=== PATIENT | female | born 1980 | race African-American/Black ===

== ENCOUNTER 2018-03-02 17:46 | Emergency (ER) | payer OTHER ==
[2018-03-02 18:33] VITALS: BMI 24.3
[2018-03-02] MEDS ORDERED: ALBUTEROL SO4 2.5/IPRATROPIUM 0.5 INH SOL 3 ML VIAL.NEB. NEB ONE (20:19)
--- NOTE | 2018-03-02 20:51 | PDOC ---
History of Present Illness <Rehana Rivera - Last Filed: 03/02/18 22:49> - General History Source: Care Provider Exam Limitations: Clinical Condition - History of Present Illness Initial Comments: Ms. Wise is a 37 yo F with a hx of microcephalus, epilepsy, quadriplegia, scoliosis, asthma, and intellectual disability presents to the emergency department from [facility] with wheezing and increased noisy breathing. Per the nursing staff, she began having the wheezes at approximately 5 pm. The patient is non verbal and thus unable to take history from the patient. [facility] Allergies: NKDA Social hx: Denies tobacco, alcohol, and substance abuse <Keshav Delarosa - Last Filed: 03/04/18 01:33> - General Chief Complaint: Respiratory Stated Complaint: WHEEZING Time Seen by Provider: 03/02/18 18:50 Past History <Rehana Rivera - Last Filed: 03/02/18 22:49> - Past Medical History Asthma: Yes Cardiac Disorders: Yes COPD: No GI Disorders: Yes (esophagitis) Seizures: Yes (epilepsy) - Immunization History Immunization Up to Date: Yes - Suicide/Smoking/Psychosocial Hx Smoking History: Never smoked Hx Alcohol Use: No Drug/Substance Use Hx: No Substance Use Type: None <Keshav Delarosa - Last Filed: 03/04/18 01:33> - Past Medical History Allergies/Adverse Reactions: Allergies Allergy/AdvReac Type Severity Reaction Status Date / Time No Known Allergies Allergy Verified 03/02/18 18:31 Home Medications: Ambulatory Orders Calcium Carbonate/Vitamin D3 [Oyster Shell+D 250 mg Tablet] 500 mg GT BID Phenobarbital 32.4 mg GT DAILY 11/18/14 Phenobarbital 64.8 mg GT HS 11/18/14 Baclofen [Lioresal -] 20 mg GT BID tablet 11/28/14 Albuterol 2.5/Ipratropium 0.5 [Duoneb -] 1 neb NEB BID 01/01/18 Montelukast Sodium [Singulair] 10 mg PO HS 01/01/18 Bacitracin - [Bacitracin Topical Ointment -] 1 applic TP BID 03/02/18 Budesonide/Formeterol Fumarate [SYMBICORT 80/4.5mcg -] 1 inh PO BID 03/02/18 Clotrimazole [Antifungal] 14 gm TP BID 03/02/18 Hydrocortisone 1% Cream [Hytone 1% Cream -] 1 applic TP BID 03/02/18 Magnesium Hydrox 2400MG/30Ml [Milk of Magnesia -] 30 ml PO DAILY 03/02/18 Multivit-Min/FA/Lycopen/Lutein [Vitrum 50+ Senior Tablet] 1 each PO DAILY Mupirocin Cream [Bactroban 2% Cream -] 1 applic TP PRN PRN 03/02/18 Salicylic Acid/Sulfur [Sebex Shampoo] 118 ml TP DAILY 03/02/18 Review of Systems - Review of Systems Able to Perform ROS?: No (Unable to communicate ) <Keshav Delarosa - Last Filed: 03/04/18 01:33> *Physical Exam - Vital Signs Last Vital Signs Temp Pulse Resp BP Pulse Ox 98.2 F 115 H 16 111/82 95 03/02/18 22:41 03/02/18 22:41 03/02/18 22:41 03/02/18 22:41 03/02/18 22:41 <Rehana Rivera - Last Filed: 03/02/18 22:49> - Vital Signs Last Vital Signs Temp Pulse Resp BP Pulse Ox 98.9 F 112 H 22 122/86 97 03/02/18 18:31 03/02/18 18:31 03/02/18 18:31 03/02/18 18:31 03/02/18 19:36 - Physical Exam Comments: 03/04/18 01:23 Exam was limited due to patient's condition General Appearance: Yes: Nourished, Appropriately Dressed, Other (wheelchair bound. Loud upper respiratory breathing) HEENT: positive: EOMI, HI, Other (large keloid masses around the neck - per the registered nursing professor this is unchanged throughout the years. ) Neck: positive: Trachea midline. negative: Lymphadenopathy (R), Lymphadenopathy (L) Respiratory/Chest: positive: Wheezing (wheezing present in the lung [place] bilaterally. ). negative: Chest Tender, Respiratory Distress, Accessory Muscle Use Cardiovascular: positive: Regular Rhythm, S1, S2, Tachycardia. negative: Systolic Murmur Gastrointestinal/Abdominal: positive: Normal Bowel Sounds, Other (g tube present ). negative: Tender Musculoskeletal: positive: Decreased Range of Motion (deformed extremities - chronic. ). negative: Normal Inspection Extremity: positive: Normal Capillary Refill, Other (contracted all four extremities. ) Neurologic: positive: Alert <Keshav Delarosa - Last Filed: 03/04/18 01:33> ED Treatment Course - Medications Given in the ED: ED Medications Discontinued Medications Generic Name Dose Route Start Last Admin Trade Name Freq PRN Reason Stop Dose Admin Albuterol/Ipratropium 3 amp 03/02/18 20:19 03/02/18 21:05 Duoneb - NEB 03/02/18 20:20 3 amp ONCE ONE Administration <MiguelRehana Vickers - Last Filed: 03/02/18 22:49> - RADIOLOGY Radiology Studies Ordered: Category Date Time Status CHEST X-RAY PORTABLE* [RAD] Stat Radiology 03/02/18 20:20 Taken <Keshav Delarosa - Last Filed: 03/04/18 01:33> Medical Decision Making - Medical Decision Making 03/04/18 01:23 37 yo F with multiple significant past medical history presents to the emergency department with wheezing. ddx: URI, PNA, asthma exacerbation, bronchiolitis Initial vitals: Initial Vital Signs Temp Pulse Resp BP Pulse Ox 98.9 F 112 H 22 122/86 97 03/02/18 18:31 03/02/18 18:31 03/02/18 18:31 03/02/18 18:31 03/02/18 18:31 Work up: CXR does not show acute pathologies. Given 3 amps of duoneb in the department. Her O2 sats improved and the wheezing ceased. Patient appeared more comfortable and was discharged back to [facility] after speaking to Dr. Hooks and Nurse Sue. Dispo: DC to home <Keshav Delarosa - Last Filed: 03/04/18 01:33> *DC/Admit/Observation/Transfer <Rehana Rivera - Last Filed: 03/02/18 22:49> - Discharge Dispostion Decision to Admit order: No <Keshav Delarosa - Last Filed: 03/04/18 01:33> Diagnosis at time of Disposition: Asthma exacerbation Qualifiers: Asthma severity: mild Asthma persistence: unspecified Qualified Code(s): J45.901 - Unspecified asthma with (acute) exacerbation - Discharge Dispostion Disposition: HOME Condition at time of disposition: Stable - Patient Instructions Printed Discharge Instructions: DI for Asthma -- Adult Additional Instructions: please followup with Dr Jessee Mak
--- NOTE | 2018-03-02 22:20 | PDOC ---
Attending Attestation - Resident Resident Name: Keshav Delarosa - ED Attending Attestation I have performed the following: I have examined & evaluated the patient, The case was reviewed & discussed with the resident, I agree w/resident's findings & plan, Exceptions are as noted <Rehana Rivera - Last Filed: 03/02/18 22:49> - HPI HPI: 03/02/18 22:37 The patient is a 37 year old female, with a significant past medical history of MR, scoliosis, microcephalus, quadriplegia, epilepsy, asthma (many admissions, previously bipap/intubated per records), who presents to the emergency department from [facility] with, wheezing. The patient is contracted, nonverbal, and nonambulatory at baseline. Allergies: NKA Past surgical history: g-tube insertion, intubation - Physicial Exam PE: 03/02/18 22:51 GENERAL: Well-appearing, well-nourished. No apparent distress. HEENT: Microcephalus. Large keloid around the the entire neck. atraumatic. PERRL, EOM intact. CARDIOVASCULAR: Normal S1, S2. Regular rate and rhythm. PULMONARY: Scattered wheezing bilaterally. ABDOMEN: Soft, non-distended, non-tender. EXTREMITIES: Contracted all 4 extremities. Functional quadriplegia. SKIN: Large keloid to the antecubital fossa. Warm, dry. No rash NEUROLOGICAL: Nonverbal and nonambulatory at baseline. - Medical Decision Making 03/02/18 22:[address] Hooks, case was discussed. Call placed to Nurse Rogers, Case was discussed. [phone] Chest x-ray showed no effusions or infiltrates. Patient is discharged on bronchodilators. <Adrianna Randhawa - Last Filed: 03/02/18 22:51> Attestations - Attestations 03/02/18 22:41 Documentation prepared by Adrianna Randhawa, acting as vice president medical affairs for Rehana Rivera MD. <Adrianna Randhawa - Last Filed: 03/02/18 22:51>
[2018-03-02 22:45] VITALS: BP 111/82; PULSE 115; TEMP 98.2
== END 2018-03-02 23:04 | disposition home or self-care (01) ==
LOC: JER 17:46
PROC: 3E0F7GC Introduction of Other Therapeutic Substance into Respiratory Tract, Via Natural or Artificial Opening (ICD-10-PCS; principal; 2018-03-02)
DX: J45.901 Unspecified asthma with (acute) exacerbation (principal)
CPT/HCPCS: 71045-TC-FY; 94640; 99282-25; J7620

== ENCOUNTER 2018-03-31 19:28 | Observation (INO) | payer OTHER ==
[2018-03-31 19:54] VITALS: BMI 23.8
[2018-03-31] MEDS ORDERED: prednisoLONE SODIUM PHOSPHATE 15 MG/5 ML ORAL SOLN BOTTLE PO ONE (19:57)
[2018-03-31] MEDS ORDERED: DEXAMETHASONE SOD PHOSPHATE 10 MG/1 ML VIAL IM ONE (20:00)
--- NOTE | 2018-03-31 20:00 | PDOC ---
History of Present Illness - General Chief Complaint: Respiratory Distress Stated Complaint: ASTHMA Time Seen by Provider: 03/31/18 19:50 History Source: [facility] Records ([facility] : Dr. Jessee Mak) - History of Present Illness Initial Comments: 03/31/18 20:49 37 year old female with history of profound MR, seizure disorder, microcephalus , Seborrheic dermatitis, keloids, asthma send by PCP for evaluation. as Per PCp patient is currently on prednisone, duonebs and Augmentin, noted to be sating 84 % on RA and 94% on 2l, Patient was send for the evaluation. Past History - Past Medical History Allergies/Adverse Reactions: Allergies Allergy/AdvReac Type Severity Reaction Status Date / Time No Known Allergies Allergy Verified 03/31/18 19:54 Home Medications: Ambulatory Orders Calcium Carbonate/Vitamin D3 [Oyster Shell+D 250 mg Tablet] 500 mg GT BID Phenobarbital 32.4 mg GT DAILY 11/18/14 Phenobarbital 64.8 mg GT HS 11/18/14 Baclofen [Lioresal -] 20 mg GT BID tablet 11/28/14 Albuterol 2.5/Ipratropium 0.5 [Duoneb -] 1 neb NEB BID 01/01/18 Montelukast Sodium [Singulair] 10 mg PO HS 01/01/18 Bacitracin - [Bacitracin Topical Ointment -] 1 applic TP BID 03/02/18 Budesonide/Formeterol Fumarate [SYMBICORT 80/4.5mcg -] 1 inh PO BID 03/02/18 Clotrimazole [Antifungal] 14 gm TP BID 03/02/18 Hydrocortisone 1% Cream [Hytone 1% Cream -] 1 applic TP BID 03/02/18 Magnesium Hydrox 2400MG/30Ml [Milk of Magnesia -] 30 ml PO DAILY 03/02/18 Multivit-Min/FA/Lycopen/Lutein [Vitrum 50+ Senior Tablet] 1 each PO DAILY Mupirocin Cream [Bactroban 2% Cream -] 1 applic TP PRN PRN 03/02/18 Salicylic Acid/Sulfur [Sebex Shampoo] 118 ml TP DAILY 03/02/18 Asthma: Yes Cardiac Disorders: Yes COPD: No GI Disorders: Yes (esophagitis) Seizures: Yes (epilepsy) - Immunization History Immunization Up to Date: Yes - Suicide/Smoking/Psychosocial Hx Smoking History: Never smoked Hx Alcohol Use: No Drug/Substance Use Hx: No Substance Use Type: None Review of Systems - Review of Systems Able to Perform ROS?: Yes Is the patient limited Upper Sorbian proficient: No Constitutional: No: Symptoms Reported, See HPI, Chills, Diaphoresis, Fever, Loss of Appetite, Malaise, Night Sweats, Weakness, Weight Stable, Unintentional Wgt. Loss, Unexplained wgt Loss, Other Respiratory: Yes: Shortness of Breath, Wheezing Cardiac (ROS): No: Symptoms Reported, See HPI, Chest Pain, Edema, Irregular Heart Rate, Lightheadedness, Palpitations, Syncope, Chest Tightness, Other ABD/GI: No: Symptoms Reported, See HPI, Abdominal Distended, Abd. Pain w/ defecation, Blood Streaked Bowels, Constipated, Diarrhea, Difficulty Swallowing , Nausea, Poor Appetite, Poor Fluid Intake, Rectal Bleeding, Vomiting, Indigestion, Abdominal cramping, Tarry Stools, Other : No: Symptoms Reported, See HPI, Burning, Dysuria, Discharge, Frequency, Flank Pain, Hematuria, Incontinence, Pain, Urgency, Testicular Mass, Testicular Swelling, Lesions, Testicular Pain, Other *Physical Exam - Vital Signs 03/31/18 20:53 Last Vital Signs Temp Pulse Resp BP Pulse Ox 97.4 F L 151 H 22 H 110/66 96 03/31/18 20:25 03/31/18 19:30 03/31/18 20:25 03/31/18 19:30 03/31/18 20:34 - Physical Exam General Appearance: Yes: Moderate Distress Respiratory/Chest: positive: Rales, Wheezing, Other (cough) Gastrointestinal/Abdominal: positive: Normal Bowel Sounds, Soft, Other (GTT in place). negative: Tender Musculoskeletal: positive: Other (has sevre scoliosis) Extremity: positive: Normal Capillary Refill Integumentary: positive: Normal Color, Dry, Warm ED Treatment Course - LABORATORY CBC & Chemistry Diagram: 03/31/18 21:18 03/31/18 21:18 Progress Note - Progress Note Progress Note: A: sepsis, respiratory distress Medical Decision Making - Medical Decision Making 03/31/18 21:05 HRT: 117 resp 19 o2 sat 94-96% on room air. O2 sat 96-97% on room air. improved aeration. 03/31/18 22:49 Lactic acid 3 . hydration in process i spoke to Dr. Ulises Mak. patient to be admitted for 03/31/18 22:53 I spoke to SUNNY Murphy at [facility]. patients respiratory status improved. 03/31/18 23:15 patient signed out to Dr. Avila/ Dr. krause *DC/Admit/Observation/Transfer Diagnosis at time of Disposition: Elevated lactic acid level, Hypoxia, Lactic acidosis Asthma exacerbation Qualifiers: Asthma severity: moderate Asthma persistence: persistent Qualified Code(s): J45.41 - Moderate persistent asthma with (acute) exacerbation Sepsis Qualifiers: Sepsis type: sepsis due to unspecified organism Qualified Code(s): A41.9 - Sepsis, unspecified organism Pneumonia Qualifiers: Pneumonia type: due to unspecified organism Laterality: unspecified laterality Lung location: unspecified part of lung Qualified Code(s): J18.9 - Pneumonia, unspecified organism - Discharge Dispostion Condition at time of disposition: Guarded Decision to Admit order: Yes - Referrals - Patient Instructions - Post Discharge Activity
[2018-03-31] MEDS ORDERED: ALBUTEROL SO4 0.083% IH SOL 2.5 MG/3 ML VIAL.NEB. NEB ONE (20:06)
[2018-03-31] MEDS ORDERED: DEXAMETHASONE SOD PHOSPHATE 10 MG/1 ML VIAL ONE (20:07)
[2018-03-31] MEDS: ALBUTEROL SO4 0.083% IH SOL 2.5 MG/3 ML VIAL.NEB. NEB PRN ×3 (20:15→21:00)
[2018-03-31 21:37] LABS: BASO % 0.3 % (0-2.0); EOS % 0.8 % (0-4.5); HEMATOCRIT 46.4 % (32.4-45.2); HEMOGLOBIN 14.9 GM/dL (10.7-15.3); LYMPH % 13.6 % (8-40); MCH 27.1 pg (25.7-33.7); MCHC 32.2 g/dl (32.0-36.0); MEAN CELL VOLUME 84.2 fl (80-96); MEAN PLT VOLUME 9.6 fl (7.5-11.1); MONO % 8.3 % (3.8-10.2); PLATELET COUNT 281 K/MM3 (134-434); RBC 5.52 M/mm3 (3.60-5.2); RDW 14.4 % (11.6-15.6); WHITE BLOOD COUNT 12.3 K/mm3 (4.0-10.0)
[2018-03-31] MEDS ORDERED: SODIUM CHLORIDE 0.9% 1000 ML INFUS.BAG IV STA (21:44)
[2018-03-31 22:00] LABS: ALBUMIN 3.6 g/dl (3.4-5.0); ALK PHOS 85 U/L (45-117); ANION GAP 7 MMOL/L (8-16); BILIRUBIN,TOTAL 0.2 mg/dL (0.2-1); BLOOD UREA NITROGEN 12 mg/dL (7-18); CALCIUM 9.4 mg/dL (8.5-10.1); CHLORIDE 110 mmol/L (98-107); CO2 20 mmol/L (21-32); CREATININE 0.4 mg/dL (0.55-1.3); GLUCOSE,RANDOM 78 mg/dL (74-106); POTASSIUM 3.5 mmol/L (3.5-5.1); SGOT/AST 25 U/L (15-37); SGPT/ALT 36 U/L (13-61); SODIUM 137 mmol/L (136-145); TOT PROT 7.6 g/dl (6.4-8.2)
[2018-03-31] MEDS ORDERED: SODIUM CHLORIDE 1,000 ML IV STA (22:48)
[2018-03-31] MEDS ORDERED: PIPERACILLIN/TAZOBACTAM 4.5 GM VIAL IVPB ONE (22:49)
[2018-03-31] MEDS ORDERED: VANCOMYCIN 1 GRAM (PRE-DOCKED) 1,000 MG/250 ML BAG IVPB ONE (22:50)
--- NOTE | 2018-03-31 22:55 | PDOC ---
*Physical Exam - Vital Signs Last Vital Signs Temp Pulse Resp BP Pulse Ox 97.4 F L 151 H 22 H 110/66 96 03/31/18 20:25 03/31/18 19:30 03/31/18 20:25 03/31/18 19:30 03/31/18 20:34 - Physical Exam Comments: 03/31/18 22:51 Alert, mild respiratory distress. nonverbal, contracted. MMM, nl conjunctiva, anicteric; neck supple. tachycardic, mild respiratory distress 2/2 tachypnea. expiratory rhonchi with poor effort. abdomen soft nontender. No peripheral edema. normal color for ethnicity, WWP. +skin lesions over neck and arms abdomen. ED Treatment Course - LABORATORY CBC & Chemistry Diagram: 03/31/18 21:18 03/31/18 21:18 - ADDITIONAL ORDERS Additional order review: Laboratory Results 03/31/18 03/31/18 21:56 21:18 Sodium 137 Potassium 3.5 Chloride 110 H Carbon Dioxide 20 L Anion Gap 7 L BUN 12 Creatinine 0.4 L Creat Clearance w eGFR > 60 Random Glucose 78 Lactic Acid 3.3 H* Calcium 9.4 Total Bilirubin 0.2 AST 25 ALT 36 Alkaline Phosphatase 85 Total Protein 7.6 Albumin 3.6 03/31/18 21:18 RBC 5.52 H MCV 84.2 MCHC 32.2 RDW 14.4 MPV 9.6 Neutrophils % 77.0 Lymphocytes % 13.6 D Monocytes % 8.3 Eosinophils % 0.8 Basophils % 0.3 - Medications Given in the ED: ED Medications Discontinued Medications Generic Name Dose Route Start Last Admin Trade Name Freq PRN Reason Stop Dose Admin Dexamethasone Sodium Phosphate 10 mg 03/31/18 20:00 03/31/18 20:15 Decadron Injection - IM 03/31/18 20:01 10 mg ONCE ONE Administration Medical Decision Making - Medical Decision Making 03/31/18 22:51 Elvin 37 year old female with history of profound MR, seizure disorder, microcephalus, Seborrheic dermatitis, keloids, asthma from [place] for respiratory distress and hypoxia. patient is currently on prednisone, duonebs and Augmentin, noted to be SpO2 84% on RA and 94% on 2l, Patient was send for the evaluation. Vitals with tachypnea, tachycardia and low sats 94% initially on RA. afebrile rectally. Labs and lytes with leukocytosis of >12K, meeting sepsis criteria. Lactic elevated >3, given hydration will repeat. CXR appears clear. However, respiratory sx and hypoxia may be suggestive of pneumonia, will treat as health care associated. Refractory to outpatient abx, will broaden to vanc/zosyn given risk factors, chronic lung disease and facility residence. Blood and sputum cultures pending. Placed on NC for comfort. Duonebs and dexamethasone additionally. On reeval, no acute respiratory distress, does desats down to ~94% on RA, unknown baseline. History is limited due to comorbidities and nonverbal status, warrants observation for continued treatment Admit for asthma exacerbation, acute respiratory failure, pneumonia with pulse ox and tele monitoring. Discussed results and management plan with pt and family member at bedside, agree with impression and plan 03/31/18 22:54 *DC/Admit/Observation/Transfer Diagnosis at time of Disposition: Pneumonia, Acute respiratory failure, Hypoxia, Lactic acidosis, Sepsis Asthma exacerbation Qualifiers: Asthma severity: moderate Asthma persistence: persistent Qualified Code(s): J45.41 - Moderate persistent asthma with (acute) exacerbation - Discharge Dispostion Condition at time of disposition: Guarded Decision to Admit order: Yes - Referrals - Patient Instructions - Post Discharge Activity
--- NOTE | 2018-03-31 23:23 | PN ---
Teaching Attending Note Name of Resident: Chau Sawyer ATTENDING PHYSICIAN STATEMENT I saw and evaluated the patient. I reviewed the resident's note and discussed the case with the resident. I agree with the resident's findings and plan as documented. SUBJECTIVE: Patient is a 37 year old woman with a PMH of profound MR, scoliosis, microcephalus, quadriplegia, epilepsy, asthma (many admissions, previously bipap /intubated per records), Seborrheic dermatitis and keloids who presents to the ER from [facility] for respiratory distress and hypoxia. Patient is currently on prednisone, duonebs and Augmentin. Noted to have SpO2 84% on RA and 94% on 2l. Noted to have tachycardia, tachypnea and lactic acidosis in the ER. The patient is contracted, nonverbal, and nonambulatory at baseline. No witnessed recent seizures. OBJECTIVE: Alert, nonverbal Vital Signs Period Temp Pulse Resp BP Sys/Holley Pulse Ox Last 24 Hr 97.4 F-99.4 F 151 22-30 110/66 94-97 HEENT: No Jaundice, eye redness or discharge, PERRLA, Normocephalic, atraumatic. Keloid right ear. No nasal discharge. Neck: Supple, nontender. No palpable adenopathy or thyromegaly. No JVD Chest: Good effort. Clear to auscultation and percussion. Heart: Regular. No S3, rub or murmur Abdomen: Not distended, soft, nontender and no HSM. PEG in place. Diapers in place. No rebound or guarding. Normoactive bowel sounds. Ext: Peripheral pulses intact. No leg edema. Skin: Warm and dry. No petechiae, rash or ecchymosis. Multiple keloids. Neuro: Alert. Nonverbal. Limb contractures. Current Medications Generic Name Dose Route Start Last Admin Trade Name Freq PRN Reason Stop Dose Admin Albuterol Sulfate 1 amp 03/31/18 19:57 03/31/18 20:30 Ventolin 0.083% Nebulizer Soln - NEB 1 amp Q15M PRN Administration Dyspnea Home Medications Medication Instructions Recorded Calcium Carbonate/Vitamin D3 500 mg GT BID 11/18/14 [Oyster Shell+D 250 mg Tablet] Phenobarbital 32.4 mg GT DAILY 11/18/14 Phenobarbital 64.8 mg GT HS 11/18/14 Baclofen [Lioresal -] 20 mg GT BID tablet 11/28/14 Albuterol 2.5/Ipratropium 0.5 1 neb NEB BID 01/01/18 [Duoneb -] Montelukast Sodium [Singulair] 10 mg PO HS 01/01/18 Bacitracin - [Bacitracin Topical 1 applic TP BID 03/02/18 Ointment -] Budesonide/Formeterol Fumarate 1 inh PO BID 03/02/18 [SYMBICORT 80/4.5mcg -] Clotrimazole [Antifungal] 14 gm TP BID 03/02/18 Hydrocortisone 1% Cream [Hytone 1% 1 applic TP BID 03/02/18 Cream -] Magnesium Hydrox 2400MG/30Ml [Milk 30 ml PO DAILY 03/02/18 of Magnesia -] Multivit-Min/FA/Lycopen/Lutein 1 each PO DAILY 03/02/18 [Vitrum 50+ Senior Tablet] Mupirocin Cream [Bactroban 2% 1 applic TP PRN PRN 03/02/18 Cream -] Salicylic Acid/Sulfur [Sebex 118 ml TP DAILY 03/02/18 Shampoo] Abnormal Lab Results 03/31/18 03/31/18 03/31/18 21:18 21:18 21:56 WBC 12.3 H RBC 5.52 H Hct 46.4 H D Absolute Neuts (auto) 9.4 H Chloride 110 H Carbon Dioxide 20 L Anion Gap 7 L Creatinine 0.4 L Lactic Acid 3.3 H* ASSESSMENT AND PLAN: 1. Sepsis - No acute infiltrate on CXR. May have alternative explanation for lactic acidosis, but pending blood culture report, will treat with IV vancomycin and zosyn and consult ID. Urine legionella antigen. Duoneb q 4 hours and solumedrol 40 mg q 8 hours. Continue IV NS and trend lactic acid level. 2. DVT prophylaxis - Lovenox 40 mg SQ q 24 hours. 3. Advance directives - Full code
--- NOTE | 2018-03-31 23:56 | HP ---
CHIEF COMPLAINT: Per [facility] staff: Oxygen desaturation PCP: Dr Watson- [facility] HISTORY OF PRESENT ILLNESS: Pt is a 37 y/o lady with a significant past medical history of MR, congenital scoliosis (insertion of lugue gavin), melissa fundoplication, microcephalus, otitis media, volvulus small bowel quadriplegia, epilepsy, GERD, Vancomycin Resistant Enterococcus, and asthma who presented to [facility] yesterday evening () due to decreased oxygen saturation and increased work of breathing. Per [facility] staff, pt's SpO2 was 84% on room air and 94% on 2L O2. Pt is currently receiving prednisone, duoneb treatments, and augmentin at [facility]. Pt is contracted, nonverbal, and nonambulatory. Upon admission, pt was observed to be tachycardic, tachypneic, and to have a lactic acid level of 3.3. No witnessed seizure activity since 09/28/2013 per [facility] records. Pt was last seen in our ED on 03/02 of this year for asthma exacerbation. ER course was notable for: (1) Lactic Acid 3.3 (2) WBC 12.3 (3) RR on admission 33, HR 151 Recent Travel: negative PAST MEDICAL HISTORY: per HPI PAST SURGICAL HISTORY: Lugue gavin gavin insertion, G-Tube placement, appendectomy , cholecystectomy. Social History: Smoking: negative Alcohol: negative Drugs: negative Family History: Allergies No Known Allergies Allergy (Verified 03/31/18 19:54) HOME MEDICATIONS: Home Medications Medication Instructions Recorded Calcium Carbonate/Vitamin D3 500 mg GT BID 11/18/14 [Oyster Shell+D 250 mg Tablet] Phenobarbital 32.4 mg GT DAILY 11/18/14 Phenobarbital 64.8 mg GT HS 11/18/14 Baclofen [Lioresal -] 20 mg GT BID tablet 11/28/14 Albuterol 2.5/Ipratropium 0.5 1 neb NEB BID 01/01/18 [Duoneb -] Montelukast Sodium [Singulair] 10 mg PO HS 01/01/18 Bacitracin - [Bacitracin Topical 1 applic TP BID 03/02/18 Ointment -] Budesonide/Formeterol Fumarate 1 inh PO BID 03/02/18 [SYMBICORT 80/4.5mcg -] Clotrimazole [Antifungal] 14 gm TP BID 03/02/18 Hydrocortisone 1% Cream [Hytone 1% 1 applic TP BID 03/02/18 Cream -] Magnesium Hydrox 2400MG/30Ml [Milk 30 ml PO DAILY 03/02/18 of Magnesia -] Multivit-Min/FA/Lycopen/Lutein 1 each PO DAILY 03/02/18 [Vitrum 50+ Senior Tablet] Mupirocin Cream [Bactroban 2% 1 applic TP PRN PRN 03/02/18 Cream -] Salicylic Acid/Sulfur [Sebex 118 ml TP DAILY 03/02/18 Shampoo] REVIEW OF SYSTEMS Unable to obtain-pt nonverbal PHYSICAL EXAMINATION Vital Signs - 24 hr 03/31/18 03/31/18 03/31/18 19:30 20:25 20:34 Temperature 99.4 F 97.4 F L Pulse Rate 151 H Respiratory 30 H 22 H Rate Blood Pressure 110/66 O2 Sat by Pulse 94 L 97 96 Oximetry (%) GENERAL: Awake and Alert. Nonverbal. Tracks movement with eyes. HEAD: Microcephalic. Atraumatic EYES: PERRLA, EOMI EARS, NOSE, THROAT: MMM, missing teeth NECK: Multiple large keloids LUNGS: expiratory rhonchi HEART: Tachycardic, No MRG ABDOMEN: PEG in place. ND, NT, No Guarding MSK: Severe Scoliosis UPPER EXTREMITIES: Contractures upper and lower contractures. LOWER EXTREMITIES: Contractures upper and lower contractures. SKIN: Moist. Keloids. Laboratory Results - last 24 hr 03/31/18 03/31/18 03/31/18 21:18 21:18 21:56 WBC 12.3 H RBC 5.52 H Hgb 14.9 Hct 46.4 H D MCV 84.2 MCH 27.1 MCHC 32.2 RDW 14.4 Plt Count 281 MPV 9.6 Absolute Neuts (auto) 9.4 H Neutrophils % 77.0 Lymphocytes % 13.6 D Monocytes % 8.3 Eosinophils % 0.8 Basophils % 0.3 Nucleated RBC % 0 Sodium 137 Potassium 3.5 Chloride 110 H Carbon Dioxide 20 L Anion Gap 7 L BUN 12 Creatinine 0.4 L Creat Clearance w eGFR > 60 Random Glucose 78 Lactic Acid 3.3 H* Calcium 9.4 Total Bilirubin 0.2 AST 25 ALT 36 Alkaline Phosphatase 85 Total Protein 7.6 Albumin 3.6 ASSESSMENT/PLAN: Pt is a 37 y/o lady with a significant past medical history of MR, scoliosis, microcephalus, quadriplegia, epilepsy, and asthma (many admissions, previously bipap/intubated per records) who presented to [facility] yesterday evening (04/01/18 ) due to decreased oxygen saturation and increased work of breathing. # Sepsis 2/2 URI? -Lactic Acid 3.3, continue to trend - HR 151, RR 30. 2 SIRS Criteria met, source may be respiratory -Vanc/Zosyn until blood cultures results -ID Consult -Received 1,197cc bolus NS in ED -Continue IV Fluids -Influenza A and B # Lactic acidosis 2/2 asthma exacerbation and hyperventilation? -May be due to increased work of diaphragm -Received 3 amps Ventolin, 10 mg Decadron in ED -Ventolin Q4H Cathryn -Solumedrol 40 mg q8h -Spiriva -f/u lactic repeat lactic acid FEN NS@100cc/hr Monitor Electrolytes NPO, G-Tube Feeds DVT ppx: Hep SQ TID Dispo: Obs Visit type - Emergency Visit Emergency Visit: Yes ED Registration Date: 03/31/18 Care time: The patient presented to the Emergency Department on the above date and was hospitalized for further evaluation of their emergent condition. - New Patient This patient is new to me today: Yes Date on this admission: 04/01/18 - Critical Care Critical Care patient: No
[2018-03-31] MEDS ORDERED: PIPERACILLIN/TAZOB 4.5 GM 4.5 GM/100 ML BAG IVPB ONE (23:58)
[2018-04-01] MEDS ORDERED: VANCOMYCIN 1 GRAM (PRE-DOCKED) 1,000 MG/250 ML BAG IVPB ONE (00:42)
[2018-04-01] MEDS ORDERED: ALBUTEROL SO4 2.5/IPRATROPIUM 0.5 INH SOL 3 ML VIAL.NEB. NEB SCH (01:30)
[2018-04-01] MEDS ORDERED: methylPREDNISolone NA SUCC 40 MG/1 ML VIAL ONE (01:46)
[2018-04-01] MEDS ORDERED: ALBUTEROL SO4 0.083% IH SOL 2.5 MG/3 ML VIAL.NEB. NEB ONE (01:46)
[2018-04-01] MEDS: methylPREDNISolone NA SUCC 40 MG/1 ML VIAL IVPB SCH ×2 (02:25→10:01)
[2018-04-01] MEDS: ALBUTEROL SO4 0.083% IH SOL 2.5 MG/3 ML VIAL.NEB. NEB SCH ×5 (02:25→17:10)
[2018-04-01] MEDS ORDERED: SODIUM CHLORIDE 1,000 ML IV SCH (02:30)
[2018-04-01 02:38] LABS: VENOUS PC02 34.4 mmHg (38-52); VENOUS PH 7.4 (7.32-7.42)
[2018-04-01 02:48] LABS: URINE APPEARANCE CLEAR; URINE BILIRUBIN NEGATIVE (<2.0 mg/dL); URINE COLOR YELLOW; URINE GLUCOSE (UA) NEGATIVE (NEGATIVE); URINE KETONE 1+ (NEGATIVE); URINE LEUK ESTERASE NEGATIVE (NEGATIVE); URINE NITRITE NEGATIVE (NEGATIVE); URINE PROTEIN NEGATIVE (NEGATIVE); URINE UROBILINOGEN NEGATIVE mg/dL (0.2-1.0)
[2018-04-01] MEDS: HEPARIN NA (PORCINE) 5,000 UNITS/ML 1ML VIAL SQ SCH ×2 (06:17→15:28)
[2018-04-01 07:53] LABS: BASO % 0.2 % (0-2.0); HEMATOCRIT 42.7 % (32.4-45.2); HEMOGLOBIN 13.6 GM/dL (10.7-15.3); LYMPH % 8.1 % (8-40); MCH 27.2 pg (25.7-33.7); MEAN CELL VOLUME 85.1 fl (80-96); MEAN PLT VOLUME 9.5 fl (7.5-11.1); MONO % 3.8 % (3.8-10.2); NEUT % 87.9 % (42.8-82.8); PLATELET COUNT 255 K/MM3 (134-434); RBC 5.01 M/mm3 (3.60-5.2); RDW 14.3 % (11.6-15.6); WHITE BLOOD COUNT 6.7 K/mm3 (4.0-10.0)
[2018-04-01 08:02] LABS: ANION GAP 7 MMOL/L (8-16); BLOOD UREA NITROGEN 10 mg/dL (7-18); CHLORIDE 110 mmol/L (98-107); CO2 20 mmol/L (21-32); CREATININE 0.3 mg/dL (0.55-1.3); GLUCOSE,RANDOM 109 mg/dL (74-106); MAGNESIUM 2.1 mg/dL (1.8-2.4); PHOSPHOROUS 3.1 mg/dL (2.5-4.9); POTASSIUM 3.9 mmol/L (3.5-5.1); SODIUM 137 mmol/L (136-145)
[2018-04-01 08:38] LABS: INR 1.12 (0.83-1.09); PROTHROMBIN TIME (PATIENT) 13.2 SEC (9.7-13.0)
[2018-04-01 08:40] LABS: ACTIVATED PTT 27.3 SECONDS (25.2-36.5)
--- NOTE | 2018-04-01 09:37 | CON.ID ---
Consult Consult Specialty:: infectious disease Referred by:: hospitalist service Reason for Consultation:: possible pneumonia - History of Present Illness Chief Complaint: cough, hypoxia History of Present Illness: 37 yo female resident [facility] admitted with cough and hypoxia- she has a history of asthma, treated with augmentin 03/26 for 7 days and duonebs and prednisone taper sent to ED yesterday for persistent symptoms-cough cxray no clear infiltrate RA pulse ox 94% received zosyn/vancomycin/steroids in ED cultures sent resting comfortably with occasional cough now no supplemental oxygen, RA sat is 96% elevated lactic acid 3.3 - History Source History Provided By: Medical Record Limitations to Obtaining History: Clinical Condition - Past Medical History 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 ex lap for intestinal obstruction, small bowel volvulus. spinal fusion for scoliosis - Alcohol/Substance Use Hx Alcohol Use: No - Smoking History Smoking history: Never smoked Have you smoked in the past 12 months: No Home Medications - Allergies Allergies/Adverse Reactions: Allergies Allergy/AdvReac Type Severity Reaction Status Date / Time No Known Allergies Allergy Verified 03/31/18 19:54 - Home Medications Home Medications: Ambulatory Orders Calcium Carbonate/Vitamin D3 [Oyster Shell+D 250 mg Tablet] 500 mg GT BID Phenobarbital 32.4 mg GT DAILY 11/18/14 Phenobarbital 64.8 mg GT HS 11/18/14 Baclofen [Lioresal -] 20 mg GT BID tablet 11/28/14 Albuterol 2.5/Ipratropium 0.5 [Duoneb -] 1 neb NEB BID 01/01/18 Montelukast Sodium [Singulair] 10 mg PO HS 01/01/18 Bacitracin - [Bacitracin Topical Ointment -] 1 applic TP BID 03/02/18 Budesonide/Formeterol Fumarate [SYMBICORT 80/4.5mcg -] 1 inh PO BID 03/02/18 Hydrocortisone 1% Cream [Hytone 1% Cream -] 1 applic TP BID 03/02/18 Multivit-Min/FA/Lycopen/Lutein [Vitrum 50+ Senior Tablet] 1 each PO DAILY Salicylic Acid/Sulfur [Sebex Shampoo] 118 ml TP DAILY 03/02/18 Amoxicillin/Potassium Clav [Augmentin 875-125 Tablet] 1 each PO BID 04/01/18 Magnesium Hydrox 2400MG/30Ml [Milk of Magnesia -] 30 ml PO HS 04/01/18 Prednisone [Deltasone] 20 mg PO DAILY 04/01/18 Family Disease History - Family Disease History Family History: Unable to Obtain Review of Systems Unable to obtain ROS, reason: unable to obtain - Review of Systems Respiratory: reports: Cough Physical Exam Vital Signs: Vital Signs Temperature 97.7 F 04/01/18 06:07 Pulse Rate 107 H 04/01/18 06:07 Respiratory Rate 18 04/01/18 06:07 Blood Pressure 126/64 04/01/18 06:07 O2 Sat by Pulse Oximetry (%) 94 L 04/01/18 05:32 Constitutional: Yes: No Distress, Calm Eyes: Yes: Conjunctiva Clear HENT: Yes: Atraumatic, Normocephalic Cardiovascular: Yes: Regular Rate and Rhythm Respiratory: Yes: Regular Gastrointestinal: Yes: Normal Bowel Sounds, Soft, Other (GT) Extremities: Yes: WNL Edema: No Integumentary: Yes: Other (multiple keloids around neck, axilla, abdomen well healed back incision no sacral ulcers) Neurological: Yes: Alert Labs: CBC, BMP 04/01/18 06:45 04/01/18 06:45 cultures pending Imaging - Results Chest X-ray: Report Reviewed, Image Reviewed Problem List - Problems (1) Asthma exacerbation Code(s): J45.901 - UNSPECIFIED ASTHMA WITH (ACUTE) EXACERBATION Qualifiers: Asthma severity: moderate Asthma persistence: persistent Qualified Code(s ): J45.41 - Moderate persistent asthma with (acute) exacerbation (2) Bronchitis Code(s): J40 - BRONCHITIS, NOT SPECIFIED ACUTE OR CHRONIC (3) Lactic acidosis Code(s): E87.2 - ACIDOSIS (4) Seizure disorder Code(s): G40.909 - EPILEPSY, UNSP, NOT INTRACTABLE, WITHOUT STATUS EPILEPTICUS (5) History of keloid of skin Code(s): Z87.2 - PERSONAL HISTORY OF DISEASES OF THE SKIN, SUBCU Assessment/Plan doubt pneumonia would check rsv antigen given cough and history of hypoxia can treat with zithromax no evidence pneumonia on cxray suspect lactic acidosis is due to asthma exacerbation doubt sepsis
[2018-04-01] MEDS ORDERED: PT OWN MED DRAWER 7, Y5N ONE (09:51)
[2018-04-01] MEDS ORDERED: HYDROCORTISONE 1% TOPICAL CREAM 30 GM TUBE TP SCH (10:00)
[2018-04-01] MEDS ORDERED: MULTIVITAMINS (DAILY MVI) TABLET (FP) NR SCH (10:00)
[2018-04-01] MEDS ORDERED: CALCIUM 250MG/VIT-D 125 UNITS 1 COMBO TABLET NR SCH (10:00)
[2018-04-01] MEDS ORDERED: BACLOFEN 10 MG TABLET (FP) GT SCH (10:00)
[2018-04-01] MEDS ORDERED: SULFUR TP SCH (10:00)
[2018-04-01] MEDS ORDERED: PHENobarbital 30 MG TABLET GT SCH ×2 (10:00→22:00)
[2018-04-01] MEDS ORDERED: BACITRACIN 15 GM TUBE TOPICAL OINTMENT TP SCH (10:00)
[2018-04-01] MEDS ORDERED: TIOTROPIUM BROMIDE 2.5 MCG (SPIRIVA) RESPIMAT INHALER IH SCH (10:00)
[2018-04-01] MEDS ORDERED: SALICYLIC ACID TP SCH (10:00)
[2018-04-01] MEDS ORDERED: AZITHROMYCIN IVPB 500 MG/250 ML BAG IVPB ONE (10:30)
[2018-04-01] MEDS ORDERED: predniSONE 20 MG TABLET (UD) PO SCH ×2 (10:45→10:46)
--- NOTE | 2018-04-01 10:47 | EKG ---
Test Reason : Blood Pressure : / mmHG Vent. Rate : 101 BPM Atrial Rate : 101 BPM P-R Int : 120 ms QRS Dur : 068 ms QT Int : 360 ms P-R-T Axes : 051 058 045 degrees QTc Int : 466 ms SINUS TACHYCARDIA NONSPECIFIC T WAVE ABNORMALITY ABNORMAL ECG WHEN COMPARED WITH ECG OF 01-JAN-2018 14:05, NO SIGNIFICANT CHANGE WAS FOUND Confirmed by CR REINA MD ([id number]) on 04/01/2018 10:46:54 AM Referred By: Confirmed By:CR REINA MD
[2018-04-01 14:15] VITALS: BP 110/72; PULSE 91; TEMP 97.7
--- NOTE | 2018-04-01 15:25 | PN ---
Teaching Attending Note Name of Resident: Ary Kim ATTENDING PHYSICIAN STATEMENT I saw and evaluated the patient. I reviewed the resident's note and discussed the case with the resident. I agree with the resident's findings and plan as documented with exceptions below. SUBJECTIVE: Patient seen and examined, non verbal, awake, comfortable. OBJECTIVE: Vital Signs Period Temp Pulse Resp BP Sys/[place]ley Pulse Ox Last 24 Hr 97.4 F-99.4 F 91-151 18-30 101-126/64-80 94-100 Intake & Output 03/29/18 03/30/18 03/31/18 04/01/18 23:59 23:59 23:59 23:59 Intake Total 200 Balance 200 Weight 88 lb 88 lb General: lying in bed in no acute distress Chest: good air entry, occasional rhonchi, no use of accessory muscles Abdomen;Soft, ND, positive bowel sounds Neck: right neck keloid Extremities: contractures Home Medications Medication Instructions Recorded Calcium Carbonate/Vitamin D3 500 mg GT BID 11/18/14 [Oyster Shell+D 250 mg Tablet] Phenobarbital 32.4 mg GT DAILY 11/18/14 Phenobarbital 64.8 mg GT HS 11/18/14 Baclofen [Lioresal -] 20 mg GT BID tablet 11/28/14 Albuterol 2.5/Ipratropium 0.5 1 neb NEB BID 01/01/18 [Duoneb -] Montelukast Sodium [Singulair] 10 mg PO HS 01/01/18 Budesonide/Formeterol Fumarate 2 inh PO BID 03/02/18 [SYMBICORT 80/4.5mcg -] Multivit-Min/FA/Lycopen/Lutein 1 each PO DAILY 03/02/18 [Vitrum 50+ Senior Tablet] Salicylic Acid/Sulfur [Sebex 118 ml TP Q2D 03/02/18 Shampoo] Azithromycin [Zithromax -] 250 mg PO DAILY #4 tablet 04/01/18 Magnesium Hydrox 2400MG/30Ml [Milk 30 ml PO HS 04/01/18 of Magnesia -] Mupirocin Ointment [Bactroban 2% 1 applic TP BID 04/01/18 Ointment -] predniSONE [Deltasone -] See Taper PO ASDIR #20 tab 04/01/18 Active Medications Al Hydroxide/Mg Hydroxide (Mylanta Oral Suspension -) 30 ml GT HS JAMIL Albuterol Sulfate (Ventolin 0.083% Nebulizer Soln -) 1 amp NEB Q4HWA [facility] Last Admin: 04/01/18 11:00 Dose: 1 amp Bacitracin (Bacitracin -) 1 applic TP BID [facility] Last Admin: 04/01/18 10:57 Dose: 1 applic Baclofen (Lioresal -) 20 mg GT BID [facility] Last Admin: 04/01/18 10:01 Dose: 20 mg Calcium/Vitamin D (Oscal 250 Mg+D -) 1 tab NR BID [facility] Last Admin: 04/01/18 10:02 Dose: 1 tab Heparin Sodium (Porcine) (Heparin -) 5,000 unit SQ TID [facility] Last Admin: 04/01/18 06:17 Dose: 5,000 unit Hydrocortisone (Hytone 1% Cream -) 1 applic TP BID JAMIL Sodium Chloride (Normal Saline -) 1,000 mls @ 100 mls/hr IV ASDIR [facility] Last Admin: 04/01/18 02:25 Dose: 100 mls/hr Azithromycin 250 mg/ Dextrose 250 mls @ 250 mls/hr IVPB DAILY [facility] Montelukast Sodium (Singulair -) 10 mg GT HS JAMIL Multivitamins/Minerals/Vitamin C (Tab-A-Vit -) 1 tab NR DAILY [facility] Last Admin: 04/01/18 10:01 Dose: 1 tab Phenobarbital (Phenobarbital -) 30 mg GT DAILY [facility] Last Admin: 04/01/18 10:02 Dose: 30 mg Phenobarbital (Phenobarbital -) 60 mg GT HS [facility] Prednisone (Deltasone -) 40 mg PO DAILY [facility] Tiotropium [place] (Spiriva Respimat) 2 puff IH DAILY [facility] Laboratory Results - last 24 hr 03/31/18 03/31/18 03/31/18 21:18 21:18 21:56 WBC 12.3 H RBC 5.52 H Hgb 14.9 Hct 46.4 H D MCV 84.2 MCH 27.1 MCHC 32.2 RDW 14.4 Plt Count 281 MPV 9.6 Absolute Neuts (auto) 9.4 H Neutrophils % 77.0 Lymphocytes % 13.6 D Monocytes % 8.3 Eosinophils % 0.8 Basophils % 0.3 Nucleated RBC % 0 PT with INR INR PTT (Actin FS) VBG pH POC VBG pCO2 POC VBG pO2 Mixed VBG HCO3 Sodium 137 Potassium 3.5 Chloride 110 H Carbon Dioxide 20 L Anion Gap 7 L BUN 12 Creatinine 0.4 L Creat Clearance w eGFR > 60 Random Glucose 78 Lactic Acid 3.3 H* Calcium 9.4 Phosphorus Magnesium Total Bilirubin 0.2 AST 25 ALT 36 Alkaline Phosphatase 85 Troponin I Total Protein 7.6 Albumin 3.6 Urine Color Urine Appearance Urine pH Ur Specific [place] Urine Protein Urine Glucose (UA) Urine Ketones Urine Blood Urine Nitrite Urine Bilirubin Urine Urobilinogen Ur Leukocyte Esterase 04/01/18 04/01/18 04/01/18 02:00 02:15 02:26 WBC RBC Hgb Hct MCV MCH MCHC RDW Plt Count MPV Absolute Neuts (auto) Neutrophils % Lymphocytes % Monocytes % Eosinophils % Basophils % Nucleated RBC % PT with INR INR PTT (Actin FS) VBG pH 7.40 POC VBG pCO2 34.4 L POC VBG pO2 106.0 H Mixed VBG HCO3 20.6 Sodium Potassium Chloride Carbon Dioxide Anion Gap BUN Creatinine Creat Clearance w eGFR Random Glucose Lactic Acid Calcium Phosphorus Magnesium Total Bilirubin AST ALT Alkaline Phosphatase Troponin I < 0.02 Total Protein Albumin Urine Color Yellow Urine Appearance Clear Urine pH 5.0 D Ur Specific [place] 1.032 Urine Protein Negative Urine Glucose (UA) Negative Urine Ketones 1+ H Urine Blood Negative Urine Nitrite Negative Urine Bilirubin Negative Urine Urobilinogen Negative Ur Leukocyte Esterase Negative 04/01/18 04/01/18 04/01/18 02:26 06:45 06:45 WBC 6.7 RBC 5.01 Hgb 13.6 Hct 42.7 MCV 85.1 MCH 27.2 MCHC 32.0 RDW 14.3 Plt Count 255 MPV 9.5 Absolute Neuts (auto) 5.9 Neutrophils % 87.9 H Lymphocytes % 8.1 D Monocytes % 3.8 Eosinophils % 0.0 D Basophils % 0.2 Nucleated RBC % 0 PT with INR 13.20 H INR 1.12 H PTT (Actin FS) 27.3 VBG pH POC VBG pCO2 POC VBG pO2 Mixed VBG HCO3 Sodium Potassium Chloride Carbon Dioxide Anion Gap BUN Creatinine Creat Clearance w eGFR Random Glucose Lactic Acid 3.4 H* Calcium Phosphorus Magnesium Total Bilirubin AST ALT Alkaline Phosphatase Troponin I Total Protein Albumin Urine Color Urine Appearance Urine pH Ur Specific [place] Urine Protein Urine Glucose (UA) Urine Ketones Urine Blood Urine Nitrite Urine Bilirubin Urine Urobilinogen Ur Leukocyte Esterase 04/01/18 06:45 WBC RBC Hgb Hct MCV MCH MCHC RDW Plt Count MPV Absolute Neuts (auto) Neutrophils % Lymphocytes % Monocytes % Eosinophils % Basophils % Nucleated RBC % PT with INR INR PTT (Actin FS) VBG pH POC VBG pCO2 POC VBG pO2 Mixed VBG HCO3 Sodium 137 Potassium 3.9 Chloride 110 H Carbon Dioxide 20 L Anion Gap 7 L BUN 10 Creatinine 0.3 L Creat Clearance w eGFR > 60 Random Glucose 109 H Lactic Acid Calcium 9.0 Phosphorus 3.1 Magnesium 2.1 Total Bilirubin AST ALT Alkaline Phosphatase Troponin I Total Protein Albumin Urine Color Urine Appearance Urine pH Ur Specific [place] Urine Protein Urine Glucose (UA) Urine Ketones Urine Blood Urine Nitrite Urine Bilirubin Urine Urobilinogen Ur Leukocyte Esterase ASSESSMENT AND PLAN: 37 yof from [facility] with MR, congenital scoliosis (insertion of lugue gavin) , melissa fundoplication, microcephalus, otitis media, volvulus small bowel quadriplegia, epilepsy, GERD, Vancomycin Resistant Enterococcus, and asthma admitted with transient hypoxia -transient hypoxia, ?Aspiration vs mild asthma exacerbation -MR Plan: oxygenating well on RA, breathing comfortably, ID input noted. Azithromycin for 4 days. Prednisone rapid taper. continue home meds. resume tube feeds Dc back to [place].
--- NOTE | 2018-04-01 15:26 | DS ---
Physical Exam: SUBJECTIVE: Patient seen and examined this morning at bedside. Patient non verbal at baseline. Not requiring supplemental O2 since arriving on the floors. No overnight events since arrival as per nursing. Unable to perform review of systems. OBJECTIVE: Vital Signs Period Temp Pulse Resp BP Sys/Holley Pulse Ox Last 24 Hr 97.4 F-99.4 F 91-151 18-30 101-126/64-80 94-100 PHYSICAL EXAM GENERAL: NAD, lying comfortably with head of bed elevated, Nonverbal HEAD: Microcephalic, Atraumatic EYES: PERRL NECK: Supple, No JVD, Multiple large keloids LUNGS: Limited exam, Poor inspiratory effort however no rhonchi or crackles noted HEART: RRR, S1 S2 without murmur ABDOMEN: Soft, nontender, nondistended, + bowel sounds, no guarding. G tube in place with clean, dry surrounding dressing, no surrounding erythema EXTREMITIES: 2+ pulses, No peripheral edema, Extremities contracted b/l NEUROLOGICAL: Unable to assess due to baseline mental status. SKIN: Warm, dry, multiple Keloids present LABS Laboratory Results - last 24 hr 03/31/18 03/31/18 03/31/18 21:18 21:18 21:56 WBC 12.3 H RBC 5.52 H Hgb 14.9 Hct 46.4 H D MCV 84.2 MCH 27.1 MCHC 32.2 RDW 14.4 Plt Count 281 MPV 9.6 Absolute Neuts (auto) 9.4 H Neutrophils % 77.0 Lymphocytes % 13.6 D Monocytes % 8.3 Eosinophils % 0.8 Basophils % 0.3 Nucleated RBC % 0 PT with INR INR PTT (Actin FS) VBG pH POC VBG pCO2 POC VBG pO2 Mixed VBG HCO3 Sodium 137 Potassium 3.5 Chloride 110 H Carbon Dioxide 20 L Anion Gap 7 L BUN 12 Creatinine 0.4 L Creat Clearance w eGFR > 60 Random Glucose 78 Lactic Acid 3.3 H* Calcium 9.4 Phosphorus Magnesium Total Bilirubin 0.2 AST 25 ALT 36 Alkaline Phosphatase 85 Troponin I Total Protein 7.6 Albumin 3.6 Urine Color Urine Appearance Urine pH Ur Specific Stovall Urine Protein Urine Glucose (UA) Urine Ketones Urine Blood Urine Nitrite Urine Bilirubin Urine Urobilinogen Ur Leukocyte Esterase 04/01/18 04/01/18 04/01/18 02:00 02:15 02:26 WBC RBC Hgb Hct MCV MCH MCHC RDW Plt Count MPV Absolute Neuts (auto) Neutrophils % Lymphocytes % Monocytes % Eosinophils % Basophils % Nucleated RBC % PT with INR INR PTT (Actin FS) VBG pH 7.40 POC VBG pCO2 34.4 L POC VBG pO2 106.0 H Mixed VBG HCO3 20.6 Sodium Potassium Chloride Carbon Dioxide Anion Gap BUN Creatinine Creat Clearance w eGFR Random Glucose Lactic Acid Calcium Phosphorus Magnesium Total Bilirubin AST ALT Alkaline Phosphatase Troponin I < 0.02 Total Protein Albumin Urine Color Yellow Urine Appearance Clear Urine pH 5.0 D Ur Specific Stovall 1.032 Urine Protein Negative Urine Glucose (UA) Negative Urine Ketones 1+ H Urine Blood Negative Urine Nitrite Negative Urine Bilirubin Negative Urine Urobilinogen Negative Ur Leukocyte Esterase Negative 04/01/18 04/01/18 04/01/18 02:26 06:45 06:45 WBC 6.7 RBC 5.01 Hgb 13.6 Hct 42.7 MCV 85.1 MCH 27.2 MCHC 32.0 RDW 14.3 Plt Count 255 MPV 9.5 Absolute Neuts (auto) 5.9 Neutrophils % 87.9 H Lymphocytes % 8.1 D Monocytes % 3.8 Eosinophils % 0.0 D Basophils % 0.2 Nucleated RBC % 0 PT with INR 13.20 H INR 1.12 H PTT (Actin FS) 27.3 VBG pH POC VBG pCO2 POC VBG pO2 Mixed VBG HCO3 Sodium Potassium Chloride Carbon Dioxide Anion Gap BUN Creatinine Creat Clearance w eGFR Random Glucose Lactic Acid 3.4 H* Calcium Phosphorus Magnesium Total Bilirubin AST ALT Alkaline Phosphatase Troponin I Total Protein Albumin Urine Color Urine Appearance Urine pH Ur Specific Stovall Urine Protein Urine Glucose (UA) Urine Ketones Urine Blood Urine Nitrite Urine Bilirubin Urine Urobilinogen Ur Leukocyte Esterase 04/01/18 06:45 WBC RBC Hgb Hct MCV MCH MCHC RDW Plt Count MPV Absolute Neuts (auto) Neutrophils % Lymphocytes % Monocytes % Eosinophils % Basophils % Nucleated RBC % PT with INR INR PTT (Actin FS) VBG pH POC VBG pCO2 POC VBG pO2 Mixed VBG HCO3 Sodium 137 Potassium 3.9 Chloride 110 H Carbon Dioxide 20 L Anion Gap 7 L BUN 10 Creatinine 0.3 L Creat Clearance w eGFR > 60 Random Glucose 109 H Lactic Acid Calcium 9.0 Phosphorus 3.1 Magnesium 2.1 Total Bilirubin AST ALT Alkaline Phosphatase Troponin I Total Protein Albumin Urine Color Urine Appearance Urine pH Ur Specific Stovall Urine Protein Urine Glucose (UA) Urine Ketones Urine Blood Urine Nitrite Urine Bilirubin Urine Urobilinogen Ur Leukocyte Esterase Microbiology 03/31/18 21:18 Blood - Peripheral Venous Blood Culture - Preliminary NO GROWTH OBTAINED AFTER 24 HOURS, INCUBATION TO CONTINUE FOR 4 DAYS. 03/31/18 21:18 Blood - Peripheral Venous Blood Culture - Preliminary NO GROWTH OBTAINED AFTER 24 HOURS, INCUBATION TO CONTINUE FOR 4 DAYS. 04/01/18 10:00 Nasopharyngeal Swab Respiratory Syncytial Virus Ag - Final 04/01/18 02:26 Urine For Antigen Detection Legionella Antigen - Final 04/01/18 02:26 Urine For Antigen Detection Streptococcus pneumoniae Antigen (M - Final IMAGING: -CXR: Limited study with no acute pathology. HOSPITAL COURSE: Date of Admission:03/31/18 Date of Discharge: 04/01/18 37 y/o F with PMHx of MR, scoliosis, microcephalus, quadriplegia, epilepsy, and asthma (multiple previous admissions, hx of bipap/intubated per records) who presented to [facility] with decreased oxygen saturation. CXR (noted above) did not show any acute pathology. Patient was given breathing treatments and 2 doses of IV Solumederol. Infectious disease was consulted and recommended a course of Zithromax. She was taken off of Supplemental O2 and oxygenated well on Room air breathing comfortably without any audible wheezes. Patient was discharged back to [facility] on a 5 day course of Zithromax 250mg daily, a prednisone taper, and instructions to resume home meds. Minutes to complete discharge: 40 Discharge Summary Reason For Visit: EXACERBATION OF ASTHMA,HYPOXIA,SEPSIS, Current Active Problems Asthma exacerbation (Acute) Elevated lactic acid level (Acute) History of keloid of skin (Acute) Hypoxia (Acute) Lactic acidosis (Acute) Condition: Improved - Instructions Diet, Activity, Other Instructions: You were admitted to the hospital because your oxygen saturation decreased to 84 %. You received breathing treatments and Steroids and your breathing improved. You are now saturating at >92%on room air. Imaging did not reveal any acute pathology. You are being discharged on a 5 day course of Zithromax 250mg. You are being discharged on a Steroid taper as follows: 40mg daily for 2 days 30mg daily for 2 days 20mg daily for 2 days 10mg daily for 2 days You are also being discharged on a nebulizer treatment to help with breathing. Please continue to implement aspiration percautions including keeping the head of the bed elevated. Please follow up with your primary care physician in one week. Continue all your other medications as prescribed Please return to the ER if you have any signs or symptoms of chest pain, shortness of breath, uncontrollable fever, chills, nausea, vomiting, numbness, tingling, or weakness in any part of your body, changes in vision, or slurred speech. Please return to the ER if symptoms persist, worsen, or new symptoms arise. Disposition: [facility]ACILITY - Home Medications Comprehensive Discharge Medication List: Ambulatory Orders Calcium Carbonate/Vitamin D3 [Oyster Shell+D 250 mg Tablet] 500 mg GT BID Phenobarbital 32.4 mg GT DAILY 11/18/14 Phenobarbital 64.8 mg GT HS 11/18/14 Baclofen [Lioresal -] 20 mg GT BID tablet 11/28/14 Albuterol 2.5/Ipratropium 0.5 [Duoneb -] 1 neb NEB BID 01/01/18 Montelukast Sodium [Singulair] 10 mg PO HS 01/01/18 Budesonide/Formeterol Fumarate [SYMBICORT 80/4.5mcg -] 2 inh PO BID 03/02/18 Multivit-Min/FA/Lycopen/Lutein [Vitrum 50+ Senior Tablet] 1 each PO DAILY Salicylic Acid/Sulfur [Sebex Shampoo] 118 ml TP Q2D 03/02/18 Azithromycin [Zithromax -] 250 mg PO DAILY #4 tablet 04/01/18 Magnesium Hydrox 2400MG/30Ml [Milk of Magnesia -] 30 ml PO HS 04/01/18 Mupirocin Ointment [Bactroban 2% Ointment -] 1 applic TP BID 04/01/18 predniSONE [Deltasone -] See Taper PO ASDIR #20 tab 04/01/18 This patient is new to me today: Yes Date on this admission: 03/31/18 Emergency Visit: Yes ED Registration Date: 03/31/18 Care time: The patient presented to the Emergency Department on the above date and was hospitalized for further evaluation of their emergent condition. Critical Care patient: No - Discharge Referral Referred to [facility] Med P.C.: No
[2018-04-01] MEDS ORDERED: MAG HYDROX/AL HYDROX/SIMETH 30 ML UNIT-DOSE CUP GT SCH (22:00)
[2018-04-01] MEDS ORDERED: MONTELUKAST NA 10 MG TABLET GT SCH (22:00)
[2018-04-02] MEDS ORDERED: AZITHROMYCIN IVPB 250 MG in DEXTROSE 5%-WATER - 250 ML IVPB SCH (10:00)
== END 2018-04-01 18:28 ==
LOC: JER 19:28 → INTOOBSV 22:57 → UNDOADMOB 22:57 → JERBED 22:57 → J7W 04-01 03:55
PROVIDERS: ADMIT Internal Medicine; ATTEND Hospitalist
PROC: 3E0333Z Introduction of Anti-inflammatory into Peripheral Vein, Percutaneous Approach (ICD-10-PCS; principal; 2018-03-31)
PROC: 3E03329 Introduction of Other Anti-infective into Peripheral Vein, Percutaneous Approach (ICD-10-PCS; 2018-03-31)
PROC: 3E0337Z Introduction of Electrolytic and Water Balance Substance into Peripheral Vein, Percutaneous Approach (ICD-10-PCS; 2018-03-31)
PROC: 3E023NZ Introduction of Analgesics, Hypnotics, Sedatives into Muscle, Percutaneous Approach (ICD-10-PCS; 2018-03-31)
PROC: 3E013GC Introduction of Other Therapeutic Substance into Subcutaneous Tissue, Percutaneous Approach (ICD-10-PCS; 2018-03-31)
PROC: 3E0F7GC Introduction of Other Therapeutic Substance into Respiratory Tract, Via Natural or Artificial Opening (ICD-10-PCS; 2018-03-31)
DX: J45.41 Moderate persistent asthma with (acute) exacerbation (principal); A41.9 Sepsis, unspecified organism; R74.0 Nonspecific elevation of levels of transaminase and lactic acid dehydrogenase [LDH]; R09.02 Hypoxemia; E87.2 Acidosis; F73 Profound intellectual disabilities; G40.909 Epilepsy, unspecified, not intractable, without status epilepticus; L21.9 Seborrheic dermatitis, unspecified; J40 Bronchitis, not specified as acute or chronic; Z87.2 Personal history of diseases of the skin and subcutaneous tissue
CPT/HCPCS: 36415; 71045-TC-FY; 80048; 80053; 81003; 82803; 83605; 83735; 84100; 84484; 85025; 85610; 85730; 87040; 87086; 87420; 87899; 93005; 93010; 94640; 96365; 96372; 96375; 99285-25; G0378; J0475; J1100; J1644; J7030

== ENCOUNTER 2018-07-24 20:15 | Emergency (ER) | payer OTHER ==
--- NOTE | 2018-07-24 20:24 | PDOC ---
Rapid Medical Evaluation Time Seen by Provider: 07/24/18 20:22 Medical Evaluation: Allergies Allergy/AdvReac Type Severity Reaction Status Date / Time No Known Allergies Allergy Verified 03/31/18 19:54 07/24/18 20:22 I have performed a brief in-person evaluation of this patient. The patient presents with a chief complaint of:R foot pain tenderness, no specific injury Pertinent physical exam findings:pt non verbal in wheelchair R foot swelling I have ordered the following:x-ray The patient will proceed to the ED for further evaluation. Discharge Disposition - Diagnosis Foot pain, right - Referrals - Patient Instructions - Post Discharge Activity
[2018-07-24 20:34] VITALS: BP 106/74; PULSE 107; TEMP 98; BMI 33.7
== END 2018-07-24 21:56 | disposition home or self-care (01) ==
LOC: JER 20:15 → JERFT 20:15
DX: M79.671 Pain in right foot (principal)
CPT/HCPCS: 99281-25

== ENCOUNTER → 2018-07-25 | Emergency (ER) | payer OTHER | LOC: JER 08:39 ==

== ENCOUNTER 2018-08-08 13:39 | Emergency (ER) | payer OTHER ==
[2018-08-08 13:46] VITALS: BMI 29.6
--- NOTE | 2018-08-08 14:49 | PDOC ---
History of Present Illness - General Chief Complaint: Shortness of Breath Stated Complaint: DIFFICULT BREATHING Time Seen by Provider: 08/08/18 14:47 - History of Present Illness Initial Comments: 38yo F sent from [facility] with history of microcephaly, epilepsy, quadriplegia, scoliosis, and asthma presenting with shortness of breath. Patient 's aide is at the bedside, but since care was recently transferred to her, she is not able to provide much collateral history regarding patient's recent history. She states patient is breathing more loudly than at her baseline. Unknown what treatments she had received so far, or if she has had any fever. Past History - Past Medical History Allergies/Adverse Reactions: Allergies Allergy/AdvReac Type Severity Reaction Status Date / Time No Known Allergies Allergy Verified 08/08/18 13:43 Home Medications: Ambulatory Orders Acetaminophen Oral Solution [Tylenol Oral Solution -] 650 mg GT Q6H PRN Baclofen 20 mg GT BID 08/08/18 Budesonide/Formeterol Fumarate [SYMBICORT 80/4.5mcg -] 1 inh IN BID 08/08/18 Budesonide/Formeterol Fumarate [SYMBICORT 80/4.5mcg -] 2 inh PO BID 08/08/18 Calcium Carbonate/Vitamin D3 [Oyster Shell 500-Vit D3 200 Pk] 1 each GT BID Clotrimazole 45 appful TD BID 08/08/18 Hydrocortisone 1% Cream [Hytone 1% Cream -] 1 applic TP BID 08/08/18 Ipratropium/Albuterol Sulfate [Iprat-Albut 0.5-3(2.5) mg/3 ml] 3 ml IH QID 08/08 Magnesium Hydrox 2400MG/30Ml [Milk of Magnesia -] 30 ml GT HS 08/08/18 Montelukast Na [Singulair -] 10 mg GT HS 08/08/18 Multivit-Min/FA/Lycopen/Lutein [Vitrum 50+ Senior Tablet] 1 each GT DAILY Phenobarbital 32.4 mg GT ASDIR 08/08/18 Phenobarbital 64.8 mg GT HS 08/08/18 Prednisone [Deltasone] 40 mg PO DAILY #10 tablet 08/08/18 Asthma: Yes Cardiac Disorders: Yes COPD: No GI Disorders: Yes (esophagitis) Seizures: Yes (epilepsy) - Surgical History Abdominal Surgery: No Appendectomy: No Cardiac Surgery: No Cholecystectomy: Yes Lung Surgery: No Neurologic Surgery: No Orthopedic Surgery: No - Immunization History Immunization Up to Date: Yes - Suicide/Smoking/Psychosocial Hx Smoking History: Never smoked Have you smoked in the past 12 months: No Information on smoking cessation initiated: No Hx Alcohol Use: No Drug/Substance Use Hx: No Substance Use Type: None Review of Systems - Review of Systems Able to Perform ROS?: No (pt nonverbal) *Physical Exam - Vital Signs Last Vital Signs Temp Pulse Resp BP Pulse Ox 98.6 F 114 H 20 136/88 95 08/08/18 14:25 08/08/18 13:43 08/08/18 13:43 08/08/18 13:43 08/08/18 13:43 - Physical Exam Comments: General: Awake, alert Head: No signs of trauma Eyes: EOMI, sclera anicteric ENT: Moist mucus membranes Neck: Supple, significant keloid present Lungs: Diffuse wheezing bilaterally; breathing audibly upon expiration Cardio: Regular rhythm, S1 and S2 present Abdomen: Soft, nontender. No facial grimacing upon palpation Extremities: Contracted, Distal pulses present SKIN: Warm, Dry, normal turgor Neurologic: Nonverbal, nonambulatory Moderate Sedation - Procedure Monitoring Vital Signs: Procedure Monitoring Vital Signs Temperature 98.6 F 08/08/18 14:25 Pulse Rate 114 H 08/08/18 13:43 Respiratory Rate 20 08/08/18 13:43 Blood Pressure 136/88 08/08/18 13:43 O2 Sat by Pulse Oximetry (%) 95 08/08/18 13:43 ED Treatment Course - LABORATORY CBC & Chemistry Diagram: 08/08/18 17:04 08/08/18 17:04 Medical Decision Making - Medical Decision Making 38yo F sent from [facility] with history of microcephaly, epilepsy, quadriplegia, scoliosis, and asthma presenting with shortness of breath. DDX including but not limited to asthma exacerbation, pneumonia, URI, bronchitis , COPD, allergic reaction [place] paperwork: "residents presents with increase work of breathing. wheezing noted. Vs T 98.5, P 117-123, O2 Sat 94-95% BP 111/62, RR 20/min" Upon calling [place], patient with increased work of breathing for the last three days. Received two breathing treatments today before being sent to the ED with minimal improvement. Leukocytosis noted with eosinophilia, consistent with asthma exacerbation No anemia, electrolytes WNL, Tpn negative, Flu negative CXR without acute pathology Patient with improved lung exam after 3 duonebs, 3 albuterol, 125 solu-medrol, and 2g magnesium 08/08/18 18:[address] Jessee Mak, physician at [facility] 08/08/18 18:44 Discussed case with Nursing Review Specialist and requested transportation for patient' s discharge 40mg prednisone x 5 days sent to pharmacy 08/08/18 19:11 *DC/Admit/Observation/Transfer Diagnosis at time of Disposition: Asthma exacerbation Qualifiers: Asthma severity: unspecified severity Asthma persistence: unspecified Qualified Code(s): J45.901 - Unspecified asthma with (acute) exacerbation - Discharge Dispostion Disposition: HOME Condition at time of disposition: Improved - Prescriptions Prescriptions: Prednisone [Deltasone] 40 mg PO DAILY #10 tablet - Referrals Referrals: Evonne England [Primary Care Provider] - - Patient Instructions Printed Discharge Instructions: DI for Asthma -- Adult Additional Instructions: This patient was seen in the emergency department for an asthma exacerbation. Breathing treatments, solu-medrol, and magnesium improved her symptoms. Follow-up with her surgical services coordinator in one week. We sent prescriptions to your pharmacy: Predisone: Take 40mg daily for the next five days Continue taking home medications as prescribed. Call for emergency medical services or go to the emergency room right away if any of the following occurs: Difficulty breathing, unrelieved by medications Tightness in chest, unrelieved by medications If you think there is an emergency, call for medical help right away. - Post Discharge Activity
[2018-08-08] MEDS ORDERED: ALBUTEROL SO4 2.5/IPRATROPIUM 0.5 INH SOL 3 ML VIAL.NEB. NEB ONE ×2 (14:59→15:15)
[2018-08-08] MEDS ORDERED: FAMOTIDINE 20 MG/50 ML IVPB 20 MG/50 ML MG IVPB ONE (15:56)
[2018-08-08] MEDS ORDERED: ONDANSETRON 4 MG/2 ML VIAL ONE (15:56)
[2018-08-08] MEDS ORDERED: methylPREDNISolone NA SUCC 125 MG/2 ML VIAL IVPB ONE (16:14)
--- NOTE | 2018-08-08 16:18 | PDOC ---
Attending Attestation - Resident Resident Name: CarlosMiguel cervantes - ED Attending Attestation I have performed the following: I have examined & evaluated the patient, The case was reviewed & discussed with the resident, I agree w/resident's findings & plan, Exceptions are as noted - HPI HPI: 08/08/18 16:33 The patient is a 38 year old female (from [facility]) with a significant past medical history of MR, scoliosis, seizure disorder, microcephalus, seborrheic dermatitis, keloids, quadriplegia and asthma (requiring intubation) who presents to the emergency department with shortness of breath. As per the patients aide at bedside, the patient has been experiencing some intermittent loud breathing. As per the patients facility , the patient received 2 neb treatments with no significant relief. No other significant history is provided. History is limited due to pt's clinical status. - Physicial Exam PE: 08/08/18 16:47 GENERAL: Awake, alert, in mild resp distress NECK: multiple keloids almost circumstantially HEAD: No signs of trauma, microcephalic EYES: PERRLA, EOMI, sclera anicteric LUNGS: Breath sounds equal, +diffuse wheezing and tachypnea to 26. Mild costal retractions HEART: tachy but regular to 109, normal S1 and S2, no murmurs, rubs or gallops ABDOMEN: distended, normal BS. GT in place with no surrounding erythema. Rectal temp 99.6 EXTREMITIES: contracted x4, warm NEUROLOGICAL: non verbal, tracks examiner SKIN: multiple keloids to neck, vagina - Medical Decision Making 08/08/18 14:52 38yo F with MMP including asthma presents to the ED with shortness of breath from [facility]. +wheezing and mild increased WOB on exam. Plan for nebs , steroids, XR, flu swab, reassess. 08/08/18 17:14 CXR clear Flu neg Labs pending Pt status post steroids and nebs Still wheezing Will reassess Case signed out to oncoming attending for further mgmt/dispo
[2018-08-08] MEDS ORDERED: methylPREDNISolone NA SUCC 125 MG/2 ML VIAL ONE (16:29)
[2018-08-08] MEDS ORDERED: methylPREDNISolone NA SUCC 40 MG/1 ML VIAL IVPB ONE (16:41)
[2018-08-08] MEDS ORDERED: ALBUTEROL SO4 0.083% IH SOL 2.5 MG/3 ML VIAL.NEB. NEB ONE ×2 (16:41→17:43)
[2018-08-08 17:12] LABS: BASO % 0.6 % (0-2.0); EOS % 12.6 % (0-4.5); HEMATOCRIT 44.3 % (32.4-45.2); HEMOGLOBIN 15.2 GM/dL (10.7-15.3); LYMPH % 11.4 % (8-40); MCHC 34.2 g/dl (32.0-36.0); MEAN CELL VOLUME 84.8 fl (80-96); MEAN PLT VOLUME 8.8 fl (7.5-11.1); MONO % 7.5 % (3.8-10.2); NEUT % 67.9 % (42.8-82.8); PLATELET COUNT 279 K/MM3 (134-434); RBC 5.23 M/mm3 (3.60-5.2); RDW 15.2 % (11.6-15.6); WHITE BLOOD COUNT 12.2 K/mm3 (4.0-10.0)
[2018-08-08] MEDS ORDERED: MAGNESIUM SULF 50% (8.12 MEQ/2 ML-1 GM VIAL) IVPB ONE (17:18)
[2018-08-08] MEDS ORDERED: MAGNESIUM SULF 50% (8.12 MEQ/2 ML-1 GM VIAL) ONE (17:43)
[2018-08-08 18:06] LABS: ALBUMIN 3.3 g/dl (3.4-5.0); ALK PHOS 113 U/L (45-117); ANION GAP 7 MMOL/L (8-16); BLOOD UREA NITROGEN 12 mg/dL (7-18); CHLORIDE 106 mmol/L (98-107); CO2 25 mmol/L (21-32); CREATININE 0.4 mg/dL (0.55-1.3); GLUCOSE,RANDOM 80 mg/dL (74-106); POTASSIUM 4.1 mmol/L (3.5-5.1); SGOT/AST 24 U/L (15-37); SGPT/ALT 30 U/L (13-61); SODIUM 138 mmol/L (136-145); TOT PROT 7.4 g/dl (6.4-8.2)
[2018-08-08 18:07] LABS: BILIRUBIN,TOTAL 0.1 mg/dL (0.2-1)
--- NOTE | 2018-08-08 18:44 | PDOC ---
*Physical Exam - Vital Signs Last Vital Signs Temp Pulse Resp BP Pulse Ox 98.6 F 114 H 20 136/88 95 08/08/18 14:25 08/08/18 13:43 08/08/18 13:43 08/08/18 13:43 08/08/18 13:43 ED Treatment Course - LABORATORY CBC & Chemistry Diagram: 08/08/18 17:04 08/08/18 17:04 - ADDITIONAL ORDERS Additional order review: Laboratory Results 08/08/18 17:04 Sodium 138 Potassium 4.1 Chloride 106 Carbon Dioxide 25 Anion Gap 7 L BUN 12 Creatinine 0.4 L Creat Clearance w eGFR > 60 Random Glucose 80 Calcium 9.0 Total Bilirubin 0.1 L AST 24 ALT 30 Alkaline Phosphatase 113 Troponin I < 0.02 Total Protein 7.4 Albumin 3.3 L 08/08/18 17:04 RBC 5.23 H MCV 84.8 MCHC 34.2 RDW 15.2 MPV 8.8 Neutrophils % 67.9 D Lymphocytes % 11.4 D Monocytes % 7.5 D Eosinophils % 12.6 H D Basophils % 0.6 - Medications Given in the ED: ED Medications Discontinued Medications Generic Name Dose Route Start Last Admin Trade Name Freq PRN Reason Stop Dose Admin Albuterol/Ipratropium 3 amp 08/08/18 14:59 08/08/18 15:21 Duoneb - NEB 08/08/18 15:00 3 amp ONCE ONE Administration Methylprednisolone Sodium Succinate 125 mg 08/08/18 16:14 08/08/18 16:50 Solu-Medrol - IVPB 08/08/18 16:15 125 mg ONCE ONE Administration Medical Decision Making - Medical Decision Making 08/08/18 18:41 Pt endorsed to me by Dr. Chandra at 5pm shift change- receiving nebs and steroids. Also received magnesium. Reexamined s/p treatment, she is much improved. Lungs are clear, and she is in no respiratory distress. Will DC back to [place]. *DC/Admit/Observation/Transfer Diagnosis at time of Disposition: Asthma exacerbation Qualifiers: Asthma severity: unspecified severity Asthma persistence: unspecified Qualified Code(s): J45.901 - Unspecified asthma with (acute) exacerbation - Discharge Dispostion Disposition: HOME Condition at time of disposition: Stable Decision to Admit order: No - Referrals Referrals: Evonne England [Primary Care Provider] - - Patient Instructions - Post Discharge Activity
[2018-08-08 20:03] VITALS: BP 126/77; PULSE 88; TEMP 98.5
== END 2018-08-08 20:57 | disposition home or self-care (01) ==
LOC: JER 13:39
PROC: 3E0F7GC Introduction of Other Therapeutic Substance into Respiratory Tract, Via Natural or Artificial Opening (ICD-10-PCS; principal; 2018-08-08)
PROC: 3E0F7GC Introduction of Other Therapeutic Substance into Respiratory Tract, Via Natural or Artificial Opening (ICD-10-PCS; 2018-08-08)
PROC: 3E033GC Introduction of Other Therapeutic Substance into Peripheral Vein, Percutaneous Approach (ICD-10-PCS; 2018-08-08)
PROC: 3E0333Z Introduction of Anti-inflammatory into Peripheral Vein, Percutaneous Approach (ICD-10-PCS; 2018-08-08)
DX: J45.901 Unspecified asthma with (acute) exacerbation (principal); G40.802 Other epilepsy, not intractable, without status epilepticus; F79 Unspecified intellectual disabilities; Q02 Microcephaly; G80.8 Other cerebral palsy; L21.9 Seborrheic dermatitis, unspecified; L91.0 Hypertrophic scar
CPT/HCPCS: 36415; 71045-TC-FY; 80053; 84484; 85025; 87804; 94640; 96374; 96375; 99282-25

== ENCOUNTER 2018-12-22 20:39 | Inpatient (IN) | payer OTHER ==
--- NOTE | 2018-12-22 21:37 | PDOC ---
History of Present Illness - General Stated Complaint: WHEEZING Time Seen by Provider: 12/22/18 21:26 - History of Present Illness Initial Comments: 12/23/18 00:03 The patient is a 38 year old female with a history of microcephaly, seizures, CAD, developmental delay, Asthma who presents for evaluation of tachycardia and wheezing. The patient is non-verbal at baseline. Per the patient's NH, the patient was noted to be tachycardic and wheezing at her NH today prompting her presentation to the ED for further evaluation. ROS is unobtainable due to the patient's baseline mental status. Past History - Past Medical History Allergies/Adverse Reactions: Allergies Allergy/AdvReac Type Severity Reaction Status Date / Time No Known Allergies Allergy Verified 08/08/18 13:43 Home Medications: Ambulatory Orders Acetaminophen Oral Solution [Tylenol Oral Solution -] 650 mg GT Q6H PRN Baclofen 20 mg GT BID 08/08/18 Budesonide/Formeterol Fumarate [SYMBICORT 80/4.5mcg -] 1 inh IN BID 08/08/18 Budesonide/Formeterol Fumarate [SYMBICORT 80/4.5mcg -] 2 inh PO BID 08/08/18 Calcium Carbonate/Vitamin D3 [Oyster Shell 500-Vit D3 200 Pk] 1 each GT BID Clotrimazole 45 appful TD BID 08/08/18 Hydrocortisone 1% Cream [Hytone 1% Cream -] 1 applic TP BID 08/08/18 Ipratropium/Albuterol Sulfate [Iprat-Albut 0.5-3(2.5) mg/3 ml] 3 ml IH QID 08/08 Magnesium Hydrox 2400MG/30Ml [Milk of Magnesia -] 30 ml GT HS 08/08/18 Montelukast Na [Singulair -] 10 mg GT HS 08/08/18 Multivit-Min/FA/Lycopen/Lutein [Vitrum 50+ Senior Tablet] 1 each GT DAILY Phenobarbital 32.4 mg GT ASDIR 08/08/18 Phenobarbital 64.8 mg GT HS 08/08/18 Prednisone [Deltasone] 40 mg PO DAILY #10 tablet 08/08/18 Asthma: Yes Cardiac Disorders: Yes COPD: No GI Disorders: Yes (esophagitis) Seizures: Yes (epilepsy) - Surgical History Abdominal Surgery: No Appendectomy: No Cardiac Surgery: No Cholecystectomy: Yes Lung Surgery: No Neurologic Surgery: No Orthopedic Surgery: No - Immunization History Immunization Up to Date: Yes - Suicide/Smoking/Psychosocial Hx Smoking History: Never smoked Have you smoked in the past 12 months: No Information on smoking cessation initiated: No Hx Alcohol Use: No Drug/Substance Use Hx: No Substance Use Type: None Review of Systems - Review of Systems Able to Perform ROS?: No (Non-verbal) *Physical Exam - Vital Signs Last Vital Signs Temp Pulse Resp BP Pulse Ox 98.2 F 116 H 23 H 106/68 92 L 12/22/18 21:03 12/22/18 21:03 12/22/18 21:03 12/22/18 21:03 12/22/18 21:03 - Physical Exam Comments: 12/23/18 00:13 General Appearance: Nourished. No Apparent Distress HEENT: No Pharyngeal Erythema, Tonsillar Exudate, Tonsillar Erythema Neck: No Cervical Lymphadenopathy Respiratory/Chest: Lungs Clear, Normal Breath Sounds. Scant wheezing noted on exam. No Crackles, Rales, Rhonchi, Cardiovascular: Regular Rhythm, Tachycardic Rate. No Murmur, Gallops, Rubs Gastrointestinal/Abdominal: Normal Bowel Sounds, Soft. No Guarding, Rebound, Tenderness Musculoskeletal: No CVA Tenderness Extremity: Normal Capillary Refill Integumentary: Normal Color, Dry, Warm Neurologic: Non-verbal at baseline Heart Score/ECG Review #1 ECG reviewed & interpreted by me at: 00:14 12/23/18 00:14 HR 112 [place] 130 QRS 64 QTc [address] No Acute ST Changes ED Treatment Course - LABORATORY CBC & Chemistry Diagram: 12/22/18 22:45 12/22/18 22:45 Medical Decision Making - Medical Decision Making 12/23/18 00:15 The patient is a 38 year old female with a history of microcephaly, seizures, CAD, developmental delay, Asthma who presents for evaluation of tachycardia and wheezing. Differential includes but is not limited to: Sepsis, Asthma Exacerbation, Infectious, Metabolic Derangement. Given the patient's history and physical exam, we will obtain a cbc, cmp, lactate, troponin, coags, vbg, ekg , Chest plain film, blood cultures, to evaluate further. We will treat with duonebs and continue to monitor and reassess while here in the ED. 12/23/18 03:42 CBC, cmp, lactate, troponin were unremarkable. Chest plain film was difficult to interpret due to the patient's rotation and chest CT was obtained which demonstrated a possible small focus of right upper lobe pneumonia as preliminarily read by our data warehouse consultant radiologist. Given the patient's new oxygen requirement and pneumonia on CT, she will require admission for further management. We will treat with vanc and zosyn and solumedrol here in the ED. We discussed the case with the admitting team who accepted the patient for admission *DC/Admit/Observation/Transfer Diagnosis at time of Disposition: Asthma exacerbation Qualifiers: Asthma severity: unspecified severity Asthma persistence: unspecified Qualified Code(s): J45.901 - Unspecified asthma with (acute) exacerbation Pneumonia Qualifiers: Pneumonia type: due to unspecified organism Laterality: unspecified laterality Lung location: unspecified part of lung Qualified Code(s): J18.9 - Pneumonia, unspecified organism - Discharge Dispostion Condition at time of disposition: Stable Decision to Admit order: Yes - Referrals - Patient Instructions - Post Discharge Activity
[2018-12-22] MEDS ORDERED: ALBUTEROL SO4 2.5/IPRATROPIUM 0.5 INH SOL 3 ML VIAL.NEB. NEB ONE ×2 (21:49→22:38)
[2018-12-22 23:13] LABS: VENOUS PC02 41.6 mmHg (41-51); VENOUS PH 7.37 (7.31-7.41)
[2018-12-22 23:14] LABS: VENOUS PO2 26.1 mmHg (30-40)
--- NOTE | 2018-12-22 23:21 | PDOC ---
Documentation entered by Kanwal Dang SCRIBE, acting as scribe for Tarah Knowles DO. Tarah Knowles DO: This documentation has been prepared by the [place] Brenda, SCRIBE, under my direction and personally reviewed by me in its entirety. I confirm that the documentation accurately reflects all work , treatment, procedures, and medical decision making performed by me. Attending Attestation - Resident Resident Name: ShahrzadIshmael - ED Attending Attestation I have performed the following: I have examined & evaluated the patient, The case was reviewed & discussed with the resident, I agree w/resident's findings & plan, Exceptions are as noted - HPI HPI: 12/22/18 23:16 The patient is a 38 year old female, with a significant PMH of microcephaly, epilepsy, quadriplegia, scoliosis, and asthma, who presents to the emergency department [facility] from [place] with wheezing heard by staff. Staff also reported that the heart rate was elevated. History was not obtained by patient due to her being nonverbal. Allergies: NKA Past surgical history: Cholecystectomy Social history: Not reported - Physicial Exam PE: 12/22/18 21:32 Agree with resident's exam. - Medical Decision Making 12/22/18 23:20 38-year-old female with history of severe cognitive deficit, nonambulatory from a shelter facility with an episode of wheezing and increased heart rate Labs, chest x-ray and duo nebs If workup reassuring patient will be discharged back to facility, she is currently not wheezing and has been resting comfortably
[2018-12-22 23:23] LABS: BASO % 0.5 % (0-2.0); EOS % 5.8 % (0-4.5); HEMATOCRIT 48.1 % (32.4-45.2); HEMOGLOBIN 16.1 GM/dL (10.7-15.3); MCH 27.9 pg (25.7-33.7); MCHC 33.4 g/dl (32.0-36.0); MEAN CELL VOLUME 83.7 fl (80-96); MONO % 6.9 % (3.8-10.2); NEUT % 74.8 % (42.8-82.8); PLATELET COUNT 272 K/MM3 (134-434); RBC 5.75 M/mm3 (3.60-5.2); RDW 14.3 % (11.6-15.6); WHITE BLOOD COUNT 7.5 K/mm3 (4.0-10.0)
[2018-12-22 23:38] LABS: ALBUMIN 3.7 g/dl (3.4-5.0); BILIRUBIN,TOTAL 0.4 mg/dL (0.2-1); BLOOD UREA NITROGEN 9.1 mg/dL (7-18); CALCIUM 9.6 mg/dL (8.5-10.1); CREATININE 0.4 mg/dL (0.55-1.3); POTASSIUM 4.2 mmol/L (3.5-5.1); TOT PROT 8.4 g/dl (6.4-8.2)
[2018-12-22 23:42] LABS: INR 1.1 (0.83-1.09)
[2018-12-22 23:45] LABS: ACTIVATED PTT 33.4 SECONDS (25.2-36.5)
[2018-12-23] MEDS ORDERED: ALBUTEROL SO4 0.042% IH SOL 1.25 MG/3 ML VIAL.NEB NEB ONE (01:44)
[2018-12-23] MEDS ORDERED: methylPREDNISolone NA SUCC 125 MG/2 ML VIAL IVPUSH ONE (01:44)
[2018-12-23] MEDS ORDERED: VANCOMYCIN 1 GM in D5W (PRE-DOCKED) 1,000 MG/250 ML IVPB ONE (02:50)
[2018-12-23] MEDS ORDERED: PIPERACILLIN/TAZOB 3.375 GM 3.375 GM in DEXTROSE 5%-WATER - 50 ML IVPB ONE (02:50)
--- NOTE | 2018-12-23 03:47 | PN ---
Teaching Attending Note Name of Resident: Vasile Kurtz ATTENDING PHYSICIAN STATEMENT I saw and evaluated the patient. I reviewed the resident's note and discussed the case with the resident. I agree with the resident's findings and plan as documented. SUBJECTIVE: Patient is a 38 year old woman with PMH of Microcephaly, Esophagitis, Seizures, CAD, Developmental delay and Asthma who presents for evaluation of tachycardia and wheezing. The patient is non-verbal at baseline. Per the patient's NH, the patient was noted to be tachycardic and wheezing at her NH today prompting her presentation to the ER for further evaluation. Review of systems is unobtainable due to the patient's baseline mental status. Has had multiple admissions for acute asthma exacerbation and has been previously intubated. OBJECTIVE: Alert Vital Signs Period Temp Pulse Resp BP Sys/Holley Pulse Ox Last 24 Hr 98.2 F 116 23 106/68 92 HEENT: No Jaundice, eye redness or discharge, PERRLA, EOMI. Normocephalic, atraumatic. Keloid on right ear. No nasal discharge. Neck: Supple, nontender. Keloid on right side of neck. No palpable adenopathy or thyromegaly. No JVD Chest: Good effort. Wheezing and prolonged expiration. Clear to percussion. Heart: Regular. No S3, rub or murmur Abdomen: Not distended, soft, nontender and no HSM. No rebound or guarding. Normal bowel sounds. Ext: Peripheral pulses intact. No leg edema. Contracted limbs. Skin: Warm and dry. No petechiae, rash or ecchymosis. Neuro: Alert. Nonverbal. Quadriplegia. Limited exam. Psych: Appropriate mood and affect. Home Medications Medication Instructions Recorded Acetaminophen Oral Solution 650 mg GT Q6H PRN 08/08/18 [Tylenol Oral Solution -] Baclofen 20 mg GT BID 08/08/18 Budesonide/Formeterol Fumarate 1 inh IN BID 08/08/18 [SYMBICORT 80/4.5mcg -] Budesonide/Formeterol Fumarate 2 inh PO BID 08/08/18 [SYMBICORT 80/4.5mcg -] Calcium Carbonate/Vitamin D3 1 each GT BID 08/08/18 [Oyster Shell 500-Vit D3 200 Pk] Clotrimazole 45 appful TD BID 08/08/18 Hydrocortisone 1% Cream [Hytone 1% 1 applic TP BID 08/08/18 Cream -] Ipratropium/Albuterol Sulfate 3 ml IH QID 08/08/18 [Iprat-Albut 0.5-3(2.5) mg/3 ml] Magnesium Hydrox 2400MG/30Ml [Milk 30 ml GT HS 08/08/18 of Magnesia -] Montelukast Na [Singulair -] 10 mg GT HS 08/08/18 Multivit-Min/FA/Lycopen/Lutein 1 each GT DAILY 08/08/18 [Vitrum 50+ Senior Tablet] Phenobarbital 32.4 mg GT ASDIR 08/08/18 Phenobarbital 64.8 mg GT HS 08/08/18 Prednisone [Deltasone] 40 mg PO DAILY #10 tablet 08/08/18 Abnormal Lab Results 12/22/18 12/22/18 12/22/18 22:45 22:45 22:45 RBC 5.75 H Hgb 16.1 H Hct 48.1 H Eosinophils % 5.8 H INR 1.10 H POC VBG pO2 26.1 L VBG O2 Sat (Liane) 38.4 L Anion Gap Creatinine Random Glucose Total Protein 12/22/18 22:45 RBC Hgb Hct Eosinophils % INR POC VBG pO2 VBG O2 Sat (Liane) Anion Gap 7 L Creatinine 0.4 L Random Glucose 58 L Total Protein 8.4 H ASSESSMENT AND PLAN: 1. Asthma exacerbation - No obvious precipitating factor, but he may be dehydrated as evidenced by hemoconcentration. CXR shows scoliosis, elevated left hemidiaphragm but no significant infiltrate. Chest CTA did not show pulmonary embolism but a preliminary report of RUL atelectasis vs infiltrate. Patient got IV vancomycin and zosyn in the ER. He is afebrile and does not have leukocytosis - will withhold antibiotics pending official report of chest CT. Consult Pulmonary. Continue Solumedrol 40 mg q 6 hours, Duoneb, Advair and Singulair. Will get urinalysis, send sputum for culture. Monitor blood glucose and ensure adequate caloric intake. EKG is pending. Will continue comprehensive care of all her comorbid conditions. 2. DVT prophylaxis - Lovenox 40 mg SQ q 24 hours. 3. Advance directives - Full code
--- NOTE | 2018-12-23 04:42 | HP ---
CHIEF COMPLAINT: Asthma Exacerbation PCP: From [facility] HISTORY OF PRESENT ILLNESS: 38 F with PMH significant for asthma, developmental delay, non-verbal, and microcephaly who presents today with an asthma exacerbation as per her nursing aids from [facility]. The aid was able to inform us that patient was observed to be wheezing earlier in the day and was then noticed to be tachycardic upon which the decision was made to bring her to the hospital. Aid also told us that patient was not ill recently, had no fevers, no vomiting or diarrhea. Remainder of ROS was unable to be obtained due to non-verbal status of patient. ER course was notable for: (1)Patient was given duonebs and placed on 2L NC of oxygen, and given vanc/ zoysn. (2)Patient received EKG which showed sinus tachycardia, but no acute changes compared to prior EKG. (3)Patient had an x-ray done which showed poor inspiratory effort and rotation, and possibly atelectasis in right upper lobe. Chest CT was done which showed possible atelectasis or pneumonia in the right upper lobe. Recent Travel: None PAST MEDICAL HISTORY: microcephaly, quadriplegia, seizures, CAD, developmental delay, asthma, esophagitis, scoliosis PAST SURGICAL HISTORY: cholestectomy, appendectomy, G-tube placement, laurie gavin insertion Social History: Unable to obtain Family History: Unable to obtain Allergies No Known Allergies Allergy (Verified 08/08/18 13:43) HOME MEDICATIONS: Home Medications Medication Instructions Recorded Acetaminophen Oral Solution 650 mg GT Q6H PRN 08/08/18 [Tylenol Oral Solution -] Baclofen 20 mg GT BID 08/08/18 Budesonide/Formeterol Fumarate 1 inh IN BID 08/08/18 [SYMBICORT 80/4.5mcg -] Budesonide/Formeterol Fumarate 2 inh PO BID 08/08/18 [SYMBICORT 80/4.5mcg -] Calcium Carbonate/Vitamin D3 1 each GT BID 08/08/18 [Oyster Shell 500-Vit D3 200 Pk] Clotrimazole 45 appful TD BID 08/08/18 Hydrocortisone 1% Cream [Hytone 1% 1 applic TP BID 08/08/18 Cream -] Ipratropium/Albuterol Sulfate 3 ml IH QID 08/08/18 [Iprat-Albut 0.5-3(2.5) mg/3 ml] Magnesium Hydrox 2400MG/30Ml [Milk 30 ml GT HS 08/08/18 of Magnesia -] Montelukast Na [Singulair -] 10 mg GT HS 08/08/18 Multivit-Min/FA/Lycopen/Lutein 1 each GT DAILY 08/08/18 [Vitrum 50+ Senior Tablet] Phenobarbital 32.4 mg GT ASDIR 08/08/18 Phenobarbital 64.8 mg GT HS 08/08/18 Prednisone [Deltasone] 40 mg PO DAILY #10 tablet 08/08/18 REVIEW OF SYSTEMS Unable to obtain full ROS due to patients non-verbal status. PHYSICAL EXAMINATION Vital Signs - 24 hr 12/22/18 21:03 Temperature 98.2 F Pulse Rate 116 H Respiratory 23 H Rate Blood Pressure 106/68 O2 Sat by Pulse 92 L Oximetry (%) GENERAL: Awake, alert, in no acute distress. HEAD: Microcephaly EYES: Extraocular movements intact, sclera anicteric, conjunctiva clear. EARS, NOSE, THROAT: Ears normal, nares patent, oropharynx clear without exudates. Moist mucous membranes. NECK: Keloids on both left and right sides of neck, wrapping around from front to back. LUNGS: Left lower lobe has mild expiratory wheeze. Right lung clear with good air movement. HEART: Tachycardic with regular rhythm, normal S1 and S2 without murmur, rub or gallop. ABDOMEN: Soft, nontender, not distended, normoactive bowel sounds, no guarding, no rebound, no masses. MUSCULOSKELETAL: Contracted in all extremities, and scoliosis back. UPPER EXTREMITIES: 2+ pulses, warm, well-perfused. No cyanosis. No clubbing. No peripheral edema. LOWER EXTREMITIES: 2+ pulses, warm, well-perfused. No calf tenderness. No peripheral edema. . Laboratory Results - last 24 hr 12/22/18 12/22/18 12/22/18 22:45 22:45 22:45 WBC 7.5 RBC 5.75 H Hgb 16.1 H Hct 48.1 H MCV 83.7 MCH 27.9 MCHC 33.4 RDW 14.3 Plt Count 272 MPV 9.0 Absolute Neuts (auto) 5.6 Neutrophils % 74.8 Lymphocytes % 12.0 Monocytes % 6.9 Eosinophils % 5.8 H Basophils % 0.5 Nucleated RBC % 0 PT with INR 13.00 INR 1.10 H PTT (Actin FS) 33.4 VBG pH 7.37 POC VBG pCO2 41.6 POC VBG pO2 26.1 L VBG HCO3 23.6 VBG O2 Sat (Liane) 38.4 L VBG Base Excess -1.1 Sodium Potassium Chloride Carbon Dioxide Anion Gap BUN Creatinine Est GFR (CKD-EPI)AfAm Est GFR (CKD-EPI)NonAf Random Glucose Lactic Acid Calcium Total Bilirubin AST ALT Alkaline Phosphatase Troponin I Total Protein Albumin Serum , Qual 12/22/18 12/22/18 12/22/18 22:45 22:45 22:45 WBC RBC Hgb Hct MCV MCH MCHC RDW Plt Count MPV Absolute Neuts (auto) Neutrophils % Lymphocytes % Monocytes % Eosinophils % Basophils % Nucleated RBC % PT with INR INR PTT (Actin FS) VBG pH POC VBG pCO2 POC VBG pO2 VBG HCO3 VBG O2 Sat (Liane) VBG Base Excess Sodium 137 Potassium 4.2 Chloride 105 Carbon Dioxide 25 Anion Gap 7 L BUN 9.1 Creatinine 0.4 L Est GFR (CKD-EPI)AfAm 153.14 Est GFR (CKD-EPI)NonAf 132.13 Random Glucose 58 L Lactic Acid 0.9 Calcium 9.6 Total Bilirubin 0.4 AST 22 ALT 32 Alkaline Phosphatase 100 Troponin I < 0.02 Total Protein 8.4 H Albumin 3.7 Serum , Qual 12/22/18 22:45 WBC RBC Hgb Hct MCV MCH MCHC RDW Plt Count MPV Absolute Neuts (auto) Neutrophils % Lymphocytes % Monocytes % Eosinophils % Basophils % Nucleated RBC % PT with INR INR PTT (Actin FS) VBG pH POC VBG pCO2 POC VBG pO2 VBG HCO3 VBG O2 Sat (Liane) VBG Base Excess Sodium Potassium Chloride Carbon Dioxide Anion Gap BUN Creatinine Est GFR (CKD-EPI)AfAm Est GFR (CKD-EPI)NonAf Random Glucose Lactic Acid Calcium Total Bilirubin AST ALT Alkaline Phosphatase Troponin I Total Protein Albumin Serum , Qual Negative ASSESSMENT/PLAN: 38 year old female with PMH of asthma, microcephaly, seizures, developmental delay, and quadriplegia who presents today with an asthma exacerbation. Asthma: Symbicort Advair Singulair IV methylprednisolone 40 mg Q6H IV NS @42 ml/hr pulm consult for atelectasis vs pneumonia DVT Prophylaxis: Lovenox 40 mg SQ QDaily F: NS @ 42 ml/hr E: Monitor BMP N: Feeds as per [facility] ([phone]) Problem List - Problem (1) Asthma exacerbation Code(s): J45.901 - UNSPECIFIED ASTHMA WITH (ACUTE) EXACERBATION Qualifiers: Asthma severity: unspecified severity Asthma persistence: unspecified Qualified Code(s): J45.901 - Unspecified asthma with (acute) exacerbation Visit type - Emergency Visit Emergency Visit: Yes ED Registration Date: 12/23/18 Care time: The patient presented to the Emergency Department on the above date and was hospitalized for further evaluation of their emergent condition. - New Patient This patient is new to me today: Yes Date on this admission: 12/23/18 - Critical Care Critical Care patient: No ATTENDING PHYSICIAN STATEMENT I saw and evaluated the patient. I reviewed the resident's note and discussed the case with the resident. I agree with the resident's findings and plan as documented. SUBJECTIVE: OBJECTIVE: ASSESSMENT AND PLAN:
[2018-12-23] MEDS ORDERED: ALBUTEROL SO4 0.083% IH SOL 2.5 MG/3 ML VIAL.NEB. NEB ONE (05:29)
[2018-12-23] MEDS ORDERED: methylPREDNISolone NA SUCC 125 MG/2 ML VIAL ONE (05:29)
[2018-12-23] MEDS ORDERED: VANCOMYCIN 1 GRAM (PRE-DOCKED) 1,000 MG/250 ML BAG IVPB ONE (05:29)
[2018-12-23] MEDS: SODIUM CHLORIDE 1,000 ML IV SCH (05:57)
--- NOTE | 2018-12-23 08:32 | EKG ---
Test Reason : Blood Pressure : / mmHG Vent. Rate : 112 BPM Atrial Rate : 112 BPM P-R Int : 130 ms QRS Dur : 064 ms QT Int : 324 ms P-R-T Axes : 062 072 058 degrees QTc Int : 442 ms SINUS TACHYCARDIA SEPTAL INFARCT , AGE UNDETERMINED ABNORMAL ECG WHEN COMPARED WITH ECG OF 01-APR-2018 00:28, SEPTAL INFARCT IS NOW PRESENT Confirmed by NUNO GOMES, CR ([id number]) on 12/23/2018 8:32:18 AM Referred By: Confirmed By:CR REINA MD
--- NOTE | 2018-12-23 09:02 | PN ---
Physical Exam: SUBJECTIVE: Patient seen and examined. On venturimask, appears comfortable. Per aide by bedside, pt desats when off mask. Uses mask in facility PRN only. Per aide pt recently received treatment. OBJECTIVE: Vital Signs Period Temp Pulse Resp BP Sys/Holley Pulse Ox Last 24 Hr 98.2 F-99.8 F 74-116 19-23 86-106/52-68 92-100 Vital Signs Temp 99.8 F H 12/23/18 06:03 Pulse 78 12/23/18 06:03 Resp 20 12/23/18 06:03 BP 92/52 L 12/23/18 06:03 Pulse Ox 100 12/23/18 06:03 Intake & Output 12/22/18 12/23/18 12/23/18 23:59 11:59 23:59 Intake Total 240 Balance 240 Weight 40.823 kg Intake: Oral 240 Other: Voiding Method Toilet Incontinent Height 0 cm Body Mass Index (BMI) 0.0 Weight Measurement Method Estimated by Staff GENERAL: The patient is awake, on venturi mask, in no obvious resp. distress HEAD/NECK: kelloids over neck, chest. EYES: PERRL, ENT: Venturi mask LUNGS: reduced breath sounds, no wheezes, no crackles, no accessory muscle use. HEART: S1, S2 ABDOMEN: GT in place EXTREMITIES: Contracted extremities. RLE>LLE NEUROLOGICAL: Pt with hx of MR, unable to engage CBC, BMP 12/23/18 09:13 12/23/18 09:13 Laboratory Results - last 24 hr 12/22/18 12/22/18 12/22/18 22:45 22:45 22:45 WBC 7.5 RBC 5.75 H Hgb 16.1 H Hct 48.1 H MCV 83.7 MCH 27.9 MCHC 33.4 RDW 14.3 Plt Count 272 MPV 9.0 Absolute Neuts (auto) 5.6 Neutrophils % 74.8 Lymphocytes % 12.0 Monocytes % 6.9 Eosinophils % 5.8 H Basophils % 0.5 Nucleated RBC % 0 PT with INR 13.00 INR 1.10 H PTT (Actin FS) 33.4 VBG pH 7.37 POC VBG pCO2 41.6 POC VBG pO2 26.1 L VBG HCO3 23.6 VBG O2 Sat (Liane) 38.4 L VBG Base Excess -1.1 Sodium Potassium Chloride Carbon Dioxide Anion Gap BUN Creatinine Est GFR (CKD-EPI)AfAm Est GFR (CKD-EPI)NonAf Random Glucose Lactic Acid Calcium Total Bilirubin AST ALT Alkaline Phosphatase Troponin I Total Protein Albumin Serum , Qual 12/22/18 12/22/18 12/22/18 22:45 22:45 22:45 WBC RBC Hgb Hct MCV MCH MCHC RDW Plt Count MPV Absolute Neuts (auto) Neutrophils % Lymphocytes % Monocytes % Eosinophils % Basophils % Nucleated RBC % PT with INR INR PTT (Actin FS) VBG pH POC VBG pCO2 POC VBG pO2 VBG HCO3 VBG O2 Sat (Liane) VBG Base Excess Sodium 137 Potassium 4.2 Chloride 105 Carbon Dioxide 25 Anion Gap 7 L BUN 9.1 Creatinine 0.4 L Est GFR (CKD-EPI)AfAm 153.14 Est GFR (CKD-EPI)NonAf 132.13 Random Glucose 58 L Lactic Acid 0.9 Calcium 9.6 Total Bilirubin 0.4 AST 22 ALT 32 Alkaline Phosphatase 100 Troponin I < 0.02 Total Protein 8.4 H Albumin 3.7 Serum , Qual 12/22/18 22:45 WBC RBC Hgb Hct MCV MCH MCHC RDW Plt Count MPV Absolute Neuts (auto) Neutrophils % Lymphocytes % Monocytes % Eosinophils % Basophils % Nucleated RBC % PT with INR INR PTT (Actin FS) VBG pH POC VBG pCO2 POC VBG pO2 VBG HCO3 VBG O2 Sat (Liane) VBG Base Excess Sodium Potassium Chloride Carbon Dioxide Anion Gap BUN Creatinine Est GFR (CKD-EPI)AfAm Est GFR (CKD-EPI)NonAf Random Glucose Lactic Acid Calcium Total Bilirubin AST ALT Alkaline Phosphatase Troponin I Total Protein Albumin Serum , Qual Negative Active Medications Generic Name Dose Route Start Last Admin Trade Name Freq PRN Reason Stop Dose Admin Budesonide/Formoterol Fumarate 2 puff 12/23/18 10:00 Symbicort 80/4.5mcg - IH BID JAMIL Enoxaparin Sodium 40 mg 12/23/18 10:00 Lovenox - SQ DAILY JAMIL Sodium Chloride 1,000 mls @ 42 mls/hr 12/23/18 05:45 12/23/18 05:57 Normal Saline - IV 42 mls/hr ASDIR JAMIL Administration Methylprednisolone Sodium Succinate 40 mg 12/23/18 04:45 Solu-Medrol - IVPUSH Q6H-IV JAMIL Montelukast Sodium 10 mg 12/23/18 22:00 Singulair - PO HS JAMIL Pantoprazole Sodium 40 mg 12/23/18 10:00 Protonix - PO DAILY JAMIL Fluticasone/Salmeterol 1 puff 12/23/18 10:00 Advair 100mcg/50mcg - IH BID JAMIL Ambulatory Orders Acetaminophen Oral Solution [Tylenol Oral Solution -] 650 mg GT Q6H PRN Baclofen 20 mg GT BID 08/08/18 Budesonide/Formeterol Fumarate [SYMBICORT 80/4.5mcg -] 2 inh PO BID 08/08/18 Calcium Carbonate/Vitamin D3 [Oyster Shell 500-Vit D3 200 Pk] 1 each GT BID Clotrimazole 45 appful TD BID 08/08/18 Hydrocortisone 1% Cream [Hytone 1% Cream -] 1 applic TP BID 08/08/18 Ipratropium/Albuterol Sulfate [Iprat-Albut 0.5-3(2.5) mg/3 ml] 3 ml IH QID 08/08 Magnesium Hydrox 2400MG/30Ml [Milk of Magnesia -] 30 ml GT HS 08/08/18 Montelukast Na [Singulair -] 10 mg GT HS 08/08/18 Multivit-Min/FA/Lycopen/Lutein [Vitrum 50+ Senior Tablet] 1 each GT DAILY Phenobarbital 32.4 mg GT ASDIR 08/08/18 Phenobarbital 64.8 mg GT HS 08/08/18 Current Medications Budesonide/Formoterol Fumarate (Symbicort 80/4.5mcg -) 2 puff IH BID JAMIL Enoxaparin Sodium (Lovenox -) 40 mg SQ DAILY JAMIL Sodium Chloride (Normal Saline -) 1,000 mls @ 42 mls/hr IV ASDIR JAMIL Last Admin: 12/23/18 05:57 Dose: 42 mls/hr Methylprednisolone Sodium Succinate (Solu-Medrol -) 40 mg IVPUSH Q6H-IV JAMIL Montelukast Sodium (Singulair -) 10 mg PO HS AJMIL Pantoprazole Sodium (Protonix -) 40 mg PO DAILY JAMIL Fluticasone/Salmeterol (Advair 100mcg/50mcg -) 1 puff IH BID JAMIL ASSESSMENT/PLAN: 38 year old female with PMH of asthma, microcephaly, seizures, developmental delay, CAD, esophagitis, scoliosis, and quadriplegia who presents today with an asthma exacerbation. Asthma: Pt reported to have wheezes at [place] Also had increased oxygen needs VBG in ED with hypoxia, abg stat Pt on venturimask Symbicort Advair Singulair IV methylprednisolone 40 mg Q6H IV changed to PO steroid NS @42 ml/hr hold iv fluids, restat GT feeds pulm consult for atelectasis vs pneumonia Pt recieved vanc/zosyn in ED- hold AB Kelloid on skin Continue topical creams DVT Prophylaxis: Lovenox 40 mg SQ QDaily Protonix PO F: Stop fluid, GT feeds E: Monitor BMP Visit type - Emergency Visit Emergency Visit: Yes ED Registration Date: 12/23/18 Care time: The patient presented to the Emergency Department on the above date and was hospitalized for further evaluation of their emergent condition. - New Patient This patient is new to me today: Yes Date on this admission: 12/23/18 - Critical Care Critical Care patient: No - Discharge Referral Referred to [facility] Med P.C[facility] No ATTENDING PHYSICIAN STATEMENT I saw and evaluated the patient. I reviewed the resident's note and discussed the case with the resident. I agree with the resident's findings and plan as documented. SUBJECTIVE: OBJECTIVE: ASSESSMENT AND PLAN:
[2018-12-23 09:48] LABS: BASO % 0.4 % (0-2.0); EOS % 0.5 % (0-4.5); HEMATOCRIT 44.2 % (32.4-45.2); HEMOGLOBIN 14.7 GM/dL (10.7-15.3); LYMPH % 6.3 % (8-40); MCHC 33.3 g/dl (32.0-36.0); MEAN CELL VOLUME 83.9 fl (80-96); MEAN PLT VOLUME 9.1 fl (7.5-11.1); MONO % 1.4 % (3.8-10.2); NEUT % 91.4 % (42.8-82.8); PLATELET COUNT 251 K/MM3 (134-434); RBC 5.26 M/mm3 (3.60-5.2); RDW 14.4 % (11.6-15.6); WHITE BLOOD COUNT 5.4 K/mm3 (4.0-10.0)
[2018-12-23] MEDS ORDERED: PANTOPRAZOLE 40 MG TABLET (FP) PO SCH (10:00)
[2018-12-23] MEDS ORDERED: FLUTICASONE/SALMETEROL 100 MCG/50 MCG DISKUS IH SCH (10:00)
[2018-12-23] MEDS ORDERED: BUDESONIDE/FORMETEROL FUMARATE 80/4.5 mcg INHALER IH SCH ×2 (10:00→22:00)
[2018-12-23 10:26] LABS: ALBUMIN 3.3 g/dl (3.4-5.0); BILIRUBIN,TOTAL 0.4 mg/dL (0.2-1); BLOOD UREA NITROGEN 10.4 mg/dL (7-18); CREATININE 0.3 mg/dL (0.55-1.3); MAGNESIUM 2.5 mg/dL (1.8-2.4); PHOSPHOROUS 3.4 mg/dL (2.5-4.9); POTASSIUM 4.3 mmol/L (3.5-5.1); TOT PROT 7.7 g/dl (6.4-8.2)
[2018-12-23] MEDS: methylPREDNISolone NA SUCC 40 MG/1 ML VIAL IVPUSH SCH (10:56)
[2018-12-23] MEDS: ENOXAPARIN NA (PORCINE) 40 MG/0.4 ML DISP.SYRIN SQ SCH (11:42)
[2018-12-23] MEDS: PANTOPRAZOLE 40 MG TABLET (FP) PO SCH (11:42)
--- NOTE | 2018-12-23 13:46 | CON.PULM ---
Consult Consult Specialty:: PULMONARY Referred by:: Dr Mariee Reason for Consultation:: asthma - History of Present Illness Chief Complaint: shortness of breath History of Present Illness: 38yo female with h/o profound mental retardation, microcephaly, functional quadriplegia, seizure disorder, asthma, scoliosis who was transferred from [place] for shortness of breath and wheezing. Pt unable to provide further history at this time. Noted to be tachycardic, CTA done without evidence of PE but with RUL atelectasis. No fevers recorded. - History Source History Provided By: Medical Record Limitations to Obtaining History: Clinical Condition - Past Medical History [employer]: Yes: Seizure, Other (microcephaly, congental quadraplegia ) Pulmonary: Yes: Asthma, Pneumonia (with chest tube insertion for right hydrothorax) Dermatology: Yes: Other (keloid-right neck with recurrent infections) - Past Surgical History Past Surgical History: Yes: Appendectomy, Cholecystectomy - Alcohol/Substance Use Hx Alcohol Use: No - Smoking History Smoking history: Never smoked Have you smoked in the past 12 months: No Home Medications - Allergies Allergies/Adverse Reactions: Allergies Allergy/AdvReac Type Severity Reaction Status Date / Time No Known Allergies Allergy Verified 12/23/18 05:54 - Home Medications Home Medications: Ambulatory Orders Acetaminophen Oral Solution [Tylenol Oral Solution -] 650 mg GT Q6H PRN Baclofen 20 mg GT BID 08/08/18 Budesonide/Formeterol Fumarate [SYMBICORT 80/4.5mcg -] 1 inh IN BID 08/08/18 Budesonide/Formeterol Fumarate [SYMBICORT 80/4.5mcg -] 2 inh PO BID 08/08/18 Calcium Carbonate/Vitamin D3 [Oyster Shell 500-Vit D3 200 Pk] 1 each GT BID Clotrimazole 45 appful TD BID 08/08/18 Hydrocortisone 1% Cream [Hytone 1% Cream -] 1 applic TP BID 08/08/18 Ipratropium/Albuterol Sulfate [Iprat-Albut 0.5-3(2.5) mg/3 ml] 3 ml IH QID 08/08 Magnesium Hydrox 2400MG/30Ml [Milk of Magnesia -] 30 ml GT HS 08/08/18 Montelukast Na [Singulair -] 10 mg GT HS 08/08/18 Multivit-Min/FA/Lycopen/Lutein [Vitrum 50+ Senior Tablet] 1 each GT DAILY Phenobarbital 32.4 mg GT ASDIR 08/08/18 Phenobarbital 64.8 mg GT HS 08/08/18 Prednisone [Deltasone] 40 mg PO DAILY #10 tablet 08/08/18 Review of Systems Unable to obtain ROS, reason: pt nonverbal Physical Exam Vital Sings: Vital Signs Temperature 99.8 F H 12/23/18 06:03 Pulse Rate 78 12/23/18 06:03 Respiratory Rate 20 12/23/18 06:03 Blood Pressure 92/52 L 12/23/18 06:03 O2 Sat by Pulse Oximetry (%) 100 12/23/18 06:03 Constitutional: Yes: Mild Distress (mildly tachypneic at rest) Eyes: Yes: Conjunctiva Clear, EOM Intact HENT: Yes: Atraumatic, Normocephalic Neck: Yes: Supple, Trachea Midline Cardiovascular: Yes: Regular Rate and Rhythm Respiratory: Yes: Rhonchi (scattered) ...Clubbing: No Gastrointestinal: Yes: Normal Bowel Sounds, Soft. No: Tenderness Edema: No Neurological: Yes: Alert Labs: CBC, BMP 12/23/18 09:13 12/23/18 09:13 Imaging - Results Chest X-ray: Report Reviewed, Image Reviewed Cat Scan: Report Reviewed, Image Reviewed (severe scoliosis, RUL atelectasis) Problem List - Problems (1) Asthma exacerbation Code(s): J45.901 - UNSPECIFIED ASTHMA WITH (ACUTE) EXACERBATION Qualifiers: Asthma severity: unspecified severity Asthma persistence: unspecified Qualified Code(s): J45.901 - Unspecified asthma with (acute) exacerbation (2) Seizure disorder Code(s): G40.909 - EPILEPSY, UNSP, NOT INTRACTABLE, WITHOUT STATUS EPILEPTICUS Assessment/Plan Acute Asthma Exacerbation Atelectasis Severe Scoliosis/Restrictive Lung Disease Mental Retardation Functional Quadriplegia Seizure Disorder - unable to obtain IV access per nursing, will give prednisone BID - inhaled bronchodilators standing and PRN - short course of antibiotics, can d/c if cultures negative - O2 to keep SpO2 >90% - singulair - aspiration precautions - DVT prophylaxis Thank you for this consult Red Campos MD
[2018-12-23] MEDS ORDERED: ALBUTEROL SO4 0.083% IH SOL 2.5 MG/3 ML VIAL.NEB. NEB PRN (13:50)
[2018-12-23 15:21] LABS: ARTERIAL BLD GAS O2 SATURATION 89.7 % (95-98); ARTERIAL BLOOD GAS PO2 58.7 mmHg (80-105); ARTERIAL BLOOD GAS pH 7.43 (7.35-7.45)
[2018-12-23 15:22] LABS: ALLENS TEST POSITIVE; ARTERIAL BLOOD GAS BASE EXCESS -3.7 meq/l (-2-2)
[2018-12-23] MEDS: ALBUTEROL SO4 2.5/IPRATROPIUM 0.5 INH SOL 3 ML VIAL.NEB. NEB SCH ×2 (16:03→20:53)
--- NOTE | 2018-12-23 19:17 | PN ---
Teaching Attending Note Name of Resident: Shira March ATTENDING PHYSICIAN STATEMENT I saw and evaluated the patient. I reviewed the resident's note and discussed the case with the resident. I agree with the resident's findings and plan as documented. SUBJECTIVE: unable to obtain OBJECTIVE: Last Vital Signs Temp Pulse Resp BP Pulse Ox 36.6 C 116 H 20 118/71 100 12/23/18 16:30 12/23/18 16:30 12/23/18 16:30 12/23/18 16:30 12/23/18 06:03 Gen: nad HEENT: keloids noted on neck Pulm: ctab w/o w/r/r CV: rrr w/o m/r/g Abd: +bs, s/nt/nd Ext: no c/c/e CBC, BMP 12/23/18 09:13 12/23/18 09:13 ASSESSMENT AND PLAN: Problem List - Problems (1) Asthma exacerbation Assessment/Plan: -appreciate pulmonary assistance -continue oxygen support -agree with prednisone bid -continue symbicort, duonebs, and singulair -monitor for improvement -low suspicion for pneumonia currently, monitor off antibiotics Code(s): J45.901 - UNSPECIFIED ASTHMA WITH (ACUTE) EXACERBATION Qualifiers: Asthma severity: moderate Asthma persistence: persistent Qualified Code(s ): J45.41 - Moderate persistent asthma with (acute) exacerbation (2) History of keloid of skin Assessment/Plan: -noted on exam Code(s): Z87.2 - PERSONAL HISTORY OF DISEASES OF THE SKIN, SUBCU (3) Hypoxia Assessment/Plan: -continue oxygen support Code(s): R09.02 - HYPOXEMIA (4) Seizure disorder Assessment/Plan: -restart phenobarbital and baclofen Code(s): G40.909 - EPILEPSY, UNSP, NOT INTRACTABLE, WITHOUT STATUS EPILEPTICUS
[2018-12-23 19:55] VITALS: BMI 24.3
[2018-12-23] MEDS ORDERED: BACLOFEN 10 MG TABLET (FP) GT SCH (22:00)
[2018-12-23] MEDS ORDERED: MONTELUKAST NA 10 MG TABLET PO SCH (22:00)
[2018-12-23] MEDS: BUDESONIDE/FORMETEROL FUMARATE 80/4.5 mcg INHALER IH SCH (22:40)
[2018-12-23] MEDS: predniSONE 20 MG TABLET (UD) PO SCH (22:46)
[2018-12-23] MEDS ORDERED: ACETAMINOPHEN 650 MG/20.3 ML ORAL SOLUTION (CUPS) GT PRN (23:07)
[2018-12-23] MEDS: BACLOFEN 10 MG TABLET (FP) GT SCH (23:15)
[2018-12-23] MEDS: PHENobarbital 30 MG TABLET GT SCH ×2 (23:16)
[2018-12-24] MEDS ORDERED: PT OWN MED DRAWER 7, Y5N ONE (07:33)
[2018-12-24] MEDS: ALBUTEROL SO4 2.5/IPRATROPIUM 0.5 INH SOL 3 ML VIAL.NEB. NEB SCH ×4 (07:55→20:10)
[2018-12-24 08:11] LABS: BASO % 0.4 % (0-2.0); EOS % 0.1 % (0-4.5); HEMATOCRIT 42.9 % (32.4-45.2); HEMOGLOBIN 14.3 GM/dL (10.7-15.3); LYMPH % 14.9 % (8-40); MCHC 33.3 g/dl (32.0-36.0); MEAN CELL VOLUME 83.9 fl (80-96); MEAN PLT VOLUME 9.1 fl (7.5-11.1); MONO % 6.5 % (3.8-10.2); NEUT % 78.1 % (42.8-82.8); PLATELET COUNT 262 K/MM3 (134-434); RBC 5.12 M/mm3 (3.60-5.2); RDW 14.8 % (11.6-15.6); WHITE BLOOD COUNT 8.2 K/mm3 (4.0-10.0)
[2018-12-24 08:30] LABS: ALBUMIN 3.3 g/dl (3.4-5.0); BILIRUBIN,TOTAL 0.3 mg/dL (0.2-1); BLOOD UREA NITROGEN 17.6 mg/dL (7-18); CALCIUM 9.1 mg/dL (8.5-10.1); CREATININE 0.4 mg/dL (0.55-1.3); MAGNESIUM 2.4 mg/dL (1.8-2.4); PHOSPHOROUS 4.2 mg/dL (2.5-4.9); TOT PROT 7.3 g/dl (6.4-8.2)
--- NOTE | 2018-12-24 09:24 | PN ---
Physical Exam: SUBJECTIVE: Patient seen and examined. Pt in no obvious distress, on nasal cannular. OBJECTIVE: Vital Signs Period Temp Pulse Resp BP Sys/Holley Pulse Ox Last 24 Hr 97.2 F-98.5 F 88-126 18-22 102-127/62-72 GENERAL: The patient is awake, alert, in no acute distress. NECK: Kelloids scattered LUNGS: Breath sounds equal, clear to auscultation bilaterally, no wheezes HEART: S1, S2 . ABDOMEN: Soft, L GT in place, kelloids, EXTREMITIES: deformed and contracted NEUROLOGICAL: Awake, CBC, BMP 12/24/18 07:20 12/24/18 07:20 ABG Results ABG pH 7.46 (7.35-7.45) H 12/24/18 12:05 ABG pCO2 at Pt Temp 29.2 mmHg (35-45) L 12/24/18 12:05 ABG pO2 at Pt Temp 86.1 mmHg (80-105) 12/24/18 12:05 ABG HCO3 20.5 mmol/L (22-27) L 12/24/18 12:05 ABG O2 Sat (Measured) 96.6 % (95-98) 12/24/18 12:05 ABG O2 Content 19.3 % vol (15-22) 12/24/18 12:05 ABG Base Excess -1.7 meq/l (-2-2) 12/24/18 12:05 Laboratory Results - last 24 hr 12/23/18 12/23/18 12/23/18 09:13 09:13 15:10 WBC 5.4 RBC 5.26 H Hgb 14.7 Hct 44.2 MCV 83.9 MCH 28.0 MCHC 33.3 RDW 14.4 Plt Count 251 MPV 9.1 Absolute Neuts (auto) 4.9 Total Counted 100 Neutrophils % 91.4 H D Neutrophils % (Manual) 90.0 H Band Neutrophils % 6.0 Lymphocytes % 6.3 L D Lymphocytes % (Manual) 3.0 L Monocytes % 1.4 L Monocytes % (Manual) 1 L Eosinophils % 0.5 D Basophils % 0.4 Nucleated RBC % 0 Anticoagulation Therapy No Result Required. Puncture Site Right radial ABG pH 7.43 ABG pCO2 at Pt Temp 28.0 L ABG pO2 at Pt Temp 58.7 L ABG HCO3 18.6 L ABG O2 Sat (Measured) 89.7 L ABG O2 Content 18.1 ABG Base Excess -3.7 L Don Test Positive O2 Delivery Device No Result Required. Oxygen Flow Rate Yes Vent Mode No Result Required. Vent Rate No Result Required. Mechanical Rate No Result Required. Pressure Support Vent No Result Required. Sodium 138 Potassium 4.3 Chloride 106 Carbon Dioxide 20 L Anion Gap 12 BUN 10.4 Creatinine 0.3 L Est GFR (CKD-EPI)AfAm 168.34 Est GFR (CKD-EPI)NonAf 145.24 Random Glucose 83 Calcium 9.0 Phosphorus 3.4 Magnesium 2.5 H Total Bilirubin 0.4 AST 18 ALT 29 Alkaline Phosphatase 91 Total Protein 7.7 Albumin 3.3 L 12/24/18 12/24/18 07:20 07:20 WBC 8.2 RBC 5.12 Hgb 14.3 Hct 42.9 MCV 83.9 MCH 28.0 MCHC 33.3 RDW 14.8 Plt Count 262 MPV 9.1 Absolute Neuts (auto) 6.4 Total Counted Neutrophils % 78.1 Neutrophils % (Manual) Band Neutrophils % Lymphocytes % 14.9 D Lymphocytes % (Manual) Monocytes % 6.5 D Monocytes % (Manual) Eosinophils % 0.1 Basophils % 0.4 Nucleated RBC % 0 Anticoagulation Therapy Puncture Site ABG pH ABG pCO2 at Pt Temp ABG pO2 at Pt Temp ABG HCO3 ABG O2 Sat (Measured) ABG O2 Content ABG Base Excess Don Test O2 Delivery Device Oxygen Flow Rate Vent Mode Vent Rate Mechanical Rate Pressure Support Vent Sodium 140 Potassium 4.0 Chloride 109 H Carbon Dioxide 19 L Anion Gap 12 BUN 17.6 Creatinine 0.4 L Est GFR (CKD-EPI)AfAm 153.14 Est GFR (CKD-EPI)NonAf 132.13 Random Glucose 89 Calcium 9.1 Phosphorus 4.2 Magnesium 2.4 Total Bilirubin 0.3 AST 20 ALT 29 Alkaline Phosphatase 85 Total Protein 7.3 Albumin 3.3 L Active Medications Generic Name Dose Route Start Last Admin Trade Name Freq PRN Reason Stop Dose Admin Acetaminophen 650 mg 12/23/18 23:07 Tylenol Oral Solution - GT Q6H PRN PAIN Albuterol Sulfate 1 amp 12/23/18 13:50 Ventolin 0.083% Nebulizer Soln - NEB Q4H PRN SHORT OF BREATH/WHEEZING Albuterol/Ipratropium 1 amp 12/23/18 16:00 12/24/18 07:55 Duoneb - NEB 1 amp RQID JAMIL Administration Baclofen 20 mg 12/23/18 23:00 12/23/18 23:15 Lioresal - GT 20 mg BID JAMIL Administration Budesonide/Formoterol Fumarate 2 puff 12/23/18 23:00 12/23/18 22:40 Symbicort 80/4.5mcg - IH 2 puff BID JAMIL Administration Calcium Carbonate/Cholecalciferol 1 tab 12/24/18 10:00 Os-Del 500+D - GT BID JAMIL Clotrimazole 1 applic 12/24/18 10:00 Gyne-Lotrimin - VG BID [facility] Enoxaparin Sodium 40 mg 12/23/18 10:00 12/23/18 11:42 Lovenox - SQ 40 mg DAILY JAMIL Administration Hydrocortisone 1 applic 12/24/18 10:00 Hytone 1% Cream - TP BID [facility] Sodium Chloride 1,000 mls @ 42 mls/hr 12/23/18 05:45 12/23/18 05:57 Normal Saline - IV 42 mls/hr ASDIR [facility] Administration Magnesium Hydroxide 30 ml 12/24/18 22:00 Milk Of Magnesia - PO HS JAMIL Montelukast Sodium 10 mg 12/24/18 22:00 Singulair - GT HS JAMIL Pantoprazole Sodium 40 mg 12/23/18 10:00 12/23/18 11:42 Protonix - PO Not Given DAILY [facility] Phenobarbital 30 mg 12/23/18 23:15 12/23/18 23:16 Phenobarbital - GT 30 mg DAILY@2000 JAMIL Administration Phenobarbital 60 mg 12/23/18 23:15 12/23/18 23:16 Phenobarbital - GT 60 mg HS JAMIL Administration Prednisone 40 mg 12/23/18 22:00 12/23/18 22:46 Deltasone - PO 40 mg BID JAMIL Administration Current Medications Acetaminophen (Tylenol Oral Solution -) 650 mg GT Q6H PRN PRN Reason: PAIN Albuterol Sulfate (Ventolin 0.083% Nebulizer Soln -) 1 amp NEB Q4H PRN PRN Reason: SHORT OF BREATH/WHEEZING Albuterol/Ipratropium (Duoneb -) 1 amp NEB RQID JAMIL Last Admin: 12/24/18 16:12 Dose: 1 amp Baclofen (Lioresal -) 20 mg GT BID [facility] Last Admin: 12/24/18 21:07 Dose: 20 mg Budesonide/Formoterol Fumarate (Symbicort 80/4.5mcg -) 2 puff IH BID [facility] Last Admin: 12/24/18 21:13 Dose: Not Given Calcium Carbonate/Cholecalciferol (Os-Del 500+D -) 1 tab GT BID [facility] Last Admin: 12/24/18 21:08 Dose: 1 tab Clotrimazole (Gyne-Lotrimin -) 1 applic VG BID [facility] Last Admin: 12/24/18 21:09 Dose: 1 applic Enoxaparin Sodium (Lovenox -) 40 mg SQ DAILY [facility] Last Admin: 12/24/18 10:20 Dose: 40 mg Hydrocortisone (Hytone 1% Cream -) 1 applic TP BID [facility] Last Admin: 12/24/18 21:09 Dose: 1 applic Sodium Chloride (Normal Saline -) 1,000 mls @ 42 mls/hr IV ASDIR [facility] Last Admin: 12/24/18 11:00 Dose: Not Given Magnesium Hydroxide (Milk Of Magnesia -) 30 ml PO HS [facility] Last Admin: 12/24/18 21:07 Dose: 30 ml Montelukast Sodium (Singulair -) 10 mg GT HS [facility] Last Admin: 12/24/18 21:07 Dose: 10 mg Pantoprazole Sodium (Protonix -) 40 mg PO DAILY [facility] Last Admin: 12/24/18 10:17 Dose: 40 mg Phenobarbital (Phenobarbital -) 30 mg GT DAILY@2000 [facility] Last Admin: 12/24/18 20:39 Dose: 30 mg Phenobarbital (Phenobarbital -) 60 mg GT HS [facility] Last Admin: 12/24/18 21:52 Dose: 60 mg Prednisone (Deltasone -) 40 mg PO BID [facility] Last Admin: 12/24/18 21:07 Dose: 40 mg Ambulatory Orders Acetaminophen Oral Solution [Tylenol Oral Solution -] 650 mg GT Q6H PRN Baclofen 20 mg GT BID 08/08/18 Budesonide/Formeterol Fumarate [SYMBICORT 80/4.5mcg -] 2 inh PO BID 08/08/18 Calcium Carbonate/Vitamin D3 [Oyster Shell 500-Vit D3 200 Pk] 1 each GT BID Clotrimazole 45 appful TD BID 08/08/18 Hydrocortisone 1% Cream [Hytone 1% Cream -] 1 applic TP BID 08/08/18 Ipratropium/Albuterol Sulfate [Iprat-Albut 0.5-3(2.5) mg/3 ml] 3 ml IH QID 08/08 Magnesium Hydrox 2400MG/30Ml [Milk of Magnesia -] 30 ml GT HS 08/08/18 Montelukast Na [Singulair -] 10 mg GT HS 08/08/18 Multivit-Min/FA/Lycopen/Lutein [Vitrum 50+ Senior Tablet] 1 each GT DAILY Phenobarbital 32.4 mg GT ASDIR 08/08/18 Phenobarbital 64.8 mg GT HS 08/08/18 ASSESSMENT/PLAN: 38 year old female with PMH of asthma, microcephaly, seizures, developmental delay, CAD, esophagitis, scoliosis, and quadriplegia who presents today with an asthma exacerbation. Asthma exacerbation: Not likely precipitated by infection Improved oxygenation, off venturimask on NC Started PO prednisone 12/23 Per Pulm start taper 12/25 Symbicort Advair Singulair Cont GT feeds Pt recieved vanc/zosyn in ED- hold AB Kelloid on skin Continue topical creams Atelectasis In setting of mental retardation and scoliosis Cont supplemental oxygenation Cont bronchodilators and steroid taper microcephaly, seizures, developmental delay, CAD, esophagitis, scoliosis, quadriplegia Cont antisizure meds Protonix DVT Prophylaxis: Lovenox 40 mg SQ QDaily Med surg Visit type - Emergency Visit Emergency Visit: Yes ED Registration Date: 12/23/18 Care time: The patient presented to the Emergency Department on the above date and was hospitalized for further evaluation of their emergent condition. - New Patient This patient is new to me today: No - Critical Care Critical Care patient: No - Discharge Referral Referred to [facility] Med P.C.: No ATTENDING PHYSICIAN STATEMENT I saw and evaluated the patient. I reviewed the resident's note and discussed the case with the resident. I agree with the resident's findings and plan as documented. SUBJECTIVE: OBJECTIVE: ASSESSMENT AND PLAN:
--- NOTE | 2018-12-24 10:09 | PN ---
Progress Note (short form) - Note Progress Note: NAD on 3 L NC O2. No documented acute events overnight. Afebrile. Intake & Output 12/21/18 12/22/18 12/23/18 12/24/18 23:59 23:59 23:59 23:59 Intake Total 490 Balance 490 Weight 90 lb 90 lb Last Vital Signs Temp Pulse Resp BP Pulse Ox 97.2 F L 100 H 18 115/72 100 12/24/18 06:00 12/24/18 06:00 12/24/18 06:00 12/24/18 06:00 12/23/18 06:03 Active Medications Acetaminophen (Tylenol Oral Solution -) 650 mg GT Q6H PRN PRN Reason: PAIN Albuterol Sulfate (Ventolin 0.083% Nebulizer Soln -) 1 amp NEB Q4H PRN PRN Reason: SHORT OF BREATH/WHEEZING Albuterol/Ipratropium (Duoneb -) 1 amp NEB RQID [facility] Last Admin: 12/24/18 07:55 Dose: 1 amp Baclofen (Lioresal -) 20 mg GT BID [facility] Last Admin: 12/23/18 23:15 Dose: 20 mg Budesonide/Formoterol Fumarate (Symbicort 80/4.5mcg -) 2 puff IH BID [facility] Last Admin: 12/23/18 22:40 Dose: 2 puff Calcium Carbonate/Cholecalciferol (Os-Del 500+D -) 1 tab GT BID JAMIL Clotrimazole (Gyne-Lotrimin -) 1 applic VG BID JAMIL Enoxaparin Sodium (Lovenox -) 40 mg SQ DAILY [facility] Last Admin: 12/23/18 11:42 Dose: 40 mg Hydrocortisone (Hytone 1% Cream -) 1 applic TP BID JAMIL Sodium Chloride (Normal Saline -) 1,000 mls @ 42 mls/hr IV ASDIR [facility] Last Admin: 12/23/18 05:57 Dose: 42 mls/hr Magnesium Hydroxide (Milk Of Magnesia -) 30 ml PO HS JAMIL Montelukast Sodium (Singulair -) 10 mg GT HS JAMIL Pantoprazole Sodium (Protonix -) 40 mg PO DAILY [facility] Last Admin: 12/23/18 11:42 Dose: Not Given Phenobarbital (Phenobarbital -) 30 mg GT DAILY@1999 [facility] Last Admin: 12/23/18 23:16 Dose: 30 mg Phenobarbital (Phenobarbital -) 60 mg GT HS [facility] Last Admin: 12/23/18 23:16 Dose: 60 mg Prednisone (Deltasone -) 40 mg PO BID [facility] Last Admin: 12/23/18 22:46 Dose: 40 mg Constitutional: Yes: NAD Eyes: Yes: Conjunctiva Clear, EOM Intact HENT: Yes: Atraumatic, Normocephalic Neck: Yes: Supple, Trachea Midline Cardiovascular: Yes: Regular Rate and Rhythm Respiratory: Yes: bilateral scattered Rhonchi: left > right, no wheeze ...Clubbing: No Gastrointestinal: Yes: Normal Bowel Sounds, Soft. No: Tenderness Edema: No Neurological: Yes: Alert Labs: Laboratory Results - last 24 hr 12/23/18 12/23/18 12/23/18 09:13 09:13 15:10 WBC RBC Hgb Hct MCV MCH MCHC RDW Plt Count MPV Absolute Neuts (auto) Total Counted 100 Neutrophils % Neutrophils % (Manual) 90.0 H Band Neutrophils % 6.0 Lymphocytes % Lymphocytes % (Manual) 3.0 L Monocytes % Monocytes % (Manual) 1 L Eosinophils % Basophils % Nucleated RBC % Anticoagulation Therapy No Result Required. Puncture Site Right radial ABG pH 7.43 ABG pCO2 at Pt Temp 28.0 L ABG pO2 at Pt Temp 58.7 L ABG HCO3 18.6 L ABG O2 Sat (Measured) 89.7 L ABG O2 Content 18.1 ABG Base Excess -3.7 L Don Test Positive O2 Delivery Device No Result Required. Oxygen Flow Rate Yes Vent Mode No Result Required. Vent Rate No Result Required. Mechanical Rate No Result Required. Pressure Support Vent No Result Required. Sodium 138 Potassium 4.3 Chloride 106 Carbon Dioxide 20 L Anion Gap 12 BUN 10.4 Creatinine 0.3 L Est GFR (CKD-EPI)AfAm 168.34 Est GFR (CKD-EPI)NonAf 145.24 Random Glucose 83 Calcium 9.0 Phosphorus 3.4 Magnesium 2.5 H Total Bilirubin 0.4 AST 18 ALT 29 Alkaline Phosphatase 91 Total Protein 7.7 Albumin 3.3 L 12/24/18 12/24/18 07:20 07:20 WBC 8.2 RBC 5.12 Hgb 14.3 Hct 42.9 MCV 83.9 MCH 28.0 MCHC 33.3 RDW 14.8 Plt Count 262 MPV 9.1 Absolute Neuts (auto) 6.4 Total Counted Neutrophils % 78.1 Neutrophils % (Manual) Band Neutrophils % Lymphocytes % 14.9 D Lymphocytes % (Manual) Monocytes % 6.5 D Monocytes % (Manual) Eosinophils % 0.1 Basophils % 0.4 Nucleated RBC % 0 Anticoagulation Therapy Puncture Site ABG pH ABG pCO2 at Pt Temp ABG pO2 at Pt Temp ABG HCO3 ABG O2 Sat (Measured) ABG O2 Content ABG Base Excess Don Test O2 Delivery Device Oxygen Flow Rate Vent Mode Vent Rate Mechanical Rate Pressure Support Vent Sodium 140 Potassium 4.0 Chloride 109 H Carbon Dioxide 19 L Anion Gap 12 BUN 17.6 Creatinine 0.4 L Est GFR (CKD-EPI)AfAm 153.14 Est GFR (CKD-EPI)NonAf 132.13 Random Glucose 89 Calcium 9.1 Phosphorus 4.2 Magnesium 2.4 Total Bilirubin 0.3 AST 20 ALT 29 Alkaline Phosphatase 85 Total Protein 7.3 Albumin 3.3 L Problem List - Problems (1) Asthma exacerbation Code(s): J45.901 - UNSPECIFIED ASTHMA WITH (ACUTE) EXACERBATION Qualifiers: Asthma severity: unspecified severity Asthma persistence: unspecified Qualified Code(s): J45.901 - Unspecified asthma with (acute) exacerbation (2) Seizure disorder Code(s): G40.909 - EPILEPSY, UNSP, NOT INTRACTABLE, WITHOUT STATUS EPILEPTICUS Assessment/Plan Acute Asthma Exacerbation Atelectasis Severe Scoliosis/Restrictive Lung Disease Mental Retardation Functional Quadriplegia Seizure Disorder - prednisone BID: can start taper by tomorrow - inhaled bronchodilators standing and PRN - Monitor off ABX - O2 to keep SpO2 >90% - singulair - aspiration precautions - DVT prophylaxis - D/C planning Dr Noriega
[2018-12-24] MEDS: BACLOFEN 10 MG TABLET (FP) GT SCH ×2 (10:17→21:07)
[2018-12-24] MEDS: PANTOPRAZOLE 40 MG TABLET (FP) PO SCH (10:17)
[2018-12-24] MEDS: CLOTRIMAZOLE 1% VAGINAL CREAM WITH APPLICATOR 45 GM TUBE VG SCH ×2 (10:18→21:09)
[2018-12-24] MEDS: predniSONE 20 MG TABLET (UD) PO SCH ×2 (10:18→21:07)
[2018-12-24] MEDS: MULTIVIT-MINERALS ORAL LIQUID PO SCH (10:19)
[2018-12-24] MEDS: HYDROCORTISONE 1% TOPICAL CREAM 30 GM TUBE TP SCH ×2 (10:19→21:09)
[2018-12-24] MEDS: ENOXAPARIN NA (PORCINE) 40 MG/0.4 ML DISP.SYRIN SQ SCH (10:20)
[2018-12-24] MEDS: CALCIUM 500MG/VIT-D 200 UNITS COMBO TABLET (FP) GT SCH ×2 (10:20→21:08)
[2018-12-24] MEDS: BUDESONIDE/FORMETEROL FUMARATE 80/4.5 mcg INHALER IH SCH ×2 (10:21→21:13)
[2018-12-24] MEDS: SODIUM CHLORIDE 1,000 ML IV SCH (11:00)
[2018-12-24 12:14] LABS: ARTERIAL BLD GAS O2 SATURATION 96.6 % (95-98); ARTERIAL BLOOD GAS BASE EXCESS -1.7 meq/l (-2-2); ARTERIAL BLOOD GAS PCO2 29.2 mmHg (35-45); ARTERIAL BLOOD GAS PO2 86.1 mmHg (80-105); ARTERIAL BLOOD GAS pH 7.46 (7.35-7.45)
[2018-12-24 12:17] LABS: ALLENS TEST POSITIVE
--- NOTE | 2018-12-24 13:26 | PN ---
Teaching Attending Note Name of Resident: Shira Meredith March ATTENDING PHYSICIAN STATEMENT I saw and evaluated the patient. I reviewed the resident's note and discussed the case with the resident. I agree with the resident's findings and plan as documented. SUBJECTIVE: unable to obtain OBJECTIVE: Last Vital Signs Temp Pulse Resp BP Pulse Ox 36.2 C L 100 H 18 115/72 100 12/24/18 06:00 12/24/18 06:00 12/24/18 06:00 12/24/18 06:00 12/23/18 06:03 Gen: nad Pulm: ctab w/o w/r/r, on NC CV: slightly tachy but no m/r/g Abd: +bs, s/nt/nd Ext: no c/c/e CBC, BMP 12/24/18 07:20 12/24/18 07:20 ASSESSMENT AND PLAN: (1) Asthma exacerbation Assessment/Plan: -appreciate pulmonary assistance -oxygen requirement significantly lessened -continue prednisone bid -begin taper tomorrow -possible discharge tomorrow Code(s): J45.901 - UNSPECIFIED ASTHMA WITH (ACUTE) EXACERBATION Qualifiers: Asthma severity: moderate Asthma persistence: persistent Qualified Code(s ): J45.41 - Moderate persistent asthma with (acute) exacerbation (2) History of keloid of skin Assessment/Plan: -noted on exam Code(s): Z87.2 - PERSONAL HISTORY OF DISEASES OF THE SKIN, SUBCU (3) Hypoxia Assessment/Plan: -continue oxygen support Code(s): R09.02 - HYPOXEMIA (4) Seizure disorder Assessment/Plan: -cont phenobarbital and baclofen Code(s): G40.909 - EPILEPSY, UNSP, NOT INTRACTABLE, WITHOUT STATUS EPILEPTICUS Problem List - Problems (1) Asthma exacerbation Code(s): J45.901 - UNSPECIFIED ASTHMA WITH (ACUTE) EXACERBATION Qualifiers: Asthma severity: moderate Asthma persistence: persistent Qualified Code(s ): J45.41 - Moderate persistent asthma with (acute) exacerbation (2) History of keloid of skin Code(s): Z87.2 - PERSONAL HISTORY OF DISEASES OF THE SKIN, SUBCU (3) Hypoxia Code(s): R09.02 - HYPOXEMIA (4) Seizure disorder Code(s): G40.909 - EPILEPSY, UNSP, NOT INTRACTABLE, WITHOUT STATUS EPILEPTICUS
[2018-12-24] MEDS: PHENobarbital 30 MG TABLET GT SCH ×2 (20:39→21:52)
[2018-12-24] MEDS: MONTELUKAST NA 10 MG TABLET GT SCH (21:07)
[2018-12-24] MEDS: MAGNESIUM HYDROX 2400MG/30ML ORAL SUSPENSION 30 ML CUP PO SCH (21:07)
[2018-12-25] MEDS: ALBUTEROL SO4 2.5/IPRATROPIUM 0.5 INH SOL 3 ML VIAL.NEB. NEB SCH ×4 (04:00→20:10)
--- NOTE | 2018-12-25 09:25 | PN ---
Physical Exam: SUBJECTIVE: Patient seen and examined. Resting comfortably, getting breathing treatment and on nasal cannular. OBJECTIVE: Vital Signs Period Temp Pulse Resp BP Sys/Holley Pulse Ox Last 24 Hr 97.3 F-98.1 F 85-104 18-20 99-106/57-64 96 GENERAL: The patient is awake, alert HEAD: Facies with kelloids EYES: PERRL, extraocular movements intact, ENT: NC kelloids LUNGS: Breath sounds equal, clear to auscultation bilaterally, no wheezes, no crackles HEART: Regular rate and rhythm, S1, S2 ABDOMEN: Soft, nondistended, normoactive bowel soundsL GT in place, kelloids EXTREMITIES: Deformed and contracted NEUROLOGICAL: Awake, nonverbal at baseline Laboratory Results - last 24 hr 12/24/18 12:05 Anticoagulation Therapy No Result Required. Puncture Site Right radial ABG pH 7.46 H ABG pCO2 at Pt Temp 29.2 L ABG pO2 at Pt Temp 86.1 ABG HCO3 20.5 L ABG O2 Sat (Measured) 96.6 ABG O2 Content 19.3 ABG Base Excess -1.7 Don Test Positive O2 Delivery Device No Result Required. Oxygen Flow Rate Yes Vent Mode No Result Required. Vent Rate No Result Required. Mechanical Rate No Result Required. Pressure Support Vent No Result Required. Active Medications Generic Name Dose Route Start Last Admin Trade Name Freq PRN Reason Stop Dose Admin Acetaminophen 650 mg 12/23/18 23:07 Tylenol Oral Solution - GT Q6H PRN PAIN Albuterol Sulfate 1 amp 12/23/18 13:50 Ventolin 0.083% Nebulizer Soln - NEB Q4H PRN SHORT OF BREATH/WHEEZING Albuterol/Ipratropium 1 amp 12/23/18 16:00 12/25/18 07:15 Duoneb - NEB 1 amp RQID JAMIL Administration Baclofen 20 mg 12/23/18 23:00 12/24/18 21:07 Lioresal - GT 20 mg BID JAMIL Administration Budesonide/Formoterol Fumarate 2 puff 12/23/18 23:00 12/24/18 21:13 Symbicort 80/4.5mcg - IH Not Given BID JAMIL Calcium Carbonate/Cholecalciferol 1 tab 12/24/18 10:00 12/24/18 21:08 Os-Del 500+D - GT 1 tab BID JAMIL Administration Clotrimazole 1 applic 12/24/18 10:00 12/24/18 21:09 Gyne-Lotrimin - VG 1 applic BID JAMIL Administration Enoxaparin Sodium 40 mg 12/23/18 10:00 12/24/18 10:20 Lovenox - SQ 40 mg DAILY JAMIL Administration Hydrocortisone 1 applic 12/24/18 10:00 12/24/18 21:09 Hytone 1% Cream - TP 1 applic BID JAMIL Administration Sodium Chloride 1,000 mls @ 42 mls/hr 12/23/18 05:45 12/24/18 11:00 Normal Saline - IV Not Given ASDIR JAMIL Magnesium Hydroxide 30 ml 12/24/18 22:00 12/24/18 21:07 Milk Of Magnesia - PO 30 ml HS JAMIL Administration Montelukast Sodium 10 mg 12/24/18 22:00 12/24/18 21:07 Singulair - GT 10 mg HS JAMIL Administration Pantoprazole Sodium 40 mg 12/23/18 10:00 12/24/18 10:17 Protonix - PO 40 mg DAILY JMAIL Administration Phenobarbital 30 mg 12/23/18 23:15 12/24/18 20:39 Phenobarbital - GT 30 mg DAILY@2000 JAMIL Administration Phenobarbital 60 mg 12/23/18 23:15 12/24/18 21:52 Phenobarbital - GT 60 mg HS JAMIL Administration Prednisone 40 mg 12/23/18 22:00 12/24/18 21:07 Deltasone - PO 40 mg BID JAMIL Administration Ambulatory Orders Acetaminophen Oral Solution [Tylenol 160mg/5mL Oral Solution -] 650 mg GT Q6H PRN 08/08/18 Baclofen 20 mg GT BID 08/08/18 Budesonide/Formeterol Fumarate [SYMBICORT 80/4.5mcg -] 2 inh PO BID 08/08/18 Calcium Carbonate/Vitamin D3 [Oyster Shell 500-Vit D3 200 Pk] 1 each GT BID Clotrimazole 45 appful TD BID 08/08/18 Hydrocortisone 1% Cream [Hytone 1% Cream -] 1 applic TP BID 08/08/18 Ipratropium/Albuterol Sulfate [Iprat-Albut 0.5-3(2.5) mg/3 ml] 3 ml IH QID 08/08 Magnesium Hydrox 2400MG/30Ml [Milk of Magnesia -] 30 ml GT HS 08/08/18 Montelukast Na [Singulair -] 10 mg GT HS 08/08/18 Multivit-Min/FA/Lycopen/Lutein [Vitrum 50 Plus Senior Tablet] 1 each GT DAILY Phenobarbital 32.4 mg GT ASDIR 08/08/18 Phenobarbital 64.8 mg GT HS 08/08/18 Albuterol 0.083% Nebulizer Kathleen [Ventolin 0.083% Nebulizer Soln -] 1 amp NEB Q4H PRN #7 vial 12/25/18 Prednisone See Taper PO ASDIR #30 tab.ds.pk 12/25/18 Current Medications Acetaminophen (Tylenol Oral Solution -) 650 mg GT Q6H PRN PRN Reason: PAIN Albuterol Sulfate (Ventolin 0.083% Nebulizer Soln -) 1 amp NEB Q4H PRN PRN Reason: SHORT OF BREATH/WHEEZING Albuterol/Ipratropium (Duoneb -) [address] [facility] Last Admin: 12/26/18 07:30 Dose: 1 amp Baclofen (Lioresal -) [address] [facility] Last Admin: 12/25/18 21:04 Dose: 20 mg Budesonide/Formoterol Fumarate (Symbicort 80/4.5mcg -) [address] [facility] Last Admin: 12/25/18 21:04 Dose: 2 puff Calcium Carbonate/Cholecalciferol (Os-Del 500+D -) [address] [facility] Last Admin: 12/25/18 21:05 Dose: 1 tab Clotrimazole (Gyne-Lotrimin -) [address] [facility] Last Admin: 12/25/18 21:04 Dose: 1 applic Enoxaparin Sodium (Lovenox -) [address] [facility] Last Admin: 12/25/18 09:55 Dose: 40 mg Hydrocortisone (Hytone 1% Cream -) [address] [facility] Last Admin: 12/25/18 21:06 Dose: 1 applic Magnesium Hydroxide (Milk Of Magnesia -) [address] [facility] Last Admin: 12/25/18 21:05 Dose: 30 ml Montelukast Sodium (Singulair -) [address] [facility] Last Admin: 12/25/18 21:05 Dose: 10 mg Pantoprazole Sodium (Protonix -) [address] [facility] Last Admin: 12/25/18 09:55 Dose: 40 mg Phenobarbital (Phenobarbital -) 30 mg GT DAILY@1999 [facility] Last Admin: 12/25/18 20:55 Dose: 30 mg Phenobarbital (Phenobarbital -) [address] [facility] Last Admin: 12/25/18 21:04 Dose: 60 mg Prednisone (Deltasone -) [address] [facility] Last Admin: 12/25/18 21:05 Dose: 40 mg ASSESSMENT/PLAN: 38 year old female with PMH of asthma, microcephaly, seizures, developmental delay, CAD, esophagitis, scoliosis, and quadriplegia who presents today with an asthma exacerbation. Asthma exacerbation: Not likely precipitated by infection Improved oxygenation, off venturimask on NC Started PO prednisone 12/23 Per Pulm start taper 12/25 Symbicort Advair Singulair Cont GT feeds Pt recieved vanc/zosyn in ED- hold AB Kelloid on skin Continue topical creams Atelectasis In setting of mental retardation and scoliosis Cont supplemental oxygenation Cont bronchodilators and steroid taper microcephaly, seizures, developmental delay, CAD, esophagitis, scoliosis, quadriplegia Cont antisizure meds Protonix DVT Prophylaxis: Lovenox 40 mg SQ QDaily Dispo: Pt was set up for dc, Spoke to Dr Bloom who requested pt be off oxygen for 24 hrs Pre and post done showed saturation 94% [employer] number at [phone] (Darci) Asked to be called and they may take the pt over the weekend Visit type - Emergency Visit Emergency Visit: Yes ED Registration Date: 12/23/18 Care time: The patient presented to the Emergency Department on the above date and was hospitalized for further evaluation of their emergent condition. - New Patient This patient is new to me today: No - Critical Care Critical Care patient: No - Discharge Referral Referred to [facility] Med [facility] No ATTENDING PHYSICIAN STATEMENT I saw and evaluated the patient. I reviewed the resident's note and discussed the case with the resident. I agree with the resident's findings and plan as documented. SUBJECTIVE: OBJECTIVE: ASSESSMENT AND PLAN:
[2018-12-25] MEDS: BACLOFEN 10 MG TABLET (FP) GT SCH ×2 (09:54→21:04)
[2018-12-25] MEDS: predniSONE 20 MG TABLET (UD) PO SCH ×2 (09:54→21:05)
[2018-12-25] MEDS: PANTOPRAZOLE 40 MG TABLET (FP) PO SCH (09:55)
[2018-12-25] MEDS: ENOXAPARIN NA (PORCINE) 40 MG/0.4 ML DISP.SYRIN SQ SCH (09:55)
[2018-12-25] MEDS: CALCIUM 500MG/VIT-D 200 UNITS COMBO TABLET (FP) GT SCH ×2 (09:55→21:05)
[2018-12-25] MEDS: BUDESONIDE/FORMETEROL FUMARATE 80/4.5 mcg INHALER IH SCH ×2 (09:56→21:04)
[2018-12-25] MEDS: SODIUM CHLORIDE 1,000 ML IV SCH (10:08)
--- NOTE | 2018-12-25 12:18 | PN ---
Progress Note, Physician History of Present Illness: pulmonary awake,no distress,less congested - Current Medication List Current Medications: Active Medications Acetaminophen (Tylenol Oral Solution -) 650 mg GT Q6H PRN PRN Reason: PAIN Albuterol Sulfate (Ventolin 0.083% Nebulizer Soln -) 1 amp NEB Q4H PRN PRN Reason: SHORT OF BREATH/WHEEZING Albuterol/Ipratropium (Duoneb -) 1 amp NEB RQID [facility] Last Admin: 12/25/18 11:05 Dose: 1 amp Baclofen (Lioresal -) 20 mg GT BID [facility] Last Admin: 12/25/18 09:54 Dose: 20 mg Budesonide/Formoterol Fumarate (Symbicort 80/4.5mcg -) 2 puff IH BID [facility] Last Admin: 12/25/18 09:56 Dose: 2 puff Calcium Carbonate/Cholecalciferol (Os-Del 500+D -) 1 tab GT BID [facility] Last Admin: 12/25/18 09:55 Dose: 1 tab Clotrimazole (Gyne-Lotrimin -) 1 applic VG BID [facility] Last Admin: 12/24/18 21:09 Dose: 1 applic Enoxaparin Sodium (Lovenox -) 40 mg SQ DAILY [facility] Last Admin: 12/25/18 09:55 Dose: 40 mg Hydrocortisone (Hytone 1% Cream -) 1 applic TP BID [facility] Last Admin: 12/24/18 21:09 Dose: 1 applic Magnesium Hydroxide (Milk Of Magnesia -) 30 ml PO HS [facility] Last Admin: 12/24/18 21:07 Dose: 30 ml Montelukast Sodium (Singulair -) 10 mg GT HS [facility] Last Admin: 12/24/18 21:07 Dose: 10 mg Pantoprazole Sodium (Protonix -) 40 mg PO DAILY [facility] Last Admin: 12/25/18 09:55 Dose: 40 mg Phenobarbital (Phenobarbital -) 30 mg GT DAILY@1999 [facility] Last Admin: 12/24/18 20:39 Dose: 30 mg Phenobarbital (Phenobarbital -) 60 mg GT HS [facility] Last Admin: 12/24/18 21:52 Dose: 60 mg Prednisone (Deltasone -) 40 mg PO BID [facility] Last Admin: 12/25/18 09:54 Dose: 40 mg - Objective Vital Signs: Vital Signs Temperature 97.4 F L 12/25/18 07:20 Pulse Rate 85 12/25/18 07:20 Respiratory Rate 18 12/25/18 07:20 Blood Pressure 106/57 L 12/25/18 07:20 O2 Sat by Pulse Oximetry (%) 96 12/24/18 21:00 Constitutional: Yes: Calm, Thin Eyes: Yes: WNL HENT: Yes: WNL Neck: Yes: WNL Cardiovascular: Yes: Regular Rate and Rhythm, S1, S2 Respiratory: Yes: Rhonchi, Wheezes (scattered zonia rhonchi and wheezes) Gastrointestinal: Yes: Normal Bowel Sounds, Soft Extremities: Yes: Other (contracted) Edema: No Labs: CBC, BMP 12/24/18 07:20 12/24/18 07:20 INR, PTT INR 1.10 (0.83-1.09) H 12/22/18 22:45 Assessment/Plan Problem List - Problems (1) Asthma exacerbation Code(s): J45.901 - UNSPECIFIED ASTHMA WITH (ACUTE) EXACERBATION Qualifiers: Asthma severity: unspecified severity Asthma persistence: unspecified Qualified Code(s): J45.901 - Unspecified asthma with (acute) exacerbation (2) Seizure disorder Code(s): G40.909 - EPILEPSY, UNSP, NOT INTRACTABLE, WITHOUT STATUS EPILEPTICUS Assessment/Plan Acute Asthma Exacerbation improving Atelectasis Severe Scoliosis/Restrictive Lung Disease Mental Retardation Functional Quadriplegia Seizure Disorder - prednisone BID - inhaled bronchodilators standing and PRN - O2 to keep SpO2 >90% - singulair - aspiration precautions - DVT prophylaxis DR ALVARADO
[2018-12-25] MEDS: MULTIVIT-MINERALS ORAL LIQUID PO SCH (12:48)
[2018-12-25] MEDS: HYDROCORTISONE 1% TOPICAL CREAM 30 GM TUBE TP SCH ×2 (12:49→21:06)
[2018-12-25] MEDS: CLOTRIMAZOLE 1% VAGINAL CREAM WITH APPLICATOR 45 GM TUBE VG SCH ×2 (12:50→21:04)
--- NOTE | 2018-12-25 19:19 | PN ---
Teaching Attending Note Name of Resident: Shira Harper Anca ATTENDING PHYSICIAN STATEMENT I saw and evaluated the patient. I reviewed the resident's note and discussed the case with the resident. I agree with the resident's findings and plan as documented. SUBJECTIVE: unable to obtain OBJECTIVE: Last Vital Signs Temp Pulse Resp BP Pulse Ox 36.5 C 109 H 20 96/59 L 97 12/25/18 18:00 12/25/18 18:00 12/25/18 18:00 12/25/18 18:00 12/25/18 14:08 Gen: nad Pulm: ctab CV: rrr w/o m/r/g Abd: +bs, s/nt/nd Ext: no c/c/e ASSESSMENT AND PLAN: (1) Asthma exacerbation Assessment/Plan: -resolved -pre and post negative -case d/w [place], will not accept unless off oxygen for 24 hours -stop oxygen today, if tolerates RA will discharge tomorrow Code(s): J45.901 - UNSPECIFIED ASTHMA WITH (ACUTE) EXACERBATION Qualifiers: Asthma severity: moderate Asthma persistence: persistent Qualified Code(s ): J45.41 - Moderate persistent asthma with (acute) exacerbation (2) History of keloid of skin Assessment/Plan: -noted on exam Code(s): Z87.2 - PERSONAL HISTORY OF DISEASES OF THE SKIN, SUBCU (3) Hypoxia Assessment/Plan: -resolved Code(s): R09.02 - HYPOXEMIA (4) Seizure disorder Assessment/Plan: -cont phenobarbital and baclofen Code(s): G40.909 - EPILEPSY, UNSP, NOT INTRACTABLE, WITHOUT STATUS EPILEPTICUS Problem List - Problems (1) Asthma exacerbation Code(s): J45.901 - UNSPECIFIED ASTHMA WITH (ACUTE) EXACERBATION Qualifiers: Asthma severity: moderate Asthma persistence: persistent Qualified Code(s ): J45.41 - Moderate persistent asthma with (acute) exacerbation (2) History of keloid of skin Code(s): Z87.2 - PERSONAL HISTORY OF DISEASES OF THE SKIN, SUBCU (3) Hypoxia Code(s): R09.02 - HYPOXEMIA (4) Seizure disorder Code(s): G40.909 - EPILEPSY, UNSP, NOT INTRACTABLE, WITHOUT STATUS EPILEPTICUS
[2018-12-25] MEDS: PHENobarbital 30 MG TABLET GT SCH ×2 (20:55→21:04)
[2018-12-25] MEDS: MAGNESIUM HYDROX 2400MG/30ML ORAL SUSPENSION 30 ML CUP PO SCH (21:05)
[2018-12-25] MEDS: MONTELUKAST NA 10 MG TABLET GT SCH (21:05)
[2018-12-26] MEDS: ALBUTEROL SO4 2.5/IPRATROPIUM 0.5 INH SOL 3 ML VIAL.NEB. NEB SCH ×3 (07:30→16:32)
[2018-12-26] MEDS ORDERED: PT OWN MED DRAWER 7, Y5N ONE (09:46)
[2018-12-26] MEDS: predniSONE 20 MG TABLET (UD) PO SCH (10:00)
[2018-12-26] MEDS: CALCIUM 500MG/VIT-D 200 UNITS COMBO TABLET (FP) GT SCH (10:00)
[2018-12-26] MEDS: MULTIVIT-MINERALS ORAL LIQUID PO SCH (10:01)
[2018-12-26] MEDS: ENOXAPARIN NA (PORCINE) 40 MG/0.4 ML DISP.SYRIN SQ SCH (10:01)
[2018-12-26] MEDS: BACLOFEN 10 MG TABLET (FP) GT SCH (10:01)
[2018-12-26] MEDS: PANTOPRAZOLE 40 MG TABLET (FP) PO SCH (10:01)
[2018-12-26] MEDS: BUDESONIDE/FORMETEROL FUMARATE 80/4.5 mcg INHALER IH SCH (10:02)
[2018-12-26] MEDS: HYDROCORTISONE 1% TOPICAL CREAM 30 GM TUBE TP SCH (10:03)
[2018-12-26] MEDS: CLOTRIMAZOLE 1% VAGINAL CREAM WITH APPLICATOR 45 GM TUBE VG SCH (10:03)
--- NOTE | 2018-12-26 12:06 | PN ---
Progress Note (short form) - Note Progress Note: PULMONARY awake,no distress,less congested VSS/AFEBRILE Constitutional: Yes: Calm, Thin Eyes: Yes: WNL HENT: Yes: WNL Neck: Yes: WNL Cardiovascular: Yes: Regular Rate and Rhythm, S1, S2 Respiratory: Yes: Rhonchi, Wheezes (scattered zonia rhonchi and wheezes) Gastrointestinal: Yes: Normal Bowel Sounds, Soft Extremities: Yes: Other (contracted) Edema: No Labs: NOTED (1) Asthma exacerbation Code(s): J45.901 - UNSPECIFIED ASTHMA WITH (ACUTE) EXACERBATION Qualifiers: Asthma severity: unspecified severity Asthma persistence: unspecified Qualified Code(s): J45.901 - Unspecified asthma with (acute) exacerbation (2) Seizure disorder Code(s): G40.909 - EPILEPSY, UNSP, NOT INTRACTABLE, WITHOUT STATUS EPILEPTICUS Assessment/Plan Acute Asthma Exacerbation improved Atelectasis Severe Scoliosis/Restrictive Lung Disease Mental Retardation Functional Quadriplegia Seizure Disorder - prednisone BID - inhaled bronchodilators standing and PRN - O2 to keep SpO2 >90% - singulair - aspiration precautions - DVT prophylaxis - agree with current plan. Breanna LARA MD
--- NOTE | 2018-12-26 15:53 | DS ---
Physical Examination Vital Signs: Vital Signs Temperature 36.4 C L 12/26/18 15:21 Pulse Rate 95 H 12/26/18 15:21 Respiratory Rate 20 12/26/18 15:21 Blood Pressure 159/66 12/26/18 15:21 O2 Sat by Pulse Oximetry (%) 100 12/26/18 09:00 Constitutional: Yes: Well Nourished, No Distress, Calm Cardiovascular: Yes: Regular Rate and Rhythm. No: Gallop, Murmur, Rub Respiratory: Yes: Regular, CTA Bilaterally. No: Rales, Rhonchi, Wheezes Gastrointestinal: Yes: Normal Bowel Sounds, Soft. No: Distention, Tenderness Extremities: Yes: WNL Edema: No Labs: CBC, BMP 12/24/18 07:20 12/24/18 07:20 Discharge Summary Reason For Visit: EXACERBATION OF ASTHMA, PNEUMONIA Current Active Problems Asthma exacerbation (Acute) Pneumonia (Acute) Hospital Course: (1) Asthma exacerbation Code(s): J45.901 - UNSPECIFIED ASTHMA WITH (ACUTE) EXACERBATION Qualifiers: Asthma severity: moderate Asthma persistence: persistent Qualified Code(s ): J45.41 - Moderate persistent asthma with (acute) exacerbation (2) History of keloid of skin Code(s): Z87.2 - PERSONAL HISTORY OF DISEASES OF THE SKIN, SUBCU (3) Hypoxia Code(s): R09.02 - HYPOXEMIA (4) Seizure disorder Code(s): G40.909 - EPILEPSY, UNSP, NOT INTRACTABLE, WITHOUT STATUS EPILEPTICUS Miss Oconnor is a 38 year old female from [place] that comes in with asthma exacerbation. She was admitted to med/surg and seen by pulmonary. She was placed on IV solumedrol and oxygen. She was continued on bronchodilators. She did not require antibiotics. She improved significantly and she was successfully weaned off of oxygen. She was seen by RT and a pre and post was done and her oxygen on room air was 97%. She was observed for 24 hours on room air and remained 97-100%. She is safe to discharge back to [place] today for further care. 31 minutes spent in preparation of this discharge Condition: Improved - Instructions Diet, Activity, Other Instructions: You came in with an asthma exacerbation. We gave you steroids and continued you on your nebulizer We added a ventolin nebulizer to use as needed We are sending you home on a short steroid taper Continue your other medications as directed If you think your symptoms are getting to worse with increased need for oxygen, persistent wheeze despite use of inhalers, please go to the nearest emergency room. Disposition: ALF FACILITY - Home Medications Comprehensive Discharge Medication List: Ambulatory Orders Acetaminophen Oral Solution [Tylenol 160mg/5mL Oral Solution -] 650 mg GT Q6H PRN 08/08/18 Baclofen 20 mg GT BID 08/08/18 Budesonide/Formeterol Fumarate [SYMBICORT 80/4.5mcg -] 2 inh PO BID 08/08/18 Calcium Carbonate/Vitamin D3 [Oyster Shell 500-Vit D3 200 Pk] 1 each GT BID Clotrimazole 45 appful TD BID 08/08/18 Hydrocortisone 1% Cream [Hytone 1% Cream -] 1 applic TP BID 08/08/18 Ipratropium/Albuterol Sulfate [Iprat-Albut 0.5-3(2.5) mg/3 ml] 3 ml IH QID 08/08 Magnesium Hydrox 2400MG/30Ml [Milk of Magnesia -] 30 ml GT HS 08/08/18 Montelukast Na [Singulair -] 10 mg GT HS 08/08/18 Multivit-Min/FA/Lycopen/Lutein [Vitrum 50 Plus Senior Tablet] 1 each GT DAILY Phenobarbital 32.4 mg GT ASDIR 08/08/18 Phenobarbital 64.8 mg GT HS 08/08/18 Albuterol 0.083% Nebulizer Kathleen [Ventolin 0.083% Nebulizer Soln -] 1 amp NEB Q4H PRN #7 vial 12/25/18 Prednisone See Taper PO ASDIR #30 tab.ds.pk 12/25/18
[2018-12-26 17:59] VITALS: BP 119/64; PULSE 104; TEMP 97.9
== END 2018-12-26 19:57 | DRG 141 ==
LOC: JER 20:39 → JERBED 12-23 03:26 → J8W 12-23 08:13
PROVIDERS: ADMIT Internal Medicine; ATTEND Internal Medicine
PROC: 3E0G76Z Introduction of Nutritional Substance into Upper GI, Via Natural or Artificial Opening (ICD-10-PCS; principal; 2018-12-23)
DX: J45.41 Moderate persistent asthma with (acute) exacerbation (principal); R53.2 Functional quadriplegia; M41.9 Scoliosis, unspecified; F73 Profound intellectual disabilities; Q02 Microcephaly; I25.10 Atherosclerotic heart disease of native coronary artery without angina pectoris; G40.909 Epilepsy, unspecified, not intractable, without status epilepticus; R62.50 Unspecified lack of expected normal physiological development in childhood; J98.11 Atelectasis; R00.0 Tachycardia, unspecified; Z93.1 Gastrostomy status
CPT/HCPCS: 36415; 36600; 71045-TC-FY; 71275-TC; 80053; 82803; 83605; 83735; 84100; 84484; 84703; 85025; 85610; 85730; 87040; 93005; 93010; 94640; 94761; 99283-25; J0475; J7030

== ENCOUNTER 2019-02-04 12:23 | Inpatient (IN) | payer OTHER ==
[2019-02-04] MEDS ORDERED: ALBUTEROL SO4 2.5/IPRATROPIUM 0.5 INH SOL 3 ML VIAL.NEB. NEB ONE ×5 (12:27→19:29)
[2019-02-04] MEDS ORDERED: methylPREDNISolone NA SUCC 125 MG/2 ML VIAL ONE (12:27)
[2019-02-04] MEDS ORDERED: methylPREDNISolone NA SUCC 125 MG/2 ML VIAL IVPB ONE (12:40)
[2019-02-04] MEDS ORDERED: MAGNESIUM SULF 50% (8.12 MEQ/2 ML-1 GM VIAL) ONE (12:51)
[2019-02-04] MEDS ORDERED: DEXAMETHASONE SOD PHOSPHATE 10 MG/1 ML VIAL ONE (12:52)
--- NOTE | 2019-02-04 13:01 | PDOC ---
History of Present Illness - General Chief Complaint: Respiratory Distress Stated Complaint: SOB Time Seen by Provider: 02/04/19 12:53 History Source: Care Provider, Retirement Records Exam Limitations: Language Barrier (non verbal ) - History of Present Illness Initial Comments: 02/04/19 13:00 Frandy Oconnor is a 38yF w PMHx asthma, scoliosis, G-tube, intellectual disabilities, esophagitis, keloids, epilepsy transferred from [facility] for respiratory distress This morning, facility endorsed audible wheezing, low O2 sat 90% on room air after given 2 duonebs, O2 sat not improved. Given 2 duonebs, solumedrol by EMT en route. Breathes room air at baseline. Pt non verbal at baseline, unable to provide history, exam Past History - Past Medical History Allergies/Adverse Reactions: Allergies Allergy/AdvReac Type Severity Reaction Status Date / Time No Known Allergies Allergy Verified 12/23/18 05:54 Home Medications: Ambulatory Orders Acetaminophen Oral Solution [Tylenol 160mg/5mL Oral Solution -] 650 mg GT Q6H PRN 08/08/18 Baclofen 20 mg GT BID 08/08/18 Budesonide/Formeterol Fumarate [SYMBICORT 80/4.5mcg -] 2 inh PO BID 08/08/18 Calcium Carbonate/Vitamin D3 [Oyster Shell 500-Vit D3 200 Pk] 1 each GT BID Clotrimazole 45 appful TD BID 08/08/18 Hydrocortisone 1% Cream [Hytone 1% Cream -] 1 applic TP BID 08/08/18 Ipratropium/Albuterol Sulfate [Iprat-Albut 0.5-3(2.5) mg/3 ml] 3 ml IH QID 08/08 Magnesium Hydrox 2400MG/30Ml [Milk of Magnesia -] 30 ml GT HS 08/08/18 Montelukast Na [Singulair -] 10 mg GT HS 08/08/18 Multivit-Min/FA/Lycopen/Lutein [Vitrum 50 Plus Senior Tablet] 1 each GT DAILY Phenobarbital 32.4 mg GT ASDIR 08/08/18 Phenobarbital 64.8 mg GT HS 08/08/18 Albuterol 0.083% Nebulizer Kathleen [Ventolin 0.083% Nebulizer Soln -] 1 amp NEB Q4H PRN #7 vial 12/25/18 Lactose-Reduced Food/Fiber [Jevity 1.5 Del Liquid] 1,000 ml GT ASDIR 02/04/19 Asthma: Yes Cardiac Disorders: Yes COPD: No GI Disorders: Yes (esophagitis) Seizures: Yes (epilepsy) - Surgical History Abdominal Surgery: No Appendectomy: No Cardiac Surgery: No Cholecystectomy: Yes Lung Surgery: No Neurologic Surgery: No Orthopedic Surgery: No - Immunization History Immunization Up to Date: Yes - Suicide/Smoking/Psychosocial Hx Smoking History: Never smoked Have you smoked in the past 12 months: No Hx Alcohol Use: No Drug/Substance Use Hx: No Substance Use Type: None Review of Systems - Review of Systems Able to Perform ROS?: No (pt cannot communicate) *Physical Exam - Physical Exam General Appearance: Yes: Nourished, Appropriately Dressed, Apparent Distress HEENT: positive: EOMI, HI, Other (keloids R jawline, neck). negative: Scleral Icterus (R), Scleral Icterus (L), Nasal Congestion, Rhinorrhea Neck: positive: Supple, Other (green purulent discharge underneath R keloid mass ). negative: Rigid Respiratory/Chest: positive: Respiratory Distress, Accessory Muscle Use, Labored Respiration, Rapid RR, Wheezing (expiratory wheezing bilaterally). negative: Chest Tender, Normal Breath Sounds (audible wheezing), Crackles, Rales , Rhonchi, Stridor, Hyperresonant Cardiovascular: positive: Regular Rhythm, S1, S2, Tachycardia. negative: Edema , Murmur Gastrointestinal/Abdominal: positive: Normal Bowel Sounds, Flat, Soft, Other ( keloid scarring entire AB, loose stool in diaper). negative: Tender, Organomegaly, Mass Rectal Exam: positive: other (rectal prolapse, rectal and vaginal keloids) Integumentary: positive: Normal Color. negative: Warm Neurologic: positive: Alert, Normal Response, Respond to painful stimul. negative: Fully Oriented (unable to assess ) ED Treatment Course - LABORATORY CBC & Chemistry Diagram: 02/04/19 12:57 02/04/19 12:57 Medical Decision Making - Medical Decision Making 02/04/19 13:01 put on nonrebreather, sating low 90s, then put on bipap Given 3xduonebs, 125 solumedrol, 2 Mg spesis order set CXR no acute pathology CBC, CMP, coags normal, trop neg ABG shows ph 7.32 acidosis, pCO2 40 bedside bladder scan performed by Dr. Tony Parker shows normal anatomy, 41cc Frandy Oconnor is a 38yF w PMHx asthma, scoliosis, G-tube, intellectual disabilities, microcephaly, quadriplegia, esophagitis, epilepsy transferred from [facility] for respiratory distress. Came in w fever 100.5, HR 130, RR 44, O2 sat 84. Respiratory distress may be d/t asthma exacerbation 2/2 wheezing, hx asthma. Consider distress 2/2 sepsis in setting of fever temp 100.5, tachy HR 132. Sepsis may be due to gastroenteritis (loose stools in diaper) or UTI. Unlikely lung infection with clear lungs on CXR. Received 2 dunoebs at [place], 2 dunoebs by EMT. Came in w fever 100.5, HR 130 , RR 44, O2 sat 84. Given 3xduonebs, 125 solumedrol, 2 Mg. Placed on bipap w improvement in breathing, RR down to 20, no accessory muscle use, O2sat high 90s. Started vanc, meropenem to cover for sepsis based on prior cultures Unable to find urethral opening for catheterization d/t keloids. Consulted Dr. Haji urology at 230p for trouble finding vaginal/urethral opening for catheterization given extensive keloids in perivaginal area. Advised bladder scan. Bedside bladder scan performed by Dr. Tony Parker shows normal anatomy, 41cc. Dr haji cathed pt w/o complications, urethral opening posterior, left of keloid clitoris. Sent UA, culture 5p Took out both PIVs, bipap mask unlodged, reinserted PIV L hand. Admitted to ICU Dr Del Real for acute respiratory failure on bipap, asthma exacerbation, sepsis *DC/Admit/Observation/Transfer Diagnosis at time of Disposition: Acute respiratory failure Qualifiers: Respiratory failure complication: hypoxia Qualified Code(s): J96.01 - Acute respiratory failure with hypoxia Asthma exacerbation Qualifiers: Asthma severity: moderate Asthma persistence: unspecified Qualified Code(s): J45.901 - Unspecified asthma with (acute) exacerbation - Discharge Dispostion Condition at time of disposition: Improved Decision to Admit order: Yes - Referrals - Patient Instructions - Post Discharge Activity
[2019-02-04 13:12] LABS: ARTERIAL BLD GAS O2 SATURATION 91.3 % (95-98); ARTERIAL BLOOD GAS BASE EXCESS -5.4 meq/l (-2-2); ARTERIAL BLOOD GAS PCO2 40.1 mmHg (35-45); ARTERIAL BLOOD GAS pH 7.32 (7.35-7.45)
[2019-02-04 13:14] LABS: ARTERIAL BLOOD GAS PO2 72.4 mmHg (80-100)
[2019-02-04 13:15] LABS: CARBOXYHEMOGLOBIN < 0.5 % (0-2)
[2019-02-04 13:16] LABS: ALLENS TEST POSITIVE
[2019-02-04] MEDS ORDERED: DEXAMETHASONE SOD PHOSPHATE 10 MG/1 ML VIAL IVPUSH ONE (13:31)
[2019-02-04] MEDS ORDERED: ACETAMINOPHEN 1000 MG/100 ML VIAL (NON FORMULARY) IVPB ONE (13:31)
[2019-02-04 13:32] LABS: BASO % 0.5 % (0-2.0); EOS % 7.7 % (0-4.5); HEMATOCRIT 47.1 % (32.4-45.2); HEMOGLOBIN 15.6 GM/dL (10.7-15.3); LYMPH % 14.4 % (8-40); MCH 28.1 pg (25.7-33.7); MCHC 33.1 g/dl (32.0-36.0); MEAN CELL VOLUME 84.9 fl (80-96); MEAN PLT VOLUME 9.1 fl (7.5-11.1); MONO % 7.1 % (3.8-10.2); NEUT % 70.3 % (42.8-82.8); PLATELET COUNT 362 K/MM3 (134-434); RBC 5.54 M/mm3 (3.60-5.2); RDW 15.2 % (11.6-15.6); WHITE BLOOD COUNT 8.6 K/mm3 (4.0-10.0)
[2019-02-04] MEDS ORDERED: MAGNESIUM SULF 50% (8.12 MEQ/2 ML-1 GM VIAL) IVPB ONE (13:32)
--- NOTE | 2019-02-04 13:32 | PDOC ---
Documentation entered by Anitra Dang SCRIBE, acting as scribe for Samir Chandra MD. Samir Chandra MD: This documentation has been prepared by the [place] Adrianna, SCRIBE, under my direction and personally reviewed by me in its entirety. I confirm that the documentation accurately reflects all work, treatment, procedures, and medical decision making performed by me. Attending Attestation - Resident Resident Name: Lacy,Terry - ED Attending Attestation I have performed the following: I have examined & evaluated the patient, The case was reviewed & discussed with the resident, I agree w/resident's findings & plan, Exceptions are as noted - HPI HPI: The patient is a 38 year old female, with a significant PMH of microcephaly, CAD , epilepsy, quadriplegia, scoliosis, developmental delay, and asthma, who presents to the ED [facility] from [place] for evaluation of respiratory distress. Patient was having difficulty breathing with audible wheezing, hypoxia, and cough. Patient was given 2 duonebs and solumedrol by EMS prior to arrival. In ED , history is limited as due to clinical status. Allergies: NKA, NKDA Surgical History: Cholecystectomy Social History: Developmental delay - Physicial Exam PE: 02/04/19 13:27 GENERAL: Awake, in respiratory distress EYES: PERRLA, sclera anicteric, conjunctiva clear ENT: bipap in place NECK: large hypertrophic scars over anterior neck LUNGS: Diminished BS L>R, no crackles or rales, minimal wheezing. +accessory muscle use HEART: Tachycardic but regular to 140s, normal S1 and S2, no murmurs, rubs or gallops ABDOMEN: Soft, nontender, distended : +rectal prolapse and perirectal and perivaginal hypertrophic scarring EXTREMITIES: contracted x4 NEUROLOGICAL: Nonverbal SKIN: noted above - Medical Decision Making 02/04/19 13:13 38 F with PMH significant for asthma, developmental delay, non-verbal, and microcephaly who presents today with an asthma exacerbation and respiratory distress. Pt also rectal temp 100.5, tachycardic to 140s. BP 140/100. On exam, diminished air movement diffusely L>R, +accessory muscle use and increased WOB Sepsis w/u initiated, pt placed on bipap, pre-bipap ABG pending WIll rpt in 1hr Anticipate ICU admission 02/04/19 15:58 WOB much improved on bipap Labs wnl Unable to place DERICK sales consulted Pt covered with vanc/daxa (previous Ucx with resistance to zosyn) empirically PT to be admitted to ICU Heart Score/ECG Review #1 02/04/19 13:30 Twelve-lead EKG was performed and reviewed by me. Sinus tachycardia, rate 135. Normal axis. No ST elevations. ED Treatment Course - LABORATORY CBC & Chemistry Diagram: 02/04/19 12:57 02/04/19 12:57 - ADDITIONAL ORDERS Additional order review: Laboratory Results 02/04/19 13:00 Anticoagulation Therapy No Result Required. Puncture Site No Result Required. ABG pH 7.32 L ABG pCO2 at Pt Temp 40.1 ABG pO2 at Pt Temp 72.4 L ABG HCO3 20.0 L ABG O2 Sat (Measured) 91.3 L ABG O2 Content No Result Required. ABG Base Excess -5.4 L Don Test Positive Carboxyhemoglobin < 0.5 Methemoglobin < 1.0 O2 Delivery Device No Result Required. Oxygen Flow Rate 6l Vent Mode No Result Required. Vent Rate No Result Required. Mechanical Rate No Result Required. Pressure Support Vent No Result Required. - RADIOLOGY Radiograph Interpretation: EXAM#: TYPE/EXAM: RESULT: [id number] RAD/CHEST X-RAY PORTABLE* Chest: Sepsis Impression: No acute chest pathology. Scoliosis with spinal support hardware. Reported By: Chuck Rodarte MD 02/04/19 13:07
[2019-02-04] MEDS ORDERED: ACETAMINOPHEN INJECTION 100 ML IVPB ONE (13:39)
[2019-02-04 13:49] LABS: ALBUMIN 3.8 g/dl (3.4-5.0); BILIRUBIN,TOTAL 0.2 mg/dL (0.2-1); BLOOD UREA NITROGEN 14.6 mg/dL (7-18); CALCIUM 9.8 mg/dL (8.5-10.1); CREATININE 0.5 mg/dL (0.55-1.3); POTASSIUM 4.4 mmol/L (3.5-5.1); TOT PROT 8.5 g/dl (6.4-8.2)
[2019-02-04 13:56] LABS: INR 1.05 (0.83-1.09); PROTHROMBIN TIME (PATIENT) 12.4 SEC (9.7-13.0)
[2019-02-04] MEDS ORDERED: SODIUM CHLORIDE 500 ML IV STA (14:17)
[2019-02-04 15:00] LABS: ARTERIAL BLD GAS O2 SATURATION 94.8 % (95-98); ARTERIAL BLOOD GAS BASE EXCESS -1.6 meq/l (-2-2); ARTERIAL BLOOD GAS PCO2 37.3 mmHg (35-45); ARTERIAL BLOOD GAS PO2 78.2 mmHg (80-100)
[2019-02-04 15:01] LABS: ALLENS TEST POSITIVE; CARBOXYHEMOGLOBIN 0.5 % (0-2)
[2019-02-04] MEDS ORDERED: VANCOMYCIN 1 GM in D5W (PRE-DOCKED) 1,000 MG/250 ML IVPB ONE (15:36)
[2019-02-04] MEDS ORDERED: MEROPENEM 1 GM in DEXTROSE 5%-WATER 100 ML IVPB ONE (15:37)
[2019-02-04] MEDS ORDERED: VANCOMYCIN 1 GRAM (PRE-DOCKED) 1,000 MG/250 ML BAG IVPB ONE (15:42)
--- NOTE | 2019-02-04 16:11 | CONSULT ---
Consultation: HISTORY OF PRESENT ILLNESS: The patient is a 38 year old female with a PMH of microcephaly, developmental delay, epilepsy, quadriplegia, scoliosis, and multiple admissions to our ED for asthma requiring BiPap who was BIBA to the ED earlier today for respiratory distress. As per aide @ bedside patient was noted to have audible wheezing, hypoxia and cough earlier today and 911 was called. S/p Duonebs x2 and Solumedrol by EMS in the field. While in the ED patient was tachycardic to the 140's, rectal temp 100.5 using accessory muscles and was noted to have increased work of breathing. Patient currently on BiLevel with pre-BiPap ABG showing hypoxic respiratory acidosis. CXR negative for acute pathology. EKG w/o acute ischemic changes. Catheter placed by urology 2/2 to patient vulvar keloids. REVIEW OF SYSTEMS: Unable to obtain 2/2 to patient's clinical condition. PHYSICAL EXAMINATION General: @ baseline MS Respiratory: on BiPAP, no accessory muscle use, non-labored respirations HEENT: multiple keloids along R jawline, neck, EOMI, PEERLA Abdomen: soft, (+) bowel sounds, G tube intact : Vulvar keloids Extremity: 2+ DP pulses, severely contracted upper extremities Vital Signs - 24 hr 02/04/19 02/04/19 02/04/19 13:00 13:27 13:55 Temperature 100.5 F H 100.5 F H 99.7 F H Pulse Rate 135 H 132 H Pulse Rate [ 130 H Apical] Respiratory 44 H 20 Rate Blood Pressure 140/100 Blood Pressure 134/85 [Right Arm] O2 Sat by Pulse 84 L 97 Oximetry (%) 02/04/19 02/04/19 15:30 16:01 Temperature Pulse Rate Pulse Rate [ 105 H Apical] Respiratory 16 Rate Blood Pressure Blood Pressure 124/78 [Right Arm] O2 Sat by Pulse 98 99 Oximetry (%) Laboratory Results - last 24 hr 02/04/19 02/04/19 02/04/19 12:57 12:57 12:57 WBC 8.6 RBC 5.54 H Hgb 15.6 H Hct 47.1 H MCV 84.9 MCH 28.1 MCHC 33.1 RDW 15.2 Plt Count 362 D MPV 9.1 Absolute Neuts (auto) 6.1 Neutrophils % 70.3 Lymphocytes % 14.4 Monocytes % 7.1 Eosinophils % 7.7 H D Basophils % 0.5 Nucleated RBC % 0 PT with INR INR PTT (Actin FS) 33.9 Anticoagulation Therapy Puncture Site Patient Temperature ABG pH ABG pCO2 at Pt Temp ABG pO2 at Pt Temp ABG HCO3 ABG O2 Sat (Measured) ABG O2 Content ABG Base Excess Don Test Carboxyhemoglobin Methemoglobin O2 Delivery Device Oxygen Flow Rate Vent Mode Vent Rate Mechanical Rate PEEP Pressure Support Vent Sodium Potassium Chloride Carbon Dioxide Anion Gap BUN Creatinine Est GFR (CKD-EPI)AfAm Est GFR (CKD-EPI)NonAf Random Glucose Lactic Acid Calcium Total Bilirubin AST ALT Alkaline Phosphatase Troponin I < 0.02 Total Protein Albumin 02/04/19 02/04/19 02/04/19 12:57 12:57 12:57 WBC RBC Hgb Hct MCV MCH MCHC RDW Plt Count MPV Absolute Neuts (auto) Neutrophils % Lymphocytes % Monocytes % Eosinophils % Basophils % Nucleated RBC % PT with INR 12.40 INR 1.05 PTT (Actin FS) Anticoagulation Therapy Puncture Site Patient Temperature ABG pH ABG pCO2 at Pt Temp ABG pO2 at Pt Temp ABG HCO3 ABG O2 Sat (Measured) ABG O2 Content ABG Base Excess Don Test Carboxyhemoglobin Methemoglobin O2 Delivery Device Oxygen Flow Rate Vent Mode Vent Rate Mechanical Rate PEEP Pressure Support Vent Sodium 138 Potassium 4.4 Chloride 103 Carbon Dioxide 25 Anion Gap 10 BUN 14.6 Creatinine 0.5 L Est GFR (CKD-EPI)AfAm 142.30 Est GFR (CKD-EPI)NonAf 122.78 Random Glucose 122 H Lactic Acid 1.4 Calcium 9.8 Total Bilirubin 0.2 AST 19 ALT 25 Alkaline Phosphatase 98 Troponin I Total Protein 8.5 H Albumin 3.8 02/04/19 02/04/19 02/04/19 13:00 14:18 14:20 WBC RBC Hgb Hct MCV MCH MCHC RDW Plt Count MPV Absolute Neuts (auto) Neutrophils % Lymphocytes % Monocytes % Eosinophils % Basophils % Nucleated RBC % PT with INR INR PTT (Actin FS) Anticoagulation Therapy No Result Required. No Result Required. Cancelled Puncture Site No Result Required. Right radial Cancelled Patient Temperature Cancelled ABG pH 7.32 L 7.30 L Cancelled ABG pCO2 at Pt Temp 40.1 37.3 Cancelled ABG pO2 at Pt Temp 72.4 L 78.2 L Cancelled ABG HCO3 20.0 L 22.3 Cancelled ABG O2 Sat (Measured) 91.3 L 94.8 L Cancelled ABG O2 Content No Result Required. 19.2 Cancelled ABG Base Excess -5.4 L -1.6 Cancelled Don Test Positive Positive Cancelled Carboxyhemoglobin < 0.5 0.5 Methemoglobin < 1.0 < 1.0 O2 Delivery Device No Result Required. No Result Required. Cancelled Oxygen Flow Rate 6l Yes Cancelled Vent Mode No Result Required. No Result Required. Cancelled Vent Rate No Result Required. No Result Required. Cancelled Mechanical Rate No Result Required. No Result Required. Cancelled PEEP Cancelled Pressure Support Vent No Result Required. No Result Required. Cancelled Sodium Potassium Chloride Carbon Dioxide Anion Gap BUN Creatinine Est GFR (CKD-EPI)AfAm Est GFR (CKD-EPI)NonAf Random Glucose Lactic Acid Calcium Total Bilirubin AST ALT Alkaline Phosphatase Troponin I Total Protein Albumin ASSESSMENT/PLAN: Sepsis Acute Hypoxic Respiratory Distress R/O Viral Infection, UTI NEURO - Patient @ baseline - Continue home Phenobarbital RESPIRATORY # Acute Hypoxic Respiratory Distress - Etiologies including Asthma exacerbation vs. Viral infection vs. RSV - RSV swab pending - Repeat ABG to monitor for worsening hypoxia and low threshold for intubation - DuoNebs QID - Albuterol Q6H PRN - Continue home Symbicort, Advair - Aspiration precautions including elevated HOB CARDIAC - Sinus Tachycardia (improving 130's - low 100's) - Etiology includings viral infection vs. increased WOB - EKG shows no CORTNEY/STD INFECTIOUS DISEASE - Febrile @ presentation 100.5 - Etiology includes viral infection vs. UTI vs. PNA (less likely) - S/p Tylenol - No leukocytosis - UA/Urine Cx pending - Continue to monitor F/E/N Gentle IV hydration w/NS @ 42 mL/hr Monitor electrolytes Nutrition: Resume tube feeds tomorrow DISPOSITION: Patient requires ICU level of care 2/2 to sepsis + acute hypoxic respiratory distress, close monitoring of respiratory status with low threshold for intubation Visit type - Emergency Visit Emergency Visit: Yes ED Registration Date: 02/04/19 Care time: The patient presented to the Emergency Department on the above date and was hospitalized for further evaluation of their emergent condition. - New Patient This patient is new to me today: Yes Date on this admission: 02/04/19 - Critical Care Critical Care patient: Yes Total Critical Care Time (in minutes): 20 ATTENDING PHYSICIAN STATEMENT I saw and evaluated the patient. I reviewed the resident's note and discussed the case with the resident. I agree with the resident's findings and plan as documented. SUBJECTIVE: OBJECTIVE: ASSESSMENT AND PLAN:
--- NOTE | 2019-02-04 16:54 | CON.GU ---
Consult Consult Specialty:: Reason for Consultation:: henrry - History of Present Illness Chief Complaint: SOB History of Present Illness: 38 year old female, with a significant PMH of microcephaly, CAD, epilepsy, quadriplegia, scoliosis, developmental delay, and asthma, who presents to the ED [facility] from [place] for evaluation of respiratory distress. Patient was having difficulty breathing with audible wheezing, hypoxia, and cough. Patient was given 2 duonebs and solumedrol by EMS prior to arrival. In ED, history is limited as due to clinical status. 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: Seizure, Other (microcephaly, congental quadraplegia ) Pulmonary: Yes: Asthma, Pneumonia (with chest tube insertion for right hydrothorax) Dermatology: Yes: Other (keloid-right neck with recurrent infections) - Past Surgical History Past Surgical History: Yes: Appendectomy, Cholecystectomy - Alcohol/Substance Use Hx Alcohol Use: No - Smoking History Smoking history: Never smoked Have you smoked in the past 12 months: No Home Medications - Allergies Allergies/Adverse Reactions: Allergies Allergy/AdvReac Type Severity Reaction Status Date / Time No Known Allergies Allergy Verified 12/23/18 05:54 - Home Medications Home Medications: Ambulatory Orders Acetaminophen Oral Solution [Tylenol 160mg/5mL Oral Solution -] 650 mg GT Q6H PRN 08/08/18 Baclofen 20 mg GT BID 08/08/18 Budesonide/Formeterol Fumarate [SYMBICORT 80/4.5mcg -] 2 inh PO BID 08/08/18 Calcium Carbonate/Vitamin D3 [Oyster Shell 500-Vit D3 200 Pk] 1 each GT BID Clotrimazole 45 appful TD BID 08/08/18 Hydrocortisone 1% Cream [Hytone 1% Cream -] 1 applic TP BID 08/08/18 Ipratropium/Albuterol Sulfate [Iprat-Albut 0.5-3(2.5) mg/3 ml] 3 ml IH QID 08/08 Magnesium Hydrox 2400MG/30Ml [Milk of Magnesia -] 30 ml GT HS 08/08/18 Montelukast Na [Singulair -] 10 mg GT HS 08/08/18 Multivit-Min/FA/Lycopen/Lutein [Vitrum 50 Plus Senior Tablet] 1 each GT DAILY Phenobarbital 32.4 mg GT ASDIR 08/08/18 Phenobarbital 64.8 mg GT HS 08/08/18 Albuterol 0.083% Nebulizer Kathleen [Ventolin 0.083% Nebulizer Soln -] 1 amp NEB Q4H PRN #7 vial 12/25/18 Lactose-Reduced Food/Fiber [Jevity 1.5 Del Liquid] 1,000 ml GT ASDIR 02/04/19 Physical Exam- Vital Signs: Vital Signs Temperature 99.7 F H 02/04/19 13:55 Pulse Rate 105 H 02/04/19 16:01 Respiratory Rate 16 02/04/19 16:01 Blood Pressure 124/78 02/04/19 16:01 O2 Sat by Pulse Oximetry (%) 99 02/04/19 16:01 Renal/: No: Bladder Distention Pelvis: Yes: Bladder Non Palpable External Genitalia: Yes: Lesion, Other (keloid formation labia majora) Labs: CBC, BMP 02/04/19 12:57 02/04/19 12:57 Problem List - Problems (1) Urinary retention with incomplete bladder emptying Assessment/Plan: 16 fr sales inserted w diff, Ur cx sent, cont iv abxs, consider renal u/s Code(s): R33.9 - RETENTION OF URINE, UNSPECIFIED (2) Acute respiratory failure Code(s): J96.00 - ACUTE RESPIRATORY FAILURE, UNSP W HYPOXIA OR HYPERCAPNIA Qualifiers: Respiratory failure complication: hypoxia Qualified Code(s): J96.01 - Acute respiratory failure with hypoxia (3) Elevated lactic acid level Code(s): E87.2 - ACIDOSIS
--- NOTE | 2019-02-04 16:59 | EKG ---
Test Reason : Blood Pressure : / mmHG Vent. Rate : 135 BPM Atrial Rate : 135 BPM P-R Int : 120 ms QRS Dur : 054 ms QT Int : 374 ms P-R-T Axes : 071 079 075 degrees QTc Int : 561 ms POOR DATA QUALITY, INTERPRETATION MAY BE ADVERSELY AFFECTED SINUS TACHYCARDIA NONSPECIFIC ST AND T WAVE ABNORMALITY ABNORMAL ECG WHEN COMPARED WITH ECG OF 22-DEC-2018 22:30, CRITERIA FOR SEPTAL INFARCT ARE NO LONGER PRESENT Confirmed by YARED ZALDIVAR MD ([id number]) on 02/04/2019 4:58:48 PM Referred By: Confirmed By:YARED ZALDIVAR MD
[2019-02-04] MEDS ORDERED: MEROPENEM 1 GM VIAL (RESTRICTED TO ID) IVPB ONE ×2 (17:04→17:35)
--- NOTE | 2019-02-04 18:07 | HP ---
CHIEF COMPLAINT:wheezing and hypoxia PCP:dr. katja asher ([place]) HISTORY OF PRESENT ILLNESS: 38 y/o female with PMH of asthma, severe intellectual disabilities, quadraplegia , seizure, scoliosis, microcephaly, GERD, keloids, was sent to the ED after being found to have audible wheezing and was saturating in the low 90's on room air, with no response to nebulizer treatment times two. as per [place] facility , she had not been having any fevers or nausea/vomittng or any other symptoms leading up to todays event- of note, she was here about a month ago for aspiration PNA and asthma exacerbation and was sent home with a predinisone taper. En rute to the ED, ems gave another two nebulizer treatments in addition to solumedrol ER course was notable for: (1)initial vitals: t 100.5, HR 130, RR 44, 84% RA- shortly after placed on BIPAP (2)ABG Ph 7.32, Co2 37; other labs wnl ; UA pending; lactic acid 1.4 (3)CXR negative for any acute chest pathology; catheter placed by dr. kim due to extensive keloids (4) given vanc and meropenem Recent Travel: PAST MEDICAL HISTORY: see above PAST SURGICAL HISTORY: Social History:UNABLE TO OBTAIN PATIENT IS NON-VERBAL Smoking: Alcohol: Drugs: Family History:UNABLE TO OBTAIN PATIENT IS NON-VERBAL Allergies No Known Allergies Allergy (Verified 12/23/18 05:54) HOME MEDICATIONS: Home Medications Medication Instructions Recorded Acetaminophen Oral Solution 650 mg GT Q6H PRN 08/08/18 [Tylenol 160mg/5mL Oral Solution -] Baclofen 20 mg GT BID 08/08/18 Budesonide/Formeterol Fumarate 2 inh PO BID 08/08/18 [SYMBICORT 80/4.5mcg -] Calcium Carbonate/Vitamin D3 1 each GT BID 08/08/18 [Oyster Shell 500-Vit D3 200 Pk] Clotrimazole 45 appful TD BID 08/08/18 Hydrocortisone 1% Cream [Hytone 1% 1 applic TP BID 08/08/18 Cream -] Ipratropium/Albuterol Sulfate 3 ml IH QID 08/08/18 [Iprat-Albut 0.5-3(2.5) mg/3 ml] Magnesium Hydrox 2400MG/30Ml [Milk 30 ml GT HS 08/08/18 of Magnesia -] Montelukast Na [Singulair -] 10 mg GT HS 08/08/18 Multivit-Min/FA/Lycopen/Lutein 1 each GT DAILY 08/08/18 [Vitrum 50 Plus Senior Tablet] Phenobarbital 32.4 mg GT ASDIR 08/08/18 Phenobarbital 64.8 mg GT HS 08/08/18 Albuterol 0.083% Nebulizer Kathleen 1 amp NEB Q4H PRN #7 vial 12/25/18 [Ventolin 0.083% Nebulizer Soln -] Lactose-Reduced Food/Fiber [Jevity 1,000 ml GT ASDIR 02/04/19 1.5 Del Liquid] REVIEW OF SYSTEMS (unable to obtain as patient is non-verbal) CONSTITUTIONAL: Absent: fever, chills, diaphoresis, generalized weakness, malaise, loss of appetite, weight change HEENT: Absent: rhinorrhea, nasal congestion, throat pain, throat swelling, difficulty swallowing, mouth swelling, ear pain, eye pain, visual changes CARDIOVASCULAR: Absent: chest pain, syncope, palpitations, irregular heart rate, lightheadedness , peripheral edema RESPIRATORY: Absent: cough, shortness of breath, dyspnea with exertion, orthopnea, wheezing, stridor, hemoptysis GASTROINTESTINAL: Absent: abdominal pain, abdominal distension, nausea, vomiting, diarrhea, constipation, melena, hematochezia GENITOURINARY: Absent: dysuria, frequency, urgency, hesitancy, hematuria, flank pain, genital pain MUSCULOSKELETAL: Absent: myalgia, arthralgia, joint swelling, back pain, neck pain SKIN: Absent: rash, itching, pallor HEMATOLOGIC/IMMUNOLOGIC: Absent: easy bleeding, easy bruising, lymphadenopathy, frequent infections ENDOCRINE: Absent: unexplained weight gain, unexplained weight loss, heat intolerance, cold intolerance NEUROLOGIC: Absent: headache, focal weakness or paresthesias, dizziness, unsteady gait, seizure, mental status changes, bladder or bowel incontinence PSYCHIATRIC: Absent: anxiety, depression, suicidal or homicidal ideation, hallucinations. PHYSICAL EXAMINATION Vital Signs - 24 hr 02/04/19 02/04/19 02/04/19 13:00 13:27 13:55 Temperature 100.5 F H 100.5 F H 99.7 F H Pulse Rate 135 H 132 H Pulse Rate [ 130 H Apical] Respiratory 44 H 20 Rate Blood Pressure 140/100 Blood Pressure 134/85 [Right Arm] O2 Sat by Pulse 84 L 97 Oximetry (%) 02/04/19 02/04/19 15:30 16:01 Temperature Pulse Rate Pulse Rate [ 105 H Apical] Respiratory 16 Rate Blood Pressure Blood Pressure 124/78 [Right Arm] O2 Sat by Pulse 98 99 Oximetry (%) GENERAL: Awake, alert, wearing BIPAP,no longer in respiratory distress. HEENT: extensive keloids on upper neck EYES: PEERLA; EOMI: no scleral icterus . NECK: no JVD; no lymphadenopathy LUNGS: diminshed breath sounds; however no audible rales/rhonchi or wheezing HEART: tachycardic; s1/s2; no murmurs rubs/gallops ABDOMEN: Soft, no wincing upon palpation; +BS in all 4 quadrants; G tube in place EXTREMITIES: warm; well-perfused no clubbing/cyanosis or edema both extremities contracted SKIN: Warm, dry, normal turgor, no rashes or lesions noted, normal capillary refill. Laboratory Results - last 24 hr 02/04/19 02/04/19 02/04/19 12:57 12:57 12:57 WBC 8.6 RBC 5.54 H Hgb 15.6 H Hct 47.1 H MCV 84.9 MCH 28.1 MCHC 33.1 RDW 15.2 Plt Count 362 D MPV 9.1 Absolute Neuts (auto) 6.1 Neutrophils % 70.3 Lymphocytes % 14.4 Monocytes % 7.1 Eosinophils % 7.7 H D Basophils % 0.5 Nucleated RBC % 0 PT with INR INR PTT (Actin FS) 33.9 Anticoagulation Therapy Puncture Site Patient Temperature ABG pH ABG pCO2 at Pt Temp ABG pO2 at Pt Temp ABG HCO3 ABG O2 Sat (Measured) ABG O2 Content ABG Base Excess Don Test Carboxyhemoglobin Methemoglobin O2 Delivery Device Oxygen Flow Rate Vent Mode Vent Rate Mechanical Rate PEEP Pressure Support Vent Sodium Potassium Chloride Carbon Dioxide Anion Gap BUN Creatinine Est GFR (CKD-EPI)AfAm Est GFR (CKD-EPI)NonAf Random Glucose Lactic Acid Calcium Total Bilirubin AST ALT Alkaline Phosphatase Troponin I < 0.02 Total Protein Albumin 02/04/19 02/04/19 02/04/19 12:57 12:57 12:57 WBC RBC Hgb Hct MCV MCH MCHC RDW Plt Count MPV Absolute Neuts (auto) Neutrophils % Lymphocytes % Monocytes % Eosinophils % Basophils % Nucleated RBC % PT with INR 12.40 INR 1.05 PTT (Actin FS) Anticoagulation Therapy Puncture Site Patient Temperature ABG pH ABG pCO2 at Pt Temp ABG pO2 at Pt Temp ABG HCO3 ABG O2 Sat (Measured) ABG O2 Content ABG Base Excess Don Test Carboxyhemoglobin Methemoglobin O2 Delivery Device Oxygen Flow Rate Vent Mode Vent Rate Mechanical Rate PEEP Pressure Support Vent Sodium 138 Potassium 4.4 Chloride 103 Carbon Dioxide 25 Anion Gap 10 BUN 14.6 Creatinine 0.5 L Est GFR (CKD-EPI)AfAm 142.30 Est GFR (CKD-EPI)NonAf 122.78 Random Glucose 122 H Lactic Acid 1.4 Calcium 9.8 Total Bilirubin 0.2 AST 19 ALT 25 Alkaline Phosphatase 98 Troponin I Total Protein 8.5 H Albumin 3.8 02/04/19 02/04/19 02/04/19 13:00 14:18 14:20 WBC RBC Hgb Hct MCV MCH MCHC RDW Plt Count MPV Absolute Neuts (auto) Neutrophils % Lymphocytes % Monocytes % Eosinophils % Basophils % Nucleated RBC % PT with INR INR PTT (Actin FS) Anticoagulation Therapy No Result Required. No Result Required. Cancelled Puncture Site No Result Required. Right radial Cancelled Patient Temperature Cancelled ABG pH 7.32 L 7.30 L Cancelled ABG pCO2 at Pt Temp 40.1 37.3 Cancelled ABG pO2 at Pt Temp 72.4 L 78.2 L Cancelled ABG HCO3 20.0 L 22.3 Cancelled ABG O2 Sat (Measured) 91.3 L 94.8 L Cancelled ABG O2 Content No Result Required. 19.2 Cancelled ABG Base Excess -5.4 L -1.6 Cancelled Don Test Positive Positive Cancelled Carboxyhemoglobin < 0.5 0.5 Methemoglobin < 1.0 < 1.0 O2 Delivery Device No Result Required. No Result Required. Cancelled Oxygen Flow Rate 6l Yes Cancelled Vent Mode No Result Required. No Result Required. Cancelled Vent Rate No Result Required. No Result Required. Cancelled Mechanical Rate No Result Required. No Result Required. Cancelled PEEP Cancelled Pressure Support Vent No Result Required. No Result Required. Cancelled Sodium Potassium Chloride Carbon Dioxide Anion Gap BUN Creatinine Est GFR (CKD-EPI)AfAm Est GFR (CKD-EPI)NonAf Random Glucose Lactic Acid Calcium Total Bilirubin AST ALT Alkaline Phosphatase Troponin I Total Protein Albumin ASSESSMENT/PLAN: 38 y/o female with PMH of asthma, severe intellectual disabilities, quadraplegia , seizure, scoliosis, microcephaly, GERD, keloids, was sent to the ED after being found to have audible wheezing and was saturating in the low 90's on room air, with no response to nebulizer treatment times two. #Acute Hypoxic Respiratory failure likely 2/2 an acute asthma exacerbation -already received solumedrol and duonebs X 5 -will c/w solumedrol 40q8H -duonebs PRN -albuterol PRN -c/w symbicort and singulair -BIPAP as needed -ICU monitoring -monitor o2 saturations -holding tube feeds at the moment -will hold off giving anymore abx at the moment #Seizure -will c/w phenobarbital #Keloids on skin c/w topical cream F/E/N NS @42mls/hr monitor electrolytes will resume tube feeds in AM dvt ppx: lovenox Problem List - Problem (1) Acute respiratory failure Code(s): J96.00 - ACUTE RESPIRATORY FAILURE, UNSP W HYPOXIA OR HYPERCAPNIA Qualifiers: Respiratory failure complication: hypoxia Qualified Code(s): J96.01 - Acute respiratory failure with hypoxia (2) Asthma exacerbation Code(s): J45.901 - UNSPECIFIED ASTHMA WITH (ACUTE) EXACERBATION Qualifiers: Asthma severity: moderate Asthma persistence: unspecified Qualified Code( s): J45.901 - Unspecified asthma with (acute) exacerbation Visit type - Emergency Visit Emergency Visit: Yes Care time: The patient presented to the Emergency Department on the above date and was hospitalized for further evaluation of their emergent condition. - New Patient This patient is new to me today: Yes Date on this admission: 02/04/19 - Critical Care Critical Care patient: Yes Total Critical Care Time (in minutes): 35 Critical Care Statement: The care of this patient involved high complexity decision making to prevent further life threatening deterioration of the patient 's condition and/or to evaluate & treat vital organ system(s) failure or risk of failure. ATTENDING PHYSICIAN STATEMENT I saw and evaluated the patient. I reviewed the resident's note and discussed the case with the resident. I agree with the resident's findings and plan as documented. SUBJECTIVE: OBJECTIVE: ASSESSMENT AND PLAN:
[2019-02-04] MEDS ORDERED: ALBUTEROL SO4 0.083% IH SOL 2.5 MG/3 ML VIAL.NEB. NEB PRN (18:11)
[2019-02-04 18:27] LABS: PH,URINE 5.5 (5.0-8.0); URINE APPEARANCE CLEAR; URINE BILIRUBIN NEGATIVE (NEGATIVE); URINE COLOR YELLOW; URINE GLUCOSE (UA) NEGATIVE (NEGATIVE); URINE KETONE NEGATIVE (NEGATIVE); URINE LEUK ESTERASE NEGATIVE (NEGATIVE); URINE NITRITE NEGATIVE (NEGATIVE); URINE PROTEIN NEGATIVE (NEGATIVE); URINE UROBILINOGEN 0.2 mg/dL (0.2-1.0)
[2019-02-04] MEDS ORDERED: SODIUM CHLORIDE 1,000 ML IV SCH (18:30)
[2019-02-04] MEDS: methylPREDNISolone NA SUCC 40 MG/1 ML VIAL IVPUSH SCH (19:23)
[2019-02-04] MEDS: ALBUTEROL SO4 2.5/IPRATROPIUM 0.5 INH SOL 3 ML VIAL.NEB. NEB SCH (19:23)
[2019-02-04] MEDS ORDERED: ALBUTEROL SO4 2.5/IPRATROPIUM 0.5 INH SOL 3 ML VIAL.NEB. NEB SCH (20:00)
--- NOTE | 2019-02-04 20:59 | PN ---
Teaching Attending Note Name of Resident: Geno Hedrick ATTENDING PHYSICIAN STATEMENT I saw and evaluated the patient. I reviewed the resident's note and discussed the case with the resident. I agree with the resident's findings and plan as documented. SUBJECTIVE: This is a 38 year old woman with a history of asthma, seizure disorder, scoliosis, microcephaly, developmental delay, quadriplegia, GERD, keloids who was sent to the ED from [facility] because of wheezing that did not respond to nebulizer treatments. No fever or vomiting was noted at the facility. OBJECTIVE: Vital Signs Period Temp Pulse Resp BP Sys/Holley Pulse Ox Last 24 Hr 99.7 F-100.5 F 102-135 16-44 120-140/78-100 84-100 HEART: S1S2, tachycardic LUNGS: Clear with decreased BS ABDOMEN: Soft, non-distended, normal BS, PEG site clean EXTREMITIES: Contracted, no edema Laboratory Tests 02/04/19 02/04/19 02/04/19 12:57 12:57 12:57 WBC 8.6 RBC 5.54 H Hgb 15.6 H Hct 47.1 H MCV 84.9 MCH 28.1 MCHC 33.1 RDW 15.2 Plt Count 362 D MPV 9.1 Absolute Neuts (auto) 6.1 Neutrophils % 70.3 Lymphocytes % 14.4 Monocytes % 7.1 Eosinophils % 7.7 H D Basophils % 0.5 Nucleated RBC % 0 PT with INR INR PTT (Actin FS) 33.9 Anticoagulation Therapy Puncture Site Patient Temperature ABG pH ABG pCO2 at Pt Temp ABG pO2 at Pt Temp ABG HCO3 ABG O2 Sat (Measured) ABG O2 Content ABG Base Excess Don Test Carboxyhemoglobin Methemoglobin O2 Delivery Device Oxygen Flow Rate Vent Mode Vent Rate Mechanical Rate PEEP Pressure Support Vent Sodium Potassium Chloride Carbon Dioxide Anion Gap BUN Creatinine Est GFR (CKD-EPI)AfAm Est GFR (CKD-EPI)NonAf Random Glucose Lactic Acid Calcium Total Bilirubin AST ALT Alkaline Phosphatase Troponin I < 0.02 Total Protein Albumin Urine Color Urine Appearance Urine pH Ur Specific [place] Urine Protein Urine Glucose (UA) Urine Ketones Urine Blood Urine Nitrite Urine Bilirubin Urine Urobilinogen Ur Leukocyte Esterase 02/04/19 02/04/19 02/04/19 12:57 12:57 12:57 WBC RBC Hgb Hct MCV MCH MCHC RDW Plt Count MPV Absolute Neuts (auto) Neutrophils % Lymphocytes % Monocytes % Eosinophils % Basophils % Nucleated RBC % PT with INR 12.40 INR 1.05 PTT (Actin FS) Anticoagulation Therapy Puncture Site Patient Temperature ABG pH ABG pCO2 at Pt Temp ABG pO2 at Pt Temp ABG HCO3 ABG O2 Sat (Measured) ABG O2 Content ABG Base Excess Don Test Carboxyhemoglobin Methemoglobin O2 Delivery Device Oxygen Flow Rate Vent Mode Vent Rate Mechanical Rate PEEP Pressure Support Vent Sodium 138 Potassium 4.4 Chloride 103 Carbon Dioxide 25 Anion Gap 10 BUN 14.6 Creatinine 0.5 L Est GFR (CKD-EPI)AfAm 142.30 Est GFR (CKD-EPI)NonAf 122.78 Random Glucose 122 H Lactic Acid 1.4 Calcium 9.8 Total Bilirubin 0.2 AST 19 ALT 25 Alkaline Phosphatase 98 Troponin I Total Protein 8.5 H Albumin 3.8 Urine Color Urine Appearance Urine pH Ur Specific [place] Urine Protein Urine Glucose (UA) Urine Ketones Urine Blood Urine Nitrite Urine Bilirubin Urine Urobilinogen Ur Leukocyte Esterase 02/04/19 02/04/19 02/04/19 13:00 14:18 14:20 WBC RBC Hgb Hct MCV MCH MCHC RDW Plt Count MPV Absolute Neuts (auto) Neutrophils % Lymphocytes % Monocytes % Eosinophils % Basophils % Nucleated RBC % PT with INR INR PTT (Actin FS) Anticoagulation Therapy No Result Required. No Result Required. Cancelled Puncture Site No Result Required. Right radial Cancelled Patient Temperature Cancelled ABG pH 7.32 L 7.30 L Cancelled ABG pCO2 at Pt Temp 40.1 37.3 Cancelled ABG pO2 at Pt Temp 72.4 L 78.2 L Cancelled ABG HCO3 20.0 L 22.3 Cancelled ABG O2 Sat (Measured) 91.3 L 94.8 L Cancelled ABG O2 Content No Result Required. 19.2 Cancelled ABG Base Excess -5.4 L -1.6 Cancelled Don Test Positive Positive Cancelled Carboxyhemoglobin < 0.5 0.5 Methemoglobin < 1.0 < 1.0 O2 Delivery Device No Result Required. No Result Required. Cancelled Oxygen Flow Rate 6l Yes Cancelled Vent Mode No Result Required. No Result Required. Cancelled Vent Rate No Result Required. No Result Required. Cancelled Mechanical Rate No Result Required. No Result Required. Cancelled PEEP Cancelled Pressure Support Vent No Result Required. No Result Required. Cancelled Sodium Potassium Chloride Carbon Dioxide Anion Gap BUN Creatinine Est GFR (CKD-EPI)AfAm Est GFR (CKD-EPI)NonAf Random Glucose Lactic Acid Calcium Total Bilirubin AST ALT Alkaline Phosphatase Troponin I Total Protein Albumin Urine Color Urine Appearance Urine pH Ur Specific [place] Urine Protein Urine Glucose (UA) Urine Ketones Urine Blood Urine Nitrite Urine Bilirubin Urine Urobilinogen Ur Leukocyte Esterase 02/04/19 02/04/19 18:00 18:01 WBC RBC Hgb Hct MCV MCH MCHC RDW Plt Count MPV Absolute Neuts (auto) Neutrophils % Lymphocytes % Monocytes % Eosinophils % Basophils % Nucleated RBC % PT with INR INR PTT (Actin FS) Anticoagulation Therapy Cancelled Puncture Site Cancelled Patient Temperature Cancelled ABG pH Cancelled ABG pCO2 at Pt Temp Cancelled ABG pO2 at Pt Temp Cancelled ABG HCO3 Cancelled ABG O2 Sat (Measured) Cancelled ABG O2 Content Cancelled ABG Base Excess Cancelled Don Test Cancelled Carboxyhemoglobin Methemoglobin O2 Delivery Device Cancelled Oxygen Flow Rate Cancelled Vent Mode Cancelled Vent Rate Cancelled Mechanical Rate Cancelled PEEP Cancelled Pressure Support Vent Cancelled Sodium Potassium Chloride Carbon Dioxide Anion Gap BUN Creatinine Est GFR (CKD-EPI)AfAm Est GFR (CKD-EPI)NonAf Random Glucose Lactic Acid Calcium Total Bilirubin AST ALT Alkaline Phosphatase Troponin I Total Protein Albumin Urine Color Yellow Urine Appearance Clear Urine pH 5.5 Ur Specific [place] 1.021 Urine Protein Negative Urine Glucose (UA) Negative Urine Ketones Negative Urine Blood Negative Urine Nitrite Negative Urine Bilirubin Negative Urine Urobilinogen 0.2 Ur Leukocyte Esterase Negative Home Medications Medication Instructions Recorded Acetaminophen Oral Solution 650 mg GT Q6H PRN 08/08/18 [Tylenol 160mg/5mL Oral Solution -] Baclofen 20 mg GT BID 08/08/18 Budesonide/Formeterol Fumarate 2 inh PO BID 08/08/18 [SYMBICORT 80/4.5mcg -] Calcium Carbonate/Vitamin D3 1 each GT BID 08/08/18 [Oyster Shell 500-Vit D3 200 Pk] Clotrimazole 45 appful TD BID 08/08/18 Hydrocortisone 1% Cream [Hytone 1% 1 applic TP BID 08/08/18 Cream -] Ipratropium/Albuterol Sulfate 3 ml IH QID 08/08/18 [Iprat-Albut 0.5-3(2.5) mg/3 ml] Magnesium Hydrox 2400MG/30Ml [Milk 30 ml GT HS 08/08/18 of Magnesia -] Montelukast Na [Singulair -] 10 mg GT HS 08/08/18 Multivit-Min/FA/Lycopen/Lutein 1 each GT DAILY 08/08/18 [Vitrum 50 Plus Senior Tablet] Phenobarbital 32.4 mg GT ASDIR 08/08/18 Phenobarbital 64.8 mg GT HS 08/08/18 Albuterol 0.083% Nebulizer Kathleen 1 amp NEB Q4H PRN #7 vial 12/25/18 [Ventolin 0.083% Nebulizer Soln -] Lactose-Reduced Food/Fiber [Jevity 1,000 ml GT ASDIR 02/04/19 1.5 Del Liquid] ASSESSMENT AND PLAN: This is a 38 year old woman with a history of asthma, seizure disorder, scoliosis, microcephaly, developmental delay, quadriplegia, GERD, keloids who presented to the ED from [facility] with wheezing. 1. Acute hypoxic respiratory failure secondary to asthma exacerbation - SoluMedrol, DuoNeb, Symbicort, Singulair, albuterol as needed - Oxygen to maintain saturation >90% 2. Microcephaly with developmental delay and quadriplegia 3. Seizure disorder - Continue Phenobarbital 4. Nutrition - Hold PEG feeds - will resume if no evidence of aspiration
[2019-02-04 21:24] LABS: VENOUS PH 7.38 (7.31-7.41)
[2019-02-04 21:26] LABS: VENOUS PO2 < 49 mmHg (28-48)
[2019-02-04] MEDS ORDERED: PHENobarbital 30 MG TABLET GT SCH (22:00)
[2019-02-04] MEDS ORDERED: BACLOFEN 10 MG TABLET (FP) ONE (22:24)
[2019-02-04] MEDS ORDERED: MONTELUKAST NA 10 MG TABLET ONE (22:25)
[2019-02-04] MEDS ORDERED: MAG HYDROX/AL HYDROX/SIMETH 30 ML UNIT-DOSE CUP ONE (22:25)
[2019-02-04] MEDS: MAGNESIUM HYDROX 2400MG/30ML ORAL SUSPENSION 30 ML CUP GT SCH (23:18)
[2019-02-04] MEDS: MONTELUKAST NA 10 MG TABLET GT SCH (23:18)
[2019-02-04] MEDS: CALCIUM 500MG/VIT-D 200 UNITS COMBO TABLET (FP) GT SCH (23:18)
[2019-02-04] MEDS: BUDESONIDE/FORMETEROL FUMARATE 80/4.5 mcg INHALER IH SCH (23:18)
[2019-02-04] MEDS: HYDROCORTISONE 1% TOPICAL CREAM 30 GM TUBE TP SCH (23:18)
[2019-02-04] MEDS: BACLOFEN 10 MG TABLET (FP) GT SCH (23:18)
[2019-02-05] MEDS ORDERED: PHENobarbital 30 MG TABLET GT SCH (01:00)
[2019-02-05] MEDS ORDERED: methylPREDNISolone NA SUCC 40 MG/1 ML VIAL ONE (02:12)
[2019-02-05] MEDS: methylPREDNISolone NA SUCC 40 MG/1 ML VIAL IVPUSH SCH ×3 (02:39→17:28)
[2019-02-05] MEDS: ALBUTEROL SO4 2.5/IPRATROPIUM 0.5 INH SOL 3 ML VIAL.NEB. NEB SCH ×3 (07:30→20:40)
[2019-02-05 07:56] LABS: BASO % 0.3 % (0-2.0); EOS % 0.1 % (0-4.5); HEMATOCRIT 43.6 % (32.4-45.2); HEMOGLOBIN 14.4 GM/dL (10.7-15.3); LYMPH % 7.1 % (8-40); MCH 28.2 pg (25.7-33.7); MEAN CELL VOLUME 85.6 fl (80-96); MEAN PLT VOLUME 9.7 fl (7.5-11.1); MONO % 3.2 % (3.8-10.2); NEUT % 89.3 % (42.8-82.8); PLATELET COUNT 266 K/MM3 (134-434); RDW 15.4 % (11.6-15.6); WHITE BLOOD COUNT 9.8 K/mm3 (4.0-10.0)
[2019-02-05 08:29] LABS: ALBUMIN 3.3 g/dl (3.4-5.0); BILIRUBIN,TOTAL 0.3 mg/dL (0.2-1); BLOOD UREA NITROGEN 12.4 mg/dL (7-18); CALCIUM 8.6 mg/dL (8.5-10.1); CREATININE 0.3 mg/dL (0.55-1.3); MAGNESIUM 2.6 mg/dL (1.8-2.4); POTASSIUM 4.6 mmol/L (3.5-5.1); TOT PROT 7.4 g/dl (6.4-8.2)
--- NOTE | 2019-02-05 11:04 | PN ---
Physical Exam: SUBJECTIVE: Patient seen and examined at bedside this morning. Patient comfortable on BiLevel ventilation, saturating well. No acute overnight events noted. Patient in no apparent distress. OBJECTIVE: Vital Signs Period Temp Pulse Resp BP Sys/Holley Pulse Ox Last 24 Hr 97.4 F-100.5 F 68-135 15-44 103-140/69-100 84-100 GENERAL: The patient is awake, minimally responsive, in no acute distress. HEAD: Microcephalic, atraumatic. EYES: PERRL, extraocular movements intact, sclera anicteric. ENT: Oropharynx clear without exudates, moist mucous membranes. NECK: Supple, without lymphadenopathy. LUNGS: Poor air entery bilaterally. Scattered rhonchi wit hexpiratory wheezing auscultated bilaterally. HEART: Regular rate and rhythm, S1, S2 without murmur, rub or gallop. ABDOMEN: Soft, nondistended, nontender to palpation. Normoactive bowel sounds. No hepatosplenomegaly appreciated. G tube in place, site clean, dry. EXTREMITIES: 2+ radial, dorsalis pedis pulses, warm, well-perfused. No lower extremity edema. NEUROLOGICAL: Patient is quadriplegic. SKIN: Warm, dry. Numerous keloids noted. Laboratory Results - last 24 hr 02/04/19 02/04/19 02/04/19 12:57 12:57 12:57 WBC 8.6 RBC 5.54 H Hgb 15.6 H Hct 47.1 H MCV 84.9 MCH 28.1 MCHC 33.1 RDW 15.2 Plt Count 362 D MPV 9.1 Absolute Neuts (auto) 6.1 Neutrophils % 70.3 Lymphocytes % 14.4 Monocytes % 7.1 Eosinophils % 7.7 H D Basophils % 0.5 Nucleated RBC % 0 PT with INR INR PTT (Actin FS) 33.9 Anticoagulation Therapy Puncture Site Patient Temperature ABG pH ABG pCO2 at Pt Temp ABG pO2 at Pt Temp ABG HCO3 ABG O2 Sat (Measured) ABG O2 Content ABG Base Excess Don Test VBG pH POC VBG pCO2 POC VBG pO2 VBG HCO3 VBG O2 Sat (Liane) VBG Base Excess Carboxyhemoglobin Methemoglobin O2 Delivery Device Oxygen Flow Rate Vent Mode Vent Rate Mechanical Rate PEEP Pressure Support Vent Sodium Potassium Chloride Carbon Dioxide Anion Gap BUN Creatinine Est GFR (CKD-EPI)AfAm Est GFR (CKD-EPI)NonAf Random Glucose Lactic Acid Calcium Magnesium Total Bilirubin AST ALT Alkaline Phosphatase Troponin I < 0.02 Total Protein Albumin Urine Color Urine Appearance Urine pH Ur Specific [place] Urine Protein Urine Glucose (UA) Urine Ketones Urine Blood Urine Nitrite Urine Bilirubin Urine Urobilinogen Ur Leukocyte Esterase 02/04/19 02/04/19 02/04/19 12:57 12:57 12:57 WBC RBC Hgb Hct MCV MCH MCHC RDW Plt Count MPV Absolute Neuts (auto) Neutrophils % Lymphocytes % Monocytes % Eosinophils % Basophils % Nucleated RBC % PT with INR 12.40 INR 1.05 PTT (Actin FS) Anticoagulation Therapy Puncture Site Patient Temperature ABG pH ABG pCO2 at Pt Temp ABG pO2 at Pt Temp ABG HCO3 ABG O2 Sat (Measured) ABG O2 Content ABG Base Excess Don Test VBG pH POC VBG pCO2 POC VBG pO2 VBG HCO3 VBG O2 Sat (Liane) VBG Base Excess Carboxyhemoglobin Methemoglobin O2 Delivery Device Oxygen Flow Rate Vent Mode Vent Rate Mechanical Rate PEEP Pressure Support Vent Sodium 138 Potassium 4.4 Chloride 103 Carbon Dioxide 25 Anion Gap 10 BUN 14.6 Creatinine 0.5 L Est GFR (CKD-EPI)AfAm 142.30 Est GFR (CKD-EPI)NonAf 122.78 Random Glucose 122 H Lactic Acid 1.4 Calcium 9.8 Magnesium Total Bilirubin 0.2 AST 19 ALT 25 Alkaline Phosphatase 98 Troponin I Total Protein 8.5 H Albumin 3.8 Urine Color Urine Appearance Urine pH Ur Specific [place] Urine Protein Urine Glucose (UA) Urine Ketones Urine Blood Urine Nitrite Urine Bilirubin Urine Urobilinogen Ur Leukocyte Esterase 02/04/19 02/04/19 02/04/19 13:00 14:18 14:20 WBC RBC Hgb Hct MCV MCH MCHC RDW Plt Count MPV Absolute Neuts (auto) Neutrophils % Lymphocytes % Monocytes % Eosinophils % Basophils % Nucleated RBC % PT with INR INR PTT (Actin FS) Anticoagulation Therapy No Result Required. No Result Required. Cancelled Puncture Site No Result Required. Right radial Cancelled Patient Temperature Cancelled ABG pH 7.32 L 7.30 L Cancelled ABG pCO2 at Pt Temp 40.1 37.3 Cancelled ABG pO2 at Pt Temp 72.4 L 78.2 L Cancelled ABG HCO3 20.0 L 22.3 Cancelled ABG O2 Sat (Measured) 91.3 L 94.8 L Cancelled ABG O2 Content No Result Required. 19.2 Cancelled ABG Base Excess -5.4 L -1.6 Cancelled Don Test Positive Positive Cancelled VBG pH POC VBG pCO2 POC VBG pO2 VBG HCO3 VBG O2 Sat (Liane) VBG Base Excess Carboxyhemoglobin < 0.5 0.5 Methemoglobin < 1.0 < 1.0 O2 Delivery Device No Result Required. No Result Required. Cancelled Oxygen Flow Rate 6l Yes Cancelled Vent Mode No Result Required. No Result Required. Cancelled Vent Rate No Result Required. No Result Required. Cancelled Mechanical Rate No Result Required. No Result Required. Cancelled PEEP Cancelled Pressure Support Vent No Result Required. No Result Required. Cancelled Sodium Potassium Chloride Carbon Dioxide Anion Gap BUN Creatinine Est GFR (CKD-EPI)AfAm Est GFR (CKD-EPI)NonAf Random Glucose Lactic Acid Calcium Magnesium Total Bilirubin AST ALT Alkaline Phosphatase Troponin I Total Protein Albumin Urine Color Urine Appearance Urine pH Ur Specific [place] Urine Protein Urine Glucose (UA) Urine Ketones Urine Blood Urine Nitrite Urine Bilirubin Urine Urobilinogen Ur Leukocyte Esterase 02/04/19 02/04/19 02/04/19 18:00 18:01 20:12 WBC RBC Hgb Hct MCV MCH MCHC RDW Plt Count MPV Absolute Neuts (auto) Neutrophils % Lymphocytes % Monocytes % Eosinophils % Basophils % Nucleated RBC % PT with INR INR PTT (Actin FS) Anticoagulation Therapy Cancelled Puncture Site Cancelled Patient Temperature Cancelled ABG pH Cancelled ABG pCO2 at Pt Temp Cancelled ABG pO2 at Pt Temp Cancelled ABG HCO3 Cancelled ABG O2 Sat (Measured) Cancelled ABG O2 Content Cancelled ABG Base Excess Cancelled Don Test Cancelled VBG pH POC VBG pCO2 POC VBG pO2 VBG HCO3 VBG O2 Sat (Liane) VBG Base Excess Carboxyhemoglobin Methemoglobin O2 Delivery Device Cancelled Oxygen Flow Rate Cancelled Vent Mode Cancelled Vent Rate Cancelled Mechanical Rate Cancelled PEEP Cancelled Pressure Support Vent Cancelled Sodium Potassium Chloride Carbon Dioxide Anion Gap BUN Creatinine Est GFR (CKD-EPI)AfAm Est GFR (CKD-EPI)NonAf Random Glucose Lactic Acid 1.4 Calcium Magnesium Total Bilirubin AST ALT Alkaline Phosphatase Troponin I Total Protein Albumin Urine Color Yellow Urine Appearance Clear Urine pH 5.5 Ur Specific [place] 1.021 Urine Protein Negative Urine Glucose (UA) Negative Urine Ketones Negative Urine Blood Negative Urine Nitrite Negative Urine Bilirubin Negative Urine Urobilinogen 0.2 Ur Leukocyte Esterase Negative 02/04/19 02/05/19 02/05/19 20:20 06:26 06:26 WBC 9.8 RBC 5.10 Hgb 14.4 Hct 43.6 MCV 85.6 MCH 28.2 MCHC 33.0 RDW 15.4 Plt Count 266 D MPV 9.7 Absolute Neuts (auto) 8.8 H Neutrophils % 89.3 H D Lymphocytes % 7.1 L D Monocytes % 3.2 L Eosinophils % 0.1 D Basophils % 0.3 Nucleated RBC % 0 PT with INR INR PTT (Actin FS) Anticoagulation Therapy Puncture Site Patient Temperature ABG pH ABG pCO2 at Pt Temp ABG pO2 at Pt Temp ABG HCO3 ABG O2 Sat (Measured) ABG O2 Content ABG Base Excess Don Test VBG pH 7.38 POC VBG pCO2 37.0 L POC VBG pO2 < 49 H VBG HCO3 21.5 L VBG O2 Sat (Liane) 78.4 VBG Base Excess -2.6 L Carboxyhemoglobin Methemoglobin O2 Delivery Device Oxygen Flow Rate Vent Mode Vent Rate Mechanical Rate PEEP Pressure Support Vent Sodium 141 Potassium 4.6 Chloride 112 H Carbon Dioxide 20 L Anion Gap 9 BUN 12.4 Creatinine 0.3 L Est GFR (CKD-EPI)AfAm 168.34 Est GFR (CKD-EPI)NonAf 145.24 Random Glucose 78 Lactic Acid Calcium 8.6 Magnesium 2.6 H Total Bilirubin 0.3 AST 31 ALT 26 Alkaline Phosphatase 85 Troponin I Total Protein 7.4 Albumin 3.3 L Urine Color Urine Appearance Urine pH Ur Specific [place] Urine Protein Urine Glucose (UA) Urine Ketones Urine Blood Urine Nitrite Urine Bilirubin Urine Urobilinogen Ur Leukocyte Esterase Active Medications Generic Name Dose Route Start Last Admin Trade Name Freq PRN Reason Stop Dose Admin Albuterol Sulfate 1 amp 02/04/19 18:11 Ventolin 0.083% Nebulizer Soln - NEB Q4H PRN SHORT OF BREATH/WHEEZING Albuterol/Ipratropium 1 amp 02/04/19 20:00 02/05/19 07:30 Duoneb - NEB 1 amp RTID JAMIL Administration Baclofen 20 mg 02/04/19 22:00 02/04/19 23:18 Lioresal - GT 20 mg BID JAMIL Administration Budesonide/Formoterol Fumarate 2 puff 02/04/19 22:00 02/04/19 23:18 Symbicort 80/4.5mcg - IH 2 puff BID JAMIL Administration Calcium Carbonate/Cholecalciferol 1 tab 02/04/19 22:00 02/04/19 23:18 Os-Del 500+D - GT 1 tab BID JAMIL Administration Chlorhexidine Gluconate 1 applic 02/04/19 22:00 Hibiclens For Decolonization - TP HS JAMIL Enoxaparin Sodium 40 mg 02/05/19 10:00 Lovenox - SQ DAILY JAMIL Hydrocortisone 1 applic 02/04/19 22:00 02/04/19 23:18 Hytone 1% Cream - TP 1 applic BID JAMIL Administration Sodium Chloride 1,000 mls @ 42 mls/hr 02/04/19 18:30 02/04/19 19:23 Normal Saline - IV 02/05/19 18:19 42 mls/hr ASDIR JAMIL Administration Magnesium Hydroxide 30 ml 02/04/19 22:00 02/04/19 23:18 Milk Of Magnesia - GT 30 ml HS JAMIL Administration Methylprednisolone Sodium Succinate 40 mg 02/04/19 19:30 02/05/19 02:39 Solu-Medrol - IVPUSH 40 mg Q8H-IV JAMIL Administration Montelukast Sodium 10 mg 02/04/19 22:00 02/04/19 23:18 Singulair - GT 10 mg HS JAMIL Administration Mupirocin 1 applic 02/04/19 22:00 Bactroban Ointment (For Decolonization) - NS 02/09/19 21:59 BID JAMIL Non-Formulary Medication 1 each 02/05/19 10:00 Multivit-Min/Fa/Lycopen/Lutein [Vitrum 50 Plus Senior Tablet] GT DAILY JAMIL Non-Formulary Medication 64.8 mg 02/04/19 22:00 Phenobarbital [Phenobarbital] GT HS JAMIL Phenobarbital 32.4 mg 02/05/19 20:00 Phenobarbital - GT ASDIR JAMIL ASSESSMENT/PLAN: Patient is a 38 year old female with history of asthma, developmental delay, microcephaly, epilepsy, quadriplegia, presents from [facility] for acute hypoxic respiratory failure. Neurologic History of epilepsy History of developmental delay Microcephaly -Reinstate Phenobarbital 32.4mg GT AM, 64.8mg GT HS Cardiovascular -Patient remains normotensive; currently not on any pressors. -Cardiac monitoring while in ICU Pulmonary History of Asthma Acute hypoxic respiratory failure secondary to asthma exacerbation. May be due to aspiration pneumonitis. Currently chest radiograph reveals atectasis without clear infiltrate. -Patient has been weaned off BiLevel ventilaiton, saturating well on 4L nasal canula. No respiratory distress. -Will attempt to wean off nasal canula as patient tolerates. -Patient received Methylprednisone 125mg IV in ED -Methylprednisone 40mg IV Q8 hours -Albuterol/ Ipratropium nebulizer TID -Albuterol nebulizer Q4 hours PRN -Symbicort 2 puffs IH BID -Singulair 10mg GT HS Gastrointestinal -Jevity 1.5 tube feeds reinstated ; titrate as tolerated. -Aspiration precautions; elevate head of bed 30-45 degrees. Infectious disease -Patient received Vancomycin, and Meropenem in ED. However given that patient remains afebrile, and without elevated WBC count, will monitor off antibiotics. -Chest radiograph without clear infiltrate. -Follow blood cultures -Follow urine cultures FEN -Fluids: IV normal saline at 42mL/ hour -Electrolytes: Within normal limits. Follow BMP, replete as necessary. -Nutrition: NPO. Tube feeds reinstated (Jevity 1.5) Prophylaxis -Lovenox 40mg subq daily Disposition -Patient is medically stable for transfer to medical surgical floor. Loya catheter placed 02/04/2019 Visit type - Emergency Visit Emergency Visit: Yes ED Registration Date: 02/04/19 Care time: The patient presented to the Emergency Department on the above date and was hospitalized for further evaluation of their emergent condition. - New Patient This patient is new to me today: Yes Date on this admission: 02/05/19 - Critical Care Critical Care patient: Yes Total Critical Care Time (in minutes): 35 Critical Care Statement: The care of this patient involved high complexity decision making to prevent further life threatening deterioration of the patient 's condition and/or to evaluate & treat vital organ system(s) failure or risk of failure. - Discharge Referral Referred to [facility] No ATTENDING PHYSICIAN STATEMENT I saw and evaluated the patient. I reviewed the resident's note and discussed the case with the resident. I agree with the resident's findings and plan as documented. SUBJECTIVE: OBJECTIVE: ASSESSMENT AND PLAN:
[2019-02-05] MEDS: MUPIROCIN 2% TOPICAL OINTMENT FOR DECOLONIZATION NS SCH ×2 (11:24→22:53)
[2019-02-05] MEDS: HYDROCORTISONE 1% TOPICAL CREAM 30 GM TUBE TP SCH ×2 (11:29→22:53)
[2019-02-05] MEDS: ENOXAPARIN NA (PORCINE) 40 MG/0.4 ML DISP.SYRIN SQ SCH (11:29)
[2019-02-05] MEDS: CALCIUM 500MG/VIT-D 200 UNITS COMBO TABLET (FP) GT SCH ×2 (11:31→22:53)
[2019-02-05] MEDS: BUDESONIDE/FORMETEROL FUMARATE 80/4.5 mcg INHALER IH SCH ×2 (11:32→22:52)
--- NOTE | 2019-02-05 11:37 | PN ---
Teaching Attending Note Name of Resident: Alex Gardner ATTENDING PHYSICIAN STATEMENT I saw and evaluated the patient. I reviewed the resident's note and discussed the case with the resident. I agree with the resident's findings and plan as documented. SUBJECTIVE: Pt seen and examined in the ICU. Received from ED on BiPAP saturating 100% on 40 % FiO2. Pt awake, nonverbal with nonlabored respiratory effort, transitioned to nasal cannula. OBJECTIVE: Vital Signs Period Temp Pulse Resp BP Sys/Holley Pulse Ox Last 24 Hr 97.4 F-100.5 F 68-135 15-44 103-140/69-100 84-100 Intake & Output 02/02/19 02/03/19 02/04/19 02/05/19 23:59 23:59 23:59 23:59 Output Total 350 Balance -350 Weight 44.452 kg Gen: NAD at rest Heart: RRR Lung: decreased breath sounds at the bases Abd: soft, nontender Ext: no edema CBC, BMP 02/05/19 06:26 02/05/19 06:26 Active Medications Albuterol Sulfate (Ventolin 0.083% Nebulizer Soln -) 1 amp NEB Q4H PRN PRN Reason: SHORT OF BREATH/WHEEZING Albuterol/Ipratropium (Duoneb -) 1 amp NEB RTID [facility] Last Admin: 02/05/19 07:30 Dose: 1 amp Baclofen (Lioresal -) 20 mg GT BID [facility] Last Admin: 02/04/19 23:18 Dose: 20 mg Budesonide/Formoterol Fumarate (Symbicort 80/4.5mcg -) 2 puff IH BID [facility] Last Admin: 02/05/19 11:32 Dose: Not Given Calcium Carbonate/Cholecalciferol (Os-Del 500+D -) 1 tab GT BID [facility] Last Admin: 02/05/19 11:31 Dose: 1 tab Chlorhexidine Gluconate (Hibiclens For Decolonization -) 1 applic TP HS [facility] Enoxaparin Sodium (Lovenox -) 40 mg SQ DAILY [facility] Last Admin: 02/05/19 11:29 Dose: 40 mg Hydrocortisone (Hytone 1% Cream -) 1 applic TP BID [facility] Last Admin: 02/05/19 11:29 Dose: 1 applic Sodium Chloride (Normal Saline -) 1,000 mls @ 42 mls/hr IV ASDIR JAMIL Stop: 02/05/19 18:19 Last Admin: 02/04/19 19:23 Dose: 42 mls/hr Magnesium Hydroxide (Milk Of Magnesia -) 30 ml GT HS JAMIL Last Admin: 02/04/19 23:18 Dose: 30 ml Methylprednisolone Sodium Succinate (Solu-Medrol -) 40 mg IVPUSH Q8H-IV JAMIL Last Admin: 02/05/19 11:32 Dose: 40 mg Montelukast Sodium (Singulair -) 10 mg GT HS [facility] Last Admin: 02/04/19 23:18 Dose: 10 mg Mupirocin (Bactroban Ointment (For Decolonization) -) 1 applic NS BID JAMIL Stop: 02/09/19 21:59 Last Admin: 02/05/19 11:24 Dose: 1 applic Non-Formulary Medication (Multivit-Min/Fa/Lycopen/Lutein [Vitrum 50 Plus Senior Tablet]) 1 each GT DAILY [facility] Non-Formulary Medication (Phenobarbital [Phenobarbital]) 64.8 mg GT HS JAMIL Phenobarbital (Phenobarbital -) 32.4 mg GT ASDIR JAMIL ASSESSMENT AND PLAN: Acute Hypoxic Respiratory Failure r/o Aspiration Pneumonitis vs Acute Bronchospasm Cerebral Palsy Mental Retardation Functional Quadriplegia Seizure Disorder - continue inhaled bronchodilators - can d/c medrol in AM if remains stable - O2 to keep SpO2 >90% - agree with monitoring off antibiotics - antiepileptics - enteral feeds - aspiration precautions - DVT prophylaxis - can monitor on floor
[2019-02-05] MEDS: BACLOFEN 10 MG TABLET (FP) GT SCH ×2 (13:00→22:52)
--- NOTE | 2019-02-05 15:29 | PN ---
Physical Exam: SUBJECTIVE: Patient seen and examined. She is awake and appears comfortable. OBJECTIVE: Vital Signs Period Temp Pulse Resp BP Sys/Holley Pulse Ox Last 24 Hr 97.4 F-98.9 F 68-105 14-21 100-135/69-94 97-100 GENERAL: The patient is awake, non-verbal, in no acute distress. LUNGS: Breath sounds equal, clear to auscultation bilaterally, no wheezes, no crackles, no accessory muscle use. HEART: Regular rate and rhythm, S1, S2 without murmur, rub or gallop. ABDOMEN: Soft, nondistended, normoactive bowel sounds, PEG site clean. EXTREMITIES: Contracted, 2+ pulses, warm, well-perfused, no edema. Laboratory Results - last 24 hr 02/04/19 02/04/19 02/04/19 18:00 18:01 20:12 WBC RBC Hgb Hct MCV MCH MCHC RDW Plt Count MPV Absolute Neuts (auto) Neutrophils % Lymphocytes % Monocytes % Eosinophils % Basophils % Nucleated RBC % Anticoagulation Therapy Cancelled Puncture Site Cancelled Patient Temperature Cancelled ABG pH Cancelled ABG pCO2 at Pt Temp Cancelled ABG pO2 at Pt Temp Cancelled ABG HCO3 Cancelled ABG O2 Sat (Measured) Cancelled ABG O2 Content Cancelled ABG Base Excess Cancelled Don Test Cancelled VBG pH POC VBG pCO2 POC VBG pO2 VBG HCO3 VBG O2 Sat (Liane) VBG Base Excess O2 Delivery Device Cancelled Oxygen Flow Rate Cancelled Vent Mode Cancelled Vent Rate Cancelled Mechanical Rate Cancelled PEEP Cancelled Pressure Support Vent Cancelled Sodium Potassium Chloride Carbon Dioxide Anion Gap BUN Creatinine Est GFR (CKD-EPI)AfAm Est GFR (CKD-EPI)NonAf Random Glucose Lactic Acid 1.4 Calcium Magnesium Total Bilirubin AST ALT Alkaline Phosphatase Total Protein Albumin Urine Color Yellow Urine Appearance Clear Urine pH 5.5 Ur Specific Cullen 1.021 Urine Protein Negative Urine Glucose (UA) Negative Urine Ketones Negative Urine Blood Negative Urine Nitrite Negative Urine Bilirubin Negative Urine Urobilinogen 0.2 Ur Leukocyte Esterase Negative 02/04/19 02/05/19 02/05/19 20:20 06:26 06:26 WBC 9.8 RBC 5.10 Hgb 14.4 Hct 43.6 MCV 85.6 MCH 28.2 MCHC 33.0 RDW 15.4 Plt Count 266 D MPV 9.7 Absolute Neuts (auto) 8.8 H Neutrophils % 89.3 H D Lymphocytes % 7.1 L D Monocytes % 3.2 L Eosinophils % 0.1 D Basophils % 0.3 Nucleated RBC % 0 Anticoagulation Therapy Puncture Site Patient Temperature ABG pH ABG pCO2 at Pt Temp ABG pO2 at Pt Temp ABG HCO3 ABG O2 Sat (Measured) ABG O2 Content ABG Base Excess Don Test VBG pH 7.38 POC VBG pCO2 37.0 L POC VBG pO2 < 49 H VBG HCO3 21.5 L VBG O2 Sat (Liane) 78.4 VBG Base Excess -2.6 L O2 Delivery Device Oxygen Flow Rate Vent Mode Vent Rate Mechanical Rate PEEP Pressure Support Vent Sodium 141 Potassium 4.6 Chloride 112 H Carbon Dioxide 20 L Anion Gap 9 BUN 12.4 Creatinine 0.3 L Est GFR (CKD-EPI)AfAm 168.34 Est GFR (CKD-EPI)NonAf 145.24 Random Glucose 78 Lactic Acid Calcium 8.6 Magnesium 2.6 H Total Bilirubin 0.3 AST 31 ALT 26 Alkaline Phosphatase 85 Total Protein 7.4 Albumin 3.3 L Urine Color Urine Appearance Urine pH Ur Specific Cullen Urine Protein Urine Glucose (UA) Urine Ketones Urine Blood Urine Nitrite Urine Bilirubin Urine Urobilinogen Ur Leukocyte Esterase Active Medications Generic Name Dose Route Start Last Admin Trade Name Lakesha PRN Reason Stop Dose Admin Albuterol Sulfate 1 amp 02/04/19 18:11 Ventolin 0.083% Nebulizer Soln - NEB Q4H PRN SHORT OF BREATH/WHEEZING Albuterol/Ipratropium 1 amp 02/04/19 20:00 02/05/19 07:30 Duoneb - NEB 1 amp RTID JAMIL Administration Baclofen 20 mg 02/04/19 22:00 02/05/19 13:00 Lioresal - GT 20 mg BID JAMIL Administration Budesonide/Formoterol Fumarate 2 puff 02/04/19 22:00 02/05/19 11:32 Symbicort 80/4.5mcg - IH Not Given BID [facility] Calcium Carbonate/Cholecalciferol 1 tab 02/04/19 22:00 02/05/19 11:31 Os-Del 500+D - GT 1 tab BID JAMIL Administration Chlorhexidine Gluconate 1 applic 02/04/19 22:00 Hibiclens For Decolonization - TP HS JAMIL Enoxaparin Sodium 40 mg 02/05/19 10:00 02/05/19 11:29 Lovenox - SQ 40 mg DAILY JAMIL Administration Hydrocortisone 1 applic 02/04/19 22:00 02/05/19 11:29 Hytone 1% Cream - TP 1 applic BID JAMIL Administration Sodium Chloride 1,000 mls @ 42 mls/hr 02/04/19 18:30 02/04/19 19:23 Normal Saline - IV 02/05/19 18:19 42 mls/hr ASDIR JAMIL Administration Magnesium Hydroxide 30 ml 02/04/19 22:00 02/04/19 23:18 Milk Of Magnesia - GT 30 ml HS JAMIL Administration Methylprednisolone Sodium Succinate 40 mg 02/05/19 18:00 Solu-Medrol - IVPUSH 02/06/19 02:01 Q8H-IV JAMIL Montelukast Sodium 10 mg 02/04/19 22:00 02/04/19 23:18 Singulair - GT 10 mg HS JAMIL Administration Multi-Ingredient Ointment 1 applic 02/05/19 22:00 Zinc Oxide TP BID JAMIL Mupirocin 1 applic 02/04/19 22:00 02/05/19 11:24 Bactroban Ointment (For Decolonization) - NS 02/09/19 21:59 1 applic BID JAMIL Administration Non-Formulary Medication 1 each 02/05/19 10:00 Multivit-Min/Fa/Lycopen/Lutein [Vitrum 50 Plus Senior Tablet] GT DAILY JAMIL Phenobarbital 32.4 mg 02/05/19 20:00 Phenobarbital - GT ASDIR JAMIL Phenobarbital 60 mg 02/05/19 22:00 Phenobarbital - GT HS [facility] ASSESSMENT/PLAN: This is a 38 year old woman with a history of asthma, seizure disorder, scoliosis, microcephaly, developmental delay, quadriplegia, GERD, keloids who presented to the ED from [facility] with wheezing. 1. Acute hypoxic respiratory failure secondary to asthma exacerbation - Continue SoluMedrol, DuoNeb, Symbicort, Singulair, albuterol as needed - Oxygen to maintain saturation >90% 2. Microcephaly with developmental delay and quadriplegia - Continue Baclofen 3. Seizure disorder - Continue Phenobarbital 4. Nutrition - PEG feedings restarted Visit type - Emergency Visit Emergency Visit: Yes ED Registration Date: 02/04/19 Care time: The patient presented to the Emergency Department on the above date and was hospitalized for further evaluation of their emergent condition. - New Patient This patient is new to me today: No - Critical Care Critical Care patient: No - Discharge Referral Referred to [facility] Med P.C.: No
[2019-02-05] MEDS: ZINC OXIDE 20% TOPICAL OINTMENT 30 GM TUBE TP SCH ×2 (15:59→22:54)
[2019-02-05] MEDS ORDERED: PNEUMOCOCCAL 23 VACCINE 0.5 ML VIAL IM ONE (17:29)
[2019-02-05] MEDS: CHLORHEXIDINE GLUCONATE 4% CLEANSER FOR DECOLONIZATION TP SCH (22:53)
[2019-02-05] MEDS: MAGNESIUM HYDROX 2400MG/30ML ORAL SUSPENSION 30 ML CUP GT SCH (22:53)
[2019-02-05] MEDS: PHENobarbital 30 MG TABLET GT SCH (22:53)
[2019-02-05] MEDS: MONTELUKAST NA 10 MG TABLET GT SCH (22:53)
[2019-02-06] MEDS: methylPREDNISolone NA SUCC 40 MG/1 ML VIAL IVPUSH SCH (02:51)
[2019-02-06 07:11] LABS: HEMATOCRIT 38.9 % (32.4-45.2); MCH 28.4 pg (25.7-33.7); MCHC 33.4 g/dl (32.0-36.0); MEAN PLT VOLUME 9.2 fl (7.5-11.1); PLATELET COUNT 301 K/MM3 (134-434); RBC 4.57 M/mm3 (3.60-5.2); WHITE BLOOD COUNT 9.1 K/mm3 (4.0-10.0)
[2019-02-06 07:20] LABS: BILIRUBIN,TOTAL 0.2 mg/dL (0.2-1); BLOOD UREA NITROGEN 15.7 mg/dL (7-18); CALCIUM 8.9 mg/dL (8.5-10.1); CREATININE 0.4 mg/dL (0.55-1.3); MAGNESIUM 2.3 mg/dL (1.8-2.4); PHOSPHOROUS 2.6 mg/dL (2.5-4.9); POTASSIUM 4.5 mmol/L (3.5-5.1); TOT PROT 6.6 g/dl (6.4-8.2)
[2019-02-06] MEDS: ALBUTEROL SO4 2.5/IPRATROPIUM 0.5 INH SOL 3 ML VIAL.NEB. NEB SCH ×3 (08:00→20:50)
[2019-02-06] MEDS: ENOXAPARIN NA (PORCINE) 40 MG/0.4 ML DISP.SYRIN SQ SCH (09:36)
[2019-02-06] MEDS: BACLOFEN 10 MG TABLET (FP) GT SCH ×2 (09:38→22:55)
[2019-02-06] MEDS: MUPIROCIN 2% TOPICAL OINTMENT FOR DECOLONIZATION NS SCH ×2 (09:38→23:46)
[2019-02-06] MEDS: HYDROCORTISONE 1% TOPICAL CREAM 30 GM TUBE TP SCH ×2 (09:40→22:58)
[2019-02-06] MEDS: CALCIUM 500MG/VIT-D 200 UNITS COMBO TABLET (FP) GT SCH ×2 (09:40→22:57)
[2019-02-06] MEDS: BUDESONIDE/FORMETEROL FUMARATE 80/4.5 mcg INHALER IH SCH ×2 (09:41→23:14)
[2019-02-06] MEDS: ZINC OXIDE 20% TOPICAL OINTMENT 30 GM TUBE TP SCH ×2 (09:41→22:58)
[2019-02-06] MEDS ORDERED: PHENobarbital 30 MG TABLET GT SCH ×2 (10:00→21:27)
--- NOTE | 2019-02-06 10:01 | PN ---
Progress Note (short form) - Note Progress Note: PULMONARY/CRITICAL CARE PROGRESS NOTE: SUBJECTIVE: Pt seen and examined in the ICU. Remains stable on NC - SpO2 100% OBJECTIVE: Current Medications Albuterol Sulfate (Ventolin 0.083% Nebulizer Soln -) 1 amp NEB Q4H PRN PRN Reason: SHORT OF BREATH/WHEEZING Albuterol/Ipratropium (Duoneb -) 1 amp NEB RTID [facility] Last Admin: 02/06/19 08:00 Dose: 1 amp Baclofen (Lioresal -) 20 mg GT BID [facility] Last Admin: 02/06/19 09:38 Dose: 20 mg Budesonide/Formoterol Fumarate (Symbicort 80/4.5mcg -) 2 puff IH BID [facility] Last Admin: 02/06/19 09:41 Dose: Not Given Calcium Carbonate/Cholecalciferol (Os-Del 500+D -) 1 tab GT BID [facility] Last Admin: 02/06/19 09:40 Dose: 1 tab Chlorhexidine Gluconate (Hibiclens For Decolonization -) 1 applic TP HS [facility] Last Admin: 02/05/19 22:53 Dose: 1 applic Enoxaparin Sodium (Lovenox -) 40 mg SQ DAILY [facility] Last Admin: 02/06/19 09:36 Dose: 40 mg Hydrocortisone (Hytone 1% Cream -) 1 applic TP BID [facility] Last Admin: 02/06/19 09:40 Dose: 1 applic Magnesium Hydroxide (Milk Of Magnesia -) 30 ml GT HS [facility] Last Admin: 02/05/19 22:53 Dose: 30 ml Montelukast Sodium (Singulair -) 10 mg GT HS [facility] Last Admin: 02/05/19 22:53 Dose: 10 mg Multi-Ingredient Ointment (Zinc Oxide) 1 applic TP BID [facility] Last Admin: 02/06/19 09:41 Dose: 1 applic Mupirocin (Bactroban Ointment (For Decolonization) -) 1 applic NS BID [facility] Stop: 02/09/19 21:59 Last Admin: 02/06/19 09:38 Dose: 1 applic Non-Formulary Medication (Multivit-Min/Fa/Lycopen/Lutein [Vitrum 50 Plus Senior Tablet]) 1 each GT DAILY [facility] Phenobarbital (Phenobarbital -) 30 mg GT DAILY [facility] Last Admin: 02/06/19 09:37 Dose: 30 mg Phenobarbital (Phenobarbital -) 60 mg GT HS JAMIL Last Admin: 02/05/19 22:53 Dose: 60 mg Vital Signs Temp 97.7 F 02/06/19 06:00 Pulse 68 02/06/19 07:57 Resp 16 02/06/19 07:57 BP 112/67 02/06/19 07:57 Pulse Ox 100 02/06/19 09:00 Intake & Output 02/05/19 02/06/19 02/06/19 18:59 06:59 18:59 Intake Total 260 702 Output Total 200 300 Balance 60 402 Weight 35.834 kg 35.108 kg Intake: Tube Feeding 120 459 Tube Irrigant 140 243 Output: Urine 200 300 Loya 200 300 Other: Voiding Method Indwelling Catheter Indwelling Catheter Indwelling Catheter Bowel Movement Yes # Bowel Movements 1 Height 4 ft 3 in Body Mass Index (BMI) 21.3 Weight Measurement Method Built in Bedscale Built in [facility] Gen: NAD at rest Heart: RRR Lung: clear, no wheezing Abd: soft, nontender Ext: no edema CBC, BMP 02/06/19 05:40 02/06/19 05:40 ASSESSMENT AND PLAN: Acute Hypoxic Respiratory Failure - resolved r/o Aspiration Pneumonitis vs Acute Bronchospasm Cerebral Palsy Mental Retardation Functional Quadriplegia Seizure Disorder - continue inhaled bronchodilators - O2 to keep SpO2 >90% - agree with monitoring off antibiotics - antiepileptics - enteral feeds - aspiration precautions - DVT prophylaxis - can monitor on floor [facility]ras Pulm/Critical Care [employer]
--- NOTE | 2019-02-06 12:03 | PN ---
Physical Exam: SUBJECTIVE: Patient seen and examined. She is awake and alert. She is non- verbal. She appears comfortable. OBJECTIVE: Vital Signs Period Temp Pulse Resp BP Sys/Holley Pulse Ox Last 24 Hr 97.6 F-99.7 F 62-101 12-19 76-115/46-69 98-100 GENERAL: The patient is awake, alert, in no acute distress. LUNGS: Breath sounds equal, clear to auscultation bilaterally, no wheezes, no crackles, no accessory muscle use. HEART: Regular rate and rhythm, S1, S2 without murmur, rub or gallop. ABDOMEN: Soft, nondistended, normoactive bowel sounds, PEG in place and site is clean. EXTREMITIES: Contracted, 2+ pulses, warm, well-perfused, no edema. Laboratory Results - last 24 hr 02/06/19 02/06/19 05:40 05:40 WBC 9.1 RBC 4.57 Hgb 13.0 Hct 38.9 MCV 85.0 MCH 28.4 MCHC 33.4 RDW 15.0 Plt Count 301 MPV 9.2 Sodium 142 Potassium 4.5 Chloride 112 H Carbon Dioxide 24 Anion Gap 6 L BUN 15.7 Creatinine 0.4 L Est GFR (CKD-EPI)AfAm 153.14 Est GFR (CKD-EPI)NonAf 132.13 Random Glucose 148 H Calcium 8.9 Phosphorus 2.6 Magnesium 2.3 Total Bilirubin 0.2 AST 18 ALT 22 Alkaline Phosphatase 73 Total Protein 6.6 Albumin 3.0 L Active Medications Generic Name Dose Route Start Last Admin Trade Name Freq PRN Reason Stop Dose Admin Albuterol Sulfate 1 amp 02/04/19 18:11 Ventolin 0.083% Nebulizer Soln - NEB Q4H PRN SHORT OF BREATH/WHEEZING Albuterol/Ipratropium 1 amp 02/04/19 20:00 02/06/19 08:00 Duoneb - NEB 1 amp RTID JAMIL Administration Baclofen 20 mg 02/04/19 22:00 02/06/19 09:38 Lioresal - GT 20 mg BID JAMIL Administration Budesonide/Formoterol Fumarate 2 puff 02/04/19 22:00 02/06/19 09:41 Symbicort 80/4.5mcg - IH Not Given BID JAMIL Calcium Carbonate/Cholecalciferol 1 tab 02/04/19 22:00 02/06/19 09:40 Os-Del 500+D - GT 1 tab BID JAMIL Administration Chlorhexidine Gluconate 1 applic 02/04/19 22:00 02/05/19 22:53 Hibiclens For Decolonization - TP 1 applic HS JAMIL Administration Enoxaparin Sodium 40 mg 02/05/19 10:00 02/06/19 09:36 Lovenox - SQ 40 mg DAILY JAMIL Administration Hydrocortisone 1 applic 02/04/19 22:00 02/06/19 09:40 Hytone 1% Cream - TP 1 applic BID JAMIL Administration Magnesium Hydroxide 30 ml 02/04/19 22:00 02/05/19 22:53 Milk Of Magnesia - GT 30 ml HS JAMIL Administration Montelukast Sodium 10 mg 02/04/19 22:00 02/05/19 22:53 Singulair - GT 10 mg HS JAMIL Administration Multi-Ingredient Ointment 1 applic 02/05/19 22:00 02/06/19 09:41 Zinc Oxide TP 1 applic BID JAMIL Administration Mupirocin 1 applic 02/04/19 22:00 02/06/19 09:38 Bactroban Ointment (For Decolonization) - NS 02/09/19 21:59 1 applic BID JAMIL Administration Non-Formulary Medication 1 each 02/05/19 10:00 Multivit-Min/Fa/Lycopen/Lutein [Vitrum 50 Plus Senior Tablet] GT DAILY JAMIL Phenobarbital 30 mg 02/06/19 10:00 02/06/19 09:37 Phenobarbital - GT 30 mg DAILY JAMIL Administration Phenobarbital 60 mg 02/05/19 22:00 02/05/19 22:53 Phenobarbital - GT 60 mg HS JAMIL Administration ASSESSMENT/PLAN: This is a 38 year old woman with a history of asthma, seizure disorder, scoliosis, microcephaly, developmental delay, quadriplegia, GERD, keloids who presented to the ED from [facility] with wheezing. 1. Acute hypoxic respiratory failure secondary to asthma exacerbation - Continue SoluMedrol, DuoNeb, Symbicort, Singulair, albuterol as needed - Oxygen to maintain saturation >90% 2. Microcephaly with developmental delay and quadriplegia - Continue Baclofen 3. Seizure disorder - Continue Phenobarbital 4. Nutrition - Continue Jevity PEG feeds [facility]. [facility] Emergency Visit: Yes ED Registration Date: 02/04/19 Care time: The patient presented to the Emergency Department on the above date and was hospitalized for further evaluation of their emergent condition. - New Patient This patient is new to me today: No - Critical Care Critical Care patient: No - Discharge Referral Referred to [facility] Med P.C.: No
[2019-02-06 16:46] VITALS: BMI 20.8
[2019-02-06] MEDS ORDERED: CHLORHEXIDINE GLUCONATE 4% CLEANSER FOR DECOLONIZATION TP SCH (22:00)
[2019-02-06] MEDS ORDERED: MUPIROCIN 2% TOPICAL OINTMENT FOR DECOLONIZATION NS SCH (22:00)
[2019-02-06] MEDS: PHENobarbital 30 MG TABLET GT SCH (22:57)
[2019-02-06] MEDS: MONTELUKAST NA 10 MG TABLET GT SCH (22:57)
[2019-02-06] MEDS: MAGNESIUM HYDROX 2400MG/30ML ORAL SUSPENSION 30 ML CUP GT SCH (22:58)
[2019-02-06] MEDS: ALBUTEROL SO4 0.083% IH SOL 2.5 MG/3 ML VIAL.NEB. NEB PRN (23:44)
[2019-02-06] MEDS: [UNRECOGNIZED DRUG - OTHER] GT SCH (23:45)
[2019-02-06] MEDS: CHLORHEXIDINE GLUCONATE 4% CLEANSER FOR DECOLONIZATION TP SCH (23:46)
[2019-02-07] MEDS: ALBUTEROL SO4 2.5/IPRATROPIUM 0.5 INH SOL 3 ML VIAL.NEB. NEB SCH ×3 (07:48→21:15)
[2019-02-07] MEDS: ZINC OXIDE 20% TOPICAL OINTMENT 30 GM TUBE TP SCH ×2 (09:17→22:53)
[2019-02-07] MEDS: BUDESONIDE/FORMETEROL FUMARATE 80/4.5 mcg INHALER IH SCH ×2 (09:17→22:53)
[2019-02-07] MEDS: BACLOFEN 10 MG TABLET (FP) GT SCH ×2 (09:19→22:53)
[2019-02-07] MEDS: CALCIUM 500MG/VIT-D 200 UNITS COMBO TABLET (FP) GT SCH ×2 (09:20→22:53)
[2019-02-07] MEDS: ENOXAPARIN NA (PORCINE) 40 MG/0.4 ML DISP.SYRIN SQ SCH (09:20)
[2019-02-07] MEDS: HYDROCORTISONE 1% TOPICAL CREAM 30 GM TUBE TP SCH ×2 (09:31→22:53)
--- NOTE | 2019-02-07 09:55 | PN ---
Physical Exam: SUBJECTIVE: Patient seen and examined. She appears comfortable. OBJECTIVE: Vital Signs Period Temp Pulse Resp BP Sys/Holley Pulse Ox Last 24 Hr 97.5 F-98.7 F 66-99 15-22 95-147/52-82 96-100 GENERAL: The patient is awake, alert, in no acute distress. LUNGS: Breath sounds equal, clear to auscultation bilaterally, no wheezes, no crackles, no accessory muscle use. HEART: Regular rate and rhythm, S1, S2 without murmur, rub or gallop. ABDOMEN: Soft, nondistended, normoactive bowel sounds, PEG in place and site is clean. EXTREMITIES: Contracted, 2+ pulses, warm, well-perfused, no edema. Active Medications Generic Name Dose Route Start Last Admin Trade Name Freq PRN Reason Stop Dose Admin Albuterol Sulfate 1 amp 02/06/19 21:27 02/06/19 23:44 Ventolin 0.083% Nebulizer Soln - NEB 1 amp Q4H PRN Administration SHORT OF BREATH/WHEEZING Albuterol/Ipratropium 1 amp 02/07/19 08:00 02/07/19 07:48 Duoneb - NEB 1 amp RTID JAMIL Administration Baclofen 20 mg 02/06/19 22:00 02/07/19 09:19 Lioresal - GT 20 mg BID JAMIL Administration Budesonide/Formoterol Fumarate 2 puff 02/06/19 22:00 02/07/19 09:17 Symbicort 80/4.5mcg - IH 2 puff BID JAMIL Administration Calcium Carbonate/Cholecalciferol 1 tab 02/06/19 22:00 02/07/19 09:20 Os-Del 500+D - GT 1 tab BID JAMIL Administration Enoxaparin Sodium 40 mg 02/07/19 10:00 02/07/19 09:20 Lovenox - SQ 40 mg DAILY JAMIL Administration Hydrocortisone 1 applic 02/06/19 22:00 02/07/19 09:31 Hytone 1% Cream - TP 1 applic BID JAMIL Administration Magnesium Hydroxide 30 ml 02/06/19 22:00 02/06/19 22:58 Milk Of Magnesia - GT 30 ml HS JAMIL Administration Montelukast Sodium 10 mg 02/06/19 22:00 02/06/19 22:57 Singulair - GT 10 mg HS JAMIL Administration Multi-Ingredient Ointment 1 applic 02/05/19 22:00 02/07/19 09:17 Zinc Oxide TP 1 applic BID JAMIL Administration Non-Formulary Medication 1 each 02/07/19 10:00 Multivit-Min/Fa/Lycopen/Lutein [Vitrum 50 Plus Senior Tablet] GT DAILY JAMIL Phenobarbital 60 mg 02/05/19 22:00 02/06/19 22:57 Phenobarbital - GT 60 mg HS JAMIL Administration Phenobarbital 32.4 mg 02/06/19 21:27 Phenobarbital - GT ASDIR JAMIL ASSESSMENT/PLAN: This is a 38 year old woman with a history of asthma, seizure disorder, scoliosis, microcephaly, developmental delay, quadriplegia, GERD, keloids who presented to the ED from [facility] with wheezing. 1. Acute hypoxic respiratory failure secondary to asthma exacerbation - Completed SoluMedrol - Continue Symbicort, Singulair, DuoNeb, albuterol as needed - Oxygen to maintain saturation >90% 2. Microcephaly with developmental delay and quadriplegia - Continue Baclofen 3. Seizure disorder - Continue Phenobarbital 4. Nutrition - Continue Jevity PEG feeds 5. Disposition - Possible discharge to [place] tomorrow Visit type - Emergency Visit Emergency Visit: Yes ED Registration Date: 02/04/19 Care time: The patient presented to the Emergency Department on the above date and was hospitalized for further evaluation of their emergent condition. - New Patient This patient is new to me today: No - Critical Care Critical Care patient: No - Discharge Referral Referred to [facility] Med P.C.: No
[2019-02-07] MEDS ORDERED: [UNRECOGNIZED DRUG - OTHER] GT SCH (10:00)
--- NOTE | 2019-02-07 11:54 | PN ---
Progress Note, Physician History of Present Illness: PULMONARY ALERT,NON-VERBAL,-RESP DISTRESS - Current Medication List Current Medications: Active Medications Albuterol Sulfate (Ventolin 0.083% Nebulizer Soln -) 1 amp NEB Q4H PRN PRN Reason: SHORT OF BREATH/WHEEZING Last Admin: 02/06/19 23:44 Dose: 1 amp Albuterol/Ipratropium (Duoneb -) 1 amp NEB RTID [facility] Last Admin: 02/07/19 07:48 Dose: 1 amp Baclofen (Lioresal -) 20 mg GT BID JAMIL Last Admin: 02/07/19 09:19 Dose: 20 mg Budesonide/Formoterol Fumarate (Symbicort 80/4.5mcg -) 2 puff IH BID [facility] Last Admin: 02/07/19 09:17 Dose: 2 puff Calcium Carbonate/Cholecalciferol (Os-Del 500+D -) 1 tab GT BID [facility] Last Admin: 02/07/19 09:20 Dose: 1 tab Enoxaparin Sodium (Lovenox -) 40 mg SQ DAILY [facility] Last Admin: 02/07/19 09:20 Dose: 40 mg Hydrocortisone (Hytone 1% Cream -) 1 applic TP BID [facility] Last Admin: 02/07/19 09:31 Dose: 1 applic Magnesium Hydroxide (Milk Of Magnesia -) 30 ml GT HS JAMIL Last Admin: 02/06/19 22:58 Dose: 30 ml Montelukast Sodium (Singulair -) 10 mg GT HS [facility] Last Admin: 02/06/19 22:57 Dose: 10 mg Multi-Ingredient Ointment (Zinc Oxide) 1 applic TP BID [facility] Last Admin: 02/07/19 09:17 Dose: 1 applic Non-Formulary Medication (Multivit-Min/Fa/Lycopen/Lutein [Vitrum 50 Plus Senior Tablet]) 1 each GT DAILY JAMIL Phenobarbital (Phenobarbital -) 60 mg GT HS JAMIL Last Admin: 02/06/19 22:57 Dose: 60 mg Phenobarbital (Phenobarbital -) 32.4 mg GT ASDIR JAMIL - Objective Vital Signs: Vital Signs Temperature 97.9 F 02/07/19 08:25 Pulse Rate 89 02/07/19 08:25 Respiratory Rate 20 02/07/19 09:00 Blood Pressure 101/61 02/07/19 08:25 O2 Sat by Pulse Oximetry (%) 98 08/25/19 10:00 Constitutional: Yes: Well Nourished, Calm Eyes: Yes: WNL HENT: Yes: WNL Neck: Yes: WNL Cardiovascular: Yes: Regular Rate and Rhythm, S1, S2 Respiratory: Yes: Rhonchi (FEW RHONCHI) Gastrointestinal: Yes: Normal Bowel Sounds, Soft Extremities: Yes: Shortened, Other (CONTRACTED) Labs: CBC, BMP Problem List - Problems (1) Acute respiratory failure Code(s): J96.00 - ACUTE RESPIRATORY FAILURE, UNSP W HYPOXIA OR HYPERCAPNIA Qualifiers: Respiratory failure complication: hypoxia Qualified Code(s): J96.01 - Acute respiratory failure with hypoxia (2) Hypoxia Code(s): R09.02 - HYPOXEMIA (3) Pneumonia Code(s): J18.9 - PNEUMONIA, UNSPECIFIED ORGANISM Qualifiers: Pneumonia type: due to unspecified organism Laterality: unspecified laterality Lung location: unspecified part of lung Qualified Code(s): J18.9 - Pneumonia, unspecified organism (4) Sepsis Code(s): A41.9 - SEPSIS, UNSPECIFIED ORGANISM Qualifiers: Sepsis type: sepsis due to unspecified organism Qualified Code(s): A41.9 - Sepsis, unspecified organism (5) Seizure disorder Code(s): G40.909 - EPILEPSY, UNSP, NOT INTRACTABLE, WITHOUT STATUS EPILEPTICUS Assessment/Plan ASSESSMENT AND PLAN: Acute Hypoxic Respiratory Failure Improved r/o Aspiration Pneumonitis vs Acute Bronchospasm Cerebral Palsy Mental Retardation Functional Quadriplegia Seizure Disorder - continue inhaled bronchodilators - O2 to keep SpO2 >90% - agree with monitoring off antibiotics - antiepileptics - enteral feeds - aspiration precautions - DVT prophylaxis DR ALVARADO
[2019-02-07] MEDS: MAGNESIUM HYDROX 2400MG/30ML ORAL SUSPENSION 30 ML CUP GT SCH (22:52)
[2019-02-07] MEDS: PHENobarbital 30 MG TABLET GT SCH (22:52)
[2019-02-07] MEDS: MONTELUKAST NA 10 MG TABLET GT SCH (22:53)
[2019-02-08] MEDS: ALBUTEROL SO4 2.5/IPRATROPIUM 0.5 INH SOL 3 ML VIAL.NEB. NEB SCH ×3 (07:20→21:21)
[2019-02-08] MEDS ORDERED: PT OWN MED DRAWER 7, Y5N ONE (09:49)
--- NOTE | 2019-02-08 10:00 | PN ---
Physical Exam: SUBJECTIVE: Patient seen and examined at bedside. Pt is nonverbal OBJECTIVE: Vital Signs Period Temp Pulse Resp BP Sys/Holley Pulse Ox Last 24 Hr 97.3 F-98.1 F 79-94 16-22 104-124/61-75 98-100 GEN: contracted with numerous keloids HEENT: looks around room spontaneously Neck: prominent keloids Cardio: rrr, normal s1s2, no mrg Lungs: cta Abd: soft, nondistended Extremities: contracted Active Medications Generic Name Dose Route Start Last Admin Trade Name Freq PRN Reason Stop Dose Admin Albuterol Sulfate 1 amp 02/06/19 21:27 02/06/19 23:44 Ventolin 0.083% Nebulizer Soln - NEB 1 amp Q4H PRN Administration SHORT OF BREATH/WHEEZING Albuterol/Ipratropium 1 amp 02/07/19 08:00 02/08/19 07:20 Duoneb - NEB 1 amp RTID JAMIL Administration Baclofen 20 mg 02/06/19 22:00 02/07/19 22:53 Lioresal - GT 20 mg BID JAMIL Administration Budesonide/Formoterol Fumarate 2 puff 02/06/19 22:00 02/07/19 22:53 Symbicort 80/4.5mcg - IH 2 puff BID JAMIL Administration Calcium Carbonate/Cholecalciferol 1 tab 02/06/19 22:00 02/07/19 22:53 Os-Del 500+D - GT 1 tab BID JAMIL Administration Enoxaparin Sodium 40 mg 02/07/19 10:00 02/07/19 09:20 Lovenox - SQ 40 mg DAILY JAMIL Administration Hydrocortisone 1 applic 02/06/19 22:00 02/07/19 22:53 Hytone 1% Cream - TP 1 applic BID JAMIL Administration Magnesium Hydroxide 30 ml 02/06/19 22:00 02/07/19 22:52 Milk Of Magnesia - GT 30 ml HS JAMIL Administration Montelukast Sodium 10 mg 02/06/19 22:00 02/07/19 22:53 Singulair - GT 10 mg HS JAMIL Administration Multi-Ingredient Ointment 1 applic 02/05/19 22:00 02/07/19 22:53 Zinc Oxide TP 1 applic BID JAMIL Administration Non-Formulary Medication 1 each 02/07/19 10:00 Multivit-Min/Fa/Lycopen/Lutein [Vitrum 50 Plus Senior Tablet] GT DAILY JAMIL Phenobarbital 60 mg 02/05/19 22:00 02/07/19 22:52 Phenobarbital - GT 60 mg HS JAMIL Administration Phenobarbital 32.4 mg 02/06/19 21:27 Phenobarbital - GT ASDIR JAMIL Active Medications Albuterol Sulfate (Ventolin 0.083% Nebulizer Soln -) 1 amp NEB Q4H PRN PRN Reason: SHORT OF BREATH/WHEEZING Last Admin: 02/06/19 23:44 Dose: 1 amp Albuterol/Ipratropium (Duoneb -) 1 amp NEB RTID JAMIL Last Admin: 02/08/19 07:20 Dose: 1 amp Baclofen (Lioresal -) 20 mg GT BID [facility] Last Admin: 02/07/19 22:53 Dose: 20 mg Budesonide/Formoterol Fumarate (Symbicort 80/4.5mcg -) 2 puff IH BID [facility] Last Admin: 02/07/19 22:53 Dose: 2 puff Calcium Carbonate/Cholecalciferol (Os-Del 500+D -) 1 tab GT BID [facility] Last Admin: 02/07/19 22:53 Dose: 1 tab Enoxaparin Sodium (Lovenox -) 40 mg SQ DAILY [facility] Last Admin: 02/07/19 09:20 Dose: 40 mg Hydrocortisone (Hytone 1% Cream -) 1 applic TP BID [facility] Last Admin: 02/07/19 22:53 Dose: 1 applic Magnesium Hydroxide (Milk Of Magnesia -) 30 ml GT HS [facility] Last Admin: 02/07/19 22:52 Dose: 30 ml Montelukast Sodium (Singulair -) 10 mg GT HS [facility] Last Admin: 02/07/19 22:53 Dose: 10 mg Multi-Ingredient Ointment (Zinc Oxide) 1 applic TP BID [facility] Last Admin: 02/07/19 22:53 Dose: 1 applic Non-Formulary Medication (Multivit-Min/Fa/Lycopen/Lutein [Vitrum 50 Plus Senior Tablet]) 1 each GT DAILY JAMIL Phenobarbital (Phenobarbital -) 60 mg GT HS [facility] Last Admin: 02/07/19 22:52 Dose: 60 mg Phenobarbital (Phenobarbital -) 32.4 mg GT ASDIR [facility] ASSESSMENT/PLAN: This is a 38 year old woman with a history of asthma, seizure disorder, scoliosis, microcephaly, developmental delay, quadriplegia, GERD, keloids who presented to the ED from [facility] with wheezing. # Acute hypoxic respiratory failure secondary to asthma exacerbation - Completed SoluMedrol -Symbicort, Singulair, DuoNeb, albuterol as needed - Oxygen to maintain saturation >90% #Urinary retention -Ongoing issue for this pt - ? secondary to keloids - Loya inserted by urology #Microcephaly with developmental delay and quadriplegia - Baclofen # Seizure disorder - Continue Phenobarbital # Nutrition - Continue Jevity PEG feeds #Disposition - Medically stable to return to [place] - voiding trial here prior to discharge -Following discussion with Dr. Bloom, voiding trial should be done at hospital as [place] would likely send pt back in the event of void failure -Pt noted to have voided today, though nurses were unable to quantify. Bladder scan was unsuccessful Will repeat Visit type - Emergency Visit Emergency Visit: No - New Patient This patient is new to me today: Yes Date on this admission: 02/08/19 - Critical Care Critical Care patient: No ATTENDING PHYSICIAN STATEMENT I saw and evaluated the patient. I reviewed the resident's note and discussed the case with the resident. I agree with the resident's findings and plan as documented. SUBJECTIVE: OBJECTIVE: ASSESSMENT AND PLAN:
[2019-02-08] MEDS: ENOXAPARIN NA (PORCINE) 40 MG/0.4 ML DISP.SYRIN SQ SCH (10:24)
[2019-02-08] MEDS: BACLOFEN 10 MG TABLET (FP) GT SCH ×2 (10:25→21:35)
[2019-02-08] MEDS: CALCIUM 500MG/VIT-D 200 UNITS COMBO TABLET (FP) GT SCH ×2 (10:25→21:35)
[2019-02-08] MEDS: ZINC OXIDE 20% TOPICAL OINTMENT 30 GM TUBE TP SCH ×2 (10:26→21:36)
[2019-02-08] MEDS: HYDROCORTISONE 1% TOPICAL CREAM 30 GM TUBE TP SCH ×2 (10:27→21:36)
[2019-02-08] MEDS: BUDESONIDE/FORMETEROL FUMARATE 80/4.5 mcg INHALER IH SCH ×2 (12:06→21:36)
--- NOTE | 2019-02-08 12:39 | PN ---
Progress Note, Physician History of Present Illness: pulmonary awake non-verbal,comfortable,-resp disress on nasal cannula - Current Medication List Current Medications: Active Medications Albuterol Sulfate (Ventolin 0.083% Nebulizer Soln -) 1 amp NEB Q4H PRN PRN Reason: SHORT OF BREATH/WHEEZING Last Admin: 02/06/19 23:44 Dose: 1 amp Albuterol/Ipratropium (Duoneb -) 1 amp NEB RTID [facility] Last Admin: 02/08/19 07:20 Dose: 1 amp Baclofen (Lioresal -) 20 mg GT BID [facility] Last Admin: 02/08/19 10:25 Dose: 20 mg Budesonide/Formoterol Fumarate (Symbicort 80/4.5mcg -) 2 puff IH BID [facility] Last Admin: 02/07/19 22:53 Dose: 2 puff Calcium Carbonate/Cholecalciferol (Os-Del 500+D -) 1 tab GT BID [facility] Last Admin: 02/08/19 10:25 Dose: 1 tab Enoxaparin Sodium (Lovenox -) 40 mg SQ DAILY [facility] Last Admin: 02/08/19 10:24 Dose: 40 mg Hydrocortisone (Hytone 1% Cream -) 1 applic TP BID [facility] Last Admin: 02/08/19 10:27 Dose: 1 applic Magnesium Hydroxide (Milk Of Magnesia -) 30 ml GT HS [facility] Last Admin: 02/07/19 22:52 Dose: 30 ml Montelukast Sodium (Singulair -) 10 mg GT HS [facility] Last Admin: 02/07/19 22:53 Dose: 10 mg Multi-Ingredient Ointment (Zinc Oxide) 1 applic TP BID [facility] Last Admin: 02/08/19 10:26 Dose: 1 applic Non-Formulary Medication (Multivit-Min/Fa/Lycopen/Lutein [Vitrum 50 Plus Senior Tablet]) 1 each GT DAILY J[facility]IL Phenobarbital (Phenobarbital -) 60 mg GT HS [facility] Last Admin: 02/07/19 22:52 Dose: 60 mg Phenobarbital (Phenobarbital -) 32.4 mg GT ASDIR JAMIL - Objective Vital Signs: Vital Signs Temperature 98.3 F 02/08/19 10:39 Pulse Rate 91 H 02/08/19 10:39 Respiratory Rate 20 02/08/19 10:39 Blood Pressure 108/71 02/08/19 10:39 O2 Sat by Pulse Oximetry (%) 98 02/08/19 09:00 Constitutional: Yes: Calm, Thin Eyes: Yes: WNL HENT: Yes: WNL Neck: Yes: WNL Cardiovascular: Yes: Regular Rate and Rhythm, S1, S2 Respiratory: Yes: Rhonchi (few scattered rhonch) Gastrointestinal: Yes: Normal Bowel Sounds, Soft Extremities: Yes: Shortened, Other (contracted) Labs: Problem List - Problems (1) Acute respiratory failure Code(s): J96.00 - ACUTE RESPIRATORY FAILURE, UNSP W HYPOXIA OR HYPERCAPNIA Qualifiers: Respiratory failure complication: hypoxia Qualified Code(s): J96.01 - Acute respiratory failure with hypoxia (2) Hypoxia Code(s): R09.02 - HYPOXEMIA (3) Pneumonia Code(s): J18.9 - PNEUMONIA, UNSPECIFIED ORGANISM Qualifiers: Pneumonia type: due to unspecified organism Laterality: unspecified laterality Lung location: unspecified part of lung Qualified Code(s): J18.9 - Pneumonia, unspecified organism (4) Sepsis Code(s): A41.9 - SEPSIS, UNSPECIFIED ORGANISM Qualifiers: Sepsis type: sepsis due to unspecified organism Qualified Code(s): A41.9 - Sepsis, unspecified organism (5) Seizure disorder Code(s): G40.909 - EPILEPSY, UNSP, NOT INTRACTABLE, WITHOUT STATUS EPILEPTICUS Assessment/Plan ASSESSMENT AND PLAN: Acute Hypoxic Respiratory Failure Improved r/o Aspiration Pneumonitis vs Acute Bronchospasm Cerebral Palsy Mental Retardation Functional Quadriplegia Seizure Disorder - continue inhaled bronchodilators - O2 to keep SpO2 >90% - antiepileptics - enteral feeds - aspiration precautions - DVT prophylaxis - chest x-ray stepan ALVARADO
--- NOTE | 2019-02-08 13:21 | PN ---
Teaching Attending Note Name of Resident: Chau Avila ATTENDING PHYSICIAN STATEMENT I saw and evaluated the patient. I reviewed the resident's note and discussed the case with the resident. I agree with the resident's findings and plan as documented. SUBJECTIVE: Patient appears comfortable. OBJECTIVE: Vital Signs Period Temp Pulse Resp BP Sys/Holley Pulse Ox Last 24 Hr 97.3 F-98.3 F 79-94 16-22 104-124/61-75 98 GENERAL: The patient is awake, alert, in no acute distress. LUNGS: Breath sounds equal, clear to auscultation bilaterally, no wheezes, no crackles, no accessory muscle use. HEART: Regular rate and rhythm, S1, S2 without murmur, rub or gallop. ABDOMEN: Soft, nondistended, normoactive bowel sounds, PEG in place and site is clean. EXTREMITIES: Contracted, 2+ pulses, warm, well-perfused, no edema. Current Medications Generic Name Dose Route Start Last Admin Trade Name Freq PRN Reason Stop Dose Admin Albuterol Sulfate 1 amp 02/06/19 21:27 02/06/19 23:44 Ventolin 0.083% Nebulizer Soln - NEB 1 amp Q4H PRN Administration SHORT OF BREATH/WHEEZING Albuterol/Ipratropium 1 amp 02/07/19 08:00 02/08/19 07:20 Duoneb - NEB 1 amp RTID JAMIL Administration Baclofen 20 mg 02/06/19 22:00 02/08/19 10:25 Lioresal - GT 20 mg BID JAMIL Administration Budesonide/Formoterol Fumarate 2 puff 02/06/19 22:00 02/07/19 22:53 Symbicort 80/4.5mcg - IH 2 puff BID JAMIL Administration Calcium Carbonate/Cholecalciferol 1 tab 02/06/19 22:00 02/08/19 10:25 Os-Del 500+D - GT 1 tab BID JAMIL Administration Enoxaparin Sodium 40 mg 02/07/19 10:00 02/08/19 10:24 Lovenox - SQ 40 mg DAILY JAMIL Administration Hydrocortisone 1 applic 02/06/19 22:00 02/08/19 10:27 Hytone 1% Cream - TP 1 applic BID JAMIL Administration Magnesium Hydroxide 30 ml 02/06/19 22:00 02/07/19 22:52 Milk Of Magnesia - GT 30 ml HS JAMIL Administration Montelukast Sodium 10 mg 02/06/19 22:00 02/07/19 22:53 Singulair - GT 10 mg HS JAMIL Administration Multi-Ingredient Ointment 1 applic 02/05/19 22:00 02/08/19 10:26 Zinc Oxide TP 1 applic BID JAMIL Administration Non-Formulary Medication 1 each 02/07/19 10:00 Multivit-Min/Fa/Lycopen/Lutein [Vitrum 50 Plus Senior Tablet] GT DAILY JAMIL Phenobarbital 60 mg 02/05/19 22:00 02/07/19 22:52 Phenobarbital - GT 60 mg HS JAMIL Administration Phenobarbital 32.4 mg 02/06/19 21:27 Phenobarbital - GT ASDIR JAMIL ASSESSMENT AND PLAN: This is a 38 year old woman with a history of asthma, seizure disorder, scoliosis, microcephaly, developmental delay, quadriplegia, GERD, keloids who presented to the ED from [facility] with wheezing. 1. Acute hypoxic respiratory failure secondary to asthma exacerbation - Completed SoluMedrol - Continue Symbicort, Singulair, DuoNeb, albuterol as needed - Oxygen to maintain saturation >90% 2. Urinary retention - ? secondary to keloids - Loya inserted by urology 3. Microcephaly with developmental delay and quadriplegia - Continue Baclofen 4. Seizure disorder - Continue Phenobarbital 5. Nutrition - Continue Jevity PEG feeds 6. Disposition - Medically stable to return to [place] - ? voiding trial here prior to discharge
[2019-02-08] MEDS: PHENobarbital 30 MG TABLET GT SCH (21:35)
[2019-02-08] MEDS: MAGNESIUM HYDROX 2400MG/30ML ORAL SUSPENSION 30 ML CUP GT SCH (21:35)
[2019-02-08] MEDS: MONTELUKAST NA 10 MG TABLET GT SCH (21:35)
[2019-02-09] MEDS: ALBUTEROL SO4 0.083% IH SOL 2.5 MG/3 ML VIAL.NEB. NEB PRN (04:39)
[2019-02-09 07:09] LABS: BASO % 0.4 % (0-2.0); EOS % 13.4 % (0-4.5); HEMATOCRIT 43.5 % (32.4-45.2); HEMOGLOBIN 14.5 GM/dL (10.7-15.3); LYMPH % 14.7 % (8-40); MCH 28.4 pg (25.7-33.7); MCHC 33.4 g/dl (32.0-36.0); MEAN CELL VOLUME 84.9 fl (80-96); MEAN PLT VOLUME 8.6 fl (7.5-11.1); MONO % 9.1 % (3.8-10.2); NEUT % 62.4 % (42.8-82.8); PLATELET COUNT 303 K/MM3 (134-434); RBC 5.12 M/mm3 (3.60-5.2); RDW 14.9 % (11.6-15.6)
[2019-02-09 07:33] LABS: ALBUMIN 3.2 g/dl (3.4-5.0); BILIRUBIN,TOTAL 0.2 mg/dL (0.2-1); BLOOD UREA NITROGEN 10.4 mg/dL (7-18); CALCIUM 9.4 mg/dL (8.5-10.1); CREATININE 0.4 mg/dL (0.55-1.3); POTASSIUM 4.3 mmol/L (3.5-5.1)
--- NOTE | 2019-02-09 07:39 | PN ---
Physical Exam: SUBJECTIVE: Patient seen and examined at bedside. Appears uncomfortable. OBJECTIVE: Vital Signs Period Temp Pulse Resp BP Sys/Holley Pulse Ox Last 24 Hr 97.9 F-98.3 F 78-110 20-20 108-133/71-87 98-98 GEN: contracted with numerous keloids HEENT: looks around room spontaneously Neck: prominent keloids Cardio: rrr, normal s1s2, no mrg Lungs: cta Abd: soft, nondistended Extremities: contracted Laboratory Results - last 24 hr 02/09/19 06:28 Sodium 139 Potassium 4.3 Chloride 106 Carbon Dioxide 27 Anion Gap 6 L BUN 10.4 Creatinine 0.4 L Est GFR (CKD-EPI)AfAm 153.14 Est GFR (CKD-EPI)NonAf 132.13 Random Glucose 120 H Calcium 9.4 Total Bilirubin 0.2 AST 17 ALT 25 Alkaline Phosphatase 75 Total Protein 7.0 Albumin 3.2 L Active Medications Generic Name Dose Route Start Last Admin Trade Name Freq PRN Reason Stop Dose Admin Albuterol Sulfate 1 amp 02/06/19 21:27 02/09/19 04:39 Ventolin 0.083% Nebulizer Soln - NEB 1 amp Q4H PRN Administration SHORT OF BREATH/WHEEZING Albuterol/Ipratropium 1 amp 02/07/19 08:00 02/08/19 21:21 Duoneb - NEB 1 amp RTID JAMIL Administration Baclofen 20 mg 02/06/19 22:00 02/08/19 21:35 Lioresal - GT 20 mg BID JAMIL Administration Budesonide/Formoterol Fumarate 2 puff 02/06/19 22:00 02/08/19 21:36 Symbicort 80/4.5mcg - IH 2 puff BID JAMIL Administration Calcium Carbonate/Cholecalciferol 1 tab 02/06/19 22:00 02/08/19 21:35 Os-Del 500+D - GT 1 tab BID JAMIL Administration Enoxaparin Sodium 40 mg 02/07/19 10:00 02/08/19 10:24 Lovenox - SQ 40 mg DAILY JAMIL Administration Hydrocortisone 1 applic 02/06/19 22:00 02/08/19 21:36 Hytone 1% Cream - TP 1 applic BID JAMIL Administration Magnesium Hydroxide 30 ml 02/06/19 22:00 02/08/19 21:35 Milk Of Magnesia - GT 30 ml HS JAMIL Administration Montelukast Sodium 10 mg 02/06/19 22:00 02/08/19 21:35 Singulair - GT 10 mg HS JAMIL Administration Multi-Ingredient Ointment 1 applic 02/05/19 22:00 02/08/19 21:36 Zinc Oxide TP 1 applic BID JAMIL Administration Non-Formulary Medication 1 each 02/07/19 10:00 Multivit-Min/Fa/Lycopen/Lutein [Vitrum 50 Plus Senior Tablet] GT DAILY JAMIL Phenobarbital 60 mg 02/05/19 22:00 02/08/19 21:35 Phenobarbital - GT 60 mg HS JAMIL Administration Phenobarbital 32.4 mg 02/06/19 21:27 Phenobarbital - GT ASDIR JAMIL Active Medications Albuterol Sulfate (Ventolin 0.083% Nebulizer Soln -) 1 amp NEB Q4H PRN PRN Reason: SHORT OF BREATH/WHEEZING Last Admin: 02/09/19 04:39 Dose: 1 amp Albuterol/Ipratropium (Duoneb -) 1 amp NEB RTID [facility] Last Admin: 02/08/19 21:21 Dose: 1 amp Baclofen (Lioresal -) 20 mg GT BID [facility] Last Admin: 02/08/19 21:35 Dose: 20 mg Budesonide/Formoterol Fumarate (Symbicort 80/4.5mcg -) 2 puff IH BID [facility] Last Admin: 02/08/19 21:36 Dose: 2 puff Calcium Carbonate/Cholecalciferol (Os-Del 500+D -) 1 tab GT BID [facility] Last Admin: 02/08/19 21:35 Dose: 1 tab Enoxaparin Sodium (Lovenox -) 40 mg SQ DAILY [facility] Last Admin: 02/08/19 10:24 Dose: 40 mg Hydrocortisone (Hytone 1% Cream -) 1 applic TP BID [facility] Last Admin: 02/08/19 21:36 Dose: 1 applic Magnesium Hydroxide (Milk Of Magnesia -) 30 ml GT HS [facility] Last Admin: 02/08/19 21:35 Dose: 30 ml Montelukast Sodium (Singulair -) 10 mg GT HS [facility] Last Admin: 02/08/19 21:35 Dose: 10 mg Multi-Ingredient Ointment (Zinc Oxide) 1 applic TP BID [facility] Last Admin: 02/08/19 21:36 Dose: 1 applic Non-Formulary Medication (Multivit-Min/Fa/Lycopen/Lutein [Vitrum 50 Plus Senior Tablet]) 1 each GT DAILY JAMIL Phenobarbital (Phenobarbital -) 60 mg GT HS [facility] Last Admin: 02/08/19 21:35 Dose: 60 mg Phenobarbital (Phenobarbital -) 32.4 mg GT ASDIR JAMIL ASSESSMENT/PLAN: This is a 38 year old woman with a history of asthma, seizure disorder, scoliosis, microcephaly, developmental delay, quadriplegia, GERD, keloids who presented to the ED from [facility] with wheezing. # Acute hypoxic respiratory failure secondary to asthma exacerbation - Completed SoluMedrol -Symbicort, Singulair, DuoNeb, albuterol as needed - Oxygen to maintain saturation >90% #Urinary retention -Ongoing issue for this pt - ? secondary to keloids - Loya inserted by urology #Microcephaly with developmental delay and quadriplegia - Baclofen # Seizure disorder - Continue Phenobarbital # Nutrition - Continue Jevity PEG feeds #Disposition - Medically stable to return to [place] - voiding trial here prior to discharge successful Visit type - Emergency Visit Emergency Visit: No - New Patient This patient is new to me today: No - Critical Care Critical Care patient: No ATTENDING PHYSICIAN STATEMENT I saw and evaluated the patient. I reviewed the resident's note and discussed the case with the resident. I agree with the resident's findings and plan as documented. SUBJECTIVE: OBJECTIVE: ASSESSMENT AND PLAN:
[2019-02-09] MEDS: ALBUTEROL SO4 2.5/IPRATROPIUM 0.5 INH SOL 3 ML VIAL.NEB. NEB SCH ×3 (09:27→20:36)
[2019-02-09] MEDS: CALCIUM 500MG/VIT-D 200 UNITS COMBO TABLET (FP) GT SCH ×2 (09:34→21:10)
[2019-02-09] MEDS: BUDESONIDE/FORMETEROL FUMARATE 80/4.5 mcg INHALER IH SCH ×2 (09:34→21:11)
[2019-02-09] MEDS: HYDROCORTISONE 1% TOPICAL CREAM 30 GM TUBE TP SCH ×2 (09:34→21:11)
[2019-02-09] MEDS: BACLOFEN 10 MG TABLET (FP) GT SCH ×2 (09:34→21:10)
[2019-02-09] MEDS: ENOXAPARIN NA (PORCINE) 40 MG/0.4 ML DISP.SYRIN SQ SCH (09:34)
[2019-02-09] MEDS: ZINC OXIDE 20% TOPICAL OINTMENT 30 GM TUBE TP SCH ×2 (09:34→21:11)
--- NOTE | 2019-02-09 12:11 | PN ---
Teaching Attending Note Name of Resident: Chau Avila ATTENDING PHYSICIAN STATEMENT I saw and evaluated the patient. I reviewed the resident's note and discussed the case with the resident. I agree with the resident's findings and plan as documented with exceptions below. SUBJECTIVE: patient seen and examined, non verbal, unable to assess for ROS. OBJECTIVE: Vital Signs Period Temp Pulse Resp BP Sys/Holley Pulse Ox Last 24 Hr 97.5 F-98.0 F 78-110 20-20 121-142/75-87 98-100 Intake & Output 02/06/19 02/07/19 02/08/19 02/09/19 23:59 23:59 23:59 23:59 Intake Total 1532 790 700 Output Total 320 1150 1150 Balance 1212 -360 -450 Weight 77 lb General: sitting in bed, mild tachypnea, non verbal Neck: keloid Chest: poor exam due to lack of co-operation, occasional wheezing. unable to appreciate rales Abdomen:Soft, NT Extremities: contractures Home Medications Medication Instructions Recorded Acetaminophen Oral Solution 650 mg GT Q6H PRN 08/08/18 [Tylenol 160mg/5mL Oral Solution -] Baclofen 20 mg GT BID 08/08/18 Budesonide/Formeterol Fumarate 2 inh PO BID 08/08/18 [SYMBICORT 80/4.5mcg -] Calcium Carbonate/Vitamin D3 1 each GT BID 08/08/18 [Oyster Shell 500-Vit D3 200 Pk] Clotrimazole 45 appful TD BID 08/08/18 Hydrocortisone 1% Cream [Hytone 1% 1 applic TP BID 08/08/18 Cream -] Ipratropium/Albuterol Sulfate 3 ml IH QID 08/08/18 [Iprat-Albut 0.5-3(2.5) mg/3 ml] Magnesium Hydrox 2400MG/30Ml [Milk 30 ml GT HS 08/08/18 of Magnesia -] Montelukast Na [Singulair -] 10 mg GT HS 08/08/18 Multivit-Min/FA/Lycopen/Lutein 1 each GT DAILY 08/08/18 [Vitrum 50 Plus Senior Tablet] Phenobarbital 32.4 mg GT ASDIR 08/08/18 Phenobarbital 64.8 mg GT HS 08/08/18 Albuterol 0.083% Nebulizer Kathleen 1 amp NEB Q4H PRN #7 vial 12/25/18 [Ventolin 0.083% Nebulizer Soln -] Lactose-Reduced Food/Fiber [Jevity 1,000 ml GT ASDIR 02/04/19 1.5 Del Liquid] Active Medications Albuterol Sulfate (Ventolin 0.083% Nebulizer Soln -) 1 amp NEB Q4H PRN PRN Reason: SHORT OF BREATH/WHEEZING Last Admin: 02/09/19 04:39 Dose: 1 amp Albuterol/Ipratropium (Duoneb -) 1 amp NEB RTID [facility] Last Admin: 02/09/19 09:27 Dose: 1 amp Baclofen (Lioresal -) 20 mg GT BID [facility] Last Admin: 02/09/19 09:34 Dose: 20 mg Budesonide/Formoterol Fumarate (Symbicort 80/4.5mcg -) 2 puff IH BID [facility] Last Admin: 02/09/19 09:34 Dose: Not Given Calcium Carbonate/Cholecalciferol (Os-Del 500+D -) 1 tab GT BID [facility] Last Admin: 02/09/19 09:34 Dose: 1 tab Enoxaparin Sodium (Lovenox -) 40 mg SQ DAILY [facility] Last Admin: 02/09/19 09:34 Dose: 40 mg Hydrocortisone (Hytone 1% Cream -) 1 applic TP BID [facility] Last Admin: 02/09/19 09:34 Dose: 1 applic Magnesium Hydroxide (Milk Of Magnesia -) 30 ml GT HS [facility] Last Admin: 02/08/19 21:35 Dose: 30 ml Montelukast Sodium (Singulair -) 10 mg GT HS [facility] Last Admin: 02/08/19 21:35 Dose: 10 mg Multi-Ingredient Ointment (Zinc Oxide) 1 applic TP BID [facility] Last Admin: 02/09/19 09:34 Dose: 1 applic Non-Formulary Medication (Multivit-Min/Fa/Lycopen/Lutein [Vitrum 50 Plus Senior Tablet]) 1 each GT DAILY [facility] Phenobarbital (Phenobarbital -) 60 mg GT HS [facility] Last Admin: 02/08/19 21:35 Dose: 60 mg Phenobarbital (Phenobarbital -) 32.4 mg GT ASDIR [facility] Laboratory Results - last 24 hr 02/09/19 02/09/19 06:28 06:28 WBC 10.0 RBC 5.12 Hgb 14.5 Hct 43.5 MCV 84.9 MCH 28.4 MCHC 33.4 RDW 14.9 Plt Count 303 MPV 8.6 Absolute Neuts (auto) 6.2 Neutrophils % 62.4 D Lymphocytes % 14.7 D Monocytes % 9.1 D Eosinophils % 13.4 H D Basophils % 0.4 Nucleated RBC % 0 Sodium 139 Potassium 4.3 Chloride 106 Carbon Dioxide 27 Anion Gap 6 L BUN 10.4 Creatinine 0.4 L Est GFR (CKD-EPI)AfAm 153.14 Est GFR (CKD-EPI)NonAf 132.13 Random Glucose 120 H Calcium 9.4 Total Bilirubin 0.2 AST 17 ALT 25 Alkaline Phosphatase 75 Total Protein 7.0 Albumin 3.2 L CXr from 02/06 results and images reviewed Microbiology 02/04/19 12:57 Blood - Peripheral Venous Blood Culture - Preliminary NO GROWTH OBTAINED AFTER 96 HOURS, INCUBATION TO CONTINUE FOR 1 DAYS. 02/04/19 12:57 Blood - Peripheral Venous Blood Culture - Preliminary NO GROWTH OBTAINED AFTER 96 HOURS, INCUBATION TO CONTINUE FOR 1 DAYS. 02/04/19 18:01 Urine - Urine - Catheterized Urine Culture - Final NO GROWTH OBTAINED ASSESSMENT AND PLAN: 38 year old woman with a history of asthma, seizure disorder, scoliosis, microcephaly, developmental delay, quadriplegia, GERD, keloids who presented to the ED from [facility] with wheezing. - Acute hypoxic respiratory failure secondary to asthma exacerbation - Urinary retention - Microcephaly with developmental delay and quadriplegia - Seizure disorder Plan: completed solumedrol. Loya d/kaitlynn 02/08, voiding freely. Outpatient urology follow up. Continue home meds and Jevity feeds D/c back to [place] today.
--- NOTE | 2019-02-09 12:59 | PN ---
Progress Note (short form) - Note Progress Note: PULMONARY Alert, nonverbal. No fevers recorded. Vital Signs Period Temp Pulse Resp BP Sys/Holley Pulse Ox Last 24 Hr 97.5 F-98.0 F 78-110 20-20 121-142/75-87 98-100 Gen: NAD at rest Heart: RRR Lung: decreased breath sounds at the bases Abd: soft, nontender Ext: no edema, contracted CBC, BMP 02/09/19 06:28 02/09/19 06:28 Active Medications Albuterol Sulfate (Ventolin 0.083% Nebulizer Soln -) 1 amp NEB Q4H PRN PRN Reason: SHORT OF BREATH/WHEEZING Last Admin: 02/09/19 04:39 Dose: 1 amp Albuterol/Ipratropium (Duoneb -) 1 amp NEB RTID [facility] Last Admin: 02/09/19 09:27 Dose: 1 amp Baclofen (Lioresal -) 20 mg GT BID [facility] Last Admin: 02/09/19 09:34 Dose: 20 mg Budesonide/Formoterol Fumarate (Symbicort 80/4.5mcg -) 2 puff IH BID [facility] Last Admin: 02/09/19 09:34 Dose: Not Given Calcium Carbonate/Cholecalciferol (Os-Del 500+D -) 1 tab GT BID [facility] Last Admin: 02/09/19 09:34 Dose: 1 tab Enoxaparin Sodium (Lovenox -) 40 mg SQ DAILY [facility] Last Admin: 02/09/19 09:34 Dose: 40 mg Hydrocortisone (Hytone 1% Cream -) 1 applic TP BID [facility] Last Admin: 02/09/19 09:34 Dose: 1 applic Magnesium Hydroxide (Milk Of Magnesia -) 30 ml GT HS [facility] Last Admin: 02/08/19 21:35 Dose: 30 ml Montelukast Sodium (Singulair -) 10 mg GT HS [facility] Last Admin: 02/08/19 21:35 Dose: 10 mg Multi-Ingredient Ointment (Zinc Oxide) 1 applic TP BID [facility] Last Admin: 02/09/19 09:34 Dose: 1 applic Non-Formulary Medication (Multivit-Min/Fa/Lycopen/Lutein [Vitrum 50 Plus Senior Tablet]) 1 each GT DAILY [facility]IL Phenobarbital (Phenobarbital -) 60 mg GT HS [facility] Last Admin: 02/08/19 21:35 Dose: 60 mg Phenobarbital (Phenobarbital -) 32.4 mg GT ASDIR JAMIL A/P Acute Hypoxic Respiratory Failure r/o Aspiration Pneumonitis vs Acute Bronchospasm Cerebral Palsy Mental Retardation Functional Quadriplegia Seizure Disorder - continue inhaled bronchodilators - monitoring off steroids, antibiotics - O2 to keep SpO2 >90% - antiepileptics - enteral feeds - aspiration precautions - DVT prophylaxis
[2019-02-09] MEDS: MAGNESIUM HYDROX 2400MG/30ML ORAL SUSPENSION 30 ML CUP GT SCH (21:10)
[2019-02-09] MEDS: PHENobarbital 30 MG TABLET GT SCH (21:11)
[2019-02-09] MEDS: MONTELUKAST NA 10 MG TABLET GT SCH (21:11)
[2019-02-10] MEDS: ALBUTEROL SO4 2.5/IPRATROPIUM 0.5 INH SOL 3 ML VIAL.NEB. NEB SCH ×3 (08:30→20:40)
[2019-02-10] MEDS: ENOXAPARIN NA (PORCINE) 40 MG/0.4 ML DISP.SYRIN SQ SCH (09:43)
[2019-02-10] MEDS: BACLOFEN 10 MG TABLET (FP) GT SCH ×2 (09:43→22:49)
[2019-02-10] MEDS: CALCIUM 500MG/VIT-D 200 UNITS COMBO TABLET (FP) GT SCH ×2 (09:44→22:49)
[2019-02-10] MEDS: HYDROCORTISONE 1% TOPICAL CREAM 30 GM TUBE TP SCH ×2 (09:46→22:51)
[2019-02-10] MEDS: ZINC OXIDE 20% TOPICAL OINTMENT 30 GM TUBE TP SCH ×2 (09:46→22:52)
[2019-02-10] MEDS: BUDESONIDE/FORMETEROL FUMARATE 80/4.5 mcg INHALER IH SCH ×2 (09:48→22:49)
[2019-02-10] MEDS: methylPREDNISolone NA SUCC 40 MG/1 ML VIAL IVPUSH SCH ×2 (10:35→22:50)
--- NOTE | 2019-02-10 11:28 | PN ---
Progress Note (short form) - Note Progress Note: PULMONARY Alert, nonverbal. No fevers recorded. Vital Signs Period Temp Pulse Resp BP Sys/Holley Pulse Ox Last 24 Hr 97.6 F-98.9 F 99-118 18-18 103-119/63-78 96-96 Gen: NAD at rest Heart: RRR Lung: decreased breath sounds at the bases Abd: soft, nontender Ext: no edema, contracted CBC, BMP 02/09/19 06:28 02/09/19 06:28 Active Medications Albuterol Sulfate (Ventolin 0.083% Nebulizer Soln -) 1 amp NEB Q4H PRN PRN Reason: SHORT OF BREATH/WHEEZING Last Admin: 02/09/19 04:39 Dose: 1 amp Albuterol/Ipratropium (Duoneb -) 1 amp NEB RTID [facility] Last Admin: 02/09/19 20:36 Dose: 1 amp Baclofen (Lioresal -) 20 mg GT BID [facility] Last Admin: 02/10/19 09:43 Dose: 20 mg Budesonide/Formoterol Fumarate (Symbicort 80/4.5mcg -) 2 puff IH BID [facility] Last Admin: 02/10/19 09:48 Dose: 2 puff Calcium Carbonate/Cholecalciferol (Os-Del 500+D -) 1 tab GT BID [facility] Last Admin: 02/10/19 09:44 Dose: 1 tab Enoxaparin Sodium (Lovenox -) 40 mg SQ DAILY [facility] Last Admin: 02/10/19 09:43 Dose: 40 mg Hydrocortisone (Hytone 1% Cream -) 1 applic TP BID [facility] Last Admin: 02/10/19 09:46 Dose: 1 applic Magnesium Hydroxide (Milk Of Magnesia -) 30 ml GT HS [facility] Last Admin: 02/09/19 21:10 Dose: 30 ml Methylprednisolone Sodium Succinate (Solu-Medrol -) 40 mg IVPUSH BID [facility] Last Admin: 02/10/19 10:35 Dose: 40 mg Montelukast Sodium (Singulair -) 10 mg GT HS [facility] Last Admin: 02/09/19 21:11 Dose: 10 mg Multi-Ingredient Ointment (Zinc Oxide) 1 applic TP BID [facility] Last Admin: 02/10/19 09:46 Dose: 1 applic Phenobarbital (Phenobarbital -) 60 mg GT HS [facility] Last Admin: 02/09/19 21:11 Dose: 60 mg Phenobarbital (Phenobarbital -) 32.4 mg GT ASDIR [facility] A/P Acute Hypoxic Respiratory Failure improved r/o Aspiration Pneumonitis vs Acute Bronchospasm Cerebral Palsy Mental Retardation Functional Quadriplegia Seizure Disorder - continue inhaled bronchodilators - monitoring off steroids, antibiotics - O2 to keep SpO2 >90% - antiepileptics - enteral feeds - aspiration precautions - DVT prophylaxis
--- NOTE | 2019-02-10 14:18 | PN ---
Teaching Attending Note Name of Resident: Chau Avila ATTENDING PHYSICIAN STATEMENT I saw and evaluated the patient. I reviewed the resident's note and discussed the case with the resident. I agree with the resident's findings and plan as documented with exceptions below. SUBJECTIVE: Patient seen and examined. non verbal, unable to assess for ROS. OBJECTIVE: Vital Signs Period Temp Pulse Resp BP Sys/Holley Pulse Ox Last 24 Hr 97.6 F-98.9 F 99-118 18-18 103-119/63-78 95-96 Intake & Output 02/07/19 02/08/19 02/09/19 02/10/19 23:59 23:59 23:59 23:59 Intake Total 790 700 0 Output Total 1150 1150 Balance -360 -450 0 General: lying in bed, tachypneic, use of accessory muscles of resapiration Chest: poor effort, scattered wheezing neck: keloid, Abdomen:Soft, pos bowel sounds Extremities: contractures Home Medications Medication Instructions Recorded Acetaminophen Oral Solution 650 mg GT Q6H PRN 08/08/18 [Tylenol 160mg/5mL Oral Solution -] Baclofen 20 mg GT BID 08/08/18 Budesonide/Formeterol Fumarate 2 inh PO BID 08/08/18 [SYMBICORT 80/4.5mcg -] Calcium Carbonate/Vitamin D3 1 each GT BID 08/08/18 [Oyster Shell 500-Vit D3 200 Pk] Clotrimazole 45 appful TD BID 08/08/18 Hydrocortisone 1% Cream [Hytone 1% 1 applic TP BID 08/08/18 Cream -] Ipratropium/Albuterol Sulfate 3 ml IH QID 08/08/18 [Iprat-Albut 0.5-3(2.5) mg/3 ml] Magnesium Hydrox 2400MG/30Ml [Milk 30 ml GT HS 08/08/18 of Magnesia -] Montelukast Na [Singulair -] 10 mg GT HS 08/08/18 Multivit-Min/FA/Lycopen/Lutein 1 each GT DAILY 08/08/18 [Vitrum 50 Plus Senior Tablet] Phenobarbital 32.4 mg GT ASDIR 08/08/18 Phenobarbital 64.8 mg GT HS 08/08/18 Albuterol 0.083% Nebulizer Kathleen 1 amp NEB Q4H PRN #7 vial 12/25/18 [Ventolin 0.083% Nebulizer Soln -] Lactose-Reduced Food/Fiber [Jevity 1,000 ml GT ASDIR 02/04/19 1.5 Del Liquid] Active Medications Albuterol Sulfate (Ventolin 0.083% Nebulizer Soln -) 1 amp NEB Q4H PRN PRN Reason: SHORT OF BREATH/WHEEZING Last Admin: 02/09/19 04:39 Dose: 1 amp Albuterol/Ipratropium (Duoneb -) 1 amp NEB RTID [facility] Last Admin: 02/10/19 08:30 Dose: 1 amp Baclofen (Lioresal -) 20 mg GT BID [facility] Last Admin: 02/10/19 09:43 Dose: 20 mg Budesonide/Formoterol Fumarate (Symbicort 80/4.5mcg -) 2 puff IH BID [facility] Last Admin: 02/10/19 09:48 Dose: 2 puff Calcium Carbonate/Cholecalciferol (Os-Del 500+D -) 1 tab GT BID [facility] Last Admin: 02/10/19 09:44 Dose: 1 tab Enoxaparin Sodium (Lovenox -) 40 mg SQ DAILY [facility] Last Admin: 02/10/19 09:43 Dose: 40 mg Hydrocortisone (Hytone 1% Cream -) 1 applic TP BID [facility] Last Admin: 02/10/19 09:46 Dose: 1 applic Magnesium Hydroxide (Milk Of Magnesia -) 30 ml GT HS [facility] Last Admin: 02/09/19 21:10 Dose: 30 ml Methylprednisolone Sodium Succinate (Solu-Medrol -) 40 mg IVPUSH BID [facility] Last Admin: 02/10/19 10:35 Dose: 40 mg Montelukast Sodium (Singulair -) 10 mg GT HS [facility] Last Admin: 02/09/19 21:11 Dose: 10 mg Multi-Ingredient Ointment (Zinc Oxide) 1 applic TP BID [facility] Last Admin: 02/10/19 09:46 Dose: 1 applic Phenobarbital (Phenobarbital -) 60 mg GT HS [facility] Last Admin: 02/09/19 21:11 Dose: 60 mg Phenobarbital (Phenobarbital -) 32.4 mg GT ASDIR [facility] CXR images and results reviewed ASSESSMENT AND PLAN: 38 year old woman with a history of asthma, seizure disorder, scoliosis, microcephaly, developmental delay, quadriplegia, GERD, keloids who presented to the ED from [facility] with wheezing. - Acute hypoxic respiratory failure secondary to asthma exacerbation - Urinary retention - Microcephaly with developmental delay and quadriplegia - Seizure disorder Plan: Wheezy today, will place on IV solumedrol x 24 hours. Transition to PO with taper in Am if improves. Oxygenating well on room air. CXR unchanged. Continue home meds and feeds Loya d/kaitlynn, no concerns for retention Plan for d/c back to [place] on po steroids if clinical improvement. Discussed with nursing.
--- NOTE | 2019-02-10 17:22 | PN ---
Physical Exam: SUBJECTIVE: Patient seen and examined at bedside. Comfortable this morning. Later this afternoon, pt was reportedly wheezing. OBJECTIVE: Vital Signs Period Temp Pulse Resp BP Sys/Holley Pulse Ox Last 24 Hr 97.6 F-98.9 F 99-104 18-18 103-119/63-71 95-96 GEN: contracted with numerous keloids HEENT: looks around room spontaneously Neck: prominent keloids Cardio: rrr, normal s1s2, no mrg Lungs: cta. No wheezing Abd: soft, nondistended Extremities: contracted Active Medications Generic Name Dose Route Start Last Admin Trade Name Freq PRN Reason Stop Dose Admin Albuterol Sulfate 1 amp 02/06/19 21:27 02/09/19 04:39 Ventolin 0.083% Nebulizer Soln - NEB 1 amp Q4H PRN Administration SHORT OF BREATH/WHEEZING Albuterol/Ipratropium 1 amp 02/07/19 08:00 02/10/19 14:52 Duoneb - NEB 1 amp RTID [facility] Administration Baclofen 20 mg 02/06/19 22:00 02/10/19 09:43 Lioresal - GT 20 mg BID [facility] Administration Budesonide/Formoterol Fumarate 2 puff 02/06/19 22:00 02/10/19 09:48 Symbicort 80/4.5mcg - IH 2 puff BID [facility] Administration Calcium Carbonate/Cholecalciferol 1 tab 02/06/19 22:00 02/10/19 09:44 Os-Del 500+D - GT 1 tab BID [facility] Administration Enoxaparin Sodium 40 mg 02/07/19 10:00 02/10/19 09:43 Lovenox - SQ 40 mg DAILY [facility] Administration Hydrocortisone 1 applic 02/06/19 22:00 02/10/19 09:46 Hytone 1% Cream - TP 1 applic BID [facility] Administration Magnesium Hydroxide 30 ml 02/06/19 22:00 02/09/19 21:10 Milk Of Magnesia - GT 30 ml HS [facility] Administration Methylprednisolone Sodium Succinate 40 mg 02/10/19 10:30 02/10/19 10:35 Solu-Medrol - IVPUSH 40 mg BID [facility] Administration Montelukast Sodium 10 mg 02/06/19 22:00 02/09/19 21:11 Singulair - GT 10 mg HS [facility] Administration Multi-Ingredient Ointment 1 applic 02/05/19 22:00 02/10/19 09:46 Zinc Oxide TP 1 applic BID [facility] Administration Phenobarbital 60 mg 02/05/19 22:00 02/09/19 21:11 Phenobarbital - GT 60 mg HS [facility] Administration Phenobarbital 32.4 mg 02/06/19 21:27 Phenobarbital - GT ASDIR [facility] ASSESSMENT/PLAN: This is a 38 year old woman with a history of asthma, seizure disorder, scoliosis, microcephaly, developmental delay, quadriplegia, GERD, keloids who presented to the ED from [facility] with wheezing. # Acute hypoxic respiratory failure secondary to asthma exacerbation - Completed SoluMedrol -Symbicort, Singulair, DuoNeb, albuterol as needed - Oxygen to maintain saturation >90% -pt was wheezing today. ? d/c tomorrow #Urinary retention: RESOLVED -Ongoing issue for this pt - ? secondary to keloids - Loya inserted by urology #Microcephaly with developmental delay and quadriplegia - Baclofen # Seizure disorder - Continue Phenobarbital # Nutrition - Continue Jevity PEG feeds Visit type - Emergency Visit Emergency Visit: No - New Patient This patient is new to me today: No - Critical Care Critical Care patient: No ATTENDING PHYSICIAN STATEMENT I saw and evaluated the patient. I reviewed the resident's note and discussed the case with the resident. I agree with the resident's findings and plan as documented. SUBJECTIVE: OBJECTIVE: ASSESSMENT AND PLAN:
[2019-02-10] MEDS: MONTELUKAST NA 10 MG TABLET GT SCH (22:49)
[2019-02-10] MEDS: MAGNESIUM HYDROX 2400MG/30ML ORAL SUSPENSION 30 ML CUP GT SCH (22:49)
[2019-02-10] MEDS: PHENobarbital 30 MG TABLET GT SCH (22:49)
--- NOTE | 2019-02-11 06:47 | PN ---
Physical Exam: SUBJECTIVE: Patient seen and examined OBJECTIVE: Vital Signs Period Temp Pulse Resp BP Sys/Holley Pulse Ox Last 24 Hr 97.6 F-98.5 F 93-106 18-20 97-117/63-69 95-95 GENERAL: The patient is awake, alert, and fully oriented, in no acute distress. HEAD: Normal with no signs of trauma. EYES: PERRL, extraocular movements intact, sclera anicteric, conjunctiva clear. No ptosis. ENT: Ears normal, nares patent, oropharynx clear without exudates, moist mucous membranes. NECK: Trachea midline, full range of motion, supple. LUNGS: Breath sounds equal, clear to auscultation bilaterally, no wheezes, no crackles, no accessory muscle use. HEART: Regular rate and rhythm, S1, S2 without murmur, rub or gallop. ABDOMEN: Soft, nontender, nondistended, normoactive bowel sounds, no guarding, no rebound, no hepatosplenomegaly, no masses. EXTREMITIES: 2+ pulses, warm, well-perfused, no edema. NEUROLOGICAL: Cranial nerves II through XII grossly intact. Normal speech, gait not observed. PSYCH: Normal mood, normal affect. SKIN: Warm, dry, normal turgor, no rashes or lesions noted Active Medications Generic Name Dose Route Start Last Admin Trade Name Freq PRN Reason Stop Dose Admin Albuterol Sulfate 1 amp 02/06/19 21:27 02/09/19 04:39 Ventolin 0.083% Nebulizer Soln - NEB 1 amp Q4H PRN Administration SHORT OF BREATH/WHEEZING Albuterol/Ipratropium 1 amp 02/07/19 08:00 02/10/19 20:40 Duoneb - NEB 1 amp RTID [facility] Administration Baclofen 20 mg 02/06/19 22:00 02/10/19 22:49 Lioresal - GT 20 mg BID [facility] Administration Budesonide/Formoterol Fumarate 2 puff 02/06/19 22:00 02/10/19 22:49 Symbicort 80/4.5mcg - IH 2 puff BID [facility] Administration Calcium Carbonate/Cholecalciferol 1 tab 02/06/19 22:00 02/10/19 22:49 Os-Del 500+D - GT 1 tab BID [facility] Administration Enoxaparin Sodium 40 mg 02/07/19 10:00 02/10/19 09:43 Lovenox - SQ 40 mg DAILY [facility] Administration Hydrocortisone 1 applic 02/06/19 22:00 02/10/19 22:51 Hytone 1% Cream - TP 1 applic BID [facility] Administration Magnesium Hydroxide 30 ml 02/06/19 22:00 02/10/19 22:49 Milk Of Magnesia - GT 30 ml HS [facility] Administration Methylprednisolone Sodium Succinate 40 mg 02/10/19 10:30 02/10/19 22:50 Solu-Medrol - IVPUSH 40 mg BID [facility] Administration Montelukast Sodium 10 mg 02/06/19 22:00 02/10/19 22:49 Singulair - GT 10 mg HS [facility] Administration Multi-Ingredient Ointment 1 applic 02/05/19 22:00 02/10/19 22:52 Zinc Oxide TP 1 applic BID [facility] Administration Phenobarbital 60 mg 02/05/19 22:00 02/10/19 22:49 Phenobarbital - GT 60 mg HS [facility] Administration Phenobarbital 32.4 mg 02/06/19 21:27 Phenobarbital - GT ASDIR [facility] Active Medications Albuterol Sulfate (Ventolin 0.083% Nebulizer Soln -) 1 amp NEB Q4H PRN PRN Reason: SHORT OF BREATH/WHEEZING Last Admin: 02/09/19 04:39 Dose: 1 amp Albuterol/Ipratropium (Duoneb -) 1 amp NEB RTID [facility] Last Admin: 02/10/19 20:40 Dose: 1 amp Baclofen (Lioresal -) 20 mg GT BID [facility] Last Admin: 02/10/19 22:49 Dose: 20 mg Budesonide/Formoterol Fumarate (Symbicort 80/4.5mcg -) 2 puff IH BID [facility] Last Admin: 02/10/19 22:49 Dose: 2 puff Calcium Carbonate/Cholecalciferol (Os-Del 500+D -) 1 tab GT BID [facility] Last Admin: 02/10/19 22:49 Dose: 1 tab Enoxaparin Sodium (Lovenox -) 40 mg SQ DAILY [facility] Last Admin: 02/10/19 09:43 Dose: 40 mg Hydrocortisone (Hytone 1% Cream -) 1 applic TP BID [facility] Last Admin: 02/10/19 22:51 Dose: 1 applic Magnesium Hydroxide (Milk Of Magnesia -) 30 ml GT HS [facility] Last Admin: 02/10/19 22:49 Dose: 30 ml Methylprednisolone Sodium Succinate (Solu-Medrol -) 40 mg IVPUSH BID [facility] Last Admin: 02/10/19 22:50 Dose: 40 mg Montelukast Sodium (Singulair -) 10 mg GT [facility] Last Admin: 02/10/19 22:49 Dose: 10 mg Multi-Ingredient Ointment (Zinc Oxide) 1 applic TP BID [facility] Last Admin: 02/10/19 22:52 Dose: 1 applic Phenobarbital (Phenobarbital -) 60 mg GT [facility] Last Admin: 02/10/19 22:49 Dose: 60 mg Phenobarbital (Phenobarbital -) 32.4 mg GT ASDIR [facility] ASSESSMENT/PLAN: ATTENDING PHYSICIAN STATEMENT I saw and evaluated the patient. I reviewed the resident's note and discussed the case with the resident. I agree with the resident's findings and plan as documented. SUBJECTIVE: OBJECTIVE: ASSESSMENT AND PLAN:
[2019-02-11] MEDS: ALBUTEROL SO4 2.5/IPRATROPIUM 0.5 INH SOL 3 ML VIAL.NEB. NEB SCH ×2 (07:31→14:02)
[2019-02-11] MEDS: BACLOFEN 10 MG TABLET (FP) GT SCH (09:44)
[2019-02-11] MEDS: ENOXAPARIN NA (PORCINE) 40 MG/0.4 ML DISP.SYRIN SQ SCH (09:44)
[2019-02-11] MEDS: HYDROCORTISONE 1% TOPICAL CREAM 30 GM TUBE TP SCH (09:44)
[2019-02-11] MEDS: CALCIUM 500MG/VIT-D 200 UNITS COMBO TABLET (FP) GT SCH (09:44)
[2019-02-11] MEDS: methylPREDNISolone NA SUCC 40 MG/1 ML VIAL IVPUSH SCH (09:45)
[2019-02-11] MEDS: ZINC OXIDE 20% TOPICAL OINTMENT 30 GM TUBE TP SCH (09:45)
[2019-02-11] MEDS: BUDESONIDE/FORMETEROL FUMARATE 80/4.5 mcg INHALER IH SCH (09:45)
--- NOTE | 2019-02-11 11:24 | PN ---
Teaching Attending Note Name of Resident: Chau Avila ATTENDING PHYSICIAN STATEMENT I saw and evaluated the patient. I reviewed the resident's note and discussed the case with the resident. I agree with the resident's findings and plan as documented with exceptions below. SUBJECTIVE: Patient seen and examined. comfortable, non verbal, unable to assess for ROS. OBJECTIVE: Vital Signs Period Temp Pulse Resp BP Sys/Holley Pulse Ox Last 24 Hr 97.8 F-98.5 F 93-106 18-20 97-113/63-68 95 Intake & Output 02/08/19 02/09/19 02/10/19 02/11/19 23:59 23:59 23:59 23:59 Intake Total 700 0 840 Output Total 1150 Balance -450 0 840 General: sitting in bed, no acute distress Chest: decreased effort, no wheezing today, improved air entry Neck: keloid Abdomen:Soft, NT Extremities: contractures Home Medications Medication Instructions Recorded Acetaminophen Oral Solution 650 mg GT Q6H PRN 08/08/18 [Tylenol 160mg/5mL Oral Solution -] Baclofen 20 mg GT BID 08/08/18 Budesonide/Formeterol Fumarate 2 inh PO BID 08/08/18 [SYMBICORT 80/4.5mcg -] Calcium Carbonate/Vitamin D3 1 each GT BID 08/08/18 [Oyster Shell 500-Vit D3 200 Pk] Clotrimazole 45 appful TD BID 08/08/18 Hydrocortisone 1% Cream [Hytone 1% 1 applic TP BID 08/08/18 Cream -] Ipratropium/Albuterol Sulfate 3 ml IH QID 08/08/18 [Iprat-Albut 0.5-3(2.5) mg/3 ml] Magnesium Hydrox 2400MG/30Ml [Milk 30 ml GT HS 08/08/18 of Magnesia -] Montelukast Na [Singulair -] 10 mg GT HS 08/08/18 Multivit-Min/FA/Lycopen/Lutein 1 each GT DAILY 08/08/18 [Vitrum 50 Plus Senior Tablet] Phenobarbital 32.4 mg GT ASDIR 08/08/18 Phenobarbital 64.8 mg GT HS 08/08/18 Albuterol 0.083% Nebulizer Kathleen 1 amp NEB Q4H PRN #7 vial 12/25/18 [Ventolin 0.083% Nebulizer Soln -] Lactose-Reduced Food/Fiber [Jevity 1,000 ml GT ASDIR 02/04/19 1.5 Del Liquid] predniSONE [Deltasone -] See Taper PO DAILY #7 tablet 02/11/19 ASSESSMENT AND PLAN: 38 year old woman with a history of asthma, seizure disorder, scoliosis, microcephaly, developmental delay, quadriplegia, GERD, keloids who presented to the ED from [facility] with wheezing. - Acute hypoxic respiratory failure secondary to asthma exacerbation - Urinary retention - Microcephaly with developmental delay and quadriplegia - Seizure disorder Plan: Clinically improved Oxygenating well on room air. Short prednisone taper. d/c back to [place] today Discussed with nursing.
--- NOTE | 2019-02-11 12:42 | PN ---
Progress Note (short form) - Note Progress Note: PULMONARY Alert, nonverbal. No fevers recorded. Vital Signs Period Temp Pulse Resp BP Sys/Holley Pulse Ox Last 24 Hr 97.8 F-98.5 F 93-108 18-20 97-129/63-93 95-95 Gen: NAD at rest Heart: RRR Lung: decreased breath sounds at the bases Abd: soft, nontender Ext: no edema, contracted CBC, BMP 02/09/19 06:28 02/09/19 06:28 Active Medications Albuterol Sulfate (Ventolin 0.083% Nebulizer Soln -) 1 amp NEB Q4H PRN PRN Reason: SHORT OF BREATH/WHEEZING Last Admin: 02/09/19 04:39 Dose: 1 amp Albuterol/Ipratropium (Duoneb -) 1 amp NEB RTID [facility] Last Admin: 02/11/19 07:31 Dose: 1 amp Baclofen (Lioresal -) 20 mg GT BID [facility] Last Admin: 02/11/19 09:44 Dose: 20 mg Budesonide/Formoterol Fumarate (Symbicort 80/4.5mcg -) 2 puff IH BID [facility] Last Admin: 02/11/19 09:45 Dose: 2 puff Calcium Carbonate/Cholecalciferol (Os-Del 500+D -) 1 tab GT BID [facility] Last Admin: 02/11/19 09:44 Dose: 1 tab Enoxaparin Sodium (Lovenox -) 40 mg SQ DAILY [facility] Last Admin: 02/11/19 09:44 Dose: 40 mg Hydrocortisone (Hytone 1% Cream -) 1 applic TP BID [facility] Last Admin: 02/11/19 09:44 Dose: 1 applic Magnesium Hydroxide (Milk Of Magnesia -) 30 ml GT HS [facility] Last Admin: 02/10/19 22:49 Dose: 30 ml Montelukast Sodium (Singulair -) 10 mg GT HS [facility] Last Admin: 02/10/19 22:49 Dose: 10 mg Multi-Ingredient Ointment (Zinc Oxide) 1 applic TP BID [facility] Last Admin: 02/11/19 09:45 Dose: 1 applic Phenobarbital (Phenobarbital -) 60 mg GT HS [facility] Last Admin: 02/10/19 22:49 Dose: 60 mg Phenobarbital (Phenobarbital -) 32.4 mg GT ASDIR [facility] Prednisone (Deltasone -) 40 mg PO DAILY [facility] A/P Acute Hypoxic Respiratory Failure improved r/o Aspiration Pneumonitis vs Acute Bronchospasm Cerebral Palsy Mental Retardation Functional Quadriplegia Seizure Disorder - continue inhaled bronchodilators - can monitor off steroids, antibiotics - O2 to keep SpO2 >90% - antiepileptics - enteral feeds - aspiration precautions - DVT prophylaxis
[2019-02-11 13:40] VITALS: BP 121/79; PULSE 105; TEMP 98
--- NOTE | 2019-02-11 13:44 | DS ---
Physical Exam: SUBJECTIVE: Patient seen and examined at bedside. Comfortable this morning. No wheezing OBJECTIVE: Vital Signs Period Temp Pulse Resp BP Sys/Holley Pulse Ox Last 24 Hr 97.8 F-98.5 F 93-108 18-20 97-129/63-93 95-95 PHYSICAL EXAM GEN: contracted with numerous keloids HEENT: looks around room spontaneously Neck: prominent keloids Cardio: rrr, normal s1s2, no mrg Lungs: cta. No wheezing Abd: soft, nondistended Extremities: contracted LABS HOSPITAL COURSE: Date of Admission:02/04/19 Date of Discharge: 02/11/19 This is a 38 year old woman with a history of asthma, seizure disorder, scoliosis, microcephaly, developmental delay, quadriplegia, GERD, keloids who presented to the ED from [facility] with wheezing. Pt was found to have acute hypoxic respirator failure, which responded to Symbicort, Singulair, DuoNeb, albuterol, as well as oxygen. Pt developed urinary retention, which she has had previously. On this occasion, a sales was placed by urology. Sales was ultimately removed and pt was able to void independently. Her chronic conditions were treated with home meds. Pt is stable for discharge back to [facility]. Minutes to complete discharge: 30 Discharge Summary Reason For Visit: EXACERBATION OF ASTHMA; ARF; SEPSIS Current Active Problems Acute respiratory failure (Acute) Asthma exacerbation (Acute) Urinary retention with incomplete bladder emptying (Acute) Condition: Stable - Instructions Diet, Activity, Other Instructions: You were in the hospital because of your breathing. You should follow up with your primary doctor in 1 week. You will need to follow up with your urologist, Dr. Haji as well as the pulmonary doctor, Dr. Campos. You will need to take Prednisone by mouth as follows: 40 mg for 2 days then 30 mg for 2 days then 20 mg for 2 days then 10 mg for 2 days, then off Continue taking your other medications as before. If your symptoms get worse, return to the ED. Referrals: Stiven Haji MD [Staff Physician] - Red Campos MD, MD [Staff Physician] - Disposition: CARE HOME FACILITY - Home Medications Comprehensive Discharge Medication List: Ambulatory Orders Acetaminophen Oral Solution [Tylenol 160mg/5mL Oral Solution -] 650 mg GT Q6H PRN 08/08/18 Baclofen 20 mg GT BID 08/08/18 Budesonide/Formeterol Fumarate [SYMBICORT 80/4.5mcg -] 2 inh PO BID 08/08/18 Calcium Carbonate/Vitamin D3 [Oyster Shell 500-Vit D3 200 Pk] 1 each GT BID Clotrimazole 45 appful TD BID 08/08/18 Hydrocortisone 1% Cream [Hytone 1% Cream -] 1 applic TP BID 08/08/18 Ipratropium/Albuterol Sulfate [Iprat-Albut 0.5-3(2.5) mg/3 ml] 3 ml IH QID 08/08 Magnesium Hydrox 2400MG/30Ml [Milk of Magnesia -] 30 ml GT HS 08/08/18 Montelukast Na [Singulair -] 10 mg GT HS 08/08/18 Multivit-Min/FA/Lycopen/Lutein [Vitrum 50 Plus Senior Tablet] 1 each GT DAILY Phenobarbital 32.4 mg GT ASDIR 08/08/18 Phenobarbital 64.8 mg GT HS 08/08/18 Albuterol 0.083% Nebulizer Kathleen [Ventolin 0.083% Nebulizer Soln -] 1 amp NEB Q4H PRN #7 vial 12/25/18 Lactose-Reduced Food/Fiber [Jevity 1.5 Del Liquid] 1,000 ml GT ASDIR 02/04/19 predniSONE [Deltasone -] See Taper PO DAILY #7 tablet 02/11/19 This patient is new to me today: No Emergency Visit: No Critical Care patient: No - Discharge Referral Referred to [facility] Med P.C.: No ATTENDING PHYSICIAN STATEMENT I saw and evaluated the patient. I reviewed the resident's note and discussed the case with the resident. I agree with the resident's findings and plan as documented. SUBJECTIVE: OBJECTIVE: ASSESSMENT AND PLAN:
[2019-02-12] MEDS ORDERED: predniSONE 20 MG TABLET (UD) PO SCH (10:00)
== END 2019-02-11 17:17 | DRG 133 ==
LOC: JER 12:23 → JERBED 14:32 → JICU 02-05 09:26 → J7W 02-06 21:14
PROVIDERS: ADMIT Internal Medicine; ATTEND Hospitalist
PROC: 3E0F7GC Introduction of Other Therapeutic Substance into Respiratory Tract, Via Natural or Artificial Opening (ICD-10-PCS; principal; 2019-02-04)
PROC: 5A09357 Assistance with Respiratory Ventilation, Less than 24 Consecutive Hours, Continuous Positive Airway Pressure (ICD-10-PCS; 2019-02-04)
PROC: 0T9B70Z Drainage of Bladder with Drainage Device, Via Natural or Artificial Opening (ICD-10-PCS; 2019-02-04)
DX: J96.01 Acute respiratory failure with hypoxia (principal); F72 Severe intellectual disabilities; E87.2 Acidosis; M41.9 Scoliosis, unspecified; J45.41 Moderate persistent asthma with (acute) exacerbation; Z93.1 Gastrostomy status; Q02 Microcephaly; K62.3 Rectal prolapse; G80.8 Other cerebral palsy; R62.50 Unspecified lack of expected normal physiological development in childhood; K20.9 Esophagitis, unspecified; L91.0 Hypertrophic scar; G40.909 Epilepsy, unspecified, not intractable, without status epilepticus; I25.10 Atherosclerotic heart disease of native coronary artery without angina pectoris; R00.0 Tachycardia, unspecified; R33.8 Other retention of urine
CPT/HCPCS: 36415; 36600; 71045-TC-FY; 80053; 81003; 82375; 82803; 83050; 83605; 83735; 84100; 84484; 85025; 85027; 85610; 85730; 87040; 87086; 90732; 93005; 93010; 94640; 94660; 94761; 99285-25; G0009; J0131; J0475; J7030

== ENCOUNTER 2019-03-06 05:41 | Emergency (ER) | payer OTHER ==
[2019-03-06 05:48] VITALS: BMI 20.2
--- NOTE | 2019-03-06 05:49 | PDOC ---
Attending Attestation - Resident Resident Name: Amarilys Arguello - ED Attending Attestation I have performed the following: I have examined & evaluated the patient, The case was reviewed & discussed with the resident, I agree w/resident's findings & plan - HPI HPI: 03/06/19 07:03 Pt comes with increased work of breathing at [facility]. Pt has wheeze and stridor. - Physicial Exam PE: 03/06/19 07:04 Afebrile by rectal temp. Agree with resident exam - Medical Decision Making 03/06/19 07:04 Pt will get solumedrol, nebs, EKG, CXR, labs. Day team will follow patient and dispo her once results are back.
--- NOTE | 2019-03-06 05:54 | PDOC ---
History of Present Illness - General Chief Complaint: Shortness of Breath Stated Complaint: DIFFICULTY BREATHING Time Seen by Provider: 03/06/19 05:48 Past History - Past Medical History Allergies/Adverse Reactions: Allergies Allergy/AdvReac Type Severity Reaction Status Date / Time No Known Allergies Allergy Verified 03/06/19 05:44 Home Medications: Ambulatory Orders Acetaminophen Oral Solution [Tylenol 160mg/5mL Oral Solution -] 650 mg GT Q6H PRN 08/08/18 Baclofen 20 mg GT BID 08/08/18 Budesonide/Formeterol Fumarate [SYMBICORT 80/4.5mcg -] 2 inh PO BID 08/08/18 Calcium Carbonate/Vitamin D3 [Oyster Shell 500-Vit D3 200 Pk] 1 each GT BID Clotrimazole 45 appful TD BID 08/08/18 Hydrocortisone 1% Cream [Hytone 1% Cream -] 1 applic TP BID 08/08/18 Ipratropium/Albuterol Sulfate [Iprat-Albut 0.5-3(2.5) mg/3 ml] 3 ml IH QID 08/08 Magnesium Hydrox 2400MG/30Ml [Milk of Magnesia -] 30 ml GT HS 08/08/18 Montelukast Na [Singulair -] 10 mg GT HS 08/08/18 Multivit-Min/FA/Lycopen/Lutein [Vitrum 50 Plus Senior Tablet] 1 each GT DAILY Phenobarbital 32.4 mg GT ASDIR 08/08/18 Phenobarbital 64.8 mg GT HS 08/08/18 Albuterol 0.083% Nebulizer Kathleen [Ventolin 0.083% Nebulizer Soln -] 1 amp NEB Q4H PRN #7 vial 12/25/18 Lactose-Reduced Food/Fiber [Jevity 1.5 Del Liquid] 1,000 ml GT ASDIR 02/04/19 predniSONE [Deltasone -] See Taper PO DAILY #7 tablet 02/11/19 Albuterol 0.083% Nebulizer Kathleen [Ventolin 0.083% Nebulizer Soln -] 1 neb NEB Q4H PRN #30 vial 03/06/19 predniSONE [Deltasone -] 40 mg PO DAILY #8 tablet 03/06/19 Asthma: Yes Cardiac Disorders: Yes COPD: No GI Disorders: Yes (esophagitis) Seizures: Yes (epilepsy) - Surgical History Abdominal Surgery: No Appendectomy: No Cardiac Surgery: No Cholecystectomy: Yes Lung Surgery: No Neurologic Surgery: No Orthopedic Surgery: No - Immunization History Immunization Up to Date: Yes - Suicide/Smoking/Psychosocial Hx Smoking History: Never smoked Have you smoked in the past 12 months: No Information on smoking cessation initiated: No Hx Alcohol Use: No Drug/Substance Use Hx: No Substance Use Type: None Hx Substance Use Treatment: No *Physical Exam - Vital Signs Last Vital Signs Temp Pulse Resp BP Pulse Ox 114 H 28 H 124/86 100 03/06/19 05:46 03/06/19 05:46 03/06/19 05:46 03/06/19 05:46 ED Treatment Course - LABORATORY CBC & Chemistry Diagram: 03/06/19 06:43 03/06/19 06:43 Medical Decision Making - Medical Decision Making HPI: 38yo F with PMH of asthma, seizure disorder, scoliosis, microcephaly, developmental delay, quadriplegia, GERD, keloids sent from [facility] for evaluation of shortness of breath. At 2:30am it was noted that patient was diaphoretic and stridorous. She was given tylenol, duonebs, and nebulized saline. EMS arrived and noted her to be stridorous and she was given more duonebs. Patient was satting 94% on room air. Patient was recently admitted to this hospital for acute hypoxic respiratory failure and was discharged on 02/11/19. History is limited as patient is nonverbal at baseline. ROS: unable to complete (patient nonverbal) PE: General: Awake, alert Head: Microcephaly Eyes: EOMI, sclera anicteric ENT: Moist mucus membranes Neck: Normal ROM, supple Lungs: Diffuse wheezes and stridor appreciated, accessory muscle use Cardio: Tachycardic, regular rhythm, S1 and S2 present Abdomen: Soft, nontender to palpation, nondistended. G tube in place. Extremities: Upper extremities contracted SKIN: Warm, Dry, normal turgor Neurologic: Nonverbal ED Course/MDM: DDX including but not limited to asthma exacerbation, COPD, respiratory failure , PNA, foreign body, PE, ACS Albuterol Solu-medrol Labs, EKG, CXR 03/06/19 06:41 Difficult access; Ultrasound-guided IV placed by Dr. Markham at the R. brachial Patient appears more comfortable; less stridorous and tachypneic 03/06/19 06:58 Patient signed out to day team 03/06/19 14:28 *DC/Admit/Observation/Transfer Diagnosis at time of Disposition: Asthma exacerbation - Discharge Dispostion Disposition: ASSISTED FACILITY Condition at time of disposition: Improved - Prescriptions Prescriptions: Albuterol 0.083% Nebulizer Kathleen [Ventolin 0.083% Nebulizer Soln -] 1 neb NEB Q4H PRN #30 vial PRN Reason: Asthma predniSONE [Deltasone -] 40 mg PO DAILY #8 tablet - Referrals Referrals: Dain Garcia MD [Primary Care Provider] - - Patient Instructions Printed Discharge Instructions: DI for Asthma -- Adult Additional Instructions: I have sent a prescription for Prednisone to be given via G-Tube daily. I have sent a prescription for albuterol nebulizer solution, to be given as needed every 4 hours for wheezing/shortness of breath. Follow up with her primary care doctor within 3 days. Her care is not complete until she follows up. Return to the Emergency Department for shortness of breath not relieved by albuterol treatment, fever>103F, fever>5 days, vomiting, chest pain, altered mental status or any other new, worsening or concerning symptoms. - Post Discharge Activity
[2019-03-06] MEDS ORDERED: methylPREDNISolone NA SUCC 125 MG/2 ML VIAL IVPUSH ONE (05:56)
[2019-03-06] MEDS ORDERED: ALBUTEROL SO4 0.083% IH SOL 2.5 MG/3 ML VIAL.NEB. NEB ONE ×2 (05:56→07:09)
[2019-03-06] MEDS ORDERED: methylPREDNISolone NA SUCC 125 MG/2 ML VIAL ONE (07:10)
[2019-03-06] MEDS ORDERED: MAGNESIUM SULF 50% (8.12 MEQ/2 ML-1 GM VIAL) IVPB ONE (07:35)
--- NOTE | 2019-03-06 07:35 | PDOC ---
ED Treatment Course - LABORATORY CBC & Chemistry Diagram: 03/06/19 06:43 03/06/19 06:43 - RADIOLOGY Chest X-Ray Result: Other (CXR report: Name: [facility] DEPARTMENT OF RADIOLOGY Phys: Amarilys Arguello RESIDENT : 1980 Age: 38 Sex: F [facility] Acct: [id number] Loc: [facility] Exam Date: Status: DAHIANA [place] [address] Unit Number: [id number] EXAM#: TYPE/EXAM: RESULT: RAD/CHEST X-RAY PORTABLE* Portable chest: Respiratory distress Single AP view of the chest reveals scoliosis with clear lungs, elevated left hemidiaphragm, spinal support hardware but no sign of an acute chest process. Correlation recommended. Reported By: Chuck Rodarte MD 03/06/19 0803) - Medications Given in the ED: ED Medications Discontinued Medications Generic Name Dose Route Start Last Admin Trade Name Frekarla PRN Reason Stop Dose Admin Albuterol Sulfate 3 amp 03/06/19 05:56 03/06/19 07:05 Ventolin 0.083% Nebulizer Soln - NEB 03/06/19 05:57 3 amp ONCE ONE Administration Methylprednisolone Sodium Succinate 125 mg 03/06/19 05:56 03/06/19 07:16 Solu-Medrol - IVPUSH 03/06/19 05:57 125 mg ONCE ONE Administration Medical Decision Making - Medical Decision Making Pt signed out to me by Dr. Arguello, see prior note. 38 year old female with PMH MR, quadraplegia, asthma, seizure disorder, GERD sent to ED from [place] for acute SOB at around 0230 today. Pt arrived to ED audbly wheezing, with stridor. 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 EKG performed at 0705: rate 82, regular rhythm, normal axis, normal intervals, no acute ST changes. Initial Vital Signs Pulse Resp BP Pulse Ox 114 H 28 H 124/86 100 03/06/19 05:46 03/06/19 05:46 03/06/19 05:46 03/06/19 05:46 Tachycardic. Tachypneic. No hypotension. No hypoxia on room air. Medications below were given: ED Medications Discontinued Medications Generic Name Dose Route Start Last Admin Trade Name Lakesha PRN Reason Stop Dose Admin Albuterol Sulfate 3 amp 03/06/19 05:56 03/06/19 07:05 Ventolin 0.083% Nebulizer Soln - NEB 03/06/19 05:57 3 amp ONCE ONE Administration Methylprednisolone Sodium Succinate 125 mg 03/06/19 05:56 03/06/19 07:16 Solu-Medrol - IVPUSH 03/06/19 05:57 125 mg ONCE ONE Administration Morning team reported improvement in work of breathing with medication administration. Pending labs, CXR. 03/06/19 08:09 CMP Sodium 138 mmol/L (136-145) 03/06/19 06:43 Potassium 4.2 mmol/L (3.5-5.1) 03/06/19 06:43 Chloride 107 mmol/L (98-107) 03/06/19 06:43 Carbon Dioxide 25 mmol/L (21-32) 03/06/19 06:43 Anion Gap 7 MMOL/L (8-16) L 03/06/19 06:43 BUN 18.7 mg/dL (7-18) H 03/06/19 06:43 Creatinine 0.4 mg/dL (0.55-1.3) L 03/06/19 06:43 Est GFR (CKD-EPI)AfAm 153.14 03/06/19 06:43 Est GFR (CKD-EPI)NonAf 132.13 03/06/19 06:43 Random Glucose 65 mg/dL (74-106) L 03/06/19 06:43 Calcium 9.5 mg/dL (8.5-10.1) 03/06/19 06:43 Magnesium 2.4 mg/dL (1.8-2.4) 03/06/19 06:43 Total Bilirubin 0.2 mg/dL (0.2-1) 03/06/19 06:43 AST 23 U/L (15-37) 03/06/19 06:43 ALT 34 U/L (13-61) 03/06/19 06:43 Alkaline Phosphatase 88 U/L (45-117) 03/06/19 06:43 Creatine Kinase 133 U/L (26-192) 03/06/19 06:43 Troponin I < 0.02 ng/ml (0.00-0.05) 03/06/19 06:43 Total Protein 7.4 g/dl (6.4-8.2) 03/06/19 06:43 Albumin 3.5 g/dl (3.4-5.0) 03/06/19 06:43 No electrolyte abnormalities. No KESHAWN. No transamintiis. Troponin wnl. Hypoglycemia - 1 amp D50 ordered. CXR report: Name: [facility] DEPARTMENT OF RADIOLOGY Phys: Amarilys Arguello RESIDENT : 1980 Age: 38 Sex: F [facility] Acct: [id number] Loc: [address] Exam Date: 03/06/19 Status: DAHIANA [place] [address] Unit Number: [id number] EXAM#: TYPE/EXAM: RESULT: [id number] RAD/CHEST X-RAY PORTABLE* Portable chest: Respiratory distress Single AP view of the chest reveals scoliosis with clear lungs, elevated left hemidiaphragm, spinal support hardware but no sign of an acute chest process. Correlation recommended. Reported By: Chuck Rodarte MD [id number] 03/06/19 08:21 CBC WBC 8.5 K/mm3 (4.0-10.0) 03/06/19 06:43 RBC 4.87 M/mm3 (3.60-5.2) 03/06/19 06:43 Hgb 13.6 GM/dL (10.7-15.3) 03/06/19 06:43 Hct 41.0 % (32.4-45.2) 03/06/19 06:43 MCV 84.2 fl (80-96) 03/06/19 06:43 MCH 28.0 pg (25.7-33.7) 03/06/19 06:43 MCHC 33.3 g/dl (32.0-36.0) 03/06/19 06:43 RDW 14.7 % (11.6-15.6) 03/06/19 06:43 Plt Count 310 K/MM3 (134-434) 03/06/19 06:43 MPV 9.4 fl (7.5-11.1) 03/06/19 06:43 Absolute Neuts (auto) 7.0 K/mm3 (1.5-8.0) 03/06/19 06:43 Neutrophils % 82.5 % (42.8-82.8) D 03/06/19 06:43 Lymphocytes % 7.6 % (8-40) L D 03/06/19 06:43 Monocytes % 7.4 % (3.8-10.2) 03/06/19 06:43 Eosinophils % 2.0 % (0-4.5) D 03/06/19 06:43 Basophils % 0.5 % (0-2.0) 03/06/19 06:43 Nucleated RBC % 0 % (0-0) 03/06/19 06:43 No leukocytosis. No anemia. 03/06/19 08:25 Pt reassessed, bilateral wheezing, no retractions. Will give additional albuterol neb, magenesium. Plan for care discussed with NH aid at bedside, plan to DC to NH with PO steroids, albuterol nebs with prompt return to ED for worsening of symptoms. 03/06/19 08:58 Vital Signs Temperature 97.6 F 03/06/19 07:04 Pulse Rate 86 03/06/19 08:10 Respiratory Rate 28 H 03/06/19 05:46 Blood Pressure 107/68 03/06/19 08:10 O2 Sat by Pulse Oximetry (%) 100 03/06/19 08:10 *DC/Admit/Observation/Transfer Diagnosis at time of Disposition: Asthma exacerbation - Discharge Dispostion Disposition: [facility] Condition at time of disposition: Improved Decision to Admit order: No - Prescriptions Prescriptions: Albuterol 0.083% Nebulizer Kathleen [Ventolin 0.083% Nebulizer Soln -] 1 neb NEB Q4H PRN #30 vial PRN Reason: Asthma predniSONE [Deltasone -] 40 mg PO DAILY #8 tablet - Referrals Referrals: Dain Garcia MD [Primary Care Provider] - - Patient Instructions Printed Discharge Instructions: DI for Asthma -- Adult Additional Instructions: I have sent a prescription for Prednisone to be given via G-Tube daily. I have sent a prescription for albuterol nebulizer solution, to be given as needed every 4 hours for wheezing/shortness of breath. Follow up with her primary care doctor within 3 days. Her care is not complete until she follows up. Return to the Emergency Department for shortness of breath not relieved by albuterol treatment, fever>103F, fever>5 days, vomiting, chest pain, altered mental status or any other new, worsening or concerning symptoms. - Post Discharge Activity
[2019-03-06 07:37] LABS: BASO % 0.5 % (0-2.0); HEMOGLOBIN 13.6 GM/dL (10.7-15.3); LYMPH % 7.6 % (8-40); MCHC 33.3 g/dl (32.0-36.0); MEAN CELL VOLUME 84.2 fl (80-96); MEAN PLT VOLUME 9.4 fl (7.5-11.1); MONO % 7.4 % (3.8-10.2); NEUT % 82.5 % (42.8-82.8); PLATELET COUNT 310 K/MM3 (134-434); RBC 4.87 M/mm3 (3.60-5.2); RDW 14.7 % (11.6-15.6); WHITE BLOOD COUNT 8.5 K/mm3 (4.0-10.0)
[2019-03-06 07:51] LABS: INR 1.07 (0.83-1.09); PROTHROMBIN TIME (PATIENT) 12.6 SEC (9.7-13.0)
[2019-03-06 08:05] LABS: ALBUMIN 3.5 g/dl (3.4-5.0); BILIRUBIN,TOTAL 0.2 mg/dL (0.2-1); BLOOD UREA NITROGEN 18.7 mg/dL (7-18); CALCIUM 9.5 mg/dL (8.5-10.1); CREATININE 0.4 mg/dL (0.55-1.3); POTASSIUM 4.2 mmol/L (3.5-5.1); TOT PROT 7.4 g/dl (6.4-8.2)
[2019-03-06 08:08] VITALS: TEMP 97.6
[2019-03-06] MEDS ORDERED: DEXTROSE 50%-WATER - 25 GM/50 ML VIAL IVPUSH ONE (08:08)
[2019-03-06] MEDS ORDERED: MAGNESIUM SULF 50% (8.12 MEQ/2 ML-1 GM VIAL) ONE (08:13)
[2019-03-06 08:50] VITALS: BP 107/68; PULSE 86
[2019-03-06] MEDS ORDERED: DEXTROSE 50%-WATER 25 GM/50 ML DISP.SYRIN ONE (09:08)
--- NOTE | 2019-03-06 23:43 | EKG ---
Test Reason : Blood Pressure : / mmHG Vent. Rate : 082 BPM Atrial Rate : 082 BPM P-R Int : 144 ms QRS Dur : 064 ms QT Int : 356 ms P-R-T Axes : 061 067 061 degrees QTc Int : 415 ms NORMAL SINUS RHYTHM NORMAL ECG WHEN COMPARED WITH ECG OF 04-FEB-2019 13:15, VENT. RATE HAS DECREASED BY [address] NO LONGER DEPRESSED IN ANTERIOR LEADS Confirmed by GUERA GOMES, GERRI ([id number]) on 03/06/2019 11:42:27 PM Referred By: Confirmed By:GERRI LYNNE MD
== END 2019-03-06 10:41 ==
LOC: JER 05:41
PROC: 3E0337Z Introduction of Electrolytic and Water Balance Substance into Peripheral Vein, Percutaneous Approach (ICD-10-PCS; principal; 2019-03-06)
PROC: 3E033GC Introduction of Other Therapeutic Substance into Peripheral Vein, Percutaneous Approach (ICD-10-PCS; 2019-03-06)
PROC: B54MZZA Ultrasonography of Right Upper Extremity Veins, Guidance (ICD-10-PCS; 2019-03-06)
DX: J45.901 Unspecified asthma with (acute) exacerbation (principal); E16.2 Hypoglycemia, unspecified; G82.50 Quadriplegia, unspecified; F79 Unspecified intellectual disabilities; K21.9 Gastro-esophageal reflux disease without esophagitis; G40.909 Epilepsy, unspecified, not intractable, without status epilepticus
CPT/HCPCS: 36415; 71045-TC-FY; 76882-TC-LT-FY; 80053; 82550; 83735; 84484; 85025; 85610; 93005; 93010; 96374; 96375; 99283-25

== ENCOUNTER 2019-04-10 12:28 | Inpatient (IN) | payer OTHER ==
[2019-04-10] MEDS ORDERED: DEXAMETHASONE SOD PHOSPHATE 10 MG/1 ML VIAL ONE (12:42)
[2019-04-10] MEDS ORDERED: ALBUTEROL SO4 2.5/IPRATROPIUM 0.5 INH SOL 3 ML VIAL.NEB. NEB ONE ×3 (12:42→13:30)
--- NOTE | 2019-04-10 13:04 | PDOC ---
History of Present Illness - General Chief Complaint: Asthma Stated Complaint: ASTHMA Time Seen by Provider: 04/10/19 12:54 History Source: Care Provider Exam Limitations: Clinical Condition, Other (patient nonverbal) - History of Present Illness Initial Comments: 04/10/19 13:04 Source: Aid from [place] HPI: 38yo F with PMH asthma, seizure disorder, scoliosis, microcephaly, developmental delay, quadriplegia, GERD, keloids sent from [facility] for evaluation of shortness of breath. Patient began to have difficulty breathing around 10AM after she got out of the shower. Continued to worsen, EMS was called. Patient received 2 Duonebs en route and 10mg IM decadron with some improvement of O2 SAT and symptoms. Patient was recently admitted to this hospital for acute hypoxic respiratory failure and was discharged on 02/11/19. Patient again seen and evaluated on 03/06/19 with shortness of breath with good response to nebulizer, steroids, Mg and was discharged home with close followup. No fevers, nausea, vomiting, productive cough, or sick contacts. History is limited as patient is nonverbal at baseline. All: NKDA Meds: Per chart PMH: As above PSH: As above SHx: Resident of [facility] Past History - Travel Traveled outside of the country in the last 30 days: No Close contact w/someone who was outside of country & ill: No - Past Medical History Allergies/Adverse Reactions: Allergies Allergy/AdvReac Type Severity Reaction Status Date / Time No Known Allergies Allergy Verified 03/06/19 05:44 Home Medications: Ambulatory Orders Acetaminophen Oral Solution [Tylenol 160mg/5mL Oral Solution -] 650 mg GT Q6H PRN 08/08/18 Baclofen 20 mg GT BID 08/08/18 Calcium Carbonate/Vitamin D3 [Oyster Shell 500-Vit D3 200 Pk] 1 each GT BID Clotrimazole 1 applic TD BID 08/08/18 Hydrocortisone 1% Cream [Hytone 1% Cream -] 1 applic TP BID 08/08/18 Ipratropium/Albuterol Sulfate [Iprat-Albut 0.5-3(2.5) mg/3 ml] 3 ml IH QID 08/08 Magnesium Hydrox 2400MG/30Ml [Milk of Magnesia -] 30 ml GT HS 08/08/18 Montelukast Na [Singulair -] 10 mg GT HS 08/08/18 Phenobarbital 32.4 mg GT HS 08/08/18 Phenobarbital 64.8 mg GT HS 08/08/18 Lactose-Reduced Food/Fiber [Jevity 1.5 Del Liquid] 1,000 ml GT ASDIR 02/04/19 Albuterol 0.083% Nebulizer Kathleen [Ventolin 0.083% Nebulizer Soln -] 1 neb NEB Q4H PRN #30 vial 03/06/19 Ammonium Lactate Cream [Lac-Hydrin 12% Cream -] 1 applic TD BID 04/10/19 Bacitracin - [Bacitracin Topical Ointment -] 1 applic TP BID 04/10/19 Budesonide/Formeterol Fumarate [SYMBICORT 80/4.5mcg -] 2 puff IH BID 04/10/19 Mupirocin Ointment [Bactroban 2% Ointment -] 1 applic TD BID 04/10/19 Mupirocin Ointment [Bactroban 2% Ointment -] 1 applic TD TID 04/10/19 Asthma: Yes Cardiac Disorders: Yes COPD: No GI Disorders: Yes (esophagitis) Seizures: Yes (epilepsy) - Surgical History Abdominal Surgery: No Appendectomy: No Cardiac Surgery: No Cholecystectomy: Yes Lung Surgery: No Neurologic Surgery: No Orthopedic Surgery: No - Immunization History Immunization Up to Date: Yes - Psycho Social/Smoking Cessation Hx Smoking History: Never smoked Have you smoked in the past 12 months: No Hx Alcohol Use: No Drug/Substance Use Hx: No Substance Use Type: None Hx Substance Use Treatment: No Review of Systems - Review of Systems Able to Perform ROS?: No (Patient nonverbal) Is the patient limited Wolof proficient: No *Physical Exam - Physical Exam Comments: 04/10/19 13:13 Vitals reviewed, notable for tachycardia to 111, patient satting well without tachypnea on duonebs - mild tachpnea (21) when duonebs finished Nonverbal, quadriplegic, awake and alert, no acute distress at time of exam Microcephaly, EOMI, sclera anicteric, MMM Diffuse wheezes and stridor with rhonchorous breath sounds appreciated throughout, accessory muscle use with retractions around the clavicle Tachycardic, regular rhythm, S1 and S2 present Soft, nontender to palpation, nondistended. G tube in place. Upper extremities contracted, WWP, no clubbing / cyanosis / edema Alert, Nonverbal, quadriplegic, unable to cooperate with exam ED Treatment Course - LABORATORY CBC & Chemistry Diagram: 04/10/19 14:00 04/10/19 14:00 Medical Decision Making - Medical Decision Making 04/10/19 13:10 38yo F with PMH asthma, seizure disorder, scoliosis, microcephaly, developmental delay, quadriplegia, GERD, keloids sent from [facility] for evaluation of shortness of breath. Exam notable for tachpnea, good saturation, accessory muscle use, diffuse stridor and wheezing with air movement throughout. DDX: asthma exacerbation, COPD, respiratory failure, PNA, foreign body, PE, ACS. -CBC, CMP, Cardiac Profile, PT/INR -EKG, CXR -2x Duonebs and Decadron 10mg IM given en route -Ordered for additional Duonebs -Solu-medrol 125 -IV Mg 2g over 10 minutes -POCUS IV placed by myself with Dr. Mitchell 04/10/19 16:15 -Now s/p Solumedrol, third duoneb, 2g Mg -Patient tried off O2, saturation at 97% with a good waveform, rate of 17 -Labs unremarkable, no leukocytosis or anemia, normal electrolytes, LFTs, Coags , troponin -CXR repeated due to poor quality film: no infiltrates, effusions, or acute bony pathology Dispo: Admit, Inpatient Sign out given to inpatient team Discharge - Discharge Information Problems reviewed: Yes Clinical Impression/Diagnosis: Asthma exacerbation Qualifiers: Asthma severity: unspecified severity Asthma persistence: intermittent Qualified Code(s): J45.21 - Mild intermittent asthma with (acute) exacerbation Condition: Guarded - Admission Yes - Follow up/Referral Referrals: Dain Garcia MD [Primary Care Provider] - - Patient Discharge Instructions - Post Discharge Activity
[2019-04-10] MEDS ORDERED: MAGNESIUM SULF 50% (8.12 MEQ/2 ML-1 GM VIAL) IVPB ONE (13:25)
[2019-04-10] MEDS ORDERED: methylPREDNISolone NA SUCC 125 MG/2 ML VIAL IVPB ONE (13:26)
--- NOTE | 2019-04-10 13:42 | PDOC ---
Attending Attestation - Resident Resident Name: Ross Anderson - ED Attending Attestation I have performed the following: I have examined & evaluated the patient, The case was reviewed & discussed with the resident, I agree w/resident's findings & plan, Exceptions are as noted - HPI HPI: 04/10/19 13:20 Frandy is a 38 yo F h/o asthma, seizure disorder, scoliosis, microcephaly, developmental delay, quadriplegia, GERD, keloids sent from [facility] for evaluation of shortness of breath. Patient was recently admitted to this hospital for acute hypoxic respiratory failure and was discharged on 02/11/19. Patient was again seen and evaluated on 03/06/19, treated with Nebs, steroids, Magnesium with good response and was discharged home with close followup. Per aid at her bedside, Ms Oconnor was at her baseline this morning She was taken for a shower and after that was noted to be wheezing Pt was given a nebulizer treatment and EMS was called Per aid, pt has not had fevers or chills Pt has not had a cough - Physicial Exam PE: 04/10/19 13:43 GENERAL: Nonverbal, quadriplegic, awake and alert, no acute distress at time of exam HEAD: Microcephaly, EOMI, sclera anicteric, MMM PULM: Diffuse wheezes and stridor appreciated, accessory muscle use CARD: Tachycardic, regular rhythm, S1 and S2 present ABD: Soft, nontender to palpation, nondistended. G tube in place. EXT: Upper extremities contracted, WWP, no clubbing / cyanosis / edema NEURO: Alert, Nonverbal, quadriplegic, unable to cooperate with exam - Medical Decision Making 04/10/19 13:43 38 yo F h/o asthma presenting with wheezing DD includes Asthma exacerbation, unlikely cardiac in origin, foreign body (possible but pt was observed in the shower), pneumonia, pneumothorax Will do: Labs CXR Continue nebs Solumedrol gentle hydration Consider Magnesium Re assess Low threshold to admit 04/10/19 15:11 Laboratory Tests 04/10/19 04/10/19 04/10/19 14:00 14:00 14:15 WBC 8.3 Hgb 14.4 Hct 43.1 Plt Count 356 INR 1.03 BUN 12.6 Creatinine 0.4 L Creatine Kinase 146 Troponin I < 0.02 will admit clinical impression: Severe asthma exacerbation, initial presentation
[2019-04-10 14:31] LABS: EOS % 1.6 % (0-4.5); HEMATOCRIT 43.1 % (32.4-45.2); HEMOGLOBIN 14.4 GM/dL (10.7-15.3); LYMPH % 6.9 % (8-40); MCHC 33.4 g/dl (32.0-36.0); MEAN CELL VOLUME 83.7 fl (80-96); MEAN PLT VOLUME 9.6 fl (7.5-11.1); MONO % 2.1 % (3.8-10.2); NEUT % 88.4 % (42.8-82.8); PLATELET COUNT 356 K/MM3 (134-434); RBC 5.15 M/mm3 (3.60-5.2); RDW 14.2 % (11.6-15.6); WHITE BLOOD COUNT 8.3 K/mm3 (4.0-10.0)
[2019-04-10] MEDS ORDERED: methylPREDNISolone NA SUCC 125 MG/2 ML VIAL ONE ×2 (14:33→18:04)
[2019-04-10] MEDS ORDERED: MAGNESIUM 1GM/D5W - 2 GM/200 ML IVPB IVPB ONE (14:34)
[2019-04-10 15:01] LABS: INR 1.03 (0.83-1.09); PROTHROMBIN TIME (PATIENT) 12.1 SEC (9.7-13.0)
[2019-04-10 15:03] LABS: ALBUMIN 3.7 g/dl (3.4-5.0); ALK PHOS 87 U/L (45-117); ANION GAP 9 MMOL/L (8-16); BILIRUBIN,TOTAL 0.2 mg/dL (0.2-1); BLOOD UREA NITROGEN 12.6 mg/dL (7-18); CALCIUM 9.1 mg/dL (8.5-10.1); CHLORIDE 105 mmol/L (98-107); CO2 23 mmol/L (21-32); CREATININE 0.4 mg/dL (0.55-1.3); GLUCOSE,RANDOM 94 mg/dL (74-106); MAGNESIUM 2.3 mg/dL (1.8-2.4); PHOSPHOROUS 3.6 mg/dL (2.5-4.9); POTASSIUM 3.9 mmol/L (3.5-5.1); SGOT/AST 28 U/L (15-37); SGPT/ALT 32 U/L (13-61); SODIUM 137 mmol/L (136-145); TOT PROT 7.6 g/dl (6.4-8.2)
[2019-04-10] MEDS ORDERED: ACETAMINOPHEN 650 MG/20.3 ML ORAL SOLUTION (CUPS) GT PRN (16:40)
[2019-04-10] MEDS ORDERED: ALBUTEROL SO4 0.083% IH SOL 2.5 MG/3 ML VIAL.NEB. NEB PRN (16:40)
[2019-04-10] MEDS ORDERED: PATIENT'S OWN MEDICATION (NON-FORMULARY) (Lactose-Reduced Food/Fiber [Jevity 1.5 Cal Liqui GT SCH (16:45)
--- NOTE | 2019-04-10 16:50 | HP ---
Admitting History and Physical - Admission Chief Complaint: Shortness of breath History of Present Illness: 38 yrs old F mentally challenged from [place] [facility] bed bound, functional quadriplegia, Seizures disorders, extensive keloid Scoliosis, moderate persistent asthma, today developed SOB and wheezing after given a bath patient was transferred to Ed received Nebs X3, MagSo4 IV and IV dexamethadsone remained symptomatic with audible wheezing so being admitted for further management, no documented fever, patient doesn't offer much information due to learning disabilities. 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, Other (microcephaly, congental quadraplegia ) Pulmonary: Yes: Asthma, Pneumonia (with chest tube insertion for right hydrothorax) Dermatology: Yes: Other (keloid-right neck with recurrent infections) - Past Surgical History Past Surgical History: Yes: Appendectomy, Cholecystectomy - Smoking History Smoking history: Never smoked Have you smoked in the past 12 months: No - Alcohol/Substance Use Hx Alcohol Use: No Home Medications - Allergies Allergies/Adverse Reactions: Allergies Allergy/AdvReac Type Severity Reaction Status Date / Time No Known Allergies Allergy Verified 03/06/19 05:44 - Home Medications Home Medications: Ambulatory Orders Acetaminophen Oral Solution [Tylenol 160mg/5mL Oral Solution -] 650 mg GT Q6H PRN 08/08/18 Baclofen 20 mg GT BID 08/08/18 Calcium Carbonate/Vitamin D3 [Oyster Shell 500-Vit D3 200 Pk] 1 each GT BID Clotrimazole 1 applic TD BID 08/08/18 Hydrocortisone 1% Cream [Hytone 1% Cream -] 1 applic TP BID 08/08/18 Ipratropium/Albuterol Sulfate [Iprat-Albut 0.5-3(2.5) mg/3 ml] 3 ml IH QID 08/08 Magnesium Hydrox 2400MG/30Ml [Milk of Magnesia -] 30 ml GT HS 08/08/18 Montelukast Na [Singulair -] 10 mg GT HS 08/08/18 Phenobarbital 32.4 mg GT HS 08/08/18 Phenobarbital 64.8 mg GT HS 08/08/18 Lactose-Reduced Food/Fiber [Jevity 1.5 Del Liquid] 1,000 ml GT ASDIR 02/04/19 Albuterol 0.083% Nebulizer Kathleen [Ventolin 0.083% Nebulizer Soln -] 1 neb NEB Q4H PRN #30 vial 03/06/19 Ammonium Lactate Cream [Lac-Hydrin 12% Cream -] 1 applic TD BID 04/10/19 Bacitracin - [Bacitracin Topical Ointment -] 1 applic TP BID 04/10/19 Budesonide/Formeterol Fumarate [SYMBICORT 80/4.5mcg -] 2 puff IH BID 04/10/19 Mupirocin Ointment [Bactroban 2% Ointment -] 1 applic TD BID 04/10/19 Mupirocin Ointment [Bactroban 2% Ointment -] 1 applic TD TID 04/10/19 Family Medical History Family History: Unable to Obtain (Due to mental status) Review of Systems Unable to obtain ROS, reason: due to mental status Physical Examination Vital Signs: Vital Signs Temperature 98.9 F 04/10/19 12:54 Pulse Rate 106 H 04/10/19 15:25 Respiratory Rate 24 H 04/10/19 15:25 Blood Pressure 119/85 04/10/19 15:25 O2 Sat by Pulse Oximetry (%) 100 04/10/19 15:25 Findings/Remarks: Young F bed bound sick looking not in acute respiratory distress HEENT: on Nebs, mm moist NECK: extensive keloid around neck with on indurated area CHEST: Minimal wheezes CVS: S1S2 R ABD: S/P PEG EXT: contracture and scoliosis [employer] DES[employer]ER: Alert oriented to self, functional qudriplegia Labs: CBC, BMP 04/10/19 14:00 04/10/19 14:00 Imaging - Results X-ray: Report Reviewed (Scoliosis no infilatrates) Problem List - Problems (1) Asthma exacerbation Assessment/Plan: IV steroids Solumedrol 60 mg TID, Duo neb q 6 hrly PRN albuterol, Pulmonary consult, no indication of abx at resent observe Code(s): J45.901 - UNSPECIFIED ASTHMA WITH (ACUTE) EXACERBATION Qualifiers: Asthma severity: unspecified severity Asthma persistence: intermittent Qualified Code(s): J45.21 - Mild intermittent asthma with (acute) exacerbation (2) Seizure disorder Assessment/Plan: Resume all home meds Code(s): G40.909 - EPILEPSY, UNSP, NOT INTRACTABLE, WITHOUT STATUS EPILEPTICUS (3) On enteral nutrition Assessment/Plan: Cont at same rate Code(s): Z78.9 - OTHER SPECIFIED HEALTH STATUS
[2019-04-10] MEDS ORDERED: methylPREDNISolone NA SUCC 40 MG/1 ML VIAL ONE (18:07)
[2019-04-10] MEDS: methylPREDNISolone NA SUCC 40 MG/1 ML VIAL IVPUSH SCH (18:23)
[2019-04-10] MEDS: ALBUTEROL SO4 2.5/IPRATROPIUM 0.5 INH SOL 3 ML VIAL.NEB. NEB SCH (20:10)
[2019-04-10] MEDS: PHENobarbital 30 MG TABLET GT SCH (21:40)
[2019-04-10] MEDS: MONTELUKAST NA 10 MG TABLET GT SCH (21:42)
[2019-04-10] MEDS: MAGNESIUM HYDROX 2400MG/30ML ORAL SUSPENSION 30 ML CUP GT SCH (21:42)
[2019-04-10] MEDS ORDERED: AMMONIUM LACTATE 12% CREAM 140 GM TUBE TP SCH (22:00)
[2019-04-10] MEDS ORDERED: MUPIROCIN 2% TOPICAL OINTMENT 22 GM TUBE TP SCH (22:00)
[2019-04-10] MEDS: MUPIROCIN 2% TOPICAL OINTMENT 22 GM TUBE TP SCH (22:43)
[2019-04-10] MEDS: BACITRACIN 15 GM TUBE TOPICAL OINTMENT TP SCH (22:43)
[2019-04-10] MEDS: CLOTRIMAZOLE 1% VAGINAL CREAM WITH APPLICATOR 45 GM TUBE VG SCH (22:44)
[2019-04-10] MEDS: AMMONIUM LACTATE 12% LOTION 225 GM BOTTLE TP SCH (22:45)
[2019-04-10] MEDS: HYDROCORTISONE 1% TOPICAL CREAM 30 GM TUBE TP SCH (22:45)
[2019-04-10] MEDS: CALCIUM 500MG/VIT-D 200 UNITS COMBO TABLET (FP) GT SCH (22:48)
[2019-04-10] MEDS: BUDESONIDE/FORMETEROL FUMARATE 80/4.5 mcg INHALER IH SCH (22:48)
[2019-04-10 23:41] VITALS: BMI 17.2
[2019-04-11] MEDS: methylPREDNISolone NA SUCC 40 MG/1 ML VIAL IVPUSH SCH ×3 (02:50→18:02)
[2019-04-11] MEDS: MUPIROCIN 2% TOPICAL OINTMENT 22 GM TUBE TP SCH ×3 (05:58→21:50)
[2019-04-11 08:02] LABS: BLOOD UREA NITROGEN 13.4 mg/dL (7-18); CALCIUM 9.2 mg/dL (8.5-10.1); CREATININE 0.4 mg/dL (0.55-1.3); MAGNESIUM 2.7 mg/dL (1.8-2.4); POTASSIUM 4.4 mmol/L (3.5-5.1)
[2019-04-11 08:12] LABS: BASO % 0.2 % (0-2.0); HEMOGLOBIN 13.8 GM/dL (10.7-15.3); LYMPH % 10.6 % (8-40); MCH 27.8 pg (25.7-33.7); MCHC 32.8 g/dl (32.0-36.0); MEAN CELL VOLUME 84.7 fl (80-96); MEAN PLT VOLUME 9.7 fl (7.5-11.1); MONO % 2.8 % (3.8-10.2); NEUT % 86.4 % (42.8-82.8); PLATELET COUNT 283 K/MM3 (134-434); RBC 4.96 M/mm3 (3.60-5.2); RDW 14.5 % (11.6-15.6); WHITE BLOOD COUNT 6.1 K/mm3 (4.0-10.0)
--- NOTE | 2019-04-11 08:13 | PN ---
Progress Note, Physician Chief Complaint: non verbal, no grimacing History of Present Illness: 38yo F mentally challenged from [facility] bed bound, functional quadriplegia, Seizures disorders, extensive keloid Scoliosis, moderate persistent asthma, presented to ED with and wheezing after given a bath. Patient was given Nebs X3, MgSO4 IV and IV dexamethadsone remained symptomatic with audible wheezing so being admitted for further management, no documented fever. Hx given by [facility] staff - Current Medication List Current Medications: Active Medications Acetaminophen (Tylenol Oral Solution -) 650 mg GT Q6H PRN PRN Reason: PAIN LEVEL 1-5 Albuterol Sulfate (Ventolin 0.083% Nebulizer Soln -) 1 amp NEB Q4H PRN PRN Reason: ASTHMA Albuterol/Ipratropium (Duoneb -) 1 amp NEB RQID [facility] Last Admin: 04/10/19 20:10 Dose: 1 amp Bacitracin (Bacitracin -) 1 applic TP BID [facility] Last Admin: 04/10/19 22:43 Dose: 1 applic Budesonide/Formoterol Fumarate (Symbicort 80/4.5mcg -) 2 puff IH BID [facility] Last Admin: 04/10/19 22:48 Dose: 2 puff Calcium Carbonate/Cholecalciferol (Os-Del 500+D -) 1 tab GT BID [facility] Last Admin: 04/10/19 22:48 Dose: 1 tab Clotrimazole (Gyne-Lotrimin -) 1 applic VG BID [facility] Last Admin: 04/10/19 22:44 Dose: 1 applic Hydrocortisone (Hytone 1% Cream -) 1 applic TP BID [facility] Last Admin: 04/10/19 22:45 Dose: 1 applic Influenza Virus Vaccine Quadrival (Flulaval Quad [id number]) 60 mcg IM .ONCE ONE Stop: 04/11/19 05:20 Lactic Acid (Lac-Hydrin 12) 1 applic TP BID [facility] Last Admin: 04/10/19 22:45 Dose: 1 applic Magnesium Hydroxide (Milk Of Magnesia -) 30 ml GT HS [facility] Last Admin: 04/10/19 21:42 Dose: 30 ml Methylprednisolone Sodium Succinate (Solu-Medrol -) 60 mg IVPUSH Q8H-IV [facility] Last Admin: 04/11/19 02:50 Dose: 60 mg Montelukast Sodium (Singulair -) 10 mg GT HS [facility] Last Admin: 04/10/19 21:42 Dose: 10 mg Mupirocin (Bactroban 2% Ointment -) 1 applic TP TID [facility] Last Admin: 04/11/19 05:58 Dose: 1 applic Non-Formulary Medication (Lactose-Reduced Food/Fiber [Jevity 1.5 Del Liquid]) 1 ,000 ml GT ASDIR [facility] Phenobarbital (Phenobarbital -) 30 mg GT DAILY [facility] Phenobarbital (Phenobarbital -) 60 mg GT HS [facility] Last Admin: 04/10/19 21:40 Dose: 60 mg - Objective Vital Signs: Vital Signs Temperature 97.4 F L 04/11/19 01:00 Pulse Rate 95 H 04/11/19 01:00 Respiratory Rate 22 H 04/11/19 01:00 Blood Pressure 109/69 04/11/19 01:00 O2 Sat by Pulse Oximetry (%) 97 04/10/19 21:00 Constitutional: Yes: No Distress, Thin Eyes: Yes: WNL, Conjunctiva Clear HENT: Yes: Other (extensive keloids around neck with indurated areas) Cardiovascular: Yes: WNL, Regular Rate and Rhythm Respiratory: Yes: WNL, Diminished (at bases) Gastrointestinal: Yes: WNL, Normal Bowel Sounds, Other (GT in place) ...Rectal Exam: Yes: Deferred Genitourinary: Yes: Incontinence Breast(s): Yes: WNL Musculoskeletal: Yes: Joint Stiffness Extremities: Yes: Other (contractures) Edema: No Peripheral Pulses WNL: Yes Peripheral Pulses: Left Radial: 2+, Right Radial: 2+, Left Doralis Pedis: 2+, Right Dorsalis Pedis: 2+, Left Femoral: 2+, Right Femoral: 2+ Integumentary: Yes: Other (keloids) Neurological: Yes: Other (non verbal) Psychiatric: Yes: Alert (tracks with eyes) Labs: CBC, BMP 04/11/19 07:05 INR, PTT INR 1.03 (0.83-1.09) 04/10/19 14:15 - ....Imaging Chest X-ray: Image Reviewed ( elevated right hemidiaphragm, no effsuions or infiltrates) Problem List - Problems (1) Functional quadriplegia Assessment/Plan: severe contracture to all extremities turn and reposition q2h skin care PT fall precautions Code(s): R53.2 - FUNCTIONAL QUADRIPLEGIA (2) PEG (percutaneous endoscopic gastrostomy) status Code(s): Z93.1 - GASTROSTOMY STATUS (3) Asthma exacerbation Assessment/Plan: appreciate pulmonary consultation c/w medrol if improved can likely change to PO prednisone 40mg tomorrow and complete 5 day course c/w inhaled bronchodilators maintain O2 to keep SpO2 >90% aspiration precautions Code(s): J45.901 - UNSPECIFIED ASTHMA WITH (ACUTE) EXACERBATION Qualifiers: Asthma severity: unspecified severity Asthma persistence: intermittent Qualified Code(s): J45.21 - Mild intermittent asthma with (acute) exacerbation (4) Acute respiratory failure Assessment/Plan: continue medrol - can likely change to PO prednisone 40mg daily and complete 5 day course - inhaled bronchodilators - O2 to keep SpO2 >90% - aspiration precautions - DVT prophylaxis Code(s): J96.00 - ACUTE RESPIRATORY FAILURE, UNSP W HYPOXIA OR HYPERCAPNIA Qualifiers: Respiratory failure complication: hypoxia Qualified Code(s): J96.01 - Acute respiratory failure with hypoxia (5) History of keloid of skin Assessment/Plan: skin care Code(s): Z87.2 - PERSONAL HISTORY OF DISEASES OF THE SKIN, SUBCU (6) On enteral nutrition Assessment/Plan: start Jevity 1.5 @ 20cc and increase every 4 hrs for goal of 45 health information internship consultation requested Code(s): Z78.9 - OTHER SPECIFIED HEALTH STATUS (7) Seizure disorder Assessment/Plan: c/w phenobarbital Code(s): G40.909 - EPILEPSY, UNSP, NOT INTRACTABLE, WITHOUT STATUS EPILEPTICUS (8) Prophylactic measure Assessment/Plan: FEN additional fluids in GT c/w Jevity monitor electrolytes DVT heparin Dispo mainatin as in patient full code discharge planning back to [facility] [place] Code(s): Z29.9 - ENCOUNTER FOR PROPHYLACTIC MEASURES, UNSPECIFIED Visit type - Emergency Visit Emergency Visit: Yes ED Registration Date: 04/10/19 Care time: The patient presented to the Emergency Department on the above date and was hospitalized for further evaluation of their emergent condition. - New Patient This patient is new to me today: Yes Date on this admission: 04/11/19 - Critical Care Critical Care patient: No - Discharge Referral Referred to [facility] Med P.C.: No
[2019-04-11] MEDS: ALBUTEROL SO4 2.5/IPRATROPIUM 0.5 INH SOL 3 ML VIAL.NEB. NEB SCH ×4 (08:17→20:25)
[2019-04-11] MEDS ORDERED: FLU VACCINE QUAD 60 MCG/0.5 ML (MDV 19-20) IM ONE (10:00)
--- NOTE | 2019-04-11 11:57 | CON.PULM ---
Consult Consult Specialty:: PULMONARY Referred by:: ERIN Harris Reason for Consultation:: shortness of breath - History of Present Illness Chief Complaint: shortness of breath History of Present Illness: 38yo female with h/o cerebral palsy, mental retardation, seizure disorder, asthma who was transferred from [place] for shortness of breath and wheezing. Pt nonverbal, unable to provide further history at this time. Per aide at bedside, pt appears improved, cough is back to her chronic baseline cough. No significant wheezing. No fevers recorded. Her CXR is unchanged. 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: Yes: Seizure, Other (microcephaly, congental quadraplegia ) Pulmonary: Yes: Asthma, Pneumonia (with chest tube insertion for right hydrothorax) ...: No Dermatology: Yes: Other (keloid-right neck with recurrent infections) - Past Surgical History Past Surgical History: Yes: Appendectomy, Cholecystectomy - Alcohol/Substance Use Hx Alcohol Use: No - Smoking History Smoking history: Never smoked Have you smoked in the past 12 months: No Home Medications - Allergies Allergies/Adverse Reactions: Allergies Allergy/AdvReac Type Severity Reaction Status Date / Time No Known Allergies Allergy Verified 03/06/19 05:44 - Home Medications Home Medications: Ambulatory Orders Acetaminophen Oral Solution [Tylenol 160mg/5mL Oral Solution -] 650 mg GT Q6H PRN 08/08/18 Baclofen 20 mg GT BID 08/08/18 Calcium Carbonate/Vitamin D3 [Oyster Shell 500-Vit D3 200 Pk] 1 each GT BID Clotrimazole 1 applic TD BID 08/08/18 Hydrocortisone 1% Cream [Hytone 1% Cream -] 1 applic TP BID 08/08/18 Ipratropium/Albuterol Sulfate [Iprat-Albut 0.5-3(2.5) mg/3 ml] 3 ml IH QID 08/08 Magnesium Hydrox 2400MG/30Ml [Milk of Magnesia -] 30 ml GT HS 08/08/18 Montelukast Na [Singulair -] 10 mg GT HS 08/08/18 Phenobarbital 32.4 mg GT HS 08/08/18 Phenobarbital 64.8 mg GT HS 08/08/18 Lactose-Reduced Food/Fiber [Jevity 1.5 Del Liquid] 1,000 ml GT ASDIR 02/04/19 Albuterol 0.083% Nebulizer Kathleen [Ventolin 0.083% Nebulizer Soln -] 1 neb NEB Q4H PRN #30 vial 03/06/19 Ammonium Lactate Cream [Lac-Hydrin 12% Cream -] 1 applic TD BID 04/10/19 Bacitracin - [Bacitracin Topical Ointment -] 1 applic TP BID 04/10/19 Budesonide/Formeterol Fumarate [SYMBICORT 80/4.5mcg -] 2 puff IH BID 04/10/19 Mupirocin Ointment [Bactroban 2% Ointment -] 1 applic TD BID 04/10/19 Mupirocin Ointment [Bactroban 2% Ointment -] 1 applic TD TID 04/10/19 Review of Systems Unable to obtain ROS, reason: pt nonverbal Physical Exam Vital Sings: Vital Signs Temperature 97.6 F 04/11/19 05:00 Pulse Rate 87 04/11/19 05:00 Respiratory Rate 22 H 04/11/19 09:00 Blood Pressure 112/85 04/11/19 05:00 O2 Sat by Pulse Oximetry (%) 97 04/11/19 09:00 Constitutional: Yes: Calm Eyes: Yes: Conjunctiva Clear, EOM Intact HENT: Yes: Atraumatic, Normocephalic Neck: Yes: Supple, Trachea Midline Cardiovascular: Yes: Regular Rate and Rhythm Respiratory: Yes: Diminished (decreased breath sounds at the bases) ...Clubbing: No Gastrointestinal: Yes: Normal Bowel Sounds, Soft. No: Tenderness Edema: No Neurological: Yes: Alert Labs: CBC, BMP 04/11/19 07:05 04/11/19 07:05 Imaging - Results Chest X-ray: Report Reviewed, Image Reviewed (no infiltrates) Problem List - Problems (1) Asthma exacerbation Code(s): J45.901 - UNSPECIFIED ASTHMA WITH (ACUTE) EXACERBATION Qualifiers: Asthma severity: unspecified severity Asthma persistence: intermittent Qualified Code(s): J45.21 - Mild intermittent asthma with (acute) exacerbation Assessment/Plan Acute Asthma Exacerbation Cerebral Palsy Mental Retardation Functional Quadriplegia Seizure Disorder - continue medrol - can likely change to PO prednisone 40mg daily and complete 5 day course - inhaled bronchodilators - O2 to keep SpO2 >90% - aspiration precautions - DVT prophylaxis Thank you for this consult Red Campos MD
[2019-04-11] MEDS: BUDESONIDE/FORMETEROL FUMARATE 80/4.5 mcg INHALER IH SCH ×2 (13:10→21:50)
[2019-04-11] MEDS: BACITRACIN 15 GM TUBE TOPICAL OINTMENT TP SCH ×2 (13:11→21:50)
[2019-04-11] MEDS: AMMONIUM LACTATE 12% LOTION 225 GM BOTTLE TP SCH ×2 (13:12→21:49)
[2019-04-11] MEDS: PHENobarbital 30 MG TABLET GT SCH ×2 (13:12→21:49)
[2019-04-11] MEDS: CALCIUM 500MG/VIT-D 200 UNITS COMBO TABLET (FP) GT SCH ×2 (13:13→22:03)
[2019-04-11] MEDS: HYDROCORTISONE 1% TOPICAL CREAM 30 GM TUBE TP SCH ×2 (13:13→21:49)
[2019-04-11] MEDS: CLOTRIMAZOLE 1% VAGINAL CREAM WITH APPLICATOR 45 GM TUBE VG SCH ×2 (13:14→21:49)
[2019-04-11] MEDS: MONTELUKAST NA 10 MG TABLET GT SCH (21:49)
[2019-04-11] MEDS: BACLOFEN 10 MG TABLET (FP) GT SCH (21:49)
[2019-04-11] MEDS: MAGNESIUM HYDROX 2400MG/30ML ORAL SUSPENSION 30 ML CUP GT SCH (21:49)
[2019-04-12] MEDS: methylPREDNISolone NA SUCC 40 MG/1 ML VIAL IVPUSH SCH ×2 (02:00→11:05)
[2019-04-12] MEDS: MUPIROCIN 2% TOPICAL OINTMENT 22 GM TUBE TP SCH ×3 (06:06→22:09)
--- NOTE | 2019-04-12 07:33 | PN ---
Progress Note, Physician History of Present Illness: 38yo F mentally challenged from [facility] bed bound, functional quadriplegia, Seizures disorders, extensive keloid Scoliosis, moderate persistent asthma, presented to ED with and wheezing after given a bath. Patient was given Nebs X3, MgSO4 IV and IV dexamethadsone remained symptomatic with audible wheezing so being admitted for further management, no documented fever. Hx given by [facility] staff - Current Medication List Current Medications: Active Medications Acetaminophen (Tylenol Oral Solution -) 650 mg GT Q6H PRN PRN Reason: PAIN LEVEL 1-5 Albuterol Sulfate (Ventolin 0.083% Nebulizer Soln -) 1 amp NEB Q4H PRN PRN Reason: ASTHMA Albuterol/Ipratropium (Duoneb -) 1 amp NEB RQID [facility] Last Admin: 04/11/19 20:25 Dose: 1 amp Bacitracin (Bacitracin -) 1 applic TP BID [facility] Last Admin: 04/11/19 21:50 Dose: 1 applic Baclofen (Lioresal -) 20 mg GT BID [facility] Last Admin: 04/11/19 21:49 Dose: 20 mg Budesonide/Formoterol Fumarate (Symbicort 80/4.5mcg -) 2 puff IH BID [facility] Last Admin: 04/11/19 21:50 Dose: 2 puff Calcium Carbonate/Cholecalciferol (Os-Del 500+D -) 1 tab GT BID [facility] Last Admin: 04/11/19 22:03 Dose: 1 tab Clotrimazole (Gyne-Lotrimin -) 1 applic VG BID [facility] Last Admin: 04/11/19 21:49 Dose: 1 applic Hydrocortisone (Hytone 1% Cream -) 1 applic TP BID [facility] Last Admin: 04/11/19 21:49 Dose: 1 applic Lactic Acid (Lac-Hydrin 12) 1 applic TP BID [facility] Last Admin: 04/11/19 21:49 Dose: 1 applic Magnesium Hydroxide (Milk Of Magnesia -) 30 ml GT HS [facility] Last Admin: 04/11/19 21:49 Dose: 30 ml Methylprednisolone Sodium Succinate (Solu-Medrol -) 60 mg IVPUSH Q8H-IV [facility] Last Admin: 04/12/19 02:00 Dose: 60 mg Montelukast Sodium (Singulair -) 10 mg GT HS [facility] Last Admin: 04/11/19 21:49 Dose: 10 mg Mupirocin (Bactroban 2% Ointment -) 1 applic TP TID [facility] Last Admin: 04/12/19 06:06 Dose: 1 applic Phenobarbital (Phenobarbital -) 30 mg GT DAILY [facility] Last Admin: 04/11/19 13:12 Dose: 30 mg Phenobarbital (Phenobarbital -) 60 mg GT HS [facility] Last Admin: 04/11/19 21:49 Dose: 60 mg - Objective Vital Signs: Vital Signs Temperature 97.5 F L 04/12/19 02:00 Pulse Rate 86 04/12/19 02:00 Respiratory Rate 20 04/12/19 02:00 Blood Pressure 107/71 04/12/19 02:00 O2 Sat by Pulse Oximetry (%) 97 04/11/19 21:00 Labs: INR, PTT INR 1.03 (0.83-1.09) 04/10/19 14:15 Problem List - Problems (1) Functional quadriplegia Code(s): R53.2 - FUNCTIONAL QUADRIPLEGIA (2) PEG (percutaneous endoscopic gastrostomy) status Code(s): Z93.1 - GASTROSTOMY STATUS (3) Asthma exacerbation Code(s): J45.901 - UNSPECIFIED ASTHMA WITH (ACUTE) EXACERBATION Qualifiers: Asthma severity: unspecified severity Asthma persistence: intermittent Qualified Code(s): J45.21 - Mild intermittent asthma with (acute) exacerbation (4) Acute respiratory failure Code(s): J96.00 - ACUTE RESPIRATORY FAILURE, UNSP W HYPOXIA OR HYPERCAPNIA Qualifiers: Respiratory failure complication: hypoxia Qualified Code(s): J96.01 - Acute respiratory failure with hypoxia (5) History of keloid of skin Code(s): Z87.2 - PERSONAL HISTORY OF DISEASES OF THE SKIN, SUBCU (6) On enteral nutrition Code(s): Z78.9 - OTHER SPECIFIED HEALTH STATUS (7) Seizure disorder Code(s): G40.909 - EPILEPSY, UNSP, NOT INTRACTABLE, WITHOUT STATUS EPILEPTICUS (8) Prophylactic measure Code(s): Z29.9 - ENCOUNTER FOR PROPHYLACTIC MEASURES, UNSPECIFIED
[2019-04-12 07:42] LABS: BASO % 0.2 % (0-2.0); HEMOGLOBIN 14.4 GM/dL (10.7-15.3); MCH 27.5 pg (25.7-33.7); MCHC 31.9 g/dl (32.0-36.0); MONO % 4.4 % (3.8-10.2); NEUT % 87.4 % (42.8-82.8); RBC 5.23 M/mm3 (3.60-5.2); RDW 14.4 % (11.6-15.6); WHITE BLOOD COUNT 10.7 K/mm3 (4.0-10.0)
[2019-04-12] MEDS: ALBUTEROL SO4 2.5/IPRATROPIUM 0.5 INH SOL 3 ML VIAL.NEB. NEB SCH ×4 (08:00→20:15)
[2019-04-12 08:11] LABS: ALBUMIN 3.2 g/dl (3.4-5.0); BILIRUBIN,TOTAL 0.2 mg/dL (0.2-1); CREATININE 0.5 mg/dL (0.55-1.3); MAGNESIUM 2.5 mg/dL (1.8-2.4); POTASSIUM 4.2 mmol/L (3.5-5.1); TOT PROT 7.1 g/dl (6.4-8.2)
[2019-04-12] MEDS ORDERED: predniSONE 5 MG/5 ML ORAL SOLN- UNIT-DOSE CUP PO SCH (10:15)
[2019-04-12] MEDS ORDERED: predniSONE 5 MG/5 ML ORAL SOLN- UNIT-DOSE CUP GT SCH (10:18)
[2019-04-12] MEDS: BACLOFEN 10 MG TABLET (FP) GT SCH ×2 (11:06→22:10)
[2019-04-12] MEDS: BACITRACIN 15 GM TUBE TOPICAL OINTMENT TP SCH ×2 (11:06→22:08)
[2019-04-12] MEDS: HYDROCORTISONE 1% TOPICAL CREAM 30 GM TUBE TP SCH ×2 (11:08→22:08)
[2019-04-12] MEDS: CLOTRIMAZOLE 1% VAGINAL CREAM WITH APPLICATOR 45 GM TUBE VG SCH ×2 (11:09→22:06)
[2019-04-12] MEDS: AMMONIUM LACTATE 12% LOTION 225 GM BOTTLE TP SCH ×2 (11:10→22:09)
[2019-04-12] MEDS: BUDESONIDE/FORMETEROL FUMARATE 80/4.5 mcg INHALER IH SCH ×2 (11:11→22:11)
[2019-04-12] MEDS: PHENobarbital 30 MG TABLET GT SCH ×2 (11:12→22:10)
[2019-04-12] MEDS: CALCIUM 500MG/VIT-D 200 UNITS COMBO TABLET (FP) GT SCH ×2 (11:13→22:13)
[2019-04-12] MEDS ORDERED: PT OWN MED DRAWER 7, Y5N ONE (11:22)
--- NOTE | 2019-04-12 11:23 | PN ---
Progress Note (short form) - Note Progress Note: Non-verbal. NAD. No acute events documented overnight. Intake & Output 04/09/19 04/10/19 04/11/19 04/12/19 23:59 23:59 23:59 23:59 Intake Total 0 450 1015 Balance 0 450 1015 Weight 85 lb 85 lb Last Vital Signs Temp Pulse Resp BP Pulse Ox 97.5 F L 85 20 109/73 99 04/12/19 06:00 04/12/19 06:00 04/12/19 06:00 04/12/19 06:00 04/12/19 09:00 Active Medications Acetaminophen (Tylenol Oral Solution -) 650 mg GT Q6H PRN PRN Reason: PAIN LEVEL 1-5 Albuterol Sulfate (Ventolin 0.083% Nebulizer Soln -) 1 amp NEB Q4H PRN PRN Reason: ASTHMA Albuterol/Ipratropium (Duoneb -) 1 amp NEB RQID [facility] Last Admin: 04/12/19 08:00 Dose: 1 amp Bacitracin (Bacitracin -) 1 applic TP BID [facility] Last Admin: 04/12/19 11:06 Dose: 1 applic Baclofen (Lioresal -) 20 mg GT BID [facility] Last Admin: 04/12/19 11:06 Dose: 20 mg Budesonide/Formoterol Fumarate (Symbicort 80/4.5mcg -) 2 puff IH BID [facility] Last Admin: 04/12/19 11:11 Dose: 2 puff Calcium Carbonate/Cholecalciferol (Os-Del 500+D -) 1 tab GT BID [facility] Last Admin: 04/12/19 11:13 Dose: 1 tab Clotrimazole (Gyne-Lotrimin -) 1 applic VG BID [facility] Last Admin: 04/12/19 11:09 Dose: 1 applic Hydrocortisone (Hytone 1% Cream -) 1 applic TP BID [facility] Last Admin: 04/12/19 11:08 Dose: 1 applic Lactic Acid (Lac-Hydrin 12) 1 applic TP BID [facility] Last Admin: 04/12/19 11:10 Dose: 1 applic Magnesium Hydroxide (Milk Of Magnesia -) 30 ml GT HS [facility] Last Admin: 04/11/19 21:49 Dose: 30 ml Montelukast Sodium (Singulair -) 10 mg GT HS [facility] Last Admin: 04/11/19 21:49 Dose: 10 mg Mupirocin (Bactroban 2% Ointment -) 1 applic TP TID [facility] Last Admin: 04/12/19 06:06 Dose: 1 applic Phenobarbital (Phenobarbital -) 30 mg GT DAILY [facility] Last Admin: 04/12/19 11:12 Dose: 30 mg Phenobarbital (Phenobarbital -) 60 mg GT [facility] Last Admin: 04/11/19 21:49 Dose: 60 mg Prednisone (Deltasone -) 10 mg GT DAILY [facility] Stop: 04/16/19 10:01 Constitutional: Yes: NAD Eyes: Yes: Conjunctiva Clear, EOM Intact HENT: Yes: Atraumatic, Normocephalic Neck: Yes: Supple, Trachea Midline Cardiovascular: Yes: Regular Rate and Rhythm Respiratory: Yes: Diminished (decreased breath sounds at the bases) ...Clubbing: No Gastrointestinal: Yes: Normal Bowel Sounds, Soft. No: Tenderness Edema: No Neurological: Yes: Alert Labs: Laboratory Results - last 24 hr 04/12/19 04/12/19 06:14 06:14 WBC 10.7 H RBC 5.23 H Hgb 14.4 Hct 45.0 MCV 86.0 MCH 27.5 MCHC 31.9 L RDW 14.4 Absolute Neuts (auto) 9.4 H Neutrophils % 87.4 H Lymphocytes % 8.0 D Monocytes % 4.4 Eosinophils % 0.0 Basophils % 0.2 Nucleated RBC % 0 Sodium 139 Potassium 4.2 Chloride 108 H Carbon Dioxide 21 Anion Gap 9 BUN 15.0 Creatinine 0.5 L Est GFR (CKD-EPI)AfAm 142.30 Est GFR (CKD-EPI)NonAf 122.78 Random Glucose 125 H Calcium 9.0 Magnesium 2.5 H Total Bilirubin 0.2 AST 14 L ALT 27 Alkaline Phosphatase 80 Total Protein 7.1 Albumin 3.2 L Problem List - Problems (1) Asthma exacerbation Code(s): J45.901 - UNSPECIFIED ASTHMA WITH (ACUTE) EXACERBATION Qualifiers: Asthma severity: unspecified severity Asthma persistence: intermittent Qualified Code(s): J45.21 - Mild intermittent asthma with (acute) exacerbation Assessment/Plan Acute Asthma Exacerbation Cerebral Palsy Mental Retardation Functional Quadriplegia Seizure Disorder - Prednisone 40mg for 5 day course - inhaled bronchodilators - O2 to keep SpO2 >90% - aspiration precautions - DVT prophylaxis - No Pulmonary contraindication for DC Dr Noriega
[2019-04-12 13:30] LABS: PLATELET ESTIMATE NO CLOTTING DETECTED
--- NOTE | 2019-04-12 15:52 | DS ---
Physical Exam: SUBJECTIVE: Patient seen and examined 38yo F mentally challenged from [facility] assisted living bed bound, functional quadriplegia, Seizures disorders, extensive keloid Scoliosis, moderate persistent asthma, presented to ED with and wheezing after given a bath. Patient was given Nebs X3, MgSO4 IV and IV dexamethadsone remained symptomatic with audible wheezing so being admitted for further management, no documented fever. OBJECTIVE: Vital Signs Period Temp Pulse Resp BP Sys/Holley Pulse Ox Last 24 Hr 97.1 F-98.6 F 74-99 20-20 99-146/53-73 97-99 PHYSICAL EXAM GENERAL: The patient is awake, alert, and fully oriented, in no acute distress. HEAD: Normal with no signs of trauma. EYES: PERRL, extraocular movements intact, sclera anicteric, conjunctiva clear. ENT: Ears normal, nares patent, oropharynx clear without exudates, moist mucous membranes. NECK: Trachea midline, full range of motion, supple. LUNGS: Breath sounds equal, clear to auscultation bilaterally, no wheezes, no crackles, no accessory muscle use. HEART: Regular rate and rhythm, S1, S2 without murmur, rub or gallop. ABDOMEN: Soft, nontender, nondistended, normoactive bowel sounds, no guarding, no rebound, no hepatosplenomegaly, no masses. EXTREMITIES: 2+ pulses, warm, well-perfused, no edema. NEUROLOGICAL: Cranial nerves II through XII grossly intact. Normal speech, gait not observed. PSYCH: Normal mood, normal affect. SKIN: Warm, dry, normal turgor, no rashes or lesions noted. LABS Laboratory Results - last 24 hr 04/12/19 04/12/19 06:14 06:14 WBC 10.7 H RBC 5.23 H Hgb 14.4 Hct 45.0 MCV 86.0 MCH 27.5 MCHC 31.9 L RDW 14.4 Plt Count Absolute Neuts (auto) 9.4 H Neutrophils % 87.4 H Lymphocytes % 8.0 D Monocytes % 4.4 Eosinophils % 0.0 Basophils % 0.2 Nucleated RBC % 0 Platelet Estimate No clotting detected Platelet Comment Slt plt clumping Sodium 139 Potassium 4.2 Chloride 108 H Carbon Dioxide 21 Anion Gap 9 BUN 15.0 Creatinine 0.5 L Est GFR (CKD-EPI)AfAm 142.30 Est GFR (CKD-EPI)NonAf 122.78 Random Glucose 125 H Calcium 9.0 Magnesium 2.5 H Total Bilirubin 0.2 AST 14 L ALT 27 Alkaline Phosphatase 80 Total Protein 7.1 Albumin 3.2 L HOSPITAL COURSE: Date of Admission:04/10/19 Date of Discharge: 04/12/19 Minutes to complete discharge: 55 Discharge Summary Problems reviewed: Yes Reason For Visit: EXACERBATION OF ASTHMA Current Active Problems Asthma exacerbation (Acute) Functional quadriplegia (Acute) PEG (percutaneous endoscopic gastrostomy) status (Acute) Prophylactic measure (Acute) Condition: Improved - Instructions Referrals: Dain Garcia MD [Primary Care Provider] - - Home Medications Comprehensive Discharge Medication List: Ambulatory Orders Acetaminophen Oral Solution [Tylenol 160mg/5mL Oral Solution -] 650 mg GT Q6H PRN 08/08/18 Baclofen 20 mg GT BID 08/08/18 Calcium Carbonate/Vitamin D3 [Oyster Shell 500-Vit D3 200 Pk] 1 each GT BID Clotrimazole 1 applic TD BID 08/08/18 Hydrocortisone 1% Cream [Hytone 1% Cream -] 1 applic TP BID 08/08/18 Ipratropium/Albuterol Sulfate [Iprat-Albut 0.5-3(2.5) mg/3 ml] 3 ml IH QID 08/08 Magnesium Hydrox 2400MG/30Ml [Milk of Magnesia -] 30 ml GT HS 08/08/18 Montelukast Na [Singulair -] 10 mg GT HS 08/08/18 Phenobarbital 32.4 mg GT HS 08/08/18 Phenobarbital 64.8 mg GT HS 08/08/18 Lactose-Reduced Food/Fiber [Jevity 1.5 Del Liquid] 1,000 ml GT ASDIR 02/04/19 Albuterol 0.083% Nebulizer Kathleen [Ventolin 0.083% Nebulizer Soln -] 1 neb NEB Q4H PRN #30 vial 03/06/19 Ammonium Lactate Cream [Lac-Hydrin 12% Cream -] 1 applic TD BID 04/10/19 Bacitracin - [Bacitracin Topical Ointment -] 1 applic TP BID 04/10/19 Budesonide/Formeterol Fumarate [SYMBICORT 80/4.5mcg -] 2 puff IH BID 04/10/19 Mupirocin Ointment [Bactroban 2% Ointment -] 1 applic TD BID 04/10/19 Mupirocin Ointment [Bactroban 2% Ointment -] 1 applic TD TID 04/10/19 predniSONE ORAL SOLUTION [Deltasone Oral Solution 5 MG/5 ML -] 10 mg GT DAILY # 1 cup 04/12/19 Problem List - Problems (1) Functional quadriplegia Code(s): R53.2 - FUNCTIONAL QUADRIPLEGIA (2) PEG (percutaneous endoscopic gastrostomy) status Code(s): Z93.1 - GASTROSTOMY STATUS (3) Asthma exacerbation Code(s): J45.901 - UNSPECIFIED ASTHMA WITH (ACUTE) EXACERBATION Qualifiers: Asthma severity: unspecified severity Asthma persistence: intermittent Qualified Code(s): J45.21 - Mild intermittent asthma with (acute) exacerbation (4) Acute respiratory failure Code(s): J96.00 - ACUTE RESPIRATORY FAILURE, UNSP W HYPOXIA OR HYPERCAPNIA Qualifiers: Respiratory failure complication: hypoxia Qualified Code(s): J96.01 - Acute respiratory failure with hypoxia (5) History of keloid of skin Code(s): Z87.2 - PERSONAL HISTORY OF DISEASES OF THE SKIN, SUBCU (6) On enteral nutrition Code(s): Z78.9 - OTHER SPECIFIED HEALTH STATUS (7) Seizure disorder Code(s): G40.909 - EPILEPSY, UNSP, NOT INTRACTABLE, WITHOUT STATUS EPILEPTICUS (8) Prophylactic measure Code(s): Z29.9 - ENCOUNTER FOR PROPHYLACTIC MEASURES, UNSPECIFIED - Discharge Referral Referred to [facility] Med P.C.: No
[2019-04-12] MEDS: MAGNESIUM HYDROX 2400MG/30ML ORAL SUSPENSION 30 ML CUP GT SCH (22:10)
[2019-04-12] MEDS: MONTELUKAST NA 10 MG TABLET GT SCH (22:10)
[2019-04-13] MEDS: MUPIROCIN 2% TOPICAL OINTMENT 22 GM TUBE TP SCH ×2 (05:42→14:20)
[2019-04-13] MEDS: ALBUTEROL SO4 2.5/IPRATROPIUM 0.5 INH SOL 3 ML VIAL.NEB. NEB SCH ×3 (08:17→15:56)
[2019-04-13 08:30] LABS: BASO % 0.4 % (0-2.0); EOS % 8.3 % (0-4.5); HEMATOCRIT 44.7 % (32.4-45.2); HEMOGLOBIN 14.3 GM/dL (10.7-15.3); LYMPH % 30.8 % (8-40); MCH 27.4 pg (25.7-33.7); MEAN CELL VOLUME 85.6 fl (80-96); MEAN PLT VOLUME 9.4 fl (7.5-11.1); MONO % 11.5 % (3.8-10.2); PLATELET COUNT 277 K/MM3 (134-434); RBC 5.22 M/mm3 (3.60-5.2); RDW 14.6 % (11.6-15.6); WHITE BLOOD COUNT 7.2 K/mm3 (4.0-10.0)
[2019-04-13 09:06] LABS: BILIRUBIN,TOTAL 0.2 mg/dL (0.2-1); BLOOD UREA NITROGEN 17.5 mg/dL (7-18); CALCIUM 8.9 mg/dL (8.5-10.1); CREATININE 0.4 mg/dL (0.55-1.3); MAGNESIUM 2.4 mg/dL (1.8-2.4); POTASSIUM 4.9 mmol/L (3.5-5.1); TOT PROT 6.6 g/dl (6.4-8.2)
[2019-04-13] MEDS: PHENobarbital 30 MG TABLET GT SCH (10:23)
[2019-04-13] MEDS: AMMONIUM LACTATE 12% LOTION 225 GM BOTTLE TP SCH (10:24)
[2019-04-13] MEDS: CALCIUM 500MG/VIT-D 200 UNITS COMBO TABLET (FP) GT SCH (10:24)
[2019-04-13] MEDS: BACLOFEN 10 MG TABLET (FP) GT SCH (10:24)
[2019-04-13] MEDS: CLOTRIMAZOLE 1% VAGINAL CREAM WITH APPLICATOR 45 GM TUBE VG SCH (10:25)
[2019-04-13] MEDS: BACITRACIN 15 GM TUBE TOPICAL OINTMENT TP SCH (10:25)
[2019-04-13] MEDS: HYDROCORTISONE 1% TOPICAL CREAM 30 GM TUBE TP SCH (10:25)
[2019-04-13] MEDS: BUDESONIDE/FORMETEROL FUMARATE 80/4.5 mcg INHALER IH SCH ×2 (10:26→11:54)
--- NOTE | 2019-04-13 11:25 | PN ---
Progress Note (short form) - Note Progress Note: Non-verbal. NAD. No acute events documented overnight. Intake & Output 04/10/19 04/11/19 04/12/19 04/13/19 23:59 23:59 23:59 23:59 Intake Total 0 450 1755 800 Balance 0 450 1755 800 Weight 85 lb 85 lb Last Vital Signs Temp Pulse Resp BP Pulse Ox 98.0 F 89 20 112/71 96 04/13/19 09:16 04/13/19 09:16 04/13/19 09:16 04/13/19 09:16 04/12/19 21:00 Active Medications Acetaminophen (Tylenol Oral Solution -) 650 mg GT Q6H PRN PRN Reason: PAIN LEVEL 1-5 Albuterol Sulfate (Ventolin 0.083% Nebulizer Soln -) 1 amp NEB Q4H PRN PRN Reason: ASTHMA Albuterol/Ipratropium (Duoneb -) 1 amp NEB RQID [facility] Last Admin: 04/13/19 08:17 Dose: 1 amp Bacitracin (Bacitracin -) 1 applic TP BID [facility] Last Admin: 04/13/19 10:25 Dose: 1 applic Baclofen (Lioresal -) 20 mg GT BID [facility] Last Admin: 04/13/19 10:24 Dose: 20 mg Budesonide/Formoterol Fumarate (Symbicort 80/4.5mcg -) 2 puff IH BID [facility] Last Admin: 04/13/19 10:26 Dose: Not Given Calcium Carbonate/Cholecalciferol (Os-Del 500+D -) 1 tab GT BID [facility] Last Admin: 04/13/19 10:24 Dose: 1 tab Clotrimazole (Gyne-Lotrimin -) 1 applic VG BID [facility] Last Admin: 04/13/19 10:25 Dose: 1 applic Hydrocortisone (Hytone 1% Cream -) 1 applic TP BID [facility] Last Admin: 04/13/19 10:25 Dose: 1 applic Lactic Acid (Lac-Hydrin 12) 1 applic TP BID [facility] Last Admin: 04/13/19 10:24 Dose: 1 applic Magnesium Hydroxide (Milk Of Magnesia -) 30 ml GT HS [facility] Last Admin: 04/12/19 22:10 Dose: 30 ml Montelukast Sodium (Singulair -) 10 mg GT HS [facility] Last Admin: 04/12/19 22:10 Dose: 10 mg Mupirocin (Bactroban 2% Ointment -) 1 applic TP TID [facility] Last Admin: 04/13/19 05:42 Dose: 1 applic Phenobarbital (Phenobarbital -) 30 mg GT DAILY [facility] Last Admin: 04/13/19 10:23 Dose: 30 mg Phenobarbital (Phenobarbital -) 60 mg [address] [facility] Last Admin: 04/12/19 22:10 Dose: 60 mg Prednisone (Deltasone -) 10 mg GT DAILY [facility] Stop: 04/16/19 10:01 Last Admin: 04/13/19 10:24 Dose: 10 mg Constitutional: Yes: NAD Eyes: Yes: Conjunctiva Clear, EOM Intact HENT: Yes: Atraumatic, Normocephalic Neck: Yes: Supple, Trachea Midline Cardiovascular: Yes: Regular Rate and Rhythm Respiratory: Yes: Diminished (decreased breath sounds at the bases) ...Clubbing: No Gastrointestinal: Yes: Normal Bowel Sounds, Soft. No: Tenderness Edema: No Neurological: Yes: Alert Labs: Laboratory Results - last 24 hr 04/12/19 04/13/19 04/13/19 06:14 08:00 08:00 WBC 7.2 RBC 5.22 H Hgb 14.3 Hct 44.7 MCV 85.6 MCH 27.4 MCHC 32.0 RDW 14.6 Plt Count 277 MPV 9.4 Absolute Neuts (auto) 3.5 Neutrophils % 49.0 D Lymphocytes % 30.8 D Monocytes % 11.5 H D Eosinophils % 8.3 H D Basophils % 0.4 Nucleated RBC % 0 Platelet Estimate No clotting detected Platelet Comment Slt plt clumping Sodium 140 Potassium 4.9 Chloride 108 H Carbon Dioxide 27 Anion Gap 5 L BUN 17.5 Creatinine 0.4 L Est GFR (CKD-EPI)AfAm 153.14 Est GFR (CKD-EPI)NonAf 132.13 Random Glucose 93 Calcium 8.9 Magnesium 2.4 Total Bilirubin 0.2 AST 20 ALT 25 Alkaline Phosphatase 79 Total Protein 6.6 Albumin 3.0 L Problem List - Problems (1) Asthma exacerbation Code(s): J45.901 - UNSPECIFIED ASTHMA WITH (ACUTE) EXACERBATION Qualifiers: Asthma severity: unspecified severity Asthma persistence: intermittent Qualified Code(s): J45.21 - Mild intermittent asthma with (acute) exacerbation Assessment/Plan Acute Asthma Exacerbation Cerebral Palsy Mental Retardation Functional Quadriplegia Seizure Disorder - Noted Prednisone 10mg OD - inhaled bronchodilators PRN - aspiration precautions - DVT prophylaxis - No Pulmonary contraindication for DC Dr Noriega
[2019-04-13 18:38] VITALS: BP 100/63; PULSE 92; TEMP 98.5
== END 2019-04-13 19:19 | disposition home or self-care (01) | DRG 141 ==
LOC: JER 12:28 → JERBED 16:23 → J5S 19:50
PROVIDERS: ADMIT Internal Medicine; ATTEND Nurse Practitioner Family
DX: J45.21 Mild intermittent asthma with (acute) exacerbation (principal); G40.909 Epilepsy, unspecified, not intractable, without status epilepticus; G80.9 Cerebral palsy, unspecified; F78 Other intellectual disabilities; M41.9 Scoliosis, unspecified; R53.2 Functional quadriplegia; K21.9 Gastro-esophageal reflux disease without esophagitis; L91.0 Hypertrophic scar; J96.01 Acute respiratory failure with hypoxia; Z78.9 Other specified health status; Z87.2 Personal history of diseases of the skin and subcutaneous tissue; Z93.1 Gastrostomy status
CPT/HCPCS: 36415; 71045-TC-FY; 80048; 80053; 82550; 83735; 84100; 84484; 84703; 85025; 85610; 94640; 97161-GP; 99283-25; J0475; Q2036

== ENCOUNTER 2019-04-23 10:04 | Emergency (ER) | payer OTHER ==
[2019-04-23] MEDS ORDERED: ALBUTEROL SO4 2.5/IPRATROPIUM 0.5 INH SOL 3 ML VIAL.NEB. NEB ONE (10:22)
[2019-04-23] MEDS ORDERED: DEXAMETHASONE SOD PHOSPHATE 10 MG/1 ML VIAL ONE (10:22)
[2019-04-23 10:35] VITALS: TEMP 99.4; BMI 25.7
--- NOTE | 2019-04-23 10:57 | PDOC ---
History of Present Illness - General Chief Complaint: Shortness of Breath Stated Complaint: WEEZING Time Seen by Provider: 04/23/19 10:40 - History of Present Illness Initial Comments: 04/23/19 10:57 Pt is a 38 y/o F with a significant past medical history of MR, congenital scoliosis (insertion of lugue gavin), melissa fundoplication, microcephalus, otitis media, volvulus small bowel quadriplegia, epilepsy, GERD, VRE, and asthma who presents to our Emergency Department due to respiratory distress. Per Nikolay Lujane at bedside, pt woke this morning and was being prepped to take a shower. Pt suddenly developed respiratory distress; pulse Ox was 90 per aide. Pt given 3 nebulizer treatments as well as 10 mg dexamethasone en route. Past History - Past Medical History Allergies/Adverse Reactions: Allergies Allergy/AdvReac Type Severity Reaction Status Date / Time No Known Allergies Allergy Verified 04/23/19 10:47 Home Medications: Ambulatory Orders Acetaminophen Oral Solution [Tylenol 160mg/5mL Oral Solution -] 650 mg GT Q6H PRN 08/08/18 Baclofen 20 mg GT BID 08/08/18 Clotrimazole 1 applic TD BID 08/08/18 Hydrocortisone 1% Cream [Hytone 1% Cream -] 1 applic TP BID 08/08/18 Ipratropium/Albuterol Sulfate [Iprat-Albut 0.5-3(2.5) mg/3 ml] 3 ml IH QID 08/08 Magnesium Hydrox 2400MG/30Ml [Milk of Magnesia -] 30 ml GT HS 08/08/18 Montelukast Na [Singulair -] 10 mg GT HS 08/08/18 Phenobarbital 32.4 mg GT HS 08/08/18 Phenobarbital 64.8 mg GT HS 08/08/18 Lactose-Reduced Food/Fiber [Jevity 1.5 Del Liquid] 1,000 ml GT ASDIR 02/04/19 Albuterol 0.083% Nebulizer Kathleen [Ventolin 0.083% Nebulizer Soln -] 1 neb NEB Q4H PRN #30 vial 03/06/19 Ammonium Lactate Cream [Lac-Hydrin 12% Cream -] 1 applic TD BID 04/10/19 Bacitracin - [Bacitracin Topical Ointment -] 1 applic TP BID 04/10/19 Budesonide/Formeterol Fumarate [SYMBICORT 80/4.5mcg -] 2 puff IH BID 04/10/19 Mupirocin Ointment [Bactroban 2% Ointment -] 1 applic TD TID 04/10/19 predniSONE ORAL SOLUTION [Deltasone Oral Solution 5 MG/5 ML -] 10 mg GT DAILY # 1 cup 04/12/19 Asthma: Yes Cardiac Disorders: Yes COPD: No GI Disorders: Yes (esophagitis) Seizures: Yes (epilepsy) - Surgical History Abdominal Surgery: No Appendectomy: No Cardiac Surgery: No Cholecystectomy: Yes Lung Surgery: No Neurologic Surgery: No Orthopedic Surgery: No - Immunization History Immunization Up to Date: Yes - Psycho Social/Smoking Cessation Hx Smoking History: Never smoked Have you smoked in the past 12 months: No Hx Alcohol Use: No Drug/Substance Use Hx: No Substance Use Type: None Hx Substance Use Treatment: No *Physical Exam - Vital Signs Last Vital Signs Temp Pulse Resp BP Pulse Ox 99.4 F 103 H 24 H 127/78 100 04/23/19 10:23 04/23/19 10:23 04/23/19 10:23 04/23/19 10:23 04/23/19 10:23 Heart Score/ECG Review - ECG Impressions Comment:: 04/23/19 19:01 Sinus Tachy at 102 bpm, nl intervals, no ST-T wave elevations/depressions. ED Treatment Course - LABORATORY CBC & Chemistry Diagram: 04/23/19 11:09 04/23/19 11:09 Medical Decision Making - Medical Decision Making 04/23/19 11:00 cbc w/ diff, cmp, ekg, cxr Pt received 3 nebulizer treatments as well as dexamethasone en route to Hospital. Rectal temp 99.4 04/23/19 12:35 CXR No acute pathology. No WBC elevation. pt in no acute respiratory distress. Will d/c patient back to [facility]. 04/23/19 12:37 Pt signed out to Dieter KHAN at [facility]. Discharge - Discharge Information Problems reviewed: Yes Condition: Improved Disposition: HALF-WAY FACILITY - Admission No - Follow up/Referral Referrals: Braydon Bloom Jr [Non Staff, Medical] - - Patient Discharge Instructions Patient Printed Discharge Instructions: DI for Asthma -- Adult Additional Instructions: You were treated in our Emergency Department due to respiratory distress. Please return to the Emergency Department immediately if you become short of breath, develop chest pain, or have any worsening or abnormal symptoms. Please see your primary Care physician this week. - Post Discharge Activity
[2019-04-23 11:31] LABS: BASO % 0.6 % (0-2.0); HEMATOCRIT 46.2 % (32.4-45.2); HEMOGLOBIN 15.2 GM/dL (10.7-15.3); LYMPH % 14.5 % (8-40); MEAN CELL VOLUME 84.8 fl (80-96); MEAN PLT VOLUME 8.8 fl (7.5-11.1); MONO % 5.5 % (3.8-10.2); NEUT % 73.4 % (42.8-82.8); PLATELET COUNT 266 K/MM3 (134-434); RBC 5.45 M/mm3 (3.60-5.2); RDW 14.6 % (11.6-15.6)
[2019-04-23 11:43] LABS: BILIRUBIN,TOTAL 0.2 mg/dL (0.2-1); BLOOD UREA NITROGEN 17.4 mg/dL (7-18); CALCIUM 9.3 mg/dL (8.5-10.1); CREATININE 0.5 mg/dL (0.55-1.3); POTASSIUM 4.3 mmol/L (3.5-5.1)
--- NOTE | 2019-04-23 12:43 | PDOC ---
Documentation entered by Adrianna Randhawa SCRIBE, acting as scribe for Luna Ascencio MD. Luna Ascencio MD: This documentation has been prepared by the E[employer] Nirvannie, SCRIBE, under my direction and personally reviewed by me in its entirety. I confirm that the documentation accurately reflects all work, treatment, procedures, and medical decision making performed by me. Attending Attestation - Resident Resident Name: Chau Sawyer - ED Attending Attestation I have performed the following: I have examined & evaluated the patient, The case was reviewed & discussed with the resident, I agree w/resident's findings & plan - HPI HPI: 04/23/19 11:42 The patient is a 38 year old male, with a significant past medical history of MR , congenital scoliosis (insertion of lugue gavin), melissa fundoplication, microcephalus, otitis media, volvulus, epilepsy, GERD, and asthma, who presents to the emergency department via EMS from [facility] with shortness of breath. As per aid at bedside, her O2 saturation was noted to be 90% prompting her arrival to the ED. As per EMS, patient was given 3 nebulizer treatments and 10 mg dexamethasone en route. Allergies: NKDA - Physicial Exam PE: 04/23/19 11:46 GENERAL: Nonverbal, quadriplegic, awake and alert, no acute distress at time of exam HEAD: Microcephaly, EOMI, sclera anicteric, MMM PULM: Diffuse wheezes and stridor appreciated, accessory muscle use CARD: Tachycardic, regular rhythm, S1 and S2 present ABD: Soft, nontender to palpation, nondistended. G tube in place. EXT: Upper extremities contracted, WWP, no clubbing / cyanosis / edema NEURO: Alert, Nonverbal, quadriplegic, unable to cooperate with exam - Medical Decision Making 04/23/19 11:50 38 yo F h/o asthma presenting with wheezing DD includes Asthma exacerbation, unlikely cardiac in origin, foreign body (possible but pt was observed in the shower), pneumonia, pneumothorax Will do: Labs CXR Continue nebs Re assess EKG: Normal sinus rhythm, rate of 102 bpm, axis nml, inervals nml, no st elevation or depression, t waves flattened 04/23/19 11:50 Laboratory Tests 04/23/19 04/23/19 11:09 11:09 BUN 17.4 Creatinine 0.5 L Serum , Qual Negative 04/23/19 11:51 04/23/19 12:42 CXR - nml 04/23/19 12:42 Laboratory Tests 04/23/19 11:09 WBC 7.0 Hgb 15.2 Hct 46.2 H Plt Count 266 Repeat O2 = 99% No wheezing on examination Will plan to discharge to home Clinical impression: Asthma exacerbation
[2019-04-23 13:39] VITALS: BP 112/66; PULSE 89
--- NOTE | 2019-04-24 11:30 | EKG ---
Test Reason : Blood Pressure : / mmHG Vent. Rate : 102 BPM Atrial Rate : 102 BPM P-R Int : 130 ms QRS Dur : 060 ms QT Int : 344 ms P-R-T Axes : 054 063 048 degrees QTc Int : 448 ms POOR DATA QUALITY, INTERPRETATION MAY BE ADVERSELY AFFECTED SINUS TACHYCARDIA OTHERWISE NORMAL ECG WHEN COMPARED WITH ECG OF 06-MAR-2019 07:05, NO SIGNIFICANT CHANGE WAS FOUND Confirmed by ZEN GOMES, YARED ([id number]) on 04/24/2019 11:30:40 AM Referred By: Confirmed By:YARED ZALDIVAR MD
== END 2019-04-23 13:41 ==
LOC: JER 10:04
DX: J45.901 Unspecified asthma with (acute) exacerbation (principal); F78 Other intellectual disabilities; G40.802 Other epilepsy, not intractable, without status epilepticus; Q67.5 Congenital deformity of spine; K21.9 Gastro-esophageal reflux disease without esophagitis; K56.2 Volvulus; Q02 Microcephaly; G80.8 Other cerebral palsy
CPT/HCPCS: 36415; 71045-TC-FY; 80053; 84703; 85025; 93005; 93010; 99282-25

== ENCOUNTER 2019-04-24 09:51 | Inpatient (IN) | payer OTHER ==
[2019-04-24] MEDS ORDERED: MAGNESIUM SULF 50% (8.12 MEQ/2 ML-1 GM VIAL) IVPB ONE (10:29)
[2019-04-24] MEDS ORDERED: ALBUTEROL SO4 0.083% IH SOL 2.5 MG/3 ML VIAL.NEB. NEB ONE ×2 (10:31→10:50)
[2019-04-24] MEDS ORDERED: methylPREDNISolone NA SUCC 125 MG/2 ML VIAL IVPUSH ONE (10:31)
--- NOTE | 2019-04-24 10:45 | PDOC ---
History of Present Illness - General Chief Complaint: Shortness of Breath Stated Complaint: SOB Time Seen by Provider: 04/24/19 10:04 History Source: Care Provider, Group Home Records Exam Limitations: Clinical Condition, Physical Impairment - History of Present Illness Initial Comments: 04/24/19 10:33 HPI 38 YOF with significant past medical history of MR, congenital scoliosis ( insertion of lugue gavin), melissa fundoplication, microcephalus, otitis media, volvulus, epilepsy, GERD, and asthma, who presents to the emergency department via EMS from [place] with shortness of breath. As per aid at bedside and [place] records, she started re-experiencing respiratory distress and wheezing, +accessory muscle use; facility administered duonebs x 2 without effect, vital signs remarkable for tachycardia 127, SpO2 94% , normotensive and low grade temperature 99. Seen yesterday here for similar sx, hypoxia down to 90% and respiratory distress/wheezing, SOB and asthma exacerbation. Her O2 saturation was noted to be 90% prompting her arrival to the ED. As per EMS, patient was given 3 nebulizer treatments and 10 mg dexamethasone en route. Treated with nebs and dexamethasone yesterday, seen in the ED and evaluated, Cxr unremarkable. Sats had improved, wheezing improved, discharged back with asthma flare. history limited 2/2 patient's baseline MR, nonverbal status - collaterals from [place] documents and health aid at bedside. Allergies: None Past Medical History/PSH: as above Social history: Lives with family. No tobacco, ETOH or drug use. Meds: as documented in EMR Family history: noncontributory Review of systems limited 2/2 clinical condition Physical exam GENERAL: Nonverbal, quadriplegic, awake and alert, no acute distress at time of exam HEAD: Microcephaly, EOMI, sclera anicteric, MMM PULM: Diffuse wheezes, +bilateral rhonchi (upper respiratory transmissions), accessory muscle use CARD: Tachycardic, regular rhythm, S1 and S2 present ABD: Soft, nontender to palpation. G tube in place in LUQ. protuberant, nontender NEURO: Alert, Nonverbal, quadriplegic, unable to cooperate with exam Skin: warm and well perfused, cap refill <2 sec, normal color, no rash or skin discoloration. MSK: no edema, BRO x4, ROM intact. contracted extremities. Extremities: contracted in all extremities Past History - Past Medical History Allergies/Adverse Reactions: Allergies Allergy/AdvReac Type Severity Reaction Status Date / Time No Known Allergies Allergy Verified 04/24/19 10:22 Home Medications: Ambulatory Orders Acetaminophen Oral Solution [Tylenol 160mg/5mL Oral Solution -] 650 mg GT Q6H PRN 08/08/18 Clotrimazole 1 applic TD BID 08/08/18 Hydrocortisone 1% Cream [Hytone 1% Cream -] 1 applic TP BID 08/08/18 Ipratropium/Albuterol Sulfate [Iprat-Albut 0.5-3(2.5) mg/3 ml] 3 ml IH QID 08/08 Magnesium Hydrox 2400MG/30Ml [Milk of Magnesia -] 30 ml GT HS 08/08/18 Montelukast Na [Singulair -] 10 mg GT HS 08/08/18 Phenobarbital 32.4 mg GT HS 08/08/18 Phenobarbital 64.8 mg GT HS 08/08/18 Lactose-Reduced Food/Fiber [Jevity 1.5 Del Liquid] 1,000 ml GT ASDIR 02/04/19 Albuterol 0.083% Nebulizer Kathleen [Ventolin 0.083% Nebulizer Soln -] 1 neb NEB Q4H PRN #30 vial 03/06/19 Ammonium Lactate Cream [Lac-Hydrin 12% Cream -] 1 applic TD BID 04/10/19 Bacitracin - [Bacitracin Topical Ointment -] 1 applic TP BID 04/10/19 Budesonide/Formeterol Fumarate [SYMBICORT 80/4.5mcg -] 2 puff IH BID 04/10/19 Mupirocin Ointment [Bactroban 2% Ointment -] 1 applic TD TID 04/10/19 predniSONE ORAL SOLUTION [Deltasone Oral Solution 5 MG/5 ML -] 10 mg GT DAILY # 1 cup 04/12/19 Asthma: Yes Cardiac Disorders: Yes COPD: No GI Disorders: Yes (esophagitis) Seizures: Yes (epilepsy) Other medical history: microcephalus, Congenital Quadriplegia,Profound Mental Retardation - Surgical History Abdominal Surgery: No Appendectomy: No Cardiac Surgery: No Cholecystectomy: Yes Lung Surgery: No Neurologic Surgery: Yes (Spine) Orthopedic Surgery: No - Immunization History Immunization Up to Date: Yes - Psycho Social/Smoking Cessation Hx Smoking History: Never smoked Have you smoked in the past 12 months: No Information on smoking cessation initiated: No Hx Alcohol Use: No Drug/Substance Use Hx: No Substance Use Type: None Hx Substance Use Treatment: No Review of Systems - Review of Systems Able to Perform ROS?: No (clinical condition, NV) *Physical Exam - Vital Signs Last Vital Signs Temp Pulse Resp BP Pulse Ox 99.7 F H 103 H 24 H 111/71 100 04/24/19 09:51 04/24/19 09:51 04/24/19 09:51 04/24/19 09:51 04/24/19 09:51 ED Treatment Course - LABORATORY CBC & Chemistry Diagram: 04/24/19 10:45 04/24/19 10:45 - RADIOLOGY Radiology Studies Ordered: Category Date Time Status CHEST X-RAY PORTABLE* [RAD] Stat Radiology 04/24/19 10:04 Ordered Medical Decision Making - Medical Decision Making 04/24/19 10:49 Vital Signs Temp Pulse Resp BP Pulse Ox 99.7 F H 103 H 24 H 111/71 100 04/24/19 09:51 04/24/19 09:51 04/24/19 09:51 04/24/19 09:51 04/24/19 09:51 DDx SOB: ACS, PE, PTX, CHF, COPD exac, pulmonary edema, pleurisy, pneumonia, viral syndrome. effusion. anemia, electrolyte/metabolic derangements. Vitals are notable for low-grade temperature but no fever, tachycardia likely due to the albuterol treatments, mild tachypnea and respiratory accessory muscle use, hemodynamically appropriate and saturations have been 100% while getting nebulizer treatments. Records from yesterday also reviewed, patient is having asthma exacerbation and will treat with IV Solu-Medrol, additional albuterol nebulizers as warranted as she is getting the full 3 dose already since prior to presentation with EMS and [place], magnesium, supplemental oxygen as necessary. We will also obtain RSV/flu swab as possible precipitants. Chest x-ray. Basic labs and EKG. 04/24/19 12:21 Laboratory results are unremarkable, normal WBC count. Lactic is also normal, which is reassuring. Cultures are pending, RSV and flu swab are negative. Chest x-ray appears clear, no free air in the diaphragm, she has a history of volvulus, dilated transverse colon seen under the diaphragm. abdomen is soft, no grimacing/tenderness elicited. Imaging is limited as patient is rotated and scoliotic. Defer any antibiotics at this time as no fevers. Will treat as acute asthma exacerbation, refractory to outpatient therapy and will admit to medical service for further management. admit to hospitalist service, dr urbano , s/o to [facility] Cook. 04/24/19 12:23 04/24/19 12:30 Discharge - Discharge Information Problems reviewed: Yes Clinical Impression/Diagnosis: Asthma exacerbation Qualifiers: Asthma severity: moderate Asthma persistence: unspecified Qualified Code(s): J45.901 - Unspecified asthma with (acute) exacerbation Condition: Guarded - Admission Yes - Follow up/Referral Referrals: Braydon Bloom Jr [Primary Care Provider] - - Patient Discharge Instructions - Post Discharge Activity
[2019-04-24] MEDS ORDERED: methylPREDNISolone NA SUCC 125 MG/2 ML VIAL ONE (10:50)
[2019-04-24] MEDS ORDERED: MAGNESIUM SULF 50% (8.12 MEQ/2 ML-1 GM VIAL) ONE (10:50)
[2019-04-24 11:15] LABS: BASO % 0.5 % (0-2.0); EOS % 1.2 % (0-4.5); HEMATOCRIT 40.7 % (32.4-45.2); HEMOGLOBIN 13.5 GM/dL (10.7-15.3); LYMPH % 17.6 % (8-40); MCH 27.7 pg (25.7-33.7); MCHC 33.2 g/dl (32.0-36.0); MEAN CELL VOLUME 83.2 fl (80-96); MEAN PLT VOLUME 8.8 fl (7.5-11.1); MONO % 6.5 % (3.8-10.2); NEUT % 74.2 % (42.8-82.8); PLATELET COUNT 252 K/MM3 (134-434); RBC 4.89 M/mm3 (3.60-5.2); RDW 14.6 % (11.6-15.6); WHITE BLOOD COUNT 9.5 K/mm3 (4.0-10.0)
[2019-04-24 11:34] LABS: ALBUMIN 3.4 g/dl (3.4-5.0); BILIRUBIN,TOTAL 0.2 mg/dL (0.2-1); BLOOD UREA NITROGEN 15.1 mg/dL (7-18); CALCIUM 9.1 mg/dL (8.5-10.1); CREATININE 0.4 mg/dL (0.55-1.3); POTASSIUM 3.6 mmol/L (3.5-5.1); TOT PROT 7.1 g/dl (6.4-8.2)
--- NOTE | 2019-04-24 12:41 | HP ---
CHIEF COMPLAINT: PCP: HISTORY OF PRESENT ILLNESS: ER course was notable for: (1) Solumedrol 125mg IV (2) DUo nebs x 3 (3)RSV and flu swab are negative Recent Travel: None. [facility] resident PAST MEDICAL HISTORY: Asthma: Yes Cardiac Disorders: Yes COPD: No GI Disorders: Yes (esophagitis) Seizures: Yes (epilepsy) Other medical history: microcephalus, Congenital Quadriplegia,Profound Mental Retardation - Surgical History Abdominal Surgery: No Appendectomy: No Cardiac Surgery: No Cholecystectomy: Yes Lung Surgery: No Neurologic Surgery: Yes (Spine) Orthopedic Surgery: No - Immunization History Immunization Up to Date: Yes - Psycho Social/Smoking Cessation Hx Smoking History: Never smoked Have you smoked in the past 12 months: No Information on smoking cessation initiated: No Hx Alcohol Use: No Drug/Substance Use Hx: No Substance Use Type: None Hx Substance Use Treatment: N PAST SURGICAL HISTORY: Allergies No Known Allergies Allergy (Verified 04/24/19 10:22) HOME MEDICATIONS: Home Medications Medication Instructions Recorded Acetaminophen Oral Solution 650 mg GT Q6H PRN 08/08/18 [Tylenol 160mg/5mL Oral Solution -] Clotrimazole 1 applic TD BID 08/08/18 Hydrocortisone 1% Cream [Hytone 1% 1 applic TP BID 08/08/18 Cream -] Ipratropium/Albuterol Sulfate 3 ml IH QID 08/08/18 [Iprat-Albut 0.5-3(2.5) mg/3 ml] Magnesium Hydrox 2400MG/30Ml [Milk 30 ml GT HS 08/08/18 of Magnesia -] Montelukast Na [Singulair -] 10 mg GT HS 08/08/18 Phenobarbital 32.4 mg GT HS 08/08/18 Phenobarbital 64.8 mg GT HS 08/08/18 Lactose-Reduced Food/Fiber [Jevity 1,000 ml GT ASDIR 02/04/19 1.5 Del Liquid] Albuterol 0.083% Nebulizer Kathleen 1 neb NEB Q4H PRN #30 vial 03/06/19 [Ventolin 0.083% Nebulizer Soln -] Ammonium Lactate Cream [Lac-Hydrin 1 applic TD BID 04/10/19 12% Cream -] Bacitracin - [Bacitracin Topical 1 applic TP BID 04/10/19 Ointment -] Budesonide/Formeterol Fumarate 2 puff IH BID 04/10/19 [SYMBICORT 80/4.5mcg -] Mupirocin Ointment [Bactroban 2% 1 applic TD TID 04/10/19 Ointment -] predniSONE ORAL SOLUTION 10 mg GT DAILY #1 cup 04/12/19 [Deltasone Oral Solution 5 MG/5 ML -] REVIEW OF SYSTEMS unable to obtain duo to physical condition PHYSICAL EXAMINATION Vital Signs - 24 hr 04/24/19 04/24/19 09:51 11:44 Temperature 99.7 F H Pulse Rate 103 H Pulse Rate [ 117 H Apical] Respiratory 24 H 20 Rate Blood Pressure 111/71 Blood Pressure 113/71 [Left Arm] O2 Sat by Pulse 100 98 Oximetry (%) Constitutional: Yes: No Distress, Thin Eyes: Yes: WNL, Conjunctiva Clear HENT: Yes: Other (extensive keloids around neck with indurated areas). Green/ yellow secretions to both nares Cardiovascular: Yes: WNL, Regular Rate and Rhythm Respiratory: Yes: WNL, Diminished (at bases) Gastrointestinal: Yes: WNL, Normal Bowel Sounds, Other (GT in place) ...Rectal Exam: Yes: Deferred Genitourinary: Yes: Incontinence Breast(s): Yes: WNL Musculoskeletal: Yes: Joint Stiffness Extremities: Yes: Other (contractures) Edema: No Peripheral Pulses WNL: Yes Peripheral Pulses: Left Radial: 2+, Right Radial: 2+, Left Doralis Pedis: 2+, Right Dorsalis Pedis: 2+, Left Femoral: 2+, Right Femoral: 2+ Integumentary: Yes: Other (keloids) Neurological: Yes: Other (non verbal) Psychiatric: Yes: Alert (tracks with eyes) Labs: Laboratory Results - last 24 hr 04/24/19 04/24/19 04/24/19 10:27 10:45 10:45 WBC 9.5 RBC 4.89 Hgb 13.5 Hct 40.7 MCV 83.2 MCH 27.7 MCHC 33.2 RDW 14.6 Plt Count 252 MPV 8.8 Absolute Neuts (auto) 7.0 Neutrophils % 74.2 Lymphocytes % 17.6 D Monocytes % 6.5 Eosinophils % 1.2 Basophils % 0.5 Nucleated RBC % 0 Sodium 136 Potassium 3.6 Chloride 104 Carbon Dioxide 25 Anion Gap 7 L BUN 15.1 Creatinine 0.4 L Est GFR (CKD-EPI)AfAm 153.14 Est GFR (CKD-EPI)NonAf 132.13 Random Glucose 97 Lactic Acid Calcium 9.1 Total Bilirubin 0.2 AST 19 ALT 36 Alkaline Phosphatase 79 Total Protein 7.1 Albumin 3.4 Influenza A (Rapid) Negative Influenza B (Rapid) Negative RSV Rapid 04/24/19 04/24/19 11:20 11:20 WBC RBC Hgb Hct MCV MCH MCHC RDW Plt Count MPV Absolute Neuts (auto) Neutrophils % Lymphocytes % Monocytes % Eosinophils % Basophils % Nucleated RBC % Sodium Potassium Chloride Carbon Dioxide Anion Gap BUN Creatinine Est GFR (CKD-EPI)AfAm Est GFR (CKD-EPI)NonAf Random Glucose Lactic Acid 1.0 Calcium Total Bilirubin AST ALT Alkaline Phosphatase Total Protein Albumin Influenza A (Rapid) Influenza B (Rapid) RSV Rapid Negative ASSESSMENT/PLAN: - ....Imaging Chest X-ray: Image Reviewed ( elevated right hemidiaphragm, no effsuions or infiltrates) Problem List - Problems (1) Functional quadriplegia Assessment/Plan: severe contracture to all extremities turn and reposition q2h skin care PT fall precautions Code(s): R53.2 - FUNCTIONAL QUADRIPLEGIA (2) PEG (percutaneous endoscopic gastrostomy) status Code(s): Z93.1 - GASTROSTOMY STATUS (3) Asthma exacerbation Assessment/Plan: Steroids given in ED with much improvement hypoxia reported, in ED SPO2 98% low grade temp 99.7 monitor temperature curve c/w solumedrol 40mg IV q6H c/w inhaled bronchodilators restart home singular maintain O2 to keep SpO2 >90% aspiration precautions Code(s): J45.901 - UNSPECIFIED ASTHMA WITH (ACUTE) EXACERBATION Qualifiers: Asthma severity: unspecified severity Asthma persistence: intermittent Qualified Code(s): J45.21 - Mild intermittent asthma with (acute) exacerbation (4) Acute respiratory failure Assessment/Plan: see above Code(s): J96.00 - ACUTE RESPIRATORY FAILURE, UNSP W HYPOXIA OR HYPERCAPNIA Qualifiers: Respiratory failure complication: hypoxia Qualified Code(s): J96.01 - Acute respiratory failure with hypoxia (5) History of keloid of skin Assessment/Plan: skin care Code(s): Z87.2 - PERSONAL HISTORY OF DISEASES OF THE SKIN, SUBCU (6) On enteral nutrition Assessment/Plan: re-start Jevity 1.5 @ 20cc and increase every 4 hrs for goal of 45 Code(s): Z78.9 - OTHER SPECIFIED HEALTH STATUS (7) Seizure disorder Assessment/Plan: c/w phenobarbital via GT Code(s): G40.909 - EPILEPSY, UNSP, NOT INTRACTABLE, WITHOUT STATUS EPILEPTICUS (8) Prophylactic measure Assessment/Plan: FEN additional fluids in GT c/w Jevity monitor electrolytes DVT heparin sq Dispo admit to med surg floor full code discharge planning back to [facility] when medically improved Code(s): Z29.9 - ENCOUNTER FOR PROPHYLACTIC MEASURES, UNSPECIFIED Family Medical History Family History: Unable to Obtain Problem List - Problem (1) Acute respiratory failure Code(s): J96.00 - ACUTE RESPIRATORY FAILURE, UNSP W HYPOXIA OR HYPERCAPNIA Qualifiers: Respiratory failure complication: hypoxia Qualified Code(s): J96.01 - Acute respiratory failure with hypoxia (2) Asthma exacerbation Code(s): J45.901 - UNSPECIFIED ASTHMA WITH (ACUTE) EXACERBATION Qualifiers: Asthma severity: moderate Asthma persistence: unspecified Qualified Code( s): J45.901 - Unspecified asthma with (acute) exacerbation (3) Functional quadriplegia Code(s): R53.2 - FUNCTIONAL QUADRIPLEGIA (4) History of keloid of skin Code(s): Z87.2 - PERSONAL HISTORY OF DISEASES OF THE SKIN, SUBCU (5) Hypoxia Code(s): R09.02 - HYPOXEMIA (6) PEG (percutaneous endoscopic gastrostomy) status Code(s): Z93.1 - GASTROSTOMY STATUS (7) Prophylactic measure Code(s): Z29.9 - ENCOUNTER FOR PROPHYLACTIC MEASURES, UNSPECIFIED (8) On enteral nutrition Code(s): Z78.9 - OTHER SPECIFIED HEALTH STATUS (9) Seizure disorder Code(s): G40.909 - EPILEPSY, UNSP, NOT INTRACTABLE, WITHOUT STATUS EPILEPTICUS Visit type - Emergency Visit Emergency Visit: Yes Care time: The patient presented to the Emergency Department on the above date and was hospitalized for further evaluation of their emergent condition. - New Patient This patient is new to me today: Yes Date on this admission: 04/24/19 - Critical Care Critical Care patient: No
[2019-04-24] MEDS ORDERED: ACETAMINOPHEN 650 MG/20.3 ML ORAL SOLUTION (CUPS) GT PRN (13:23)
[2019-04-24] MEDS: MUPIROCIN 2% TOPICAL OINTMENT 22 GM TUBE TP SCH ×3 (14:09→23:26)
[2019-04-24 15:12] VITALS: BMI 20.8
[2019-04-24] MEDS: methylPREDNISolone NA SUCC 40 MG/1 ML VIAL IVPUSH SCH ×2 (17:43→23:55)
[2019-04-24] MEDS ORDERED: INSULIN SLIDING SCALE (NOVOLOG) 1 VIAL SQ SCH (18:00)
[2019-04-24] MEDS ORDERED: PT OWN MED DRAWER 7, Y5N ONE (21:41)
[2019-04-24] MEDS: CLOTRIMAZOLE 1% VAGINAL CREAM WITH APPLICATOR 45 GM TUBE VG SCH (21:49)
[2019-04-24] MEDS: BACITRACIN 15 GM TUBE TOPICAL OINTMENT TP SCH (21:49)
[2019-04-24] MEDS: PHENobarbital 20 MG/5 ML UNIT-DOSE CUP GT SCH (21:49)
[2019-04-24] MEDS: MAGNESIUM HYDROX 2400MG/30ML ORAL SUSPENSION 30 ML CUP GT SCH (21:49)
[2019-04-24] MEDS: MONTELUKAST NA 10 MG TABLET GT SCH (21:49)
[2019-04-24] MEDS: HYDROCORTISONE 1% TOPICAL CREAM 30 GM TUBE TP SCH ×3 (21:50→23:27)
[2019-04-24] MEDS ORDERED: MAGNESIUM HYDROX 2400MG/30ML ORAL SUSPENSION 30 ML CUP PO SCH (22:00)
[2019-04-25] MEDS: MUPIROCIN 2% TOPICAL OINTMENT 22 GM TUBE TP SCH ×3 (05:52→22:51)
[2019-04-25] MEDS: methylPREDNISolone NA SUCC 40 MG/1 ML VIAL IVPUSH SCH ×3 (05:52→17:25)
[2019-04-25] MEDS: INSULIN SLIDING SCALE (NOVOLOG) 1 VIAL SQ SCH ×4 (06:21→17:24)
[2019-04-25] MEDS: ALBUTEROL SO4 0.083% IH SOL 2.5 MG/3 ML VIAL.NEB. NEB PRN ×3 (07:12→21:15)
--- NOTE | 2019-04-25 07:49 | PN ---
Progress Note, Physician Chief Complaint: Pt nonverbal. Caregiver from [place] at bedside and states she sounded "congested" last night but otherwise had a good night History of Present Illness: HPI 38 YOF with significant past medical history of MR, congenital scoliosis ( insertion of lugue gavin), melissa fundoplication, microcephalus, otitis media, volvulus, epilepsy, GERD, and asthma, who presents to the emergency department via EMS from [place] with shortness of breath. As per aid at bedside and [place] records, she started re-experiencing respiratory distress and wheezing, +accessory muscle use; facility administered duonebs x 2 without effect, vital signs remarkable for tachycardia 127, SpO2 94% , normotensive and low grade temperature 99. Seen yesterday here for similar sx, hypoxia down to 90% and respiratory distress/wheezing, SOB and asthma exacerbation. Her O2 saturation was noted to be 90% prompting her arrival to the ED. As per EMS, patient was given 3 nebulizer treatments and 10 mg dexamethasone en route. Treated with nebs and dexamethasone yesterday, seen in the ED and evaluated, Cxr unremarkable. Sats had improved, wheezing improved, discharged back with asthma flare. history limited 2/2 patient's baseline MR, nonverbal status - collaterals from [place] documents and health aid at bedside. - Current Medication List Current Medications: Active Medications Acetaminophen (Tylenol Oral Solution -) 650 mg GT Q6H PRN PRN Reason: FEVER Albuterol Sulfate (Ventolin 0.083% Nebulizer Soln -) 1 amp NEB RQID PRN PRN Reason: SHORT OF BREATH/WHEEZING Last Admin: 04/25/19 07:12 Dose: 1 amp Bacitracin (Bacitracin -) 1 applic TP BID [facility] Last Admin: 04/24/19 21:49 Dose: 1 applic Clotrimazole (Gyne-Lotrimin -) 1 applic VG BID [facility] Last Admin: 04/24/19 21:49 Dose: 1 applic Hydrocortisone (Hytone 1% Cream -) 1 applic TP BID [facility] Last Admin: 04/24/19 23:27 Dose: 1 applic Insulin Aspart (Novolog Vial Sliding Scale -) 1 vial SQ Q6HPO [facility]; Protocol Last Admin: 04/25/19 06:21 Dose: Not Given Lactulose (Cephulac (Oral Use)) 20 gm GT DAILY [facility] Magnesium Hydroxide (Milk Of Magnesia -) 30 ml GT DAILY@2200 [facility] Last Admin: 04/24/19 21:49 Dose: 30 ml Methylprednisolone Sodium Succinate (Solu-Medrol -) 40 mg IVPUSH Q6H [facility] Last Admin: 04/25/19 05:52 Dose: 40 mg Montelukast Sodium (Singulair -) 10 mg GT HS [facility] Last Admin: 04/24/19 21:49 Dose: 10 mg Mupirocin (Bactroban 2% Ointment -) 1 applic TP TID [facility] Last Admin: 04/25/19 05:52 Dose: 1 applic Phenobarbital (Phenobarbital Liquid -) 30 mg GT DAILY [facility] Phenobarbital (Phenobarbital Liquid -) 60 mg GT HS [facility] Last Admin: 04/24/19 21:49 Dose: 60 mg - Objective Vital Signs: Vital Signs Temperature 98.0 F 04/25/19 05:00 Pulse Rate 90 04/25/19 05:00 Respiratory Rate 18 04/25/19 05:00 Blood Pressure 110/60 04/25/19 05:00 O2 Sat by Pulse Oximetry (%) 96 04/24/19 21:00 Additional Findings/Remarks: Constitutional: Yes: No Distress, Thin Eyes: Yes: WNL, Conjunctiva Clear HENT: Yes: Other (extensive keloids around neck with indurated areas). Green/ yellow secretions to both nares Cardiovascular: Yes: WNL, Regular Rate and Rhythm Respiratory: Yes: WNL, Diminished (at bases) Gastrointestinal: Yes: WNL, Normal Bowel Sounds, Other (GT in place) ...Rectal Exam: Yes: Deferred Genitourinary: Yes: Incontinence Breast(s): Yes: WNL Musculoskeletal: Yes: Joint Stiffness Extremities: Yes: Other (contractures) Edema: No Peripheral Pulses WNL: Yes Peripheral Pulses: Left Radial: 2+, Right Radial: 2+, Left Doralis Pedis: 2+, Right Dorsalis Pedis: 2+, Left Femoral: 2+, Right Femoral: 2+ Integumentary: Yes: Other (keloids) Neurological: Yes: Other (non verbal) Psychiatric: Yes: Alert (tracks with eyes) Labs: CBC, BMP 04/24/19 10:45 04/24/19 10:45 Problem List - Problems (1) Acute respiratory failure Assessment/Plan: No hypoxia overnight supplemental o2 TO MAINTAIN spo2 >90% c/w steroids/ nebs will decrease steroids to twice daily tomorrow if continues to improve Code(s): J96.00 - ACUTE RESPIRATORY FAILURE, UNSP W HYPOXIA OR HYPERCAPNIA Qualifiers: Respiratory failure complication: hypoxia Qualified Code(s): J96.01 - Acute respiratory failure with hypoxia (2) Asthma exacerbation Assessment/Plan: Steroids given in ED with much improvement hypoxia reported, in ED SPO2 98% low grade temp 99.7, afbrile overnight monitor temperature curve c/w solumedrol 40mg IV q6H c/w inhaled bronchodilators restart home singular maintain O2 to keep SpO2 >90% aspiration precautions Code(s): J45.901 - UNSPECIFIED ASTHMA WITH (ACUTE) EXACERBATION Qualifiers: Asthma severity: moderate Asthma persistence: unspecified Qualified Code( s): J45.901 - Unspecified asthma with (acute) exacerbation (3) Functional quadriplegia Assessment/Plan: severe contracture to all extremities turn and reposition q2h skin care PT fall precautions Code(s): R53.2 - FUNCTIONAL QUADRIPLEGIA (4) History of keloid of skin Assessment/Plan: c/w hydrocortisone and mupirocin creams Code(s): Z87.2 - PERSONAL HISTORY OF DISEASES OF THE SKIN, SUBCU (5) Hypoxia Code(s): R09.02 - HYPOXEMIA (6) PEG (percutaneous endoscopic gastrostomy) status Assessment/Plan: tolerating Jevity Code(s): Z93.1 - GASTROSTOMY STATUS (7) Prophylactic measure Code(s): Z29.9 - ENCOUNTER FOR PROPHYLACTIC MEASURES, UNSPECIFIED (8) On enteral nutrition Assessment/Plan: Jevity 1.5 @ 45 cc/he goal rate Code(s): Z78.9 - OTHER SPECIFIED HEALTH STATUS (9) Seizure disorder Assessment/Plan: c/w phenobarb via GT Code(s): G40.909 - EPILEPSY, UNSP, NOT INTRACTABLE, WITHOUT STATUS EPILEPTICUS (10) Severe malnutrition Assessment/Plan: BMI 20.8 ks Alb 3.4 severely contracted muscle and temperol wasting with exposed bony prominences c/w jevity at goal rate [employer]oultry [employer] to see Code(s): E43 - UNSPECIFIED SEVERE PROTEIN-CALORIE MALNUTRITION (11) Ileus Assessment/Plan: persistent ilues pattern on AXR no significant progression from prior AXR c/w aggressive bowel regimine Code(s): K56.7 - ILEUS, UNSPECIFIED (12) assisted resident Code(s): Z59.3 - PROBLEMS RELATED TO LIVING IN RESIDENTIAL INSTITUTION (13) Lives in long-term care facility Assessment/Plan: [place] resident Code(s): Z59.3 - PROBLEMS RELATED TO LIVING IN RESIDENTIAL INSTITUTION Visit type - Emergency Visit Emergency Visit: Yes ED Registration Date: 04/24/19 Care time: The patient presented to the Emergency Department on the above date and was hospitalized for further evaluation of their emergent condition. - New Patient This patient is new to me today: No - Critical Care Critical Care patient: No - Discharge Referral Referred to [facility] No
[2019-04-25] MEDS: BACITRACIN 15 GM TUBE TOPICAL OINTMENT TP SCH ×2 (09:45→22:52)
[2019-04-25] MEDS: PHENobarbital 20 MG/5 ML UNIT-DOSE CUP GT SCH ×2 (09:47→22:52)
[2019-04-25] MEDS: HYDROCORTISONE 1% TOPICAL CREAM 30 GM TUBE TP SCH ×2 (09:47→22:52)
[2019-04-25] MEDS: CLOTRIMAZOLE 1% VAGINAL CREAM WITH APPLICATOR 45 GM TUBE VG SCH ×2 (09:47→22:52)
[2019-04-25] MEDS ORDERED: PHENOBARBITAL 20 MG/5 ML LIQUID GT SCH (10:00)
[2019-04-25] MEDS ORDERED: LACTULOSE 20 GM/30 ML UDC (FOR ORAL USE ONLY) GT SCH (10:00)
[2019-04-25] MEDS ORDERED: LACTULOSE 20 GM/30 ML UDC (FOR ORAL USE ONLY) PO SCH (10:00)
[2019-04-25] MEDS ORDERED: PHENobarbital 20 MG/5 ML UNIT-DOSE CUP GT SCH (10:00)
--- NOTE | 2019-04-25 10:53 | EKG ---
Test Reason : Blood Pressure : / mmHG Vent. Rate : 108 BPM Atrial Rate : 108 BPM P-R Int : 130 ms QRS Dur : 062 ms QT Int : 314 ms P-R-T Axes : 074 070 055 degrees QTc Int : 420 ms POOR DATA QUALITY, INTERPRETATION MAY BE ADVERSELY AFFECTED SINUS TACHYCARDIA LOW VOLTAGE QRS BORDERLINE ECG WHEN COMPARED WITH ECG OF 23-APR-2019 11:13, NO SIGNIFICANT CHANGE WAS FOUND Confirmed by ZEN GOMES, YARED ([id number]) on 04/25/2019 10:53:11 AM Referred By: Confirmed By:YARED ZALDIVAR MD
[2019-04-25] MEDS ORDERED: INSULIN (NOVOLOG) ASPART 100 UNITS/ML 10ML VIAL ONE (11:26)
[2019-04-25] MEDS ORDERED: SODIUM CHLORIDE FOR INHALATION 3 ML VIAL.NEB IH PRN (13:22)
[2019-04-25] MEDS: MAGNESIUM HYDROX 2400MG/30ML ORAL SUSPENSION 30 ML CUP GT SCH (22:51)
[2019-04-25] MEDS: LACTULOSE 20 GM/30 ML UDC (FOR ORAL USE ONLY) GT SCH (22:51)
[2019-04-25] MEDS: MONTELUKAST NA 10 MG TABLET GT SCH (22:52)
[2019-04-26] MEDS: methylPREDNISolone NA SUCC 40 MG/1 ML VIAL IVPUSH SCH ×3 (00:10→21:43)
[2019-04-26] MEDS: INSULIN SLIDING SCALE (NOVOLOG) 1 VIAL SQ SCH ×5 (00:11→23:56)
[2019-04-26] MEDS: ALBUTEROL SO4 0.083% IH SOL 2.5 MG/3 ML VIAL.NEB. NEB PRN ×2 (03:15→16:14)
[2019-04-26] MEDS ORDERED: INSULIN (NOVOLOG) ASPART 100 UNITS/ML 10ML VIAL ONE (05:47)
[2019-04-26] MEDS: MUPIROCIN 2% TOPICAL OINTMENT 22 GM TUBE TP SCH ×3 (06:17→21:42)
[2019-04-26] MEDS: PHENobarbital 20 MG/5 ML UNIT-DOSE CUP GT SCH ×2 (09:21→21:42)
[2019-04-26] MEDS: LACTULOSE 20 GM/30 ML UDC (FOR ORAL USE ONLY) GT SCH ×2 (09:21→21:42)
[2019-04-26] MEDS: BACITRACIN 15 GM TUBE TOPICAL OINTMENT TP SCH ×2 (09:21→21:42)
[2019-04-26] MEDS: CLOTRIMAZOLE 1% VAGINAL CREAM WITH APPLICATOR 45 GM TUBE VG SCH ×2 (09:23→21:42)
[2019-04-26] MEDS: HYDROCORTISONE 1% TOPICAL CREAM 30 GM TUBE TP SCH ×2 (09:23→21:42)
--- NOTE | 2019-04-26 14:40 | PN ---
Progress Note, Physician Chief Complaint: Pt nonverbal. Caregiver from [place] at bedside stated she had a peaceful night History of Present Illness: HPI 38 YOF with significant past medical history of MR, congenital scoliosis ( insertion of lugue gavin), melissa fundoplication, microcephalus, otitis media, volvulus, epilepsy, GERD, and asthma, who presents to the emergency department via EMS from [place] with shortness of breath. As per aid at bedside and [place] records, she started re-experiencing respiratory distress and wheezing, +accessory muscle use; facility administered duonebs x 2 without effect, vital signs remarkable for tachycardia 127, SpO2 94% , normotensive and low grade temperature 99. Seen yesterday here for similar sx, hypoxia down to 90% and respiratory distress/wheezing, SOB and asthma exacerbation. Her O2 saturation was noted to be 90% prompting her arrival to the ED. As per EMS, patient was given 3 nebulizer treatments and 10 mg dexamethasone en route. Treated with nebs and dexamethasone yesterday, seen in the ED and evaluated, Cxr unremarkable. Sats had improved, wheezing improved, discharged back with asthma flare. history limited 2/2 patient's baseline MR, nonverbal status - collaterals from [place] documents and health aid at bedside. - Current Medication List Current Medications: Active Medications Acetaminophen (Tylenol Oral Solution -) 650 mg GT Q6H PRN PRN Reason: FEVER Albuterol Sulfate (Ventolin 0.083% Nebulizer Soln -) 1 amp NEB RQID PRN PRN Reason: SHORT OF BREATH/WHEEZING Last Admin: 04/26/19 03:15 Dose: 1 amp Bacitracin (Bacitracin -) 1 applic TP BID [facility] Last Admin: 04/26/19 09:21 Dose: 1 applic Clotrimazole (Gyne-Lotrimin -) 1 applic VG BID [facility] Last Admin: 04/26/19 09:23 Dose: 1 applic Hydrocortisone (Hytone 1% Cream -) 1 applic TP BID [facility] Last Admin: 04/26/19 09:23 Dose: 1 applic Insulin Aspart (Novolog Vial Sliding Scale -) 1 vial SQ Q6HPO [facility]; Protocol Last Admin: 04/26/19 11:58 Dose: Not Given Lactulose (Cephulac (Oral Use)) 20 gm GT BID [facility] Last Admin: 04/26/19 09:21 Dose: 20 gm Magnesium Hydroxide (Milk Of Magnesia -) 30 ml GT DAILY@2200 [facility] Last Admin: 04/25/19 22:51 Dose: 30 ml Methylprednisolone Sodium Succinate (Solu-Medrol -) 40 mg IVPUSH BID [facility] Montelukast Sodium (Singulair -) 10 mg GT HS [facility] Last Admin: 04/25/19 22:52 Dose: 10 mg Mupirocin (Bactroban 2% Ointment -) 1 applic TP TID [facility] Last Admin: 04/26/19 06:17 Dose: 1 applic Phenobarbital (Phenobarbital Liquid -) 60 mg GT HS [facility] Last Admin: 04/25/19 22:52 Dose: 60 mg Phenobarbital (Phenobarbital Liquid -) 30 mg GT DAILY [facility] Last Admin: 04/26/19 09:21 Dose: 30 mg Sodium Chloride (Normal Saline For Inhalation -) 3 ml IH Q6H PRN PRN Reason: SHORTNESS OF BREATH - Objective Vital Signs: Vital Signs Temperature 99.2 F 04/26/19 13:33 Pulse Rate 102 H 04/26/19 13:33 Respiratory Rate 22 H 04/26/19 13:33 Blood Pressure 130/79 04/26/19 13:33 O2 Sat by Pulse Oximetry (%) 97 04/26/19 09:00 Additional Findings/Remarks: Constitutional: Yes: No Distress, Thin Eyes: Yes: WNL, Conjunctiva Clear HENT: Yes: Other (extensive keloids around neck with indurated areas). Green/ yellow secretions to both nares Cardiovascular: Yes: WNL, Regular Rate and Rhythm Respiratory: Yes: WNL, Diminished (at bases)No wheezing Gastrointestinal: Yes: WNL, Normal Bowel Sounds, Other (GT in place) ...Rectal Exam: Yes: Deferred Genitourinary: Yes: Incontinence Breast(s): Yes: WNL Musculoskeletal: Yes: Joint Stiffness Extremities: Yes: Other (contractures) Edema: No Peripheral Pulses WNL: Yes Peripheral Pulses: Left Radial: 2+, Right Radial: 2+, Left Doralis Pedis: 2+, Right Dorsalis Pedis: 2+, Left Femoral: 2+, Right Femoral: 2+ Integumentary: Yes: Other (keloids) Neurological: Yes: Other (non verbal) Psychiatric: Yes: Alert (tracks with eyes) Labs: CBC, BMP 04/24/19 10:45 04/24/19 10:45 Problem List - Problems (1) Acute respiratory failure Assessment/Plan: No hypoxia overnight assess SPO2 off O2 no wheezing will decrease steroids to twice daily and change to PO tomorrow with contuining for 5 days after c/w steroids/ nebs Code(s): J96.00 - ACUTE RESPIRATORY FAILURE, UNSP W HYPOXIA OR HYPERCAPNIA Qualifiers: Respiratory failure complication: hypoxia Qualified Code(s): J96.01 - Acute respiratory failure with hypoxia (2) Asthma exacerbation Assessment/Plan: Steroids given in ED with much improvement hypoxia reported, in ED SPO2 98% low grade temp 99.7, afbrile overnight monitor temperature curve c/w solumedrol 40mg IV q6H c/w inhaled bronchodilators restart home singular maintain O2 to keep SpO2 >90% aspiration precautions Code(s): J45.901 - UNSPECIFIED ASTHMA WITH (ACUTE) EXACERBATION Qualifiers: Asthma severity: moderate Asthma persistence: unspecified Qualified Code( s): J45.901 - Unspecified asthma with (acute) exacerbation (3) Functional quadriplegia Assessment/Plan: severe contracture to all extremities turn and reposition q2h skin care PT fall precautions Code(s): R53.2 - FUNCTIONAL QUADRIPLEGIA (4) History of keloid of skin Assessment/Plan: c/w hydrocortisone and mupirocin creams Code(s): Z87.2 - PERSONAL HISTORY OF DISEASES OF THE SKIN, SUBCU (5) Hypoxia Assessment/Plan: resolved will monitor off O2 Code(s): R09.02 - HYPOXEMIA (6) PEG (percutaneous endoscopic gastrostomy) status Assessment/Plan: tolerating Jevity Code(s): Z93.1 - GASTROSTOMY STATUS (7) Prophylactic measure Assessment/Plan: FEN additional fluids in GT c/w Jevity monitor electrolytes DVT heparin sq Dispo admit to med surg floor full code discharge planning back to [facility] when medically improved Code(s): Z29.9 - ENCOUNTER FOR PROPHYLACTIC MEASURES, UNSPECIFIED (8) On enteral nutrition Assessment/Plan: Jevity 1.5 @ 45 cc/he goal rate tolerating well Code(s): Z78.9 - OTHER SPECIFIED HEALTH STATUS (9) Seizure disorder Assessment/Plan: c/w phenobarb via GT Code(s): G40.909 - EPILEPSY, UNSP, NOT INTRACTABLE, WITHOUT STATUS EPILEPTICUS (10) Severe malnutrition Assessment/Plan: BMI 20.8 ks Alb 3.4 severely contracted muscle and temperol wasting with exposed bony prominences c/w jevity at goal rate Cfo Controller to see Code(s): E43 - UNSPECIFIED SEVERE PROTEIN-CALORIE MALNUTRITION (11) Ileus Assessment/Plan: persistent ilues pattern on AXR no significant progression from prior AXR c/w aggressive bowel regimine-having Bms Code(s): K56.7 - ILEUS, UNSPECIFIED (12) assisted resident Code(s): Z59.3 - PROBLEMS RELATED TO LIVING IN RESIDENTIAL INSTITUTION (13) Lives in long-term care facility Assessment/Plan: [place] resident Code(s): Z59.3 - PROBLEMS RELATED TO LIVING IN RESIDENTIAL INSTITUTION Visit type - Emergency Visit Emergency Visit: Yes ED Registration Date: 04/24/19 Care time: The patient presented to the Emergency Department on the above date and was hospitalized for further evaluation of their emergent condition. - New Patient This patient is new to me today: No - Critical Care Critical Care patient: No - Discharge Referral Referred to [facility] No
[2019-04-26 15:42] LABS: BASO % 0.5 % (0-2.0); EOS % 0.1 % (0-4.5); HEMATOCRIT 44.5 % (32.4-45.2); HEMOGLOBIN 14.6 GM/dL (10.7-15.3); LYMPH % 21.7 % (8-40); MCH 27.7 pg (25.7-33.7); MCHC 32.7 g/dl (32.0-36.0); MEAN CELL VOLUME 84.7 fl (80-96); MEAN PLT VOLUME 9.4 fl (7.5-11.1); MONO % 11.7 % (3.8-10.2); PLATELET COUNT 289 K/MM3 (134-434); RBC 5.25 M/mm3 (3.60-5.2); RDW 15.1 % (11.6-15.6); WHITE BLOOD COUNT 12.8 K/mm3 (4.0-10.0)
[2019-04-26 16:14] LABS: ALBUMIN 3.5 g/dl (3.4-5.0); BILIRUBIN,TOTAL 0.2 mg/dL (0.2-1); BLOOD UREA NITROGEN 16.7 mg/dL (7-18); CALCIUM 9.4 mg/dL (8.5-10.1); CREATININE 0.4 mg/dL (0.55-1.3); MAGNESIUM 2.5 mg/dL (1.8-2.4); POTASSIUM 4.3 mmol/L (3.5-5.1); TOT PROT 7.6 g/dl (6.4-8.2)
[2019-04-26] MEDS: MAGNESIUM HYDROX 2400MG/30ML ORAL SUSPENSION 30 ML CUP GT SCH (21:42)
[2019-04-26] MEDS: MONTELUKAST NA 10 MG TABLET GT SCH (21:43)
[2019-04-27] MEDS: INSULIN SLIDING SCALE (NOVOLOG) 1 VIAL SQ SCH ×3 (06:29→17:06)
[2019-04-27] MEDS: MUPIROCIN 2% TOPICAL OINTMENT 22 GM TUBE TP SCH ×3 (06:29→22:02)
[2019-04-27] MEDS: LACTULOSE 20 GM/30 ML UDC (FOR ORAL USE ONLY) GT SCH ×2 (09:23→22:01)
[2019-04-27] MEDS: methylPREDNISolone NA SUCC 40 MG/1 ML VIAL IVPUSH SCH ×2 (09:23→22:01)
[2019-04-27] MEDS: CLOTRIMAZOLE 1% VAGINAL CREAM WITH APPLICATOR 45 GM TUBE VG SCH ×2 (09:24→22:02)
[2019-04-27] MEDS: HYDROCORTISONE 1% TOPICAL CREAM 30 GM TUBE TP SCH ×2 (09:24→22:02)
[2019-04-27] MEDS: BACITRACIN 15 GM TUBE TOPICAL OINTMENT TP SCH ×2 (09:24→22:02)
[2019-04-27] MEDS: PHENobarbital 20 MG/5 ML UNIT-DOSE CUP GT SCH ×2 (09:24→22:04)
--- NOTE | 2019-04-27 10:20 | CON.PULM ---
Consult Consult Specialty:: PULM/CCM Referred by:: Hospitalist Reason for Consultation:: SOB - History of Present Illness Chief Complaint: Wheezing History of Present Illness: 38 F, MR, congenital scoliosis, Samuel fundoplication, microcephaly, otitis media, volvulus, epilepsy, GERD, and supposed asthma. Admitted via the ER due to shortness of breath. The patient is not able provide any information. Apparently she was noted by her aide to have respiratory distress and wheezing with accessory muscle use. She was given duonebs x 2 without effect. Saturation was noted to drop to 90%. 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: Seizure, Other (microcephaly, congental quadraplegia ) Pulmonary: Yes: Asthma, Pneumonia (with chest tube insertion for right hydrothorax) Dermatology: Yes: Other (keloid-right neck with recurrent infections) - Past Surgical History Past Surgical History: Yes: Appendectomy, Cholecystectomy - Alcohol/Substance Use Hx Alcohol Use: No - Smoking History Smoking history: Never smoked Have you smoked in the past 12 months: No Home Medications - Allergies Allergies/Adverse Reactions: Allergies Allergy/AdvReac Type Severity Reaction Status Date / Time No Known Allergies Allergy Verified 04/24/19 10:22 - Home Medications Home Medications: Ambulatory Orders Acetaminophen Oral Solution [Tylenol 160mg/5mL Oral Solution -] 650 mg GT Q6H PRN 08/08/18 Clotrimazole 1 applic TD BID 08/08/18 Hydrocortisone 1% Cream [Hytone 1% Cream -] 1 applic TP BID 08/08/18 Ipratropium/Albuterol Sulfate [Iprat-Albut 0.5-3(2.5) mg/3 ml] 3 ml IH QID 08/08 Magnesium Hydrox 2400MG/30Ml [Milk of Magnesia -] 30 ml GT HS 08/08/18 Montelukast Na [Singulair -] 10 mg GT HS 08/08/18 Phenobarbital 32.4 mg GT HS 08/08/18 Phenobarbital 64.8 mg GT HS 08/08/18 Lactose-Reduced Food/Fiber [Jevity 1.5 Del Liquid] 1,000 ml GT ASDIR 02/04/19 Albuterol 0.083% Nebulizer Kathleen [Ventolin 0.083% Nebulizer Soln -] 1 neb NEB Q4H PRN #30 vial 03/06/19 Ammonium Lactate Cream [Lac-Hydrin 12% Cream -] 1 applic TD BID 04/10/19 Bacitracin - [Bacitracin Topical Ointment -] 1 applic TP BID 04/10/19 Budesonide/Formeterol Fumarate [SYMBICORT 80/4.5mcg -] 2 puff IH BID 04/10/19 Mupirocin Ointment [Bactroban 2% Ointment -] 1 applic TD TID 04/10/19 predniSONE ORAL SOLUTION [Deltasone Oral Solution 5 MG/5 ML -] 10 mg GT DAILY # 1 cup 04/12/19 Review of Systems Unable to obtain ROS, reason: not able to provide Physical Exam Vital Sings: Vital Signs Temperature 98.0 F 04/27/19 09:00 Pulse Rate 96 H 04/27/19 09:00 Respiratory Rate 20 04/27/19 09:00 Blood Pressure 136/83 04/27/19 09:00 O2 Sat by Pulse Oximetry (%) 98 04/26/19 21:00 Constitutional: Yes: No Distress Eyes: Yes: Conjunctiva Clear HENT: Yes: Atraumatic. No: Drooling Neck: Yes: Supple, Other (large keloids ) Cardiovascular: Yes: Regular Rate and Rhythm Respiratory: Yes: Diminished, On Nasal O2, Wheezes. No: Accessory Muscle Use, Rales, Rhonchi, SOB, Stridor, Tachypnea ...Inspection: Yes: Surgical Scar. No: Use of Accessory Muscles ...Clubbing: No Gastrointestinal: Yes: Normal Bowel Sounds, Soft, Other (PEG) Musculoskeletal: Yes: Joint Stiffness Extremities: Yes: Shortened Edema: No Peripheral Pulses WNL: Yes Integumentary: Yes: Other (keloids ) Neurological: Yes: Pre-Existing Deficit Labs: CBC, BMP 04/26/19 14:45 04/26/19 14:45 Imaging - Results Chest X-ray: Report Reviewed, Image Reviewed Problem List - Problems (1) Acute bronchitis Code(s): J20.9 - ACUTE BRONCHITIS, UNSPECIFIED (2) Microcephaly Code(s): Q02 - MICROCEPHALY (3) Lives in long-term care facility Code(s): Z59.3 - PROBLEMS RELATED TO LIVING IN RESIDENTIAL INSTITUTION (4) Asthma exacerbation Code(s): J45.901 - UNSPECIFIED ASTHMA WITH (ACUTE) EXACERBATION Qualifiers: Asthma severity: moderate Asthma persistence: unspecified Qualified Code( s): J45.901 - Unspecified asthma with (acute) exacerbation (5) Functional quadriplegia Code(s): R53.2 - FUNCTIONAL QUADRIPLEGIA (6) PEG (percutaneous endoscopic gastrostomy) status Code(s): Z93.1 - GASTROSTOMY STATUS (7) Seizure disorder Code(s): G40.909 - EPILEPSY, UNSP, NOT INTRACTABLE, WITHOUT STATUS EPILEPTICUS Assessment/Plan Medrol BD TX standing and PRN O2 as needed Would continue to monitor off ABX Aspiration precautions VTE prophylaxis Singulair OD Will follow Thank you. Dr Noriega
--- NOTE | 2019-04-27 11:02 | PN ---
Physical Exam: SUBJECTIVE: Patient seen and examined at the bedside. non verbal at baseline. OBJECTIVE: Patient is a 38 year old female with a significant past medical history of MR, congenital scoliosis (insertion of lugue gavin), melissa fundoplication, microcephalus, otitis media, volvulus, epilepsy, GERD, and asthma, who presents to the emergency department via EMS from [place] with shortness of breath and found to have acute bronchitis. Period Temp Pulse Resp BP Sys/Holley Pulse Ox Last 24 Hr 98.0 F-99.2 F 84-105 20-23 99-136/42-83 98 GENERAL: The patient is awake, alert, non verbal HEAD: Normal with no signs of trauma. EYES: PERRL, extraocular movements intact, sclera anicteric, conjunctiva clear. No ptosis. ENT: Ears normal, nares patent, oropharynx clear without exudates, moist mucous membranes. NECK: Trachea midline, full range of motion, supple. LUNGS: mild wheezing on anterior lungs, diminished bilaterally HEART: Regular rate and rhythm ABDOMEN: Soft, nontender, nondistended, normoactive bowel sounds, no guarding, no rebound, no hepatosplenomegaly, no masses. EXTREMITIES: no edema. NEUROLOGICAL: non verbal PSYCH: Normal mood, normal affect. SKIN: Warm, dry, normal turgor, no rashes or lesions noted Laboratory Results - last 24 hr 04/26/19 04/26/19 04/26/19 11:42 14:45 14:45 WBC 12.8 H RBC 5.25 H Hgb 14.6 Hct 44.5 MCV 84.7 MCH 27.7 MCHC 32.7 RDW 15.1 Plt Count 289 MPV 9.4 Absolute Neuts (auto) 8.5 H Neutrophils % 66.0 Lymphocytes % 21.7 D Monocytes % 11.7 H Eosinophils % 0.1 D Basophils % 0.5 Nucleated RBC % 0 Sodium 142 Potassium 4.3 Chloride 111 H Carbon Dioxide 23 Anion Gap 7 L BUN 16.7 Creatinine 0.4 L Est GFR (CKD-EPI)AfAm 152.06 Est GFR (CKD-EPI)NonAf 131.20 POC Glucometer 146 Random Glucose 86 Calcium 9.4 Magnesium 2.5 H Total Bilirubin 0.2 AST 20 ALT 35 Alkaline Phosphatase 82 Total Protein 7.6 Albumin 3.5 04/26/19 04/26/1904/27/19 17:14 23:55 06:27 WBC RBC Hgb Hct MCV MCH MCHC RDW Plt Count MPV Absolute Neuts (auto) Neutrophils % Lymphocytes % Monocytes % Eosinophils % Basophils % Nucleated RBC % Sodium Potassium Chloride Carbon Dioxide Anion Gap BUN Creatinine Est GFR (CKD-EPI)AfAm Est GFR (CKD-EPI)NonAf POC Glucometer 94 101 88 Random Glucose Calcium Magnesium Total Bilirubin AST ALT Alkaline Phosphatase Total Protein Albumin Active Medications Generic Name Dose Route Start Last Admin Trade Name Freq PRN Reason Stop Dose Admin Acetaminophen 650 mg 04/24/19 13:23 Tylenol Oral Solution - GT Q6H PRN FEVER Albuterol Sulfate 1 amp 04/25/19 06:47 04/26/19 16:14 Ventolin 0.083% Nebulizer Soln - NEB 1 amp RQID PRN Administration SHORT OF BREATH/WHEEZING Bacitracin 1 applic 04/24/19 22:00 04/27/19 09:24 Bacitracin - TP 1 applic BID JAMIL Administration Clotrimazole 1 applic 04/24/19 22:00 04/27/19 09:24 Gyne-Lotrimin - VG 1 applic BID JAMIL Administration Hydrocortisone 1 applic 04/24/19 22:00 04/27/19 09:24 Hytone 1% Cream - TP 1 applic BID JAMIL Administration Insulin Aspart 1 vial 04/25/19 00:00 04/27/19 06:29 Novolog Vial Sliding Scale - SQ Not Given Q6HPO [facility] Protocol Lactulose 20 gm 04/25/19 22:00 04/27/19 09:23 Cephulac (Oral Use) GT 20 gm BID JAMIL Administration Magnesium Hydroxide 30 ml 04/24/19 22:00 04/26/19 21:42 Milk Of Magnesia - GT 30 ml DAILY@2200 JAMIL Administration Methylprednisolone Sodium Succinate 40 mg 04/26/19 22:00 04/27/19 09:23 Solu-Medrol - IVPUSH 40 mg BID JAMIL Administration Montelukast Sodium 10 mg 04/24/19 22:00 04/26/19 21:43 Singulair - GT 10 mg HS JAMIL Administration Mupirocin 1 applic 04/24/19 14:00 04/27/19 06:29 Bactroban 2% Ointment - TP 1 applic TID JAMIL Administration Phenobarbital 60 mg 04/24/19 22:00 04/26/19 21:42 Phenobarbital Liquid - GT 60 mg HS JAMIL Administration Phenobarbital 30 mg 04/25/19 10:00 04/27/19 09:24 Phenobarbital Liquid - GT 30 mg DAILY JAMIL Administration Sodium Chloride 3 ml 04/25/19 13:22 Normal Saline For Inhalation - IH Q6H PRN SHORTNESS OF BREATH ASSESSMENT/PLAN: Problem List - Problems (1) Acute respiratory failure Assessment/Plan: No hypoxia overnight assess SPO2 off O2 no wheezing c/w steroids/ nebs Code(s): J96.00 - ACUTE RESPIRATORY FAILURE, UNSP W HYPOXIA OR HYPERCAPNIA Qualifiers: Respiratory failure complication: hypoxia Qualified Code(s): J96.01 - Acute respiratory failure with hypoxia (2) Asthma exacerbation Assessment/Plan: c/w solumedrol 40mg bid c/w inhaled bronchodilators restarted home singular maintain O2 to keep SpO2 >90% aspiration precautions pulmonary following and recommendations appreciated. Code(s): J45.901 - UNSPECIFIED ASTHMA WITH (ACUTE) EXACERBATION Qualifiers: Asthma severity: moderate Asthma persistence: unspecified Qualified Code( s): J45.901 - Unspecified asthma with (acute) exacerbation (3) Functional quadriplegia Code(s): R53.2 - FUNCTIONAL QUADRIPLEGIA (4) PEG (percutaneous endoscopic gastrostomy) status Code(s): Z93.1 - GASTROSTOMY STATUS (5) Seizure disorder Assessment/Plan: on phenobarbital Code(s): G40.909 - EPILEPSY, UNSP, NOT INTRACTABLE, WITHOUT STATUS EPILEPTICUS (6) Prophylactic measure Assessment/Plan: protonix heparin full code Code(s): Z29.9 - ENCOUNTER FOR PROPHYLACTIC MEASURES, UNSPECIFIED Visit type - Emergency Visit Emergency Visit: Yes ED Registration Date: 04/24/19 Care time: The patient presented to the Emergency Department on the above date and was hospitalized for further evaluation of their emergent condition. - New Patient This patient is new to me today: Yes Date on this admission: 04/28/19 - Critical Care Critical Care patient: No - Discharge Referral Referred to [facility] Med P.C.: No
[2019-04-27] MEDS ORDERED: PANTOPRAZOLE SOD 40 MG SUSPENSION PACKET NGT SCH (11:15)
[2019-04-27] MEDS: ALBUTEROL SO4 0.083% IH SOL 2.5 MG/3 ML VIAL.NEB. NEB SCH ×3 (12:00→20:40)
[2019-04-27] MEDS ORDERED: PT OWN MED DRAWER 7, Y5N ONE ×2 (13:38→21:59)
[2019-04-27] MEDS: FAMOTIDINE 40 MG/5 ML ORAL SUSPENSION NGT SCH ×2 (13:40→22:02)
[2019-04-27] MEDS: MONTELUKAST NA 10 MG TABLET GT SCH (22:02)
[2019-04-27] MEDS: HEPARIN NA (PORCINE) 5,000 UNITS/ML 1ML VIAL SQ SCH (22:03)
[2019-04-27] MEDS: MAGNESIUM HYDROX 2400MG/30ML ORAL SUSPENSION 30 ML CUP GT SCH (22:04)
[2019-04-28] MEDS: INSULIN SLIDING SCALE (NOVOLOG) 1 VIAL SQ SCH ×4 (00:08→17:24)
[2019-04-28] MEDS: MUPIROCIN 2% TOPICAL OINTMENT 22 GM TUBE TP SCH ×3 (06:12→22:24)
[2019-04-28] MEDS: ALBUTEROL SO4 0.083% IH SOL 2.5 MG/3 ML VIAL.NEB. NEB SCH ×4 (08:00→21:00)
[2019-04-28] MEDS: LACTULOSE 20 GM/30 ML UDC (FOR ORAL USE ONLY) GT SCH ×2 (09:42→22:22)
[2019-04-28] MEDS: HEPARIN NA (PORCINE) 5,000 UNITS/ML 1ML VIAL SQ SCH ×2 (09:42→22:23)
[2019-04-28] MEDS: methylPREDNISolone NA SUCC 40 MG/1 ML VIAL IVPUSH SCH ×2 (09:43→22:23)
[2019-04-28] MEDS: BACITRACIN 15 GM TUBE TOPICAL OINTMENT TP SCH ×2 (09:43→22:24)
[2019-04-28] MEDS: FAMOTIDINE 40 MG/5 ML ORAL SUSPENSION NGT SCH ×2 (09:43→22:23)
[2019-04-28] MEDS: PHENobarbital 20 MG/5 ML UNIT-DOSE CUP GT SCH ×2 (09:43→22:24)
[2019-04-28] MEDS: HYDROCORTISONE 1% TOPICAL CREAM 30 GM TUBE TP SCH ×2 (09:44→22:23)
[2019-04-28] MEDS: CLOTRIMAZOLE 1% VAGINAL CREAM WITH APPLICATOR 45 GM TUBE VG SCH ×2 (09:44→22:24)
--- NOTE | 2019-04-28 15:22 | PN ---
Progress Note, Physician History of Present Illness: pulmonary awake,non-verbal,less congested,-resp distress - Current Medication List Current Medications: Active Medications Acetaminophen (Tylenol Oral Solution -) 650 mg GT Q6H PRN PRN Reason: FEVER Albuterol Sulfate (Ventolin 0.083% Nebulizer Soln -) 1 amp NEB RQID [facility] Last Admin: 04/28/19 12:00 Dose: 1 amp Bacitracin (Bacitracin -) 1 applic TP BID [facility] Last Admin: 04/28/19 09:43 Dose: 1 applic Clotrimazole (Gyne-Lotrimin -) 1 applic VG BID [facility] Last Admin: 04/28/19 09:44 Dose: 1 applic Famotidine (Famotidine) 20 mg NGT BID [facility] Last Admin: 04/28/19 09:43 Dose: 20 mg Heparin Sodium (Porcine) (Heparin -) 5,000 unit SQ BID [facility] Last Admin: 04/28/19 09:42 Dose: 5,000 unit Hydrocortisone (Hytone 1% Cream -) 1 applic TP BID [facility] Last Admin: 04/28/19 09:44 Dose: 1 applic Insulin Aspart (Novolog Vial Sliding Scale -) 1 vial SQ Q6HPO [facility]; Protocol Last Admin: 04/28/19 11:44 Dose: Not Given Lactulose (Cephulac (Oral Use)) 20 gm GT BID [facility] Last Admin: 04/28/19 09:42 Dose: 20 gm Magnesium Hydroxide (Milk Of Magnesia -) 30 ml GT DAILY@2200 [facility] Last Admin: 04/27/19 22:04 Dose: 30 ml Methylprednisolone Sodium Succinate (Solu-Medrol -) 40 mg IVPUSH BID [facility] Last Admin: 04/28/19 09:43 Dose: 40 mg Montelukast Sodium (Singulair -) 10 mg GT HS [facility] Last Admin: 04/27/19 22:02 Dose: 10 mg Mupirocin (Bactroban 2% Ointment -) 1 applic TP TID [facility] Last Admin: 04/28/19 14:45 Dose: 1 applic Phenobarbital (Phenobarbital Liquid -) 60 mg GT HS [facility] Last Admin: 04/27/19 22:04 Dose: 60 mg Phenobarbital (Phenobarbital Liquid -) 30 mg GT DAILY [facility] Last Admin: 04/28/19 09:43 Dose: 30 mg Sodium Chloride (Normal Saline For Inhalation -) 3 ml IH Q6H PRN PRN Reason: SHORTNESS OF BREATH - Objective Vital Signs: Vital Signs Temperature 99.3 F 04/28/19 14:00 Pulse Rate 91 H 04/28/19 14:00 Respiratory Rate 20 04/28/19 14:00 Blood Pressure 135/89 04/28/19 14:00 O2 Sat by Pulse Oximetry (%) 98 04/28/19 09:00 Constitutional: Yes: Calm, Thin Eyes: Yes: WNL HENT: Yes: WNL Neck: Yes: WNL Cardiovascular: Yes: Regular Rate and Rhythm, S1, S2 Respiratory: Yes: Rhonchi, Wheezes (scattered rhonchi and wheeezes) Gastrointestinal: Yes: Normal Bowel Sounds, Soft Extremities: Yes: Other (contracted) Edema: No Labs: CBC, BMP 04/26/19 14:45 04/26/19 14:45 Assessment/Plan Problem List - Problems (1) Acute bronchitis Code(s): J20.9 - ACUTE BRONCHITIS, UNSPECIFIED (2) Microcephaly Code(s): Q02 - MICROCEPHALY (3) Lives in long-term care facility Code(s): Z59.3 - PROBLEMS RELATED TO LIVING IN RESIDENTIAL INSTITUTION (4) Asthma exacerbation Code(s): J45.901 - UNSPECIFIED ASTHMA WITH (ACUTE) EXACERBATION Qualifiers: Asthma severity: moderate Asthma persistence: unspecified Qualified Code( s): J45.901 - Unspecified asthma with (acute) exacerbation (5) Functional quadriplegia Code(s): R53.2 - FUNCTIONAL QUADRIPLEGIA (6) PEG (percutaneous endoscopic gastrostomy) status Code(s): Z93.1 - GASTROSTOMY STATUS (7) Seizure disorder Code(s): G40.909 - EPILEPSY, UNSP, NOT INTRACTABLE, WITHOUT STATUS EPILEPTICUS Assessment/Plan Medrol BD TX standing and PRN O2 as needed Would continue to monitor off ABX Aspiration precautions VTE prophylaxis Singulayaakov ALVARADO
--- NOTE | 2019-04-28 18:31 | PN ---
Physical Exam: SUBJECTIVE: Patient seen and examined. non verbal at baseline. tolerating room air. OBJECTIVE: Patient is a 38 year old female with a significant past medical history of MR, congenital scoliosis (insertion of lugue gavin), melissa fundoplication, microcephalus, otitis media, volvulus, epilepsy, GERD, and asthma, who presents to the emergency department via EMS from [place] with shortness of breath and found to have acute bronchitis. Vital Signs Period Temp Pulse Resp BP Sys/Holley Pulse Ox Last 24 Hr 97.2 F-99.3 F 73-105 20-20 108-157/71-89 98-98 GENERAL: The patient is awake, alert, non verbal HEAD: Normal with no signs of trauma. EYES: PERRL, extraocular movements intact, sclera anicteric, conjunctiva clear. No ptosis. ENT: Ears normal, nares patent, oropharynx clear without exudates, moist mucous membranes. NECK: Trachea midline, full range of motion, supple. large keloid that extends on right neck LUNGS: diminished on anterior lungs, diminished bilaterally - tolerating room air HEART: Regular rate and rhythm ABDOMEN: Soft, nontender, nondistended, normoactive bowel sounds, no guarding, no rebound, no hepatosplenomegaly, no masses. EXTREMITIES: no edema. NEUROLOGICAL: non verbal PSYCH: Normal mood, normal affect. SKIN: Warm, dry, normal turgor, no rashes or lesions noted Laboratory Results - last 24 hr 04/27/19 04/28/19 04/28/19 21:13 11:40 16:30 POC Glucometer 110 119 128 Active Medications Generic Name Dose Route Start Last Admin Trade Name Freq PRN Reason Stop Dose Admin Acetaminophen 650 mg 04/24/19 13:23 Tylenol Oral Solution - GT Q6H PRN FEVER Albuterol Sulfate 1 amp 04/27/19 12:00 04/28/19 16:00 Ventolin 0.083% Nebulizer Soln - NEB 1 amp RQID JAMIL Administration Bacitracin 1 applic 04/24/19 22:00 04/28/19 09:43 Bacitracin - TP 1 applic BID JAMIL Administration Clotrimazole 1 applic 04/24/19 22:00 04/28/19 09:44 Gyne-Lotrimin - VG 1 applic BID JAMIL Administration Famotidine 20 mg 04/27/19 13:00 04/28/19 09:43 Famotidine NGT 20 mg BID JAMIL Administration Heparin Sodium (Porcine) 5,000 unit 04/27/19 22:00 04/28/19 09:42 Heparin - SQ 5,000 unit BID JAMIL Administration Hydrocortisone 1 applic 04/24/19 22:00 04/28/19 09:44 Hytone 1% Cream - TP 1 applic BID JAMIL Administration Insulin Aspart 1 vial 04/25/19 00:00 04/28/19 17:24 Novolog Vial Sliding Scale - SQ Not Given Q6HPO [facility] Protocol Lactulose 20 gm 04/25/19 22:00 04/28/19 09:42 Cephulac (Oral Use) GT 20 gm BID JAMIL Administration Magnesium Hydroxide 30 ml 04/24/19 22:00 04/27/19 22:04 Milk Of Magnesia - GT 30 ml DAILY@2200 JAMIL Administration Methylprednisolone Sodium Succinate 40 mg 04/26/19 22:00 04/28/19 09:43 Solu-Medrol - IVPUSH 40 mg BID JAMIL Administration Montelukast Sodium 10 mg 04/24/19 22:00 04/27/19 22:02 Singulair - GT 10 mg HS JAMIL Administration Mupirocin 1 applic 04/24/19 14:00 04/28/19 14:45 Bactroban 2% Ointment - TP 1 applic TID JAMIL Administration Phenobarbital 60 mg 04/24/19 22:00 04/27/19 22:04 Phenobarbital Liquid - GT 60 mg HS JAMIL Administration Phenobarbital 30 mg 04/25/19 10:00 04/28/19 09:43 Phenobarbital Liquid - GT 30 mg DAILY JAMIL Administration Sodium Chloride 3 ml 04/25/19 13:22 Normal Saline For Inhalation - IH Q6H PRN SHORTNESS OF BREATH ASSESSMENT/PLAN: Problem List - Problems (1) Acute respiratory failure Assessment/Plan: No hypoxia overnight assess SPO2 off O2 no wheezing c/w steroids/ nebs Code(s): J96.00 - ACUTE RESPIRATORY FAILURE, UNSP W HYPOXIA OR HYPERCAPNIA Qualifiers: Respiratory failure complication: hypoxia Qualified Code(s): J96.01 - Acute respiratory failure with hypoxia (2) Asthma exacerbation Assessment/Plan: c/w solumedrol 40mg bid c/w inhaled bronchodilators restarted home singular maintain O2 to keep SpO2 >90% aspiration precautions pulmonary following and recommendations appreciated. Code(s): J45.901 - UNSPECIFIED ASTHMA WITH (ACUTE) EXACERBATION Qualifiers: Asthma severity: moderate Asthma persistence: unspecified Qualified Code( s): J45.901 - Unspecified asthma with (acute) exacerbation (3) Functional quadriplegia Code(s): R53.2 - FUNCTIONAL QUADRIPLEGIA (4) PEG (percutaneous endoscopic gastrostomy) status Code(s): Z93.1 - GASTROSTOMY STATUS (5) Seizure disorder Assessment/Plan: on phenobarbital Code(s): G40.909 - EPILEPSY, UNSP, NOT INTRACTABLE, WITHOUT STATUS EPILEPTICUS (6) Prophylactic measure Assessment/Plan: protonix heparin full code Code(s): Z29.9 - ENCOUNTER FOR PROPHYLACTIC MEASURES, UNSPECIFIED Visit type - Emergency Visit Emergency Visit: Yes ED Registration Date: 04/24/19 Care time: The patient presented to the Emergency Department on the above date and was hospitalized for further evaluation of their emergent condition. - New Patient This patient is new to me today: No - Critical Care Critical Care patient: No - Discharge Referral Referred to [facility] Med P.C.: No
[2019-04-28] MEDS: MAGNESIUM HYDROX 2400MG/30ML ORAL SUSPENSION 30 ML CUP GT SCH (22:22)
[2019-04-28] MEDS: MONTELUKAST NA 10 MG TABLET GT SCH (22:23)
[2019-04-29] MEDS: INSULIN SLIDING SCALE (NOVOLOG) 1 VIAL SQ SCH ×5 (00:12→23:50)
[2019-04-29] MEDS: MUPIROCIN 2% TOPICAL OINTMENT 22 GM TUBE TP SCH ×3 (06:48→21:58)
[2019-04-29] MEDS: ALBUTEROL SO4 0.083% IH SOL 2.5 MG/3 ML VIAL.NEB. NEB SCH ×4 (08:00→20:41)
[2019-04-29] MEDS ORDERED: predniSONE 20 MG TABLET (UD) PO ONE ×2 (08:15→12:30)
[2019-04-29] MEDS ORDERED: PT OWN MED DRAWER 7, Y5N ONE ×2 (08:50→21:40)
[2019-04-29] MEDS: LACTULOSE 20 GM/30 ML UDC (FOR ORAL USE ONLY) GT SCH ×2 (08:59→21:56)
[2019-04-29] MEDS: PHENobarbital 20 MG/5 ML UNIT-DOSE CUP GT SCH ×2 (09:02→21:58)
[2019-04-29] MEDS: BACITRACIN 15 GM TUBE TOPICAL OINTMENT TP SCH ×2 (09:02→21:59)
[2019-04-29] MEDS: HYDROCORTISONE 1% TOPICAL CREAM 30 GM TUBE TP SCH ×2 (09:03→22:09)
[2019-04-29] MEDS: CLOTRIMAZOLE 1% VAGINAL CREAM WITH APPLICATOR 45 GM TUBE VG SCH ×3 (09:03→22:09)
[2019-04-29] MEDS: FAMOTIDINE 40 MG/5 ML ORAL SUSPENSION NGT SCH ×2 (09:03→21:57)
[2019-04-29] MEDS: HEPARIN NA (PORCINE) 5,000 UNITS/ML 1ML VIAL SQ SCH ×2 (09:03→21:57)
[2019-04-29 09:19] LABS: BASO % 0.4 % (0-2.0); EOS % 3.7 % (0-4.5); HEMATOCRIT 46.2 % (32.4-45.2); HEMOGLOBIN 15.1 GM/dL (10.7-15.3); LYMPH % 18.3 % (8-40); MCH 27.8 pg (25.7-33.7); MCHC 32.6 g/dl (32.0-36.0); MEAN CELL VOLUME 85.2 fl (80-96); MEAN PLT VOLUME 9.1 fl (7.5-11.1); MONO % 6.8 % (3.8-10.2); NEUT % 70.8 % (42.8-82.8); PLATELET COUNT 261 K/MM3 (134-434); RBC 5.42 M/mm3 (3.60-5.2); RDW 14.7 % (11.6-15.6)
[2019-04-29 10:13] LABS: ALBUMIN 3.5 g/dl (3.4-5.0); BILIRUBIN,TOTAL 0.3 mg/dL (0.2-1); BLOOD UREA NITROGEN 17.9 mg/dL (7-18); CALCIUM 9.4 mg/dL (8.5-10.1); CREATININE 0.4 mg/dL (0.55-1.3); POTASSIUM 4.6 mmol/L (3.5-5.1); TOT PROT 7.7 g/dl (6.4-8.2)
[2019-04-29] MEDS: methylPREDNISolone NA SUCC 40 MG/1 ML VIAL IVPUSH SCH (11:05)
--- NOTE | 2019-04-29 12:13 | PN ---
Physical Exam: SUBJECTIVE: Patient seen and examined OBJECTIVE: lost iv access, spoke to dr. hicks and ok to give prednisone 60 x 1 dose. will monitor respt status and likely d/c tomorrow to [place] if continues to do well Patient is a 39 year old female with a significant past medical history of MR, congenital scoliosis (insertion of lugue gavin), melissa fundoplication, microcephalus, otitis media, volvulus, epilepsy, GERD, and asthma, who presents to the emergency department via EMS from [place] with shortness of breath and found to have acute bronchitis. Vital Signs Period Temp Pulse Resp BP Sys/Holley Pulse Ox Last 24 Hr 97.6 F-99.3 F 91-104 16-20 114-147/53-89 98-98 GENERAL: The patient is awake, alert, non verbal HEAD: Normal with no signs of trauma. EYES: PERRL, extraocular movements intact, sclera anicteric, conjunctiva clear. No ptosis. ENT: Ears normal, nares patent, oropharynx clear without exudates, moist mucous membranes. NECK: Trachea midline, full range of motion, supple. large keloid that extends on right neck LUNGS: diminished on anterior lungs, diminished bilaterally - tolerating room air HEART: Regular rate and rhythm ABDOMEN: Soft, nontender, nondistended, normoactive bowel sounds, no guarding, no rebound, no hepatosplenomegaly, no masses. EXTREMITIES: no edema. NEUROLOGICAL: non verbal PSYCH: Normal mood, normal affect. SKIN: Warm, dry, normal turgor, no rashes or lesions noted Laboratory Results - last 24 hr 04/28/19 04/28/19 04/29/19 16:30 20:58 05:59 WBC RBC Hgb Hct MCV MCH MCHC RDW Plt Count MPV Absolute Neuts (auto) Neutrophils % Lymphocytes % Monocytes % Eosinophils % Basophils % Nucleated RBC % Sodium Potassium Chloride Carbon Dioxide Anion Gap BUN Creatinine Est GFR (CKD-EPI)AfAm Est GFR (CKD-EPI)NonAf POC Glucometer 128 93 149 Random Glucose Calcium Total Bilirubin AST ALT Alkaline Phosphatase Total Protein Albumin 04/29/19 04/29/19 04/29/19 08:50 08:50 11:11 WBC 12.0 H RBC 5.42 H Hgb 15.1 Hct 46.2 H MCV 85.2 MCH 27.8 MCHC 32.6 RDW 14.7 Plt Count 261 MPV 9.1 Absolute Neuts (auto) 8.5 H Neutrophils % 70.8 Lymphocytes % 18.3 Monocytes % 6.8 Eosinophils % 3.7 D Basophils % 0.4 Nucleated RBC % 0 Sodium 140 Potassium 4.6 Chloride 108 H Carbon Dioxide 24 Anion Gap 7 L BUN 17.9 Creatinine 0.4 L Est GFR (CKD-EPI)AfAm 152.06 Est GFR (CKD-EPI)NonAf 131.20 POC Glucometer 102 Random Glucose 94 Calcium 9.4 Total Bilirubin 0.3 AST 130 H ALT 83 H Alkaline Phosphatase 90 Total Protein 7.7 Albumin 3.5 Active Medications Generic Name Dose Route Start Last Admin Trade Name Freq PRN Reason Stop Dose Admin Acetaminophen 650 mg 04/24/19 13:23 Tylenol Oral Solution - GT Q6H PRN FEVER Albuterol Sulfate 1 amp 04/27/19 12:00 04/29/19 08:00 Ventolin 0.083% Nebulizer Soln - NEB Not Given RQID JAMIL Bacitracin 1 applic 04/24/19 22:00 04/29/19 09:02 Bacitracin - TP 1 applic BID JAMIL Administration Clotrimazole 1 applic 04/24/19 22:00 04/28/19 22:24 Gyne-Lotrimin - VG 1 applic BID JAMIL Administration Famotidine 20 mg 04/27/19 13:00 04/29/19 09:03 Famotidine NGT 20 mg BID JAMIL Administration Heparin Sodium (Porcine) 5,000 unit 04/27/19 22:00 04/29/19 09:03 Heparin - SQ 5,000 unit BID JAMIL Administration Hydrocortisone 1 applic 04/24/19 22:00 04/29/19 09:03 Hytone 1% Cream - TP 1 applic BID JAMIL Administration Insulin Aspart 1 vial 04/25/19 00:00 04/29/19 11:23 Novolog Vial Sliding Scale - SQ Not Given Q6HPO [facility] Protocol Lactulose 20 gm 04/25/19 22:00 04/29/19 08:59 Cephulac (Oral Use) GT 20 gm BID JAMIL Administration Magnesium Hydroxide 30 ml 04/24/19 22:00 04/28/19 22:22 Milk Of Magnesia - GT 30 ml DAILY@2200 JAMIL Administration Montelukast Sodium 10 mg 04/24/19 22:00 11/13/19 22:23 Singulair - GT 10 mg HS JAMIL Administration Mupirocin 1 applic 04/24/19 14:00 04/29/19 06:48 Bactroban 2% Ointment - TP 1 applic TID JAMIL Administration Phenobarbital 60 mg 04/24/19 22:00 04/28/19 22:24 Phenobarbital Liquid - GT 60 mg HS JAMIL Administration Phenobarbital 30 mg 04/25/19 10:00 04/29/19 09:02 Phenobarbital Liquid - GT 30 mg DAILY JAMIL Administration Prednisone 20 mg 04/29/19 12:11 Deltasone - PO 04/29/19 12:12 ONCE ONE Sodium Chloride 3 ml 04/25/19 13:22 Normal Saline For Inhalation - IH Q6H PRN SHORTNESS OF BREATH ASSESSMENT/PLAN: Problem List - Problems (1) Acute respiratory failure Assessment/Plan: No hypoxia overnight assess SPO2 off O2, but will need pre and post prior to d/c no wheezing c/w steroids/ nebs lost iv access, will transition to oral prednisone, discussed with pulmonary Code(s): J96.00 - ACUTE RESPIRATORY FAILURE, UNSP W HYPOXIA OR HYPERCAPNIA Qualifiers: Respiratory failure complication: hypoxia Qualified Code(s): J96.01 - Acute respiratory failure with hypoxia (2) Asthma exacerbation Assessment/Plan: given prednisone 60mg x 1 today and will taper down restarted home singular maintain O2 to keep SpO2 >90% aspiration precautions pulmonary following and recommendations appreciated. Code(s): J45.901 - UNSPECIFIED ASTHMA WITH (ACUTE) EXACERBATION Qualifiers: Asthma severity: moderate Asthma persistence: unspecified Qualified Code( s): J45.901 - Unspecified asthma with (acute) exacerbation (3) Functional quadriplegia Code(s): R53.2 - FUNCTIONAL QUADRIPLEGIA (4) PEG (percutaneous endoscopic gastrostomy) status Code(s): Z93.1 - GASTROSTOMY STATUS (5) Seizure disorder Assessment/Plan: on phenobarbital Code(s): G40.909 - EPILEPSY, UNSP, NOT INTRACTABLE, WITHOUT STATUS EPILEPTICUS (6) Prophylactic measure Assessment/Plan: protonix heparin full code Code(s): Z29.9 - ENCOUNTER FOR PROPHYLACTIC MEASURES, UNSPECIFIED Visit type - Emergency Visit Emergency Visit: Yes ED Registration Date: 04/24/19 Care time: The patient presented to the Emergency Department on the above date and was hospitalized for further evaluation of their emergent condition. - New Patient This patient is new to me today: No - Critical Care Critical Care patient: No - Discharge Referral Referred to [facility] No
--- NOTE | 2019-04-29 14:52 | PN ---
Progress Note (short form) - Note Progress Note: PULMONARY Pt nonverbal. No fevers recorded. Vital Signs Period Temp Pulse Resp BP Sys/Holley Pulse Ox Last 24 Hr 97.6 F-98.6 F 96-104 16-20 114-147/53-87 98-98 Gen: breathing nonlabored Heart: RRR Lung: scattered rhonchi Abd: soft, nontender Ext: no edema CBC, BMP 04/29/19 08:50 04/29/19 08:50 Active Medications Acetaminophen (Tylenol Oral Solution -) 650 mg GT Q6H PRN PRN Reason: FEVER Albuterol Sulfate (Ventolin 0.083% Nebulizer Soln -) 1 amp NEB RQID [facility] Last Admin: 04/29/19 12:00 Dose: 1 amp Bacitracin (Bacitracin -) 1 applic TP BID [facility] Last Admin: 04/29/19 09:02 Dose: 1 applic Clotrimazole (Gyne-Lotrimin -) 1 applic VG BID [facility] Last Admin: 04/29/19 12:53 Dose: 1 applic Famotidine (Famotidine) 20 mg NGT BID [facility] Last Admin: 04/29/19 09:03 Dose: 20 mg Heparin Sodium (Porcine) (Heparin -) 5,000 unit SQ BID [facility] Last Admin: 04/29/19 09:03 Dose: 5,000 unit Hydrocortisone (Hytone 1% Cream -) 1 applic TP BID [facility] Last Admin: 04/29/19 09:03 Dose: 1 applic Insulin Aspart (Novolog Vial Sliding Scale -) 1 vial SQ Q6HPO [facility]; Protocol Last Admin: 04/29/19 11:23 Dose: Not Given Lactulose (Cephulac (Oral Use)) 20 gm GT BID [facility] Last Admin: 04/29/19 08:59 Dose: 20 gm Magnesium Hydroxide (Milk Of Magnesia -) 30 ml GT DAILY@2200 [facility] Last Admin: 04/28/19 22:22 Dose: 30 ml Montelukast Sodium (Singulair -) 10 mg GT HS [facility] Last Admin: 04/28/19 22:23 Dose: 10 mg Mupirocin (Bactroban 2% Ointment -) 1 applic TP TID [facility] Last Admin: 04/29/19 13:25 Dose: 1 applic Phenobarbital (Phenobarbital Liquid -) 60 mg GT HS [facility] Last Admin: 04/28/19 22:24 Dose: 60 mg Phenobarbital (Phenobarbital Liquid -) 30 mg GT DAILY [facility] Last Admin: 04/29/19 09:02 Dose: 30 mg Sodium Chloride (Normal Saline For Inhalation -) 3 ml IH Q6H PRN PRN Reason: SHORTNESS OF BREATH A/P Acute Asthma Exacerbation Mental Retardation Functional Quadriplegia Seizure Disorder - inhaled bronchodilators - O2 to keep SpO2 >90% - aspiration precautions - DVT prophylaxis
[2019-04-29] MEDS: MAGNESIUM HYDROX 2400MG/30ML ORAL SUSPENSION 30 ML CUP GT SCH (21:56)
[2019-04-29] MEDS: MONTELUKAST NA 10 MG TABLET GT SCH (21:57)
[2019-04-30] MEDS: MUPIROCIN 2% TOPICAL OINTMENT 22 GM TUBE TP SCH ×2 (06:21→14:16)
[2019-04-30] MEDS: INSULIN SLIDING SCALE (NOVOLOG) 1 VIAL SQ SCH ×3 (06:22→17:59)
[2019-04-30] MEDS: ALBUTEROL SO4 0.083% IH SOL 2.5 MG/3 ML VIAL.NEB. NEB SCH ×3 (08:41→15:54)
[2019-04-30] MEDS: LACTULOSE 20 GM/30 ML UDC (FOR ORAL USE ONLY) GT SCH (09:15)
[2019-04-30] MEDS: BACITRACIN 15 GM TUBE TOPICAL OINTMENT TP SCH (09:15)
[2019-04-30] MEDS: HEPARIN NA (PORCINE) 5,000 UNITS/ML 1ML VIAL SQ SCH (09:15)
[2019-04-30] MEDS: PHENobarbital 20 MG/5 ML UNIT-DOSE CUP GT SCH (09:16)
[2019-04-30] MEDS: CLOTRIMAZOLE 1% VAGINAL CREAM WITH APPLICATOR 45 GM TUBE VG SCH (09:16)
[2019-04-30] MEDS: FAMOTIDINE 40 MG/5 ML ORAL SUSPENSION NGT SCH (09:16)
[2019-04-30] MEDS: HYDROCORTISONE 1% TOPICAL CREAM 30 GM TUBE TP SCH (09:16)
[2019-04-30 09:53] VITALS: BP 117/79; PULSE 102; TEMP 97.2
[2019-04-30] MEDS ORDERED: predniSONE 20 MG TABLET (UD) PO SCH (10:00)
[2019-04-30 13:16] LABS: BASO % 0.1 % (0-2.0); HEMATOCRIT 45.7 % (32.4-45.2); HEMOGLOBIN 14.7 GM/dL (10.7-15.3); LYMPH % 3.4 % (8-40); MCH 27.6 pg (25.7-33.7); MCHC 32.1 g/dl (32.0-36.0); MEAN CELL VOLUME 85.8 fl (80-96); MEAN PLT VOLUME 9.2 fl (7.5-11.1); MONO % 0.9 % (3.8-10.2); NEUT % 95.6 % (42.8-82.8); PLATELET COUNT 250 K/MM3 (134-434); RBC 5.33 M/mm3 (3.60-5.2); RDW 15.1 % (11.6-15.6); WHITE BLOOD COUNT 12.4 K/mm3 (4.0-10.0)
[2019-04-30 13:43] LABS: ALBUMIN 3.5 g/dl (3.4-5.0); BILIRUBIN,TOTAL 0.2 mg/dL (0.2-1); BLOOD UREA NITROGEN 19.7 mg/dL (7-18); CALCIUM 9.4 mg/dL (8.5-10.1); CREATININE 0.4 mg/dL (0.55-1.3); POTASSIUM 4.3 mmol/L (3.5-5.1); TOT PROT 7.6 g/dl (6.4-8.2)
[2019-04-30 14:03] LABS: ANISOCYTOSIS 1+; MACROCYTOSIS 0; PLATELET ESTIMATE NORMAL
--- NOTE | 2019-04-30 14:20 | PN ---
Progress Note, Physician History of Present Illness: PULMONARY ALERT,NON-VERBAL,COMFORTABLE,-RESP DISTRESS - Current Medication List Current Medications: Active Medications Acetaminophen (Tylenol Oral Solution -) 650 mg GT Q6H PRN PRN Reason: FEVER Albuterol Sulfate (Ventolin 0.083% Nebulizer Soln -) 1 amp NEB RQID [facility] Last Admin: 04/30/19 11:35 Dose: 1 amp Bacitracin (Bacitracin -) 1 applic TP BID [facility] Last Admin: 04/30/19 09:15 Dose: 1 applic Clotrimazole (Gyne-Lotrimin -) 1 applic VG BID [facility] Last Admin: 04/30/19 09:16 Dose: 1 applic Famotidine (Famotidine) 20 mg NGT BID [facility] Last Admin: 04/30/19 09:16 Dose: 20 mg Heparin Sodium (Porcine) (Heparin -) 5,000 unit SQ BID [facility] Last Admin: 04/30/19 09:15 Dose: 5,000 unit Hydrocortisone (Hytone 1% Cream -) 1 applic TP BID [facility] Last Admin: 04/30/19 09:16 Dose: 1 applic Insulin Aspart (Novolog Vial Sliding Scale -) 1 vial SQ Q6HPO [facility]; Protocol Last Admin: 04/30/19 12:03 Dose: Not Given Lactulose (Cephulac (Oral Use)) 20 gm GT BID [facility] Last Admin: 04/30/19 09:15 Dose: 20 gm Magnesium Hydroxide (Milk Of Magnesia -) 30 ml GT DAILY@2200 [facility] Last Admin: 04/29/19 21:56 Dose: 30 ml Montelukast Sodium (Singulair -) 10 mg GT HS [facility] Last Admin: 04/29/19 21:57 Dose: 10 mg Mupirocin (Bactroban 2% Ointment -) 1 applic TP TID [facility] Last Admin: 04/30/19 06:21 Dose: 1 applic Phenobarbital (Phenobarbital Liquid -) 60 mg GT HS [facility] Last Admin: 04/29/19 21:58 Dose: 60 mg Phenobarbital (Phenobarbital Liquid -) 30 mg GT DAILY [facility] Last Admin: 04/30/19 09:16 Dose: 30 mg Prednisone (Deltasone -) 40 mg PO DAILY [facility] Last Admin: 04/30/19 09:15 Dose: 40 mg Sodium Chloride (Normal Saline For Inhalation -) 3 ml IH Q6H PRN PRN Reason: SHORTNESS OF BREATH - Objective Vital Signs: Vital Signs Temperature 97.2 F L 04/30/19 09:50 Pulse Rate 102 H 04/30/19 09:50 Respiratory Rate 20 04/30/19 09:50 Blood Pressure 117/79 04/30/19 09:50 O2 Sat by Pulse Oximetry (%) 96 04/30/19 09:00 Constitutional: Yes: Calm, Thin Eyes: Yes: WNL HENT: Yes: WNL Neck: Yes: WNL Cardiovascular: Yes: Regular Rate and Rhythm, S1, S2 Respiratory: Yes: Diminished Gastrointestinal: Yes: Normal Bowel Sounds, Soft Extremities: Yes: Other (CONTRACTED) Edema: No Labs: CBC, BMP 04/30/19 13:03 04/30/19 13:03 Assessment/Plan Problem List - Problems (1) Acute bronchitis Code(s): J20.9 - ACUTE BRONCHITIS, UNSPECIFIED (2) Microcephaly Code(s): Q02 - MICROCEPHALY (3) Lives in long-term care facility Code(s): Z59.3 - PROBLEMS RELATED TO LIVING IN RESIDENTIAL INSTITUTION (4) Asthma exacerbation Code(s): J45.901 - UNSPECIFIED ASTHMA WITH (ACUTE) EXACERBATION Qualifiers: Asthma severity: moderate Asthma persistence: unspecified Qualified Code( s): J45.901 - Unspecified asthma with (acute) exacerbation (5) Functional quadriplegia Code(s): R53.2 - FUNCTIONAL QUADRIPLEGIA (6) PEG (percutaneous endoscopic gastrostomy) status Code(s): Z93.1 - GASTROSTOMY STATUS (7) Seizure disorder Code(s): G40.909 - EPILEPSY, UNSP, NOT INTRACTABLE, WITHOUT STATUS EPILEPTICUS Assessment/Plan Prednisone BD TX standing and PRN O2 as needed Would continue to monitor off ABX Aspiration precautions VTE prophylaxis Singulair OD clinically stable DR ALVARADO
--- NOTE | 2019-04-30 14:27 | DS ---
Physical Exam: SUBJECTIVE: Patient seen and examined at the bedside. tolerating room air, does not qualify for home oxygen. mentation at baseline. tracks provider in the room. OBJECTIVE: Patient is a 39 year old female with a significant past medical history of MR, congenital scoliosis (insertion of lugue gavin), melissa fundoplication, microcephalus, otitis media, volvulus, epilepsy, GERD, and asthma, who presents to the emergency department via EMS from [place] with shortness of breath and found to have acute asthma exacerbation. During hospital stay, patient was treated with Solumedrol taper and oxygen at 2 liters. She was followed by pulmonary during hospital stay and has been cleared by pulmonary for discharge back to [place] on a Prednisone taper. Patient accepted back by Dr. Bloom. Vital Signs Period Temp Pulse Resp BP Sys/Holley Pulse Ox Last 24 Hr 97.2 F-98.1 F 88-104 19-30 101-120/66-79 96-99 PHYSICAL EXAM GENERAL: The patient is awake, alert, non verbal - tracks provider in room during exam. HEAD: Normal with no signs of trauma. EYES: PERRL, extraocular movements intact, sclera anicteric, conjunctiva clear. No ptosis. ENT: Ears normal, nares patent, oropharynx clear without exudates, moist mucous membranes. NECK: Trachea midline, full range of motion, supple. large keloid that extends on right neck LUNGS: diminished on anterior lungs but clear, no wheezing, diminished bilaterally - tolerating room air with stable oxygen sats. does not qualify for home oxygen. HEART: Regular rate and rhythm ABDOMEN: Soft, nontender, nondistended, normoactive bowel sounds, no guarding, no rebound, no hepatosplenomegaly, no masses. - has peg tube with 24 hour feeds at goal rate. EXTREMITIES: no edema. contracted. NEUROLOGICAL: non verbal PSYCH: Normal mood, normal affect. SKIN: Warm, dry, normal turgor, no rashes or lesions noted LABS Laboratory Results - last 24 hr 04/29/19 04/29/19 04/30/19 16:15 23:10 06:19 WBC RBC Hgb Hct MCV MCH MCHC RDW Plt Count MPV Absolute Neuts (auto) Neutrophils % Neutrophils % (Manual) Band Neutrophils % Lymphocytes % Lymphocytes % (Manual) Monocytes % Monocytes % (Manual) Eosinophils % Eosinophils % (Manual) Basophils % Basophils % (Manual) Myelocytes % (Man) Promyelocytes % (Man) Blast Cells % (Manual) Nucleated RBC % Metamyelocytes Hypochromia Platelet Estimate Polychromasia Poikilocytosis Anisocytosis Microcytosis Macrocytosis Sodium Potassium Chloride Carbon Dioxide Anion Gap BUN Creatinine Est GFR (CKD-EPI)AfAm Est GFR (CKD-EPI)NonAf POC Glucometer 101 105 134 Random Glucose Calcium Total Bilirubin AST ALT Alkaline Phosphatase Total Protein Albumin 04/30/19 04/30/19 13:03 13:03 WBC 12.4 H RBC 5.33 H Hgb 14.7 Hct 45.7 H MCV 85.8 MCH 27.6 MCHC 32.1 RDW 15.1 Plt Count 250 MPV 9.2 Absolute Neuts (auto) 11.9 H Neutrophils % 95.6 H D Neutrophils % (Manual) 91.9 H Band Neutrophils % 0.0 Lymphocytes % 3.4 L D Lymphocytes % (Manual) 3.1 L Monocytes % 0.9 L D Monocytes % (Manual) 2 L D Eosinophils % 0.0 D Eosinophils % (Manual) 0.0 Basophils % 0.1 Basophils % (Manual) 0.0 Myelocytes % (Man) 0 Promyelocytes % (Man) 0 Blast Cells % (Manual) 0 Nucleated RBC % 0 Metamyelocytes 0 Hypochromia 0 Platelet Estimate Normal Polychromasia 1+ Poikilocytosis 0 Anisocytosis 1+ Microcytosis 1+ Macrocytosis 0 Sodium 140 Potassium 4.3 Chloride 109 H Carbon Dioxide 23 Anion Gap 8 BUN 19.7 H Creatinine 0.4 L Est GFR (CKD-EPI)AfAm 152.06 Est GFR (CKD-EPI)NonAf 131.20 POC Glucometer Random Glucose 150 H Calcium 9.4 Total Bilirubin 0.2 AST 67 H ALT 80 H Alkaline Phosphatase 88 Total Protein 7.6 Albumin 3.5 HOSPITAL COURSE: Date of Admission:04/24/19 Date of Discharge: 04/30/19 Minutes to complete discharge: 45 Discharge Summary Problems reviewed: Yes Reason For Visit: EXACERBATION OF ASTHMA Current Active Problems Acute bronchitis (Acute) Ileus (Acute) Lives in long-term care facility (Acute) Microcephaly (Acute) long term resident (Acute) Severe malnutrition (Acute) Condition: Improved - Instructions Diet, Activity, Other Instructions: Mrs Oconnor: You were admitted for acute asthma exacerbation. You were treated with solumedrol and oxygen on 2 liters. A respiratory pre and post shows that you do not qualify for home oxygen. Next steps: Continue to take the Prednisone as follows: Prednisone 60mg given on 04/29/2019 at [facility] during hospital stay Prednisone 40mg given on 04/30/2019 at [facility] during hospital stay Prednisone 40mg (ONCE PER DAY) TO BE GIVEN ON 05/01/2019 Prednisone 40mg (ONCE PER DAY) TO BE GIVEN ON 05/02/2019 Prednisone 30mg (ONCE PER DAY) TO BE GIVEN ON 05/03/2019 Prednisone 30mg (ONCE PER DAY) TO BE GIVEN ON 05/04/2019 Prednisone 30mg (ONCE PER DAY) TO BE GIVEN ON 05/05/2019 Prednisone 20mg (ONCE PER DAY) TO BE GIVEN ON 05/06/2019 Prednisone 20mg (ONCE PER DAY) TO BE GIVEN ON 05/07/2019 Prednisone 20mg (ONCE PER DAY) TO BE GIVEN ON 05/08/2019 Prednisone 10mg (ONCE PER DAY) TO BE GIVEN ON 05/09/2019 Prednisone 10mg (ONCE PER DAY) TO BE GIVEN ON 05/10/2019 Prednisone 10mg (ONCE PER DAY) TO BE GIVEN ON 05/11/2019 LAST DOSE. NO FURTHER STERIODS NEEDED. Pulmonary consultation recommended, referral in discharge paperwork. Thank you Referrals: Braydon Bloom Jr [Primary Care Provider] - Edmundo Kidd MD [Staff Physician] - Disposition: [facility] - Home Medications Comprehensive Discharge Medication List: Ambulatory Orders Acetaminophen Oral Solution [Tylenol 160mg/5mL Oral Solution -] 650 mg GT Q6H PRN 08/08/18 Clotrimazole 1 applic TD BID 08/08/18 Hydrocortisone 1% Cream [Hytone 1% Cream -] 1 applic TP BID 08/08/18 Ipratropium/Albuterol Sulfate [Iprat-Albut 0.5-3(2.5) mg/3 ml] 3 ml IH QID 08/08 Magnesium Hydrox 2400MG/30Ml [Milk of Magnesia -] 30 ml GT HS 08/08/18 Montelukast Na [Singulair -] 10 mg GT 08/08/18 Phenobarbital 32.4 mg GT 08/08/18 Phenobarbital 64.8 mg GT 08/08/18 Lactose-Reduced Food/Fiber [Jevity 1.5 Del Liquid] 1,000 ml GT ASDIR 02/04/19 Albuterol 0.083% Nebulizer Kathleen [Ventolin 0.083% Nebulizer Soln -] 1 neb NEB Q4H PRN #30 vial 03/06/19 Ammonium Lactate Cream [Lac-Hydrin 12% Cream -] 1 applic TD BID 04/10/19 Bacitracin - [Bacitracin Topical Ointment -] 1 applic TP BID 04/10/19 Budesonide/Formeterol Fumarate [SYMBICORT 80/4.5mcg -] 2 puff IH BID 04/10/19 Mupirocin Ointment [Bactroban 2% Ointment -] 1 applic TD TID 04/10/19 predniSONE [Deltasone -] 20 mg PO DAILY #60 tablet 04/30/19 Problem List - Problems (1) Acute respiratory failure Assessment/Plan: resolved. tolerating room air. does not qualify for home oxygen per pre and post performed on 04/29/2019. No wheezing, lungs clear to auscultation. cleared by pulmonary for discharge back to [place] on prednisone taper. Code(s): J96.00 - ACUTE RESPIRATORY FAILURE, UNSP W HYPOXIA OR HYPERCAPNIA Qualifiers: Respiratory failure complication: hypoxia Qualified Code(s): J96.01 - Acute respiratory failure with hypoxia (2) Asthma exacerbation Assessment/Plan: resolved. see above. Code(s): J45.901 - UNSPECIFIED ASTHMA WITH (ACUTE) EXACERBATION Qualifiers: Asthma severity: moderate Asthma persistence: unspecified Qualified Code( s): J45.901 - Unspecified asthma with (acute) exacerbation (3) Functional quadriplegia Assessment/Plan: turn and position to protect bony prominences. patient is bed bound Code(s): R53.2 - FUNCTIONAL QUADRIPLEGIA (4) PEG (percutaneous endoscopic gastrostomy) status Assessment/Plan: tolerating feeds Code(s): Z93.1 - GASTROSTOMY STATUS (5) Seizure disorder Assessment/Plan: on phenobarbital, no seizures during hospital stay. Code(s): G40.909 - EPILEPSY, UNSP, NOT INTRACTABLE, WITHOUT STATUS EPILEPTICUS (6) Prophylactic measure Assessment/Plan: discharge back to [place]. Would benefit from outpatient pulmonary follow up to prevent asthma exacerbations. full code Code(s): Z29.9 - ENCOUNTER FOR PROPHYLACTIC MEASURES, UNSPECIFIED This patient is new to me today: No Emergency Visit: Yes ED Registration Date: 04/24/19 Care time: The patient presented to the Emergency Department on the above date and was hospitalized for further evaluation of their emergent condition. Critical Care patient: No - Discharge Referral Referred to [facility] Med [facility] No
== END 2019-04-30 18:11 | DRG 141 ==
LOC: JER 09:51 → JERBED 12:29 → J6S 14:41
PROVIDERS: ADMIT Hospitalist; ATTEND Nurse Practitioner Family
DX: J45.901 Unspecified asthma with (acute) exacerbation (principal); F73 Profound intellectual disabilities; K21.9 Gastro-esophageal reflux disease without esophagitis; E43 Unspecified severe protein-calorie malnutrition; J96.01 Acute respiratory failure with hypoxia; G80.8 Other cerebral palsy; Q02 Microcephaly; G40.909 Epilepsy, unspecified, not intractable, without status epilepticus; R53.2 Functional quadriplegia; J20.9 Acute bronchitis, unspecified; R00.0 Tachycardia, unspecified; Q67.5 Congenital deformity of spine; H66.90 Otitis media, unspecified, unspecified ear; K56.7 Ileus, unspecified; K20.9 Esophagitis, unspecified; Z87.2 Personal history of diseases of the skin and subcutaneous tissue; Z78.9 Other specified health status; Z68.20 Body mass index [BMI] 20.0-20.9, adult; Z93.1 Gastrostomy status
CPT/HCPCS: 36415; 71045-TC-FY; 74019-TC-FY; 80053; 82962; 83605; 83735; 84703; 85025; 87040; 87804; 87807; 93005; 93010; 94640; 94761; 99282-25; 99284-25; J1644

== ENCOUNTER 2021-05-14 06:24 | Inpatient (IN) | payer OTHER ==
[2021-05-14 06:47] VITALS: BMI 16.2
[2021-05-14] MEDS ORDERED: methylPREDNISolone NA SUCC 40 MG/1 ML VIAL IVPUSH ONE (07:24)
[2021-05-14] MEDS ORDERED: SODIUM CHLORIDE IV ONE (07:25)
[2021-05-14] MEDS: ALBUTEROL SO4 2.5/IPRATROPIUM 0.5 INH SOL 3 ML VIAL.NEB. NEB SCH ×10 (07:31→21:21)
[2021-05-14] MEDS ORDERED: ACETAMINOPHEN INJECTION 100 ML IVPB ONE (07:41)
[2021-05-14] MEDS ORDERED: ALBUTEROL SO4 2.5/IPRATROPIUM 0.5 INH SOL 3 ML VIAL.NEB. NEB ONE ×3 (07:41→21:18)
[2021-05-14] MEDS ORDERED: methylPREDNISolone NA SUCC 40 MG/1 ML VIAL ONE ×3 (07:41→22:27)
[2021-05-14] MEDS ORDERED: ACETAMINOPHEN 1000 MG/100 ML VIAL IVPB ONE (07:47)
[2021-05-14 07:58] LABS: BASO % 0.4 % (0-2.0); EOS % 1.5 % (0-4.5); HEMATOCRIT 41.7 % (32.4-45.2); HEMOGLOBIN 13.9 GM/dL (10.7-15.3); LYMPH % 5.9 % (8-40); MCH 28.3 pg (25.7-33.7); MCHC 33.4 g/dl (32.0-36.0); MEAN CELL VOLUME 84.7 fl (80-96); MEAN PLT VOLUME 9.6 fl (7.5-11.1); MONO % 5.1 % (3.8-10.2); NEUT % 87.1 % (42.8-82.8); PLATELET COUNT 337 10^3/uL (134-434); RBC 4.92 M/mm3 (3.60-5.2); RDW 14.8 % (11.6-15.6); WHITE BLOOD COUNT 16.7 K/mm3 (4.0-10.0)
[2021-05-14 08:33] LABS: ALBUMIN 3.1 g/dl (3.4-5.0); BLOOD UREA NITROGEN 21.4 mg/dL (7-18)
[2021-05-14 08:36] LABS: CREATININE 0.4 mg/dL (0.55-1.3)
[2021-05-14 08:37] LABS: BILIRUBIN,TOTAL 0.3 mg/dL (0.2-1); TOT PROT 7.6 g/dl (6.4-8.2)
[2021-05-14] MEDS ORDERED: AZITHROMYCIN IVPB 500 MG in DEXTROSE 5%-WATER - 250 ML IVPB ONE (10:30)
[2021-05-14] MEDS ORDERED: ACETAMINOPHEN 650 MG/20.3 ML ORAL SOLUTION (CUPS) GT PRN (11:03)
[2021-05-14] MEDS ORDERED: SCOPOLAMINE HYDROBROMIDE 1 PATCH PATCH.TD72 TD SCH (11:15)
[2021-05-14] MEDS: CEFTRIAXONE 1 GM in DEXTROSE 5%-WATER - 50 ML IVPB SCH (11:22)
[2021-05-14] MEDS ORDERED: CEFTRIAXONE 1 GM/50 ML BAG ONE (11:35)
[2021-05-14] MEDS ORDERED: AZITHROMYCIN IVPB 500 MG/250 ML BAG IVPB ONE (11:36)
[2021-05-14] MEDS ORDERED: ALBUTEROL SO4 0.083% IH SOL 2.5 MG/3 ML VIAL.NEB. NEB SCH (12:00)
[2021-05-14 14:09] LABS: CALCIUM 8.7 mg/dL (8.5-10.1)
[2021-05-14 14:10] LABS: BLOOD UREA NITROGEN 17.2 mg/dL (7-18)
[2021-05-14 14:13] LABS: CREATININE 0.4 mg/dL (0.55-1.3)
[2021-05-14] MEDS ORDERED: ALBUTEROL SO4 0.083% IH SOL 2.5 MG/3 ML VIAL.NEB. NEB ONE (15:43)
[2021-05-14] MEDS: methylPREDNISolone NA SUCC 40 MG/1 ML VIAL IVPUSH SCH (19:10)
[2021-05-14] MEDS ORDERED: PHENobarbital 20 MG/5 ML UNIT-DOSE CUP GT SCH (22:00)
[2021-05-14] MEDS ORDERED: MONTELUKAST NA 10 MG TABLET ONE (22:27)
[2021-05-14] MEDS ORDERED: BACLOFEN 10 MG TABLET (FP) ONE (22:27)
[2021-05-14] MEDS: MONTELUKAST NA 10 MG TABLET GT SCH (22:40)
[2021-05-14] MEDS: BACLOFEN 10 MG TABLET (FP) GT SCH (22:40)
[2021-05-15] MEDS: methylPREDNISolone NA SUCC 40 MG/1 ML VIAL IVPUSH SCH ×3 (02:30→18:35)
[2021-05-15] MEDS: ALBUTEROL SO4 2.5/IPRATROPIUM 0.5 INH SOL 3 ML VIAL.NEB. NEB SCH ×3 (09:44→20:44)
[2021-05-15] MEDS: ENOXAPARIN NA (PORCINE) 40 MG/0.4 ML DISP.SYRIN SQ SCH (10:00)
[2021-05-15] MEDS: BACLOFEN 10 MG TABLET (FP) GT SCH ×2 (10:00→21:38)
[2021-05-15] MEDS: AZITHROMYCIN IVPB 500 MG/250 ML BAG IVPB SCH (10:00)
[2021-05-15] MEDS: CEFTRIAXONE 1 GM in DEXTROSE 5%-WATER - 50 ML IVPB SCH (10:00)
[2021-05-15] MEDS ORDERED: AZITHROMYCIN IVPB 500 MG/250 ML BAG IVPB ONE (10:27)
[2021-05-15] MEDS ORDERED: CEFTRIAXONE 1 GM/50 ML BAG ONE (10:27)
[2021-05-15] MEDS ORDERED: methylPREDNISolone NA SUCC 40 MG/1 ML VIAL ONE ×2 (10:27)
[2021-05-15] MEDS ORDERED: ALBUTEROL SO4 0.083% IH SOL 2.5 MG/3 ML VIAL.NEB. NEB ONE (10:39)
[2021-05-15 14:36] LABS: HEMOGLOBIN 14.1 GM/dL (10.7-15.3); MCH 27.7 pg (25.7-33.7); MCHC 32.9 g/dl (32.0-36.0); MEAN CELL VOLUME 84.2 fl (80-96); MEAN PLT VOLUME 9.6 fl (7.5-11.1); PLATELET COUNT 312 10^3/uL (134-434); RDW 14.9 % (11.6-15.6); WHITE BLOOD COUNT 8.4 K/mm3 (4.0-10.0)
[2021-05-15] MEDS ORDERED: BACLOFEN 10 MG TABLET (FP) ONE (15:17)
[2021-05-15 15:27] LABS: CALCIUM 8.9 mg/dL (8.5-10.1)
[2021-05-15 15:28] LABS: ALBUMIN 2.9 g/dl (3.4-5.0); BLOOD UREA NITROGEN 10.9 mg/dL (7-18)
[2021-05-15 15:30] LABS: ANISOCYTOSIS 0; MACROCYTOSIS 0; PHOSPHOROUS 2.7 mg/dL (2.5-4.9); PLATELET ESTIMATE NORMAL
[2021-05-15 15:31] LABS: CREATININE 0.3 mg/dL (0.55-1.3); MAGNESIUM 2.4 mg/dL (1.8-2.4)
[2021-05-15 15:32] LABS: BILIRUBIN,TOTAL 0.3 mg/dL (0.2-1); TOT PROT 7.6 g/dl (6.4-8.2)
[2021-05-15] MEDS: MONTELUKAST NA 10 MG TABLET GT SCH (21:38)
[2021-05-15] MEDS: PHENobarbital 20 MG/5 ML UNIT-DOSE CUP GT SCH (21:38)
[2021-05-15] MEDS ORDERED: PHENobarbital 20 MG/5 ML UNIT-DOSE CUP GT SCH (22:00)
[2021-05-16] MEDS: methylPREDNISolone NA SUCC 40 MG/1 ML VIAL IVPUSH SCH ×3 (01:27→17:13)
[2021-05-16] MEDS: ALBUTEROL SO4 2.5/IPRATROPIUM 0.5 INH SOL 3 ML VIAL.NEB. NEB SCH ×4 (07:50→20:04)
[2021-05-16 09:46] LABS: BASO % 0.2 % (0-2.0); HEMATOCRIT 43.2 % (32.4-45.2); HEMOGLOBIN 14.2 GM/dL (10.7-15.3); LYMPH % 8.4 % (8-40); MCH 28.2 pg (25.7-33.7); MEAN CELL VOLUME 85.4 fl (80-96); MEAN PLT VOLUME 9.7 fl (7.5-11.1); MONO % 3.8 % (3.8-10.2); NEUT % 87.6 % (42.8-82.8); PLATELET COUNT 328 10^3/uL (134-434); RBC 5.06 M/mm3 (3.60-5.2); RDW 14.6 % (11.6-15.6); WHITE BLOOD COUNT 10.3 K/mm3 (4.0-10.0)
[2021-05-16] MEDS ORDERED: cefTRIAXone SODIUM 1 GM VIAL ONE (09:54)
[2021-05-16] MEDS: CEFTRIAXONE 1 GM in DEXTROSE 5%-WATER - 50 ML IVPB SCH (09:56)
[2021-05-16] MEDS ORDERED: DEXTROSE 5%-WATER - 50 ML IVPB ONE (09:56)
[2021-05-16] MEDS: AZITHROMYCIN IVPB 500 MG/250 ML BAG IVPB SCH (10:00)
[2021-05-16] MEDS: BACLOFEN 10 MG TABLET (FP) GT SCH (10:00)
[2021-05-16] MEDS: ENOXAPARIN NA (PORCINE) 40 MG/0.4 ML DISP.SYRIN SQ SCH (10:01)
[2021-05-16 10:27] LABS: CALCIUM 9.3 mg/dL (8.5-10.1)
[2021-05-16 10:28] LABS: BILIRUBIN,TOTAL 0.4 mg/dL (0.2-1); BLOOD UREA NITROGEN 16.6 mg/dL (7-18); CREATININE 0.4 mg/dL (0.55-1.3)
[2021-05-16 10:39] LABS: ALBUMIN 3.4 g/dl (3.4-5.0)
[2021-05-17] MEDS: methylPREDNISolone NA SUCC 40 MG/1 ML VIAL IVPUSH SCH ×2 (01:26→10:03)
[2021-05-17] MEDS: MONTELUKAST NA 10 MG TABLET GT SCH (01:26)
[2021-05-17] MEDS: BACLOFEN 10 MG TABLET (FP) GT SCH ×2 (01:26→10:02)
[2021-05-17] MEDS: PHENobarbital 20 MG/5 ML UNIT-DOSE CUP GT SCH (01:27)
[2021-05-17] MEDS: ALBUTEROL SO4 2.5/IPRATROPIUM 0.5 INH SOL 3 ML VIAL.NEB. NEB SCH ×3 (08:55→17:00)
[2021-05-17 09:08] LABS: BASO % 0.3 % (0-2.0); EOS % 0.1 % (0-4.5); HEMATOCRIT 41.4 % (32.4-45.2); HEMOGLOBIN 13.7 GM/dL (10.7-15.3); MEAN CELL VOLUME 84.7 fl (80-96); MEAN PLT VOLUME 9.1 fl (7.5-11.1); MONO % 8.2 % (3.8-10.2); NEUT % 72.4 % (42.8-82.8); PLATELET COUNT 302 10^3/uL (134-434); RBC 4.89 M/mm3 (3.60-5.2); RDW 14.8 % (11.6-15.6); WHITE BLOOD COUNT 7.8 K/mm3 (4.0-10.0)
[2021-05-17] MEDS: ENOXAPARIN NA (PORCINE) 40 MG/0.4 ML DISP.SYRIN SQ SCH (10:02)
[2021-05-17 10:32] LABS: CREATININE 0.3 mg/dL (0.55-1.3)
[2021-05-17 10:34] LABS: BILIRUBIN,TOTAL 0.3 mg/dL (0.2-1); TOT PROT 6.9 g/dl (6.4-8.2)
[2021-05-17 10:38] LABS: BLOOD UREA NITROGEN 12.7 mg/dL (7-18); CALCIUM 9.1 mg/dL (8.5-10.1)
[2021-05-17 14:23] VITALS: BP 133/63; PULSE 86; TEMP 97.3
== END 2021-05-17 17:20 | DRG 141 ==
LOC: JER 06:24 → JERBED 09:15 → J6S 05-15 17:47
PROVIDERS: ADMIT Internal Medicine
DX: J45.901 Unspecified asthma with (acute) exacerbation (principal); J69.0 Pneumonitis due to inhalation of food and vomit; J96.01 Acute respiratory failure with hypoxia; F72 Severe intellectual disabilities; Q02 Microcephaly; G40.909 Epilepsy, unspecified, not intractable, without status epilepticus; G80.9 Cerebral palsy, unspecified; K21.9 Gastro-esophageal reflux disease without esophagitis; L91.0 Hypertrophic scar; R53.2 Functional quadriplegia; D72.829 Elevated white blood cell count, unspecified; Q67.5 Congenital deformity of spine; R50.9 Fever, unspecified; H66.90 Otitis media, unspecified, unspecified ear
CPT/HCPCS: 36415; 71045-TC-FY; 80048; 80053; 83605; 83735; 84100; 84484; 85025; 87040; 87804; 87807; 93005; 93010; 94640; 99285-25; C9803; J0131; J0475; U0003; U0005

== ENCOUNTER 2021-08-03 21:09 | Inpatient (IN) | payer OTHER ==
[2021-08-03] MEDS ORDERED: ALBUTEROL SO4 0.083% IH SOL 2.5 MG/3 ML VIAL.NEB. NEB ONE ×2 (21:20→23:23)
[2021-08-03] MEDS ORDERED: DEXAMETHASONE SOD PHOSPHATE 10 MG/1 ML VIAL ONE (21:20)
[2021-08-03] MEDS ORDERED: MAGNESIUM 1GM/D5W - 1 GM/100 ML IVPB IVPB ONE (21:59)
[2021-08-03] MEDS ORDERED: ALBUTEROL SO4 0.083% IH SOL 2.5 MG/3 ML VIAL.NEB. NEB SCH (22:00)
[2021-08-03] MEDS: ALBUTEROL SO4 0.083% IH SOL 2.5 MG/3 ML VIAL.NEB. NEB SCH ×3 (22:08→23:33)
[2021-08-03 22:49] LABS: HEMATOCRIT 39.1 % (32.4-45.2); HEMOGLOBIN 12.8 GM/dL (10.7-15.3); MCH 27.1 pg (25.7-33.7); MCHC 32.8 g/dl (32.0-36.0); MEAN CELL VOLUME 82.5 fl (80-96); MEAN PLT VOLUME 8.8 fl (7.5-11.1); PLATELET COUNT 320 10^3/uL (134-434); RBC 4.74 M/mm3 (3.60-5.2); WHITE BLOOD COUNT 13.9 K/mm3 (4.0-10.0)
[2021-08-03 22:58] LABS: INR 1.17 (0.83-1.09); PROTHROMBIN TIME (PATIENT) 13.5 SEC (9.7-13.0)
[2021-08-03 23:01] LABS: ACTIVATED PTT 30.1 SECONDS (25.2-36.5)
[2021-08-03 23:17] LABS: PH,URINE 5.5 (5.0-8.0); URINE APPEARANCE CLEAR; URINE BILIRUBIN NEGATIVE (NEGATIVE); URINE COLOR YELLOW; URINE GLUCOSE (UA) NEGATIVE (NEGATIVE); URINE KETONE NEGATIVE (NEGATIVE); URINE LEUK ESTERASE NEGATIVE (NEGATIVE); URINE NITRITE NEGATIVE (NEGATIVE); URINE PROTEIN NEGATIVE (NEGATIVE); URINE UROBILINOGEN 0.2 mg/dL (0.2-1.0)
[2021-08-03 23:36] LABS: ANISOCYTOSIS 0; MACROCYTOSIS 0; PLATELET ESTIMATE NORMAL; TOXIC GRANULATION 2+
[2021-08-04 02:06] LABS: ALBUMIN 3.4 g/dl (3.4-5.0)
[2021-08-04 02:07] LABS: BLOOD UREA NITROGEN 9.8 mg/dL (7-18)
[2021-08-04 02:09] LABS: CREATININE 0.4 mg/dL (0.55-1.3)
[2021-08-04 02:11] LABS: BILIRUBIN,TOTAL 0.2 mg/dL (0.2-1); TOT PROT 7.4 g/dl (6.4-8.2)
[2021-08-04 06:34] VITALS: BMI 15.6
[2021-08-04] MEDS: ALBUTEROL SO4 0.083% IH SOL 2.5 MG/3 ML VIAL.NEB. NEB SCH ×4 (08:50→20:05)
[2021-08-04] MEDS ORDERED: CEFTRIAXONE 1,000 GM in DEXTROSE 5%-WATER - 50 ML IVPB SCH ×2 (10:00→11:15)
[2021-08-04] MEDS ORDERED: AZITHROMYCIN IVPB 500 MG in DEXTROSE 5%-WATER - 250 ML IVPB SCH (10:00)
[2021-08-04] MEDS ORDERED: ENOXAPARIN NA (PORCINE) 40 MG/0.4 ML DISP.SYRIN SQ SCH (10:00)
[2021-08-04] MEDS: BUDESONIDE/FORMETEROL FUMARATE 80/4.5 mcg INHALER IH SCH ×2 (10:07→21:33)
[2021-08-04] MEDS: DEXAMETHASONE SOD PHOSPHATE 10 MG/1 ML VIAL IVPUSH SCH (10:42)
[2021-08-04] MEDS: BACLOFEN 10 MG TABLET (FP) GT SCH ×2 (10:42→21:33)
[2021-08-04 12:21] LABS: HEMATOCRIT 37.5 % (32.4-45.2); HEMOGLOBIN 12.5 GM/dL (10.7-15.3); MCH 27.2 pg (25.7-33.7); MCHC 33.2 g/dl (32.0-36.0); MEAN CELL VOLUME 81.9 fl (80-96); MEAN PLT VOLUME 8.7 fl (7.5-11.1); PLATELET COUNT 302 10^3/uL (134-434); RBC 4.58 M/mm3 (3.60-5.2); RDW 14.7 % (11.6-15.6); WHITE BLOOD COUNT 9.3 K/mm3 (4.0-10.0)
[2021-08-04 12:33] LABS: INR 1.14 (0.83-1.09); PROTHROMBIN TIME (PATIENT) 13.1 SEC (9.7-13.0)
[2021-08-04 12:36] LABS: CALCIUM 8.7 mg/dL (8.5-10.1)
[2021-08-04 12:37] LABS: ALBUMIN 2.9 g/dl (3.4-5.0); BLOOD UREA NITROGEN 7.1 mg/dL (7-18); MAGNESIUM 2.3 mg/dL (1.8-2.4)
[2021-08-04 12:40] LABS: CREATININE 0.3 mg/dL (0.55-1.3); PHOSPHOROUS 3.5 mg/dL (2.5-4.9)
[2021-08-04 12:41] LABS: TOT PROT 6.7 g/dl (6.4-8.2)
[2021-08-04 12:42] LABS: BILIRUBIN,TOTAL 0.2 mg/dL (0.2-1)
[2021-08-04 13:57] LABS: ERYTHROCYTE SEDIMENTATION RATE 22 mm/hr (0-20)
[2021-08-04] MEDS ORDERED: REMDESIVIR 200 MG in SODIUM CHLORIDE 250 ML IVPB ONE (15:00)
[2021-08-04] MEDS: FAMOTIDINE 40 MG/5 ML ORAL SUSPENSION NGT SCH ×2 (15:50→21:33)
[2021-08-04] MEDS: ENOXAPARIN NA (PORCINE) 40 MG/0.4 ML DISP.SYRIN SQ SCH (15:50)
[2021-08-04] MEDS: MONTELUKAST NA 10 MG TABLET GT SCH (21:31)
[2021-08-04] MEDS: PHENobarbital 30 MG TABLET GT SCH (21:32)
[2021-08-04] MEDS ORDERED: PATIENT'S OWN MEDICATION (NON-FORMULARY) (Phenobarbital [Phenobarbital] 64.8 MG Tablet) GT SCH (22:00)
[2021-08-05 08:32] LABS: HEMATOCRIT 38.8 % (32.4-45.2); HEMOGLOBIN 12.6 GM/dL (10.7-15.3); MCHC 32.4 g/dl (32.0-36.0); MEAN CELL VOLUME 83.5 fl (80-96); MEAN PLT VOLUME 9.1 fl (7.5-11.1); PLATELET COUNT 322 10^3/uL (134-434); RBC 4.64 M/mm3 (3.60-5.2); RDW 15.1 % (11.6-15.6); WHITE BLOOD COUNT 10.4 K/mm3 (4.0-10.0)
[2021-08-05 08:51] LABS: BLOOD UREA NITROGEN 11.1 mg/dL (7-18); CALCIUM 8.5 mg/dL (8.5-10.1); MAGNESIUM 2.2 mg/dL (1.8-2.4)
[2021-08-05 08:54] LABS: CREATININE 0.3 mg/dL (0.55-1.3)
[2021-08-05 08:56] LABS: BILIRUBIN,TOTAL 0.3 mg/dL (0.2-1); TOT PROT 6.7 g/dl (6.4-8.2)
[2021-08-05] MEDS: DEXAMETHASONE SOD PHOSPHATE 10 MG/1 ML VIAL IVPUSH SCH (10:25)
[2021-08-05] MEDS: BACLOFEN 10 MG TABLET (FP) GT SCH ×2 (10:27→21:38)
[2021-08-05] MEDS: ENOXAPARIN NA (PORCINE) 40 MG/0.4 ML DISP.SYRIN SQ SCH (10:27)
[2021-08-05] MEDS: FAMOTIDINE 40 MG/5 ML ORAL SUSPENSION NGT SCH ×2 (10:28→21:39)
[2021-08-05] MEDS: BUDESONIDE/FORMETEROL FUMARATE 80/4.5 mcg INHALER IH SCH ×2 (10:37→21:38)
[2021-08-05 10:41] LABS: ANISOCYTOSIS 0; HELMET CELLS 0; HOWELL-JOLLY BODIES 0; MACROCYTOSIS 0; OVALOCYTE 0; ROULEAU 0; SICKELED CELLS 0; TARGET CELLS 0; TEAR DROP CELLS 0; TOXIC GRANULATION 0
[2021-08-05] MEDS: SODIUM CHLORIDE IVPB SCH (15:50)
[2021-08-05] MEDS: REMDESIVIR IVPB SCH (15:50)
[2021-08-05] MEDS: MONTELUKAST NA 10 MG TABLET GT SCH (21:38)
[2021-08-05] MEDS: PHENobarbital 30 MG TABLET GT SCH (21:38)
[2021-08-06 06:59] LABS: ARTERIAL BLD GAS O2 SATURATION 97.6 % (95-98); ARTERIAL BLOOD GAS BASE EXCESS 0.9 mmol/L (-2-2); ARTERIAL BLOOD GAS PO2 105.1 mmHg (80-100); ARTERIAL BLOOD GAS pH 7.369 (7.350-7.450)
[2021-08-06] MEDS: ALBUTEROL SO4 HFA INHALER IH SCH ×4 (08:39→21:07)
[2021-08-06 10:12] LABS: BASO % 0.4 % (0-2.0); EOS % 2.8 % (0-4.5); HEMATOCRIT 40.7 % (32.4-45.2); HEMOGLOBIN 13.1 GM/dL (10.7-15.3); LYMPH % 12.6 % (8-40); MCH 26.9 pg (25.7-33.7); MCHC 32.1 g/dl (32.0-36.0); MEAN PLT VOLUME 8.9 fl (7.5-11.1); MONO % 11.1 % (3.8-10.2); NEUT % 73.1 % (42.8-82.8); PLATELET COUNT 333 10^3/uL (134-434); RBC 4.85 M/mm3 (3.60-5.2); RDW 14.8 % (11.6-15.6); WHITE BLOOD COUNT 12.8 K/mm3 (4.0-10.0)
[2021-08-06 10:28] LABS: CALCIUM 8.8 mg/dL (8.5-10.1)
[2021-08-06 10:29] LABS: ALBUMIN 3.1 g/dl (3.4-5.0); BLOOD UREA NITROGEN 13.8 mg/dL (7-18); MAGNESIUM 2.3 mg/dL (1.8-2.4)
[2021-08-06 10:32] LABS: CREATININE 0.3 mg/dL (0.55-1.3); PHOSPHOROUS 3.2 mg/dL (2.5-4.9)
[2021-08-06 10:33] LABS: TOT PROT 7.2 g/dl (6.4-8.2)
[2021-08-06 10:34] LABS: BILIRUBIN,TOTAL 0.3 mg/dL (0.2-1)
[2021-08-06] MEDS: BACLOFEN 10 MG TABLET (FP) GT SCH ×2 (10:35→21:07)
[2021-08-06] MEDS: ENOXAPARIN NA (PORCINE) 30 MG/0.3 ML DISP.SYRIN SQ SCH (10:35)
[2021-08-06] MEDS: FAMOTIDINE 40 MG/5 ML ORAL SUSPENSION NGT SCH ×2 (10:36→22:54)
[2021-08-06] MEDS: BUDESONIDE/FORMETEROL FUMARATE 80/4.5 mcg INHALER IH SCH ×2 (10:37→22:55)
[2021-08-06] MEDS: methylPREDNISolone NA SUCC 40 MG/1 ML VIAL IVPUSH SCH ×2 (10:44→17:50)
[2021-08-06] MEDS: DEXAMETHASONE SOD PHOSPHATE 10 MG/1 ML VIAL IVPUSH SCH (11:03)
[2021-08-06] MEDS: REMDESIVIR IVPB SCH (14:29)
[2021-08-06] MEDS: SODIUM CHLORIDE IVPB SCH (14:29)
[2021-08-06] MEDS: PHENobarbital 30 MG TABLET GT SCH (21:07)
[2021-08-06] MEDS: MONTELUKAST NA 10 MG TABLET GT SCH (21:07)
[2021-08-07] MEDS: methylPREDNISolone NA SUCC 40 MG/1 ML VIAL IVPUSH SCH ×3 (02:30→18:39)
[2021-08-07] MEDS: ALBUTEROL SO4 HFA INHALER IH SCH ×4 (09:16→21:00)
[2021-08-07 10:19] LABS: CALCIUM 8.5 mg/dL (8.5-10.1)
[2021-08-07 10:20] LABS: ALBUMIN 2.8 g/dl (3.4-5.0); BLOOD UREA NITROGEN 13.5 mg/dL (7-18); MAGNESIUM 2.2 mg/dL (1.8-2.4)
[2021-08-07 10:23] LABS: CREATININE 0.3 mg/dL (0.55-1.3); PHOSPHOROUS 3.1 mg/dL (2.5-4.9)
[2021-08-07 10:24] LABS: BILIRUBIN,TOTAL 0.3 mg/dL (0.2-1); TOT PROT 6.5 g/dl (6.4-8.2)
[2021-08-07 10:25] LABS: BASO % 0.2 % (0-2.0); EOS % 0.1 % (0-4.5); HEMATOCRIT 38.5 % (32.4-45.2); HEMOGLOBIN 12.5 GM/dL (10.7-15.3); LYMPH % 7.3 % (8-40); MCHC 32.5 g/dl (32.0-36.0); MEAN CELL VOLUME 83.2 fl (80-96); MONO % 6.4 % (3.8-10.2); PLATELET COUNT 301 10^3/uL (134-434); RBC 4.63 M/mm3 (3.60-5.2); WHITE BLOOD COUNT 11.3 K/mm3 (4.0-10.0)
[2021-08-07] MEDS: ENOXAPARIN NA (PORCINE) 30 MG/0.3 ML DISP.SYRIN SQ SCH (11:15)
[2021-08-07] MEDS: MULTIVIT-MINERALS ORAL LIQUID GT SCH (11:16)
[2021-08-07] MEDS: BUDESONIDE/FORMETEROL FUMARATE 80/4.5 mcg INHALER IH SCH ×2 (11:16→23:06)
[2021-08-07] MEDS: FAMOTIDINE 40 MG/5 ML ORAL SUSPENSION NGT SCH ×2 (11:16→23:05)
[2021-08-07] MEDS: ASCORBIC ACID 250 MG TABLET (FP) PO SCH (11:16)
[2021-08-07] MEDS: BACLOFEN 10 MG TABLET (FP) GT SCH ×2 (11:16→23:05)
[2021-08-07] MEDS: SODIUM CHLORIDE IVPB SCH (16:36)
[2021-08-07] MEDS: REMDESIVIR IVPB SCH (16:36)
[2021-08-07] MEDS: PHENobarbital 30 MG TABLET GT SCH (23:05)
[2021-08-07] MEDS: MONTELUKAST NA 10 MG TABLET GT SCH (23:05)
[2021-08-08] MEDS: methylPREDNISolone NA SUCC 40 MG/1 ML VIAL IVPUSH SCH ×4 (01:29→21:20)
[2021-08-08] MEDS: ALBUTEROL SO4 HFA INHALER IH SCH ×6 (07:48→21:20)
[2021-08-08 08:43] LABS: HEMATOCRIT 40.1 % (32.4-45.2); HEMOGLOBIN 12.4 GM/dL (10.7-15.3); MCH 26.2 pg (25.7-33.7); MCHC 30.9 g/dl (32.0-36.0); MEAN CELL VOLUME 84.6 fl (80-96); MEAN PLT VOLUME 9.4 fl (7.5-11.1); PLATELET COUNT 307 10^3/uL (134-434); RBC 4.74 M/mm3 (3.60-5.2); RDW 14.9 % (11.6-15.6); WHITE BLOOD COUNT 14.3 K/mm3 (4.0-10.0)
[2021-08-08 09:06] LABS: CALCIUM 8.6 mg/dL (8.5-10.1)
[2021-08-08 09:07] LABS: ALBUMIN 2.9 g/dl (3.4-5.0); BLOOD UREA NITROGEN 14.9 mg/dL (7-18); MAGNESIUM 2.2 mg/dL (1.8-2.4)
[2021-08-08 09:10] LABS: CREATININE 0.3 mg/dL (0.55-1.3); PHOSPHOROUS 3.3 mg/dL (2.5-4.9)
[2021-08-08 09:11] LABS: BILIRUBIN,TOTAL 0.2 mg/dL (0.2-1); TOT PROT 6.5 g/dl (6.4-8.2)
[2021-08-08] MEDS: FAMOTIDINE 40 MG/5 ML ORAL SUSPENSION NGT SCH ×2 (09:53→21:21)
[2021-08-08] MEDS: MULTIVIT-MINERALS ORAL LIQUID GT SCH (09:53)
[2021-08-08] MEDS: ENOXAPARIN NA (PORCINE) 30 MG/0.3 ML DISP.SYRIN SQ SCH (09:54)
[2021-08-08] MEDS: BACLOFEN 10 MG TABLET (FP) GT SCH ×2 (09:54→21:20)
[2021-08-08] MEDS: ASCORBIC ACID 250 MG TABLET (FP) PO SCH (09:54)
[2021-08-08] MEDS: BUDESONIDE/FORMETEROL FUMARATE 80/4.5 mcg INHALER IH SCH ×2 (09:54→21:21)
[2021-08-08 13:25] LABS: N-TERMINAL BNP 22.4 pg/ml (5-125)
[2021-08-08] MEDS: REMDESIVIR IVPB SCH (15:50)
[2021-08-08] MEDS: SODIUM CHLORIDE IVPB SCH (15:50)
[2021-08-08] MEDS: PHENobarbital 30 MG TABLET GT SCH (21:20)
[2021-08-08] MEDS: MONTELUKAST NA 10 MG TABLET GT SCH (21:20)
[2021-08-09] MEDS: methylPREDNISolone NA SUCC 40 MG/1 ML VIAL IVPUSH SCH ×4 (02:28→21:16)
[2021-08-09] MEDS: ALBUTEROL SO4 HFA INHALER IH SCH ×4 (08:24→21:16)
[2021-08-09 08:44] LABS: HEMATOCRIT 40.4 % (32.4-45.2); HEMOGLOBIN 13.2 GM/dL (10.7-15.3); MCH 27.2 pg (25.7-33.7); MCHC 32.5 g/dl (32.0-36.0); MEAN CELL VOLUME 83.7 fl (80-96); MEAN PLT VOLUME 9.1 fl (7.5-11.1); PLATELET COUNT 271 10^3/uL (134-434); RBC 4.83 M/mm3 (3.60-5.2); RDW 14.7 % (11.6-15.6); WHITE BLOOD COUNT 18.4 K/mm3 (4.0-10.0)
[2021-08-09 08:54] LABS: CALCIUM 8.9 mg/dL (8.5-10.1)
[2021-08-09 08:55] LABS: BLOOD UREA NITROGEN 12.7 mg/dL (7-18)
[2021-08-09 08:58] LABS: CREATININE 0.3 mg/dL (0.55-1.3)
[2021-08-09] MEDS: MULTIVIT-MINERALS ORAL LIQUID GT SCH (10:20)
[2021-08-09] MEDS: ENOXAPARIN NA (PORCINE) 30 MG/0.3 ML DISP.SYRIN SQ SCH (10:21)
[2021-08-09] MEDS: FAMOTIDINE 40 MG/5 ML ORAL SUSPENSION NGT SCH ×2 (10:21→21:17)
[2021-08-09] MEDS: BACLOFEN 10 MG TABLET (FP) GT SCH ×2 (10:22→21:17)
[2021-08-09] MEDS: ASCORBIC ACID 250 MG TABLET (FP) PO SCH (10:22)
[2021-08-09] MEDS: BUDESONIDE/FORMETEROL FUMARATE 80/4.5 mcg INHALER IH SCH ×2 (10:37→21:35)
[2021-08-09] MEDS: PHENobarbital 30 MG TABLET GT SCH (21:17)
[2021-08-09] MEDS: MONTELUKAST NA 10 MG TABLET GT SCH (21:34)
[2021-08-10] MEDS: methylPREDNISolone NA SUCC 40 MG/1 ML VIAL IVPUSH SCH ×3 (03:02→18:34)
[2021-08-10] MEDS: ALBUTEROL SO4 HFA INHALER IH SCH ×4 (09:04→21:36)
[2021-08-10 09:58] LABS: HEMATOCRIT 40.2 % (32.4-45.2); HEMOGLOBIN 12.9 GM/dL (10.7-15.3); MCH 26.7 pg (25.7-33.7); MCHC 32.1 g/dl (32.0-36.0); MEAN CELL VOLUME 83.2 fl (80-96); MEAN PLT VOLUME 9.6 fl (7.5-11.1); PLATELET COUNT 269 10^3/uL (134-434); RBC 4.82 M/mm3 (3.60-5.2); RDW 14.7 % (11.6-15.6); WHITE BLOOD COUNT 14.8 K/mm3 (4.0-10.0)
[2021-08-10 10:18] LABS: CALCIUM 8.9 mg/dL (8.5-10.1)
[2021-08-10 10:19] LABS: BLOOD UREA NITROGEN 15.2 mg/dL (7-18)
[2021-08-10 10:21] LABS: CREATININE 0.3 mg/dL (0.55-1.3)
[2021-08-10] MEDS: MULTIVIT-MINERALS ORAL LIQUID GT SCH (11:04)
[2021-08-10] MEDS: BACLOFEN 10 MG TABLET (FP) GT SCH ×2 (11:04→21:39)
[2021-08-10] MEDS: ENOXAPARIN NA (PORCINE) 30 MG/0.3 ML DISP.SYRIN SQ SCH (11:05)
[2021-08-10] MEDS: FAMOTIDINE 40 MG/5 ML ORAL SUSPENSION NGT SCH ×2 (11:05→21:38)
[2021-08-10] MEDS: BUDESONIDE/FORMETEROL FUMARATE 80/4.5 mcg INHALER IH SCH ×2 (11:05→21:36)
[2021-08-10] MEDS: ASCORBIC ACID 250 MG TABLET (FP) PO SCH (11:05)
[2021-08-10] MEDS: MONTELUKAST NA 10 MG TABLET GT SCH (21:39)
[2021-08-10] MEDS: PHENobarbital 30 MG TABLET GT SCH (21:39)
[2021-08-11] MEDS: methylPREDNISolone NA SUCC 40 MG/1 ML VIAL IVPUSH SCH ×3 (01:18→21:58)
[2021-08-11 09:11] LABS: HEMATOCRIT 38.4 % (32.4-45.2); HEMOGLOBIN 12.7 GM/dL (10.7-15.3); MCH 27.5 pg (25.7-33.7); MCHC 33.1 g/dl (32.0-36.0); MEAN PLT VOLUME 9.2 fl (7.5-11.1); PLATELET COUNT 258 10^3/uL (134-434); RBC 4.63 M/mm3 (3.60-5.2); RDW 14.6 % (11.6-15.6)
[2021-08-11 09:26] LABS: ALBUMIN 2.7 g/dl (3.4-5.0); BLOOD UREA NITROGEN 16.5 mg/dL (7-18)
[2021-08-11 09:29] LABS: CREATININE 0.3 mg/dL (0.55-1.3)
[2021-08-11 09:31] LABS: BILIRUBIN,TOTAL 0.2 mg/dL (0.2-1); TOT PROT 6.4 g/dl (6.4-8.2)
[2021-08-11] MEDS: ALBUTEROL SO4 HFA INHALER IH SCH ×4 (10:29→20:08)
[2021-08-11] MEDS: MULTIVIT-MINERALS ORAL LIQUID GT SCH (10:30)
[2021-08-11] MEDS: BACLOFEN 10 MG TABLET (FP) GT SCH ×2 (10:30→21:21)
[2021-08-11] MEDS: ASCORBIC ACID 250 MG TABLET (FP) PO SCH (10:30)
[2021-08-11] MEDS: BUDESONIDE/FORMETEROL FUMARATE 80/4.5 mcg INHALER IH SCH ×2 (10:30→21:19)
[2021-08-11] MEDS: FAMOTIDINE 40 MG/5 ML ORAL SUSPENSION NGT SCH ×2 (10:30→21:21)
[2021-08-11] MEDS: ENOXAPARIN NA (PORCINE) 30 MG/0.3 ML DISP.SYRIN SQ SCH (10:30)
[2021-08-11] MEDS ORDERED: AMPICILLIN NA/SULBACTAM NA 1.5 GM VIAL ONE (17:48)
[2021-08-11] MEDS ORDERED: SODIUM CHLORIDE 100 ML IVPB ONE (17:49)
[2021-08-11] MEDS: AMPICILLIN NA/SULBACTAM NA 1.5 GM in SODIUM CHLORIDE 100 ML IVPB SCH (17:52)
[2021-08-11] MEDS: BACITRACIN/POLYMYXIN B SULFATE 15 GM TUBE TP SCH (18:56)
[2021-08-11] MEDS: MONTELUKAST NA 10 MG TABLET GT SCH (21:21)
[2021-08-11] MEDS: PHENobarbital 30 MG TABLET GT SCH (21:21)
[2021-08-12] MEDS ORDERED: SODIUM CHLORIDE 100 ML IVPB ONE ×3 (00:54→18:19)
[2021-08-12] MEDS ORDERED: AMPICILLIN NA/SULBACTAM NA 1.5 GM VIAL ONE ×3 (00:54→18:19)
[2021-08-12] MEDS: AMPICILLIN NA/SULBACTAM NA 1.5 GM in SODIUM CHLORIDE 100 ML IVPB SCH ×3 (01:05→18:22)
[2021-08-12] MEDS: ALBUTEROL SO4 HFA INHALER IH SCH ×4 (10:56→21:40)
[2021-08-12] MEDS: MULTIVIT-MINERALS ORAL LIQUID GT SCH (10:56)
[2021-08-12] MEDS: BACLOFEN 10 MG TABLET (FP) GT SCH ×2 (10:56→21:39)
[2021-08-12] MEDS: ENOXAPARIN NA (PORCINE) 30 MG/0.3 ML DISP.SYRIN SQ SCH (10:57)
[2021-08-12] MEDS: BACITRACIN/POLYMYXIN B SULFATE 15 GM TUBE TP SCH (10:57)
[2021-08-12] MEDS: BUDESONIDE/FORMETEROL FUMARATE 80/4.5 mcg INHALER IH SCH ×2 (10:57→22:15)
[2021-08-12] MEDS: FAMOTIDINE 40 MG/5 ML ORAL SUSPENSION NGT SCH ×2 (10:57→22:15)
[2021-08-12] MEDS: ASCORBIC ACID 250 MG TABLET (FP) PO SCH (11:03)
[2021-08-12] MEDS: methylPREDNISolone NA SUCC 40 MG/1 ML VIAL IVPUSH SCH ×2 (11:03→21:39)
[2021-08-12] MEDS: PHENobarbital 30 MG TABLET GT SCH (21:39)
[2021-08-12] MEDS: MONTELUKAST NA 10 MG TABLET GT SCH (21:39)
[2021-08-13] MEDS ORDERED: AMPICILLIN NA/SULBACTAM NA 1.5 GM VIAL ONE ×2 (03:37→09:39)
[2021-08-13] MEDS ORDERED: SODIUM CHLORIDE 100 ML IVPB ONE ×2 (03:37→09:39)
[2021-08-13] MEDS: AMPICILLIN NA/SULBACTAM NA 1.5 GM in SODIUM CHLORIDE 100 ML IVPB SCH ×2 (03:47→09:54)
[2021-08-13] MEDS: methylPREDNISolone NA SUCC 40 MG/1 ML VIAL IVPUSH SCH (09:54)
[2021-08-13] MEDS: ENOXAPARIN NA (PORCINE) 30 MG/0.3 ML DISP.SYRIN SQ SCH (09:56)
[2021-08-13] MEDS: BACLOFEN 10 MG TABLET (FP) GT SCH ×2 (09:57→21:47)
[2021-08-13] MEDS: ASCORBIC ACID 250 MG TABLET (FP) PO SCH (09:57)
[2021-08-13] MEDS: FAMOTIDINE 40 MG/5 ML ORAL SUSPENSION NGT SCH ×2 (09:59→21:47)
[2021-08-13] MEDS: MULTIVIT-MINERALS ORAL LIQUID GT SCH (09:59)
[2021-08-13] MEDS: BACITRACIN/POLYMYXIN B SULFATE 15 GM TUBE TP SCH (10:05)
[2021-08-13] MEDS: ALBUTEROL SO4 HFA INHALER IH SCH ×4 (10:05→20:47)
[2021-08-13] MEDS: BUDESONIDE/FORMETEROL FUMARATE 80/4.5 mcg INHALER IH SCH ×2 (10:06→21:47)
[2021-08-13 11:27] LABS: HEMATOCRIT 40.9 % (32.4-45.2); HEMOGLOBIN 12.9 GM/dL (10.7-15.3); MCH 26.3 pg (25.7-33.7); MCHC 31.5 g/dl (32.0-36.0); MEAN CELL VOLUME 83.6 fl (80-96); RBC 4.89 M/mm3 (3.60-5.2); WHITE BLOOD COUNT 13.4 K/mm3 (4.0-10.0)
[2021-08-13 11:28] LABS: MEAN PLT VOLUME 9.4 fl (7.5-11.1); PLATELET COUNT 272 10^3/uL (134-434)
[2021-08-13 11:46] LABS: CALCIUM 8.7 mg/dL (8.5-10.1)
[2021-08-13 11:47] LABS: BLOOD UREA NITROGEN 13.3 mg/dL (7-18); MAGNESIUM 2.2 mg/dL (1.8-2.4)
[2021-08-13 11:50] LABS: CREATININE 0.4 mg/dL (0.55-1.3); PHOSPHOROUS 3.6 mg/dL (2.5-4.9)
[2021-08-13] MEDS ORDERED: DEXTROSE 5%-WATER - 50 ML IVPB ONE (17:35)
[2021-08-13] MEDS ORDERED: PIPERACILLIN/TAZOBACTAM 3.375 GM VIAL IVPB ONE (17:35)
[2021-08-13] MEDS: PIPERACILLIN/TAZOB 3.375 GM 3.375 GM in DEXTROSE 5%-WATER - 50 ML IVPB SCH (17:58)
[2021-08-13] MEDS ORDERED: PIPERACILLIN/TAZOB 3.375 GM 3.375 GM in DEXTROSE 5%-WATER - 50 ML IVPB SCH (18:00)
[2021-08-13] MEDS: PHENobarbital 30 MG TABLET GT SCH (21:47)
[2021-08-13] MEDS: MONTELUKAST NA 10 MG TABLET GT SCH (21:47)
[2021-08-14] MEDS ORDERED: PIPERACILLIN/TAZOBACTAM 3.375 GM VIAL IVPB ONE ×2 (01:13→09:25)
[2021-08-14] MEDS ORDERED: DEXTROSE 5%-WATER - 50 ML IVPB ONE ×2 (01:13→09:25)
[2021-08-14] MEDS: PIPERACILLIN/TAZOB 3.375 GM 3.375 GM in DEXTROSE 5%-WATER - 50 ML IVPB SCH ×2 (01:17→09:57)
[2021-08-14] MEDS: ALBUTEROL SO4 HFA INHALER IH SCH ×4 (08:55→22:04)
[2021-08-14] MEDS: ENOXAPARIN NA (PORCINE) 30 MG/0.3 ML DISP.SYRIN SQ SCH (09:52)
[2021-08-14] MEDS: MULTIVIT-MINERALS ORAL LIQUID GT SCH (09:53)
[2021-08-14] MEDS: FAMOTIDINE 40 MG/5 ML ORAL SUSPENSION NGT SCH ×2 (09:53→22:03)
[2021-08-14] MEDS: ASCORBIC ACID 250 MG TABLET (FP) PO SCH (09:54)
[2021-08-14] MEDS: BACLOFEN 10 MG TABLET (FP) GT SCH ×2 (09:54→22:03)
[2021-08-14] MEDS: predniSONE 20 MG TABLET (UD) PO SCH (09:55)
[2021-08-14] MEDS: BACITRACIN/POLYMYXIN B SULFATE 15 GM TUBE TP SCH (09:55)
[2021-08-14] MEDS: BUDESONIDE/FORMETEROL FUMARATE 80/4.5 mcg INHALER IH SCH ×2 (09:56→22:04)
[2021-08-14 12:42] LABS: BASO % 0.7 % (0-2.0); EOS % 3.2 % (0-4.5); HEMATOCRIT 39.8 % (32.4-45.2); HEMOGLOBIN 12.8 GM/dL (10.7-15.3); LYMPH % 27.8 % (8-40); MCHC 32.1 g/dl (32.0-36.0); MEAN CELL VOLUME 83.9 fl (80-96); MEAN PLT VOLUME 9.9 fl (7.5-11.1); MONO % 9.9 % (3.8-10.2); NEUT % 58.4 % (42.8-82.8); PLATELET COUNT 246 10^3/uL (134-434); RBC 4.75 M/mm3 (3.60-5.2); RDW 14.7 % (11.6-15.6); WHITE BLOOD COUNT 9.3 K/mm3 (4.0-10.0)
[2021-08-14 12:55] LABS: BLOOD UREA NITROGEN 15.8 mg/dL (7-18); CALCIUM 8.9 mg/dL (8.5-10.1)
[2021-08-14 12:59] LABS: CREATININE 0.3 mg/dL (0.55-1.3)
[2021-08-14] MEDS: PHENobarbital 30 MG TABLET GT SCH (22:03)
[2021-08-14] MEDS: MONTELUKAST NA 10 MG TABLET GT SCH (22:03)
[2021-08-15 09:24] LABS: HEMATOCRIT 39.1 % (32.4-45.2); HEMOGLOBIN 13.1 GM/dL (10.7-15.3); MCH 27.5 pg (25.7-33.7); MCHC 33.5 g/dl (32.0-36.0); MEAN CELL VOLUME 82.1 fl (80-96); MEAN PLT VOLUME 9.4 fl (7.5-11.1); PLATELET COUNT 251 10^3/uL (134-434); RBC 4.76 M/mm3 (3.60-5.2); RDW 14.4 % (11.6-15.6); WHITE BLOOD COUNT 16.7 K/mm3 (4.0-10.0)
[2021-08-15] MEDS ORDERED: SULFAMETHOXAZOLE/TMP 200MG-40MG/5ML GT SCH (10:00)
[2021-08-15 10:06] LABS: BLOOD UREA NITROGEN 16.2 mg/dL (7-18); CALCIUM 9.1 mg/dL (8.5-10.1)
[2021-08-15 10:13] LABS: CREATININE 0.3 mg/dL (0.55-1.3)
[2021-08-15] MEDS: FAMOTIDINE 40 MG/5 ML ORAL SUSPENSION NGT SCH (10:38)
[2021-08-15] MEDS: ALBUTEROL SO4 HFA INHALER IH SCH ×2 (10:38→13:36)
[2021-08-15] MEDS: ENOXAPARIN NA (PORCINE) 30 MG/0.3 ML DISP.SYRIN SQ SCH (10:41)
[2021-08-15] MEDS: MULTIVIT-MINERALS ORAL LIQUID GT SCH (10:41)
[2021-08-15] MEDS: BACLOFEN 10 MG TABLET (FP) GT SCH (10:41)
[2021-08-15] MEDS: predniSONE 20 MG TABLET (UD) PO SCH (10:41)
[2021-08-15] MEDS: BUDESONIDE/FORMETEROL FUMARATE 80/4.5 mcg INHALER IH SCH (10:42)
[2021-08-15] MEDS: ASCORBIC ACID 250 MG TABLET (FP) PO SCH (10:42)
[2021-08-15] MEDS: BACITRACIN/POLYMYXIN B SULFATE 15 GM TUBE TP SCH (10:42)
[2021-08-15 11:07] LABS: SARS-CoV-2 NAA Not Detected (Not Detected)
[2021-08-15 14:56] VITALS: BP 125/75; PULSE 74; TEMP 97.8
== END 2021-08-15 18:34 | DRG 137 ==
LOC: JER 21:09 → JERBED 08-04 00:07 → J6S 08-04 05:55
PROVIDERS: ADMIT Hospitalist; ATTEND Internal Medicine
PROC: XW033E5 Introduction of Remdesivir Anti-infective into Peripheral Vein, Percutaneous Approach, New Technology Group 5 (ICD-10-PCS; principal; 2021-08-04)
PROC: 3E0G76Z Introduction of Nutritional Substance into Upper GI, Via Natural or Artificial Opening (ICD-10-PCS; 2021-08-04)
DX: U07.1 COVID-19 (principal); J12.82 Pneumonia due to coronavirus disease 2019; J96.01 Acute respiratory failure with hypoxia; K92.0 Hematemesis; R53.2 Functional quadriplegia; F72 Severe intellectual disabilities; J45.901 Unspecified asthma with (acute) exacerbation; Q02 Microcephaly; Z93.1 Gastrostomy status; D72.829 Elevated white blood cell count, unspecified; G40.909 Epilepsy, unspecified, not intractable, without status epilepticus; J98.11 Atelectasis; K21.9 Gastro-esophageal reflux disease without esophagitis; L03.90 Cellulitis, unspecified; Z74.01 Bed confinement status; R64 Cachexia; G80.9 Cerebral palsy, unspecified; Z68.1 Body mass index [BMI] 19.9 or less, adult
CPT/HCPCS: 36415; 36600; 71045-TC-FY; 71260-TC; 74177-TC; 80048; 80053; 81003; 82553; 82728; 82803; 83605; 83615; 83735; 83880; 84100; 85025; 85027; 85610; 85651; 85730; 86140; 87040; 87070; 87077; 87086; 87186; 87205; 87804; 87807; 93005; 93010; 94640; 99285-25; C9399; C9803; J0475; J1100; Q9967; U0003; U0005

== ENCOUNTER 2021-09-07 18:54 | Inpatient (IN) | payer OTHER ==
[2021-09-07] MEDS ORDERED: VANCOMYCIN 1 GM in D5W (PRE-DOCKED) 1,000 MG/250 ML IVPB ONE (22:15)
[2021-09-07] MEDS ORDERED: SODIUM CHLORIDE 0.9% 500 ML INFUS.BAG IV ONE (22:15)
[2021-09-07] MEDS ORDERED: PIPERACILLIN/TAZOB 3.375 GM 3.375 GM in DEXTROSE 5%-WATER - 50 ML IVPB ONE (22:15)
[2021-09-07 22:24] LABS: BASO % 0.1 % (0-2.0); HEMATOCRIT 46.8 % (32.4-45.2); HEMOGLOBIN 15.6 GM/dL (10.7-15.3); LYMPH % 3.6 % (8-40); MCHC 33.4 g/dl (32.0-36.0); MEAN PLT VOLUME 9.6 fl (7.5-11.1); MONO % 9.3 % (3.8-10.2); PLATELET COUNT 342 10^3/uL (134-434); RBC 5.78 M/mm3 (3.60-5.2); RDW 16.1 % (11.6-15.6); WHITE BLOOD COUNT 13.5 K/mm3 (4.0-10.0)
[2021-09-07] MEDS ORDERED: ACETAMINOPHEN 1000 MG/100 ML BAG IVPB ONE (22:24)
[2021-09-07 23:10] LABS: ALBUMIN 3.1 g/dl (3.4-5.0); ALK PHOS 105 U/L (45-117); ANION GAP 9 MMOL/L (8-16); BILIRUBIN,TOTAL 0.6 mg/dL (0.2-1); BLOOD UREA NITROGEN 26.9 mg/dL (7-18); CALCIUM 9.4 mg/dL (8.5-10.1); CHLORIDE 94 mmol/L (98-107); CO2 22 mmol/L (21-32); CREATININE 0.7 mg/dL (0.55-1.3); GLUCOSE,RANDOM 85 mg/dL (74-106); SGOT/AST 158 U/L (15-37); SGPT/ALT 33 U/L (13-61); SODIUM 125 mmol/L (136-145); TOT PROT 9.1 g/dl (6.4-8.2)
[2021-09-07] MEDS ORDERED: VANCOMYCIN 1 GRAM (PRE-DOCKED) 1,000 MG/250 ML BAG IVPB ONE (23:13)
[2021-09-07] MEDS ORDERED: PIPERACILLIN/TAZOB 3.375 GM 3.375 GM/50 ML BAG IVPB ONE (23:13)
[2021-09-08 00:02] LABS: ACTIVATED PTT 39.4 SECONDS (25.2-36.5); INR 1.22 (0.83-1.09); PROTHROMBIN TIME (PATIENT) 14.1 SEC (9.7-13.0)
[2021-09-08] MEDS ORDERED: ALBUTEROL SO4 2.5/IPRATROPIUM 0.5 INH SOL 3 ML VIAL.NEB. NEB ONE ×2 (00:02→17:09)
[2021-09-08] MEDS ORDERED: LACTATED RINGERS SOLUTION 1000 ML INFUS.BAG IV ONE (00:02)
[2021-09-08 00:09] LABS: CALCIUM 8.7 mg/dL (8.5-10.1)
[2021-09-08 00:10] LABS: ALBUMIN 2.9 g/dl (3.4-5.0); BLOOD UREA NITROGEN 26.2 mg/dL (7-18)
[2021-09-08 00:13] LABS: CREATININE 0.6 mg/dL (0.55-1.3)
[2021-09-08 00:15] LABS: BILIRUBIN,TOTAL 0.3 mg/dL (0.2-1)
[2021-09-08] MEDS: ALBUTEROL SO4 2.5/IPRATROPIUM 0.5 INH SOL 3 ML VIAL.NEB. NEB SCH ×4 (00:15→21:12)
[2021-09-08 00:26] LABS: TOT PROT 6.7 g/dl (6.4-8.2)
[2021-09-08] MEDS ORDERED: ONDANSETRON 4 MG/2 ML VIAL IVPUSH PRN (00:48)
[2021-09-08] MEDS ORDERED: BISACODYL 10 MG SUPP.RECT RC PRN (00:53)
[2021-09-08] MEDS ORDERED: LACTATED RINGERS SOLUTION 1,000 ML IV SCH ×2 (01:00→15:11)
[2021-09-08] MEDS ORDERED: MAGNESIUM HYDROX 2400MG/30ML ORAL SUSPENSION 30 ML CUP PO SCH (01:00)
[2021-09-08] MEDS ORDERED: MEROPENEM 1 GM in DEXTROSE 5%-WATER 100 ML IVPB ONE (01:04)
[2021-09-08] MEDS ORDERED: SODIUM CHLORIDE 1,000 ML IV SCH (01:30)
[2021-09-08] MEDS ORDERED: VANCOMYCIN 1 GRAM (PRE-DOCKED) 1,000 MG/250 ML BAG IVPB ONE (01:33)
[2021-09-08 02:32] LABS: EPI CELLS >36 /uL (0-25.1); HYALINE CASTS 22 /uL (0-3.1); URINE APPEARANCE CLOUDY; URINE BACTERIA 92 /uL (0-1359); URINE BILIRUBIN NEGATIVE (NEGATIVE); URINE COLOR YELLOW; URINE GLUCOSE (UA) NEGATIVE (NEGATIVE); URINE KETONE 1+ (NEGATIVE); URINE LEUK ESTERASE NEGATIVE (NEGATIVE); URINE NITRITE NEGATIVE (NEGATIVE); URINE PROTEIN 1+ (NEGATIVE)
[2021-09-08] MEDS ORDERED: MEROPENEM 1 GM VIAL (RESTRICTED TO ID) IVPB ONE ×3 (04:11→17:25)
[2021-09-08] MEDS ORDERED: PIPERACILLIN/TAZOB 3.375 GM 3.375 GM in DEXTROSE 5%-WATER - 50 ML IVPB SCH (05:00)
[2021-09-08] MEDS ORDERED: BACLOFEN 10 MG TABLET (FP) ONE (08:09)
[2021-09-08] MEDS ORDERED: ENOXAPARIN NA (PORCINE) 40 MG/0.4 ML DISP.SYRIN SQ ONE ×2 (08:09→08:16)
[2021-09-08] MEDS ORDERED: ACETAMINOPHEN 1000 MG/100 ML BAG IVPB PRN ×3 (08:40→09:15)
[2021-09-08 09:05] LABS: BASO % 0.3 % (0-2.0); EOS % 0.4 % (0-4.5); HEMOGLOBIN 13.7 GM/dL (10.7-15.3); MCHC 32.7 g/dl (32.0-36.0); MEAN CELL VOLUME 82.4 fl (80-96); MEAN PLT VOLUME 8.9 fl (7.5-11.1); MONO % 11.5 % (3.8-10.2); NEUT % 75.8 % (42.8-82.8); PLATELET COUNT 284 10^3/uL (134-434); RBC 5.09 M/mm3 (3.60-5.2); WHITE BLOOD COUNT 11.8 K/mm3 (4.0-10.0)
[2021-09-08 09:29] LABS: ALBUMIN 3.3 g/dl (3.4-5.0); BLOOD UREA NITROGEN 22.5 mg/dL (7-18); CALCIUM 9.2 mg/dL (8.5-10.1); MAGNESIUM 2.5 mg/dL (1.8-2.4)
[2021-09-08 09:32] LABS: CREATININE 0.7 mg/dL (0.55-1.3); PHOSPHOROUS 3.3 mg/dL (2.5-4.9)
[2021-09-08 09:34] LABS: BILIRUBIN,TOTAL 0.4 mg/dL (0.2-1); TOT PROT 7.2 g/dl (6.4-8.2)
[2021-09-08] MEDS ORDERED: VITAMIN D2 GT SCH (10:00)
[2021-09-08] MEDS ORDERED: VANCOMYCIN 1 GM in D5W (PRE-DOCKED) 1,000 MG/250 ML IVPB SCH (10:00)
[2021-09-08] MEDS ORDERED: MEROPENEM 1 GM in DEXTROSE 5%-WATER 100 ML IVPB SCH (10:00)
[2021-09-08] MEDS ORDERED: CALCIUM CITRATE GT SCH (10:00)
[2021-09-08] MEDS ORDERED: [UNRECOGNIZED DRUG - OTHER] GT SCH (10:00)
[2021-09-08] MEDS: BACLOFEN 10 MG TABLET (FP) GT SCH (11:00)
[2021-09-08] MEDS: ENOXAPARIN NA (PORCINE) 40 MG/0.4 ML DISP.SYRIN SQ SCH (11:30)
[2021-09-08] MEDS: FAMOTIDINE 40 MG/5 ML ORAL SUSPENSION NGT SCH (11:30)
[2021-09-08 13:30] LABS: URINE RBC 369.7 /uL (0-23.9); URINE WBC 75.6 /uL (0-25.8)
[2021-09-08] MEDS ORDERED: ALBUTEROL SO4 HFA INHALER IH ONE (16:06)
[2021-09-08] MEDS: BUDESONIDE/FORMETEROL FUMARATE 80/4.5 mcg INHALER IH SCH (16:24)
[2021-09-08] MEDS ORDERED: ALBUTEROL SO4 0.083% IH SOL 2.5 MG/3 ML VIAL.NEB. NEB ONE ×2 (17:09→17:15)
[2021-09-08] MEDS ORDERED: DEXTROSE 5%-WATER 100 ML IVPB ONE (17:26)
[2021-09-08] MEDS: MEROPENEM 1 GM in DEXTROSE 5%-WATER 100 ML IVPB SCH (17:34)
[2021-09-08] MEDS: methylPREDNISolone NA SUCC 40 MG/1 ML VIAL IVPUSH SCH (17:34)
[2021-09-08] MEDS ORDERED: ALBUTEROL SO4 0.083% IH SOL 2.5 MG/3 ML VIAL.NEB. NEB PRN (19:38)
[2021-09-08] MEDS ORDERED: PATIENT'S OWN MEDICATION (NON-FORMULARY) (Phenobarbital [Phenobarbital] 64.8 MG Tablet) GT SCH (22:00)
[2021-09-08] MEDS: MONTELUKAST NA 10 MG TABLET GT SCH (22:15)
[2021-09-08] MEDS: CHLORHEXIDINE GLUCONATE 4% CLEANSER FOR DECOLONIZATION TP SCH (22:20)
[2021-09-08] MEDS: MUPIROCIN 2% TOPICAL OINTMENT FOR DECOLONIZATION NS SCH (22:20)
[2021-09-08] MEDS: PHENobarbital 30 MG TABLET GT SCH (22:20)
[2021-09-09] MEDS: BUDESONIDE/FORMETEROL FUMARATE 80/4.5 mcg INHALER IH SCH ×3 (00:12→22:44)
[2021-09-09] MEDS ORDERED: DEXTROSE 50%-WATER - 25 GM/50 ML VIAL IVPUSH PRN (00:27)
[2021-09-09] MEDS: DEXTROSE 5%-NORMAL SALINE 1,000 ML IV SCH (00:44)
[2021-09-09] MEDS ORDERED: DEXTROSE 10%-WATER 500 ML INFUS.BAG IV ONE (01:03)
[2021-09-09] MEDS ORDERED: DEXTROSE 5%-WATER 100 ML IVPB ONE ×3 (01:22→16:57)
[2021-09-09] MEDS ORDERED: MEROPENEM 1 GM VIAL (RESTRICTED TO ID) IVPB ONE ×3 (01:22→16:57)
[2021-09-09] MEDS: MEROPENEM 1 GM in DEXTROSE 5%-WATER 100 ML IVPB SCH ×3 (01:25→17:01)
[2021-09-09] MEDS: methylPREDNISolone NA SUCC 40 MG/1 ML VIAL IVPUSH SCH ×3 (01:25→17:01)
[2021-09-09] MEDS: FAMOTIDINE 40 MG/5 ML ORAL SUSPENSION NGT SCH ×4 (02:52→22:43)
[2021-09-09] MEDS: BACLOFEN 10 MG TABLET (FP) GT SCH ×4 (02:52→22:43)
[2021-09-09] MEDS: VANCOMYCIN/WATER FOR INJ (PEG) 750 MG/150 ML BAG IVPB SCH ×3 (03:35→14:35)
[2021-09-09 06:54] LABS: BASO % 0.4 % (0-2.0); EOS % 0.1 % (0-4.5); HEMATOCRIT 34.4 % (32.4-45.2); HEMOGLOBIN 11.4 GM/dL (10.7-15.3); LYMPH % 5.8 % (8-40); MCH 27.4 pg (25.7-33.7); MCHC 33.2 g/dl (32.0-36.0); MEAN CELL VOLUME 82.5 fl (80-96); MEAN PLT VOLUME 9.1 fl (7.5-11.1); MONO % 4.5 % (3.8-10.2); NEUT % 89.2 % (42.8-82.8); PLATELET COUNT 222 10^3/uL (134-434); RBC 4.17 M/mm3 (3.60-5.2); RDW 15.6 % (11.6-15.6); WHITE BLOOD COUNT 8.5 K/mm3 (4.0-10.0)
[2021-09-09 07:09] LABS: BLOOD UREA NITROGEN 10.5 mg/dL (7-18); MAGNESIUM 1.9 mg/dL (1.8-2.4)
[2021-09-09 07:12] LABS: CREATININE 0.3 mg/dL (0.55-1.3); PHOSPHOROUS 1.5 mg/dL (2.5-4.9)
[2021-09-09 07:13] LABS: BILIRUBIN,TOTAL 0.2 mg/dL (0.2-1); TOT PROT 5.5 g/dl (6.4-8.2)
[2021-09-09 07:26] LABS: ALBUMIN 2.4 g/dl (3.4-5.0); CALCIUM 7.3 mg/dL (8.5-10.1)
[2021-09-09] MEDS: ALBUTEROL SO4 2.5/IPRATROPIUM 0.5 INH SOL 3 ML VIAL.NEB. NEB SCH ×4 (08:25→20:11)
[2021-09-09] MEDS: ENOXAPARIN NA (PORCINE) 40 MG/0.4 ML DISP.SYRIN SQ SCH (09:03)
[2021-09-09] MEDS: MUPIROCIN 2% TOPICAL OINTMENT FOR DECOLONIZATION NS SCH ×2 (10:45→22:42)
[2021-09-09] MEDS ORDERED: MAGNESIUM SULF 50% (8.12 MEQ/2 ML-1 GM VIAL) IVPB ONE (10:52)
[2021-09-09] MEDS ORDERED: MAGNESIUM CITRATE 300 ML BOTTLE GT ONE (10:52)
[2021-09-09] MEDS ORDERED: POTASSIUM PHOSPHATE 30 MM in DEXTROSE 5%-WATER - 250 ML IVPB ONE (12:00)
[2021-09-09] MEDS: POLYETHYLENE GLYCOL (HEALTHYLAX) 3350 17 GM PACKET GT SCH ×2 (13:29→22:42)
[2021-09-09 13:36] VITALS: BMI 25.4
[2021-09-09 21:06] LABS: SARS-CoV-2 NAA Not Detected (Not Detected)
[2021-09-09] MEDS: CHLORHEXIDINE GLUCONATE 4% CLEANSER FOR DECOLONIZATION TP SCH (22:42)
[2021-09-09] MEDS: PHENobarbital 30 MG TABLET GT SCH (22:43)
[2021-09-09] MEDS: MONTELUKAST NA 10 MG TABLET GT SCH (22:44)
[2021-09-10] MEDS: DEXTROSE 5%-NORMAL SALINE 1,000 ML IV SCH (00:30)
[2021-09-10] MEDS ORDERED: MEROPENEM 1 GM VIAL (RESTRICTED TO ID) IVPB ONE ×2 (01:39→09:29)
[2021-09-10] MEDS ORDERED: DEXTROSE 5%-WATER 100 ML IVPB ONE ×2 (01:40→09:30)
[2021-09-10] MEDS: MEROPENEM 1 GM in DEXTROSE 5%-WATER 100 ML IVPB SCH ×2 (01:56→09:04)
[2021-09-10] MEDS: methylPREDNISolone NA SUCC 40 MG/1 ML VIAL IVPUSH SCH (02:18)
[2021-09-10] MEDS: VANCOMYCIN/WATER FOR INJ (PEG) 750 MG/150 ML BAG IVPB SCH (03:09)
[2021-09-10] MEDS: POLYETHYLENE GLYCOL (HEALTHYLAX) 3350 17 GM PACKET GT SCH ×3 (06:42→22:54)
[2021-09-10] MEDS: ALBUTEROL SO4 2.5/IPRATROPIUM 0.5 INH SOL 3 ML VIAL.NEB. NEB SCH ×4 (07:40→20:24)
[2021-09-10 08:04] LABS: BASO % 0.1 % (0-2.0); EOS % 0.3 % (0-4.5); HEMATOCRIT 37.5 % (32.4-45.2); HEMOGLOBIN 12.4 GM/dL (10.7-15.3); LYMPH % 7.4 % (8-40); MCH 27.4 pg (25.7-33.7); MONO % 3.3 % (3.8-10.2); NEUT % 88.9 % (42.8-82.8); PLATELET COUNT 257 10^3/uL (134-434); RBC 4.52 M/mm3 (3.60-5.2); RDW 15.7 % (11.6-15.6); WHITE BLOOD COUNT 8.4 K/mm3 (4.0-10.0)
[2021-09-10 08:59] LABS: CALCIUM 7.9 mg/dL (8.5-10.1)
[2021-09-10 09:00] LABS: ALBUMIN 2.8 g/dl (3.4-5.0); BLOOD UREA NITROGEN 3.6 mg/dL (7-18); MAGNESIUM 2.8 mg/dL (1.8-2.4)
[2021-09-10 09:02] LABS: CREATININE 0.2 mg/dL (0.55-1.3)
[2021-09-10 09:03] LABS: PHOSPHOROUS 1.8 mg/dL (2.5-4.9)
[2021-09-10 09:04] LABS: BILIRUBIN,TOTAL 0.2 mg/dL (0.2-1); TOT PROT 6.4 g/dl (6.4-8.2)
[2021-09-10] MEDS: MUPIROCIN 2% TOPICAL OINTMENT FOR DECOLONIZATION NS SCH (09:07)
[2021-09-10] MEDS: BACLOFEN 10 MG TABLET (FP) GT SCH ×2 (09:09→22:53)
[2021-09-10] MEDS ORDERED: POTASSIUM PHOSPHATE 30 MM in DEXTROSE 5%-WATER - 250 ML IVPB ONE (09:10)
[2021-09-10] MEDS: FAMOTIDINE 40 MG/5 ML ORAL SUSPENSION NGT SCH ×2 (10:10→22:54)
[2021-09-10] MEDS: ENOXAPARIN NA (PORCINE) 40 MG/0.4 ML DISP.SYRIN SQ SCH (11:10)
[2021-09-10] MEDS: BUDESONIDE/FORMETEROL FUMARATE 80/4.5 mcg INHALER IH SCH ×2 (11:11→22:54)
[2021-09-10] MEDS ORDERED: MAGNESIUM HYDROX 2400MG/30ML ORAL SUSPENSION 30 ML CUP PO SCH (13:18)
[2021-09-10] MEDS ORDERED: BISACODYL 10 MG SUPP.RECT RC PRN (13:18)
[2021-09-10] MEDS ORDERED: MAGNESIUM HYDROX 2400MG/30ML ORAL SUSPENSION 30 ML CUP PO PRN (15:17)
[2021-09-10] MEDS ORDERED: PIPERACILLIN/TAZOBACTAM 3.375 GM VIAL IVPB ONE (17:57)
[2021-09-10] MEDS ORDERED: DEXTROSE 5%-WATER - 50 ML IVPB ONE (17:58)
[2021-09-10] MEDS ORDERED: PIPERACILLIN/TAZOB 3.375 GM 3.375 GM in DEXTROSE 5%-WATER - 50 ML IVPB SCH (18:00)
[2021-09-10] MEDS ORDERED: PIPERACILLIN/TAZOB 2.25 GM 2.25 GM in DEXTROSE 5%-WATER - 50 ML IVPB SCH (18:00)
[2021-09-10] MEDS: PIPERACILLIN/TAZOB 3.375 GM 3.375 GM in DEXTROSE 5%-WATER - 50 ML IVPB SCH (18:28)
[2021-09-10] MEDS: MINERAL OIL/PET HY-PHL TOPICAL OINTMENT 454 GM JAR TP SCH (18:28)
[2021-09-10] MEDS: PHENobarbital 30 MG TABLET GT SCH (22:53)
[2021-09-10] MEDS: MONTELUKAST NA 10 MG TABLET GT SCH (22:53)
[2021-09-11] MEDS ORDERED: PIPERACILLIN/TAZOBACTAM 3.375 GM VIAL IVPB ONE ×3 (02:41→18:28)
[2021-09-11] MEDS ORDERED: DEXTROSE 5%-WATER - 50 ML IVPB ONE ×3 (02:41→18:28)
[2021-09-11] MEDS: PIPERACILLIN/TAZOB 3.375 GM 3.375 GM in DEXTROSE 5%-WATER - 50 ML IVPB SCH ×3 (02:55→18:38)
[2021-09-11] MEDS: POLYETHYLENE GLYCOL (HEALTHYLAX) 3350 17 GM PACKET GT SCH ×2 (05:25→13:07)
[2021-09-11 08:39] LABS: BASO % 0.3 % (0-2.0); HEMATOCRIT 40.1 % (32.4-45.2); LYMPH % 14.2 % (8-40); MCH 27.2 pg (25.7-33.7); MCHC 32.3 g/dl (32.0-36.0); MEAN CELL VOLUME 84.2 fl (80-96); MEAN PLT VOLUME 9.1 fl (7.5-11.1); MONO % 11.5 % (3.8-10.2); PLATELET COUNT 286 10^3/uL (134-434); RBC 4.76 M/mm3 (3.60-5.2); WHITE BLOOD COUNT 8.8 K/mm3 (4.0-10.0)
[2021-09-11 09:12] LABS: ALBUMIN 2.9 g/dl (3.4-5.0); BLOOD UREA NITROGEN 6.5 mg/dL (7-18); CALCIUM 8.9 mg/dL (8.5-10.1); MAGNESIUM 2.6 mg/dL (1.8-2.4)
[2021-09-11 09:15] LABS: CREATININE 0.4 mg/dL (0.55-1.3); PHOSPHOROUS 2.2 mg/dL (2.5-4.9)
[2021-09-11 09:16] LABS: TOT PROT 6.5 g/dl (6.4-8.2)
[2021-09-11 09:17] LABS: BILIRUBIN,TOTAL 0.2 mg/dL (0.2-1)
[2021-09-11] MEDS: BACLOFEN 10 MG TABLET (FP) GT SCH ×2 (09:32→21:24)
[2021-09-11] MEDS: FAMOTIDINE 40 MG/5 ML ORAL SUSPENSION NGT SCH ×2 (09:32→21:25)
[2021-09-11] MEDS: MINERAL OIL/PET HY-PHL TOPICAL OINTMENT 454 GM JAR TP SCH (09:33)
[2021-09-11] MEDS: ENOXAPARIN NA (PORCINE) 40 MG/0.4 ML DISP.SYRIN SQ SCH (09:33)
[2021-09-11] MEDS: BUDESONIDE/FORMETEROL FUMARATE 80/4.5 mcg INHALER IH SCH (10:30)
[2021-09-11] MEDS: ALBUTEROL SO4 2.5/IPRATROPIUM 0.5 INH SOL 3 ML VIAL.NEB. NEB PRN ×2 (15:51→20:10)
[2021-09-11] MEDS: PHENobarbital 30 MG TABLET GT SCH (21:24)
[2021-09-11] MEDS: MONTELUKAST NA 10 MG TABLET GT SCH (21:25)
[2021-09-12] MEDS ORDERED: DEXTROSE 5%-WATER - 50 ML IVPB ONE ×3 (01:10→16:43)
[2021-09-12] MEDS ORDERED: PIPERACILLIN/TAZOBACTAM 3.375 GM VIAL IVPB ONE ×3 (01:10→16:43)
[2021-09-12] MEDS: PIPERACILLIN/TAZOB 3.375 GM 3.375 GM in DEXTROSE 5%-WATER - 50 ML IVPB SCH ×3 (01:32→17:42)
[2021-09-12 07:33] LABS: BASO % 0.4 % (0-2.0); EOS % 6.8 % (0-4.5); HEMATOCRIT 39.6 % (32.4-45.2); HEMOGLOBIN 13.1 GM/dL (10.7-15.3); LYMPH % 24.4 % (8-40); MCH 27.3 pg (25.7-33.7); MCHC 33.1 g/dl (32.0-36.0); MEAN CELL VOLUME 82.4 fl (80-96); MEAN PLT VOLUME 8.7 fl (7.5-11.1); MONO % 12.2 % (3.8-10.2); NEUT % 56.2 % (42.8-82.8); PLATELET COUNT 289 10^3/uL (134-434); RDW 15.8 % (11.6-15.6); WHITE BLOOD COUNT 7.2 K/mm3 (4.0-10.0)
[2021-09-12 07:51] LABS: BLOOD UREA NITROGEN 5.5 mg/dL (7-18); CALCIUM 8.7 mg/dL (8.5-10.1); MAGNESIUM 2.1 mg/dL (1.8-2.4)
[2021-09-12 07:52] LABS: ALBUMIN 2.8 g/dl (3.4-5.0)
[2021-09-12 07:55] LABS: CREATININE 0.3 mg/dL (0.55-1.3); PHOSPHOROUS 3.3 mg/dL (2.5-4.9)
[2021-09-12 07:56] LABS: BILIRUBIN,TOTAL 0.3 mg/dL (0.2-1); TOT PROT 6.4 g/dl (6.4-8.2)
[2021-09-12] MEDS: ALBUTEROL SO4 2.5/IPRATROPIUM 0.5 INH SOL 3 ML VIAL.NEB. NEB PRN (08:15)
[2021-09-12] MEDS: ENOXAPARIN NA (PORCINE) 40 MG/0.4 ML DISP.SYRIN SQ SCH (10:25)
[2021-09-12] MEDS ORDERED: COD LIVER OIL/ZINC OXIDE PASTE 56 GM TUBE TP PRN (10:36)
[2021-09-12] MEDS: BACLOFEN 10 MG TABLET (FP) GT SCH ×2 (11:35→22:00)
[2021-09-12] MEDS: MAGNESIUM HYDROX 2400MG/30ML ORAL SUSPENSION 30 ML CUP PO SCH ×2 (11:35→22:00)
[2021-09-12] MEDS: MINERAL OIL/PET HY-PHL TOPICAL OINTMENT 454 GM JAR TP SCH (11:36)
[2021-09-12] MEDS: POLYETHYLENE GLYCOL (HEALTHYLAX) 3350 17 GM PACKET GT SCH (11:36)
[2021-09-12] MEDS: FAMOTIDINE 40 MG/5 ML ORAL SUSPENSION NGT SCH ×2 (11:53→22:01)
[2021-09-12] MEDS: BISACODYL 10 MG SUPP.RECT RC SCH (11:54)
[2021-09-12] MEDS: PHENobarbital 30 MG TABLET GT SCH (22:00)
[2021-09-12] MEDS: MONTELUKAST NA 10 MG TABLET GT SCH (22:00)
[2021-09-13] MEDS ORDERED: PIPERACILLIN/TAZOBACTAM 3.375 GM VIAL IVPB ONE ×3 (01:12→17:16)
[2021-09-13] MEDS ORDERED: DEXTROSE 5%-WATER - 50 ML IVPB ONE ×3 (01:12→17:16)
[2021-09-13] MEDS: PIPERACILLIN/TAZOB 3.375 GM 3.375 GM in DEXTROSE 5%-WATER - 50 ML IVPB SCH ×3 (01:38→17:19)
[2021-09-13 08:47] LABS: BASO % 0.6 % (0-2.0); EOS % 8.9 % (0-4.5); HEMATOCRIT 39.8 % (32.4-45.2); HEMOGLOBIN 12.8 GM/dL (10.7-15.3); LYMPH % 20.6 % (8-40); MCH 26.7 pg (25.7-33.7); MCHC 32.2 g/dl (32.0-36.0); MEAN PLT VOLUME 8.8 fl (7.5-11.1); MONO % 11.2 % (3.8-10.2); NEUT % 58.7 % (42.8-82.8); PLATELET COUNT 302 10^3/uL (134-434); RBC 4.79 M/mm3 (3.60-5.2); RDW 15.6 % (11.6-15.6); WHITE BLOOD COUNT 6.8 K/mm3 (4.0-10.0)
[2021-09-13 09:03] LABS: BLOOD UREA NITROGEN 10.4 mg/dL (7-18)
[2021-09-13 09:05] LABS: CALCIUM 9.2 mg/dL (8.5-10.1)
[2021-09-13 09:06] LABS: CREATININE 0.3 mg/dL (0.55-1.3); MAGNESIUM 2.3 mg/dL (1.8-2.4); PHOSPHOROUS 3.2 mg/dL (2.5-4.9)
[2021-09-13] MEDS: MINERAL OIL/PET HY-PHL TOPICAL OINTMENT 454 GM JAR TP SCH (10:16)
[2021-09-13] MEDS: POLYETHYLENE GLYCOL (HEALTHYLAX) 3350 17 GM PACKET GT SCH (10:17)
[2021-09-13] MEDS: ENOXAPARIN NA (PORCINE) 40 MG/0.4 ML DISP.SYRIN SQ SCH (10:17)
[2021-09-13] MEDS: MAGNESIUM HYDROX 2400MG/30ML ORAL SUSPENSION 30 ML CUP PO SCH ×2 (10:17→23:17)
[2021-09-13] MEDS: BACLOFEN 10 MG TABLET (FP) GT SCH ×2 (10:17→23:15)
[2021-09-13] MEDS: FAMOTIDINE 40 MG/5 ML ORAL SUSPENSION NGT SCH ×2 (10:18→23:18)
[2021-09-13] MEDS: BISACODYL 10 MG SUPP.RECT RC SCH (10:18)
[2021-09-13] MEDS: BACITRACIN 15 GM TUBE TOPICAL OINTMENT TP SCH ×2 (11:20→23:15)
[2021-09-13] MEDS: ALBUTEROL SO4 2.5/IPRATROPIUM 0.5 INH SOL 3 ML VIAL.NEB. NEB SCH ×3 (11:50→19:30)
[2021-09-13] MEDS: PHENobarbital 30 MG TABLET GT SCH (23:14)
[2021-09-13] MEDS: MONTELUKAST NA 10 MG TABLET GT SCH (23:15)
[2021-09-14] MEDS ORDERED: DEXTROSE 5%-WATER - 50 ML IVPB ONE (01:05)
[2021-09-14] MEDS ORDERED: PIPERACILLIN/TAZOBACTAM 3.375 GM VIAL IVPB ONE (01:05)
[2021-09-14] MEDS: PIPERACILLIN/TAZOB 3.375 GM 3.375 GM in DEXTROSE 5%-WATER - 50 ML IVPB SCH (01:58)
[2021-09-14] MEDS: ALBUTEROL SO4 2.5/IPRATROPIUM 0.5 INH SOL 3 ML VIAL.NEB. NEB SCH ×3 (08:31→15:19)
[2021-09-14 09:16] LABS: BASO % 0.5 % (0-2.0); EOS % 6.5 % (0-4.5); HEMATOCRIT 39.7 % (32.4-45.2); LYMPH % 16.1 % (8-40); MCHC 32.8 g/dl (32.0-36.0); MEAN CELL VOLUME 82.3 fl (80-96); MEAN PLT VOLUME 8.6 fl (7.5-11.1); MONO % 6.6 % (3.8-10.2); NEUT % 70.3 % (42.8-82.8); PLATELET COUNT 320 10^3/uL (134-434); RBC 4.82 M/mm3 (3.60-5.2); RDW 15.6 % (11.6-15.6); WHITE BLOOD COUNT 8.5 K/mm3 (4.0-10.0)
[2021-09-14 09:52] LABS: CALCIUM 8.8 mg/dL (8.5-10.1)
[2021-09-14 09:53] LABS: BLOOD UREA NITROGEN 10.9 mg/dL (7-18)
[2021-09-14 09:56] LABS: CREATININE 0.3 mg/dL (0.55-1.3)
[2021-09-14] MEDS: FAMOTIDINE 40 MG/5 ML ORAL SUSPENSION NGT SCH (10:13)
[2021-09-14] MEDS: POLYETHYLENE GLYCOL (HEALTHYLAX) 3350 17 GM PACKET GT SCH (10:13)
[2021-09-14] MEDS: ENOXAPARIN NA (PORCINE) 40 MG/0.4 ML DISP.SYRIN SQ SCH (10:14)
[2021-09-14] MEDS: BISACODYL 10 MG SUPP.RECT RC SCH (10:15)
[2021-09-14] MEDS: MAGNESIUM HYDROX 2400MG/30ML ORAL SUSPENSION 30 ML CUP PO SCH (10:15)
[2021-09-14] MEDS: BACLOFEN 10 MG TABLET (FP) GT SCH (10:15)
[2021-09-14 10:24] VITALS: BP 99/60; PULSE 78; TEMP 97.9
[2021-09-14] MEDS: MINERAL OIL/PET HY-PHL TOPICAL OINTMENT 454 GM JAR TP SCH (10:34)
[2021-09-14] MEDS: BACITRACIN 15 GM TUBE TOPICAL OINTMENT TP SCH (10:34)
== END 2021-09-14 15:46 | DRG 720 ==
LOC: JER 18:54 → JERBED 09-08 00:06 → J7W 09-08 12:23 → JICU 09-08 18:29 → J8W 09-10 13:14
PROVIDERS: ADMIT Internal Medicine; ATTEND Internal Medicine
DX: A41.89 Other specified sepsis (principal); Q02 Microcephaly; F73 Profound intellectual disabilities; Q67.5 Congenital deformity of spine; J45.909 Unspecified asthma, uncomplicated; L03.221 Cellulitis of neck; L02.11 Cutaneous abscess of neck; G40.909 Epilepsy, unspecified, not intractable, without status epilepticus; I25.10 Atherosclerotic heart disease of native coronary artery without angina pectoris; K20.90 Esophagitis, unspecified without bleeding; K56.41 Fecal impaction; N39.0 Urinary tract infection, site not specified; E86.0 Dehydration; R53.2 Functional quadriplegia; D75.1 Secondary polycythemia; K56.7 Ileus, unspecified; L98.499 Non-pressure chronic ulcer of skin of other sites with unspecified severity; L91.0 Hypertrophic scar; L90.5 Scar conditions and fibrosis of skin; K94.23 Gastrostomy malfunction; R00.0 Tachycardia, unspecified; Z74.01 Bed confinement status; Z93.1 Gastrostomy status
CPT/HCPCS: 36415; 71045-TC-FY; 74176-TC; 74177-TC; 80048; 80053; 81003; 82553; 82962; 83605; 83735; 84100; 84484; 85025; 85610; 85730; 86850; 86900; 86901; 87040; 87070; 87077; 87086; 87186; 87205; 93005; 93010; 94640; 99285-25; C9803-CS; G0480; J0475; Q9967; U0003; U0005

== ENCOUNTER 2021-12-26 10:59 | Inpatient (IN) | payer OTHER ==
[2021-12-26] MEDS ORDERED: ALBUTEROL SO4 2.5/IPRATROPIUM 0.5 INH SOL 3 ML VIAL.NEB. NEB ONE ×2 (11:16→11:20)
[2021-12-26] MEDS ORDERED: methylPREDNISolone NA SUCC 125 MG/2 ML VIAL IVPUSH ONE ×2 (11:17→11:45)
[2021-12-26] MEDS ORDERED: MAGNESIUM SULF 50% (8.12 MEQ/2 ML-1 GM VIAL) IVPB ONE (11:19)
[2021-12-26] MEDS ORDERED: methylPREDNISolone NA SUCC 125 MG/2 ML VIAL ONE (11:20)
[2021-12-26] MEDS ORDERED: MAGNESIUM 1GM/D5W - 1 GM/100 ML IVPB IVPB ONE (11:53)
[2021-12-26 12:51] LABS: BASO % 0.3 % (0-2.0); EOS % 1.5 % (0-4.5); HEMATOCRIT 42.4 % (32.4-45.2); HEMOGLOBIN 13.8 GM/dL (10.7-15.3); LYMPH % 6.7 % (8-40); MCH 26.9 pg (25.7-33.7); MCHC 32.4 g/dl (32.0-36.0); MEAN CELL VOLUME 82.9 fl (80-96); MEAN PLT VOLUME 9.2 fl (7.5-11.1); MONO % 6.1 % (3.8-10.2); NEUT % 85.4 % (42.8-82.8); PLATELET COUNT 340 10^3/uL (134-434); RBC 5.12 M/mm3 (3.60-5.2); RDW 14.7 % (11.6-15.6); WHITE BLOOD COUNT 16.3 K/mm3 (4.0-10.0)
[2021-12-26 13:12] LABS: BLOOD UREA NITROGEN 17.2 mg/dL (7-18); CALCIUM 9.2 mg/dL (8.5-10.1)
[2021-12-26 13:13] LABS: ALBUMIN 3.5 g/dl (3.4-5.0)
[2021-12-26 13:16] LABS: CREATININE 0.4 mg/dL (0.55-1.3)
[2021-12-26 13:18] LABS: BILIRUBIN,TOTAL 0.2 mg/dL (0.2-1); TOT PROT 8.1 g/dl (6.4-8.2)
[2021-12-26 13:21] LABS: N-TERMINAL BNP 22.1 pg/ml (5-125)
[2021-12-26] MEDS ORDERED: ALBUTEROL SO4 2.5/IPRATROPIUM 0.5 INH SOL 3 ML VIAL.NEB. NEB PRN (15:29)
[2021-12-26] MEDS ORDERED: BACLOFEN 10 MG TABLET (FP) ONE (21:07)
[2021-12-26] MEDS ORDERED: PHENobarbital 30 MG TABLET ONE (21:07)
[2021-12-26] MEDS ORDERED: MONTELUKAST NA 10 MG TABLET ONE (21:07)
[2021-12-26] MEDS: PHENobarbital 30 MG TABLET GT SCH (21:34)
[2021-12-26] MEDS: BUDESONIDE/FORMETEROL FUMARATE 80/4.5 mcg INHALER IH SCH (21:34)
[2021-12-26] MEDS: BACLOFEN 10 MG TABLET (FP) GT SCH (21:34)
[2021-12-26] MEDS: MONTELUKAST NA 10 MG TABLET GT SCH (21:34)
[2021-12-26] MEDS: CALCIUM 500MG/VIT-D 200 UNITS COMBO TABLET (FP) GT SCH (21:34)
[2021-12-26] MEDS ORDERED: guaiFENesin 600 MG TABLET.ER (FP) PO SCH (22:00)
[2021-12-27 01:03] VITALS: BMI 17.5
[2021-12-27 04:47] LABS: VENOUS BASE EXCESS -1.7 mmol/L (-2-2); VENOUS O2 SATURATION 91.3 % (70-80); VENOUS PH 7.387 (7.310-7.410)
[2021-12-27] MEDS ORDERED: ALBUTEROL SO4 2.5/IPRATROPIUM 0.5 INH SOL 3 ML VIAL.NEB. NEB SCH ×2 (08:00→11:30)
[2021-12-27 09:32] LABS: HEMATOCRIT 41.4 % (32.4-45.2); HEMOGLOBIN 13.2 GM/dL (10.7-15.3); MCH 26.6 pg (25.7-33.7); PLATELET COUNT 297 10^3/uL (134-434); RBC 4.98 M/mm3 (3.60-5.2); RDW 14.8 % (11.6-15.6); WHITE BLOOD COUNT 15.3 K/mm3 (4.0-10.0)
[2021-12-27] MEDS ORDERED: ENOXAPARIN NA (PORCINE) 40 MG/0.4 ML DISP.SYRIN SQ SCH (10:00)
[2021-12-27] MEDS ORDERED: predniSONE 1 MG TABLET (FP) GT SCH (10:00)
[2021-12-27 10:08] LABS: CALCIUM 9.1 mg/dL (8.5-10.1)
[2021-12-27 10:10] LABS: BLOOD UREA NITROGEN 18.4 mg/dL (7-18); MAGNESIUM 2.3 mg/dL (1.8-2.4)
[2021-12-27 10:12] LABS: CREATININE 0.4 mg/dL (0.55-1.3); PHOSPHOROUS 3.8 mg/dL (2.5-4.9)
[2021-12-27] MEDS: BACLOFEN 10 MG TABLET (FP) GT SCH ×2 (12:29→21:50)
[2021-12-27] MEDS: CALCIUM 500MG/VIT-D 200 UNITS COMBO TABLET (FP) GT SCH ×2 (12:29→21:54)
[2021-12-27] MEDS: BUDESONIDE/FORMETEROL FUMARATE 80/4.5 mcg INHALER IH SCH ×2 (12:30→22:40)
[2021-12-27] MEDS: methylPREDNISolone NA SUCC 40 MG/1 ML VIAL IVPUSH SCH ×2 (12:52→18:30)
[2021-12-27] MEDS ORDERED: ALBUTEROL SO4 0.083% IH SOL 2.5 MG/3 ML VIAL.NEB. NEB PRN (13:37)
[2021-12-27] MEDS: ALBUTEROL SO4 2.5/IPRATROPIUM 0.5 INH SOL 3 ML VIAL.NEB. NEB SCH ×2 (15:50→20:20)
[2021-12-27] MEDS: MONTELUKAST NA 10 MG TABLET GT SCH (21:53)
[2021-12-27] MEDS: PHENobarbital 30 MG TABLET GT SCH (21:55)
[2021-12-28] MEDS: methylPREDNISolone NA SUCC 40 MG/1 ML VIAL IVPUSH SCH ×4 (02:37→22:02)
[2021-12-28] MEDS: ALBUTEROL SO4 2.5/IPRATROPIUM 0.5 INH SOL 3 ML VIAL.NEB. NEB SCH ×4 (07:18→20:37)
[2021-12-28] MEDS: CALCIUM 500MG/VIT-D 200 UNITS COMBO TABLET (FP) GT SCH ×2 (10:08→22:02)
[2021-12-28] MEDS: BUDESONIDE/FORMETEROL FUMARATE 80/4.5 mcg INHALER IH SCH ×2 (10:08→23:33)
[2021-12-28] MEDS: BACLOFEN 10 MG TABLET (FP) GT SCH ×2 (10:08→22:01)
[2021-12-28] MEDS: ENOXAPARIN NA (PORCINE) 30 MG/0.3 ML DISP.SYRIN SQ SCH (10:08)
[2021-12-28 10:13] LABS: BASO % 0.3 % (0-2.0); EOS % 0.1 % (0-4.5); HEMATOCRIT 39.2 % (32.4-45.2); HEMOGLOBIN 12.9 GM/dL (10.7-15.3); LYMPH % 8.9 % (8-40); MCH 27.3 pg (25.7-33.7); MCHC 32.9 g/dl (32.0-36.0); MEAN PLT VOLUME 8.8 fl (7.5-11.1); MONO % 6.5 % (3.8-10.2); NEUT % 84.2 % (42.8-82.8); PLATELET COUNT 285 10^3/uL (134-434); RBC 4.73 M/mm3 (3.60-5.2); RDW 14.6 % (11.6-15.6); WHITE BLOOD COUNT 10.2 K/mm3 (4.0-10.0)
[2021-12-28 10:50] LABS: CALCIUM 9.2 mg/dL (8.5-10.1)
[2021-12-28 10:51] LABS: ALBUMIN 3.1 g/dl (3.4-5.0); BLOOD UREA NITROGEN 22.4 mg/dL (7-18); MAGNESIUM 2.2 mg/dL (1.8-2.4)
[2021-12-28 10:53] LABS: BILIRUBIN,TOTAL 0.2 mg/dL (0.2-1); TOT PROT 7.4 g/dl (6.4-8.2)
[2021-12-28 10:54] LABS: CREATININE 0.4 mg/dL (0.55-1.3); PHOSPHOROUS 3.2 mg/dL (2.5-4.9)
[2021-12-28 12:32] LABS: URINE APPEARANCE CLEAR; URINE BILIRUBIN NEGATIVE (NEGATIVE); URINE COLOR YELLOW; URINE GLUCOSE (UA) NEGATIVE (NEGATIVE); URINE KETONE NEGATIVE (NEGATIVE); URINE LEUK ESTERASE NEGATIVE (NEGATIVE); URINE NITRITE NEGATIVE (NEGATIVE); URINE PROTEIN TRACE (NEGATIVE); URINE UROBILINOGEN 0.2 mg/dL (0.2-1.0)
[2021-12-28] MEDS: MONTELUKAST NA 10 MG TABLET GT SCH (22:01)
[2021-12-28] MEDS: PHENobarbital 30 MG TABLET GT SCH (22:02)
[2021-12-29] MEDS: methylPREDNISolone NA SUCC 40 MG/1 ML VIAL IVPUSH SCH ×4 (03:24→21:48)
[2021-12-29] MEDS: ALBUTEROL SO4 2.5/IPRATROPIUM 0.5 INH SOL 3 ML VIAL.NEB. NEB SCH ×4 (07:35→20:54)
[2021-12-29 10:38] LABS: BASO % 0.1 % (0-2.0); EOS % 0.1 % (0-4.5); HEMOGLOBIN 12.6 GM/dL (10.7-15.3); LYMPH % 14.8 % (8-40); MCH 26.8 pg (25.7-33.7); MCHC 32.3 g/dl (32.0-36.0); MEAN PLT VOLUME 8.7 fl (7.5-11.1); PLATELET COUNT 285 10^3/uL (134-434); RDW 14.6 % (11.6-15.6); WHITE BLOOD COUNT 8.8 K/mm3 (4.0-10.0)
[2021-12-29] MEDS: CALCIUM 500MG/VIT-D 200 UNITS COMBO TABLET (FP) GT SCH ×2 (10:59→21:48)
[2021-12-29] MEDS: BACLOFEN 10 MG TABLET (FP) GT SCH ×2 (10:59→21:48)
[2021-12-29] MEDS: ENOXAPARIN NA (PORCINE) 30 MG/0.3 ML DISP.SYRIN SQ SCH (10:59)
[2021-12-29 11:18] LABS: ALBUMIN 2.9 g/dl (3.4-5.0); BLOOD UREA NITROGEN 18.8 mg/dL (7-18); MAGNESIUM 2.2 mg/dL (1.8-2.4)
[2021-12-29 11:21] LABS: CREATININE 0.3 mg/dL (0.55-1.3); PHOSPHOROUS 2.8 mg/dL (2.5-4.9)
[2021-12-29 11:23] LABS: BILIRUBIN,TOTAL 0.2 mg/dL (0.2-1)
[2021-12-29] MEDS: BACITRACIN 15 GM TUBE TOPICAL OINTMENT TP SCH (14:57)
[2021-12-29] MEDS: PHENobarbital 30 MG TABLET GT SCH (21:48)
[2021-12-29] MEDS: MONTELUKAST NA 10 MG TABLET GT SCH (21:48)
[2021-12-30] MEDS: methylPREDNISolone NA SUCC 40 MG/1 ML VIAL IVPUSH SCH (02:02)
[2021-12-30] MEDS: ALBUTEROL SO4 2.5/IPRATROPIUM 0.5 INH SOL 3 ML VIAL.NEB. NEB SCH ×3 (07:30→15:24)
[2021-12-30] MEDS: CALCIUM 500MG/VIT-D 200 UNITS COMBO TABLET (FP) GT SCH ×2 (10:44→22:10)
[2021-12-30] MEDS: ENOXAPARIN NA (PORCINE) 30 MG/0.3 ML DISP.SYRIN SQ SCH (10:44)
[2021-12-30] MEDS: BACLOFEN 10 MG TABLET (FP) GT SCH ×2 (10:44→22:10)
[2021-12-30] MEDS: predniSONE 20 MG TABLET (UD) GT SCH (10:44)
[2021-12-30] MEDS: BACITRACIN 15 GM TUBE TOPICAL OINTMENT TP SCH (10:48)
[2021-12-30] MEDS: PHENobarbital 30 MG TABLET GT SCH (22:10)
[2021-12-30] MEDS: MONTELUKAST NA 10 MG TABLET GT SCH (22:11)
[2021-12-31] MEDS: ALBUTEROL SO4 2.5/IPRATROPIUM 0.5 INH SOL 3 ML VIAL.NEB. NEB SCH ×4 (08:20→15:15)
[2021-12-31 09:35] LABS: BASO % 0.2 % (0-2.0); EOS % 0.5 % (0-4.5); HEMATOCRIT 40.4 % (32.4-45.2); HEMOGLOBIN 13.1 GM/dL (10.7-15.3); LYMPH % 16.1 % (8-40); MCHC 32.4 g/dl (32.0-36.0); MEAN CELL VOLUME 83.2 fl (80-96); MEAN PLT VOLUME 9.1 fl (7.5-11.1); MONO % 10.3 % (3.8-10.2); NEUT % 72.9 % (42.8-82.8); PLATELET COUNT 289 10^3/uL (134-434); RBC 4.85 M/mm3 (3.60-5.2); RDW 14.8 % (11.6-15.6); WHITE BLOOD COUNT 14.4 K/mm3 (4.0-10.0)
[2021-12-31 10:09] LABS: ALBUMIN 3.1 g/dl (3.4-5.0); BLOOD UREA NITROGEN 17.2 mg/dL (7-18)
[2021-12-31 10:12] LABS: CREATININE 0.2 mg/dL (0.55-1.3); PHOSPHOROUS 3.8 mg/dL (2.5-4.9)
[2021-12-31 10:13] LABS: CALCIUM 9.5 mg/dL (8.5-10.1); TOT PROT 7.2 g/dl (6.4-8.2)
[2021-12-31 10:14] LABS: BILIRUBIN,TOTAL 0.2 mg/dL (0.2-1)
[2021-12-31] MEDS ORDERED: DEXTROSE 50%-WATER 25 GM/50 ML DISP.SYRIN IVPUSH ONE (10:30)
[2021-12-31] MEDS ORDERED: DEXTROSE 50%-WATER 25 GM/50 ML DISP.SYRIN ONE (10:53)
[2021-12-31] MEDS: ENOXAPARIN NA (PORCINE) 30 MG/0.3 ML DISP.SYRIN SQ SCH (10:57)
[2021-12-31] MEDS: BACLOFEN 10 MG TABLET (FP) GT SCH (10:58)
[2021-12-31] MEDS: CALCIUM 500MG/VIT-D 200 UNITS COMBO TABLET (FP) GT SCH (10:58)
[2021-12-31] MEDS: predniSONE 20 MG TABLET (UD) GT SCH (10:58)
[2021-12-31] MEDS: BACITRACIN 15 GM TUBE TOPICAL OINTMENT TP SCH (11:40)
[2021-12-31 13:46] VITALS: BP 106/65; PULSE 91; TEMP 98.2
== END 2021-12-31 17:57 | disposition home or self-care (01) | DRG 141 ==
LOC: JER 10:59 → INTOOBSV 12:26 → UNDOADMOB 12:26 → JERBED 12:26 → J8W 12-27 03:41 → OBSVTOIN 12-27 11:27
PROVIDERS: ADMIT Internal Medicine; ATTEND Internal Medicine
PROC: 3E0G76Z Introduction of Nutritional Substance into Upper GI, Via Natural or Artificial Opening (ICD-10-PCS; principal; 2021-12-27)
DX: J45.901 Unspecified asthma with (acute) exacerbation (principal); Q02 Microcephaly; R53.2 Functional quadriplegia; G40.909 Epilepsy, unspecified, not intractable, without status epilepticus; Z74.01 Bed confinement status; R62.59 Other lack of expected normal physiological development in childhood; Z93.1 Gastrostomy status; I25.10 Atherosclerotic heart disease of native coronary artery without angina pectoris; G80.9 Cerebral palsy, unspecified; L91.0 Hypertrophic scar
CPT/HCPCS: 0241U-QW; 36415; 71045-TC-FY; 76705-TC; 80048; 80053; 81003; 82803; 83605; 83735; 83880; 84100; 85025; 85027; 87040; 87086; 87804; 93005; 93010; 94640; 99285-25; C9803-CS; G0378; J0475; U0003; U0005

== ENCOUNTER 2022-02-05 22:27 | Inpatient (IN) | payer OTHER ==
[2022-02-05] MEDS ORDERED: ALBUTEROL SO4 2.5/IPRATROPIUM 0.5 INH SOL 3 ML VIAL.NEB. NEB ONE (22:32)
[2022-02-05] MEDS ORDERED: VANCOMYCIN 1,000 MG in DEXTROSE 5%-WATER - 250 ML IVPB ONE (22:49)
[2022-02-05] MEDS ORDERED: SODIUM CHLORIDE IV ONE (22:49)
[2022-02-05] MEDS ORDERED: PIPERACILLIN/TAZOB 4.5 GM 4.5 GM in DEXTROSE 5%-WATER 100 ML IVPB ONE (22:50)
[2022-02-05] MEDS ORDERED: ALBUTEROL SO4 0.083% IH SOL 2.5 MG/3 ML VIAL.NEB. NEB ONE (23:13)
[2022-02-05] MEDS ORDERED: PIPERACILLIN/TAZOB 4.5 GM 4.5 GM/100 ML BAG IVPB ONE (23:26)
[2022-02-05 23:27] LABS: VENOUS BASE EXCESS 0.3 mmol/L (-2-2); VENOUS O2 SATURATION 92.6 % (70-80); VENOUS PCO2 38.2 mmHg (38-52); VENOUS PH 7.424 (7.310-7.410)
[2022-02-05 23:28] LABS: BASO % 0.3 % (0-2.0); EOS % 0.1 % (0-4.5); HEMATOCRIT 48.9 % (32.4-45.2); HEMOGLOBIN 16.3 GM/dL (10.7-15.3); LYMPH % 4.9 % (8-40); MCH 27.6 pg (25.7-33.7); MCHC 33.3 g/dl (32.0-36.0); MEAN CELL VOLUME 82.8 fl (80-96); MEAN PLT VOLUME 8.7 fl (7.5-11.1); NEUT % 90.7 % (42.8-82.8); PLATELET COUNT 379 10^3/uL (134-434); RDW 15.6 % (11.6-15.6); WHITE BLOOD COUNT 14.3 K/mm3 (4.0-10.0)
[2022-02-05 23:36] LABS: INR 1.13 (0.83-1.09)
[2022-02-05 23:39] LABS: ACTIVATED PTT 33.3 SECONDS (25.2-36.5)
[2022-02-05 23:49] LABS: CALCIUM 9.8 mg/dL (8.5-10.1)
[2022-02-05 23:50] LABS: ALBUMIN 3.6 g/dl (3.4-5.0); BLOOD UREA NITROGEN 29.7 mg/dL (7-18)
[2022-02-05 23:53] LABS: CREATININE 0.5 mg/dL (0.55-1.3)
[2022-02-05 23:54] LABS: TOT PROT 8.6 g/dl (6.4-8.2)
[2022-02-05 23:55] LABS: BILIRUBIN,TOTAL 0.2 mg/dL (0.2-1)
[2022-02-05 23:58] LABS: N-TERMINAL BNP 49.9 pg/ml (5-125)
[2022-02-06] MEDS ORDERED: ACETAMINOPHEN 1000 MG/100 ML BAG IVPB ONE (00:19)
[2022-02-06] MEDS ORDERED: KETOROLAC TROMETHAMINE 15 MG/ML VIAL IVPUSH ONE (00:19)
[2022-02-06] MEDS ORDERED: KETOROLAC TROMETHAMINE 15 MG/ML VIAL ONE (00:41)
[2022-02-06] MEDS ORDERED: ACETAMINOPHEN INJECTION 100 ML IVPB ONE (00:41)
[2022-02-06] MEDS: ALBUTEROL SO4 2.5/IPRATROPIUM 0.5 INH SOL 3 ML VIAL.NEB. NEB SCH ×7 (01:05→19:43)
[2022-02-06] MEDS: DEXAMETHASONE SOD PHOSPHATE 10 MG/1 ML VIAL IVPUSH ONE ×2 (01:20→02:10)
[2022-02-06] MEDS ORDERED: ALBUTEROL SO4 2.5/IPRATROPIUM 0.5 INH SOL 3 ML VIAL.NEB. NEB ONE (01:42)
[2022-02-06] MEDS ORDERED: DEXAMETHASONE SOD PHOSPHATE 10 MG/1 ML VIAL ONE (01:42)
[2022-02-06] MEDS ORDERED: RACEPINEPHRINE IH SOL 2.25% 11.25 MG/0.5 ML VIAL NEB ONE (01:56)
[2022-02-06] MEDS ORDERED: RAPID SEQUENCE INTUBATION KIT NR ONE (01:56)
[2022-02-06] MEDS ORDERED: MAGNESIUM SULFATE IN WATER 2 GM/50 ML IVPB IVPB ONE (01:58)
[2022-02-06] MEDS ORDERED: KETAMINE HCL 200 MG/20 ML VIAL ONE (02:12)
[2022-02-06] MEDS ORDERED: MIDAZOLAM IN 0.9 % SOD.CHLORID 1 MG/1 ML PLAST..BAG ONE (02:24)
[2022-02-06 03:56] LABS: EPI CELLS >36 /uL (0-25.1); HYALINE CASTS 15 /uL (0-3.1); PH,URINE 5.5 (5.0-8.0); URINE APPEARANCE CLOUDY; URINE BACTERIA 157 /uL (0-1359); URINE BILIRUBIN NEGATIVE (NEGATIVE); URINE COLOR DK YELLOW; URINE GLUCOSE (UA) NEGATIVE (NEGATIVE); URINE KETONE NEGATIVE (NEGATIVE); URINE LEUK ESTERASE NEGATIVE (NEGATIVE); URINE NITRITE NEGATIVE (NEGATIVE); URINE PROTEIN 1+ (NEGATIVE); URINE RBC 38 /uL (0-23.9); URINE UROBILINOGEN 0.2 mg/dL (0.2-1.0); URINE WBC 31 /uL (0-25.8)
[2022-02-06] MEDS ORDERED: ALBUTEROL SO4 2.5/IPRATROPIUM 0.5 INH SOL 3 ML VIAL.NEB. NEB PRN (04:03)
[2022-02-06] MEDS: LACTATED RINGERS SOLUTION 1,000 ML/1,000 ML INFUS.BAG IV SCH (04:30)
[2022-02-06] MEDS: methylPREDNISolone NA SUCC 40 MG/1 ML VIAL IVPUSH SCH ×2 (04:33→09:35)
[2022-02-06] MEDS ORDERED: VANCOMYCIN 1 GM in D5W (PRE-DOCKED) 1,000 MG/250 ML IVPB ONE (04:52)
[2022-02-06] MEDS ORDERED: VANCOMYCIN/WATER FOR INJ (PEG) 1,000 MG/200 ML BAG IVPB ONE (05:15)
[2022-02-06] MEDS ORDERED: ACETAMINOPHEN 1000 MG/100 ML BAG IVPB PRN ×2 (06:00→08:07)
[2022-02-06] MEDS ORDERED: ROCURONIUM BROMIDE 50 MG/5 ML VIAL IVPUSH ONE (06:44)
[2022-02-06] MEDS ORDERED: KETAMINE HCL 200 MG/20 ML VIAL IVPUSH ONE (06:44)
[2022-02-06] MEDS ORDERED: MIDAZOLAM 100 MG in SODIUM CHLORIDE 100 ML IVPB SCH (06:45)
[2022-02-06] MEDS ORDERED: MIDAZOLAM IN 0.9 % SOD.CHLORID 100 MG/100 ML PLAST..BAG IVPB SCH (06:55)
[2022-02-06 07:26] LABS: ARTERIAL BLD GAS O2 SATURATION 98.1 % (95-98); ARTERIAL BLOOD GAS BASE EXCESS -0.1 mmol/L (-2-2); ARTERIAL BLOOD GAS PO2 108.3 mmHg (80-100)
[2022-02-06 07:28] LABS: ALLENS TEST POSITIVE
[2022-02-06 07:29] LABS: VENT MODE A/C
[2022-02-06 07:57] LABS: HEMATOCRIT 45.4 % (32.4-45.2); HEMOGLOBIN 14.7 GM/dL (10.7-15.3); MCH 27.5 pg (25.7-33.7); MCHC 32.5 g/dl (32.0-36.0); MEAN CELL VOLUME 84.6 fl (80-96); MEAN PLT VOLUME 8.7 fl (7.5-11.1); PLATELET COUNT 274 10^3/uL (134-434); RBC 5.36 M/mm3 (3.60-5.2); RDW 15.3 % (11.6-15.6); WHITE BLOOD COUNT 20.3 K/mm3 (4.0-10.0)
[2022-02-06 08:09] LABS: CALCIUM 8.6 mg/dL (8.5-10.1)
[2022-02-06 08:10] LABS: ALBUMIN 3.2 g/dl (3.4-5.0); BLOOD UREA NITROGEN 27.5 mg/dL (7-18)
[2022-02-06 08:13] LABS: CREATININE 0.4 mg/dL (0.55-1.3); PHOSPHOROUS 4.5 mg/dL (2.5-4.9)
[2022-02-06 08:14] LABS: TOT PROT 7.4 g/dl (6.4-8.2)
[2022-02-06 08:15] LABS: BILIRUBIN,TOTAL 0.4 mg/dL (0.2-1)
[2022-02-06 09:27] LABS: ANISOCYTOSIS 0; HELMET CELLS 0; HOWELL-JOLLY BODIES 0; MACROCYTOSIS 0; OVALOCYTE 0; ROULEAU 0; SICKELED CELLS 0; TARGET CELLS 0; TEAR DROP CELLS 0; TOXIC GRANULATION 0
[2022-02-06] MEDS: PANTOPRAZOLE SODIUM 40 MG VIAL IVPUSH SCH (09:35)
[2022-02-06] MEDS: MUPIROCIN 2% TOPICAL OINTMENT FOR DECOLONIZATION NS SCH ×2 (09:36→21:36)
[2022-02-06] MEDS: ENOXAPARIN NA (PORCINE) 40 MG/0.4 ML DISP.SYRIN SQ SCH (09:36)
[2022-02-06] MEDS: PIPERACILLIN/TAZOB 3.375 GM 3.375 GM in DEXTROSE 5%-WATER - 50 ML IVPB SCH ×2 (09:36→17:26)
[2022-02-06] MEDS: BACLOFEN 10 MG TABLET (FP) GT SCH ×2 (10:47→22:57)
[2022-02-06] MEDS ORDERED: BISACODYL 10 MG SUPP.RECT RC PRN (11:41)
[2022-02-06] MEDS ORDERED: VANCOMYCIN 500 MG in DEXTROSE 5%-WATER - 100 ML IVPB SCH (12:00)
[2022-02-06] MEDS ORDERED: VANCOMYCIN 500 MG in DEXTROSE 5%-WATER 100 ML IVPB SCH (12:00)
[2022-02-06] MEDS: DOXYCYCLINE INJECTION 100 MG in DEXTROSE 5%-WATER 100 ML IVPB SCH (21:35)
[2022-02-06] MEDS: CHLORHEXIDINE GLUCONATE 4% CLEANSER FOR DECOLONIZATION TP SCH (21:36)
[2022-02-06] MEDS: BACITRACIN 15 GM TUBE TOPICAL OINTMENT TP SCH (21:36)
[2022-02-06] MEDS: CALCIUM 500MG/VIT-D 200 UNITS COMBO TABLET (FP) GT SCH ×2 (21:36→22:57)
[2022-02-06] MEDS: MONTELUKAST NA 10 MG TABLET GT SCH ×2 (21:37→22:59)
[2022-02-06] MEDS: PHENobarbital 20 MG/5 ML UNIT-DOSE CUP GT SCH ×2 (21:37→22:56)
[2022-02-06] MEDS ORDERED: PHENobarbital SODIUM 65 MG/1 ML VIAL IVPUSH ONE (22:19)
[2022-02-07] MEDS: TUBE FEED DECLOGGING SOLUTION 12,000 UNITS GT SCH ×4 (00:11→18:09)
[2022-02-07] MEDS: PIPERACILLIN/TAZOB 3.375 GM 3.375 GM in DEXTROSE 5%-WATER - 50 ML IVPB SCH ×3 (02:00→18:10)
[2022-02-07] MEDS: LACTATED RINGERS SOLUTION 1,000 ML/1,000 ML INFUS.BAG IV SCH (04:11)
[2022-02-07] MEDS: ALBUTEROL SO4 2.5/IPRATROPIUM 0.5 INH SOL 3 ML VIAL.NEB. NEB SCH ×4 (08:00→20:55)
[2022-02-07] MEDS: MUPIROCIN 2% TOPICAL OINTMENT FOR DECOLONIZATION NS SCH ×2 (09:30→21:05)
[2022-02-07] MEDS: PANTOPRAZOLE SODIUM 40 MG VIAL IVPUSH SCH (09:33)
[2022-02-07] MEDS: DOXYCYCLINE INJECTION 100 MG in DEXTROSE 5%-WATER 100 ML IVPB SCH ×2 (09:35→21:06)
[2022-02-07] MEDS: ENOXAPARIN NA (PORCINE) 40 MG/0.4 ML DISP.SYRIN SQ SCH (09:36)
[2022-02-07] MEDS: methylPREDNISolone NA SUCC 40 MG/1 ML VIAL IVPUSH SCH (09:36)
[2022-02-07] MEDS: BACLOFEN 10 MG TABLET (FP) GT SCH ×2 (09:37→21:05)
[2022-02-07] MEDS: CALCIUM 500MG/VIT-D 200 UNITS COMBO TABLET (FP) GT SCH ×2 (09:37→21:06)
[2022-02-07] MEDS: BACITRACIN 15 GM TUBE TOPICAL OINTMENT TP SCH ×2 (09:41→21:06)
[2022-02-07 16:22] VITALS: BMI 19.7
[2022-02-07 17:38] LABS: BASO % 0.2 % (0-2.0); EOS % 0.1 % (0-4.5); HEMATOCRIT 41.3 % (32.4-45.2); HEMOGLOBIN 13.2 GM/dL (10.7-15.3); LYMPH % 10.7 % (8-40); MCH 26.6 pg (25.7-33.7); MEAN CELL VOLUME 83.1 fl (80-96); MEAN PLT VOLUME 8.9 fl (7.5-11.1); MONO % 8.5 % (3.8-10.2); NEUT % 80.5 % (42.8-82.8); PLATELET COUNT 330 10^3/uL (134-434); RBC 4.97 M/mm3 (3.60-5.2); RDW 14.9 % (11.6-15.6); WHITE BLOOD COUNT 6.9 K/mm3 (4.0-10.0)
[2022-02-07] MEDS: PHENobarbital 20 MG/5 ML UNIT-DOSE CUP GT SCH (21:05)
[2022-02-07] MEDS: MONTELUKAST NA 10 MG TABLET GT SCH (21:05)
[2022-02-07] MEDS: CHLORHEXIDINE GLUCONATE 4% CLEANSER FOR DECOLONIZATION TP SCH (21:06)
[2022-02-08] MEDS: PIPERACILLIN/TAZOB 3.375 GM 3.375 GM in DEXTROSE 5%-WATER - 50 ML IVPB SCH ×3 (01:04→18:00)
[2022-02-08] MEDS: LACTATED RINGERS SOLUTION 1,000 ML/1,000 ML INFUS.BAG IV SCH (02:00)
[2022-02-08 06:50] LABS: BASO % 0.2 % (0-2.0); EOS % 3.5 % (0-4.5); HEMATOCRIT 37.1 % (32.4-45.2); HEMOGLOBIN 11.9 GM/dL (10.7-15.3); LYMPH % 21.5 % (8-40); MCH 26.7 pg (25.7-33.7); MCHC 32.2 g/dl (32.0-36.0); MEAN PLT VOLUME 8.9 fl (7.5-11.1); MONO % 12.1 % (3.8-10.2); NEUT % 62.7 % (42.8-82.8); PLATELET COUNT 285 10^3/uL (134-434); RBC 4.47 M/mm3 (3.60-5.2); RDW 15.2 % (11.6-15.6); WHITE BLOOD COUNT 6.8 K/mm3 (4.0-10.0)
[2022-02-08 07:26] LABS: CALCIUM 7.8 mg/dL (8.5-10.1)
[2022-02-08 07:30] LABS: CREATININE 0.2 mg/dL (0.55-1.3)
[2022-02-08 07:32] LABS: BILIRUBIN,TOTAL 0.3 mg/dL (0.2-1); TOT PROT 5.6 g/dl (6.4-8.2)
[2022-02-08 07:41] LABS: ALBUMIN 2.4 g/dl (3.4-5.0)
[2022-02-08] MEDS: ALBUTEROL SO4 2.5/IPRATROPIUM 0.5 INH SOL 3 ML VIAL.NEB. NEB SCH ×4 (08:09→19:42)
[2022-02-08] MEDS: DOXYCYCLINE INJECTION 100 MG in DEXTROSE 5%-WATER 100 ML IVPB SCH ×3 (09:06→21:42)
[2022-02-08] MEDS: ENOXAPARIN NA (PORCINE) 40 MG/0.4 ML DISP.SYRIN SQ SCH (09:34)
[2022-02-08] MEDS: methylPREDNISolone NA SUCC 40 MG/1 ML VIAL IVPUSH SCH (09:36)
[2022-02-08] MEDS: TUBE FEED DECLOGGING SOLUTION 12,000 UNITS GT SCH ×3 (09:37→18:50)
[2022-02-08] MEDS: MUPIROCIN 2% TOPICAL OINTMENT FOR DECOLONIZATION NS SCH ×2 (09:38→21:43)
[2022-02-08] MEDS: PANTOPRAZOLE SODIUM 40 MG VIAL IVPUSH SCH (09:39)
[2022-02-08] MEDS: BACITRACIN 15 GM TUBE TOPICAL OINTMENT TP SCH ×2 (10:30→21:43)
[2022-02-08] MEDS: CALCIUM 500MG/VIT-D 200 UNITS COMBO TABLET (FP) GT SCH ×2 (12:00→21:44)
[2022-02-08] MEDS: BACLOFEN 10 MG TABLET (FP) GT SCH ×2 (12:00→21:44)
[2022-02-08] MEDS: FAMOTIDINE 40 MG/5 ML ORAL SUSPENSION GT SCH (12:00)
[2022-02-08] MEDS: KCL 10 MEQ IVPB 10 MEQ/100 ML INFUS.BAG IVPB SCH ×3 (14:00→18:49)
[2022-02-08] MEDS: FLUCONAZOLE 40 MG/ML SUSPENSION GT SCH (21:43)
[2022-02-08] MEDS: CHLORHEXIDINE GLUCONATE 4% CLEANSER FOR DECOLONIZATION TP SCH (21:43)
[2022-02-08] MEDS: MONTELUKAST NA 10 MG TABLET GT SCH (21:44)
[2022-02-08] MEDS: PHENobarbital 20 MG/5 ML UNIT-DOSE CUP GT SCH (21:44)
[2022-02-08] MEDS: NYSTATIN POWDER 100,000 UNITS/GM - 15 GM TOPICAL POWDER TP SCH (21:46)
[2022-02-09] MEDS: LACTATED RINGERS SOLUTION 1,000 ML/1,000 ML INFUS.BAG IV SCH ×2 (00:30→16:56)
[2022-02-09] MEDS: PIPERACILLIN/TAZOB 3.375 GM 3.375 GM in DEXTROSE 5%-WATER - 50 ML IVPB SCH ×3 (01:43→16:59)
[2022-02-09 07:10] LABS: BASO % 0.4 % (0-2.0); EOS % 2.1 % (0-4.5); HEMATOCRIT 42.7 % (32.4-45.2); HEMOGLOBIN 14.1 GM/dL (10.7-15.3); LYMPH % 18.4 % (8-40); MCH 27.4 pg (25.7-33.7); MEAN PLT VOLUME 8.3 fl (7.5-11.1); MONO % 10.4 % (3.8-10.2); NEUT % 68.7 % (42.8-82.8); PLATELET COUNT 332 10^3/uL (134-434); RBC 5.14 M/mm3 (3.60-5.2); RDW 15.2 % (11.6-15.6); WHITE BLOOD COUNT 9.2 K/mm3 (4.0-10.0)
[2022-02-09 07:29] LABS: CHLORIDE 105 mmol/L (98-107); SODIUM 137 mmol/L (136-145)
[2022-02-09 07:35] LABS: BLOOD UREA NITROGEN 11.3 mg/dL (7-18); CALCIUM 8.4 mg/dL (8.5-10.1)
[2022-02-09 07:36] LABS: ALBUMIN 2.8 g/dl (3.4-5.0); ANION GAP 11 MMOL/L (8-16); CO2 21 mmol/L (21-32); MAGNESIUM 1.8 mg/dL (1.8-2.4)
[2022-02-09 07:37] LABS: SGPT/ALT 39 U/L (13-61)
[2022-02-09 07:38] LABS: BILIRUBIN,TOTAL 0.4 mg/dL (0.2-1)
[2022-02-09 07:39] LABS: ALK PHOS 87 U/L (45-117); CREATININE 0.2 mg/dL (0.55-1.3); SGOT/AST 29 U/L (15-37); TOT PROT 6.7 g/dl (6.4-8.2)
[2022-02-09 07:42] LABS: GLUCOSE,RANDOM 37 mg/dL (74-106)
[2022-02-09] MEDS: ALBUTEROL SO4 2.5/IPRATROPIUM 0.5 INH SOL 3 ML VIAL.NEB. NEB SCH ×4 (08:20→20:56)
[2022-02-09] MEDS ORDERED: DEXTROSE 50%-WATER - 25 GM/50 ML VIAL IVPUSH STA (08:26)
[2022-02-09] MEDS ORDERED: DEXTROSE 50%-WATER 25 GM/50 ML DISP.SYRIN ONE (08:26)
[2022-02-09] MEDS: TUBE FEED DECLOGGING SOLUTION 12,000 UNITS GT SCH ×3 (10:29→16:56)
[2022-02-09] MEDS: BACITRACIN 15 GM TUBE TOPICAL OINTMENT TP SCH ×2 (10:30→23:27)
[2022-02-09] MEDS: DOXYCYCLINE INJECTION 100 MG in DEXTROSE 5%-WATER 100 ML IVPB SCH ×2 (10:31→23:29)
[2022-02-09] MEDS: MUPIROCIN 2% TOPICAL OINTMENT FOR DECOLONIZATION NS SCH ×2 (10:31→23:28)
[2022-02-09] MEDS: PANTOPRAZOLE SODIUM 40 MG VIAL IVPUSH SCH (10:48)
[2022-02-09] MEDS: BACLOFEN 10 MG TABLET (FP) GT SCH ×2 (10:48→23:28)
[2022-02-09] MEDS: methylPREDNISolone NA SUCC 40 MG/1 ML VIAL IVPUSH SCH (10:48)
[2022-02-09] MEDS: NYSTATIN POWDER 100,000 UNITS/GM - 15 GM TOPICAL POWDER TP SCH ×2 (10:48→23:31)
[2022-02-09] MEDS: ENOXAPARIN NA (PORCINE) 40 MG/0.4 ML DISP.SYRIN SQ SCH (10:48)
[2022-02-09] MEDS: FAMOTIDINE 40 MG/5 ML ORAL SUSPENSION GT SCH (10:56)
[2022-02-09] MEDS: FLUCONAZOLE 40 MG/ML SUSPENSION GT SCH (10:57)
[2022-02-09] MEDS: CALCIUM 500MG/VIT-D 200 UNITS COMBO TABLET (FP) GT SCH ×2 (11:04→23:29)
[2022-02-09] MEDS ORDERED: MAGNESIUM SULF 50% (8.12 MEQ/2 ML-1 GM VIAL) IVPB ONE (12:26)
[2022-02-09] MEDS ORDERED: MAGNESIUM SULF 50% (8.12 MEQ/2 ML-1 GM VIAL) ONE (13:27)
[2022-02-09] MEDS: MONTELUKAST NA 10 MG TABLET GT SCH (23:28)
[2022-02-09] MEDS: CHLORHEXIDINE GLUCONATE 4% CLEANSER FOR DECOLONIZATION TP SCH (23:28)
[2022-02-09] MEDS: PHENobarbital 20 MG/5 ML UNIT-DOSE CUP GT SCH (23:29)
[2022-02-10] MEDS: PIPERACILLIN/TAZOB 3.375 GM 3.375 GM in DEXTROSE 5%-WATER - 50 ML IVPB SCH ×5 (01:42→19:24)
[2022-02-10] MEDS: ALBUTEROL SO4 2.5/IPRATROPIUM 0.5 INH SOL 3 ML VIAL.NEB. NEB SCH ×4 (07:52→19:39)
[2022-02-10] MEDS: TUBE FEED DECLOGGING SOLUTION 12,000 UNITS GT SCH ×3 (07:57→16:31)
[2022-02-10] MEDS: LACTATED RINGERS SOLUTION 1,000 ML/1,000 ML INFUS.BAG IV SCH ×2 (07:58→07:59)
[2022-02-10] MEDS: ENOXAPARIN NA (PORCINE) 40 MG/0.4 ML DISP.SYRIN SQ SCH (09:14)
[2022-02-10] MEDS: BACITRACIN 15 GM TUBE TOPICAL OINTMENT TP SCH ×2 (09:14→22:02)
[2022-02-10] MEDS: FAMOTIDINE 40 MG/5 ML ORAL SUSPENSION GT SCH (09:14)
[2022-02-10] MEDS: FLUCONAZOLE 40 MG/ML SUSPENSION GT SCH (09:14)
[2022-02-10] MEDS: PANTOPRAZOLE SODIUM 40 MG VIAL IVPUSH SCH (09:15)
[2022-02-10] MEDS: methylPREDNISolone NA SUCC 40 MG/1 ML VIAL IVPUSH SCH (09:15)
[2022-02-10] MEDS: BACLOFEN 10 MG TABLET (FP) GT SCH ×2 (09:15→22:02)
[2022-02-10] MEDS: CALCIUM 500MG/VIT-D 200 UNITS COMBO TABLET (FP) GT SCH ×2 (09:16→22:02)
[2022-02-10] MEDS: DOXYCYCLINE INJECTION 100 MG in DEXTROSE 5%-WATER 100 ML IVPB SCH ×2 (09:16→22:02)
[2022-02-10] MEDS: NYSTATIN POWDER 100,000 UNITS/GM - 15 GM TOPICAL POWDER TP SCH ×2 (09:34→22:02)
[2022-02-10 11:52] LABS: BASO % 0.3 % (0-2.0); EOS % 0.5 % (0-4.5); HEMATOCRIT 40.9 % (32.4-45.2); HEMOGLOBIN 13.3 GM/dL (10.7-15.3); LYMPH % 9.8 % (8-40); MCHC 32.5 g/dl (32.0-36.0); MEAN PLT VOLUME 8.6 fl (7.5-11.1); MONO % 5.3 % (3.8-10.2); NEUT % 84.1 % (42.8-82.8); PLATELET COUNT 337 10^3/uL (134-434); RBC 4.93 M/mm3 (3.60-5.2); RDW 14.6 % (11.6-15.6); WHITE BLOOD COUNT 9.2 K/mm3 (4.0-10.0)
[2022-02-10 12:16] LABS: CALCIUM 8.4 mg/dL (8.5-10.1)
[2022-02-10 12:17] LABS: ALBUMIN 2.5 g/dl (3.4-5.0); BLOOD UREA NITROGEN 8.6 mg/dL (7-18)
[2022-02-10 12:20] LABS: CREATININE 0.3 mg/dL (0.55-1.3); PHOSPHOROUS 2.8 mg/dL (2.5-4.9)
[2022-02-10 12:21] LABS: BILIRUBIN,TOTAL 0.4 mg/dL (0.2-1)
[2022-02-10] MEDS: MONTELUKAST NA 10 MG TABLET GT SCH (22:02)
[2022-02-10] MEDS: PHENobarbital 20 MG/5 ML UNIT-DOSE CUP GT SCH (22:02)
[2022-02-11] MEDS: PIPERACILLIN/TAZOB 3.375 GM 3.375 GM in DEXTROSE 5%-WATER - 50 ML IVPB SCH ×4 (01:37→20:32)
[2022-02-11] MEDS ORDERED: BISACODYL 10 MG SUPP.RECT RC PRN (01:38)
[2022-02-11] MEDS: LACTATED RINGERS SOLUTION 1,000 ML/1,000 ML INFUS.BAG IV SCH ×2 (04:51)
[2022-02-11] MEDS ORDERED: VANCOMYCIN/WATER FOR INJ (PEG) 1,000 MG/200 ML BAG IVPB ONE (08:00)
[2022-02-11 08:11] LABS: BASO % 0.4 % (0-2.0); HEMATOCRIT 41.1 % (32.4-45.2); HEMOGLOBIN 13.2 GM/dL (10.7-15.3); LYMPH % 30.7 % (8-40); MCH 26.6 pg (25.7-33.7); MCHC 32.1 g/dl (32.0-36.0); MEAN CELL VOLUME 82.8 fl (80-96); MEAN PLT VOLUME 8.6 fl (7.5-11.1); MONO % 11.7 % (3.8-10.2); NEUT % 55.2 % (42.8-82.8); PLATELET COUNT 339 10^3/uL (134-434); RBC 4.97 M/mm3 (3.60-5.2); RDW 15.1 % (11.6-15.6); WHITE BLOOD COUNT 8.6 K/mm3 (4.0-10.0)
[2022-02-11 08:35] LABS: ALBUMIN 2.6 g/dl (3.4-5.0); BLOOD UREA NITROGEN 10.3 mg/dL (7-18); CALCIUM 8.7 mg/dL (8.5-10.1); MAGNESIUM 1.8 mg/dL (1.8-2.4)
[2022-02-11 08:37] LABS: CREATININE 0.3 mg/dL (0.55-1.3); PHOSPHOROUS 3.6 mg/dL (2.5-4.9)
[2022-02-11 08:39] LABS: BILIRUBIN,TOTAL 0.4 mg/dL (0.2-1)
[2022-02-11] MEDS: ALBUTEROL SO4 2.5/IPRATROPIUM 0.5 INH SOL 3 ML VIAL.NEB. NEB SCH ×4 (08:58→20:14)
[2022-02-11] MEDS ORDERED: PANTOPRAZOLE SOD 40 MG SUSPENSION PACKET PO SCH (10:00)
[2022-02-11] MEDS: PANTOPRAZOLE SODIUM 40 MG VIAL IVPUSH SCH (10:56)
[2022-02-11] MEDS: methylPREDNISolone NA SUCC 40 MG/1 ML VIAL IVPUSH SCH (10:57)
[2022-02-11] MEDS: CALCIUM 500MG/VIT-D 200 UNITS COMBO TABLET (FP) GT SCH ×2 (10:57→23:13)
[2022-02-11] MEDS: ENOXAPARIN NA (PORCINE) 40 MG/0.4 ML DISP.SYRIN SQ SCH (10:57)
[2022-02-11] MEDS: FLUCONAZOLE 40 MG/ML SUSPENSION GT SCH (10:58)
[2022-02-11] MEDS: NYSTATIN POWDER 100,000 UNITS/GM - 15 GM TOPICAL POWDER TP SCH ×2 (10:59→23:21)
[2022-02-11] MEDS: BACITRACIN 15 GM TUBE TOPICAL OINTMENT TP SCH ×2 (10:59→23:12)
[2022-02-11] MEDS: BACLOFEN 10 MG TABLET (FP) GT SCH ×2 (11:03→23:13)
[2022-02-11] MEDS: TUBE FEED DECLOGGING SOLUTION 12,000 UNITS GT SCH ×3 (12:27→18:32)
[2022-02-11] MEDS: PHENobarbital 20 MG/5 ML UNIT-DOSE CUP GT SCH (23:13)
[2022-02-11] MEDS: MONTELUKAST NA 10 MG TABLET GT SCH (23:14)
[2022-02-12] MEDS: PIPERACILLIN/TAZOB 3.375 GM 3.375 GM in DEXTROSE 5%-WATER - 50 ML IVPB SCH ×4 (02:06→17:59)
[2022-02-12] MEDS: LACTATED RINGERS SOLUTION 1,000 ML/1,000 ML INFUS.BAG IV SCH ×2 (02:06→06:04)
[2022-02-12] MEDS: ALBUTEROL SO4 2.5/IPRATROPIUM 0.5 INH SOL 3 ML VIAL.NEB. NEB SCH ×4 (08:43→19:25)
[2022-02-12 09:19] LABS: BASO % 0.6 % (0-2.0); EOS % 4.3 % (0-4.5); HEMATOCRIT 43.5 % (32.4-45.2); HEMOGLOBIN 13.9 GM/dL (10.7-15.3); LYMPH % 29.4 % (8-40); MCH 26.5 pg (25.7-33.7); MCHC 31.8 g/dl (32.0-36.0); MEAN CELL VOLUME 83.3 fl (80-96); MEAN PLT VOLUME 9.1 fl (7.5-11.1); MONO % 9.6 % (3.8-10.2); NEUT % 56.1 % (42.8-82.8); PLATELET COUNT 329 10^3/uL (134-434); RBC 5.22 M/mm3 (3.60-5.2); RDW 15.1 % (11.6-15.6); WHITE BLOOD COUNT 8.2 K/mm3 (4.0-10.0)
[2022-02-12 09:52] LABS: ALBUMIN 2.7 g/dl (3.4-5.0); BILIRUBIN,TOTAL 0.3 mg/dL (0.2-1); BLOOD UREA NITROGEN 9.3 mg/dL (7-18); PHOSPHOROUS 3.7 mg/dL (2.5-4.9); TOT PROT 6.5 g/dl (6.4-8.2)
[2022-02-12 09:54] LABS: CALCIUM 8.8 mg/dL (8.5-10.1); CREATININE 0.2 mg/dL (0.55-1.3); MAGNESIUM 1.8 mg/dL (1.8-2.4)
[2022-02-12] MEDS: BACITRACIN 15 GM TUBE TOPICAL OINTMENT TP SCH ×2 (10:34→22:51)
[2022-02-12] MEDS: NYSTATIN POWDER 100,000 UNITS/GM - 15 GM TOPICAL POWDER TP SCH ×2 (10:35→22:52)
[2022-02-12] MEDS: ENOXAPARIN NA (PORCINE) 40 MG/0.4 ML DISP.SYRIN SQ SCH (10:36)
[2022-02-12] MEDS: PANTOPRAZOLE SODIUM 40 MG VIAL IVPUSH SCH (10:36)
[2022-02-12] MEDS: methylPREDNISolone NA SUCC 40 MG/1 ML VIAL IVPUSH SCH (10:36)
[2022-02-12] MEDS: CALCIUM 500MG/VIT-D 200 UNITS COMBO TABLET (FP) GT SCH ×2 (10:54→22:51)
[2022-02-12] MEDS: BACLOFEN 10 MG TABLET (FP) GT SCH ×2 (10:54→22:51)
[2022-02-12] MEDS: FLUCONAZOLE 40 MG/ML SUSPENSION GT SCH (11:02)
[2022-02-12] MEDS: MONTELUKAST NA 10 MG TABLET GT SCH (22:51)
[2022-02-12] MEDS: PHENobarbital 20 MG/5 ML UNIT-DOSE CUP GT SCH (22:52)
[2022-02-13] MEDS: PIPERACILLIN/TAZOB 3.375 GM 3.375 GM in DEXTROSE 5%-WATER - 50 ML IVPB SCH ×3 (02:17→18:51)
[2022-02-13] MEDS: LACTATED RINGERS SOLUTION 1,000 ML/1,000 ML INFUS.BAG IV SCH ×2 (04:52→18:50)
[2022-02-13] MEDS: ALBUTEROL SO4 2.5/IPRATROPIUM 0.5 INH SOL 3 ML VIAL.NEB. NEB SCH ×4 (07:51→20:15)
[2022-02-13] MEDS: PANTOPRAZOLE SODIUM 40 MG VIAL IVPUSH SCH (10:47)
[2022-02-13] MEDS: FLUCONAZOLE 40 MG/ML SUSPENSION GT SCH (10:48)
[2022-02-13] MEDS: CALCIUM 500MG/VIT-D 200 UNITS COMBO TABLET (FP) GT SCH ×2 (10:48→21:48)
[2022-02-13] MEDS: BACLOFEN 10 MG TABLET (FP) GT SCH ×2 (10:49→21:48)
[2022-02-13] MEDS: BACITRACIN 15 GM TUBE TOPICAL OINTMENT TP SCH ×2 (10:49→21:48)
[2022-02-13] MEDS: ENOXAPARIN NA (PORCINE) 40 MG/0.4 ML DISP.SYRIN SQ SCH (10:49)
[2022-02-13] MEDS: methylPREDNISolone NA SUCC 40 MG/1 ML VIAL IVPUSH SCH (10:49)
[2022-02-13] MEDS: NYSTATIN POWDER 100,000 UNITS/GM - 15 GM TOPICAL POWDER TP SCH ×2 (10:50→21:48)
[2022-02-13 12:36] LABS: BASO % 0.4 % (0-2.0); EOS % 1.7 % (0-4.5); HEMATOCRIT 38.1 % (32.4-45.2); HEMOGLOBIN 12.7 GM/dL (10.7-15.3); LYMPH % 26.1 % (8-40); MCH 27.4 pg (25.7-33.7); MCHC 33.2 g/dl (32.0-36.0); MEAN CELL VOLUME 82.3 fl (80-96); MEAN PLT VOLUME 8.6 fl (7.5-11.1); MONO % 10.6 % (3.8-10.2); NEUT % 61.2 % (42.8-82.8); PLATELET COUNT 322 10^3/uL (134-434); RBC 4.63 M/mm3 (3.60-5.2); WHITE BLOOD COUNT 7.8 K/mm3 (4.0-10.0)
[2022-02-13 14:40] LABS: PHOSPHOROUS 3.2 mg/dL (2.5-4.9)
[2022-02-13 14:41] LABS: TOT PROT 5.6 g/dl (6.4-8.2)
[2022-02-13 14:42] LABS: BILIRUBIN,TOTAL 0.2 mg/dL (0.2-1)
[2022-02-13 14:43] LABS: ALBUMIN 2.4 g/dl (3.4-5.0)
[2022-02-13 14:44] LABS: BLOOD UREA NITROGEN 6.4 mg/dL (7-18); CALCIUM 8.6 mg/dL (8.5-10.1); MAGNESIUM 1.8 mg/dL (1.8-2.4)
[2022-02-13 14:46] LABS: CREATININE 0.3 mg/dL (0.55-1.3)
[2022-02-13] MEDS: PHENobarbital 20 MG/5 ML UNIT-DOSE CUP GT SCH (21:47)
[2022-02-13] MEDS: MONTELUKAST NA 10 MG TABLET GT SCH (21:48)
[2022-02-14] MEDS: PIPERACILLIN/TAZOB 3.375 GM 3.375 GM in DEXTROSE 5%-WATER - 50 ML IVPB SCH ×3 (01:42→17:41)
[2022-02-14] MEDS: ALBUTEROL SO4 2.5/IPRATROPIUM 0.5 INH SOL 3 ML VIAL.NEB. NEB SCH ×4 (07:20→19:58)
[2022-02-14] MEDS: BACITRACIN 15 GM TUBE TOPICAL OINTMENT TP SCH ×2 (09:42→21:59)
[2022-02-14] MEDS: LACTATED RINGERS SOLUTION 1,000 ML/1,000 ML INFUS.BAG IV SCH (09:42)
[2022-02-14] MEDS: predniSONE 20 MG TABLET (UD) GT SCH (09:43)
[2022-02-14] MEDS: ENOXAPARIN NA (PORCINE) 40 MG/0.4 ML DISP.SYRIN SQ SCH (09:43)
[2022-02-14] MEDS: NYSTATIN POWDER 100,000 UNITS/GM - 15 GM TOPICAL POWDER TP SCH ×2 (09:44→21:59)
[2022-02-14] MEDS: CALCIUM 500MG/VIT-D 200 UNITS COMBO TABLET (FP) GT SCH ×2 (09:44→22:00)
[2022-02-14] MEDS: BACLOFEN 10 MG TABLET (FP) GT SCH ×2 (09:44→21:59)
[2022-02-14] MEDS: PANTOPRAZOLE SODIUM 40 MG VIAL IVPUSH SCH (09:45)
[2022-02-14] MEDS: FLUCONAZOLE 40 MG/ML SUSPENSION GT SCH (17:41)
[2022-02-14] MEDS: MONTELUKAST NA 10 MG TABLET GT SCH (22:00)
[2022-02-14] MEDS: PHENobarbital 20 MG/5 ML UNIT-DOSE CUP GT SCH (22:00)
[2022-02-15] MEDS: LACTATED RINGERS SOLUTION 1,000 ML/1,000 ML INFUS.BAG IV SCH (02:46)
[2022-02-15 07:15] VITALS: BP 111/64; PULSE 66; RESP 18; TEMP 98.1
[2022-02-15] MEDS: ALBUTEROL SO4 2.5/IPRATROPIUM 0.5 INH SOL 3 ML VIAL.NEB. NEB SCH ×3 (07:20→15:02)
[2022-02-15 08:19] LABS: BASO % 0.5 % (0-2.0); EOS % 3.2 % (0-4.5); HEMATOCRIT 40.9 % (32.4-45.2); HEMOGLOBIN 13.4 GM/dL (10.7-15.3); LYMPH % 35.8 % (8-40); MCH 27.5 pg (25.7-33.7); MCHC 32.8 g/dl (32.0-36.0); MEAN CELL VOLUME 83.7 fl (80-96); MEAN PLT VOLUME 8.5 fl (7.5-11.1); MONO % 11.1 % (3.8-10.2); NEUT % 49.4 % (42.8-82.8); PLATELET COUNT 318 10^3/uL (134-434); RBC 4.89 M/mm3 (3.60-5.2); RDW 15.3 % (11.6-15.6); WHITE BLOOD COUNT 6.5 K/mm3 (4.0-10.0)
[2022-02-15 08:44] LABS: ALBUMIN 2.6 g/dl (3.4-5.0); BLOOD UREA NITROGEN 6.8 mg/dL (7-18); CALCIUM 8.7 mg/dL (8.5-10.1); MAGNESIUM 1.8 mg/dL (1.8-2.4)
[2022-02-15 08:47] LABS: CREATININE 0.3 mg/dL (0.55-1.3); PHOSPHOROUS 3.2 mg/dL (2.5-4.9)
[2022-02-15 08:48] LABS: BILIRUBIN,TOTAL 0.2 mg/dL (0.2-1); TOT PROT 6.1 g/dl (6.4-8.2)
[2022-02-15] MEDS: NYSTATIN POWDER 100,000 UNITS/GM - 15 GM TOPICAL POWDER TP SCH (09:43)
[2022-02-15] MEDS: BACITRACIN 15 GM TUBE TOPICAL OINTMENT TP SCH (09:44)
[2022-02-15] MEDS: CALCIUM 500MG/VIT-D 200 UNITS COMBO TABLET (FP) GT SCH (09:44)
[2022-02-15] MEDS: BACLOFEN 10 MG TABLET (FP) GT SCH (09:44)
[2022-02-15] MEDS: ENOXAPARIN NA (PORCINE) 40 MG/0.4 ML DISP.SYRIN SQ SCH (09:44)
[2022-02-15] MEDS: predniSONE 20 MG TABLET (UD) GT SCH (09:44)
[2022-02-15] MEDS: PANTOPRAZOLE SODIUM 40 MG VIAL IVPUSH SCH (09:44)
== END 2022-02-15 15:02 | disposition home or self-care (01) | DRG 720 ==
LOC: JER 22:27 → JERBED 22:50 → JICU 02-06 03:25 → J7W 02-09 15:41
PROVIDERS: ADMIT Hospitalist; ATTEND Internal Medicine
PROC: 5A1935Z Respiratory Ventilation, Less than 24 Consecutive Hours (ICD-10-PCS; principal; 2022-02-05)
PROC: 0BH17EZ Insertion of Endotracheal Airway into Trachea, Via Natural or Artificial Opening (ICD-10-PCS; 2022-02-05)
PROC: 3E0G76Z Introduction of Nutritional Substance into Upper GI, Via Natural or Artificial Opening (ICD-10-PCS; 2022-02-05)
DX: A41.9 Sepsis, unspecified organism (principal); G40.909 Epilepsy, unspecified, not intractable, without status epilepticus; Q02 Microcephaly; G82.50 Quadriplegia, unspecified; J45.909 Unspecified asthma, uncomplicated; L91.0 Hypertrophic scar; R62.50 Unspecified lack of expected normal physiological development in childhood; I45.81 Long QT syndrome; J96.01 Acute respiratory failure with hypoxia; J45.901 Unspecified asthma with (acute) exacerbation; J69.0 Pneumonitis due to inhalation of food and vomit; I25.10 Atherosclerotic heart disease of native coronary artery without angina pectoris; E16.2 Hypoglycemia, unspecified; K94.29 Other complications of gastrostomy; Y83.8 Other surgical procedures as the cause of abnormal reaction of the patient, or of later complication, without mention of misadventure at the time of the procedure
CPT/HCPCS: 0241U-QW; 36415; 36600; 71045-TC-FY; 74018-TC-FY; 74150-TC; 80053; 81003; 82553; 82803; 82962; 83605; 83735; 83880; 84100; 84484; 85025; 85610; 85730; 87040; 87086; 87633; 93005; 93010; 94002; 94640; 99291; 99292; C9803-CS; G0480; J0475; J1100; U0003; U0005

== ENCOUNTER 2022-04-11 19:13 | Inpatient (IN) | payer OTHER ==
[2022-04-11] MEDS ORDERED: ALBUTEROL SO4 0.083% IH SOL 2.5 MG/3 ML VIAL.NEB. NEB ONE ×2 (19:30→20:57)
[2022-04-11] MEDS ORDERED: MAGNESIUM SULFATE IN WATER 2 GM/50 ML IVPB IVPB ONE (19:35)
[2022-04-11] MEDS ORDERED: SODIUM CHLORIDE IV ONE (19:55)
[2022-04-11] MEDS ORDERED: PIPERACILLIN/TAZOB 4.5 GM 4.5 GM in DEXTROSE 5%-WATER 100 ML IVPB ONE (19:57)
[2022-04-11] MEDS ORDERED: VANCOMYCIN 1 GM in D5W (PRE-DOCKED) 1,000 MG/250 ML IVPB ONE (19:57)
[2022-04-11] MEDS ORDERED: ACETAMINOPHEN 1000 MG/100 ML BAG IVPB ONE (19:57)
[2022-04-11 20:28] LABS: BASO % 0.5 % (0-2.0); EOS % 3.6 % (0-4.5); HEMATOCRIT 44.8 % (32.4-45.2); HEMOGLOBIN 14.3 GM/dL (10.7-15.3); MCH 26.9 pg (25.7-33.7); MCHC 31.9 g/dl (32.0-36.0); MEAN CELL VOLUME 84.3 fl (80-96); MEAN PLT VOLUME 8.9 fl (7.5-11.1); MONO % 3.6 % (3.8-10.2); NEUT % 84.3 % (42.8-82.8); PLATELET COUNT 346 10^3/uL (134-434); RBC 5.31 M/mm3 (3.60-5.2); RDW 14.6 % (11.6-15.6); WHITE BLOOD COUNT 16.9 K/mm3 (4.0-10.0)
[2022-04-11 20:43] LABS: INR 1.13 (0.83-1.09)
[2022-04-11 20:45] LABS: ACTIVATED PTT 31.4 SECONDS (25.2-36.5)
[2022-04-11] MEDS ORDERED: ACETAMINOPHEN INJECTION 100 ML IVPB ONE (20:48)
[2022-04-11] MEDS ORDERED: PIPERACILLIN/TAZOB 4.5 GM 4.5 GM/100 ML BAG IVPB ONE (20:49)
[2022-04-11] MEDS ORDERED: VANCOMYCIN/WATER FOR INJ (PEG) 1,000 MG/200 ML BAG IVPB ONE (20:49)
[2022-04-11 20:50] LABS: ALBUMIN 3.3 g/dl (3.4-5.0); BLOOD UREA NITROGEN 13.3 mg/dL (7-18); CALCIUM 9.4 mg/dL (8.5-10.1); MAGNESIUM 3.6 mg/dL (1.8-2.4)
[2022-04-11] MEDS: ALBUTEROL SO4 2.5/IPRATROPIUM 0.5 INH SOL 3 ML VIAL.NEB. NEB SCH ×2 (20:50→21:16)
[2022-04-11 20:51] LABS: ARTERIAL BLD GAS O2 SATURATION 99.4 % (95-98); ARTERIAL BLOOD GAS BASE EXCESS -0.2 mmol/L (-2-2); ARTERIAL BLOOD GAS PO2 197.8 mmHg (80-100); ARTERIAL BLOOD GAS pH 7.441 (7.350-7.450)
[2022-04-11] MEDS: ALBUTEROL SO4 0.083% IH SOL 2.5 MG/3 ML VIAL.NEB. NEB SCH ×2 (20:51→21:16)
[2022-04-11 20:54] LABS: CREATININE 0.4 mg/dL (0.55-1.3)
[2022-04-11 20:55] LABS: BILIRUBIN,TOTAL 0.1 mg/dL (0.2-1); TOT PROT 7.6 g/dl (6.4-8.2)
[2022-04-12] MEDS ORDERED: VANCOMYCIN 500 MG VIAL (RESTRICTED TO ID ONLY) ONE ×2 (04:37→09:10)
[2022-04-12] MEDS ORDERED: MEROPENEM 1 GM VIAL (RESTRICTED TO ID) IVPB ONE ×2 (04:37→09:10)
[2022-04-12] MEDS: MEROPENEM 1 GM in DEXTROSE 5%-WATER 100 ML IVPB SCH ×2 (04:48→09:46)
[2022-04-12] MEDS: VANCOMYCIN 500 MG in DEXTROSE 5%-WATER 100 ML IVPB SCH ×2 (04:48→10:03)
[2022-04-12] MEDS ORDERED: ENOXAPARIN NA (PORCINE) 40 MG/0.4 ML DISP.SYRIN SQ ONE (09:11)
[2022-04-12] MEDS ORDERED: BISACODYL 10 MG SUPP.RECT RC PRN (09:35)
[2022-04-12] MEDS: ENOXAPARIN NA (PORCINE) 40 MG/0.4 ML DISP.SYRIN SQ SCH (09:46)
[2022-04-12] MEDS: INSULIN SLIDING SCALE (NOVOLOG) 1 VIAL SQ SCH ×4 (09:46→23:18)
[2022-04-12] MEDS ORDERED: LEVOTHYROXINE NA 25 MCG TABLET (FP) ONE (09:48)
[2022-04-12] MEDS ORDERED: VANCOMYCIN 500 MG in DEXTROSE 5%-WATER 100 ML IVPB SCH (10:00)
[2022-04-12] MEDS ORDERED: VANCOMYCIN 1 GM in D5W (PRE-DOCKED) 1,000 MG/250 ML IVPB SCH (10:00)
[2022-04-12] MEDS ORDERED: MEROPENEM 1 GM in DEXTROSE 5%-WATER 100 ML IVPB SCH (10:00)
[2022-04-12] MEDS: LEVOTHYROXINE NA 25 MCG TABLET (FP) PO SCH (12:22)
[2022-04-12] MEDS: FAMOTIDINE 40 MG/5 ML ORAL SUSPENSION GT SCH (12:22)
[2022-04-12 12:54] LABS: HEMOGLOBIN 13.1 GM/dL (10.7-15.3); MCH 27.9 pg (25.7-33.7); MCHC 32.1 g/dl (32.0-36.0); MEAN CELL VOLUME 86.9 fl (80-96); MEAN PLT VOLUME 9.2 fl (7.5-11.1); PLATELET COUNT 137 10^3/uL (134-434); RBC 4.71 M/mm3 (3.60-5.2); RDW 14.9 % (11.6-15.6); WHITE BLOOD COUNT 12.1 K/mm3 (4.0-10.0)
[2022-04-12 13:14] LABS: CHLORIDE 119 mmol/L (98-107); SODIUM 144 mmol/L (136-145)
[2022-04-12 13:17] LABS: ANION GAP 8 MMOL/L (8-16); BLOOD UREA NITROGEN 7.4 mg/dL (7-18); CO2 17 mmol/L (21-32); GLUCOSE,RANDOM 69 mg/dL (74-106); MAGNESIUM 2.6 mg/dL (1.8-2.4)
[2022-04-12 13:20] LABS: CREATININE < 0.2 mg/dL (0.55-1.3); PHOSPHOROUS 2.1 mg/dL (2.5-4.9)
[2022-04-12 13:21] LABS: CALCIUM 6.2 mg/dL (8.5-10.1)
[2022-04-12 13:42] LABS: ANISOCYTOSIS 3+; MACROCYTOSIS 0
[2022-04-12] MEDS ORDERED: FLU VACC QS2022-23(6MOS UP)/PF 60 MCG/0.5 ML SYRINGE IM ONE (14:00)
[2022-04-12] MEDS ORDERED: POTASSIUM CHLORIDE ORAL LIQUID 20 MEQ/15 ML GT ONE (14:46)
[2022-04-12] MEDS: ALBUTEROL SO4 2.5/IPRATROPIUM 0.5 INH SOL 3 ML VIAL.NEB. NEB SCH ×2 (15:55→20:28)
[2022-04-12] MEDS ORDERED: PIPERACILLIN/TAZOBACTAM 3.375 GM VIAL IVPB ONE (19:58)
[2022-04-12] MEDS: PIPERACILLIN/TAZOB 3.375 GM 3.375 GM in DEXTROSE 5%-WATER - 50 ML IVPB SCH (20:13)
[2022-04-12] MEDS ORDERED: PATIENT'S OWN MEDICATION (NON-FORMULARY) (Phenobarbital [Phenobarbital] 64.8 MG Tablet) GT SCH (22:00)
[2022-04-12] MEDS: PHENobarbital 30 MG TABLET GT SCH (22:33)
[2022-04-12] MEDS: MONTELUKAST NA 10 MG TABLET GT SCH (22:34)
[2022-04-13] MEDS: ALBUTEROL SO4 2.5/IPRATROPIUM 0.5 INH SOL 3 ML VIAL.NEB. NEB SCH ×6 (00:05→20:05)
[2022-04-13] MEDS: PIPERACILLIN/TAZOB 3.375 GM 3.375 GM in DEXTROSE 5%-WATER - 50 ML IVPB SCH ×3 (03:27→17:35)
[2022-04-13] MEDS: LEVOTHYROXINE NA 25 MCG TABLET (FP) PO SCH (07:14)
[2022-04-13] MEDS: INSULIN SLIDING SCALE (NOVOLOG) 1 VIAL SQ SCH ×4 (07:15→21:58)
[2022-04-13 09:52] LABS: BASO % 0.5 % (0-2.0); EOS % 9.6 % (0-4.5); HEMATOCRIT 44.4 % (32.4-45.2); HEMOGLOBIN 14.2 GM/dL (10.7-15.3); LYMPH % 9.7 % (8-40); MCH 27.4 pg (25.7-33.7); MCHC 32.1 g/dl (32.0-36.0); MEAN CELL VOLUME 85.4 fl (80-96); MONO % 6.7 % (3.8-10.2); NEUT % 73.5 % (42.8-82.8); PLATELET COUNT 309 10^3/uL (134-434); RBC 5.19 M/mm3 (3.60-5.2); RDW 14.4 % (11.6-15.6)
[2022-04-13] MEDS: ENOXAPARIN NA (PORCINE) 40 MG/0.4 ML DISP.SYRIN SQ SCH (10:00)
[2022-04-13] MEDS: FAMOTIDINE 40 MG/5 ML ORAL SUSPENSION GT SCH (10:01)
[2022-04-13 10:21] LABS: BLOOD UREA NITROGEN 13.8 mg/dL (7-18)
[2022-04-13 10:24] LABS: CREATININE 0.4 mg/dL (0.55-1.3)
[2022-04-13 10:25] LABS: CALCIUM 9.1 mg/dL (8.5-10.1)
[2022-04-13] MEDS: MONTELUKAST NA 10 MG TABLET GT SCH (21:58)
[2022-04-13] MEDS: PHENobarbital 30 MG TABLET GT SCH (21:58)
[2022-04-14] MEDS: PIPERACILLIN/TAZOB 3.375 GM 3.375 GM in DEXTROSE 5%-WATER - 50 ML IVPB SCH ×3 (01:59→18:04)
[2022-04-14] MEDS: ALBUTEROL SO4 2.5/IPRATROPIUM 0.5 INH SOL 3 ML VIAL.NEB. NEB SCH ×7 (04:00→23:50)
[2022-04-14] MEDS: LEVOTHYROXINE NA 25 MCG TABLET (FP) PO SCH (06:47)
[2022-04-14] MEDS: INSULIN SLIDING SCALE (NOVOLOG) 1 VIAL SQ SCH ×4 (06:54→21:30)
[2022-04-14] MEDS: MULTIVITAMINS (DAILY MVI) TABLET (FP) PO SCH (10:41)
[2022-04-14] MEDS: ENOXAPARIN NA (PORCINE) 40 MG/0.4 ML DISP.SYRIN SQ SCH (10:41)
[2022-04-14] MEDS: FAMOTIDINE 40 MG/5 ML ORAL SUSPENSION GT SCH (10:43)
[2022-04-14] MEDS: PHENobarbital 30 MG TABLET GT SCH (21:30)
[2022-04-14] MEDS: MONTELUKAST NA 10 MG TABLET GT SCH (21:30)
[2022-04-15] MEDS: PIPERACILLIN/TAZOB 3.375 GM 3.375 GM in DEXTROSE 5%-WATER - 50 ML IVPB SCH ×3 (02:08→17:47)
[2022-04-15] MEDS: ALBUTEROL SO4 2.5/IPRATROPIUM 0.5 INH SOL 3 ML VIAL.NEB. NEB SCH ×5 (03:48→20:56)
[2022-04-15] MEDS: INSULIN SLIDING SCALE (NOVOLOG) 1 VIAL SQ SCH ×4 (05:59→21:59)
[2022-04-15] MEDS: LEVOTHYROXINE NA 25 MCG TABLET (FP) PO SCH (05:59)
[2022-04-15 10:40] LABS: BASO % 0.6 % (0-2.0); EOS % 18.2 % (0-4.5); HEMATOCRIT 44.6 % (32.4-45.2); HEMOGLOBIN 14.4 GM/dL (10.7-15.3); LYMPH % 13.9 % (8-40); MCH 27.1 pg (25.7-33.7); MCHC 32.2 g/dl (32.0-36.0); MEAN CELL VOLUME 84.3 fl (80-96); MONO % 9.4 % (3.8-10.2); NEUT % 57.9 % (42.8-82.8); PLATELET COUNT 313 10^3/uL (134-434); RBC 5.29 M/mm3 (3.60-5.2); RDW 14.4 % (11.6-15.6); WHITE BLOOD COUNT 7.4 K/mm3 (4.0-10.0)
[2022-04-15] MEDS: ENOXAPARIN NA (PORCINE) 40 MG/0.4 ML DISP.SYRIN SQ SCH (10:59)
[2022-04-15] MEDS: MULTIVITAMINS (DAILY MVI) TABLET (FP) PO SCH (11:00)
[2022-04-15] MEDS: FAMOTIDINE 40 MG/5 ML ORAL SUSPENSION GT SCH (11:00)
[2022-04-15 11:05] LABS: BLOOD UREA NITROGEN 9.7 mg/dL (7-18); CALCIUM 8.9 mg/dL (8.5-10.1); MAGNESIUM 2.2 mg/dL (1.8-2.4)
[2022-04-15 11:08] LABS: PHOSPHOROUS 3.2 mg/dL (2.5-4.9)
[2022-04-15 11:10] LABS: CREATININE 0.3 mg/dL (0.55-1.3)
[2022-04-15] MEDS: MONTELUKAST NA 10 MG TABLET GT SCH (21:59)
[2022-04-15] MEDS: PHENobarbital 30 MG TABLET GT SCH (21:59)
[2022-04-16] MEDS: ALBUTEROL SO4 2.5/IPRATROPIUM 0.5 INH SOL 3 ML VIAL.NEB. NEB SCH ×7 (00:44→23:14)
[2022-04-16] MEDS: PIPERACILLIN/TAZOB 3.375 GM 3.375 GM in DEXTROSE 5%-WATER - 50 ML IVPB SCH ×3 (02:45→17:26)
[2022-04-16] MEDS: LEVOTHYROXINE NA 25 MCG TABLET (FP) PO SCH (07:27)
[2022-04-16] MEDS: INSULIN SLIDING SCALE (NOVOLOG) 1 VIAL SQ SCH ×4 (07:27→22:37)
[2022-04-16 10:18] LABS: BASO % 0.7 % (0-2.0); HEMATOCRIT 44.2 % (32.4-45.2); HEMOGLOBIN 14.4 GM/dL (10.7-15.3); LYMPH % 17.6 % (8-40); MCH 27.4 pg (25.7-33.7); MCHC 32.6 g/dl (32.0-36.0); MEAN PLT VOLUME 8.6 fl (7.5-11.1); NEUT % 54.7 % (42.8-82.8); PLATELET COUNT 310 10^3/uL (134-434); RBC 5.26 M/mm3 (3.60-5.2); RDW 14.5 % (11.6-15.6); WHITE BLOOD COUNT 7.6 K/mm3 (4.0-10.0)
[2022-04-16] MEDS: FAMOTIDINE 40 MG/5 ML ORAL SUSPENSION GT SCH (10:28)
[2022-04-16] MEDS: ENOXAPARIN NA (PORCINE) 40 MG/0.4 ML DISP.SYRIN SQ SCH (10:28)
[2022-04-16] MEDS: MULTIVITAMINS (DAILY MVI) TABLET (FP) PO SCH (10:29)
[2022-04-16 11:01] LABS: BLOOD UREA NITROGEN 10.4 mg/dL (7-18); CALCIUM 9.6 mg/dL (8.5-10.1)
[2022-04-16 11:05] LABS: CREATININE 0.3 mg/dL (0.55-1.3)
[2022-04-16] MEDS ORDERED: INSULIN (NOVOLOG) ASPART 100 UNITS/ML 10ML VIAL ONE (16:50)
[2022-04-16] MEDS: MONTELUKAST NA 10 MG TABLET GT SCH (22:37)
[2022-04-16] MEDS: PHENobarbital 30 MG TABLET GT SCH (22:38)
[2022-04-17] MEDS: PIPERACILLIN/TAZOB 3.375 GM 3.375 GM in DEXTROSE 5%-WATER - 50 ML IVPB SCH ×3 (02:30→17:50)
[2022-04-17] MEDS: ALBUTEROL SO4 2.5/IPRATROPIUM 0.5 INH SOL 3 ML VIAL.NEB. NEB SCH ×2 (03:48→08:19)
[2022-04-17] MEDS: INSULIN SLIDING SCALE (NOVOLOG) 1 VIAL SQ SCH ×4 (07:09→22:17)
[2022-04-17] MEDS: LEVOTHYROXINE NA 25 MCG TABLET (FP) PO SCH (07:09)
[2022-04-17 10:02] LABS: HEMATOCRIT 41.3 % (32.4-45.2); HEMOGLOBIN 13.7 GM/dL (10.7-15.3); MCH 27.9 pg (25.7-33.7); MCHC 33.2 g/dl (32.0-36.0); MEAN PLT VOLUME 8.4 fl (7.5-11.1); PLATELET COUNT 292 10^3/uL (134-434); RBC 4.91 M/mm3 (3.60-5.2); RDW 14.5 % (11.6-15.6); WHITE BLOOD COUNT 6.3 K/mm3 (4.0-10.0)
[2022-04-17 10:06] LABS: CALCIUM 9.3 mg/dL (8.5-10.1)
[2022-04-17 10:07] LABS: ALBUMIN 2.9 g/dl (3.4-5.0)
[2022-04-17 10:10] LABS: CREATININE 0.4 mg/dL (0.55-1.3)
[2022-04-17 10:11] LABS: TOT PROT 6.8 g/dl (6.4-8.2)
[2022-04-17 10:12] LABS: BILIRUBIN,TOTAL 0.2 mg/dL (0.2-1)
[2022-04-17] MEDS: MULTIVITAMINS (DAILY MVI) TABLET (FP) PO SCH (10:53)
[2022-04-17 11:13] LABS: ANISOCYTOSIS 1+; MACROCYTOSIS 0
[2022-04-17] MEDS: FAMOTIDINE 40 MG/5 ML ORAL SUSPENSION GT SCH (11:29)
[2022-04-17] MEDS: ENOXAPARIN NA (PORCINE) 40 MG/0.4 ML DISP.SYRIN SQ SCH (11:37)
[2022-04-17 14:57] VITALS: BMI 21.3
[2022-04-17] MEDS ORDERED: ALBUTEROL SO4 2.5/IPRATROPIUM 0.5 INH SOL 3 ML VIAL.NEB. NEB ONE (15:47)
[2022-04-17] MEDS: MONTELUKAST NA 10 MG TABLET GT SCH (22:17)
[2022-04-17] MEDS: PHENobarbital 30 MG TABLET GT SCH (22:18)
[2022-04-18] MEDS: PIPERACILLIN/TAZOB 3.375 GM 3.375 GM in DEXTROSE 5%-WATER - 50 ML IVPB SCH ×3 (02:55→17:34)
[2022-04-18] MEDS: ALBUTEROL SO4 2.5/IPRATROPIUM 0.5 INH SOL 3 ML VIAL.NEB. NEB PRN ×2 (05:21→11:26)
[2022-04-18] MEDS ORDERED: LEVOTHYROXINE NA 25 MCG TABLET (FP) GT SCH (07:16)
[2022-04-18] MEDS: INSULIN SLIDING SCALE (NOVOLOG) 1 VIAL SQ SCH ×2 (07:17→11:53)
[2022-04-18] MEDS ORDERED: MULTIVIT-MINERALS ORAL LIQUID PO SCH ×2 (07:17)
[2022-04-18] MEDS: LEVOTHYROXINE NA 25 MCG TABLET (FP) GT SCH (07:21)
[2022-04-18] MEDS: LEVOTHYROXINE NA 25 MCG TABLET (FP) PO SCH (07:21)
[2022-04-18 10:17] LABS: BASO % 0.7 % (0-2.0); EOS % 9.8 % (0-4.5); HEMATOCRIT 43.6 % (32.4-45.2); HEMOGLOBIN 14.2 GM/dL (10.7-15.3); LYMPH % 13.4 % (8-40); MCH 27.2 pg (25.7-33.7); MCHC 32.7 g/dl (32.0-36.0); MEAN CELL VOLUME 83.3 fl (80-96); MEAN PLT VOLUME 8.8 fl (7.5-11.1); MONO % 9.2 % (3.8-10.2); NEUT % 66.9 % (42.8-82.8); PLATELET COUNT 312 10^3/uL (134-434); RBC 5.23 M/mm3 (3.60-5.2); RDW 14.3 % (11.6-15.6); WHITE BLOOD COUNT 8.8 K/mm3 (4.0-10.0)
[2022-04-18 10:40] LABS: BLOOD UREA NITROGEN 17.6 mg/dL (7-18); CALCIUM 9.6 mg/dL (8.5-10.1)
[2022-04-18 10:42] LABS: CREATININE 0.4 mg/dL (0.55-1.3)
[2022-04-18] MEDS: ENOXAPARIN NA (PORCINE) 40 MG/0.4 ML DISP.SYRIN SQ SCH (11:10)
[2022-04-18] MEDS: FAMOTIDINE 40 MG/5 ML ORAL SUSPENSION GT SCH (11:15)
[2022-04-18] MEDS: MULTIVIT-MINERALS ORAL LIQUID GT SCH (11:17)
[2022-04-18] MEDS: ALBUTEROL SO4 2.5/IPRATROPIUM 0.5 INH SOL 3 ML VIAL.NEB. NEB SCH ×2 (15:48→20:50)
[2022-04-18] MEDS: MONTELUKAST NA 10 MG TABLET GT SCH (21:24)
[2022-04-18] MEDS: PHENobarbital 30 MG TABLET GT SCH (21:24)
[2022-04-19] MEDS: PIPERACILLIN/TAZOB 3.375 GM 3.375 GM in DEXTROSE 5%-WATER - 50 ML IVPB SCH ×2 (01:38→10:35)
[2022-04-19] MEDS: LEVOTHYROXINE NA 25 MCG TABLET (FP) GT SCH (06:00)
[2022-04-19] MEDS: ALBUTEROL SO4 2.5/IPRATROPIUM 0.5 INH SOL 3 ML VIAL.NEB. NEB SCH ×4 (07:47→20:35)
[2022-04-19] MEDS: FAMOTIDINE 40 MG/5 ML ORAL SUSPENSION GT SCH (10:35)
[2022-04-19] MEDS: ENOXAPARIN NA (PORCINE) 40 MG/0.4 ML DISP.SYRIN SQ SCH (10:35)
[2022-04-19] MEDS: MULTIVIT-MINERALS ORAL LIQUID GT SCH (10:36)
[2022-04-19] MEDS: MONTELUKAST NA 10 MG TABLET GT SCH (22:16)
[2022-04-19] MEDS: PHENobarbital 30 MG TABLET GT SCH (22:16)
[2022-04-20] MEDS: LEVOTHYROXINE NA 25 MCG TABLET (FP) GT SCH (06:24)
[2022-04-20] MEDS: ALBUTEROL SO4 2.5/IPRATROPIUM 0.5 INH SOL 3 ML VIAL.NEB. NEB SCH ×4 (07:38→20:26)
[2022-04-20] MEDS: ENOXAPARIN NA (PORCINE) 40 MG/0.4 ML DISP.SYRIN SQ SCH (10:58)
[2022-04-20] MEDS: FAMOTIDINE 40 MG/5 ML ORAL SUSPENSION GT SCH (11:16)
[2022-04-20] MEDS: MULTIVIT-MINERALS ORAL LIQUID GT SCH (11:16)
[2022-04-20 13:16] LABS: BASO % 0.6 % (0-2.0); EOS % 12.2 % (0-4.5); HEMATOCRIT 39.8 % (32.4-45.2); HEMOGLOBIN 13.3 GM/dL (10.7-15.3); LYMPH % 15.9 % (8-40); MCHC 33.5 g/dl (32.0-36.0); MEAN CELL VOLUME 83.6 fl (80-96); MEAN PLT VOLUME 8.6 fl (7.5-11.1); MONO % 9.6 % (3.8-10.2); NEUT % 61.7 % (42.8-82.8); PLATELET COUNT 263 10^3/uL (134-434); RBC 4.76 M/mm3 (3.60-5.2); RDW 14.1 % (11.6-15.6); WHITE BLOOD COUNT 6.9 K/mm3 (4.0-10.0)
[2022-04-20 15:01] LABS: ALBUMIN 2.9 g/dl (3.4-5.0); BILIRUBIN,TOTAL 0.2 mg/dL (0.2-1); BLOOD UREA NITROGEN 13.2 mg/dL (7-18); CREATININE 0.4 mg/dL (0.55-1.3); TOT PROT 6.8 g/dl (6.4-8.2)
[2022-04-20] MEDS: PHENobarbital 30 MG TABLET GT SCH (23:38)
[2022-04-20] MEDS: MONTELUKAST NA 10 MG TABLET GT SCH (23:40)
[2022-04-21] MEDS ORDERED: ALBUTEROL SO4 2.5/IPRATROPIUM 0.5 INH SOL 3 ML VIAL.NEB. NEB PRN (03:06)
[2022-04-21] MEDS: LEVOTHYROXINE NA 25 MCG TABLET (FP) GT SCH (06:27)
[2022-04-21] MEDS: ALBUTEROL SO4 2.5/IPRATROPIUM 0.5 INH SOL 3 ML VIAL.NEB. NEB SCH ×4 (09:25→20:25)
[2022-04-21] MEDS: MULTIVIT-MINERALS ORAL LIQUID GT SCH (10:58)
[2022-04-21] MEDS: ENOXAPARIN NA (PORCINE) 40 MG/0.4 ML DISP.SYRIN SQ SCH (10:59)
[2022-04-21] MEDS: FAMOTIDINE 40 MG/5 ML ORAL SUSPENSION GT SCH (10:59)
[2022-04-21] MEDS: MONTELUKAST NA 10 MG TABLET GT SCH (23:43)
[2022-04-21] MEDS: PHENobarbital 30 MG TABLET GT SCH (23:43)
[2022-04-22] MEDS: LEVOTHYROXINE NA 25 MCG TABLET (FP) GT SCH (06:49)
[2022-04-22] MEDS: ALBUTEROL SO4 2.5/IPRATROPIUM 0.5 INH SOL 3 ML VIAL.NEB. NEB SCH ×4 (08:04→20:41)
[2022-04-22] MEDS: ENOXAPARIN NA (PORCINE) 40 MG/0.4 ML DISP.SYRIN SQ SCH (10:16)
[2022-04-22] MEDS: MULTIVIT-MINERALS ORAL LIQUID GT SCH (10:16)
[2022-04-22] MEDS: FAMOTIDINE 40 MG/5 ML ORAL SUSPENSION GT SCH (10:16)
[2022-04-22] MEDS ORDERED: ALBUTEROL SO4 2.5/IPRATROPIUM 0.5 INH SOL 3 ML VIAL.NEB. NEB SCH (12:00)
[2022-04-22] MEDS ORDERED: ALBUTEROL SO4 2.5/IPRATROPIUM 0.5 INH SOL 3 ML VIAL.NEB. NEB ONE (20:16)
[2022-04-22] MEDS ORDERED: ACETAMINOPHEN 1000 MG/100 ML BAG IVPB ONE ×2 (20:22→20:23)
[2022-04-22 21:57] LABS: BASO % 0.4 % (0-2.0); EOS % 6.6 % (0-4.5); HEMATOCRIT 45.7 % (32.4-45.2); HEMOGLOBIN 14.9 GM/dL (10.7-15.3); LYMPH % 15.5 % (8-40); MCH 27.2 pg (25.7-33.7); MCHC 32.5 g/dl (32.0-36.0); MEAN CELL VOLUME 83.7 fl (80-96); MEAN PLT VOLUME 9.5 fl (7.5-11.1); MONO % 7.9 % (3.8-10.2); NEUT % 69.6 % (42.8-82.8); PLATELET COUNT 317 10^3/uL (134-434); RBC 5.46 M/mm3 (3.60-5.2); RDW 14.4 % (11.6-15.6); WHITE BLOOD COUNT 15.6 K/mm3 (4.0-10.0)
[2022-04-22] MEDS ORDERED: MEROPENEM 1 GM in DEXTROSE 5%-WATER 100 ML IVPB SCH (22:15)
[2022-04-22] MEDS ORDERED: CLINDAMYCIN 600MG PREMIX IVPB 600 MG/50 ML BAG IVPB SCH (22:15)
[2022-04-22 22:24] LABS: CALCIUM 9.3 mg/dL (8.5-10.1)
[2022-04-22 22:25] LABS: BLOOD UREA NITROGEN 17.8 mg/dL (7-18)
[2022-04-22 22:27] LABS: CREATININE 0.5 mg/dL (0.55-1.3)
[2022-04-22 22:29] LABS: BILIRUBIN,TOTAL 0.2 mg/dL (0.2-1); TOT PROT 8.1 g/dl (6.4-8.2)
[2022-04-22 22:32] LABS: ALBUMIN 3.6 g/dl (3.4-5.0)
[2022-04-22] MEDS: PHENobarbital 30 MG TABLET GT SCH (22:44)
[2022-04-22] MEDS: MONTELUKAST NA 10 MG TABLET GT SCH (22:45)
[2022-04-22] MEDS: PIPERACILLIN/TAZOB 3.375 GM 3.375 GM in DEXTROSE 5%-WATER - 50 ML IVPB SCH (23:20)
[2022-04-23] MEDS: PIPERACILLIN/TAZOB 3.375 GM 3.375 GM in DEXTROSE 5%-WATER - 50 ML IVPB SCH ×3 (04:13→18:31)
[2022-04-23] MEDS: LEVOTHYROXINE NA 25 MCG TABLET (FP) GT SCH (06:26)
[2022-04-23] MEDS: ALBUTEROL SO4 2.5/IPRATROPIUM 0.5 INH SOL 3 ML VIAL.NEB. NEB SCH ×4 (07:19→20:28)
[2022-04-23 09:59] LABS: BASO % 0.3 % (0-2.0); EOS % 10.2 % (0-4.5); HEMOGLOBIN 13.9 GM/dL (10.7-15.3); LYMPH % 9.9 % (8-40); MCH 27.7 pg (25.7-33.7); MCHC 33.1 g/dl (32.0-36.0); MEAN CELL VOLUME 83.9 fl (80-96); MONO % 9.3 % (3.8-10.2); NEUT % 70.3 % (42.8-82.8); PLATELET COUNT 262 10^3/uL (134-434); RBC 5.01 M/mm3 (3.60-5.2); RDW 14.3 % (11.6-15.6); WHITE BLOOD COUNT 12.7 K/mm3 (4.0-10.0)
[2022-04-23] MEDS: ENOXAPARIN NA (PORCINE) 40 MG/0.4 ML DISP.SYRIN SQ SCH (10:14)
[2022-04-23] MEDS: MULTIVIT-MINERALS ORAL LIQUID GT SCH (10:14)
[2022-04-23 10:23] LABS: CALCIUM 8.9 mg/dL (8.5-10.1)
[2022-04-23 10:24] LABS: BLOOD UREA NITROGEN 17.6 mg/dL (7-18)
[2022-04-23 10:27] LABS: CREATININE 0.5 mg/dL (0.55-1.3)
[2022-04-23] MEDS: FAMOTIDINE 40 MG/5 ML ORAL SUSPENSION GT SCH (10:36)
[2022-04-23] MEDS ORDERED: PIPERACILLIN/TAZOB 3.375 GM 3.375 GM in DEXTROSE 5%-WATER - 50 ML IVPB SCH (18:00)
[2022-04-23] MEDS: PHENobarbital 30 MG TABLET GT SCH (21:51)
[2022-04-23] MEDS: MONTELUKAST NA 10 MG TABLET GT SCH (21:52)
[2022-04-24] MEDS: PIPERACILLIN/TAZOB 3.375 GM 3.375 GM in DEXTROSE 5%-WATER - 50 ML IVPB SCH ×3 (02:08→18:24)
[2022-04-24] MEDS ORDERED: ALBUTEROL SO4 2.5/IPRATROPIUM 0.5 INH SOL 3 ML VIAL.NEB. NEB ONE (02:55)
[2022-04-24] MEDS: LEVOTHYROXINE NA 25 MCG TABLET (FP) GT SCH (06:07)
[2022-04-24] MEDS: ALBUTEROL SO4 2.5/IPRATROPIUM 0.5 INH SOL 3 ML VIAL.NEB. NEB SCH ×4 (07:34→20:11)
[2022-04-24 10:09] LABS: BASO % 0.3 % (0-2.0); EOS % 5.8 % (0-4.5); HEMATOCRIT 41.7 % (32.4-45.2); HEMOGLOBIN 13.7 GM/dL (10.7-15.3); LYMPH % 5.8 % (8-40); MCH 27.2 pg (25.7-33.7); MCHC 32.9 g/dl (32.0-36.0); MEAN CELL VOLUME 82.7 fl (80-96); MEAN PLT VOLUME 9.3 fl (7.5-11.1); MONO % 8.8 % (3.8-10.2); NEUT % 79.3 % (42.8-82.8); PLATELET COUNT 270 10^3/uL (134-434); RBC 5.05 M/mm3 (3.60-5.2); RDW 14.3 % (11.6-15.6); WHITE BLOOD COUNT 16.4 K/mm3 (4.0-10.0)
[2022-04-24 10:30] LABS: CALCIUM 9.2 mg/dL (8.5-10.1)
[2022-04-24 10:31] LABS: BLOOD UREA NITROGEN 15.2 mg/dL (7-18)
[2022-04-24 10:33] LABS: CREATININE 0.4 mg/dL (0.55-1.3)
[2022-04-24] MEDS: FAMOTIDINE 40 MG/5 ML ORAL SUSPENSION GT SCH (11:05)
[2022-04-24] MEDS: MULTIVIT-MINERALS ORAL LIQUID GT SCH (11:06)
[2022-04-24] MEDS: ENOXAPARIN NA (PORCINE) 40 MG/0.4 ML DISP.SYRIN SQ SCH (11:06)
[2022-04-24 11:20] LABS: ARTERIAL BLD GAS O2 SATURATION 97.5 % (95-98); ARTERIAL BLOOD GAS BASE EXCESS 4.5 mmol/L (-2-2); ARTERIAL BLOOD GAS PO2 97.8 mmHg (80-100); ARTERIAL BLOOD GAS pH 7.424 (7.350-7.450)
[2022-04-24 11:22] LABS: ALLENS TEST POSITIVE
[2022-04-24] MEDS: BUDESONIDE 0.5 MG/2 ML INH SUSP VIAL NEB SCH ×2 (12:00→20:11)
[2022-04-24] MEDS ORDERED: methylPREDNISolone NA SUCC 40 MG/1 ML VIAL IVPUSH ONE (12:57)
[2022-04-24] MEDS: guaiFENesin/D-METHORPHAN HB 10 ML UNIT-DOSE CUPS PO PRN (13:21)
[2022-04-24] MEDS: ACETAMINOPHEN 650 MG/20.3 ML ORAL SOLUTION (CUPS) GT PRN (13:21)
[2022-04-24] MEDS: PHENobarbital 30 MG TABLET GT SCH (22:46)
[2022-04-24] MEDS: MONTELUKAST NA 10 MG TABLET GT SCH (22:46)
[2022-04-25] MEDS: PIPERACILLIN/TAZOB 3.375 GM 3.375 GM in DEXTROSE 5%-WATER - 50 ML IVPB SCH ×3 (02:26→17:47)
[2022-04-25] MEDS: LEVOTHYROXINE NA 25 MCG TABLET (FP) GT SCH (06:42)
[2022-04-25] MEDS: ALBUTEROL SO4 2.5/IPRATROPIUM 0.5 INH SOL 3 ML VIAL.NEB. NEB SCH ×4 (07:23→20:08)
[2022-04-25] MEDS: BUDESONIDE 0.5 MG/2 ML INH SUSP VIAL NEB SCH ×2 (07:23→20:09)
[2022-04-25 09:24] LABS: CALCIUM 9.1 mg/dL (8.5-10.1)
[2022-04-25 09:25] LABS: BLOOD UREA NITROGEN 9.2 mg/dL (7-18)
[2022-04-25 09:27] LABS: CREATININE 0.3 mg/dL (0.55-1.3)
[2022-04-25] MEDS: MULTIVIT-MINERALS ORAL LIQUID GT SCH (11:03)
[2022-04-25] MEDS: FAMOTIDINE 40 MG/5 ML ORAL SUSPENSION GT SCH (11:03)
[2022-04-25] MEDS: ENOXAPARIN NA (PORCINE) 40 MG/0.4 ML DISP.SYRIN SQ SCH (11:04)
[2022-04-25 13:08] LABS: BASO % 0.3 % (0-2.0); HEMATOCRIT 42.9 % (32.4-45.2); HEMOGLOBIN 14.5 GM/dL (10.7-15.3); LYMPH % 15.2 % (8-40); MCH 28.1 pg (25.7-33.7); MCHC 33.8 g/dl (32.0-36.0); MEAN CELL VOLUME 83.1 fl (80-96); MEAN PLT VOLUME 9.4 fl (7.5-11.1); MONO % 7.9 % (3.8-10.2); NEUT % 71.6 % (42.8-82.8); PLATELET COUNT 332 10^3/uL (134-434); RBC 5.17 M/mm3 (3.60-5.2); RDW 14.4 % (11.6-15.6); WHITE BLOOD COUNT 13.7 K/mm3 (4.0-10.0)
[2022-04-25 13:12] LABS: ARTERIAL BLD GAS O2 SATURATION 96.6 % (95-98); ARTERIAL BLOOD GAS pH 7.465 (7.350-7.450)
[2022-04-25 13:14] LABS: ALLENS TEST POSITIVE
[2022-04-25] MEDS: PHENobarbital 30 MG TABLET GT SCH (21:27)
[2022-04-25] MEDS: MONTELUKAST NA 10 MG TABLET GT SCH (21:28)
[2022-04-26] MEDS: ALBUTEROL SO4 2.5/IPRATROPIUM 0.5 INH SOL 3 ML VIAL.NEB. NEB SCH ×6 (00:25→20:02)
[2022-04-26] MEDS: PIPERACILLIN/TAZOB 3.375 GM 3.375 GM in DEXTROSE 5%-WATER - 50 ML IVPB SCH ×3 (01:11→17:09)
[2022-04-26] MEDS: LEVOTHYROXINE NA 25 MCG TABLET (FP) GT SCH (06:16)
[2022-04-26] MEDS: BUDESONIDE 0.5 MG/2 ML INH SUSP VIAL NEB SCH ×2 (07:55→20:02)
[2022-04-26] MEDS: guaiFENesin/D-METHORPHAN HB 10 ML UNIT-DOSE CUPS PO PRN (09:50)
[2022-04-26] MEDS: ACETAMINOPHEN 650 MG/20.3 ML ORAL SOLUTION (CUPS) GT PRN (09:50)
[2022-04-26] MEDS: FAMOTIDINE 40 MG/5 ML ORAL SUSPENSION GT SCH (09:51)
[2022-04-26] MEDS: ENOXAPARIN NA (PORCINE) 40 MG/0.4 ML DISP.SYRIN SQ SCH (09:51)
[2022-04-26] MEDS: MULTIVIT-MINERALS ORAL LIQUID GT SCH (09:52)
[2022-04-26 09:54] LABS: BASO % 0.4 % (0-2.0); EOS % 11.3 % (0-4.5); HEMATOCRIT 39.2 % (32.4-45.2); HEMOGLOBIN 13.1 GM/dL (10.7-15.3); LYMPH % 12.8 % (8-40); MCH 27.7 pg (25.7-33.7); MCHC 33.4 g/dl (32.0-36.0); MEAN CELL VOLUME 82.9 fl (80-96); MEAN PLT VOLUME 8.6 fl (7.5-11.1); MONO % 7.6 % (3.8-10.2); NEUT % 67.9 % (42.8-82.8); PLATELET COUNT 268 10^3/uL (134-434); RBC 4.73 M/mm3 (3.60-5.2); RDW 14.4 % (11.6-15.6); WHITE BLOOD COUNT 8.5 K/mm3 (4.0-10.0)
[2022-04-26 10:24] LABS: CALCIUM 9.4 mg/dL (8.5-10.1)
[2022-04-26 10:26] LABS: BLOOD UREA NITROGEN 11.8 mg/dL (7-18)
[2022-04-26 10:29] LABS: CREATININE 0.3 mg/dL (0.55-1.3)
[2022-04-26] MEDS: MONTELUKAST NA 10 MG TABLET GT SCH (22:12)
[2022-04-26] MEDS: PHENobarbital 30 MG TABLET GT SCH (22:12)
[2022-04-27] MEDS: ALBUTEROL SO4 2.5/IPRATROPIUM 0.5 INH SOL 3 ML VIAL.NEB. NEB SCH ×6 (00:30→19:41)
[2022-04-27] MEDS: PIPERACILLIN/TAZOB 3.375 GM 3.375 GM in DEXTROSE 5%-WATER - 50 ML IVPB SCH ×2 (02:18→10:30)
[2022-04-27] MEDS: LEVOTHYROXINE NA 25 MCG TABLET (FP) GT SCH (06:49)
[2022-04-27] MEDS: BUDESONIDE 0.5 MG/2 ML INH SUSP VIAL NEB SCH ×2 (07:35→19:42)
[2022-04-27] MEDS: MULTIVIT-MINERALS ORAL LIQUID GT SCH (10:29)
[2022-04-27] MEDS: ENOXAPARIN NA (PORCINE) 40 MG/0.4 ML DISP.SYRIN SQ SCH (10:29)
[2022-04-27] MEDS: FAMOTIDINE 40 MG/5 ML ORAL SUSPENSION GT SCH (10:29)
[2022-04-27] MEDS: CEFTAZIDIME PENTAHYDRATE 1 GM in DEXTROSE 5%-WATER - 50 ML IVPB SCH (17:45)
[2022-04-27] MEDS: PHENobarbital 30 MG TABLET GT SCH (23:30)
[2022-04-27] MEDS: MONTELUKAST NA 10 MG TABLET GT SCH (23:30)
[2022-04-28] MEDS: CEFTAZIDIME PENTAHYDRATE 1 GM in DEXTROSE 5%-WATER - 50 ML IVPB SCH ×2 (01:03→11:04)
[2022-04-28] MEDS: ALBUTEROL SO4 2.5/IPRATROPIUM 0.5 INH SOL 3 ML VIAL.NEB. NEB SCH ×4 (04:00→11:45)
[2022-04-28] MEDS: LEVOTHYROXINE NA 25 MCG TABLET (FP) GT SCH (06:12)
[2022-04-28 07:03] VITALS: BP 144/69; PULSE 97; RESP 22; TEMP 98.1
[2022-04-28] MEDS: BUDESONIDE 0.5 MG/2 ML INH SUSP VIAL NEB SCH (07:28)
[2022-04-28] MEDS: MULTIVIT-MINERALS ORAL LIQUID GT SCH (11:03)
[2022-04-28] MEDS: ENOXAPARIN NA (PORCINE) 40 MG/0.4 ML DISP.SYRIN SQ SCH (11:04)
[2022-04-28] MEDS: FAMOTIDINE 40 MG/5 ML ORAL SUSPENSION GT SCH (11:04)
== END 2022-04-28 14:26 | disposition home or self-care (01) | DRG 137 ==
LOC: JER 19:13 → JERBED 20:09 → J8W 04-12 13:34
PROVIDERS: ADMIT Internal Medicine; ATTEND Internal Medicine
DX: J15.1 Pneumonia due to Pseudomonas (principal); J96.01 Acute respiratory failure with hypoxia; D72.829 Elevated white blood cell count, unspecified; E11.9 Type 2 diabetes mellitus without complications; J45.901 Unspecified asthma with (acute) exacerbation; R53.2 Functional quadriplegia; G80.9 Cerebral palsy, unspecified; J96.02 Acute respiratory failure with hypercapnia; Q02 Microcephaly; Z93.1 Gastrostomy status; E03.9 Hypothyroidism, unspecified; J98.4 Other disorders of lung; M41.9 Scoliosis, unspecified
CPT/HCPCS: 0241U-QW; 36415; 36600; 71045-TC-FY; 80048; 80053; 82550; 82553; 82803; 82962; 83605; 83735; 84100; 84443; 84484; 85025; 85379; 85610; 85730; 86850; 86900; 86901; 87040; 87070; 87186; 87205; 93005; 93010; 94640; 94660; 94761; 99291; C9803-CS; G0008; Q2036; U0003; U0005

== ENCOUNTER 2022-05-05 00:20 | Inpatient (IN) | payer OTHER ==
[2022-05-05] MEDS ORDERED: DEXAMETHASONE SOD PHOSPHATE 10 MG/1 ML VIAL IVPUSH ONE (00:46)
[2022-05-05] MEDS ORDERED: MAGNESIUM SULF 50% (8.12 MEQ/2 ML-1 GM VIAL) IVPB ONE (00:46)
[2022-05-05] MEDS ORDERED: MAGNESIUM SULFATE IN WATER 2 GM/50 ML IVPB IVPB ONE (00:58)
[2022-05-05] MEDS ORDERED: DEXAMETHASONE SOD PHOSPHATE 10 MG/1 ML VIAL ONE (00:58)
[2022-05-05] MEDS: ALBUTEROL SO4 2.5/IPRATROPIUM 0.5 INH SOL 3 ML VIAL.NEB. NEB SCH ×8 (01:19→21:19)
[2022-05-05 01:34] LABS: BASO % 0.3 % (0-2.0); EOS % 8.8 % (0-4.5); HEMATOCRIT 41.1 % (32.4-45.2); HEMOGLOBIN 13.4 GM/dL (10.7-15.3); LYMPH % 18.4 % (8-40); MCH 27.1 pg (25.7-33.7); MCHC 32.5 g/dl (32.0-36.0); MEAN CELL VOLUME 83.4 fl (80-96); MEAN PLT VOLUME 8.3 fl (7.5-11.1); MONO % 7.2 % (3.8-10.2); NEUT % 65.3 % (42.8-82.8); PLATELET COUNT 357 10^3/uL (134-434); RBC 4.93 M/mm3 (3.60-5.2); RDW 14.9 % (11.6-15.6); WHITE BLOOD COUNT 11.6 K/mm3 (4.0-10.0)
[2022-05-05 01:50] LABS: ALBUMIN 3.2 g/dl (3.4-5.0); CALCIUM 8.8 mg/dL (8.5-10.1)
[2022-05-05 01:54] LABS: CREATININE 0.4 mg/dL (0.55-1.3)
[2022-05-05 01:56] LABS: BILIRUBIN,TOTAL 0.2 mg/dL (0.2-1); TOT PROT 7.2 g/dl (6.4-8.2)
[2022-05-05] MEDS ORDERED: SODIUM CHLORIDE 1,000 ML IV STA (01:57)
[2022-05-05 02:58] LABS: BLOOD UREA NITROGEN 15.4 mg/dL (7-18)
[2022-05-05] MEDS ORDERED: ALBUTEROL SO4 2.5/IPRATROPIUM 0.5 INH SOL 3 ML VIAL.NEB. NEB ONE ×4 (08:24→17:23)
[2022-05-05] MEDS: methylPREDNISolone NA SUCC 40 MG/1 ML VIAL IVPUSH SCH ×2 (10:59→18:04)
[2022-05-05] MEDS: ENOXAPARIN NA (PORCINE) 40 MG/0.4 ML DISP.SYRIN SQ SCH (10:59)
[2022-05-05] MEDS ORDERED: ENOXAPARIN NA (PORCINE) 40 MG/0.4 ML DISP.SYRIN SQ ONE (11:17)
[2022-05-05] MEDS ORDERED: methylPREDNISolone NA SUCC 40 MG/1 ML VIAL ONE ×2 (11:18→17:38)
[2022-05-05 18:58] LABS: EPI CELLS 17 /uL (0-25.1); HYALINE CASTS 2 /uL (0-3.1); PH,URINE 7.5 (5.0-8.0); URINE APPEARANCE TURBID; URINE BACTERIA 8 /uL (0-1359); URINE BILIRUBIN NEGATIVE (NEGATIVE); URINE COLOR YELLOW; URINE GLUCOSE (UA) NEGATIVE (NEGATIVE); URINE KETONE 1+ (NEGATIVE); URINE LEUK ESTERASE NEGATIVE (NEGATIVE); URINE NITRITE NEGATIVE (NEGATIVE); URINE PROTEIN TRACE (NEGATIVE); URINE RBC 1751 /uL (0-23.9); URINE UROBILINOGEN 0.2 mg/dL (0.2-1.0); URINE WBC 8 /uL (0-25.8)
[2022-05-05] MEDS ORDERED: PHENobarbital 20 MG/5 ML UNIT-DOSE CUP GT SCH (22:00)
[2022-05-05] MEDS: MONTELUKAST NA 10 MG TABLET GT SCH (22:08)
[2022-05-05] MEDS: PHENobarbital 20 MG/5 ML UNIT-DOSE CUP GT SCH (22:11)
[2022-05-06] MEDS: ALBUTEROL SO4 2.5/IPRATROPIUM 0.5 INH SOL 3 ML VIAL.NEB. NEB SCH ×6 (00:11→20:37)
[2022-05-06] MEDS: methylPREDNISolone NA SUCC 40 MG/1 ML VIAL IVPUSH SCH ×3 (01:24→17:12)
[2022-05-06] MEDS: ENOXAPARIN NA (PORCINE) 40 MG/0.4 ML DISP.SYRIN SQ SCH (08:59)
[2022-05-06 11:03] LABS: BASO % 0.2 % (0-2.0); EOS % 0.1 % (0-4.5); HEMATOCRIT 40.7 % (32.4-45.2); HEMOGLOBIN 13.2 GM/dL (10.7-15.3); LYMPH % 13.2 % (8-40); MCH 27.2 pg (25.7-33.7); MCHC 32.4 g/dl (32.0-36.0); MEAN CELL VOLUME 83.8 fl (80-96); MEAN PLT VOLUME 8.3 fl (7.5-11.1); MONO % 5.2 % (3.8-10.2); NEUT % 81.3 % (42.8-82.8); PLATELET COUNT 352 10^3/uL (134-434); RBC 4.86 M/mm3 (3.60-5.2); RDW 14.8 % (11.6-15.6); WHITE BLOOD COUNT 9.2 K/mm3 (4.0-10.0)
[2022-05-06 11:33] LABS: ALBUMIN 3.2 g/dl (3.4-5.0); BLOOD UREA NITROGEN 20.6 mg/dL (7-18); MAGNESIUM 2.4 mg/dL (1.8-2.4)
[2022-05-06 11:34] LABS: CREATININE 0.3 mg/dL (0.55-1.3)
[2022-05-06 11:35] LABS: BILIRUBIN,TOTAL 0.3 mg/dL (0.2-1); TOT PROT 7.1 g/dl (6.4-8.2)
[2022-05-06 11:36] LABS: PHOSPHOROUS 3.2 mg/dL (2.5-4.9)
[2022-05-06 11:41] LABS: CALCIUM 8.8 mg/dL (8.5-10.1)
[2022-05-06] MEDS: PHENobarbital 20 MG/5 ML UNIT-DOSE CUP GT SCH (22:02)
[2022-05-06] MEDS: MONTELUKAST NA 10 MG TABLET GT SCH (22:03)
[2022-05-07] MEDS: ALBUTEROL SO4 2.5/IPRATROPIUM 0.5 INH SOL 3 ML VIAL.NEB. NEB SCH ×7 (04:00→23:13)
[2022-05-07] MEDS: LEVOTHYROXINE NA 25 MCG TABLET (FP) GT SCH (06:17)
[2022-05-07] MEDS: ENOXAPARIN NA (PORCINE) 40 MG/0.4 ML DISP.SYRIN SQ SCH (09:09)
[2022-05-07] MEDS: FAMOTIDINE 40 MG/5 ML ORAL SUSPENSION PEG SCH (09:09)
[2022-05-07] MEDS ORDERED: predniSONE 40 MG, predniSONE 10 MG GT SCH (10:00)
[2022-05-07] MEDS ORDERED: predniSONE 20 MG TABLET (UD) GT SCH (10:00)
[2022-05-07 12:12] LABS: BASO % 0.7 % (0-2.0); EOS % 0.5 % (0-4.5); HEMATOCRIT 40.7 % (32.4-45.2); HEMOGLOBIN 13.2 GM/dL (10.7-15.3); LYMPH % 20.4 % (8-40); MCH 27.3 pg (25.7-33.7); MCHC 32.4 g/dl (32.0-36.0); MEAN CELL VOLUME 84.3 fl (80-96); MEAN PLT VOLUME 8.4 fl (7.5-11.1); MONO % 10.1 % (3.8-10.2); NEUT % 68.3 % (42.8-82.8); PLATELET COUNT 374 10^3/uL (134-434); RBC 4.83 M/mm3 (3.60-5.2); WHITE BLOOD COUNT 8.7 K/mm3 (4.0-10.0)
[2022-05-07] MEDS: BACITRACIN 15 GM TUBE TOPICAL OINTMENT TP SCH (13:01)
[2022-05-07 13:57] LABS: BLOOD UREA NITROGEN 24.9 mg/dL (7-18); CALCIUM 9.1 mg/dL (8.5-10.1)
[2022-05-07 13:59] LABS: CREATININE 0.3 mg/dL (0.55-1.3)
[2022-05-07 21:18] VITALS: RESP 20
[2022-05-07] MEDS: predniSONE 20 MG TABLET (UD) GT SCH (23:10)
[2022-05-07] MEDS: BACLOFEN 10 MG TABLET (FP) GT SCH (23:10)
[2022-05-07] MEDS: PHENobarbital 20 MG/5 ML UNIT-DOSE CUP GT SCH (23:11)
[2022-05-07] MEDS: MONTELUKAST NA 10 MG TABLET GT SCH (23:13)
[2022-05-08] MEDS: ALBUTEROL SO4 2.5/IPRATROPIUM 0.5 INH SOL 3 ML VIAL.NEB. NEB SCH ×3 (04:45→15:16)
[2022-05-08 06:18] VITALS: BP 120/71; PULSE 63; TEMP 98.5
[2022-05-08] MEDS: LEVOTHYROXINE NA 25 MCG TABLET (FP) GT SCH (07:01)
[2022-05-08] MEDS: BACLOFEN 10 MG TABLET (FP) GT SCH (10:28)
[2022-05-08] MEDS: BACITRACIN 15 GM TUBE TOPICAL OINTMENT TP SCH (10:29)
[2022-05-08] MEDS: ENOXAPARIN NA (PORCINE) 40 MG/0.4 ML DISP.SYRIN SQ SCH (10:29)
[2022-05-08] MEDS: predniSONE 20 MG TABLET (UD) GT SCH (10:29)
[2022-05-08] MEDS: FAMOTIDINE 40 MG/5 ML ORAL SUSPENSION PEG SCH (10:43)
[2022-05-08 10:44] LABS: BASO % 0.6 % (0-2.0); EOS % 1.1 % (0-4.5); HEMATOCRIT 42.3 % (32.4-45.2); HEMOGLOBIN 13.1 GM/dL (10.7-15.3); LYMPH % 24.1 % (8-40); MCH 26.7 pg (25.7-33.7); MCHC 31.1 g/dl (32.0-36.0); MEAN PLT VOLUME 8.5 fl (7.5-11.1); MONO % 7.8 % (3.8-10.2); NEUT % 66.4 % (42.8-82.8); PLATELET COUNT 209 10^3/uL (134-434); RBC 4.92 M/mm3 (3.60-5.2); RDW 15.4 % (11.6-15.6)
[2022-05-08 10:53] LABS: BLOOD UREA NITROGEN 19.5 mg/dL (7-18); CALCIUM 8.9 mg/dL (8.5-10.1)
[2022-05-08 10:56] LABS: CREATININE 0.3 mg/dL (0.55-1.3)
[2022-05-08 12:58] VITALS: BMI 33.0
== END 2022-05-08 14:32 | disposition home or self-care (01) | DRG 141 ==
LOC: JER 00:20 → JERBED 04:00 → J6S 18:36 → J7W 05-07 15:33
PROVIDERS: ADMIT Internal Medicine; ATTEND Internal Medicine
DX: J45.901 Unspecified asthma with (acute) exacerbation (principal); G40.909 Epilepsy, unspecified, not intractable, without status epilepticus; Q02 Microcephaly; Z93.1 Gastrostomy status; J96.01 Acute respiratory failure with hypoxia; Z86.16 Personal history of COVID-19; I25.10 Atherosclerotic heart disease of native coronary artery without angina pectoris; R53.2 Functional quadriplegia; G80.9 Cerebral palsy, unspecified; E03.9 Hypothyroidism, unspecified; J96.02 Acute respiratory failure with hypercapnia; K59.09 Other constipation; K21.9 Gastro-esophageal reflux disease without esophagitis; L91.0 Hypertrophic scar; F79 Unspecified intellectual disabilities; J98.11 Atelectasis
CPT/HCPCS: 0241U-QW; 36415; 71045-TC-FY; 80048; 80053; 81003; 82550; 82553; 83605; 83735; 84100; 84484; 85025; 87040; 87086; 93005; 93010; 94640; 94660; 99285-25; C9803-CS; J0475; J1100; U0003; U0005

== ENCOUNTER 2022-06-03 00:26 | Inpatient (IN) | payer OTHER ==
[2022-06-03] MEDS ORDERED: ALBUTEROL SO4 2.5/IPRATROPIUM 0.5 INH SOL 3 ML VIAL.NEB. NEB ONE ×4 (00:31→22:12)
[2022-06-03] MEDS ORDERED: MAGNESIUM SULF 50% (8.12 MEQ/2 ML-1 GM VIAL) IVPB ONE ×2 (00:35→06:55)
[2022-06-03] MEDS ORDERED: methylPREDNISolone NA SUCC 125 MG/2 ML VIAL IVPB ONE (00:35)
[2022-06-03] MEDS ORDERED: MAGNESIUM SULFATE IN WATER 2 GM/50 ML IVPB IVPB ONE ×2 (00:56→07:02)
[2022-06-03] MEDS ORDERED: methylPREDNISolone NA SUCC 125 MG/2 ML VIAL ONE ×2 (00:56→15:02)
[2022-06-03] MEDS ORDERED: PIPERACILLIN/TAZOB 3.375 GM 4.5 GM in DEXTROSE 5%-WATER - 50 ML IVPB ONE (01:11)
[2022-06-03] MEDS ORDERED: VANCOMYCIN 1 GM in D5W (PRE-DOCKED) 1,000 MG/250 ML IVPB ONE (01:11)
[2022-06-03] MEDS ORDERED: CIPROFLOXACIN 400 MG/D5W 400 MG/200 ML IVPB IVPB ONE (01:14)
[2022-06-03] MEDS ORDERED: RACEPINEPHRINE IH SOL 2.25% 11.25 MG/0.5 ML VIAL NEB ONE (01:19)
[2022-06-03] MEDS ORDERED: RACEPINEPHRINE IH SOL 2.25% 11.25 MG/0.5 ML VIAL IH ONE (01:20)
[2022-06-03 01:33] LABS: VENOUS BASE EXCESS 3.2 mmol/L (-2-2); VENOUS O2 SATURATION 84.7 % (70-80); VENOUS PCO2 46.8 mmHg (38-52); VENOUS PH 7.406 (7.310-7.410)
[2022-06-03 01:34] LABS: BASO % 0.2 % (0-2.0); EOS % 11.3 % (0-4.5); HEMATOCRIT 42.7 % (32.4-45.2); HEMOGLOBIN 14.2 GM/dL (10.7-15.3); LYMPH % 14.9 % (8-40); MCH 27.9 pg (25.7-33.7); MCHC 33.3 g/dl (32.0-36.0); MEAN CELL VOLUME 83.7 fl (80-96); MEAN PLT VOLUME 8.7 fl (7.5-11.1); MONO % 10.1 % (3.8-10.2); NEUT % 63.5 % (42.8-82.8); PLATELET COUNT 367 10^3/uL (134-434); RDW 14.9 % (11.6-15.6); WHITE BLOOD COUNT 10.7 K/mm3 (4.0-10.0)
[2022-06-03 01:47] LABS: INR 1.09 (0.83-1.09); PROTHROMBIN TIME (PATIENT) 12.5 SEC (9.7-13.0)
[2022-06-03 02:05] LABS: ALBUMIN 3.2 g/dl (3.4-5.0); CALCIUM 9.2 mg/dL (8.5-10.1)
[2022-06-03 02:08] LABS: CREATININE 0.4 mg/dL (0.55-1.3)
[2022-06-03 02:10] LABS: BILIRUBIN,TOTAL 0.2 mg/dL (0.2-1); TOT PROT 7.2 g/dl (6.4-8.2)
[2022-06-03] MEDS ORDERED: PIPERACILLIN/TAZOB 4.5 GM 4.5 GM/100 ML BAG IVPB ONE (02:18)
[2022-06-03] MEDS ORDERED: VANCOMYCIN/WATER FOR INJ (PEG) 1,000 MG/200 ML BAG IVPB ONE (02:41)
[2022-06-03 05:25] LABS: VENOUS BASE EXCESS 2.1 mmol/L (-2-2); VENOUS O2 SATURATION 98.9 % (70-80); VENOUS PCO2 42.5 mmHg (38-52); VENOUS PH 7.419 (7.310-7.410)
[2022-06-03] MEDS ORDERED: DEXTROSE 50%-WATER - 25 GM/50 ML VIAL IVPUSH ONE (06:27)
[2022-06-03] MEDS ORDERED: DEXTROSE 50%-WATER 25 GM/50 ML DISP.SYRIN ONE (06:33)
[2022-06-03] MEDS ORDERED: ALBUTEROL SO4 0.083% IH SOL 2.5 MG/3 ML VIAL.NEB. NEB ONE ×2 (06:55→07:01)
[2022-06-03] MEDS ORDERED: ALBUTEROL SO4 2.5/IPRATROPIUM 0.5 INH SOL 3 ML VIAL.NEB. NEB PRN (08:04)
[2022-06-03] MEDS ORDERED: methylPREDNISolone NA SUCC 40 MG/1 ML VIAL IVPUSH SCH (10:00)
[2022-06-03] MEDS ORDERED: ENOXAPARIN NA (PORCINE) 40 MG/0.4 ML DISP.SYRIN SQ ONE (10:03)
[2022-06-03] MEDS ORDERED: methylPREDNISolone NA SUCC 40 MG/1 ML VIAL ONE ×2 (10:04→22:13)
[2022-06-03] MEDS: ENOXAPARIN NA (PORCINE) 40 MG/0.4 ML DISP.SYRIN SQ SCH (10:11)
[2022-06-03] MEDS: BUDESONIDE/FORMETEROL FUMARATE 80/4.5 mcg INHALER IH SCH (10:14)
[2022-06-03] MEDS: methylPREDNISolone NA SUCC 40 MG/1 ML VIAL IVPUSH SCH ×2 (15:18→22:20)
[2022-06-03] MEDS: ALBUTEROL SO4 2.5/IPRATROPIUM 0.5 INH SOL 3 ML VIAL.NEB. NEB SCH ×2 (15:18→22:20)
[2022-06-04] MEDS: MONTELUKAST NA 5 MG TAB.CHEW PO SCH ×2 (02:21→22:50)
[2022-06-04] MEDS: BUDESONIDE/FORMETEROL FUMARATE 80/4.5 mcg INHALER IH SCH ×3 (02:21→22:50)
[2022-06-04] MEDS: methylPREDNISolone NA SUCC 40 MG/1 ML VIAL IVPUSH SCH ×3 (06:02→22:49)
[2022-06-04] MEDS: ALBUTEROL SO4 2.5/IPRATROPIUM 0.5 INH SOL 3 ML VIAL.NEB. NEB SCH ×4 (08:20→20:05)
[2022-06-04] MEDS ORDERED: methylPREDNISolone NA SUCC 40 MG/1 ML VIAL IVPUSH SCH (10:00)
[2022-06-04] MEDS ORDERED: AZITHROMYCIN IVPB 250 MG in DEXTROSE 5%-WATER - 250 ML IVPB SCH (10:00)
[2022-06-04] MEDS: ENOXAPARIN NA (PORCINE) 40 MG/0.4 ML DISP.SYRIN SQ SCH (11:52)
[2022-06-04] MEDS: AZITHROMYCIN IVPB 250 MG in DEXTROSE 5%-WATER - 250 ML IVPB SCH (11:55)
[2022-06-04 12:10] LABS: BASO % 0.2 % (0-2.0); EOS % 0.1 % (0-4.5); HEMATOCRIT 45.6 % (32.4-45.2); HEMOGLOBIN 14.6 GM/dL (10.7-15.3); LYMPH % 7.6 % (8-40); MCH 27.1 pg (25.7-33.7); MCHC 31.9 g/dl (32.0-36.0); MEAN CELL VOLUME 84.8 fl (80-96); MEAN PLT VOLUME 8.7 fl (7.5-11.1); MONO % 4.9 % (3.8-10.2); NEUT % 87.2 % (42.8-82.8); PLATELET COUNT 390 10^3/uL (134-434); RBC 5.38 M/mm3 (3.60-5.2); WHITE BLOOD COUNT 14.5 K/mm3 (4.0-10.0)
[2022-06-04 12:48] LABS: BLOOD UREA NITROGEN 21.4 mg/dL (7-18); CALCIUM 9.8 mg/dL (8.5-10.1); MAGNESIUM 2.7 mg/dL (1.8-2.4)
[2022-06-04 12:51] LABS: CREATININE 0.5 mg/dL (0.55-1.3); PHOSPHOROUS 3.2 mg/dL (2.5-4.9); TOT PROT 8.4 g/dl (6.4-8.2)
[2022-06-04 12:54] LABS: BILIRUBIN,TOTAL 0.6 mg/dL (0.2-1)
[2022-06-04] MEDS: FAMOTIDINE 40 MG/5 ML ORAL SUSPENSION PEG SCH (16:28)
[2022-06-04] MEDS: PHENobarbital 20 MG/5 ML UNIT-DOSE CUP PEG SCH (22:44)
[2022-06-04] MEDS: BACLOFEN 10 MG TABLET (FP) PO SCH (22:50)
[2022-06-05] MEDS: LEVOTHYROXINE NA 25 MCG TABLET (FP) PO SCH (06:22)
[2022-06-05] MEDS: methylPREDNISolone NA SUCC 40 MG/1 ML VIAL IVPUSH SCH ×3 (06:22→22:18)
[2022-06-05] MEDS: ALBUTEROL SO4 2.5/IPRATROPIUM 0.5 INH SOL 3 ML VIAL.NEB. NEB SCH ×4 (08:06→20:47)
[2022-06-05] MEDS: ENOXAPARIN NA (PORCINE) 40 MG/0.4 ML DISP.SYRIN SQ SCH (09:37)
[2022-06-05] MEDS: BACLOFEN 10 MG TABLET (FP) PO SCH ×2 (09:37→22:18)
[2022-06-05] MEDS: BUDESONIDE/FORMETEROL FUMARATE 80/4.5 mcg INHALER IH SCH ×2 (09:38→22:12)
[2022-06-05] MEDS: FAMOTIDINE 40 MG/5 ML ORAL SUSPENSION PEG SCH (09:38)
[2022-06-05] MEDS: AZITHROMYCIN IVPB 250 MG in DEXTROSE 5%-WATER - 250 ML IVPB SCH (09:50)
[2022-06-05 12:44] LABS: BASO % 0.2 % (0-2.0); HEMATOCRIT 40.9 % (32.4-45.2); HEMOGLOBIN 12.7 GM/dL (10.7-15.3); LYMPH % 6.9 % (8-40); MCH 26.7 pg (25.7-33.7); MCHC 31.2 g/dl (32.0-36.0); MEAN CELL VOLUME 85.6 fl (80-96); MEAN PLT VOLUME 9.3 fl (7.5-11.1); MONO % 7.5 % (3.8-10.2); NEUT % 85.4 % (42.8-82.8); PLATELET COUNT 318 10^3/uL (134-434); RBC 4.78 M/mm3 (3.60-5.2); RDW 14.9 % (11.6-15.6); WHITE BLOOD COUNT 10.8 K/mm3 (4.0-10.0)
[2022-06-05 14:33] VITALS: BMI 21.0
[2022-06-05] MEDS: MONTELUKAST NA 5 MG TAB.CHEW PO SCH (22:18)
[2022-06-05] MEDS: PHENobarbital 20 MG/5 ML UNIT-DOSE CUP PEG SCH (22:19)
[2022-06-06] MEDS: methylPREDNISolone NA SUCC 40 MG/1 ML VIAL IVPUSH SCH ×3 (06:05→21:12)
[2022-06-06] MEDS: ALBUTEROL SO4 0.083% IH SOL 2.5 MG/3 ML VIAL.NEB. NEB PRN (06:05)
[2022-06-06] MEDS: LEVOTHYROXINE NA 25 MCG TABLET (FP) PO SCH (06:05)
[2022-06-06] MEDS: ALBUTEROL SO4 2.5/IPRATROPIUM 0.5 INH SOL 3 ML VIAL.NEB. NEB SCH ×4 (08:23→20:30)
[2022-06-06] MEDS: ENOXAPARIN NA (PORCINE) 40 MG/0.4 ML DISP.SYRIN SQ SCH (10:14)
[2022-06-06] MEDS: FAMOTIDINE 40 MG/5 ML ORAL SUSPENSION PEG SCH (10:14)
[2022-06-06] MEDS: BACLOFEN 10 MG TABLET (FP) PO SCH ×2 (10:14→21:12)
[2022-06-06] MEDS: AZITHROMYCIN IVPB 250 MG in DEXTROSE 5%-WATER - 250 ML IVPB SCH (10:15)
[2022-06-06] MEDS: BUDESONIDE/FORMETEROL FUMARATE 80/4.5 mcg INHALER IH SCH ×2 (11:10→21:12)
[2022-06-06] MEDS ORDERED: PHENobarbital 20 MG/5 ML UNIT-DOSE CUP GT ONE (15:39)
[2022-06-06] MEDS: LORazepam 2 MG/ML SDV VIAL IVPUSH PRN (15:45)
[2022-06-06 18:06] LABS: HEMATOCRIT 41.7 % (32.4-45.2); HEMOGLOBIN 13.3 GM/dL (10.7-15.3); MCHC 31.9 g/dl (32.0-36.0); MEAN CELL VOLUME 84.6 fl (80-96); MEAN PLT VOLUME 8.8 fl (7.5-11.1); PLATELET COUNT 343 10^3/uL (134-434); RBC 4.93 M/mm3 (3.60-5.2); RDW 14.9 % (11.6-15.6); WHITE BLOOD COUNT 10.8 K/mm3 (4.0-10.0)
[2022-06-06 18:34] LABS: BLOOD UREA NITROGEN 11.8 mg/dL (7-18); CALCIUM 9.2 mg/dL (8.5-10.1)
[2022-06-06 18:37] LABS: CREATININE 0.3 mg/dL (0.55-1.3); PHOSPHOROUS 2.2 mg/dL (2.5-4.9)
[2022-06-06 18:39] LABS: BILIRUBIN,TOTAL 0.3 mg/dL (0.2-1); TOT PROT 6.9 g/dl (6.4-8.2)
[2022-06-06 18:44] LABS: ALBUMIN 3.1 g/dl (3.4-5.0)
[2022-06-06] MEDS: PHENobarbital 20 MG/5 ML UNIT-DOSE CUP PEG SCH (21:12)
[2022-06-06] MEDS: MONTELUKAST NA 5 MG TAB.CHEW PO SCH (21:12)
[2022-06-07] MEDS: methylPREDNISolone NA SUCC 40 MG/1 ML VIAL IVPUSH SCH ×3 (05:50→22:27)
[2022-06-07] MEDS: LORazepam 2 MG/ML SDV VIAL IVPUSH PRN (05:50)
[2022-06-07] MEDS ORDERED: METOPROLOL TARTRATE 5 MG/5 ML VIAL IVPUSH ONE (06:14)
[2022-06-07] MEDS: LEVOTHYROXINE NA 25 MCG TABLET (FP) PO SCH (06:27)
[2022-06-07] MEDS: ALBUTEROL SO4 2.5/IPRATROPIUM 0.5 INH SOL 3 ML VIAL.NEB. NEB SCH ×4 (08:05→19:39)
[2022-06-07 09:21] LABS: HEMATOCRIT 43.4 % (32.4-45.2); HEMOGLOBIN 13.6 GM/dL (10.7-15.3); MCH 26.4 pg (25.7-33.7); MCHC 31.3 g/dl (32.0-36.0); MEAN CELL VOLUME 84.5 fl (80-96); MEAN PLT VOLUME 9.2 fl (7.5-11.1); PLATELET COUNT 326 10^3/uL (134-434); RBC 5.14 M/mm3 (3.60-5.2); RDW 15.2 % (11.6-15.6); WHITE BLOOD COUNT 15.4 K/mm3 (4.0-10.0)
[2022-06-07 09:53] LABS: ALBUMIN 3.4 g/dl (3.4-5.0); BLOOD UREA NITROGEN 12.5 mg/dL (7-18); CALCIUM 9.6 mg/dL (8.5-10.1); MAGNESIUM 2.1 mg/dL (1.8-2.4)
[2022-06-07 09:55] LABS: CREATININE 0.4 mg/dL (0.55-1.3)
[2022-06-07 09:56] LABS: BILIRUBIN,TOTAL 0.3 mg/dL (0.2-1); PHOSPHOROUS 3.2 mg/dL (2.5-4.9)
[2022-06-07 09:57] LABS: TOT PROT 7.3 g/dl (6.4-8.2)
[2022-06-07] MEDS: BACLOFEN 10 MG TABLET (FP) PO SCH ×2 (10:30→22:27)
[2022-06-07] MEDS: FAMOTIDINE 40 MG/5 ML ORAL SUSPENSION PEG SCH (10:30)
[2022-06-07] MEDS: ENOXAPARIN NA (PORCINE) 40 MG/0.4 ML DISP.SYRIN SQ SCH (10:30)
[2022-06-07] MEDS: BUDESONIDE/FORMETEROL FUMARATE 80/4.5 mcg INHALER IH SCH ×2 (10:30→22:28)
[2022-06-07 10:40] LABS: ANISOCYTOSIS 1+; MACROCYTOSIS 0
[2022-06-07] MEDS ORDERED: LORazepam 2 MG/ML SDV VIAL IVPUSH PRN (20:00)
[2022-06-07] MEDS ORDERED: PHENobarbital 20 MG/5 ML UNIT-DOSE CUP PEG SCH (22:00)
[2022-06-07] MEDS ORDERED: PATIENT'S OWN MEDICATION (NON-FORMULARY) (Phenobarbital [Phenobarbital] 64.8 MG Tablet) PEG SCH (22:00)
[2022-06-07] MEDS: MONTELUKAST NA 5 MG TAB.CHEW PO SCH (22:27)
[2022-06-07] MEDS: PHENobarbital 20 MG/5 ML UNIT-DOSE CUP PEG SCH (22:27)
[2022-06-08] MEDS: LEVOTHYROXINE NA 25 MCG TABLET (FP) PO SCH (06:31)
[2022-06-08] MEDS: methylPREDNISolone NA SUCC 40 MG/1 ML VIAL IVPUSH SCH (06:31)
[2022-06-08] MEDS: ALBUTEROL SO4 2.5/IPRATROPIUM 0.5 INH SOL 3 ML VIAL.NEB. NEB SCH ×4 (07:00→20:53)
[2022-06-08] MEDS: FAMOTIDINE 40 MG/5 ML ORAL SUSPENSION PEG SCH (09:34)
[2022-06-08] MEDS: BACLOFEN 10 MG TABLET (FP) PO SCH ×2 (09:34→21:28)
[2022-06-08] MEDS: ENOXAPARIN NA (PORCINE) 40 MG/0.4 ML DISP.SYRIN SQ SCH (09:34)
[2022-06-08] MEDS: BUDESONIDE/FORMETEROL FUMARATE 80/4.5 mcg INHALER IH SCH ×2 (09:45→21:28)
[2022-06-08 15:41] LABS: BASO % 0.2 % (0-2.0); EOS % 0.2 % (0-4.5); HEMATOCRIT 43.2 % (32.4-45.2); HEMOGLOBIN 13.4 GM/dL (10.7-15.3); MCH 26.4 pg (25.7-33.7); MEAN CELL VOLUME 85.1 fl (80-96); MEAN PLT VOLUME 8.7 fl (7.5-11.1); MONO % 9.5 % (3.8-10.2); NEUT % 74.1 % (42.8-82.8); PLATELET COUNT 312 10^3/uL (134-434); RBC 5.08 M/mm3 (3.60-5.2); RDW 15.1 % (11.6-15.6); WHITE BLOOD COUNT 14.9 K/mm3 (4.0-10.0)
[2022-06-08 16:08] LABS: CALCIUM 9.1 mg/dL (8.5-10.1)
[2022-06-08 16:09] LABS: ALBUMIN 2.9 g/dl (3.4-5.0); MAGNESIUM 1.8 mg/dL (1.8-2.4)
[2022-06-08 16:12] LABS: CREATININE 0.3 mg/dL (0.55-1.3); PHOSPHOROUS 2.9 mg/dL (2.5-4.9)
[2022-06-08 16:13] LABS: BILIRUBIN,TOTAL 0.2 mg/dL (0.2-1)
[2022-06-08 16:14] LABS: TOT PROT 6.7 g/dl (6.4-8.2)
[2022-06-08] MEDS ORDERED: ACETAMINOPHEN 500 MG TABLET (FP) GT ONE (19:30)
[2022-06-08] MEDS: PHENobarbital 20 MG/5 ML UNIT-DOSE CUP PEG SCH (21:28)
[2022-06-08] MEDS: MONTELUKAST NA 5 MG TAB.CHEW PO SCH (21:29)
[2022-06-08] MEDS: ALBUTEROL SO4 0.083% IH SOL 2.5 MG/3 ML VIAL.NEB. NEB PRN (21:30)
[2022-06-09] MEDS ORDERED: ALBUTEROL SO4 2.5/IPRATROPIUM 0.5 INH SOL 3 ML VIAL.NEB. NEB ONE (02:32)
[2022-06-09] MEDS: LEVOTHYROXINE NA 25 MCG TABLET (FP) PO SCH (06:17)
[2022-06-09 08:01] LABS: BASO % 0.2 % (0-2.0); EOS % 4.3 % (0-4.5); HEMATOCRIT 45.4 % (32.4-45.2); HEMOGLOBIN 14.4 GM/dL (10.7-15.3); LYMPH % 18.1 % (8-40); MCH 26.9 pg (25.7-33.7); MCHC 31.8 g/dl (32.0-36.0); MEAN CELL VOLUME 84.7 fl (80-96); MEAN PLT VOLUME 9.3 fl (7.5-11.1); MONO % 10.3 % (3.8-10.2); NEUT % 67.1 % (42.8-82.8); PLATELET COUNT 342 10^3/uL (134-434); RBC 5.36 M/mm3 (3.60-5.2); RDW 14.7 % (11.6-15.6); WHITE BLOOD COUNT 14.3 K/mm3 (4.0-10.0)
[2022-06-09] MEDS: ALBUTEROL SO4 2.5/IPRATROPIUM 0.5 INH SOL 3 ML VIAL.NEB. NEB SCH ×4 (08:05→19:43)
[2022-06-09] MEDS ORDERED: ACETAMINOPHEN 160 MG/5 ML *Children Solution GT PRN (08:19)
[2022-06-09] MEDS ORDERED: ACETAMINOPHEN 1000 MG/100 ML BAG IVPB PRN (08:26)
[2022-06-09] MEDS ORDERED: DEXTROSE 5%-LACTATED RINGERS 1,000 ML IV SCH (08:30)
[2022-06-09 08:42] LABS: CALCIUM 9.6 mg/dL (8.5-10.1); CREATININE 0.3 mg/dL (0.55-1.3)
[2022-06-09] MEDS: ENOXAPARIN NA (PORCINE) 40 MG/0.4 ML DISP.SYRIN SQ SCH (09:10)
[2022-06-09] MEDS: methylPREDNISolone NA SUCC 40 MG/1 ML VIAL IVPUSH SCH (09:10)
[2022-06-09] MEDS: BACLOFEN 10 MG TABLET (FP) PO SCH ×2 (09:11→21:38)
[2022-06-09] MEDS: FAMOTIDINE 40 MG/5 ML ORAL SUSPENSION PEG SCH (09:11)
[2022-06-09] MEDS: BUDESONIDE/FORMETEROL FUMARATE 80/4.5 mcg INHALER IH SCH ×2 (09:12→21:37)
[2022-06-09] MEDS: ACETAMINOPHEN 1000 MG/100 ML BAG IVPB PRN (09:12)
[2022-06-09] MEDS: LEVOTHYROXINE SODIUM 100 MCG 5 ML VIAL IVPUSH SCH (09:25)
[2022-06-09] MEDS: AMINO ACIDS 4.25%/D5W 1,000 ML IV SCH (14:58)
[2022-06-09] MEDS: MONTELUKAST NA 5 MG TAB.CHEW PO SCH (21:36)
[2022-06-09] MEDS: PHENobarbital SODIUM 65 MG/1 ML VIAL IVPB SCH (21:36)
[2022-06-10] MEDS: ACETAMINOPHEN 1000 MG/100 ML BAG IVPB PRN (00:47)
[2022-06-10] MEDS: ALBUTEROL SO4 0.083% IH SOL 2.5 MG/3 ML VIAL.NEB. NEB PRN (02:10)
[2022-06-10] MEDS: LEVOTHYROXINE SODIUM 100 MCG 5 ML VIAL IVPUSH SCH (06:48)
[2022-06-10] MEDS: ALBUTEROL SO4 2.5/IPRATROPIUM 0.5 INH SOL 3 ML VIAL.NEB. NEB SCH ×4 (07:40→20:30)
[2022-06-10] MEDS: ACETAMINOPHEN 1000 MG/100 ML BAG IVPB SCH ×2 (09:29→17:01)
[2022-06-10] MEDS: BACLOFEN 10 MG TABLET (FP) PO SCH ×2 (09:36→21:34)
[2022-06-10] MEDS: FAMOTIDINE 40 MG/5 ML ORAL SUSPENSION PEG SCH (09:37)
[2022-06-10] MEDS: methylPREDNISolone NA SUCC 40 MG/1 ML VIAL IVPUSH SCH (09:37)
[2022-06-10] MEDS: BUDESONIDE/FORMETEROL FUMARATE 80/4.5 mcg INHALER IH SCH ×2 (09:37→21:34)
[2022-06-10] MEDS: AMINO ACIDS 4.25%/D5W 1,000 ML IV SCH (17:00)
[2022-06-10] MEDS ORDERED: ALBUTEROL SO4 2.5/IPRATROPIUM 0.5 INH SOL 3 ML VIAL.NEB. NEB ONE (18:37)
[2022-06-10] MEDS: MONTELUKAST NA 5 MG TAB.CHEW PO SCH (21:34)
[2022-06-10] MEDS: PHENobarbital 20 MG/5 ML UNIT-DOSE CUP PEG SCH (21:34)
[2022-06-10] MEDS: PHENobarbital SODIUM 65 MG/1 ML VIAL IVPB SCH (21:38)
[2022-06-10] MEDS: ENOXAPARIN NA (PORCINE) 30 MG/0.3 ML DISP.SYRIN SQ SCH (21:42)
[2022-06-11] MEDS: ACETAMINOPHEN 1000 MG/100 ML BAG IVPB SCH ×2 (01:17→04:58)
[2022-06-11] MEDS: LEVOTHYROXINE SODIUM 100 MCG 5 ML VIAL IVPUSH SCH (06:09)
[2022-06-11] MEDS: ALBUTEROL SO4 2.5/IPRATROPIUM 0.5 INH SOL 3 ML VIAL.NEB. NEB SCH ×4 (08:00→20:58)
[2022-06-11] MEDS: FAMOTIDINE 20 MG/50 ML IVPB 20 MG/50 ML MG IVPB SCH (09:29)
[2022-06-11] MEDS: methylPREDNISolone NA SUCC 40 MG/1 ML VIAL IVPUSH SCH (09:29)
[2022-06-11] MEDS: BACLOFEN 10 MG TABLET (FP) PO SCH ×2 (09:30→21:02)
[2022-06-11] MEDS: BUDESONIDE/FORMETEROL FUMARATE 80/4.5 mcg INHALER IH SCH ×2 (09:30→21:02)
[2022-06-11 13:25] LABS: BASO % 0.2 % (0-2.0); EOS % 2.9 % (0-4.5); HEMATOCRIT 46.5 % (32.4-45.2); HEMOGLOBIN 14.5 GM/dL (10.7-15.3); MCH 26.7 pg (25.7-33.7); MCHC 31.3 g/dl (32.0-36.0); MEAN CELL VOLUME 85.2 fl (80-96); MONO % 3.3 % (3.8-10.2); NEUT % 86.6 % (42.8-82.8); PLATELET COUNT 318 10^3/uL (134-434); RBC 5.45 M/mm3 (3.60-5.2); RDW 14.7 % (11.6-15.6); WHITE BLOOD COUNT 11.8 K/mm3 (4.0-10.0)
[2022-06-11 13:31] LABS: INR 1.19 (0.83-1.09); PROTHROMBIN TIME (PATIENT) 13.7 SEC (9.7-13.0)
[2022-06-11 13:45] LABS: BLOOD UREA NITROGEN 13.5 mg/dL (7-18); CALCIUM 9.1 mg/dL (8.5-10.1); MAGNESIUM 1.9 mg/dL (1.8-2.4)
[2022-06-11 13:49] LABS: CREATININE 0.3 mg/dL (0.55-1.3); PHOSPHOROUS 1.7 mg/dL (2.5-4.9)
[2022-06-11] MEDS: AMINO ACIDS 4.25%/D5W 1,000 ML IV SCH (15:20)
[2022-06-11] MEDS ORDERED: NAPH,MB-DB/K PH,MBDB POWDER PACKET PO ONE (15:26)
[2022-06-11] MEDS ORDERED: SODIUM PHOSPHATE - 15 MM in DEXTROSE 5%-WATER - 250 ML IVPB ONE (17:15)
[2022-06-11] MEDS: PHENobarbital 20 MG/5 ML UNIT-DOSE CUP PEG SCH (21:02)
[2022-06-11] MEDS: MONTELUKAST NA 5 MG TAB.CHEW PO SCH (21:02)
[2022-06-11] MEDS: ENOXAPARIN NA (PORCINE) 30 MG/0.3 ML DISP.SYRIN SQ SCH (21:47)
[2022-06-11] MEDS: PHENobarbital SODIUM 65 MG/1 ML VIAL IVPB SCH (21:50)
[2022-06-12] MEDS ORDERED: LORazepam 2 MG/ML SDV VIAL IM ONE (01:02)
[2022-06-12] MEDS ORDERED: ACETAMINOPHEN 500 MG TABLET (FP) GT ONE (01:03)
[2022-06-12] MEDS ORDERED: METOPROLOL TARTRATE 5 MG/5 ML VIAL IVPUSH ONE (03:27)
[2022-06-12] MEDS: LEVOTHYROXINE SODIUM 100 MCG 5 ML VIAL IVPUSH SCH (06:51)
[2022-06-12] MEDS: ALBUTEROL SO4 2.5/IPRATROPIUM 0.5 INH SOL 3 ML VIAL.NEB. NEB SCH ×4 (07:49→20:11)
[2022-06-12] MEDS: BUDESONIDE/FORMETEROL FUMARATE 80/4.5 mcg INHALER IH SCH ×2 (11:16→21:44)
[2022-06-12] MEDS: FAMOTIDINE 20 MG/50 ML IVPB 20 MG/50 ML MG IVPB SCH (11:16)
[2022-06-12] MEDS: BACLOFEN 10 MG TABLET (FP) PO SCH ×2 (11:19→21:43)
[2022-06-12] MEDS: methylPREDNISolone NA SUCC 40 MG/1 ML VIAL IVPUSH SCH (16:41)
[2022-06-12] MEDS: AMINO ACIDS 4.25%/D5W 1,000 ML IV SCH (16:41)
[2022-06-12] MEDS: MONTELUKAST NA 5 MG TAB.CHEW PO SCH (21:43)
[2022-06-12] MEDS: PHENobarbital 20 MG/5 ML UNIT-DOSE CUP PEG SCH (21:43)
[2022-06-12] MEDS: ENOXAPARIN NA (PORCINE) 30 MG/0.3 ML DISP.SYRIN SQ SCH (21:43)
[2022-06-12] MEDS: DOCUSATE NA 100 MG/10 ML UNIT-DOSE CUPS GT SCH (21:43)
[2022-06-12] MEDS: FAMOTIDINE 40 MG/5 ML ORAL SUSPENSION GT SCH (21:44)
[2022-06-13] MEDS: LEVOTHYROXINE NA 25 MCG TABLET (FP) GT SCH (06:04)
[2022-06-13] MEDS: ALBUTEROL SO4 2.5/IPRATROPIUM 0.5 INH SOL 3 ML VIAL.NEB. NEB SCH ×4 (07:45→19:55)
[2022-06-13 08:11] LABS: BASO % 0.5 % (0-2.0); EOS % 4.9 % (0-4.5); HEMATOCRIT 43.7 % (32.4-45.2); HEMOGLOBIN 13.9 GM/dL (10.7-15.3); LYMPH % 18.2 % (8-40); MCH 26.8 pg (25.7-33.7); MCHC 31.8 g/dl (32.0-36.0); MEAN CELL VOLUME 84.4 fl (80-96); MEAN PLT VOLUME 9.3 fl (7.5-11.1); MONO % 11.1 % (3.8-10.2); NEUT % 65.3 % (42.8-82.8); PLATELET COUNT 303 10^3/uL (134-434); RBC 5.18 M/mm3 (3.60-5.2); RDW 14.5 % (11.6-15.6); WHITE BLOOD COUNT 11.8 K/mm3 (4.0-10.0)
[2022-06-13 08:41] LABS: CALCIUM 9.2 mg/dL (8.5-10.1)
[2022-06-13 08:44] LABS: ALBUMIN 3.1 g/dl (3.4-5.0); BLOOD UREA NITROGEN 19.6 mg/dL (7-18)
[2022-06-13 08:46] LABS: CREATININE 0.4 mg/dL (0.55-1.3); PHOSPHOROUS 3.8 mg/dL (2.5-4.9); TOT PROT 6.6 g/dl (6.4-8.2)
[2022-06-13 08:48] LABS: BILIRUBIN,TOTAL 1.2 mg/dL (0.2-1)
[2022-06-13] MEDS ORDERED: POTASSIUM CHLORIDE ORAL LIQUID 20 MEQ/15 ML PO ONE (09:52)
[2022-06-13] MEDS ORDERED: PATIENT'S OWN MEDICATION (NON-FORMULARY) (Omeprazole 20 MG Capsule.Dr) GT SCH (10:00)
[2022-06-13] MEDS ORDERED: predniSONE 5 MG/5 ML ORAL SOLN- UNIT-DOSE CUP PEG SCH (10:00)
[2022-06-13] MEDS: BUDESONIDE/FORMETEROL FUMARATE 80/4.5 mcg INHALER IH SCH (10:06)
[2022-06-13] MEDS: ACETAMINOPHEN 650 MG/20.3 ML ORAL SOLUTION (CUPS) PO PRN (10:12)
[2022-06-13] MEDS: FAMOTIDINE 40 MG/5 ML ORAL SUSPENSION GT SCH ×2 (10:13→23:09)
[2022-06-13] MEDS: BACLOFEN 10 MG TABLET (FP) PO SCH ×2 (10:13→23:07)
[2022-06-13] MEDS: DOCUSATE NA 100 MG/10 ML UNIT-DOSE CUPS GT SCH ×2 (10:13→23:08)
[2022-06-13] MEDS ORDERED: LORazepam 0.5 MG TABLET PO ONE (11:07)
[2022-06-13] MEDS ORDERED: predniSONE 20 MG TABLET (UD) PEG SCH (11:12)
[2022-06-13] MEDS: predniSONE 20 MG TABLET (UD) PO SCH ×2 (14:17→15:21)
[2022-06-13] MEDS: PHENobarbital 20 MG/5 ML UNIT-DOSE CUP PEG SCH (23:07)
[2022-06-13] MEDS: MONTELUKAST NA 5 MG TAB.CHEW PO SCH (23:07)
[2022-06-13] MEDS: ENOXAPARIN NA (PORCINE) 30 MG/0.3 ML DISP.SYRIN SQ SCH (23:08)
[2022-06-14] MEDS: BUDESONIDE/FORMETEROL FUMARATE 80/4.5 mcg INHALER IH SCH ×2 (00:02→10:25)
[2022-06-14] MEDS: LEVOTHYROXINE NA 25 MCG TABLET (FP) GT SCH (07:39)
[2022-06-14] MEDS: ALBUTEROL SO4 2.5/IPRATROPIUM 0.5 INH SOL 3 ML VIAL.NEB. NEB SCH ×2 (08:15→12:09)
[2022-06-14] MEDS: ACETAMINOPHEN 650 MG/20.3 ML ORAL SOLUTION (CUPS) PO PRN (10:23)
[2022-06-14] MEDS: predniSONE 20 MG TABLET (UD) PO SCH (10:24)
[2022-06-14] MEDS: FAMOTIDINE 40 MG/5 ML ORAL SUSPENSION GT SCH (10:24)
[2022-06-14] MEDS: DOCUSATE NA 100 MG/10 ML UNIT-DOSE CUPS GT SCH (10:24)
[2022-06-14] MEDS: BACLOFEN 10 MG TABLET (FP) PO SCH (10:24)
[2022-06-14 11:15] LABS: BASO % 0.3 % (0-2.0); HEMATOCRIT 41.3 % (32.4-45.2); HEMOGLOBIN 13.1 GM/dL (10.7-15.3); LYMPH % 17.5 % (8-40); MCH 26.9 pg (25.7-33.7); MCHC 31.8 g/dl (32.0-36.0); MEAN CELL VOLUME 84.4 fl (80-96); MEAN PLT VOLUME 9.5 fl (7.5-11.1); MONO % 10.6 % (3.8-10.2); NEUT % 64.6 % (42.8-82.8); PLATELET COUNT 267 10^3/uL (134-434); RBC 4.89 M/mm3 (3.60-5.2); RDW 14.7 % (11.6-15.6); WHITE BLOOD COUNT 11.2 K/mm3 (4.0-10.0)
[2022-06-14 11:37] LABS: BLOOD UREA NITROGEN 16.6 mg/dL (7-18); CALCIUM 9.1 mg/dL (8.5-10.1)
[2022-06-14 11:40] LABS: CREATININE 0.3 mg/dL (0.55-1.3); PHOSPHOROUS 2.4 mg/dL (2.5-4.9)
[2022-06-14 11:41] LABS: TOT PROT 6.6 g/dl (6.4-8.2)
[2022-06-14 11:46] LABS: BILIRUBIN,TOTAL 0.2 mg/dL (0.2-1)
[2022-06-14 11:54] VITALS: BP 111/70; PULSE 88; RESP 17; TEMP 97.8
== END 2022-06-14 15:55 | DRG 133 ==
LOC: JER 00:26 → JERBED 02:19 → J4S 06-04 01:17
PROVIDERS: ADMIT Internal Medicine
DX: J96.01 Acute respiratory failure with hypoxia (principal); J45.901 Unspecified asthma with (acute) exacerbation; F79 Unspecified intellectual disabilities; G40.901 Epilepsy, unspecified, not intractable, with status epilepticus; G80.9 Cerebral palsy, unspecified; R53.2 Functional quadriplegia; I25.10 Atherosclerotic heart disease of native coronary artery without angina pectoris; Q67.5 Congenital deformity of spine; E03.9 Hypothyroidism, unspecified; K21.9 Gastro-esophageal reflux disease without esophagitis; K59.00 Constipation, unspecified; J96.02 Acute respiratory failure with hypercapnia; K94.23 Gastrostomy malfunction; L91.0 Hypertrophic scar; Q65.89 Other specified congenital deformities of hip; K20.80 Other esophagitis without bleeding
CPT/HCPCS: 0241U-QW; 36415; 49465; 71045-TC-FY; 80048; 80053; 80184; 82550; 82553; 82803; 82962; 83605; 83735; 84100; 84484; 85025; 85027; 85610; 85730; 86850; 86900; 86901; 87040; 93005; 93010; 94640; 94660; 99285-25; J0475

== ENCOUNTER 2022-06-16 02:58 | Inpatient (IN) | payer OTHER ==
[2022-06-16] MEDS ORDERED: DEXAMETHASONE SOD PHOSPHATE 10 MG/1 ML VIAL IVPUSH ONE (03:04)
[2022-06-16] MEDS ORDERED: MAGNESIUM SULF 50% (8.12 MEQ/2 ML-1 GM VIAL) IVPB ONE (03:04)
[2022-06-16] MEDS: ALBUTEROL SO4 2.5/IPRATROPIUM 0.5 INH SOL 3 ML VIAL.NEB. NEB SCH ×7 (03:16→20:15)
[2022-06-16] MEDS ORDERED: EPINEPHrine 1:1,000 1,000 MCG/ML ML SQ ONE (03:19)
[2022-06-16 03:53] LABS: VENOUS BASE EXCESS -0.9 mmol/L (-2-2); VENOUS O2 SATURATION 59.9 % (70-80); VENOUS PCO2 58.3 mmHg (38-52); VENOUS PH 7.285 (7.310-7.410)
[2022-06-16 04:07] LABS: BASO % 0.5 % (0-2.0); EOS % 2.6 % (0-4.5); HEMATOCRIT 45.9 % (32.4-45.2); HEMOGLOBIN 14.3 GM/dL (10.7-15.3); LYMPH % 14.6 % (8-40); MCH 26.4 pg (25.7-33.7); MCHC 31.1 g/dl (32.0-36.0); MEAN CELL VOLUME 84.8 fl (80-96); MEAN PLT VOLUME 9.6 fl (7.5-11.1); MONO % 7.1 % (3.8-10.2); NEUT % 75.2 % (42.8-82.8); PLATELET COUNT 323 10^3/uL (134-434); RBC 5.42 M/mm3 (3.60-5.2); RDW 15.2 % (11.6-15.6); WHITE BLOOD COUNT 15.3 K/mm3 (4.0-10.0)
[2022-06-16 04:18] LABS: ALBUMIN 3.4 g/dl (3.4-5.0); BLOOD UREA NITROGEN 12.5 mg/dL (7-18); CALCIUM 9.7 mg/dL (8.5-10.1)
[2022-06-16 04:21] LABS: CREATININE 0.5 mg/dL (0.55-1.3)
[2022-06-16 04:23] LABS: BILIRUBIN,TOTAL 0.2 mg/dL (0.2-1); LACTIC ACID 2.1 mmol/L (0.4-2.0); TOT PROT 7.4 g/dl (6.4-8.2)
[2022-06-16] MEDS ORDERED: ALBUTEROL SO4 2.5/IPRATROPIUM 0.5 INH SOL 3 ML VIAL.NEB. NEB ONE ×3 (09:51→20:12)
[2022-06-16] MEDS ORDERED: BACLOFEN 10 MG TABLET (FP) ONE ×2 (09:51→21:03)
[2022-06-16] MEDS ORDERED: ENOXAPARIN NA (PORCINE) 30 MG/0.3 ML DISP.SYRIN SQ ONE (09:51)
[2022-06-16] MEDS ORDERED: methylPREDNISolone NA SUCC 40 MG/1 ML VIAL ONE (09:52)
[2022-06-16] MEDS: methylPREDNISolone NA SUCC 40 MG/1 ML VIAL IVPUSH SCH (10:22)
[2022-06-16] MEDS: ENOXAPARIN NA (PORCINE) 30 MG/0.3 ML DISP.SYRIN SQ SCH (10:22)
[2022-06-16] MEDS: BACLOFEN 10 MG TABLET (FP) GT SCH ×2 (10:22→21:10)
[2022-06-16] MEDS ORDERED: PHENobarbital 20 MG/5 ML UNIT-DOSE CUP ONE (21:03)
[2022-06-16] MEDS ORDERED: PHENobarbital 20 MG/5 ML UNIT-DOSE CUP GT SCH (22:00)
[2022-06-17] MEDS ORDERED: BUDESONIDE/FORMETEROL FUMARATE 80/4.5 mcg INHALER IH SCH (10:00)
[2022-06-17] MEDS ORDERED: ALBUTEROL SO4 2.5/IPRATROPIUM 0.5 INH SOL 3 ML VIAL.NEB. NEB ONE (10:17)
[2022-06-17] MEDS ORDERED: BACLOFEN 10 MG TABLET (FP) ONE (10:17)
[2022-06-17] MEDS ORDERED: methylPREDNISolone NA SUCC 40 MG/1 ML VIAL ONE (10:18)
[2022-06-17] MEDS ORDERED: ENOXAPARIN NA (PORCINE) 30 MG/0.3 ML DISP.SYRIN SQ ONE (10:18)
[2022-06-17] MEDS: ALBUTEROL SO4 2.5/IPRATROPIUM 0.5 INH SOL 3 ML VIAL.NEB. NEB SCH (10:19)
[2022-06-17] MEDS: DOCUSATE NA 100 MG/10 ML UNIT-DOSE CUPS GT SCH (10:20)
[2022-06-17] MEDS: ENOXAPARIN NA (PORCINE) 30 MG/0.3 ML DISP.SYRIN SQ SCH (10:20)
[2022-06-17] MEDS: BACLOFEN 10 MG TABLET (FP) GT SCH (10:20)
[2022-06-17] MEDS: methylPREDNISolone NA SUCC 40 MG/1 ML VIAL IVPUSH SCH (10:20)
[2022-06-17 17:40] LABS: HEMATOCRIT 43.5 % (32.4-45.2); HEMOGLOBIN 13.9 GM/dL (10.7-15.3); MCH 26.8 pg (25.7-33.7); MCHC 31.9 g/dl (32.0-36.0); MEAN CELL VOLUME 83.9 fl (80-96); PLATELET COUNT 304 10^3/uL (134-434); RBC 5.19 M/mm3 (3.60-5.2); RDW 14.5 % (11.6-15.6); WHITE BLOOD COUNT 14.3 K/mm3 (4.0-10.0)
[2022-06-17 18:06] LABS: ALBUMIN 3.4 g/dl (3.4-5.0); BLOOD UREA NITROGEN 13.1 mg/dL (7-18); CALCIUM 9.4 mg/dL (8.5-10.1)
[2022-06-17 18:09] LABS: CREATININE 0.3 mg/dL (0.55-1.3)
[2022-06-17 18:11] LABS: BILIRUBIN,TOTAL 0.2 mg/dL (0.2-1); TOT PROT 7.4 g/dl (6.4-8.2)
[2022-06-17] MEDS ORDERED: PATIENT'S OWN MEDICATION (NON-FORMULARY) (Phenobarbital [Phenobarbital] 64.8 MG Tablet) PEG SCH (22:00)
[2022-06-17] MEDS ORDERED: PHENobarbital 20 MG/5 ML UNIT-DOSE CUP PEG SCH (22:00)
[2022-06-18] MEDS ORDERED: ALBUTEROL SO4 0.083% IH SOL 2.5 MG/3 ML VIAL.NEB. NEB PRN (08:50)
[2022-06-18] MEDS ORDERED: ALBUTEROL SO4 0.083% IH SOL 2.5 MG/3 ML VIAL.NEB. NEB ONE (09:28)
[2022-06-18] MEDS ORDERED: MONTELUKAST NA 10 MG TABLET ONE (09:38)
[2022-06-18] MEDS ORDERED: BACLOFEN 10 MG TABLET (FP) ONE (09:38)
[2022-06-18] MEDS ORDERED: methylPREDNISolone NA SUCC 40 MG/1 ML VIAL ONE (09:40)
[2022-06-18] MEDS ORDERED: ENOXAPARIN NA (PORCINE) 30 MG/0.3 ML DISP.SYRIN SQ ONE (09:40)
[2022-06-18] MEDS: DOCUSATE NA 100 MG/10 ML UNIT-DOSE CUPS GT SCH ×2 (09:49→22:09)
[2022-06-18] MEDS: BACLOFEN 10 MG TABLET (FP) GT SCH ×2 (09:50→22:09)
[2022-06-18] MEDS: ENOXAPARIN NA (PORCINE) 30 MG/0.3 ML DISP.SYRIN SQ SCH (09:50)
[2022-06-18] MEDS: methylPREDNISolone NA SUCC 40 MG/1 ML VIAL IVPUSH SCH (09:51)
[2022-06-18] MEDS ORDERED: ALBUTEROL SO4 0.083% IH SOL 2.5 MG/3 ML VIAL.NEB. NEB SCH (10:15)
[2022-06-18] MEDS ORDERED: PHENobarbital 20 MG/5 ML UNIT-DOSE CUP ONE ×2 (12:15→13:59)
[2022-06-18] MEDS: LEVOTHYROXINE NA 25 MCG TABLET (FP) GT SCH (12:20)
[2022-06-18] MEDS: PHENobarbital 20 MG/5 ML UNIT-DOSE CUP PO SCH ×3 (12:48→22:18)
[2022-06-18] MEDS: BUDESONIDE 0.25 MG/2ML INH SUSP VIAL NEB SCH (21:02)
[2022-06-18] MEDS: MONTELUKAST NA 10 MG TABLET GT SCH (22:09)
[2022-06-18] MEDS: ALBUTEROL SO4 0.083% IH SOL 2.5 MG/3 ML VIAL.NEB. NEB SCH (23:24)
[2022-06-19] MEDS: ALBUTEROL SO4 0.083% IH SOL 2.5 MG/3 ML VIAL.NEB. NEB SCH ×6 (04:13→23:46)
[2022-06-19 05:10] VITALS: BMI 21.0
[2022-06-19] MEDS: LEVOTHYROXINE NA 25 MCG TABLET (FP) GT SCH (06:21)
[2022-06-19] MEDS: BUDESONIDE 0.25 MG/2ML INH SUSP VIAL NEB SCH ×2 (08:15→20:45)
[2022-06-19 08:24] LABS: BASO % 0.5 % (0-2.0); EOS % 1.6 % (0-4.5); HEMATOCRIT 39.1 % (32.4-45.2); HEMOGLOBIN 12.4 GM/dL (10.7-15.3); LYMPH % 13.3 % (8-40); MCH 26.7 pg (25.7-33.7); MCHC 31.8 g/dl (32.0-36.0); MEAN CELL VOLUME 84.2 fl (80-96); MEAN PLT VOLUME 9.1 fl (7.5-11.1); MONO % 9.6 % (3.8-10.2); PLATELET COUNT 290 10^3/uL (134-434); RBC 4.65 M/mm3 (3.60-5.2); RDW 15.2 % (11.6-15.6); WHITE BLOOD COUNT 13.7 K/mm3 (4.0-10.0)
[2022-06-19 08:44] LABS: CALCIUM 8.8 mg/dL (8.5-10.1)
[2022-06-19 08:45] LABS: ALBUMIN 2.8 g/dl (3.4-5.0); BLOOD UREA NITROGEN 15.1 mg/dL (7-18); MAGNESIUM 2.1 mg/dL (1.8-2.4)
[2022-06-19 08:48] LABS: CREATININE 0.3 mg/dL (0.55-1.3); PHOSPHOROUS 3.3 mg/dL (2.5-4.9)
[2022-06-19 08:50] LABS: BILIRUBIN,TOTAL 0.2 mg/dL (0.2-1); TOT PROT 6.3 g/dl (6.4-8.2)
[2022-06-19] MEDS: ENOXAPARIN NA (PORCINE) 30 MG/0.3 ML DISP.SYRIN SQ SCH (11:23)
[2022-06-19] MEDS: DOCUSATE NA 100 MG/10 ML UNIT-DOSE CUPS GT SCH ×2 (11:24→22:34)
[2022-06-19] MEDS: BACLOFEN 10 MG TABLET (FP) GT SCH ×2 (11:24→22:34)
[2022-06-19] MEDS: predniSONE 20 MG TABLET (UD) PO SCH (11:26)
[2022-06-19] MEDS: MONTELUKAST NA 10 MG TABLET GT SCH (22:34)
[2022-06-19] MEDS: PHENobarbital 20 MG/5 ML UNIT-DOSE CUP PEG SCH (22:35)
[2022-06-20] MEDS: ALBUTEROL SO4 0.083% IH SOL 2.5 MG/3 ML VIAL.NEB. NEB SCH ×5 (03:16→20:40)
[2022-06-20] MEDS: LEVOTHYROXINE NA 25 MCG TABLET (FP) GT SCH (06:10)
[2022-06-20 07:21] LABS: BASO % 0.2 % (0-2.0); EOS % 3.1 % (0-4.5); HEMATOCRIT 37.3 % (32.4-45.2); HEMOGLOBIN 12.3 GM/dL (10.7-15.3); LYMPH % 19.5 % (8-40); MCH 27.5 pg (25.7-33.7); MCHC 32.9 g/dl (32.0-36.0); MEAN CELL VOLUME 83.7 fl (80-96); MEAN PLT VOLUME 8.9 fl (7.5-11.1); MONO % 7.9 % (3.8-10.2); NEUT % 69.3 % (42.8-82.8); PLATELET COUNT 290 10^3/uL (134-434); RBC 4.46 M/mm3 (3.60-5.2); RDW 14.7 % (11.6-15.6); WHITE BLOOD COUNT 12.2 K/mm3 (4.0-10.0)
[2022-06-20 07:43] LABS: CALCIUM 9.1 mg/dL (8.5-10.1)
[2022-06-20 07:44] LABS: BLOOD UREA NITROGEN 14.9 mg/dL (7-18); MAGNESIUM 1.9 mg/dL (1.8-2.4)
[2022-06-20 07:47] LABS: CREATININE 0.4 mg/dL (0.55-1.3)
[2022-06-20 07:48] LABS: BILIRUBIN,TOTAL 0.2 mg/dL (0.2-1); TOT PROT 6.6 g/dl (6.4-8.2)
[2022-06-20] MEDS: BUDESONIDE 0.25 MG/2ML INH SUSP VIAL NEB SCH ×3 (08:11→20:40)
[2022-06-20] MEDS: ENOXAPARIN NA (PORCINE) 30 MG/0.3 ML DISP.SYRIN SQ SCH (11:23)
[2022-06-20] MEDS: predniSONE 20 MG TABLET (UD) PO SCH (11:23)
[2022-06-20] MEDS: DOCUSATE NA 100 MG/10 ML UNIT-DOSE CUPS GT SCH ×2 (11:24→22:44)
[2022-06-20] MEDS: BACLOFEN 10 MG TABLET (FP) GT SCH ×3 (11:25→22:44)
[2022-06-20] MEDS: MONTELUKAST NA 10 MG TABLET GT SCH ×2 (22:43→22:44)
[2022-06-20] MEDS: PHENobarbital 20 MG/5 ML UNIT-DOSE CUP PEG SCH (22:44)
[2022-06-21] MEDS: ALBUTEROL SO4 0.083% IH SOL 2.5 MG/3 ML VIAL.NEB. NEB SCH ×4 (00:18→11:24)
[2022-06-21] MEDS: LEVOTHYROXINE NA 25 MCG TABLET (FP) GT SCH (06:32)
[2022-06-21] MEDS: BUDESONIDE 0.25 MG/2ML INH SUSP VIAL NEB SCH (07:35)
[2022-06-21] MEDS: BACLOFEN 10 MG TABLET (FP) GT SCH (10:06)
[2022-06-21] MEDS: predniSONE 20 MG TABLET (UD) PO SCH (10:06)
[2022-06-21] MEDS: ENOXAPARIN NA (PORCINE) 30 MG/0.3 ML DISP.SYRIN SQ SCH (10:07)
[2022-06-21] MEDS: DOCUSATE NA 100 MG/10 ML UNIT-DOSE CUPS GT SCH (10:07)
[2022-06-21 11:51] VITALS: BP 99/53; PULSE 88; RESP 16; TEMP 98.2
== END 2022-06-21 13:06 | DRG 141 ==
LOC: JER 02:58 → JERBED 03:07 → J4W 06-18 19:24
PROVIDERS: ADMIT Internal Medicine
DX: J45.901 Unspecified asthma with (acute) exacerbation (principal); Q02 Microcephaly; G82.50 Quadriplegia, unspecified; I25.10 Atherosclerotic heart disease of native coronary artery without angina pectoris; G40.909 Epilepsy, unspecified, not intractable, without status epilepticus; E03.9 Hypothyroidism, unspecified; K20.80 Other esophagitis without bleeding; F72 Severe intellectual disabilities; J98.11 Atelectasis; J96.11 Chronic respiratory failure with hypoxia; J96.12 Chronic respiratory failure with hypercapnia; J98.4 Other disorders of lung; K21.9 Gastro-esophageal reflux disease without esophagitis; Z93.1 Gastrostomy status; K59.00 Constipation, unspecified; Q67.5 Congenital deformity of spine; L91.0 Hypertrophic scar
CPT/HCPCS: 0241U-QW; 36415; 71045-TC-FY; 80053; 82803; 82962; 83605; 83735; 84100; 84443; 85025; 85027; 87040; 93005; 93010; 94640; 94660; 94761; 99285-25; C9803-CS; J0475; J1100; U0003; U0005

== ENCOUNTER 2022-08-06 15:01 | Inpatient (IN) | payer OTHER ==
[2022-08-06] MEDS ORDERED: methylPREDNISolone NA SUCC 125 MG/2 ML VIAL IVPB ONE (15:10)
[2022-08-06] MEDS ORDERED: MAGNESIUM SULF 50% (8.12 MEQ/2 ML-1 GM VIAL) IVPB ONE (15:12)
[2022-08-06] MEDS ORDERED: ALBUTEROL SO4 2.5/IPRATROPIUM 0.5 INH SOL 3 ML VIAL.NEB. NEB ONE (15:34)
[2022-08-06] MEDS ORDERED: MAGNESIUM SULFATE IN WATER 2 GM/50 ML IVPB IVPB ONE (15:56)
[2022-08-06] MEDS ORDERED: methylPREDNISolone NA SUCC 125 MG/2 ML VIAL ONE (15:56)
[2022-08-06] MEDS: ALBUTEROL SO4 2.5/IPRATROPIUM 0.5 INH SOL 3 ML VIAL.NEB. NEB SCH ×2 (16:04→23:45)
[2022-08-06] MEDS ORDERED: VANCOMYCIN 1,000 MG in DEXTROSE 5%-WATER - 250 ML IVPB ONE (16:24)
[2022-08-06] MEDS ORDERED: SODIUM CHLORIDE 0.9% 1000 ML INFUS.BAG IV ONE (16:25)
[2022-08-06] MEDS ORDERED: PIPERACILLIN/TAZOB 4.5 GM 4.5 GM in DEXTROSE 5%-WATER 100 ML IVPB ONE (16:25)
[2022-08-06 16:26] LABS: ARTERIAL BLD GAS O2 SATURATION 88.2 % (95-98); ARTERIAL BLOOD GAS BASE EXCESS -0.8 mmol/L (-2-2); ARTERIAL BLOOD GAS pH 7.289 (7.350-7.450)
[2022-08-06] MEDS ORDERED: ACETAMINOPHEN 1000 MG/100 ML BAG IVPB ONE (16:27)
[2022-08-06] MEDS ORDERED: PIPERACILLIN/TAZOB 4.5 GM 4.5 GM/100 ML BAG IVPB ONE (16:38)
[2022-08-06] MEDS ORDERED: ACETAMINOPHEN INJECTION 100 ML IVPB ONE (16:38)
[2022-08-06] MEDS ORDERED: VANCOMYCIN/WATER FOR INJ (PEG) 1,000 MG/200 ML BAG IVPB ONE (16:38)
[2022-08-06 16:59] LABS: BASO % 0.2 % (0-2.0); EOS % 6.5 % (0-4.5); HEMATOCRIT 42.1 % (32.4-45.2); HEMOGLOBIN 13.4 GM/dL (10.7-15.3); LYMPH % 13.9 % (8-40); MCH 26.9 pg (25.7-33.7); MEAN CELL VOLUME 84.1 fl (80-96); MEAN PLT VOLUME 9.1 fl (7.5-11.1); NEUT % 71.4 % (42.8-82.8); PLATELET COUNT 357 10^3/uL (134-434); RDW 14.5 % (11.6-15.6); WHITE BLOOD COUNT 13.7 K/mm3 (4.0-10.0)
[2022-08-06 17:04] LABS: CHLORIDE 103 mmol/L (98-107); SODIUM 136 mmol/L (136-145)
[2022-08-06] MEDS ORDERED: ALBUTEROL SO4 0.083% IH SOL 2.5 MG/3 ML VIAL.NEB. NEB ONE ×2 (17:05→17:32)
[2022-08-06 17:06] LABS: ALBUMIN 3.6 g/dl (3.4-5.0); ANION GAP 8 MMOL/L (8-16); BLOOD UREA NITROGEN 13.6 mg/dL (7-18); CALCIUM 9.1 mg/dL (8.5-10.1); CO2 25 mmol/L (21-32); GLUCOSE,RANDOM 99 mg/dL (74-106); MAGNESIUM 2.2 mg/dL (1.8-2.4)
[2022-08-06 17:09] LABS: CREATININE 0.4 mg/dL (0.55-1.3); SGOT/AST 22 U/L (15-37); SGPT/ALT 30 U/L (13-61)
[2022-08-06 17:11] LABS: BILIRUBIN,TOTAL 0.2 mg/dL (0.2-1); TOT PROT 7.8 g/dl (6.4-8.2)
[2022-08-06 17:12] LABS: ALK PHOS 88 U/L (45-117)
[2022-08-06] MEDS ORDERED: EPINEPHrine/PF 1 MG/1 ML (1:1,000) AMPULE SQ ONE (17:13)
[2022-08-06] MEDS ORDERED: EPINEPHrine 1:10,000 (P-F SYR) 1 MG/10 ML DISP.SYRIN ONE (17:22)
[2022-08-06] MEDS ORDERED: EPINEPHrine/PF 1 MG/1 ML (1:1,000) AMPULE ONE (17:23)
[2022-08-06 18:32] LABS: ARTERIAL BLOOD GAS BASE EXCESS -2.3 mmol/L (-2-2); ARTERIAL BLOOD GAS PO2 158.9 mmHg (80-100); ARTERIAL BLOOD GAS pH 7.356 (7.350-7.450)
[2022-08-06 18:33] LABS: ALLENS TEST POSITIVE; VENT MODE IPAP 10
[2022-08-06 18:34] LABS: VENT RATE 12
[2022-08-06] MEDS ORDERED: ALBUTEROL SO4 0.083% IH SOL 2.5 MG/3 ML VIAL.NEB. NEB SCH (19:30)
[2022-08-06 20:25] VITALS: BMI 20.8
[2022-08-06] MEDS: BACLOFEN 10 MG TABLET (FP) GT SCH (21:42)
[2022-08-06] MEDS: MUPIROCIN 2% TOPICAL OINTMENT FOR DECOLONIZATION NS SCH (21:43)
[2022-08-06] MEDS: CHLORHEXIDINE GLUCONATE 4% CLEANSER FOR DECOLONIZATION TP SCH (21:43)
[2022-08-06] MEDS: COD LIVER OIL/ZINC OXIDE PASTE 56 GM TUBE TP SCH (21:43)
[2022-08-06] MEDS: BUDESONIDE/FORMETEROL FUMARATE 80/4.5 mcg INHALER IH SCH (21:44)
[2022-08-06] MEDS: MONTELUKAST NA 10 MG TABLET PEG SCH (21:46)
[2022-08-06] MEDS: PHENobarbital 30 MG TABLET PEG SCH (21:46)
[2022-08-06] MEDS: DOCUSATE NA 100 MG/10 ML UNIT-DOSE CUPS GT SCH (21:46)
[2022-08-06] MEDS ORDERED: PATIENT'S OWN MEDICATION (NON-FORMULARY) (Phenobarbital [Phenobarbital] 64.8 MG Tablet) PEG SCH (22:00)
[2022-08-07] MEDS ORDERED: methylPREDNISolone NA SUCC 125 MG/2 ML VIAL IVPUSH SCH (02:00)
[2022-08-07 02:42] LABS: URINE APPEARANCE CLEAR; URINE BILIRUBIN NEGATIVE (NEGATIVE); URINE COLOR YELLOW; URINE GLUCOSE (UA) NEGATIVE (NEGATIVE); URINE KETONE TRACE (NEGATIVE); URINE LEUK ESTERASE NEGATIVE (NEGATIVE); URINE NITRITE NEGATIVE (NEGATIVE); URINE PROTEIN TRACE (NEGATIVE); URINE UROBILINOGEN 0.2 mg/dL (0.2-1.0)
[2022-08-07] MEDS: ALBUTEROL SO4 2.5/IPRATROPIUM 0.5 INH SOL 3 ML VIAL.NEB. NEB SCH ×5 (02:54→20:05)
[2022-08-07] MEDS: LEVOTHYROXINE NA 25 MCG TABLET (FP) GT SCH (06:16)
[2022-08-07 07:05] LABS: BASO % 0.1 % (0-2.0); HEMATOCRIT 40.5 % (32.4-45.2); HEMOGLOBIN 13.3 GM/dL (10.7-15.3); MCH 27.5 pg (25.7-33.7); MCHC 32.8 g/dl (32.0-36.0); MEAN CELL VOLUME 83.9 fl (80-96); MEAN PLT VOLUME 8.7 fl (7.5-11.1); NEUT % 94.9 % (42.8-82.8); PLATELET COUNT 306 10^3/uL (134-434); RBC 4.83 M/mm3 (3.60-5.2); RDW 14.8 % (11.6-15.6); WHITE BLOOD COUNT 12.5 K/mm3 (4.0-10.0)
[2022-08-07 07:08] LABS: ARTERIAL BLD GAS O2 SATURATION 98.9 % (95-98); ARTERIAL BLOOD GAS PO2 150.7 mmHg (80-100); ARTERIAL BLOOD GAS pH 7.372 (7.350-7.450)
[2022-08-07 07:09] LABS: ALLENS TEST POSITIVE
[2022-08-07 07:10] LABS: VENT MODE S/T; VENT RATE 16
[2022-08-07 07:11] LABS: CALCIUM 8.7 mg/dL (8.5-10.1)
[2022-08-07 07:12] LABS: ALBUMIN 3.4 g/dl (3.4-5.0); BLOOD UREA NITROGEN 13.5 mg/dL (7-18); MAGNESIUM 2.5 mg/dL (1.8-2.4)
[2022-08-07 07:15] LABS: CREATININE 0.3 mg/dL (0.55-1.3)
[2022-08-07 07:16] LABS: BILIRUBIN,TOTAL 0.3 mg/dL (0.2-1); TOT PROT 7.5 g/dl (6.4-8.2)
[2022-08-07] MEDS ORDERED: methylPREDNISolone NA SUCC 40 MG/1 ML VIAL IVPUSH SCH (08:00)
[2022-08-07] MEDS: ENOXAPARIN NA (PORCINE) 40 MG/0.4 ML DISP.SYRIN SQ SCH (09:42)
[2022-08-07] MEDS: MUPIROCIN 2% TOPICAL OINTMENT FOR DECOLONIZATION NS SCH ×2 (09:43→22:36)
[2022-08-07] MEDS: DOCUSATE NA 100 MG/10 ML UNIT-DOSE CUPS GT SCH ×2 (09:43→22:37)
[2022-08-07] MEDS: BACITRACIN ZINC 15 GM TUBE TOPICAL OINTMENT TP SCH (09:43)
[2022-08-07] MEDS: PANTOPRAZOLE SODIUM 40 MG VIAL IVPUSH SCH (09:43)
[2022-08-07] MEDS: BACLOFEN 10 MG TABLET (FP) GT SCH ×2 (09:44→22:37)
[2022-08-07] MEDS: COD LIVER OIL/ZINC OXIDE PASTE 56 GM TUBE TP SCH ×4 (09:44→22:39)
[2022-08-07] MEDS: BUDESONIDE/FORMETEROL FUMARATE 80/4.5 mcg INHALER IH SCH ×2 (09:45→22:38)
[2022-08-07 09:47] LABS: ANISOCYTOSIS 0; MACROCYTOSIS 0
[2022-08-07] MEDS ORDERED: PATIENT'S OWN MEDICATION (NON-FORMULARY) (Omeprazole 20 MG Capsule.Dr) GT SCH (10:00)
[2022-08-07] MEDS: methylPREDNISolone NA SUCC 40 MG/1 ML VIAL IVPUSH SCH (17:14)
[2022-08-07] MEDS ORDERED: MONTELUKAST NA 10 MG TABLET GT SCH (22:00)
[2022-08-07] MEDS: MONTELUKAST NA 10 MG TABLET PEG SCH (22:37)
[2022-08-07] MEDS: CHLORHEXIDINE GLUCONATE 4% CLEANSER FOR DECOLONIZATION TP SCH (22:37)
[2022-08-07] MEDS: PHENobarbital 30 MG TABLET PEG SCH (22:39)
[2022-08-07] MEDS ORDERED: MELATONIN 5 MG TABLETS PO PRN (23:21)
[2022-08-07] MEDS ORDERED: ACETAMINOPHEN 1000 MG/100 ML BAG IVPB ONE (23:21)
[2022-08-08] MEDS: ALBUTEROL SO4 2.5/IPRATROPIUM 0.5 INH SOL 3 ML VIAL.NEB. NEB SCH ×6 (00:02→20:11)
[2022-08-08] MEDS: methylPREDNISolone NA SUCC 40 MG/1 ML VIAL IVPUSH SCH ×3 (03:08→19:07)
[2022-08-08] MEDS: LEVOTHYROXINE NA 25 MCG TABLET (FP) GT SCH (06:15)
[2022-08-08] MEDS: DOCUSATE NA 100 MG/10 ML UNIT-DOSE CUPS GT SCH ×2 (09:28→21:31)
[2022-08-08] MEDS: PANTOPRAZOLE SODIUM 40 MG VIAL IVPUSH SCH (09:28)
[2022-08-08] MEDS: ENOXAPARIN NA (PORCINE) 40 MG/0.4 ML DISP.SYRIN SQ SCH (09:28)
[2022-08-08] MEDS: MUPIROCIN 2% TOPICAL OINTMENT FOR DECOLONIZATION NS SCH (09:29)
[2022-08-08] MEDS: BACITRACIN ZINC 15 GM TUBE TOPICAL OINTMENT TP SCH (09:29)
[2022-08-08] MEDS: COD LIVER OIL/ZINC OXIDE PASTE 56 GM TUBE TP SCH ×4 (09:29→21:50)
[2022-08-08] MEDS: BACLOFEN 10 MG TABLET (FP) GT SCH ×2 (09:39→21:31)
[2022-08-08] MEDS: BUDESONIDE/FORMETEROL FUMARATE 80/4.5 mcg INHALER IH SCH ×2 (10:30→21:40)
[2022-08-08] MEDS: MONTELUKAST NA 10 MG TABLET PEG SCH (21:32)
[2022-08-08] MEDS: PHENobarbital 30 MG TABLET PEG SCH (21:32)
[2022-08-08] MEDS ORDERED: MUPIROCIN 2% TOPICAL OINTMENT FOR DECOLONIZATION NS SCH (22:00)
[2022-08-08] MEDS ORDERED: CHLORHEXIDINE GLUCONATE 4% CLEANSER FOR DECOLONIZATION TP SCH (22:00)
[2022-08-09] MEDS: ALBUTEROL SO4 2.5/IPRATROPIUM 0.5 INH SOL 3 ML VIAL.NEB. NEB SCH ×6 (00:47→20:03)
[2022-08-09] MEDS ORDERED: methylPREDNISolone NA SUCC 40 MG/1 ML VIAL IVPUSH SCH (02:00)
[2022-08-09] MEDS: LEVOTHYROXINE NA 25 MCG TABLET (FP) GT SCH (06:40)
[2022-08-09 09:24] LABS: BASO % 0.5 % (0-2.0); EOS % 0.1 % (0-4.5); HEMATOCRIT 38.4 % (32.4-45.2); HEMOGLOBIN 12.7 GM/dL (10.7-15.3); LYMPH % 12.5 % (8-40); MCH 27.5 pg (25.7-33.7); MEAN CELL VOLUME 83.5 fl (80-96); MEAN PLT VOLUME 8.7 fl (7.5-11.1); MONO % 7.3 % (3.8-10.2); NEUT % 79.6 % (42.8-82.8); PLATELET COUNT 288 10^3/uL (134-434); RDW 14.8 % (11.6-15.6); WHITE BLOOD COUNT 9.8 K/mm3 (4.0-10.0)
[2022-08-09] MEDS: ENOXAPARIN NA (PORCINE) 40 MG/0.4 ML DISP.SYRIN SQ SCH (09:29)
[2022-08-09] MEDS: predniSONE 20 MG TABLET (UD) GT SCH (09:31)
[2022-08-09] MEDS: DOCUSATE NA 100 MG/10 ML UNIT-DOSE CUPS GT SCH ×2 (09:31→22:12)
[2022-08-09] MEDS: BACLOFEN 10 MG TABLET (FP) GT SCH ×2 (09:31→22:13)
[2022-08-09] MEDS: PANTOPRAZOLE SODIUM 40 MG VIAL IVPUSH SCH (09:31)
[2022-08-09] MEDS: BACITRACIN ZINC 15 GM TUBE TOPICAL OINTMENT TP SCH (09:32)
[2022-08-09] MEDS: BUDESONIDE/FORMETEROL FUMARATE 80/4.5 mcg INHALER IH SCH ×2 (09:33→22:16)
[2022-08-09] MEDS: COD LIVER OIL/ZINC OXIDE PASTE 56 GM TUBE TP SCH ×4 (09:33→22:16)
[2022-08-09 10:09] LABS: CALCIUM 9.1 mg/dL (8.5-10.1)
[2022-08-09 10:10] LABS: BLOOD UREA NITROGEN 19.9 mg/dL (7-18); MAGNESIUM 2.1 mg/dL (1.8-2.4)
[2022-08-09 10:13] LABS: CREATININE 0.4 mg/dL (0.55-1.3)
[2022-08-09] MEDS: PHENobarbital 30 MG TABLET PEG SCH (22:12)
[2022-08-09] MEDS: MONTELUKAST NA 10 MG TABLET PEG SCH (22:13)
[2022-08-10] MEDS: ALBUTEROL SO4 2.5/IPRATROPIUM 0.5 INH SOL 3 ML VIAL.NEB. NEB SCH ×6 (00:03→20:00)
[2022-08-10] MEDS ORDERED: ALBUTEROL SO4 0.083% IH SOL 2.5 MG/3 ML VIAL.NEB. NEB PRN (00:21)
[2022-08-10] MEDS: LEVOTHYROXINE NA 25 MCG TABLET (FP) GT SCH (06:43)
[2022-08-10 08:53] LABS: BASO % 0.2 % (0-2.0); EOS % 1.9 % (0-4.5); HEMATOCRIT 41.9 % (32.4-45.2); HEMOGLOBIN 13.4 GM/dL (10.7-15.3); MCH 26.8 pg (25.7-33.7); MCHC 31.9 g/dl (32.0-36.0); MEAN CELL VOLUME 84.1 fl (80-96); MEAN PLT VOLUME 8.9 fl (7.5-11.1); NEUT % 65.9 % (42.8-82.8); PLATELET COUNT 283 10^3/uL (134-434); RBC 4.98 M/mm3 (3.60-5.2); RDW 14.5 % (11.6-15.6); WHITE BLOOD COUNT 10.8 K/mm3 (4.0-10.0)
[2022-08-10 09:12] LABS: CREATININE 0.3 mg/dL (0.55-1.3)
[2022-08-10] MEDS: predniSONE 20 MG TABLET (UD) GT SCH (09:40)
[2022-08-10] MEDS: DOCUSATE NA 100 MG/10 ML UNIT-DOSE CUPS GT SCH ×2 (09:40→21:21)
[2022-08-10] MEDS: COD LIVER OIL/ZINC OXIDE PASTE 56 GM TUBE TP SCH ×4 (09:40→21:21)
[2022-08-10] MEDS: BACLOFEN 10 MG TABLET (FP) GT SCH ×2 (09:40→21:21)
[2022-08-10] MEDS: BACITRACIN ZINC 15 GM TUBE TOPICAL OINTMENT TP SCH (09:40)
[2022-08-10] MEDS: ENOXAPARIN NA (PORCINE) 40 MG/0.4 ML DISP.SYRIN SQ SCH (09:41)
[2022-08-10] MEDS: BUDESONIDE/FORMETEROL FUMARATE 80/4.5 mcg INHALER IH SCH ×2 (09:41→21:22)
[2022-08-10] MEDS: PANTOPRAZOLE SODIUM 40 MG VIAL IVPUSH SCH (09:41)
[2022-08-10 19:03] VITALS: RESP 18
[2022-08-10] MEDS: MONTELUKAST NA 10 MG TABLET PEG SCH (21:21)
[2022-08-10] MEDS: PHENobarbital 30 MG TABLET PEG SCH (21:21)
[2022-08-11] MEDS: ALBUTEROL SO4 2.5/IPRATROPIUM 0.5 INH SOL 3 ML VIAL.NEB. NEB SCH ×4 (00:05→11:23)
[2022-08-11] MEDS: LEVOTHYROXINE NA 25 MCG TABLET (FP) GT SCH (06:00)
[2022-08-11] MEDS: DOCUSATE NA 100 MG/10 ML UNIT-DOSE CUPS GT SCH (09:37)
[2022-08-11] MEDS: predniSONE 20 MG TABLET (UD) GT SCH (09:37)
[2022-08-11] MEDS: BACLOFEN 10 MG TABLET (FP) GT SCH (09:37)
[2022-08-11] MEDS: ENOXAPARIN NA (PORCINE) 40 MG/0.4 ML DISP.SYRIN SQ SCH (09:37)
[2022-08-11] MEDS: PANTOPRAZOLE SODIUM 40 MG VIAL IVPUSH SCH (09:37)
[2022-08-11] MEDS: COD LIVER OIL/ZINC OXIDE PASTE 56 GM TUBE TP SCH (09:38)
[2022-08-11] MEDS: BACITRACIN ZINC 15 GM TUBE TOPICAL OINTMENT TP SCH (09:38)
[2022-08-11] MEDS: BUDESONIDE/FORMETEROL FUMARATE 80/4.5 mcg INHALER IH SCH (09:38)
[2022-08-11 12:26] VITALS: BP 126/72; PULSE 96; TEMP 97.9
== END 2022-08-11 13:10 | disposition home or self-care (01) | DRG 141 ==
LOC: JER 15:01 → JERBED 17:22 → JICU 18:40 → J8W 08-08 18:55
PROVIDERS: ADMIT Internal Medicine Pulmonary Disease; ATTEND Internal Medicine
DX: J45.901 Unspecified asthma with (acute) exacerbation (principal); J96.01 Acute respiratory failure with hypoxia; R53.2 Functional quadriplegia; Q02 Microcephaly; Z93.1 Gastrostomy status; E03.9 Hypothyroidism, unspecified; F79 Unspecified intellectual disabilities; G40.909 Epilepsy, unspecified, not intractable, without status epilepticus; G80.9 Cerebral palsy, unspecified; K21.9 Gastro-esophageal reflux disease without esophagitis
CPT/HCPCS: 0241U-QW; 36415; 36600; 71045-TC-FY; 80048; 80053; 81003; 82803; 82962; 83605; 83735; 84484; 84703; 85025; 87040; 87086; 93005; 93010; 94640; 94660; 99285-25; J0475

== ENCOUNTER 2022-08-19 04:59 | Inpatient (IN) | payer OTHER ==
[2022-08-19] MEDS ORDERED: methylPREDNISolone NA SUCC 125 MG/2 ML VIAL IVPUSH ONE (05:01)
[2022-08-19] MEDS ORDERED: MAGNESIUM SULF 50% (8.12 MEQ/2 ML-1 GM VIAL) IVPB ONE (05:01)
[2022-08-19 05:28] VITALS: BMI 24.3
[2022-08-19] MEDS: ALBUTEROL SO4 2.5/IPRATROPIUM 0.5 INH SOL 3 ML VIAL.NEB. NEB SCH ×4 (05:33→22:12)
[2022-08-19] MEDS ORDERED: SODIUM CHLORIDE 0.9% 500 ML INFUS.BAG IV ONE (06:09)
[2022-08-19] MEDS ORDERED: ALBUTEROL SO4 0.083% IH SOL 2.5 MG/3 ML VIAL.NEB. NEB ONE ×2 (06:10→06:12)
[2022-08-19 06:34] LABS: VENOUS O2 SATURATION 65.3 % (70-80)
[2022-08-19 06:37] LABS: VENOUS PCO2 71.2 mmHg (38-52); VENOUS PH 7.196 (7.310-7.410)
[2022-08-19 06:55] LABS: BLOOD UREA NITROGEN 22.7 mg/dL (7-18); CALCIUM 10.2 mg/dL (8.5-10.1); CHLORIDE 107 mmol/L (98-107); CO2 27 mmol/L (21-32); GLUCOSE,RANDOM 71 mg/dL (74-106); MAGNESIUM 2.7 mg/dL (1.8-2.4); SODIUM 140 mmol/L (136-145)
[2022-08-19 06:57] LABS: CREATININE 0.4 mg/dL (0.55-1.3)
[2022-08-19 06:59] LABS: SGOT/AST 105 U/L (15-37)
[2022-08-19 07:00] LABS: BILIRUBIN,TOTAL 0.4 mg/dL (0.2-1); TOT PROT 9.3 g/dl (6.4-8.2)
[2022-08-19 07:01] LABS: ALK PHOS 96 U/L (45-117)
[2022-08-19 07:09] LABS: BASO % 0.7 % (0-2.0); EOS % 0.2 % (0-4.5); HEMATOCRIT 49.4 % (32.4-45.2); HEMOGLOBIN 15.8 GM/dL (10.7-15.3); LYMPH % 5.4 % (8-40); MCH 26.2 pg (25.7-33.7); MCHC 31.9 g/dl (32.0-36.0); MEAN PLT VOLUME 10.1 fl (7.5-11.1); MONO % 7.1 % (3.8-10.2); NEUT % 86.6 % (42.8-82.8); PLATELET COUNT 278 10^3/uL (134-434); RBC 6.02 M/mm3 (3.60-5.2); RDW 14.9 % (11.6-15.6); WHITE BLOOD COUNT 21.1 K/mm3 (4.0-10.0)
[2022-08-19 07:12] LABS: ARTERIAL BLD GAS O2 SATURATION 97.6 % (95-98); ARTERIAL BLOOD GAS BASE EXCESS -2.6 mmol/L (-2-2); ARTERIAL BLOOD GAS PO2 105.4 mmHg (80-100); ARTERIAL BLOOD GAS pH 7.344 (7.350-7.450)
[2022-08-19 07:14] LABS: ALLENS TEST POSITIVE
[2022-08-19 07:15] LABS: VENT MODE S/T; VENT RATE 14
[2022-08-19 07:24] LABS: ANION GAP 7 MMOL/L (8-16); SGPT/ALT 43 U/L (13-61)
[2022-08-19] MEDS ORDERED: AZITHROMYCIN IVPB 500 MG in DEXTROSE 5%-WATER - 250 ML IVPB ONE (07:29)
[2022-08-19] MEDS ORDERED: VANCOMYCIN 1 GM in D5W (PRE-DOCKED) 1,000 MG/250 ML IVPB ONE (07:29)
[2022-08-19] MEDS ORDERED: PIPERACILLIN/TAZOB 4.5 GM 4.5 GM in DEXTROSE 5%-WATER 100 ML IVPB ONE (07:29)
[2022-08-19] MEDS ORDERED: SODIUM CHLORIDE 1,000 ML IV SCH (08:45)
[2022-08-19 08:52] LABS: ANISOCYTOSIS 0; HELMET CELLS 0; HOWELL-JOLLY BODIES 0; MACROCYTOSIS 0; OVALOCYTE 0; ROULEAU 0; SICKELED CELLS 0; TARGET CELLS 0; TEAR DROP CELLS 0; TOXIC GRANULATION 0
[2022-08-19] MEDS ORDERED: AZITHROMYCIN IVPB 500 MG/250 ML BAG IVPB ONE (09:38)
[2022-08-19] MEDS ORDERED: VANCOMYCIN/WATER FOR INJ (PEG) 1,000 MG/200 ML BAG IVPB ONE (09:38)
[2022-08-19] MEDS ORDERED: PIPERACILLIN/TAZOB 3.375 GM 3.375 GM/50 ML BAG IVPB ONE ×2 (09:47→16:54)
[2022-08-19] MEDS ORDERED: BUDESONIDE/FORMETEROL FUMARATE 80/4.5 mcg INHALER IH SCH (10:00)
[2022-08-19] MEDS ORDERED: PATIENT'S OWN MEDICATION (NON-FORMULARY) (Omeprazole 20 MG Capsule.Dr) GT SCH (10:00)
[2022-08-19] MEDS ORDERED: PIPERACILLIN/TAZOB 3.375 GM 3.375 GM in DEXTROSE 5%-WATER - 50 ML IVPB SCH (10:00)
[2022-08-19] MEDS: BACITRACIN ZINC 15 GM TUBE TOPICAL OINTMENT TP SCH (10:44)
[2022-08-19] MEDS: FAMOTIDINE 40 MG/5 ML ORAL SUSPENSION GT SCH ×2 (10:45→22:12)
[2022-08-19] MEDS: DOCUSATE NA 100 MG/10 ML UNIT-DOSE CUPS GT SCH ×2 (10:45→22:11)
[2022-08-19] MEDS: CALCIUM 500MG/VIT-D 200 UNITS COMBO TABLET (FP) GT SCH ×2 (10:45→22:11)
[2022-08-19] MEDS: COD LIVER OIL/ZINC OXIDE PASTE 56 GM TUBE TP SCH ×4 (10:45→22:11)
[2022-08-19] MEDS ORDERED: VANCOMYCIN/WATER FOR INJ (PEG) 750 MG/150 ML BAG IVPB SCH (11:00)
[2022-08-19 11:54] LABS: CALCIUM 8.8 mg/dL (8.5-10.1)
[2022-08-19 11:56] LABS: BLOOD UREA NITROGEN 18.7 mg/dL (7-18)
[2022-08-19 11:59] LABS: CREATININE 0.3 mg/dL (0.55-1.3)
[2022-08-19] MEDS ORDERED: ALBUTEROL SO4 2.5/IPRATROPIUM 0.5 INH SOL 3 ML VIAL.NEB. NEB SCH (12:00)
[2022-08-19] MEDS ORDERED: methylPREDNISolone NA SUCC 40 MG/1 ML VIAL ONE (15:55)
[2022-08-19] MEDS: methylPREDNISolone NA SUCC 40 MG/1 ML VIAL IVPUSH SCH (16:00)
[2022-08-19] MEDS ORDERED: ALBUTEROL SO4 2.5/IPRATROPIUM 0.5 INH SOL 3 ML VIAL.NEB. NEB ONE ×2 (16:53→22:12)
[2022-08-19] MEDS ORDERED: POLYETHYLENE GLYCOL (HEALTHYLAX) 3350 17 GM PACKET ONE (16:53)
[2022-08-19] MEDS: POLYETHYLENE GLYCOL (HEALTHYLAX) 3350 17 GM PACKET GT SCH (17:09)
[2022-08-19] MEDS: PIPERACILLIN/TAZOB 3.375 GM 3.375 GM in DEXTROSE 5%-WATER - 50 ML IVPB SCH (17:36)
[2022-08-19] MEDS ORDERED: PHENobarbital 20 MG/5 ML UNIT-DOSE CUP PEG SCH (22:00)
[2022-08-19] MEDS ORDERED: PHENobarbital 20 MG/5 ML UNIT-DOSE CUP ONE (22:04)
[2022-08-19] MEDS ORDERED: MONTELUKAST NA 10 MG TABLET ONE (22:04)
[2022-08-19] MEDS: MONTELUKAST NA 10 MG TABLET PEG SCH (22:12)
[2022-08-20] MEDS: PIPERACILLIN/TAZOB 3.375 GM 3.375 GM in DEXTROSE 5%-WATER - 50 ML IVPB SCH ×3 (02:33→18:41)
[2022-08-20] MEDS: LEVOTHYROXINE NA 25 MCG TABLET (FP) GT SCH (06:01)
[2022-08-20] MEDS: POLYETHYLENE GLYCOL (HEALTHYLAX) 3350 17 GM PACKET GT SCH ×2 (06:01→16:41)
[2022-08-20] MEDS: methylPREDNISolone NA SUCC 40 MG/1 ML VIAL IVPUSH SCH ×2 (06:01→16:41)
[2022-08-20 06:53] LABS: BASO % 0.1 % (0-2.0); EOS % 1.1 % (0-4.5); HEMOGLOBIN 12.1 GM/dL (10.7-15.3); LYMPH % 9.1 % (8-40); MCH 26.6 pg (25.7-33.7); MCHC 31.7 g/dl (32.0-36.0); MEAN CELL VOLUME 83.9 fl (80-96); MEAN PLT VOLUME 8.6 fl (7.5-11.1); MONO % 7.9 % (3.8-10.2); NEUT % 81.8 % (42.8-82.8); PLATELET COUNT 283 10^3/uL (134-434); RBC 4.53 M/mm3 (3.60-5.2); RDW 14.7 % (11.6-15.6); WHITE BLOOD COUNT 18.1 K/mm3 (4.0-10.0)
[2022-08-20] MEDS ORDERED: MAGNESIUM HYDROX 2400MG/30ML ORAL SUSPENSION 30 ML CUP PO PRN (07:30)
[2022-08-20] MEDS ORDERED: ALBUTEROL SO4 2.5/IPRATROPIUM 0.5 INH SOL 3 ML VIAL.NEB. NEB PRN (07:30)
[2022-08-20] MEDS ORDERED: ACETAMINOPHEN 650 MG/20.3 ML ORAL SOLUTION (CUPS) GT PRN (07:30)
[2022-08-20] MEDS ORDERED: BISACODYL 10 MG SUPP.RECT RC PRN (07:30)
[2022-08-20] MEDS ORDERED: BISACODYL 10 MG SUPP.RECT RC ONE (07:34)
[2022-08-20] MEDS ORDERED: MAGNESIUM HYDROX 2400MG/30ML ORAL SUSPENSION 30 ML CUP GT PRN (07:39)
[2022-08-20] MEDS: ALBUTEROL SO4 2.5/IPRATROPIUM 0.5 INH SOL 3 ML VIAL.NEB. NEB SCH ×4 (08:18→20:20)
[2022-08-20 09:01] LABS: CALCIUM 8.8 mg/dL (8.5-10.1)
[2022-08-20 09:03] LABS: BLOOD UREA NITROGEN 14.2 mg/dL (7-18)
[2022-08-20 09:05] LABS: CREATININE 0.4 mg/dL (0.55-1.3)
[2022-08-20] MEDS: DOCUSATE NA 100 MG/10 ML UNIT-DOSE CUPS GT SCH ×2 (09:31→22:07)
[2022-08-20] MEDS: CALCIUM 500MG/VIT-D 200 UNITS COMBO TABLET (FP) GT SCH ×2 (09:31→22:07)
[2022-08-20] MEDS: FAMOTIDINE 40 MG/5 ML ORAL SUSPENSION GT SCH ×2 (09:34→22:08)
[2022-08-20] MEDS: BACITRACIN ZINC 15 GM TUBE TOPICAL OINTMENT TP SCH (11:42)
[2022-08-20] MEDS: COD LIVER OIL/ZINC OXIDE PASTE 56 GM TUBE TP SCH ×4 (11:42→22:08)
[2022-08-20] MEDS ORDERED: ENOXAPARIN NA (PORCINE) 40 MG/0.4 ML DISP.SYRIN SQ ONE (14:41)
[2022-08-20] MEDS: ACETAMINOPHEN 650 MG/20.3 ML ORAL SOLUTION (CUPS) GT PRN (17:03)
[2022-08-20] MEDS ORDERED: PHENobarbital 30 MG TABLET GT SCH (22:00)
[2022-08-20] MEDS: PHENobarbital 20 MG/5 ML UNIT-DOSE CUP PEG SCH (22:07)
[2022-08-20] MEDS: MONTELUKAST NA 10 MG TABLET PEG SCH (22:07)
[2022-08-20] MEDS: BACLOFEN 10 MG TABLET (FP) GT SCH (22:07)
[2022-08-21] MEDS: PIPERACILLIN/TAZOB 3.375 GM 3.375 GM in DEXTROSE 5%-WATER - 50 ML IVPB SCH ×3 (00:59→17:45)
[2022-08-21] MEDS: methylPREDNISolone NA SUCC 40 MG/1 ML VIAL IVPUSH SCH ×2 (06:06→17:46)
[2022-08-21] MEDS: LEVOTHYROXINE NA 25 MCG TABLET (FP) GT SCH (06:06)
[2022-08-21] MEDS: POLYETHYLENE GLYCOL (HEALTHYLAX) 3350 17 GM PACKET GT SCH ×2 (06:06→17:46)
[2022-08-21 07:19] LABS: BASO % 0.1 % (0-2.0); EOS % 1.3 % (0-4.5); HEMATOCRIT 34.4 % (32.4-45.2); LYMPH % 18.6 % (8-40); MCH 26.2 pg (25.7-33.7); MEAN CELL VOLUME 81.8 fl (80-96); MEAN PLT VOLUME 8.7 fl (7.5-11.1); MONO % 8.2 % (3.8-10.2); NEUT % 71.8 % (42.8-82.8); PLATELET COUNT 260 10^3/uL (134-434); RBC 4.21 M/mm3 (3.60-5.2); RDW 14.5 % (11.6-15.6); WHITE BLOOD COUNT 12.9 K/mm3 (4.0-10.0)
[2022-08-21] MEDS: ALBUTEROL SO4 2.5/IPRATROPIUM 0.5 INH SOL 3 ML VIAL.NEB. NEB SCH ×4 (07:30→20:53)
[2022-08-21 07:48] LABS: CALCIUM 8.2 mg/dL (8.5-10.1)
[2022-08-21 07:50] LABS: BLOOD UREA NITROGEN 13.4 mg/dL (7-18); MAGNESIUM 2.1 mg/dL (1.8-2.4)
[2022-08-21 07:52] LABS: CREATININE 0.2 mg/dL (0.55-1.3); PHOSPHOROUS 2.7 mg/dL (2.5-4.9)
[2022-08-21 07:59] LABS: ALBUMIN 2.6 g/dl (3.4-5.0); TOT PROT 5.6 g/dl (6.4-8.2)
[2022-08-21 08:31] LABS: BILIRUBIN,TOTAL 0.2 mg/dL (0.2-1)
[2022-08-21] MEDS: ENOXAPARIN NA (PORCINE) 40 MG/0.4 ML DISP.SYRIN SQ SCH (10:16)
[2022-08-21] MEDS: BACITRACIN ZINC 15 GM TUBE TOPICAL OINTMENT TP SCH (10:18)
[2022-08-21] MEDS: COD LIVER OIL/ZINC OXIDE PASTE 56 GM TUBE TP SCH ×4 (10:18→22:14)
[2022-08-21] MEDS: DOCUSATE NA 100 MG/10 ML UNIT-DOSE CUPS GT SCH ×2 (10:18→22:14)
[2022-08-21] MEDS: BACLOFEN 10 MG TABLET (FP) GT SCH ×2 (10:18→22:15)
[2022-08-21] MEDS: CALCIUM 500MG/VIT-D 200 UNITS COMBO TABLET (FP) GT SCH ×2 (10:18→22:15)
[2022-08-21] MEDS: FAMOTIDINE 40 MG/5 ML ORAL SUSPENSION GT SCH ×2 (10:19→22:15)
[2022-08-21] MEDS: ACETAMINOPHEN 650 MG/20.3 ML ORAL SOLUTION (CUPS) GT PRN (17:47)
[2022-08-21] MEDS: PHENobarbital 20 MG/5 ML UNIT-DOSE CUP PEG SCH (22:15)
[2022-08-21] MEDS: MONTELUKAST NA 10 MG TABLET PEG SCH (22:15)
[2022-08-22] MEDS: PIPERACILLIN/TAZOB 3.375 GM 3.375 GM in DEXTROSE 5%-WATER - 50 ML IVPB SCH ×3 (00:59→18:14)
[2022-08-22] MEDS: LEVOTHYROXINE NA 25 MCG TABLET (FP) GT SCH (05:00)
[2022-08-22] MEDS: methylPREDNISolone NA SUCC 40 MG/1 ML VIAL IVPUSH SCH (06:36)
[2022-08-22] MEDS: POLYETHYLENE GLYCOL (HEALTHYLAX) 3350 17 GM PACKET GT SCH ×2 (06:36→15:48)
[2022-08-22 06:41] LABS: BASO % 0.3 % (0-2.0); EOS % 0.8 % (0-4.5); HEMATOCRIT 38.4 % (32.4-45.2); HEMOGLOBIN 12.2 GM/dL (10.7-15.3); LYMPH % 20.2 % (8-40); MCH 26.6 pg (25.7-33.7); MCHC 31.9 g/dl (32.0-36.0); MEAN CELL VOLUME 83.5 fl (80-96); MEAN PLT VOLUME 8.5 fl (7.5-11.1); MONO % 7.7 % (3.8-10.2); PLATELET COUNT 317 10^3/uL (134-434); RBC 4.59 M/mm3 (3.60-5.2); RDW 14.5 % (11.6-15.6); WHITE BLOOD COUNT 11.4 K/mm3 (4.0-10.0)
[2022-08-22 07:06] LABS: ALBUMIN 2.8 g/dl (3.4-5.0); BLOOD UREA NITROGEN 10.4 mg/dL (7-18); PHOSPHOROUS 3.2 mg/dL (2.5-4.9)
[2022-08-22 07:08] LABS: BILIRUBIN,TOTAL 0.2 mg/dL (0.2-1); CALCIUM 8.9 mg/dL (8.5-10.1); TOT PROT 6.2 g/dl (6.4-8.2)
[2022-08-22 07:09] LABS: CREATININE 0.4 mg/dL (0.55-1.3); MAGNESIUM 2.1 mg/dL (1.8-2.4)
[2022-08-22] MEDS: ALBUTEROL SO4 2.5/IPRATROPIUM 0.5 INH SOL 3 ML VIAL.NEB. NEB SCH ×4 (08:04→20:20)
[2022-08-22] MEDS: DOCUSATE NA 100 MG/10 ML UNIT-DOSE CUPS GT SCH ×2 (11:34→22:16)
[2022-08-22] MEDS: BACITRACIN ZINC 15 GM TUBE TOPICAL OINTMENT TP SCH (11:34)
[2022-08-22] MEDS: COD LIVER OIL/ZINC OXIDE PASTE 56 GM TUBE TP SCH ×4 (11:34→22:17)
[2022-08-22] MEDS: BACLOFEN 10 MG TABLET (FP) GT SCH ×2 (11:34→22:17)
[2022-08-22] MEDS: CALCIUM 500MG/VIT-D 200 UNITS COMBO TABLET (FP) GT SCH ×2 (11:35→22:16)
[2022-08-22] MEDS: ENOXAPARIN NA (PORCINE) 40 MG/0.4 ML DISP.SYRIN SQ SCH (11:35)
[2022-08-22] MEDS: FAMOTIDINE 40 MG/5 ML ORAL SUSPENSION GT SCH ×2 (11:35→22:17)
[2022-08-22] MEDS: ACETAMINOPHEN 650 MG/20.3 ML ORAL SOLUTION (CUPS) GT PRN (13:30)
[2022-08-22] MEDS: MONTELUKAST NA 10 MG TABLET PEG SCH (22:16)
[2022-08-22] MEDS: PHENobarbital 20 MG/5 ML UNIT-DOSE CUP PEG SCH (22:18)
[2022-08-23] MEDS: PIPERACILLIN/TAZOB 3.375 GM 3.375 GM in DEXTROSE 5%-WATER - 50 ML IVPB SCH ×2 (01:49→10:32)
[2022-08-23] MEDS: POLYETHYLENE GLYCOL (HEALTHYLAX) 3350 17 GM PACKET GT SCH ×2 (06:03→17:02)
[2022-08-23] MEDS: LEVOTHYROXINE NA 25 MCG TABLET (FP) GT SCH (06:03)
[2022-08-23 06:32] LABS: BASO % 0.6 % (0-2.0); EOS % 3.9 % (0-4.5); HEMATOCRIT 38.6 % (32.4-45.2); HEMOGLOBIN 12.4 GM/dL (10.7-15.3); LYMPH % 32.6 % (8-40); MCH 26.8 pg (25.7-33.7); MCHC 32.2 g/dl (32.0-36.0); MEAN CELL VOLUME 83.1 fl (80-96); MEAN PLT VOLUME 8.3 fl (7.5-11.1); MONO % 9.3 % (3.8-10.2); NEUT % 53.6 % (42.8-82.8); PLATELET COUNT 319 10^3/uL (134-434); RBC 4.64 M/mm3 (3.60-5.2); RDW 14.3 % (11.6-15.6)
[2022-08-23 06:54] LABS: CALCIUM 9.3 mg/dL (8.5-10.1)
[2022-08-23 06:55] LABS: ALBUMIN 2.7 g/dl (3.4-5.0); BLOOD UREA NITROGEN 13.4 mg/dL (7-18); MAGNESIUM 2.2 mg/dL (1.8-2.4)
[2022-08-23 06:57] LABS: CREATININE 0.4 mg/dL (0.55-1.3)
[2022-08-23 06:58] LABS: PHOSPHOROUS 3.3 mg/dL (2.5-4.9)
[2022-08-23 06:59] LABS: BILIRUBIN,TOTAL 0.2 mg/dL (0.2-1); TOT PROT 6.1 g/dl (6.4-8.2)
[2022-08-23] MEDS: ALBUTEROL SO4 2.5/IPRATROPIUM 0.5 INH SOL 3 ML VIAL.NEB. NEB SCH ×4 (07:54→21:16)
[2022-08-23] MEDS ORDERED: methylPREDNISolone NA SUCC 40 MG/1 ML VIAL IVPUSH SCH (10:00)
[2022-08-23] MEDS: BACLOFEN 10 MG TABLET (FP) GT SCH ×2 (10:31→22:34)
[2022-08-23] MEDS: ENOXAPARIN NA (PORCINE) 40 MG/0.4 ML DISP.SYRIN SQ SCH (10:31)
[2022-08-23] MEDS: DOCUSATE NA 100 MG/10 ML UNIT-DOSE CUPS GT SCH ×2 (10:31→22:35)
[2022-08-23] MEDS: FAMOTIDINE 40 MG/5 ML ORAL SUSPENSION GT SCH ×2 (10:31→22:34)
[2022-08-23] MEDS: CALCIUM 500MG/VIT-D 200 UNITS COMBO TABLET (FP) GT SCH ×2 (10:31→22:34)
[2022-08-23] MEDS: BACITRACIN ZINC 15 GM TUBE TOPICAL OINTMENT TP SCH (10:32)
[2022-08-23] MEDS: COD LIVER OIL/ZINC OXIDE PASTE 56 GM TUBE TP SCH ×4 (10:33→22:35)
[2022-08-23] MEDS ORDERED: VANCOMYCIN/WATER 1250 MG 1,250 MG/250 ML BAG IVPB SCH (11:30)
[2022-08-23] MEDS: VANCOMYCIN/WATER FOR INJ (PEG) 750 MG/150 ML BAG IVPB SCH (14:32)
[2022-08-23] MEDS: AMOX TR/POTASSIUM CLAVULANATE 600 MG/5 ML PO SCH (17:21)
[2022-08-23] MEDS: PHENobarbital 20 MG/5 ML UNIT-DOSE CUP PEG SCH (22:32)
[2022-08-23] MEDS: ACETAMINOPHEN 650 MG/20.3 ML ORAL SOLUTION (CUPS) GT PRN (22:33)
[2022-08-23] MEDS: MONTELUKAST NA 10 MG TABLET PEG SCH (22:35)
[2022-08-24] MEDS: LEVOTHYROXINE NA 25 MCG TABLET (FP) GT SCH (06:07)
[2022-08-24] MEDS: POLYETHYLENE GLYCOL (HEALTHYLAX) 3350 17 GM PACKET GT SCH ×2 (06:07→16:39)
[2022-08-24] MEDS: ACETAMINOPHEN 650 MG/20.3 ML ORAL SOLUTION (CUPS) GT PRN ×2 (07:58→21:57)
[2022-08-24] MEDS: AMOX TR/POTASSIUM CLAVULANATE 600 MG/5 ML PO SCH ×2 (07:59→16:39)
[2022-08-24] MEDS: ALBUTEROL SO4 2.5/IPRATROPIUM 0.5 INH SOL 3 ML VIAL.NEB. NEB SCH ×4 (08:16→20:10)
[2022-08-24 08:53] LABS: BASO % 0.3 % (0-2.0); HEMATOCRIT 41.3 % (32.4-45.2); HEMOGLOBIN 13.3 GM/dL (10.7-15.3); LYMPH % 19.6 % (8-40); MCH 26.9 pg (25.7-33.7); MCHC 32.3 g/dl (32.0-36.0); MEAN CELL VOLUME 83.4 fl (80-96); MEAN PLT VOLUME 8.4 fl (7.5-11.1); MONO % 9.1 % (3.8-10.2); PLATELET COUNT 351 10^3/uL (134-434); RBC 4.95 M/mm3 (3.60-5.2); RDW 14.3 % (11.6-15.6)
[2022-08-24 09:23] LABS: CALCIUM 9.3 mg/dL (8.5-10.1)
[2022-08-24 09:24] LABS: ALBUMIN 2.9 g/dl (3.4-5.0); BLOOD UREA NITROGEN 11.6 mg/dL (7-18); MAGNESIUM 2.1 mg/dL (1.8-2.4)
[2022-08-24 09:25] LABS: BILIRUBIN,TOTAL 0.2 mg/dL (0.2-1); TOT PROT 6.3 g/dl (6.4-8.2)
[2022-08-24 09:27] LABS: CREATININE 0.3 mg/dL (0.55-1.3); PHOSPHOROUS 3.3 mg/dL (2.5-4.9)
[2022-08-24] MEDS ORDERED: predniSONE 10 MG TABLET (UD) PEG SCH (10:00)
[2022-08-24] MEDS: FAMOTIDINE 40 MG/5 ML ORAL SUSPENSION GT SCH ×2 (10:49→21:56)
[2022-08-24] MEDS: predniSONE 20 MG TABLET (UD) PEG SCH (10:49)
[2022-08-24] MEDS: CALCIUM 500MG/VIT-D 200 UNITS COMBO TABLET (FP) GT SCH ×2 (10:49→21:56)
[2022-08-24] MEDS: BACLOFEN 10 MG TABLET (FP) GT SCH ×2 (10:49→21:56)
[2022-08-24] MEDS: BACITRACIN ZINC 15 GM TUBE TOPICAL OINTMENT TP SCH (10:50)
[2022-08-24] MEDS: ENOXAPARIN NA (PORCINE) 40 MG/0.4 ML DISP.SYRIN SQ SCH (10:50)
[2022-08-24] MEDS: DOCUSATE NA 100 MG/10 ML UNIT-DOSE CUPS GT SCH ×2 (10:51→21:57)
[2022-08-24] MEDS: COD LIVER OIL/ZINC OXIDE PASTE 56 GM TUBE TP SCH ×4 (10:51→21:57)
[2022-08-24] MEDS: VANCOMYCIN/WATER FOR INJ (PEG) 750 MG/150 ML BAG IVPB SCH (13:57)
[2022-08-24] MEDS: PHENobarbital 20 MG/5 ML UNIT-DOSE CUP PEG SCH (21:54)
[2022-08-24] MEDS: MONTELUKAST NA 10 MG TABLET PEG SCH (21:56)
[2022-08-25] MEDS: LEVOTHYROXINE NA 25 MCG TABLET (FP) GT SCH (04:14)
[2022-08-25] MEDS: POLYETHYLENE GLYCOL (HEALTHYLAX) 3350 17 GM PACKET GT SCH ×2 (06:23→16:40)
[2022-08-25] MEDS: ALBUTEROL SO4 2.5/IPRATROPIUM 0.5 INH SOL 3 ML VIAL.NEB. NEB SCH ×4 (07:52→20:22)
[2022-08-25] MEDS: AMOX TR/POTASSIUM CLAVULANATE 600 MG/5 ML PO SCH ×2 (08:35→17:07)
[2022-08-25] MEDS: AMINO ACIDS/PROTEIN HYDROLYS 30 ML LIQUID.PKT PEG SCH (08:35)
[2022-08-25] MEDS: ENOXAPARIN NA (PORCINE) 40 MG/0.4 ML DISP.SYRIN SQ SCH (09:47)
[2022-08-25] MEDS: predniSONE 20 MG TABLET (UD) PEG SCH (09:47)
[2022-08-25] MEDS: DOCUSATE NA 100 MG/10 ML UNIT-DOSE CUPS GT SCH ×2 (09:47→22:26)
[2022-08-25] MEDS: COD LIVER OIL/ZINC OXIDE PASTE 56 GM TUBE TP SCH ×4 (09:47→22:28)
[2022-08-25] MEDS: BACITRACIN ZINC 15 GM TUBE TOPICAL OINTMENT TP SCH (09:47)
[2022-08-25] MEDS: BACLOFEN 10 MG TABLET (FP) GT SCH ×2 (09:47→22:26)
[2022-08-25] MEDS: FAMOTIDINE 40 MG/5 ML ORAL SUSPENSION GT SCH ×2 (09:47→22:27)
[2022-08-25] MEDS: CALCIUM 500MG/VIT-D 200 UNITS COMBO TABLET (FP) GT SCH ×2 (09:48→22:26)
[2022-08-25 10:36] LABS: BASO % 0.4 % (0-2.0); EOS % 3.7 % (0-4.5); HEMATOCRIT 39.1 % (32.4-45.2); HEMOGLOBIN 12.7 GM/dL (10.7-15.3); LYMPH % 22.5 % (8-40); MCH 26.8 pg (25.7-33.7); MCHC 32.5 g/dl (32.0-36.0); MEAN CELL VOLUME 82.4 fl (80-96); MEAN PLT VOLUME 8.4 fl (7.5-11.1); MONO % 8.5 % (3.8-10.2); NEUT % 64.9 % (42.8-82.8); PLATELET COUNT 359 10^3/uL (134-434); RBC 4.74 M/mm3 (3.60-5.2); RDW 14.8 % (11.6-15.6); WHITE BLOOD COUNT 8.5 K/mm3 (4.0-10.0)
[2022-08-25 10:55] LABS: ALBUMIN 2.9 g/dl (3.4-5.0); CALCIUM 9.1 mg/dL (8.5-10.1)
[2022-08-25 10:56] LABS: BLOOD UREA NITROGEN 12.4 mg/dL (7-18)
[2022-08-25 10:58] LABS: CREATININE 0.3 mg/dL (0.55-1.3)
[2022-08-25 11:00] LABS: BILIRUBIN,TOTAL 0.1 mg/dL (0.2-1); TOT PROT 6.6 g/dl (6.4-8.2)
[2022-08-25] MEDS: VANCOMYCIN/WATER FOR INJ (PEG) 750 MG/150 ML BAG IVPB SCH (13:06)
[2022-08-25] MEDS: MINERAL OIL/PET HY-PHL TOPICAL OINTMENT 454 GM JAR TP SCH (14:36)
[2022-08-25] MEDS: ACETAMINOPHEN 650 MG/20.3 ML ORAL SOLUTION (CUPS) GT PRN (18:34)
[2022-08-25] MEDS: PHENobarbital 20 MG/5 ML UNIT-DOSE CUP PEG SCH (22:26)
[2022-08-25] MEDS: MONTELUKAST NA 10 MG TABLET PEG SCH (22:26)
[2022-08-26] MEDS: ACETAMINOPHEN 650 MG/20.3 ML ORAL SOLUTION (CUPS) GT PRN ×2 (01:01→22:45)
[2022-08-26] MEDS: LEVOTHYROXINE NA 25 MCG TABLET (FP) GT SCH (06:00)
[2022-08-26] MEDS: POLYETHYLENE GLYCOL (HEALTHYLAX) 3350 17 GM PACKET GT SCH ×2 (06:01→17:23)
[2022-08-26] MEDS: ALBUTEROL SO4 2.5/IPRATROPIUM 0.5 INH SOL 3 ML VIAL.NEB. NEB SCH ×4 (07:20→20:06)
[2022-08-26] MEDS: AMINO ACIDS/PROTEIN HYDROLYS 30 ML LIQUID.PKT PEG SCH (08:35)
[2022-08-26] MEDS: AMOX TR/POTASSIUM CLAVULANATE 600 MG/5 ML PO SCH ×2 (08:35→17:24)
[2022-08-26] MEDS: MINERAL OIL/PET HY-PHL TOPICAL OINTMENT 454 GM JAR TP SCH (09:30)
[2022-08-26] MEDS: predniSONE 20 MG TABLET (UD) PEG SCH (09:32)
[2022-08-26] MEDS: BACLOFEN 10 MG TABLET (FP) GT SCH ×2 (09:32→22:44)
[2022-08-26] MEDS: BACITRACIN ZINC 15 GM TUBE TOPICAL OINTMENT TP SCH (09:32)
[2022-08-26] MEDS: ENOXAPARIN NA (PORCINE) 40 MG/0.4 ML DISP.SYRIN SQ SCH (09:32)
[2022-08-26] MEDS: DOCUSATE NA 100 MG/10 ML UNIT-DOSE CUPS GT SCH ×2 (09:32→23:09)
[2022-08-26] MEDS: CALCIUM 500MG/VIT-D 200 UNITS COMBO TABLET (FP) GT SCH ×2 (09:32→22:44)
[2022-08-26] MEDS: COD LIVER OIL/ZINC OXIDE PASTE 56 GM TUBE TP SCH ×4 (09:33→23:09)
[2022-08-26] MEDS: FAMOTIDINE 40 MG/5 ML ORAL SUSPENSION GT SCH ×2 (09:36→22:44)
[2022-08-26 12:59] LABS: BASO % 0.2 % (0-2.0); EOS % 1.2 % (0-4.5); HEMATOCRIT 43.8 % (32.4-45.2); HEMOGLOBIN 13.8 GM/dL (10.7-15.3); LYMPH % 11.1 % (8-40); MCH 25.7 pg (25.7-33.7); MCHC 31.6 g/dl (32.0-36.0); MEAN CELL VOLUME 81.4 fl (80-96); MEAN PLT VOLUME 8.5 fl (7.5-11.1); MONO % 4.8 % (3.8-10.2); NEUT % 82.7 % (42.8-82.8); PLATELET COUNT 391 10^3/uL (134-434); RBC 5.38 M/mm3 (3.60-5.2); RDW 14.7 % (11.6-15.6)
[2022-08-26 13:52] LABS: BLOOD UREA NITROGEN 14.1 mg/dL (7-18)
[2022-08-26 13:55] LABS: CREATININE 0.4 mg/dL (0.55-1.3)
[2022-08-26 13:57] LABS: BILIRUBIN,TOTAL 0.2 mg/dL (0.2-1); TOT PROT 7.5 g/dl (6.4-8.2)
[2022-08-26 14:02] LABS: MAGNESIUM 2.2 mg/dL (1.8-2.4)
[2022-08-26 14:06] LABS: ALBUMIN 3.5 g/dl (3.4-5.0)
[2022-08-26] MEDS: VANCOMYCIN/WATER FOR INJ (PEG) 750 MG/150 ML BAG IVPB SCH (17:12)
[2022-08-26] MEDS: MONTELUKAST NA 10 MG TABLET PEG SCH (22:44)
[2022-08-26] MEDS: PHENobarbital 20 MG/5 ML UNIT-DOSE CUP PEG SCH (22:45)
[2022-08-27] MEDS: LEVOTHYROXINE NA 25 MCG TABLET (FP) GT SCH (06:15)
[2022-08-27] MEDS: POLYETHYLENE GLYCOL (HEALTHYLAX) 3350 17 GM PACKET GT SCH ×2 (06:35→16:04)
[2022-08-27] MEDS: ALBUTEROL SO4 2.5/IPRATROPIUM 0.5 INH SOL 3 ML VIAL.NEB. NEB SCH ×4 (08:15→19:37)
[2022-08-27 08:34] LABS: BASO % 0.6 % (0-2.0); EOS % 4.9 % (0-4.5); HEMATOCRIT 42.4 % (32.4-45.2); LYMPH % 27.4 % (8-40); MCH 27.2 pg (25.7-33.7); MCHC 33.1 g/dl (32.0-36.0); MEAN CELL VOLUME 82.3 fl (80-96); MEAN PLT VOLUME 8.3 fl (7.5-11.1); MONO % 9.3 % (3.8-10.2); NEUT % 57.8 % (42.8-82.8); PLATELET COUNT 375 10^3/uL (134-434); RBC 5.15 M/mm3 (3.60-5.2); RDW 14.7 % (11.6-15.6); WHITE BLOOD COUNT 7.6 K/mm3 (4.0-10.0)
[2022-08-27] MEDS: AMINO ACIDS/PROTEIN HYDROLYS 30 ML LIQUID.PKT PEG SCH (08:55)
[2022-08-27] MEDS: AMOX TR/POTASSIUM CLAVULANATE 600 MG/5 ML PO SCH ×2 (08:55→17:00)
[2022-08-27 08:56] LABS: ALBUMIN 3.3 g/dl (3.4-5.0); BLOOD UREA NITROGEN 14.8 mg/dL (7-18); CALCIUM 9.8 mg/dL (8.5-10.1); MAGNESIUM 2.2 mg/dL (1.8-2.4)
[2022-08-27 08:59] LABS: CREATININE 0.4 mg/dL (0.55-1.3)
[2022-08-27 09:01] LABS: BILIRUBIN,TOTAL 0.2 mg/dL (0.2-1); TOT PROT 7.2 g/dl (6.4-8.2)
[2022-08-27] MEDS: BACITRACIN ZINC 15 GM TUBE TOPICAL OINTMENT TP SCH (09:44)
[2022-08-27] MEDS: DOCUSATE NA 100 MG/10 ML UNIT-DOSE CUPS GT SCH ×2 (09:45→21:01)
[2022-08-27] MEDS: ENOXAPARIN NA (PORCINE) 40 MG/0.4 ML DISP.SYRIN SQ SCH (09:45)
[2022-08-27] MEDS: BACLOFEN 10 MG TABLET (FP) GT SCH ×2 (09:45→21:02)
[2022-08-27] MEDS: MINERAL OIL/PET HY-PHL TOPICAL OINTMENT 454 GM JAR TP SCH (09:45)
[2022-08-27] MEDS: predniSONE 20 MG TABLET (UD) PEG SCH (09:46)
[2022-08-27] MEDS: COD LIVER OIL/ZINC OXIDE PASTE 56 GM TUBE TP SCH ×4 (09:46→21:03)
[2022-08-27] MEDS: CALCIUM 500MG/VIT-D 200 UNITS COMBO TABLET (FP) GT SCH ×2 (09:46→21:02)
[2022-08-27] MEDS: FAMOTIDINE 40 MG/5 ML ORAL SUSPENSION GT SCH ×2 (09:46→21:02)
[2022-08-27] MEDS: VANCOMYCIN/WATER FOR INJ (PEG) 750 MG/150 ML BAG IVPB SCH (14:03)
[2022-08-27] MEDS: PHENobarbital 20 MG/5 ML UNIT-DOSE CUP PEG SCH (21:02)
[2022-08-27] MEDS: MONTELUKAST NA 10 MG TABLET PEG SCH (21:03)
[2022-08-28] MEDS: LEVOTHYROXINE NA 25 MCG TABLET (FP) GT SCH (05:06)
[2022-08-28] MEDS: POLYETHYLENE GLYCOL (HEALTHYLAX) 3350 17 GM PACKET GT SCH ×2 (06:20→17:50)
[2022-08-28] MEDS: ALBUTEROL SO4 2.5/IPRATROPIUM 0.5 INH SOL 3 ML VIAL.NEB. NEB SCH ×4 (07:43→20:33)
[2022-08-28 08:51] LABS: ALBUMIN 2.9 g/dl (3.4-5.0); BLOOD UREA NITROGEN 12.1 mg/dL (7-18); CALCIUM 8.8 mg/dL (8.5-10.1)
[2022-08-28 08:54] LABS: CREATININE 0.3 mg/dL (0.55-1.3)
[2022-08-28 08:55] LABS: BILIRUBIN,TOTAL 0.2 mg/dL (0.2-1)
[2022-08-28 08:56] LABS: TOT PROT 6.5 g/dl (6.4-8.2)
[2022-08-28] MEDS: AMINO ACIDS/PROTEIN HYDROLYS 30 ML LIQUID.PKT PEG SCH (09:00)
[2022-08-28] MEDS: AMOX TR/POTASSIUM CLAVULANATE 600 MG/5 ML PO SCH ×2 (09:00→17:49)
[2022-08-28] MEDS: BACITRACIN ZINC 15 GM TUBE TOPICAL OINTMENT TP SCH (09:20)
[2022-08-28] MEDS: MINERAL OIL/PET HY-PHL TOPICAL OINTMENT 454 GM JAR TP SCH (09:20)
[2022-08-28] MEDS: predniSONE 20 MG TABLET (UD) PEG SCH (09:20)
[2022-08-28] MEDS: COD LIVER OIL/ZINC OXIDE PASTE 56 GM TUBE TP SCH ×4 (09:20→21:29)
[2022-08-28] MEDS: BACLOFEN 10 MG TABLET (FP) GT SCH ×2 (09:20→21:29)
[2022-08-28] MEDS: DOCUSATE NA 100 MG/10 ML UNIT-DOSE CUPS GT SCH ×2 (09:20→21:30)
[2022-08-28] MEDS: ENOXAPARIN NA (PORCINE) 40 MG/0.4 ML DISP.SYRIN SQ SCH (09:21)
[2022-08-28] MEDS: CALCIUM 500MG/VIT-D 200 UNITS COMBO TABLET (FP) GT SCH ×2 (09:21→21:29)
[2022-08-28] MEDS: FAMOTIDINE 40 MG/5 ML ORAL SUSPENSION GT SCH ×2 (09:21→21:30)
[2022-08-28] MEDS: ACETAMINOPHEN 650 MG/20.3 ML ORAL SOLUTION (CUPS) GT PRN ×2 (13:56→21:30)
[2022-08-28] MEDS: VANCOMYCIN/WATER FOR INJ (PEG) 750 MG/150 ML BAG IVPB SCH (13:56)
[2022-08-28] MEDS: PHENobarbital 20 MG/5 ML UNIT-DOSE CUP PEG SCH (21:25)
[2022-08-28] MEDS: MONTELUKAST NA 10 MG TABLET PEG SCH (21:29)
[2022-08-29] MEDS: LEVOTHYROXINE NA 25 MCG TABLET (FP) GT SCH (05:53)
[2022-08-29 05:59] VITALS: RESP 20
[2022-08-29] MEDS: POLYETHYLENE GLYCOL (HEALTHYLAX) 3350 17 GM PACKET GT SCH (06:50)
[2022-08-29] MEDS: ALBUTEROL SO4 2.5/IPRATROPIUM 0.5 INH SOL 3 ML VIAL.NEB. NEB SCH ×2 (08:06→11:38)
[2022-08-29 08:16] LABS: BASO % 0.5 % (0-2.0); EOS % 3.4 % (0-4.5); HEMATOCRIT 40.4 % (32.4-45.2); HEMOGLOBIN 13.1 GM/dL (10.7-15.3); MCH 26.8 pg (25.7-33.7); MCHC 32.4 g/dl (32.0-36.0); MEAN CELL VOLUME 82.8 fl (80-96); MEAN PLT VOLUME 8.7 fl (7.5-11.1); MONO % 11.2 % (3.8-10.2); NEUT % 56.9 % (42.8-82.8); PLATELET COUNT 358 10^3/uL (134-434); RBC 4.87 M/mm3 (3.60-5.2); WHITE BLOOD COUNT 7.5 K/mm3 (4.0-10.0)
[2022-08-29] MEDS: AMINO ACIDS/PROTEIN HYDROLYS 30 ML LIQUID.PKT PEG SCH (08:37)
[2022-08-29] MEDS: AMOX TR/POTASSIUM CLAVULANATE 600 MG/5 ML PO SCH (08:37)
[2022-08-29 08:56] LABS: CALCIUM 9.2 mg/dL (8.5-10.1)
[2022-08-29 08:57] LABS: ALBUMIN 3.2 g/dl (3.4-5.0)
[2022-08-29 09:00] LABS: CREATININE 0.4 mg/dL (0.55-1.3)
[2022-08-29 09:01] LABS: BILIRUBIN,TOTAL 0.3 mg/dL (0.2-1)
[2022-08-29] MEDS: predniSONE 20 MG TABLET (UD) PEG SCH (10:09)
[2022-08-29] MEDS: BACLOFEN 10 MG TABLET (FP) GT SCH (10:09)
[2022-08-29] MEDS: COD LIVER OIL/ZINC OXIDE PASTE 56 GM TUBE TP SCH (10:09)
[2022-08-29] MEDS: CALCIUM 500MG/VIT-D 200 UNITS COMBO TABLET (FP) GT SCH (10:09)
[2022-08-29] MEDS: DOCUSATE NA 100 MG/10 ML UNIT-DOSE CUPS GT SCH (10:09)
[2022-08-29] MEDS: ACETAMINOPHEN 650 MG/20.3 ML ORAL SOLUTION (CUPS) GT PRN (10:10)
[2022-08-29] MEDS: BACITRACIN ZINC 15 GM TUBE TOPICAL OINTMENT TP SCH (10:10)
[2022-08-29] MEDS: ENOXAPARIN NA (PORCINE) 40 MG/0.4 ML DISP.SYRIN SQ SCH (10:10)
[2022-08-29] MEDS: FAMOTIDINE 40 MG/5 ML ORAL SUSPENSION GT SCH (10:10)
[2022-08-29] MEDS: MINERAL OIL/PET HY-PHL TOPICAL OINTMENT 454 GM JAR TP SCH (10:10)
[2022-08-29 13:11] VITALS: TEMP 97.8
[2022-08-29 13:15] VITALS: BP 124/74; PULSE 98
== END 2022-08-29 13:00 | DRG 720 ==
LOC: JER 04:59 → JERBED 08:00 → J4S 08-20 02:23
PROVIDERS: ADMIT Internal Medicine; ATTEND Internal Medicine
DX: A41.89 Other specified sepsis (principal); J69.0 Pneumonitis due to inhalation of food and vomit; J96.02 Acute respiratory failure with hypercapnia; R53.2 Functional quadriplegia; I24.8 Other forms of acute ischemic heart disease; D72.829 Elevated white blood cell count, unspecified; G40.909 Epilepsy, unspecified, not intractable, without status epilepticus; L02.11 Cutaneous abscess of neck; Q02 Microcephaly; F79 Unspecified intellectual disabilities; R13.19 Other dysphagia; I25.10 Atherosclerotic heart disease of native coronary artery without angina pectoris; L91.0 Hypertrophic scar; J45.901 Unspecified asthma with (acute) exacerbation; G80.8 Other cerebral palsy; K59.00 Constipation, unspecified; Q67.5 Congenital deformity of spine; B95.62 Methicillin resistant Staphylococcus aureus infection as the cause of diseases classified elsewhere; J98.11 Atelectasis; Z74.01 Bed confinement status
CPT/HCPCS: 0241U-QW; 36415; 36600; 70490-TC; 70491-TC; 71045-TC-FY; 71260-TC; 74177-TC; 80048; 80053; 80184; 82803; 82962; 83605; 83735; 84100; 84484; 84703; 85025; 85027; 86140; 87040; 87070; 87081; 87186; 87205; 93005; 93010; 93306-TC; 94640; 94660; 99285-25; G0480; J0475; Q9967

== ENCOUNTER 2022-11-28 13:04 | Inpatient (IN) | payer OTHER ==
[2022-11-28] MEDS ORDERED: MAGNESIUM SULF 50% (8.12 MEQ/2 ML-1 GM VIAL) IVPB ONE (13:32)
[2022-11-28] MEDS ORDERED: MAGNESIUM SULFATE IN WATER 2 GM/50 ML IVPB IVPB ONE (13:37)
[2022-11-28] MEDS ORDERED: ALBUTEROL SO4 2.5/IPRATROPIUM 0.5 INH SOL 3 ML VIAL.NEB. NEB ONE (13:37)
[2022-11-28] MEDS ORDERED: SODIUM CHLORIDE 0.9% 500 ML INFUS.BAG IV ONE (13:38)
[2022-11-28] MEDS ORDERED: VANCOMYCIN 1 GM in D5W (PRE-DOCKED) 1,000 MG/250 ML (RESTRICTED TO ID ONLY IVPB ONE (13:40)
[2022-11-28] MEDS ORDERED: PIPERACILLIN/TAZOB 4.5 GM 4.5 GM in DEXTROSE 5%-WATER 100 ML IVPB ONE (13:41)
[2022-11-28] MEDS: ALBUTEROL SO4 2.5/IPRATROPIUM 0.5 INH SOL 3 ML VIAL.NEB. NEB SCH ×5 (13:53→20:52)
[2022-11-28 13:58] LABS: BASO % 0.3 % (0-2.0); EOS % 2.2 % (0-4.5); HEMATOCRIT 44.6 % (32.4-45.2); LYMPH % 12.9 % (8-40); MCH 25.3 pg (25.7-33.7); MCHC 31.5 g/dl (32.0-36.0); MEAN CELL VOLUME 80.3 fl (80-96); MEAN PLT VOLUME 9.6 fl (7.5-11.1); MONO % 7.8 % (3.8-10.2); NEUT % 76.8 % (42.8-82.8); PLATELET COUNT 264 10^3/uL (134-434); RBC 5.56 M/mm3 (3.60-5.2); RDW 18.9 % (11.6-15.6); WHITE BLOOD COUNT 10.6 K/mm3 (4.0-10.0)
[2022-11-28 14:01] LABS: VENOUS BASE EXCESS -3.8 mmol/L (-2-2); VENOUS PCO2 57.7 mmHg (38-52); VENOUS PH 7.246 (7.310-7.410)
[2022-11-28] MEDS ORDERED: PIPERACILLIN/TAZOB 3.375 GM 3.375 GM/50 ML BAG IVPB ONE (14:01)
[2022-11-28] MEDS ORDERED: PIPERACILLIN/TAZOB 4.5 GM 4.5 GM/100 ML BAG IVPB ONE (14:02)
[2022-11-28 14:13] LABS: POTASSIUM 4.4 mmol/L (3.5-5.1)
[2022-11-28 14:15] LABS: ALBUMIN 3.8 g/dl (3.4-5.0); BLOOD UREA NITROGEN 18.2 mg/dL (7-18); CALCIUM 9.3 mg/dL (8.5-10.1)
[2022-11-28 14:18] LABS: CREATININE 0.4 mg/dL (0.55-1.3)
[2022-11-28 14:20] LABS: BILIRUBIN,TOTAL 0.1 mg/dL (0.2-1); TOT PROT 7.7 g/dl (6.4-8.2)
[2022-11-28 15:26] LABS: EPI CELLS 8 /uL (0-25.1); HYALINE CASTS 0 /uL (0-3.1); PH,URINE 5.5 (5.0-8.0); URINE APPEARANCE CLEAR; URINE BACTERIA 4 /uL (0-1359); URINE BILIRUBIN NEGATIVE (NEGATIVE); URINE COLOR YELLOW; URINE GLUCOSE (UA) NEGATIVE (NEGATIVE); URINE KETONE TRACE (NEGATIVE); URINE LEUK ESTERASE NEGATIVE (NEGATIVE); URINE NITRITE NEGATIVE (NEGATIVE); URINE PROTEIN NEGATIVE (NEGATIVE); URINE RBC 821 /uL (0-23.9); URINE UROBILINOGEN 0.2 mg/dL (0.2-1.0); URINE WBC 10 /uL (0-25.8)
[2022-11-28] MEDS ORDERED: VANCOMYCIN/WATER FOR INJ (PEG) 1,000 MG/200 ML BAG IVPB ONE (15:34)
[2022-11-28 15:55] LABS: VENOUS BASE EXCESS -1.8 mmol/L (-2-2); VENOUS O2 SATURATION 96.9 % (70-80); VENOUS PH 7.373 (7.310-7.410)
[2022-11-28 16:02] LABS: ACTIVATED PTT 36.5 SECONDS (25.2-36.5); INR 1.17 (0.83-1.09); PROTHROMBIN TIME (PATIENT) 13.6 SEC (9.7-13.0)
[2022-11-28] MEDS ORDERED: ALBUTEROL SO4 0.083% IH SOL 2.5 MG/3 ML VIAL.NEB. NEB ONE (17:43)
[2022-11-28] MEDS ORDERED: ALBUTEROL SO4 HFA INHALER IH PRN (18:30)
[2022-11-28] MEDS ORDERED: traMADol HCL 50 MG TABLET PO ONE (18:40)
[2022-11-28] MEDS ORDERED: SIMETHICONE 40 MG/0.6 ML BOTTLE PO PRN (19:22)
[2022-11-28] MEDS ORDERED: BISACODYL 10 MG SUPP.RECT RC PRN (19:22)
[2022-11-28] MEDS ORDERED: ALBUTEROL SO4 0.083% IH SOL 2.5 MG/3 ML VIAL.NEB. NEB PRN (19:22)
[2022-11-28] MEDS ORDERED: diphenhydrAMINE HCL 12.5 MG/5 ML UNIT-DOSE CUPS GT PRN (19:22)
[2022-11-28] MEDS ORDERED: MAGNESIUM HYDROXIDE PO PRN (19:22)
[2022-11-28] MEDS ORDERED: BACITRACIN ZINC 15 GM TUBE TOPICAL OINTMENT TP PRN ×2 (19:22→19:48)
[2022-11-28] MEDS ORDERED: MAGNESIUM HYDROX 2400MG/30ML ORAL SUSPENSION 30 ML CUP PO PRN (19:50)
[2022-11-28] MEDS: methylPREDNISolone NA SUCC 40 MG/1 ML VIAL IVPUSH SCH (20:30)
[2022-11-28] MEDS: PIPERACILLIN/TAZOB 3.375 GM 3.375 GM in DEXTROSE 5%-WATER - 50 ML IVPB SCH (20:31)
[2022-11-28] MEDS ORDERED: PATIENT'S OWN MEDICATION (NON-FORMULARY) (Baclofen [Baclofen] 20 MG Tablet) GT SCH (22:00)
[2022-11-28] MEDS ORDERED: MONTELUKAST NA 10 MG TABLET PEG SCH (22:00)
[2022-11-28] MEDS ORDERED: AMMONIUM LACTATE 12% CREAM 140 GM TUBE TP SCH (22:00)
[2022-11-28] MEDS ORDERED: PHENobarbital 20 MG/5 ML UNIT-DOSE CUP GT SCH (22:00)
[2022-11-28] MEDS: MONTELUKAST NA 10 MG TABLET PEG SCH (23:44)
[2022-11-28] MEDS: BUDESONIDE/FORMETEROL FUMARATE 80/4.5 mcg INHALER IH SCH (23:44)
[2022-11-28] MEDS: CALCIUM 500MG/VIT-D 200 UNITS COMBO TABLET (FP) GT SCH (23:45)
[2022-11-28] MEDS: guaiFENesin 600 MG TABLET.ER (FP) PO SCH (23:45)
[2022-11-28] MEDS: BACLOFEN 10 MG TABLET (FP) GT SCH (23:45)
[2022-11-28] MEDS: DOCUSATE NA 100 MG/10 ML UNIT-DOSE CUPS GT SCH (23:45)
[2022-11-28] MEDS ORDERED: SIMETHICONE 40 MG/0.6 ML BOTTLE GT PRN (23:47)
[2022-11-28] MEDS: MUPIROCIN 2% TOPICAL OINTMENT 22 GM TUBE TP SCH (23:47)
[2022-11-28] MEDS ORDERED: PHENobarbital SODIUM 65 MG/1 ML VIAL IVPUSH ONE (23:50)
[2022-11-29 02:03] VITALS: BMI 24.0
[2022-11-29] MEDS: PIPERACILLIN/TAZOB 3.375 GM 3.375 GM in DEXTROSE 5%-WATER - 50 ML IVPB SCH ×4 (02:20→18:16)
[2022-11-29] MEDS: methylPREDNISolone NA SUCC 40 MG/1 ML VIAL IVPUSH SCH ×3 (02:20→18:16)
[2022-11-29] MEDS: LEVOTHYROXINE NA 25 MCG TABLET (FP) GT SCH (06:24)
[2022-11-29 07:29] LABS: HEMATOCRIT 40.1 % (32.4-45.2); HEMOGLOBIN 12.9 GM/dL (10.7-15.3); MCH 25.8 pg (25.7-33.7); MCHC 32.2 g/dl (32.0-36.0); MEAN CELL VOLUME 80.1 fl (80-96); MEAN PLT VOLUME 9.5 fl (7.5-11.1); PLATELET COUNT 239 10^3/uL (134-434); RDW 18.7 % (11.6-15.6); WHITE BLOOD COUNT 9.8 K/mm3 (4.0-10.0)
[2022-11-29 07:39] LABS: POTASSIUM 4.3 mmol/L (3.5-5.1)
[2022-11-29 07:49] LABS: BLOOD UREA NITROGEN 12.8 mg/dL (7-18); CALCIUM 8.6 mg/dL (8.5-10.1)
[2022-11-29 07:50] LABS: ALBUMIN 3.4 g/dl (3.4-5.0); MAGNESIUM 2.5 mg/dL (1.8-2.4)
[2022-11-29 07:52] LABS: CREATININE 0.4 mg/dL (0.55-1.3); PHOSPHOROUS 3.3 mg/dL (2.5-4.9)
[2022-11-29 07:54] LABS: BILIRUBIN,TOTAL 0.4 mg/dL (0.2-1); TOT PROT 7.2 g/dl (6.4-8.2)
[2022-11-29] MEDS: ALBUTEROL SO4 2.5/IPRATROPIUM 0.5 INH SOL 3 ML VIAL.NEB. NEB SCH ×3 (08:16→20:37)
[2022-11-29] MEDS ORDERED: SODIUM CHLORIDE 250 ML IV STA (08:54)
[2022-11-29 09:04] LABS: ANISOCYTOSIS 0; HELMET CELLS 0; HOWELL-JOLLY BODIES 0; MACROCYTOSIS 0; OVALOCYTE 0; ROULEAU 0; SICKELED CELLS 0; TARGET CELLS 0; TEAR DROP CELLS 0; TOXIC GRANULATION 0
[2022-11-29] MEDS ORDERED: LEVOTHYROXINE NA 50 MCG TABLET (FP) GT SCH (10:00)
[2022-11-29] MEDS ORDERED: predniSONE 5 MG TABLET (UD) GT SCH (10:00)
[2022-11-29] MEDS ORDERED: predniSONE 10 MG TABLET (UD) GT SCH (10:00)
[2022-11-29] MEDS ORDERED: LEVOTHYROXINE NA 25 MCG TABLET (FP) GT SCH (10:00)
[2022-11-29] MEDS ORDERED: ALBUTEROL SO4 2.5/IPRATROPIUM 0.5 INH SOL 3 ML VIAL.NEB. NEB ONE (11:15)
[2022-11-29] MEDS: DOCUSATE NA 100 MG/10 ML UNIT-DOSE CUPS GT SCH (11:17)
[2022-11-29] MEDS: BACLOFEN 10 MG TABLET (FP) GT SCH (11:18)
[2022-11-29] MEDS: ENOXAPARIN NA (PORCINE) 40 MG/0.4 ML DISP.SYRIN SQ SCH (11:20)
[2022-11-29] MEDS: guaiFENesin 600 MG TABLET.ER (FP) PO SCH (11:21)
[2022-11-29] MEDS: CALCIUM 500MG/VIT-D 200 UNITS COMBO TABLET (FP) GT SCH (11:21)
[2022-11-29] MEDS: MUPIROCIN 2% TOPICAL OINTMENT 22 GM TUBE TP SCH ×2 (11:22→22:10)
[2022-11-29] MEDS: BUDESONIDE/FORMETEROL FUMARATE 80/4.5 mcg INHALER IH SCH ×2 (11:23→22:10)
[2022-11-29] MEDS: FAMOTIDINE 20 MG/2.5 ML ORAL LIQUID GT SCH (11:25)
[2022-11-29] MEDS: AMMONIUM LACTATE 12% LOTION 225 GM BOTTLE TP SCH ×2 (11:52→22:09)
[2022-11-29] MEDS ORDERED: VANCOMYCIN 1 GM/200 ML PREMIX BAG (RESTRICTED TO ID ONLY) IVPB SCH (16:00)
[2022-11-29] MEDS: FAMOTIDINE 20 MG/50 ML IVPB 20 MG/50 ML MG IVPB SCH (16:23)
[2022-11-29] MEDS ORDERED: DEXTROSE 5%-NORMAL SALINE 1,000 ML IV SCH (21:45)
[2022-11-29] MEDS: PHENobarbital SODIUM 65 MG/1 ML VIAL IVPUSH SCH (21:55)
[2022-11-29] MEDS ORDERED: PHENobarbital SODIUM 65 MG/1 ML VIAL IVPUSH SCH (22:00)
[2022-11-30] MEDS: PIPERACILLIN/TAZOB 3.375 GM 3.375 GM in DEXTROSE 5%-WATER - 50 ML IVPB SCH ×3 (02:46→18:04)
[2022-11-30] MEDS: methylPREDNISolone NA SUCC 40 MG/1 ML VIAL IVPUSH SCH ×3 (02:46→18:04)
[2022-11-30] MEDS: LEVOTHYROXINE SODIUM 100 MCG 5 ML VIAL IVPUSH SCH (06:01)
[2022-11-30] MEDS ORDERED: LEVOTHYROXINE SODIUM 100 MCG 5 ML VIAL IVPUSH SCH ×2 (07:00→10:00)
[2022-11-30] MEDS: ALBUTEROL SO4 2.5/IPRATROPIUM 0.5 INH SOL 3 ML VIAL.NEB. NEB SCH ×3 (08:15→20:50)
[2022-11-30] MEDS ORDERED: PHENobarbital SODIUM 65 MG/1 ML VIAL IVPUSH SCH (10:00)
[2022-11-30] MEDS: ENOXAPARIN NA (PORCINE) 40 MG/0.4 ML DISP.SYRIN SQ SCH (10:55)
[2022-11-30] MEDS: FAMOTIDINE 20 MG/50 ML IVPB 20 MG/50 ML MG IVPB SCH (10:55)
[2022-11-30] MEDS: BUDESONIDE/FORMETEROL FUMARATE 80/4.5 mcg INHALER IH SCH ×2 (10:58→22:07)
[2022-11-30] MEDS: AMMONIUM LACTATE 12% LOTION 225 GM BOTTLE TP SCH ×2 (10:58→22:07)
[2022-11-30] MEDS: MUPIROCIN 2% TOPICAL OINTMENT 22 GM TUBE TP SCH ×2 (10:58→22:07)
[2022-11-30] MEDS ORDERED: DEXTROSE 5%-NORMAL SALINE 1,000 ML IV ONE (21:12)
[2022-11-30] MEDS: PHENobarbital SODIUM 65 MG/1 ML VIAL IVPUSH SCH (22:06)
[2022-12-01] MEDS: methylPREDNISolone NA SUCC 40 MG/1 ML VIAL IVPUSH SCH ×3 (01:55→17:21)
[2022-12-01] MEDS: PIPERACILLIN/TAZOB 3.375 GM 3.375 GM in DEXTROSE 5%-WATER - 50 ML IVPB SCH ×3 (01:55→17:21)
[2022-12-01] MEDS: LEVOTHYROXINE SODIUM 100 MCG 5 ML VIAL IVPUSH SCH (06:12)
[2022-12-01] MEDS: ALBUTEROL SO4 2.5/IPRATROPIUM 0.5 INH SOL 3 ML VIAL.NEB. NEB SCH ×3 (07:20→19:39)
[2022-12-01 07:53] LABS: HEMATOCRIT 41.3 % (32.4-45.2); HEMOGLOBIN 13.1 GM/dL (10.7-15.3); MCH 25.9 pg (25.7-33.7); MCHC 31.7 g/dl (32.0-36.0); MEAN CELL VOLUME 81.7 fl (80-96); MEAN PLT VOLUME 9.6 fl (7.5-11.1); PLATELET COUNT 231 10^3/uL (134-434); RBC 5.06 M/mm3 (3.60-5.2); RDW 18.9 % (11.6-15.6); WHITE BLOOD COUNT 11.3 K/mm3 (4.0-10.0)
[2022-12-01] MEDS: ENOXAPARIN NA (PORCINE) 40 MG/0.4 ML DISP.SYRIN SQ SCH (09:27)
[2022-12-01] MEDS: AMINO ACIDS 4.25%/D5W 1,000 ML IV SCH (09:27)
[2022-12-01] MEDS: FAMOTIDINE 20 MG/50 ML IVPB 20 MG/50 ML MG IVPB SCH (09:30)
[2022-12-01] MEDS: MUPIROCIN 2% TOPICAL OINTMENT 22 GM TUBE TP SCH ×2 (10:28→22:12)
[2022-12-01] MEDS: AMMONIUM LACTATE 12% LOTION 225 GM BOTTLE TP SCH ×2 (10:28→22:12)
[2022-12-01] MEDS: BUDESONIDE/FORMETEROL FUMARATE 80/4.5 mcg INHALER IH SCH ×2 (10:31→22:27)
[2022-12-01] MEDS ORDERED: FAT EMULSION/OLIVE/SOY (CLINOLIPID) 250 ML EMULSION IV SCH (22:00)
[2022-12-01] MEDS: PHENobarbital SODIUM 65 MG/1 ML VIAL IVPUSH SCH (22:12)
[2022-12-01] MEDS: FAT EMULSION/OLIVE/SOY/PHOSPHO 250 ML IV SCH (22:20)
[2022-12-02] MEDS: PIPERACILLIN/TAZOB 3.375 GM 3.375 GM in DEXTROSE 5%-WATER - 50 ML IVPB SCH ×3 (01:52→17:42)
[2022-12-02] MEDS: methylPREDNISolone NA SUCC 40 MG/1 ML VIAL IVPUSH SCH ×3 (01:52→17:41)
[2022-12-02] MEDS: AMINO ACIDS 4.25%/D5W 1,000 ML IV SCH (06:36)
[2022-12-02] MEDS: LEVOTHYROXINE SODIUM 100 MCG 5 ML VIAL IVPUSH SCH (06:37)
[2022-12-02] MEDS: ALBUTEROL SO4 2.5/IPRATROPIUM 0.5 INH SOL 3 ML VIAL.NEB. NEB SCH ×3 (07:40→20:35)
[2022-12-02 10:08] LABS: HEMATOCRIT 38.9 % (32.4-45.2); HEMOGLOBIN 12.3 GM/dL (10.7-15.3); MCH 25.6 pg (25.7-33.7); MCHC 31.7 g/dl (32.0-36.0); MEAN CELL VOLUME 80.8 fl (80-96); MEAN PLT VOLUME 9.4 fl (7.5-11.1); PLATELET COUNT 192 10^3/uL (134-434); RBC 4.81 M/mm3 (3.60-5.2); RDW 18.6 % (11.6-15.6); WHITE BLOOD COUNT 12.4 K/mm3 (4.0-10.0)
[2022-12-02] MEDS: AMMONIUM LACTATE 12% LOTION 225 GM BOTTLE TP SCH ×2 (10:49→23:01)
[2022-12-02] MEDS: ENOXAPARIN NA (PORCINE) 40 MG/0.4 ML DISP.SYRIN SQ SCH (10:49)
[2022-12-02] MEDS: FAMOTIDINE 20 MG/50 ML IVPB 20 MG/50 ML MG IVPB SCH (10:49)
[2022-12-02] MEDS: MUPIROCIN 2% TOPICAL OINTMENT 22 GM TUBE TP SCH ×2 (10:49→23:01)
[2022-12-02] MEDS: BUDESONIDE/FORMETEROL FUMARATE 80/4.5 mcg INHALER IH SCH ×2 (10:50→23:00)
[2022-12-02] MEDS ORDERED: VANCOMYCIN/WATER FOR INJ (PEG) 1,000 MG/200 ML BAG IVPB ONE (13:53)
[2022-12-02] MEDS: PHENobarbital SODIUM 65 MG/1 ML VIAL IVPUSH SCH (22:56)
[2022-12-02] MEDS: FAT EMULSION/OLIVE/SOY/PHOSPHO 250 ML IV SCH (22:58)
[2022-12-03] MEDS: methylPREDNISolone NA SUCC 40 MG/1 ML VIAL IVPUSH SCH ×2 (01:22→14:43)
[2022-12-03] MEDS: PIPERACILLIN/TAZOB 3.375 GM 3.375 GM in DEXTROSE 5%-WATER - 50 ML IVPB SCH ×3 (01:22→18:02)
[2022-12-03] MEDS: AMINO ACIDS 4.25%/D5W 1,000 ML IV SCH ×2 (05:22→08:34)
[2022-12-03] MEDS: LEVOTHYROXINE SODIUM 100 MCG 5 ML VIAL IVPUSH SCH (06:03)
[2022-12-03] MEDS: ALBUTEROL SO4 2.5/IPRATROPIUM 0.5 INH SOL 3 ML VIAL.NEB. NEB SCH ×3 (07:40→19:46)
[2022-12-03] MEDS: ENOXAPARIN NA (PORCINE) 40 MG/0.4 ML DISP.SYRIN SQ SCH ×2 (10:03→22:59)
[2022-12-03] MEDS: FAMOTIDINE 20 MG/50 ML IVPB 20 MG/50 ML MG IVPB SCH (10:03)
[2022-12-03 10:48] LABS: BASO % 0.3 % (0-2.0); HEMATOCRIT 41.8 % (32.4-45.2); HEMOGLOBIN 13.2 GM/dL (10.7-15.3); LYMPH % 15.5 % (8-40); MCH 25.7 pg (25.7-33.7); MCHC 31.5 g/dl (32.0-36.0); MEAN CELL VOLUME 81.4 fl (80-96); MEAN PLT VOLUME 9.3 fl (7.5-11.1); MONO % 7.9 % (3.8-10.2); NEUT % 75.3 % (42.8-82.8); PLATELET COUNT 227 10^3/uL (134-434); RBC 5.13 M/mm3 (3.60-5.2); RDW 18.8 % (11.6-15.6); WHITE BLOOD COUNT 9.2 K/mm3 (4.0-10.0)
[2022-12-03] MEDS: MUPIROCIN 2% TOPICAL OINTMENT 22 GM TUBE TP SCH ×2 (10:51→23:03)
[2022-12-03] MEDS: BUDESONIDE/FORMETEROL FUMARATE 80/4.5 mcg INHALER IH SCH ×2 (10:53→23:04)
[2022-12-03] MEDS: AMMONIUM LACTATE 12% LOTION 225 GM BOTTLE TP SCH ×2 (10:53→23:03)
[2022-12-03 11:09] LABS: CHLORIDE 106 mmol/L (98-107); SODIUM 142 mmol/L (136-145)
[2022-12-03 11:12] LABS: CALCIUM 8.8 mg/dL (8.5-10.1)
[2022-12-03 11:13] LABS: ALBUMIN 3.3 g/dl (3.4-5.0); BLOOD UREA NITROGEN 11.2 mg/dL (7-18); CO2 29 mmol/L (21-32); GLUCOSE,RANDOM 107 mg/dL (74-106); MAGNESIUM 1.9 mg/dL (1.8-2.4)
[2022-12-03 11:16] LABS: CREATININE 0.3 mg/dL (0.55-1.3); PHOSPHOROUS 1.5 mg/dL (2.5-4.9); SGOT/AST 23 U/L (15-37); SGPT/ALT 41 U/L (13-61)
[2022-12-03 11:18] LABS: BILIRUBIN,TOTAL 0.3 mg/dL (0.2-1); TOT PROT 6.9 g/dl (6.4-8.2)
[2022-12-03 11:19] LABS: ALK PHOS 82 U/L (45-117)
[2022-12-03 11:21] LABS: ANION GAP 7 MMOL/L (8-16); POTASSIUM 2.9 mmol/L (3.5-5.1)
[2022-12-03] MEDS ORDERED: POTASSIUM PHOSPHATE 30 MM in AMINO ACIDS 4.25%/D5W 1,000 ML IVPB SCH (15:27)
[2022-12-03] MEDS ORDERED: POTASSIUM CHLORIDE ORAL LIQUID 20 MEQ/15 ML GT ONE ×2 (15:28→16:30)
[2022-12-03] MEDS ORDERED: POTASSIUM PHOSPHATE 30 MM in SODIUM CHLORIDE 500 ML IVPB ONE (15:30)
[2022-12-03] MEDS ORDERED: POTASSIUM CHLORIDE 30 MEQ in AMINO ACIDS 4.25%/D5W 1,000 ML IVPB SCH (16:21)
[2022-12-03] MEDS: PHENobarbital SODIUM 65 MG/1 ML VIAL IVPUSH SCH (22:59)
[2022-12-03] MEDS: FAT EMULSION/OLIVE/SOY/PHOSPHO 250 ML IV SCH (23:00)
[2022-12-04] MEDS: methylPREDNISolone NA SUCC 40 MG/1 ML VIAL IVPUSH SCH ×2 (01:31→16:57)
[2022-12-04] MEDS: PIPERACILLIN/TAZOB 3.375 GM 3.375 GM in DEXTROSE 5%-WATER - 50 ML IVPB SCH ×3 (01:32→17:49)
[2022-12-04] MEDS: TUBE FEED DECLOGGING SOLUTION 12,000 UNITS GT SCH ×3 (02:09→16:48)
[2022-12-04 02:46] LABS: POTASSIUM 3.9 mmol/L (3.5-5.1)
[2022-12-04 02:47] LABS: CALCIUM 8.2 mg/dL (8.5-10.1)
[2022-12-04 02:48] LABS: BLOOD UREA NITROGEN 9.3 mg/dL (7-18); MAGNESIUM 1.6 mg/dL (1.8-2.4)
[2022-12-04 02:51] LABS: CREATININE 0.3 mg/dL (0.55-1.3)
[2022-12-04] MEDS ORDERED: MAGNESIUM 1GM/D5W 100ML - 100 ML IVPB IVPB ONE (04:30)
[2022-12-04] MEDS: LEVOTHYROXINE SODIUM 100 MCG 5 ML VIAL IVPUSH SCH (06:39)
[2022-12-04] MEDS: ALBUTEROL SO4 2.5/IPRATROPIUM 0.5 INH SOL 3 ML VIAL.NEB. NEB SCH ×3 (07:42→19:31)
[2022-12-04] MEDS ORDERED: MAGNESIUM SULF 50% (8.12 MEQ/2 ML-1 GM VIAL) IVPB ONE (07:58)
[2022-12-04] MEDS ORDERED: MAGNESIUM 2GM/50ML STERILE WATER IVPB IVPB ONE ×2 (08:30→10:30)
[2022-12-04] MEDS: ENOXAPARIN NA (PORCINE) 40 MG/0.4 ML DISP.SYRIN SQ SCH (09:35)
[2022-12-04] MEDS: FAMOTIDINE 20 MG/50 ML IVPB 20 MG/50 ML MG IVPB SCH (09:35)
[2022-12-04] MEDS: AMMONIUM LACTATE 12% LOTION 225 GM BOTTLE TP SCH ×2 (09:39→23:10)
[2022-12-04] MEDS: MUPIROCIN 2% TOPICAL OINTMENT 22 GM TUBE TP SCH ×2 (09:39→23:14)
[2022-12-04] MEDS: BUDESONIDE/FORMETEROL FUMARATE 80/4.5 mcg INHALER IH SCH ×2 (09:40→23:15)
[2022-12-04 11:02] LABS: HEMATOCRIT 41.9 % (32.4-45.2); HEMOGLOBIN 13.3 GM/dL (10.7-15.3); MCH 25.4 pg (25.7-33.7); MCHC 31.7 g/dl (32.0-36.0); MEAN CELL VOLUME 80.3 fl (80-96); MEAN PLT VOLUME 9.4 fl (7.5-11.1); PLATELET COUNT 223 10^3/uL (134-434); RBC 5.22 M/mm3 (3.60-5.2); RDW 18.6 % (11.6-15.6); WHITE BLOOD COUNT 9.2 K/mm3 (4.0-10.0)
[2022-12-04 11:13] LABS: POTASSIUM 4.9 mmol/L (3.5-5.1)
[2022-12-04 11:14] LABS: CALCIUM 8.6 mg/dL (8.5-10.1)
[2022-12-04 11:15] LABS: BLOOD UREA NITROGEN 9.2 mg/dL (7-18); MAGNESIUM 2.4 mg/dL (1.8-2.4)
[2022-12-04 11:18] LABS: CREATININE 0.2 mg/dL (0.55-1.3); PHOSPHOROUS 1.9 mg/dL (2.5-4.9)
[2022-12-04] MEDS: ZINC OXIDE 20% TOPICAL OINTMENT 30 GM TUBE TP SCH ×2 (16:49→23:15)
[2022-12-04] MEDS ORDERED: PATIENT'S OWN MEDICATION (NON-FORMULARY) (Phenobarbital [Phenobarbital] 64.8 MG Tablet) GT SCH (22:00)
[2022-12-04] MEDS ORDERED: PHENobarbital 30 MG TABLET GT SCH (22:00)
[2022-12-04] MEDS: PHENobarbital 30 MG TABLET GT SCH (23:10)
[2022-12-05] MEDS: PIPERACILLIN/TAZOB 3.375 GM 3.375 GM in DEXTROSE 5%-WATER - 50 ML IVPB SCH ×3 (01:49→17:34)
[2022-12-05] MEDS: LEVOTHYROXINE NA 25 MCG TABLET (FP) GT SCH (06:57)
[2022-12-05 07:10] LABS: HEMATOCRIT 40.5 % (32.4-45.2); HEMOGLOBIN 13.2 GM/dL (10.7-15.3); MCHC 32.6 g/dl (32.0-36.0); MEAN CELL VOLUME 79.8 fl (80-96); MEAN PLT VOLUME 9.7 fl (7.5-11.1); PLATELET COUNT 237 10^3/uL (134-434); RBC 5.07 M/mm3 (3.60-5.2); RDW 18.8 % (11.6-15.6); WHITE BLOOD COUNT 9.2 K/mm3 (4.0-10.0)
[2022-12-05 07:32] LABS: POTASSIUM 3.5 mmol/L (3.5-5.1)
[2022-12-05 07:36] LABS: BLOOD UREA NITROGEN 9.3 mg/dL (7-18); MAGNESIUM 2.3 mg/dL (1.8-2.4)
[2022-12-05 07:38] LABS: CALCIUM 8.9 mg/dL (8.5-10.1)
[2022-12-05 07:40] LABS: CREATININE 0.3 mg/dL (0.55-1.3); PHOSPHOROUS 2.9 mg/dL (2.5-4.9)
[2022-12-05] MEDS: ALBUTEROL SO4 2.5/IPRATROPIUM 0.5 INH SOL 3 ML VIAL.NEB. NEB SCH ×3 (08:30→20:18)
[2022-12-05] MEDS: predniSONE 5 MG/5 ML ORAL SOLN- UNIT-DOSE CUP GT SCH (10:45)
[2022-12-05] MEDS: TUBE FEED DECLOGGING SOLUTION 12,000 UNITS GT SCH ×3 (10:45→17:21)
[2022-12-05] MEDS: MUPIROCIN 2% TOPICAL OINTMENT 22 GM TUBE TP SCH ×2 (10:45→23:00)
[2022-12-05] MEDS: AMMONIUM LACTATE 12% LOTION 225 GM BOTTLE TP SCH ×2 (10:45→23:01)
[2022-12-05] MEDS: ZINC OXIDE 20% TOPICAL OINTMENT 30 GM TUBE TP SCH ×2 (10:46→23:02)
[2022-12-05] MEDS: BUDESONIDE/FORMETEROL FUMARATE 80/4.5 mcg INHALER IH SCH (10:46)
[2022-12-05] MEDS: ENOXAPARIN NA (PORCINE) 40 MG/0.4 ML DISP.SYRIN SQ SCH (10:46)
[2022-12-05] MEDS: FAMOTIDINE 20 MG/50 ML IVPB 20 MG/50 ML MG IVPB SCH (10:59)
[2022-12-05] MEDS: guaiFENesin 600 MG TABLET.ER (FP) PO SCH (22:59)
[2022-12-05] MEDS: MONTELUKAST NA 10 MG TABLET PEG SCH (22:59)
[2022-12-05] MEDS: CALCIUM 500MG/VIT-D 200 UNITS COMBO TABLET (FP) GT SCH (23:00)
[2022-12-05] MEDS: PHENobarbital 30 MG TABLET GT SCH (23:00)
[2022-12-05] MEDS: BACLOFEN 10 MG TABLET (FP) GT SCH (23:00)
[2022-12-05] MEDS: DOCUSATE NA 100 MG/10 ML UNIT-DOSE CUPS GT SCH (23:01)
[2022-12-06] MEDS: PIPERACILLIN/TAZOB 3.375 GM 3.375 GM in DEXTROSE 5%-WATER - 50 ML IVPB SCH ×3 (02:11→17:34)
[2022-12-06] MEDS: LEVOTHYROXINE NA 25 MCG TABLET (FP) GT SCH (06:21)
[2022-12-06] MEDS: ALBUTEROL SO4 2.5/IPRATROPIUM 0.5 INH SOL 3 ML VIAL.NEB. NEB SCH ×3 (07:40→20:10)
[2022-12-06 07:53] LABS: HEMATOCRIT 38.9 % (32.4-45.2); HEMOGLOBIN 12.4 GM/dL (10.7-15.3); MCH 25.1 pg (25.7-33.7); MCHC 31.8 g/dl (32.0-36.0); MEAN CELL VOLUME 78.9 fl (80-96); PLATELET COUNT 208 10^3/uL (134-434); RBC 4.93 M/mm3 (3.60-5.2); RDW 19.1 % (11.6-15.6)
[2022-12-06 08:05] LABS: POTASSIUM 3.4 mmol/L (3.5-5.1)
[2022-12-06 08:06] LABS: CALCIUM 9.1 mg/dL (8.5-10.1)
[2022-12-06 08:07] LABS: BLOOD UREA NITROGEN 9.1 mg/dL (7-18)
[2022-12-06 08:10] LABS: CREATININE 0.3 mg/dL (0.55-1.3); PHOSPHOROUS 3.6 mg/dL (2.5-4.9)
[2022-12-06] MEDS ORDERED: POTASSIUM CHLORIDE ORAL LIQUID 20 MEQ/15 ML GT ONE (09:21)
[2022-12-06] MEDS: MUPIROCIN 2% TOPICAL OINTMENT 22 GM TUBE TP SCH ×2 (09:30→22:08)
[2022-12-06] MEDS: CALCIUM 500MG/VIT-D 200 UNITS COMBO TABLET (FP) GT SCH ×2 (09:30→22:07)
[2022-12-06] MEDS: ENOXAPARIN NA (PORCINE) 40 MG/0.4 ML DISP.SYRIN SQ SCH (09:30)
[2022-12-06] MEDS: guaiFENesin 600 MG TABLET.ER (FP) PO SCH ×2 (09:30→22:07)
[2022-12-06] MEDS: DOCUSATE NA 100 MG/10 ML UNIT-DOSE CUPS GT SCH ×2 (09:30→22:07)
[2022-12-06] MEDS: predniSONE 5 MG/5 ML ORAL SOLN- UNIT-DOSE CUP GT SCH (09:30)
[2022-12-06] MEDS: BACLOFEN 10 MG TABLET (FP) GT SCH ×2 (09:30→22:07)
[2022-12-06] MEDS: AMMONIUM LACTATE 12% LOTION 225 GM BOTTLE TP SCH ×2 (09:31→22:08)
[2022-12-06] MEDS: FAMOTIDINE 20 MG/2.5 ML ORAL LIQUID GT SCH (09:32)
[2022-12-06] MEDS: ZINC OXIDE 20% TOPICAL OINTMENT 30 GM TUBE TP SCH ×2 (09:33→22:08)
[2022-12-06] MEDS: TUBE FEED DECLOGGING SOLUTION 12,000 UNITS GT SCH ×3 (09:45→17:13)
[2022-12-06] MEDS: FAMOTIDINE 20 MG/50 ML IVPB 20 MG/50 ML MG IVPB SCH (10:53)
[2022-12-06] MEDS ORDERED: PHENobarbital 30 MG TABLET GT SCH (15:05)
[2022-12-06] MEDS: MONTELUKAST NA 10 MG TABLET PEG SCH (22:08)
[2022-12-07] MEDS: PIPERACILLIN/TAZOB 3.375 GM 3.375 GM in DEXTROSE 5%-WATER - 50 ML IVPB SCH (01:28)
[2022-12-07] MEDS: LEVOTHYROXINE NA 25 MCG TABLET (FP) GT SCH (06:06)
[2022-12-07] MEDS: TUBE FEED DECLOGGING SOLUTION 12,000 UNITS GT SCH ×3 (08:00→18:11)
[2022-12-07] MEDS: ALBUTEROL SO4 2.5/IPRATROPIUM 0.5 INH SOL 3 ML VIAL.NEB. NEB SCH ×3 (08:28→20:33)
[2022-12-07] MEDS ORDERED: diphenhydrAMINE HCL 12.5 MG/5 ML UNIT-DOSE CUPS GT PRN (08:38)
[2022-12-07] MEDS ORDERED: MAGNESIUM HYDROX 2400MG/30ML ORAL SUSPENSION 30 ML CUP GT PRN (08:38)
[2022-12-07] MEDS ORDERED: BISACODYL 10 MG SUPP.RECT RC PRN (08:38)
[2022-12-07] MEDS ORDERED: ALBUTEROL SO4 0.083% IH SOL 2.5 MG/3 ML VIAL.NEB. NEB PRN (08:38)
[2022-12-07] MEDS ORDERED: ALBUTEROL SO4 HFA INHALER IH PRN (08:38)
[2022-12-07] MEDS: BACLOFEN 10 MG TABLET (FP) GT SCH ×2 (09:58→23:02)
[2022-12-07] MEDS: ENOXAPARIN NA (PORCINE) 40 MG/0.4 ML DISP.SYRIN SQ SCH (09:58)
[2022-12-07] MEDS: CALCIUM 500MG/VIT-D 200 UNITS COMBO TABLET (FP) GT SCH ×2 (09:59→23:02)
[2022-12-07] MEDS: DOCUSATE NA 100 MG/10 ML UNIT-DOSE CUPS GT SCH ×2 (09:59→23:02)
[2022-12-07] MEDS: predniSONE 5 MG/5 ML ORAL SOLN- UNIT-DOSE CUP GT SCH (10:00)
[2022-12-07] MEDS ORDERED: PIPERACILLIN/TAZOB 3.375 GM 3.375 GM in DEXTROSE 5%-WATER - 50 ML IVPB SCH (10:00)
[2022-12-07] MEDS ORDERED: PIPERACILLIN/TAZOB 3.375 GM 3.375 GM in DEXTROSE 5%-WATER - 50 ML IVPB ONE (10:00)
[2022-12-07] MEDS ORDERED: guaiFENesin 600 MG TABLET.ER (FP) PO SCH (10:00)
[2022-12-07] MEDS ORDERED: FAMOTIDINE 20 MG/50 ML IVPB 20 MG/50 ML MG IVPB SCH (10:00)
[2022-12-07] MEDS: MUPIROCIN 2% TOPICAL OINTMENT 22 GM TUBE TP SCH ×2 (10:05→23:04)
[2022-12-07] MEDS: ZINC OXIDE 20% TOPICAL OINTMENT 30 GM TUBE TP SCH ×2 (10:07→23:04)
[2022-12-07] MEDS: AMMONIUM LACTATE 12% LOTION 225 GM BOTTLE TP SCH ×2 (10:09→23:03)
[2022-12-07 10:11] LABS: POTASSIUM 4.2 mmol/L (3.5-5.1)
[2022-12-07] MEDS: FAMOTIDINE 20 MG/2.5 ML ORAL LIQUID GT SCH (10:11)
[2022-12-07 10:14] LABS: CALCIUM 9.9 mg/dL (8.5-10.1)
[2022-12-07 10:15] LABS: BLOOD UREA NITROGEN 8.6 mg/dL (7-18)
[2022-12-07 10:18] LABS: PHOSPHOROUS 3.5 mg/dL (2.5-4.9)
[2022-12-07 10:19] LABS: CREATININE 0.4 mg/dL (0.55-1.3)
[2022-12-07] MEDS: PHENobarbital 20 MG/5 ML UNIT-DOSE CUP GT SCH (23:02)
[2022-12-07] MEDS: MONTELUKAST NA 10 MG TABLET PEG SCH (23:02)
[2022-12-08] MEDS: LEVOTHYROXINE NA 25 MCG TABLET (FP) GT SCH (07:42)
[2022-12-08] MEDS: ALBUTEROL SO4 2.5/IPRATROPIUM 0.5 INH SOL 3 ML VIAL.NEB. NEB SCH ×3 (07:54→20:32)
[2022-12-08 09:52] LABS: POTASSIUM 4.1 mmol/L (3.5-5.1)
[2022-12-08 09:55] LABS: BLOOD UREA NITROGEN 9.3 mg/dL (7-18); MAGNESIUM 1.8 mg/dL (1.8-2.4)
[2022-12-08 09:56] LABS: CALCIUM 9.7 mg/dL (8.5-10.1)
[2022-12-08] MEDS: ENOXAPARIN NA (PORCINE) 40 MG/0.4 ML DISP.SYRIN SQ SCH (09:57)
[2022-12-08] MEDS: DOCUSATE NA 100 MG/10 ML UNIT-DOSE CUPS GT SCH ×2 (09:57→23:01)
[2022-12-08] MEDS: CALCIUM 500MG/VIT-D 200 UNITS COMBO TABLET (FP) GT SCH ×2 (09:58→23:01)
[2022-12-08] MEDS: BACLOFEN 10 MG TABLET (FP) GT SCH ×2 (09:58→23:01)
[2022-12-08] MEDS: predniSONE 5 MG/5 ML ORAL SOLN- UNIT-DOSE CUP GT SCH (09:58)
[2022-12-08 09:59] LABS: CREATININE 0.2 mg/dL (0.55-1.3); PHOSPHOROUS 3.4 mg/dL (2.5-4.9)
[2022-12-08] MEDS: FAMOTIDINE 20 MG/2.5 ML ORAL LIQUID GT SCH (09:59)
[2022-12-08] MEDS: ZINC OXIDE 20% TOPICAL OINTMENT 30 GM TUBE TP SCH ×2 (10:02→22:50)
[2022-12-08] MEDS: MUPIROCIN 2% TOPICAL OINTMENT 22 GM TUBE TP SCH ×2 (10:02→22:50)
[2022-12-08] MEDS: AMMONIUM LACTATE 12% LOTION 225 GM BOTTLE TP SCH ×2 (10:02→22:50)
[2022-12-08 10:04] LABS: N-TERMINAL BNP 25.3 pg/ml (5-125)
[2022-12-08] MEDS: TUBE FEED DECLOGGING SOLUTION 12,000 UNITS GT SCH ×3 (10:12→18:25)
[2022-12-08] MEDS: MONTELUKAST NA 10 MG TABLET PEG SCH (23:01)
[2022-12-08] MEDS: PHENobarbital 20 MG/5 ML UNIT-DOSE CUP GT SCH (23:01)
[2022-12-09] MEDS: LEVOTHYROXINE NA 25 MCG TABLET (FP) GT SCH (06:43)
[2022-12-09] MEDS: ALBUTEROL SO4 2.5/IPRATROPIUM 0.5 INH SOL 3 ML VIAL.NEB. NEB SCH ×3 (07:43→19:17)
[2022-12-09 09:14] LABS: POTASSIUM 4.2 mmol/L (3.5-5.1)
[2022-12-09 09:17] LABS: CALCIUM 10.1 mg/dL (8.5-10.1)
[2022-12-09 09:18] LABS: BLOOD UREA NITROGEN 8.3 mg/dL (7-18); MAGNESIUM 1.9 mg/dL (1.8-2.4)
[2022-12-09 09:20] LABS: CREATININE 0.3 mg/dL (0.55-1.3)
[2022-12-09 09:21] LABS: PHOSPHOROUS 4.2 mg/dL (2.5-4.9)
[2022-12-09] MEDS: ENOXAPARIN NA (PORCINE) 40 MG/0.4 ML DISP.SYRIN SQ SCH (09:45)
[2022-12-09] MEDS: DOCUSATE NA 100 MG/10 ML UNIT-DOSE CUPS GT SCH ×2 (09:46→23:04)
[2022-12-09] MEDS: BACLOFEN 10 MG TABLET (FP) GT SCH ×2 (09:46→23:04)
[2022-12-09] MEDS: predniSONE 5 MG/5 ML ORAL SOLN- UNIT-DOSE CUP GT SCH (09:46)
[2022-12-09] MEDS: TUBE FEED DECLOGGING SOLUTION 12,000 UNITS GT SCH ×3 (09:46→18:23)
[2022-12-09] MEDS: FAMOTIDINE 20 MG/2.5 ML ORAL LIQUID GT SCH (09:47)
[2022-12-09] MEDS: CALCIUM 500MG/VIT-D 200 UNITS COMBO TABLET (FP) GT SCH ×2 (09:47→23:04)
[2022-12-09] MEDS: AMMONIUM LACTATE 12% LOTION 225 GM BOTTLE TP SCH ×2 (09:52→23:08)
[2022-12-09] MEDS: MUPIROCIN 2% TOPICAL OINTMENT 22 GM TUBE TP SCH ×2 (09:52→23:07)
[2022-12-09] MEDS: ZINC OXIDE 20% TOPICAL OINTMENT 30 GM TUBE TP SCH ×2 (12:01→23:08)
[2022-12-09] MEDS: MONTELUKAST NA 10 MG TABLET PEG SCH (23:06)
[2022-12-09] MEDS ORDERED: PHENobarbital 20 MG/5 ML UNIT-DOSE CUP GT SCH (23:30)
[2022-12-09] MEDS: PHENobarbital 20 MG/5 ML UNIT-DOSE CUP GT SCH (23:48)
[2022-12-10] MEDS: PHENobarbital 20 MG/5 ML UNIT-DOSE CUP GT SCH ×2 (00:17→22:00)
[2022-12-10] MEDS: LEVOTHYROXINE NA 25 MCG TABLET (FP) GT SCH (06:02)
[2022-12-10] MEDS: ALBUTEROL SO4 2.5/IPRATROPIUM 0.5 INH SOL 3 ML VIAL.NEB. NEB SCH ×3 (07:10→20:05)
[2022-12-10] MEDS: DOCUSATE NA 100 MG/10 ML UNIT-DOSE CUPS GT SCH ×2 (09:42→21:59)
[2022-12-10] MEDS: MUPIROCIN 2% TOPICAL OINTMENT 22 GM TUBE TP SCH (09:42)
[2022-12-10] MEDS: predniSONE 5 MG/5 ML ORAL SOLN- UNIT-DOSE CUP GT SCH (09:43)
[2022-12-10] MEDS: AMMONIUM LACTATE 12% LOTION 225 GM BOTTLE TP SCH (09:45)
[2022-12-10] MEDS: ENOXAPARIN NA (PORCINE) 40 MG/0.4 ML DISP.SYRIN SQ SCH (09:46)
[2022-12-10] MEDS: ZINC OXIDE 20% TOPICAL OINTMENT 30 GM TUBE TP SCH (09:47)
[2022-12-10] MEDS: FAMOTIDINE 20 MG/2.5 ML ORAL LIQUID GT SCH (09:47)
[2022-12-10] MEDS: CALCIUM 500MG/VIT-D 200 UNITS COMBO TABLET (FP) GT SCH ×2 (09:47→22:00)
[2022-12-10] MEDS: BACLOFEN 10 MG TABLET (FP) GT SCH ×2 (09:50→21:59)
[2022-12-10] MEDS: TUBE FEED DECLOGGING SOLUTION 12,000 UNITS GT SCH ×3 (12:24→17:59)
[2022-12-10] MEDS: SILVER SULFADIAZINE 1% TOP CREAM 50 GM JAR TP SCH (17:57)
[2022-12-10] MEDS: MONTELUKAST NA 10 MG TABLET PEG SCH (22:01)
[2022-12-11] MEDS: MUPIROCIN 2% TOPICAL OINTMENT 22 GM TUBE TP SCH ×2 (00:02→10:50)
[2022-12-11] MEDS: AMMONIUM LACTATE 12% LOTION 225 GM BOTTLE TP SCH ×2 (00:03→10:49)
[2022-12-11] MEDS: ZINC OXIDE 20% TOPICAL OINTMENT 30 GM TUBE TP SCH ×2 (00:05→10:51)
[2022-12-11] MEDS: LEVOTHYROXINE NA 25 MCG TABLET (FP) GT SCH (06:14)
[2022-12-11] MEDS: ALBUTEROL SO4 2.5/IPRATROPIUM 0.5 INH SOL 3 ML VIAL.NEB. NEB SCH ×2 (07:39→13:47)
[2022-12-11] MEDS ORDERED: predniSONE 5 MG/5 ML ORAL SOLN- UNIT-DOSE CUP GT SCH (10:00)
[2022-12-11] MEDS: BACLOFEN 10 MG TABLET (FP) GT SCH (10:49)
[2022-12-11] MEDS: DOCUSATE NA 100 MG/10 ML UNIT-DOSE CUPS GT SCH (10:49)
[2022-12-11] MEDS: TUBE FEED DECLOGGING SOLUTION 12,000 UNITS GT SCH ×2 (10:49→15:26)
[2022-12-11] MEDS: FAMOTIDINE 20 MG/2.5 ML ORAL LIQUID GT SCH (10:49)
[2022-12-11] MEDS: ENOXAPARIN NA (PORCINE) 40 MG/0.4 ML DISP.SYRIN SQ SCH (10:49)
[2022-12-11] MEDS: CALCIUM 500MG/VIT-D 200 UNITS COMBO TABLET (FP) GT SCH (10:49)
[2022-12-11] MEDS: SILVER SULFADIAZINE 1% TOP CREAM 50 GM JAR TP SCH (10:51)
[2022-12-11 14:29] VITALS: BP 119/62; PULSE 84; RESP 18; TEMP 97.4
== END 2022-12-11 17:54 | DRG 133 ==
LOC: JER 13:04 → JERBED 16:09 → J4S 17:48 → J6S 12-06 20:54
PROVIDERS: ADMIT Internal Medicine; ATTEND Internal Medicine
DX: J96.01 Acute respiratory failure with hypoxia (principal); G82.50 Quadriplegia, unspecified; F72 Severe intellectual disabilities; J45.901 Unspecified asthma with (acute) exacerbation; Q02 Microcephaly; G40.909 Epilepsy, unspecified, not intractable, without status epilepticus; J98.11 Atelectasis; L73.0 Acne keloid; K94.22 Gastrostomy infection; Y83.9 Surgical procedure, unspecified as the cause of abnormal reaction of the patient, or of later complication, without mention of misadventure at the time of the procedure; E87.6 Hypokalemia; E03.9 Hypothyroidism, unspecified; E83.39 Other disorders of phosphorus metabolism
CPT/HCPCS: 0241U-QW; 36415; 71045-TC-FY; 74018-TC-FY; 74177-TC; 80048; 80053; 81003; 82550; 82553; 82803; 82962; 83605; 83735; 83880; 84100; 84484; 85025; 85027; 85610; 85730; 86850; 86900; 86901; 87040; 87070; 87086; 87205; 93005; 93010; 94640; 94761; 99285-25; J0475; Q9967